=== PATIENT | male | born 1945 | race Caucasian/White ===

== ENCOUNTER → 2017-12-04 08:18 | Outpatient (CLI) | payer OTHER, SELFPAY ==
--- NOTE | 2017-12-04 08:20 | BD_ITS ---
STUDY: DUAL ENERGY X-RAY ABSORPTIOMETRY / DXA REASON FOR EXAM: Male, 71 years old. Osteopenia TECHNIQUE: Bone Mineral Density (BMD) measurements of lumbar spine and bilateral hips were obtained. COMPARISON: None. FINDINGS: Lumbar Spine (L1-L4): g/cm2 (1.219) / T-score (0) / Z-score (0.6) Findings are suggestive of with a fracture risk. Left Femur Total: g/cm2 0.9) / T-score (-1.2) / Z-score (-0.5) Left Femoral Neck: g/cm2 (0.78) / T-score (-2.2) / Z-score (-0.9) Right Femur Total: g/cm2 (0.866) / T-score (-1.6) / Z-score (-0.9) Right Femoral Neck: g/cm2 (0.78) / T-score (-2.2) / Z-score (-0.9) BD/Dexa Bone Density Study IMPRESSION: The patient is considered osteopenic as outlined below according to World [place] Organization (WHO) criteria with an increased fracture risk. There has been of bone density since the previous examination. Reference Information: The T-score is the number of standard deviations above or below the standard which is normal for young adults at their peak bone mineral density. The World Health Organization (WHO) interprets the T-scores as follows: Above -1 Normal bone density Between -1 and -2.5 Osteopenia Equal to / or below -2.5 Osteoporosis As a practical clinical guideline, osteopenia may be graded as follows: Mild -1 through -1.5 Moderate -1.6 through -2.0 Severe -2.1 through -2.4 The Z-score is the number of standard deviations above or below age-matched controls. A Z-score of less than -1.5 would be considered abnormal. References: 1. NIH Osteoporosis and Related Bone Diseases http://www.osteo.org 2. International Society for Clinical Densitometry http://www.iscd.org 3. National Osteoporosis Foundation http://www.nof.org Electronically Signed: Jose M Orellana MD at 22:37 EDT , Service support ,
== END ==
PROVIDERS: Visit Provider Internal Medicine
DX: M85.9 Disorder of bone density and structure, unspecified (principal)
CPT/HCPCS: 77080

== ENCOUNTER → 2019-12-10 16:52 | Outpatient (CLI) | payer MEDICARE, OTHER, SELFPAY ==
[2015-04-19 10:05] VITALS: BMI 28.5
[2019-12-10 17:13] LABS: Absolute Lymphocyte Count 1.43 X10^3/uL (0.83-4.51); Absolute Neutrophil Count 5.1 X10^3/uL (2.0-7.7); Basophil# 0.07 X10^3/uL; Basophil% 0.9 % (0-1); Eosinophil# 0.36 X10^3/uL; Eosinophils% 4.5 % (0-5); Hematocrit 52.3 % (40-54); Hemoglobin 17.5 g/dL (13.0-16.5); Lymphocyte # 1.43 X10^3/ul (4.0); Lymphocyte % 17.8 % (19-41); Mean Corp Hgb Conc 33.5 g/dL (32-36); Mean Corpuscular Hgb 32.2 pg (27.0-32.0); Mean Corpuscular Volume 96.1 fL (80-94); Mean Platelet Vol. 9.2 fl (6.2-12.0); Monocyte# 0.99 X10^3/uL; Monocyte% 12.3 % (0-10); NRBC Flagged by Analyzer 0 % (0-5); Neutrophil # 5.14 X10^3/uL (2.7-7.7); Neutrophil % 63.9 % (47-70); Platelet Count 211 K/mm3 (150-450); RBC Distribution Width CV 12.5 % (11.6-14.6); RBC Distribution Width SD 44.2 fl (35.1-43.9); Red Blood Count 5.44 M/mm3 (4.6-6.2)
[2019-12-10 17:53] LABS: ALB/GLOB Ratio 1.1 RATIO (0.9-2.4); AST(SGOT) 22 U/L (15-37); Alanine Aminotransfer ALT/SGPT 53 U/L (16-61); Albumin, Serum 3.9 g/dL (3.2-5.0); Alkaline Phosphatase 94 U/L (45-117); Anion Gap 4 (5-15); BUN 25 mg/dL (7-18); BUN/Creat Ratio 20.7 RATIO (10-20); Calcium,Total 11.2 mg/dL (8.5-10.1); Chloride 105 mmol/L (98-107); Cholesterol 232 mg/dL (200); Creatinine, Serum 1.21 mg/dL (0.70-1.30); EST Glomerular Filtration Rate 62 mL/min (>60); Est Glom Filt Rate - Afr Amer 75 mL/min (>60); Globulin 3.5 g/dL (2.2-4.2); Glucose 88 mg/dL (74-106); High Density Lipoprotein 41 mg/dL; Potassium 4.4 mmol/L (3.5-5.1); Protein, Total 7.4 g/dL (6.4-8.2); Sodium Level 138 mmol/L (136-145); Thyroid Stim Hormone (TSH) 3.44 uIU/mL (0.358-3.74); Triglycerides 204 mg/dL; Very Low Density Lipoprotein 41 mg/dL (5-40)
[2019-12-11 08:12] LABS: Hepatitis C Antibody Non-Reactive (Nonreactive)
== END ==
PROVIDERS: Visit Provider Family Medicine Geriatric Medicine
DX: R53.83 Other fatigue (principal); E78.49 Other hyperlipidemia; Z13.89 Encounter for screening for other disorder
CPT/HCPCS: 36415; 80053; 80061; 84443; 85025; 86803

== ENCOUNTER → 2019-12-12 13:24 | Outpatient (CLI) | payer MEDICARE, SELFPAY ==
--- NOTE | 2019-12-12 13:32 | VDLE_ITS ---
Reason For Study: Limb pain RIGHT LEFT CFV is compressible, spontaneous, phasic, GSV is normal. competent and demonstrates normal CFV is compressible, spontaneous, phasic, augmentation. competent, and demonstrates normal Procedure augmentation. Exam performed in department. FV is compressible, spontaneous, phasic, A preliminary report was called and/or faxed competent and demonstrates normal to Melquiades. Pt sent up to office. augmentation. Left PopV is partially compressible with minimal venous flow noted. Acute deep vein thrombosis is noted in the left PopV, T/P Trunk, PTV, PeroV and SoleusV. Interpretation Summary Acute deep vein thrombosis is noted in the left popliteal vein. Acute deep vein thrombosis is noted in the left tibio-peroneal trunk. Acute deep vein thrombosis is noted in the left posterior tibial vein. Acute deep vein thrombosis is noted in the left peroneal vein. Acute deep vein thrombosis is noted in the left soleus vein. The left common femoral vein and femoral vein are patent, compressible, and competent. The left great saphenous vein appears patent and compressible segmentally. Ordering Physician: Elmer Arnett Referring Physician: [facility] Performed By: Enid Alejo RVT
== END ==
PROVIDERS: Visit Provider Family Medicine Geriatric Medicine
DX: M79.605 Pain in left leg (principal)
CPT/HCPCS: 93971

== ENCOUNTER → 2020-02-18 08:46 | Outpatient (CLI) | payer MEDICARE, SELFPAY ==
--- NOTE | 2020-02-18 10:33 | NEURO ---
NCS and/or EMG Patient Report Ordering Doctor: Elmer Arnett Chi DATE OF SERVICE: 02/18/20 Toni Morfin is a 74 year old male who presents for electrodiagnostic testing of the lower limbs. He has leg pain and tingling for the past 6 months. Electrodiagnostic Findings: Normal left common peroneal and tibial motor responses. Normal left superficial peroneal response. Normal left tibial and peroneal F-waves. Prolonged left H-reflex. At this point, the patient refused any further testing due to intolerance for the examination. Electrodiagnostic Assessment: This is a limited study. Normal motor and sensory responses are identified on the right side. However, the examination is incomplete and a conclusion cannot be reached from this test. If there are any further questions, please do not hesitate to contact me
== END ==
PROVIDERS: Referring Provider Family Medicine Geriatric Medicine; Visit Provider Family Medicine Geriatric Medicine
DX: R20.9 Unspecified disturbances of skin sensation (principal); M79.605 Pain in left leg
CPT/HCPCS: 95908

== ENCOUNTER 2020-06-02 09:10 | Day surgery (SDC) | payer MEDICARE, OTHER, SELFPAY ==
[2020-05-20 14:27] VITALS: BMI 30.1
[2020-06-02] VITALS (7 sets, daily range): BP systolic 94–132; BP diastolic 52–85; PULSE 73–89; RESP 14–18; TEMP 36.2–36.6; O2SAT 93–99; BMI 30.1
[2020-06-02] MEDS: Lactated Ringers 1,000 ML 100 ML IV (09:52)
--- NOTE | 2020-06-02 10:33 | OP.CCLET_ITS ---
06/02/2020 [facility] Re : Colonoscopy procedure for [facility] This procedure was performed on Tuesday, June 02, 2020. My impressions and recommendations are as follows: Impressions : - The entire examined colon is normal on direct and retroflexion views. - No specimens collected. Recommendations : - Discharge patient to home. - Resume previous diet. - Continue present medications. - Resume Xarelto (rivaroxaban) at prior dose today. - Repeat colonoscopy is not recommended due to current age (66 years or older) for screening purposes. My findings are described in the full procedure note, which is enclosed. If I can be of further assistance, please feel free to contact me at Doctor phone number(s): , Work: . Sincerely, Finn Romano MD 06/02/2020 10:33:00 AM This report has been signed electronically.
--- NOTE | 2020-06-02 10:33 | OP.COLON_ITS ---
Patient Name: Toni Morfin Procedure Date: 06/02/2020 9:46 AM Date of : 1945 Age: 74 Procedure: Colonoscopy Indications: Screening for colorectal malignant neoplasm Providers: Finn Romano MD Referring MD: [facility] Medicines: Monitored Anesthesia Care Patient Profile: This is a 74 year old male. Refer to note in patient chart for documentation of history and physical. Last Colonoscopy: more than 10 years ago. Complications: No immediate complications. Procedure: Pre-Anesthesia Assessment: - Prior to the procedure, a History and Physical was performed, and patient medications and allergies were reviewed. The patient's tolerance of previous anesthesia was also reviewed. The risks and benefits of the procedure and the sedation options and risks were discussed with the patient. All questions were answered, and informed consent was obtained. Prior Anticoagulants: The patient has taken Xarelto (rivaroxaban), last dose was 2 days prior to procedure. After reviewing the risks and benefits, the patient was deemed in satisfactory condition to undergo the procedure. After I obtained informed consent, the scope was passed under direct vision. Throughout the procedure, the patient's blood pressure, pulse, and oxygen saturations were monitored continuously. The pediatric colonoscope was introduced through the anus and advanced to the cecum, identified by the appendiceal orifice, ileocecal valve and palpation. The colonoscopy was performed without difficulty. The patient tolerated the procedure well. The quality of the bowel preparation was good. Scope In: 10:18:03 AM Scope Withdrawal Time 0 hours 6 minutes 17 seconds Scope Out: 10:29:20 AM Total Procedure Duration Time 0 hours 11 minutes 17 seconds Findings: The entire examined colon appeared normal on direct and retroflexion views. Impression: - The entire examined colon is normal on direct and retroflexion views. - No specimens collected. Recommendation: - Discharge patient to home. - Resume previous diet. - Continue present medications. - Resume Xarelto (rivaroxaban) at prior dose today. - Repeat colonoscopy is not recommended due to current age (66 years or older) for screening purposes. Procedure Code(s): --- Professional --- G0121, Colorectal cancer screening; colonoscopy on individual not meeting criteria for high risk Diagnosis Code(s): --- Professional --- Z12.11, Encounter for screening for malignant neoplasm of colon CPT copyright 2017 [employer]. All rights reserved. The codes documented in this report are preliminary and upon jewelry sales coordinator review may be revised to meet current compliance requirements. Finn Romano MD 06/02/2020 10:33:00 AM This report has been signed electronically. Number of Addenda: 0 Note Initiated On: 06/02/2020 9:46 AM
--- NOTE | 2020-06-02 11:25 | HP_ITS ---
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: No Is patient in pain?: No Allergies No Known Allergies Allergy (Verified 05/20/20 14:27) Medications Rosuvastatin Calcium [Crestor] 40 mg PO QHS 05/04/14 [History Confirmed 04/17/15] Clopidogrel Bisulfate [Plavix] 75 mg PO DAILY 05/22/14 [History Confirmed 04/17/15] Metoprolol Tartrate [Lopressor (beta neno)] 25 mg PO BID #0 04/19/15 [Rx Confirmed 04/17/15] cholecalciferol (vitamin D3) 50 mcg (2,000 unit) capsule 50 mcg PO DAILY 05/20/20 [History Confirmed 05/20/20] cinacalcet 30 mg tablet 30 mg PO BID 05/20/20 [History Confirmed 05/20/20] lisinopril 10 mg tablet 2.5 mg PO DAILY tab 05/20/20 [History] rivaroxaban 20 mg tablet 20 mg PO DAILY 05/20/20 [History Confirmed 05/20/20] PFSH Medical History Condyloma acuminata (Acute) Hyperlipidemia (Acute) Hyperparathyroidism (Acute) RLS (restless legs syndrome) (Acute) Sleep apnea (Acute) Dog bite (Acute) DVT (deep venous thrombosis) (Acute) Coronary artery disease (Chronic) Surgical History s/p shrapnel removal (Acute) S/P hernia repair (Acute) Status post hemorrhoidectomy (Acute) Family History Mother Breast cancer Sister Breast cancer Social History (Updated 05/20/20 @ 14:[address] Finn Romano MD) Smoking Status: Never smoker alcohol intake: never HPI HPI HPI: YAHAIRA PÉREZ, is a 74 M who presents to the office today for HPI HPI Surgical H&P: Yes HPI: YAHAIRA BETO, is a 74 M who presents to the office today for Colonoscopy. The patient has last colonoscopy over 10 years ago and no polyps were found. He is not having any abdominal pain or blood in his stool. ROS General General: No weight change or fatigue Cardio Cardiovascular: No murmur, pacemaker, heart disease, atrial fibrillation, high blood pressure, heart attack, heart stent, palpitations, shortness of breat with exertion or chest pain Psych Psychiatric: No depression or anxiety Resp Respiratory: No shortness of breath, No sleep apnea, No cough, No COPD, No asthma, No emphysema, No wheezing Gastro Gastrointestinal: No abdominal pain, No nausea or vomiting, No diarrhea, No constipation, No blood in stool, No acid reflux, No hemorrhoids, No ulcers, No gallbladder problem, No black,tarry stools Luis Hematologic: No blood thinners Exam Const General: cooperative Orientation: alert, oriented x3 Resp Effort & Inspection: normal respiratory effort Auscultation: clear to auscultation bilaterally Cardio Rate: regular rate Rhythm: regular rhythm Heart Sounds: no murmurs GI Inspection: non-distended Palpation: soft, nontender Assessment & Plan Problems 1. Screening for colon cancer Z12.11 Plan Patient required screening colonoscopy. His last colonoscopy was over 10 years ago and was normal. Patient is on both Xarelto and Plavix. I would recommend he stop Xarelto 3 days before surgery but continue his Plavix. I explained endoscopy in detail to the patient. I explained the risks including but not limited to stroke or heart attack with anesthesia, perforation of the GI tract, bleeding, infection. I explained that any of these could necessitate further emergency surgery. The patient understands and all questions were answered sufficiently. The patient wishes to proceed with procedure. We discussed the current risks associated with COVID-19. While it is understood that there is a community spread of COVID-19, the risk of bal[place] COVID-19 while at [facility] ([facility]) is very low; however, the risk cannot be completely mitigated because of the community spread of the disease. We discussed in detail the risk of exposure to and/or potential harm posed by the COVID-19 virus with having a surgery/procedure at this time versus the risk of delaying the surgery/procedure. It is not possible to know either the risk of delaying the surgery or procedure or chance of getting an infection with perfect accuracy, but a joint decision was made to proceed at this time with the scheduled surgery/procedure as indicated on the consent form. Patient was notified that we will need to comply with any screening or testing [facility] wishes to perform or that surgery may be delayed for any positive results. Finn Romano MD Pager: [facility] [address] [place] [address], [address] [place] [address] Office: Coding Level of Care Code Off vis,new,level 2 Diagnoses Screening for colon cancer Z12.11 I have re-examined the patient. There are no clinical changes since date of exam.
== END 2020-06-02 11:16 | disposition home or self-care (01) ==
LOC: EN 09:10 → AC 09:11
PROVIDERS: Anesthesiology; Visit Provider Surgery
PROC: 0DJD8ZZ Inspection of Lower Intestinal Tract, Via Natural or Artificial Opening Endoscopic (ICD-10-PCS; CPT 45378; principal; 2020-06-02 10:10)
DX: Z12.11 Encounter for screening for malignant neoplasm of colon (principal); E78.5 Hyperlipidemia, unspecified; E21.3 Hyperparathyroidism, unspecified; G25.81 Restless legs syndrome; G47.30 Sleep apnea, unspecified; I10 Essential (primary) hypertension; I25.10 Atherosclerotic heart disease of native coronary artery without angina pectoris; I25.2 Old myocardial infarction; E78.00 Pure hypercholesterolemia, unspecified; Z87.442 Personal history of urinary calculi; Z86.718 Personal history of other venous thrombosis and embolism; Z95.5 Presence of coronary angioplasty implant and graft; Z79.01 Long term (current) use of anticoagulants; Z79.02 Long term (current) use of antithrombotics/antiplatelets; Z79.899 Other long term (current) drug therapy
CPT/HCPCS: G0121; 87635; C9803; J7120; J2405; U0003

== ENCOUNTER 2021-12-01 00:48 | Emergency (ER) | payer OTHER, SELFPAY ==
[2021-12-01 00:49] VITALS: BP 170/93; PULSE 67; RESP 97; TEMP 36.6; BMI 30.1
--- NOTE | 2021-12-01 01:25 | CT_ITS ---
STUDY: CT ABDOMEN AND PELVIS WITHOUT CONTRAST REASON FOR EXAM: Male, 75 years old. right flank pain RADIATION DOSAGE (If Supplied By Facility): CTDIvol = ( 13.29 ) mGy, DLP = ( 760.39 ) mGycm TECHNIQUE: Transaxial images were obtained from the dome of the diaphragm to the symphysis pubis without oral contrast, and without intravenous contrast. Sagittal and coronal images were reconstructed. Individualized dose optimization techniques were used for this CT. COMPARISON: CT abdomen pelvis 04/16/2015 LIMITATIONS: None. LOWER CHEST: Coronary artery calcifications. LIVER: Hypoattenuating left hepatic lesion, similar compared to the prior, too small to characterize.. GALLBLADDER/BILE DUCTS: Normal. PANCREAS: Normal. SPLEEN: Normal. ADRENAL GLANDS: Normal. KIDNEYS/URETERS/BLADDER: Mild urinary bladder wall thickening. Punctate nonobstructive left nephrolithiasis again seen. Mild right hydroureteronephrosis due to a 11 mm calculus in the distal right ureter. Mild right perinephric and periureteral fat stranding. RETROPERITONEUM/AORTA: Moderate atherosclerotic calcifications. BOWEL/MESENTERY: Scattered colonic diverticulosis without discrete evidence of acute diverticulitis. No bowel dilatation or bowel wall thickening. APPENDIX: Identified and normal. PERITONEUM: Normal. REPRODUCTIVE ORGANS: Prostatomegaly BONES/SOFT TISSUES: No acute abnormality. OTHER: None. CT/Abdomen/Pelvis without Cont IMPRESSION: 1. Mild right hydroureteronephrosis due to a 11 mm calculus in the distal right ureter. 2. Punctate nonobstructive left nephrolithiasis. 3. Mild urinary bladder wall thickening and prostatomegaly, may be due to decompression, cystitis or chronic bladder outlet obstruction. Electronically Signed: Javy Aguayo MD at 3:13 EDT ,
[2021-12-01 02:20] LABS: Absolute Lymphocyte Count 1.19 X10^3/uL (0.83-4.51); Absolute Neutrophil Count 2.6 X10^3/uL (2.0-7.7); Basophil# 0.04 X10^3/uL; Basophil% 0.8 % (0-1); Eosinophil# 0.18 X10^3/uL; Eosinophils% 3.8 % (0-5); Hematocrit 45.4 % (40-54); Hemoglobin 15.3 g/dL (13.0-16.5); Lymphocyte # 1.19 X10^3/ul (0.83-4.51); Lymphocyte % 24.8 % (19-41); Mean Corp Hgb Conc 33.7 g/dL (32-36); Mean Corpuscular Hgb 32.3 pg (27.0-32.0); Mean Corpuscular Volume 95.8 fL (80-94); Mean Platelet Vol. 9.5 fl (6.2-12.0); Monocyte% 16.7 % (0-10); NRBC Flagged by Analyzer 0 % (0-5); Neutrophil # 2.55 X10^3/uL (2.7-7.7); Neutrophil % 53.3 % (47-70); Platelet Count 181 K/mm3 (150-450); RBC Distribution Width CV 12.8 % (11.6-14.6); RBC Distribution Width SD 45.4 fl (35.1-43.9); Red Blood Count 4.74 M/mm3 (4.6-6.2); White Blood Count 4.8 K/mm3 (4.4-11.0)
[2021-12-01 02:23] LABS: Mucous, Urine 0 SEEN /hpf (<or=2+); Squamous Epithelial Cells - UA 0 SEEN /hpf (0-5); White Blood Cells 0 SEEN /hpf (0-5)
[2021-12-01 02:24] LABS: Color, Urine Yellow (Yellow); Glucose, Dipstick Normal (Normal); Ketone-Dipstick Negative (Negative); Leukocyte Esterase-Dipstick Negative /ul (Negative); Nitrite-Dipstick Negative (Negative); Occult Blood-Urine 10 /ul (Negative); Protein-Dipstick 15 mg/dl (Negative); Urine Bilirubin Dipstick Negative (Negative); Urine Clarity Clear (Clear); Urine Urobilinogen Normal (Normal)
[2021-12-01] MEDS: 0.9% Normal Saline 1,000 ML 999 ML IV (02:24)
[2021-12-01] MEDS: Ketorolac 15 MG/ML Vial IV (02:24)
[2021-12-01 02:25] VITALS: BP 127/81; PULSE 61; RESP 18; O2SAT 100
[2021-12-01 02:33] LABS: Bacteria 1+ /hpf (None Seen); Red Blood Cells-Urine 0-5 SEEN /hpf (0-5)
[2021-12-01 02:45] LABS: Anion Gap 5 (5-15); BUN 21 mg/dL (7-18); BUN/Creat Ratio 17.6 RATIO (10-20); Calcium,Total 10.2 mg/dL (8.5-10.1); Chloride 109 mmol/L (98-107); Creatinine, Serum 1.19 mg/dL (0.70-1.30); EST Glomerular Filtration Rate 63 mL/min (>60); Est Glom Filt Rate - Afr Amer 76 mL/min (>60); Estimated Creatinine Clearance 53.64 ml/min; Glucose 98 mg/dL (74-106); Potassium 4.6 mmol/L (3.5-5.1); Sodium Level 139 mmol/L (136-145)
[2021-12-01] MEDS: Ondansetron 4 MG/2 ML Vial IV (03:28)
[2021-12-01] MEDS: Morphine 4 MG/ML Syringe IV (03:28)
--- NOTE | 2021-12-01 04:03 | EDS_ITS ---
HPI History of Present Illness Chief Complaint: Flank Pain Narrative Narrative: Patient is a 75-year-old male who presents with right-sided flank. Patient states he was laying down to go to bed when he had sudden onset sharp right-sided flank pain wrapping towards his lower abdomen. He reports that he has had a history of kidney stones in the past and this feels similar nature. He denies any fevers or chills and he denies any recent trauma or excessive activity. He states that the pain is spontaneously improving but as he had concern he developed a stone once again presents for evaluation [facility] Medical History (Updated 12/01/21 @ 04:[address] Jose Landaverde, DO) Condyloma acuminata Coronary artery disease Dog bite DVT (deep venous thrombosis) Hyperlipidemia Hyperparathyroidism Kidney stones RLS (restless legs syndrome) Sleep apnea Home Medications rosuvastatin 40 mg PO QHS 05/04/14 [History Last Taken 04/16/15] clopidogrel 75 mg PO DAILY 05/22/14 [History Last Taken 04/16/15] metoprolol tartrate 25 mg PO BID #0 04/19/15 [Rx Last Taken 04/16/15] cholecalciferol (vitamin D3) 50 mcg (2,000 unit) capsule 50 mcg PO DAILY 05/20/20 [History Last Taken Unknown] L.acid-L.rham-B.breve-S.therm [Probiotic] 1 tab PO DAILY 12/01/21 [History Last Taken Unknown] ascorbic acid (vitamin C) [Vitamin C] 1 g PO DAILY 12/01/21 [History Last Taken Unknown] cephalexin 500 mg PO TID 7 Days #21 cap 12/01/21 [Rx Last Taken Unknown] oxycodone-acetaminophen [Percocet] 1 tab PO Q6H PRN 3 Days #12 tab 12/01/21 [Rx Last Taken Unknown] tamsulosin [Flomax] 0.4 mg PO DAILY 14 Days #14 cap 12/01/21 [Rx Last Taken Unknown] Allergy/AdvReac Type Severity Reaction Status Date / Time No Known Allergies Allergy Verified 05/26/20 11:27 Family History Mother Breast cancer Sister Breast cancer Surgical History S/P hernia repair s/p shrapnel removal Status post hemorrhoidectomy Social History (Updated 05/20/20 @ 14:[address] Finn Romano MD) Smoking Status: Never smoker alcohol intake: never ROS ROS ED Constitutional Constitutional ED: Denies chills or fever(s) ENT ENT ED: Denies sore throat Cardiovascular Cardiovascular: Denies chest pain Respiratory/Chest Respiratory/Chest: Denies cough or dyspnea Gastrointestinal Gastrointestinal: Reports abdominal pain and nausea; Denies diarrhea or vomiting Genitourinary Genitourinary ED: Denies dysuria or hematuria Musculoskeletal Musculoskeletal: Reports back pain; Denies myalgias Integumentary Denies rash Neurologic Neurologic: Denies headache(s) Hematologic/Lymphatic Hematologic/Lymphatic: Denies easy bleeding or easy bruising EXAM Physical Exam Const Vital Signs: 12/01/21 00:49 12/01/21 02:25 Temperature 97.8 F Temperature Source Oral Pulse Rate 67 61 Respiratory Rate 97 H 18 Blood Pressure 170/93 H 127/81 H Blood Pressure Mean 118 96 Pulse Ox 100 Oxygen Delivery Method Room Air Room Air Positive well nourished and well developed General Appearance ED: well developed Eyes PERRL and EOMs intact bilaterally Neck supple Resp normal respiratory effort and clear to auscultation bilaterally Cardio regular rate and regular rhythm Rate: other Other Details: Radial pulses are +2-4 bilaterally are equal and symmetric GI normal to inspection, nondistended, normoactive bowel sounds, non-tender, non- distended and no masses GI Narrative: No voluntary guarding or rigidity no pulsatile mass Auscultation: normoactive bowel sounds Palpation: soft Back/Spine Back/Spine Narrative: Positive right CVA pain Extremity normal to inspection Neuro oriented x3 and CN's II-XII intact bilaterally Sensorium / Orientation: alert Motor Exam: strength 5/5 throughout Psych mental status grossly normal Skin no rashes or lesions noted Skin Narrative: No overlying soft tissue changes to suggest trauma or infection MDM MDM MDM Narrative Medical decision making narrative: Patient presented to the ER with stable vitals and a history and physical exam most consistent with a kidney stone. Secondary to his basic blood work and a noncontrast CT report. Blood work revealed no signs of acute kidney injury or urosepsis. CT scan confirmed a 11 mm stone in the right distal ureter. At this time the stone is very large and his chance for passing it is low but despite this has been able to move the stone to the distal ureter and he does not have signs of acute kidney injury or urosepsis. His pain is also been controlled in the ER. Therefore I feel that it is acceptable to put the patient on medication and have him follow-up with urology to discuss need for stent placement. The plan of care was discussed with the patient and they are agreeable to this and therefore we discharged at this time. Lab Data Attestation: I reviewed the patient's lab results. Labs: Laboratory Results - last 24 hr 12/01/21 12/01/21 12/01/21 01:40 01:40 02:15 WBC 4.8 RBC 4.74 Hgb 15.3 Hct 45.4 MCV 95.8 H MCH 32.3 H MCHC 33.7 RDW Std Deviation 45.4 H RDW Coeff of Tommie 12.8 Plt Count 181 MPV 9.5 Immature Gran % (Auto) 0.600 Neut % (Auto) 53.3 Lymph % (Auto) 24.8 [place] % (Auto) 16.7 H Eos % (Auto) 3.8 Baso % (Auto) 0.8 Absolute Neuts (auto) 2.6 Absolute Lymphs (auto) 1.19 Nucleated RBC % 0 Sodium 139 Potassium 4.6 Chloride 109 H Carbon Dioxide 25.0 Anion Gap 5 BUN 21 H Creatinine 1.19 Estim Creat Clear Calc 53.64 Est GFR (MDRD) Af Amer 76 Est GFR (MDRD) Non-Af 63 BUN/Creatinine Ratio 17.6 Glucose 98 Calcium 10.2 H Urine Color Yellow Urine Clarity Clear Urine pH 6.0 Ur Specific [place] 1.020 Urine Protein 15 H Urine Glucose (UA) Normal Urine Ketones Negative Urine Occult Blood 10 H Urine Nitrite Negative Urine Bilirubin Negative Urine Urobilinogen Normal Ur Leukocyte Esterase Negative Urine RBC 0-5 SEEN Urine WBC 0 SEEN Ur Squamous Epith Cells 0 SEEN Urine Bacteria 1+ Urine Mucus 0 SEEN Radiography Diagnostic Testing: Clinical Impression(s) from Imaging Studies Abdomen/Pelvis CT 12/01/21 01:25 IMPRESSION: 1. Mild right hydroureteronephrosis due to a 11 mm calculus in the distal right ureter. 2. Punctate nonobstructive left nephrolithiasis. 3. Mild urinary bladder wall thickening and prostatomegaly, may be due to decompression, cystitis or chronic bladder outlet obstruction. Electronically Signed: Javy Aguayo MD at 3:13 EDT , Discharge Plan Triage Chief Complaint: Flank Pain ED Provider: Jose Landaverde Dx/Rx/DC Orders Clinical Impression: Kidney stone on right side, Renal colic Instructions: ED Kidney Stone w/ Colic Prescriptions: New cephalexin 500 mg capsule 500 mg PO TID 7 Days Qty: 21 RF: 0 tamsulosin [Flomax] 0.4 mg capsule 0.4 mg PO DAILY 14 Days Qty: 14 RF: 0 oxycodone-acetaminophen [Percocet] 5-325 mg tablet 1 tab PO Q6H PRN (Reason: pain) 3 Days Qty: 12 RF: 0 No Action cholecalciferol (vitamin D3) 50 mcg (2,000 unit) capsule 50 mcg PO DAILY RF: 0 rosuvastatin 5 MG tablet 40 mg PO QHS RF: 0 clopidogrel 75 MG tablet 75 mg PO DAILY RF: 0 metoprolol tartrate 25 MG tablet 25 mg PO BID Qty: 0 RF: 0 ascorbic acid (vitamin C) [Vitamin C] 1,000 mg Tablet 1 g PO DAILY RF: 0 Probiotic 3 billion cell Tablet,Chewable 1 tab PO DAILY RF: 0 [facility] Provider[facility] Referrals: Obdulio Smith MD [STAFF PHYSICIAN] - 3-5 Days [facility] [Primary Care Provider] - Activity Restrictions/Additional Instructions: Please follow-up with urology to discuss need for possible stent placement secondary to your kidney stone. Please return to the ER should you develop a fever over 100.4 or your pain is not controlled with outpatient treatment Disposition Disposition: Home, Self Care Discharge Date/Time: 12/01/21 04:24
[2021-12-01] MEDS: Cephalexin 250 MG Capsule 500 MG PO (04:18)
[2021-12-01] MEDS: oxyCODONE 5 MG Tablet PO (04:18)
== END 2021-12-01 04:24 | disposition home or self-care (01) ==
PROVIDERS: Emergency Provider Emergency Medicine; Visit Provider Emergency Medicine
DX: N13.2 Hydronephrosis with renal and ureteral calculous obstruction (principal); E78.5 Hyperlipidemia, unspecified; I25.10 Atherosclerotic heart disease of native coronary artery without angina pectoris; Z86.718 Personal history of other venous thrombosis and embolism; G25.81 Restless legs syndrome; Z87.442 Personal history of urinary calculi; Z79.899 Other long term (current) drug therapy; Z79.02 Long term (current) use of antithrombotics/antiplatelets
CPT/HCPCS: 74176; 80048; 81001; 85025; 96361; 96374; 96375; 99282; J7030; J2405

== ENCOUNTER 2021-12-06 14:41 | Day surgery (SDC) | payer MEDICARE, SELFPAY ==
[2021-12-06] VITALS (7 sets, daily range): BP systolic 106–156; BP diastolic 63–87; PULSE 70–76; RESP 16; TEMP 36.6–36.9; O2SAT 91–99; BMI 29.7
[2021-12-06] MEDS: Lactated Ringers 1,000 ML 15 ML IV (15:12)
--- NOTE | 2021-12-06 15:44 | PCM.DC ---
Discharge Instructions Diet Discharge Diet: No restrictions Activity Discharge Activity: Return to Normal Activity and May Not Drive (while taking narcotic pain medications.) Dressing / Incision Call your doctor if you observe: Fever of 101 or Higher Follow Up Care Please Follow Up With: Obdulio Smith MD When: Call [phone] for an appointment Test Results: Test results from this visit will be discussed in further detail at your follow-up appointment, if applicable. Discharge Plan Admission Attending Provider: Obdulio Smith Primary Care Provider: [facility] Discharge Orders/Prescriptions Prescriptions: No Action cholecalciferol (vitamin D3) 50 mcg (2,000 unit) capsule 50 mcg PO DAILY RF: 0 rosuvastatin 5 MG tablet 40 mg PO QHS RF: 0 clopidogrel 75 MG tablet 75 mg PO DAILY RF: 0 metoprolol tartrate 25 MG tablet 25 mg PO BID Qty: 0 RF: 0 ascorbic acid (vitamin C) [Vitamin C] 1,000 mg Tablet 1 g PO DAILY RF: 0 Probiotic 3 billion cell Tablet,Chewable 1 tab PO DAILY RF: 0 cephalexin 500 mg capsule 500 mg PO TID 7 Days Qty: 21 RF: 0 tamsulosin [Flomax] 0.4 mg capsule 0.4 mg PO DAILY 14 Days Qty: 14 RF: 0 oxycodone-acetaminophen [Percocet] 5-325 mg tablet 1 tab PO Q6H PRN (Reason: pain) 3 Days Qty: 12 RF: 0
--- NOTE | 2021-12-06 15:44 | PCM.OPRPT ---
Problems Associated Problem List Diagnoses (1) Kidney stone on right side: Report of Operation Date of Procedure: 12/06/21 Pre-Operative Diagnosis: right kidney stone Post-Operative Diagnosis: same Surgery/Procedure Performed:: cystoscopy and right stent placement. Description of Surgical Findings:: Patient was taken back to the operating room after induction of general anesthesia, the patient was placed in dorsolithotomy position. The urethra and genitals were prepped and draped in usual sterile fashion. Using a 21 Macanese rigid cystourethroscope the entire length of the urethra was normal then went into the bladder. Identified the trigone the left and right ureteral orifice. I then cannulated the right orifice and advanced a wire up into the kidney. I then backloaded a 5 Macanese open ended catheter over the wire and injected contrast to delineate the anatomy. After the retrograde was performed I then used fluoroscopic images and guidance to advanced a wire up into the kidney and over the 0.038 glidewire I advanced a 6 Macanese by 26 cm double pigtail stent. I then pulled the 0.038 Glidewire off and the stent coiled in the kidney bladder good position. The bladder was then drained. We confirmed the position of the stent by fluoroscopy. Patient anesthetic was reversed and was taken back to the PACU in good condition. Surgeon: pilo Type of Anesthesia: General Drains: stent right Admit VTE Documentation VTE Present on Admission: No VTE Mechan Device Prophylaxis: SCD's VTE Pharm Prophylaxis ordered?: No
[2021-12-06] MEDS: Cefazolin 1 GM/50 ML BAG IV (15:47)
[2021-12-06] MEDS: Lidocaine Jelly 2% 20 ML Syringe (URO-JET) 1 APPLIC (15:52)
--- NOTE | 2021-12-07 14:54 | HP.PCM_ITS ---
HPI - General HPI Narrative YAHAIRA PÉREZ, is a 75 M who presents with a kidney stone and plan to place as stent today. [facility] Medical History (Updated 12/01/21 @ 04:[address] Jose Landaverde DO) Condyloma acuminata Coronary artery disease Dog bite DVT (deep venous thrombosis) Hyperlipidemia Hyperparathyroidism Kidney stones RLS (restless legs syndrome) Sleep apnea Home Medications rosuvastatin 40 mg PO QHS 05/04/14 [History Last Taken 04/16/15] clopidogrel 75 mg PO DAILY 05/22/14 [History Last Taken 12/06/21] metoprolol tartrate 25 mg PO BID #0 04/19/15 [Rx Last Taken 04/16/15] cholecalciferol (vitamin D3) 50 mcg (2,000 unit) capsule 50 mcg PO DAILY 05/20/20 [History Last Taken Unknown] L.acid-L.rham-B.breve-S.therm [Probiotic] 1 tab PO DAILY 12/01/21 [History Last Taken Unknown] ascorbic acid (vitamin C) [Vitamin C] 1 g PO DAILY 12/01/21 [History Last Taken Unknown] cephalexin 500 mg PO TID 7 Days #21 cap 12/01/21 [Rx Last Taken 12/06/21] oxycodone-acetaminophen [Percocet] 1 tab PO Q6H PRN 3 Days #12 tab 12/01/21 [Rx Last Taken 12/06/21] tamsulosin [Flomax] 0.4 mg PO DAILY 14 Days #14 cap 12/01/21 [Rx Last Taken 12/06/21] ciprofloxacin HCl [Cipro] 500 mg PO BID #6 tab 12/06/21 [Rx Last Taken Unknown] oxycodone-acetaminophen 1 tab PO Q6H PRN 7 Days #14 tab 12/06/21 [Rx Last Taken Unknown] Allergy/AdvReac Type Severity Reaction Status Date / Time No Known Allergies Allergy Verified 12/06/21 14:54 Family History Mother Breast cancer Sister Breast cancer Surgical History S/P hernia repair s/p shrapnel removal Status post hemorrhoidectomy Social History (Updated 05/20/20 @ 14:[address] Finn Romano MD) Smoking Status: Never smoker alcohol intake: never Vital Signs Vital Signs Vital Signs: 12/06/21 14:57 12/06/21 16:03 12/06/21 16:06 Temperature 97.9 F 98.1 F Temperature Source Temporal Temporal Pulse Rate 72 76 73 Respiratory Rate 16 16 16 Respiratory Pattern Normal Normal Blood Pressure 156/87 H 106/65 112/66 Blood Pressure Mean 110 78 81 Blood Pressure Source Monitor Monitor Monitor Blood Pressure Position Semi-Fowlers Semi-Fowlers Semi-Fowlers Blood Pressure Location Right Arm Left Arm Left Arm Baseline BP 156/87 156/87 Pulse Ox 99 93 91 Oxygen Delivery Method Room Air Room Air Room Air 12/06/21 16:10 12/06/21 16:15 12/06/21 16:19 Temperature 98.4 F Temperature Source Temporal Pulse Rate 71 70 73 Respiratory Rate 16 16 16 Respiratory Pattern Blood Pressure 112/63 122/70 H 134/75 H Blood Pressure Mean 79 87 94 Blood Pressure Source Monitor Monitor Monitor Blood Pressure Position Semi-Fowlers Semi-Fowlers Semi-Fowlers Blood Pressure Location Right Arm Left Arm Left Arm Baseline BP 156/87 156/87 156/87 Pulse Ox 93 93 96 Oxygen Delivery Method Room Air Room Air Room Air 12/06/21 16:33 12/06/21 16:56 Temperature 98.1 F Temperature Source Temporal Pulse Rate 72 Respiratory Rate 16 Respiratory Pattern Normal Blood Pressure 135/63 H Blood Pressure Mean 87 Blood Pressure Source Monitor Blood Pressure Position Sitting Blood Pressure Location Left Arm Baseline BP 156/87 Pulse Ox 96 Oxygen Delivery Method Room Air Weight Weight: 91.172 kg Body Mass Index (BMI) 29.7
== END 2021-12-06 16:58 | disposition home or self-care (01) ==
LOC: SDC 14:44 → AC 14:48
PROVIDERS: Visit Provider Urology
PROC: (CPT 52332; principal; 2021-12-06 16:30)
DX: N20.0 Calculus of kidney (principal); E78.5 Hyperlipidemia, unspecified; Z86.718 Personal history of other venous thrombosis and embolism; I25.10 Atherosclerotic heart disease of native coronary artery without angina pectoris; Z87.442 Personal history of urinary calculi; G25.81 Restless legs syndrome; Z79.899 Other long term (current) drug therapy; Z79.02 Long term (current) use of antithrombotics/antiplatelets; G47.30 Sleep apnea, unspecified
CPT/HCPCS: 52332; 00910; 76000; J7120; C1769; C2617; J2405

== ENCOUNTER → 2021-12-08 | Outpatient (CLI) | payer MEDICARE, SELFPAY ==
--- NOTE | 2021-12-08 10:54 | EKG12_ITS ---
Test Reason : PRE-OP Blood Pressure : / mmHG Vent. Rate : 065 BPM Atrial Rate : 065 BPM P-R Int : 138 ms QRS Dur : 098 ms QT Int : 408 ms P-R-T Axes : -08 -14 -30 degrees QTc Int : 424 ms Normal sinus rhythm Inferior infarct , age undetermined Abnormal ECG Confirmed by RUSLAN LAWRENCE, KATHERINE ([id number]), editor managing newspaper ONELIA GUTIERREZ ([id number]) on 12/09/2021 9:44:05 AM Referred By: KAREN Confirmed By:ADARSH MERCER MD
== END | disposition home or self-care (01) ==
LOC: PSN 10:31
PROVIDERS: Visit Provider Urology
DX: Z01.810 Encounter for preprocedural cardiovascular examination (principal)
CPT/HCPCS: 93005

== ENCOUNTER 2021-12-10 13:35 | Emergency (ER) | payer OTHER, SELFPAY ==
[2021-12-10 13:35] VITALS: BP 155/90; PULSE 72; RESP 16; TEMP 36.3; O2SAT 99; BMI 29.5
--- NOTE | 2021-12-10 13:50 | ED.VIS.GI ---
HPI HPI - GI History of Present Illness Chief Complaint: Flank Pain Informant: patient and spouse/S.O. Abdominal Pain/Flank Pain Onset: Yesterday Context: - (since lithotripsy yesterday for R kid stone) Timing: Continuous Quality: Aching Location: Right Flank Current Severity: Severe Maximum Severity: Severe Worsened by: Nothing Relieved by: Nothing (tried Rx analgesic) Nausea/Vomiting/Emesis GI Symptom: Positive for Nausea; Negative for Vomiting Onset: Today Severity: Mild Diarrhea/Melena/Hematochezia GI Symptom: Negative for Diarrhea, Melena and Hematochezia Associated Symptoms Associated Symptoms: Negative for Dysuria, Frequency and Hematuria Narrative Narrative: Patient with kidney stone on the right, he had lithotripsy yesterday, discharged with pain medication and nausea medication, he states the pain medication is not controlling his pain. He has no other symptoms. [facility] Medical History Condyloma acuminata Coronary artery disease Dog bite DVT (deep venous thrombosis) Hyperlipidemia Hyperparathyroidism Kidney stones RLS (restless legs syndrome) Sleep apnea Home Medications rosuvastatin 40 mg PO QHS 05/04/14 [History Last Taken 04/16/15] clopidogrel 75 mg PO DAILY 05/22/14 [History Last Taken 12/06/21] metoprolol tartrate 25 mg PO BID #0 04/19/15 [Rx Last Taken 04/16/15] cholecalciferol (vitamin D3) 50 mcg (2,000 unit) capsule 50 mcg PO DAILY 05/20/20 [History Last Taken Unknown] L.acid-L.rham-B.breve-S.therm [Probiotic] 1 tab PO DAILY 12/01/21 [History Last Taken Unknown] ascorbic acid (vitamin C) [Vitamin C] 1 g PO DAILY 12/01/21 [History Last Taken Unknown] cephalexin 500 mg PO TID 7 Days #21 cap 12/01/21 [Rx Last Taken 12/06/21] oxycodone-acetaminophen [Percocet] 1 tab PO Q6H PRN 3 Days #12 tab 12/01/21 [Rx Last Taken 12/06/21] tamsulosin [Flomax] 0.4 mg PO DAILY 14 Days #14 cap 12/01/21 [Rx Last Taken 12/06/21] ciprofloxacin HCl [Cipro] 500 mg PO BID #6 tab 12/06/21 [Rx Last Taken Unknown] oxycodone-acetaminophen 1 tab PO Q6H PRN 7 Days #14 tab 12/06/21 [Rx Last Taken Unknown] oxycodone-acetaminophen 1 tab PO Q4H PRN 2 Days #12 tablet 12/10/21 [Rx Last Taken Unknown] Allergy/AdvReac Type Severity Reaction Status Date / Time No Known Allergies Allergy Verified 12/10/21 13:37 Family History Mother Breast cancer Sister Breast cancer Surgical History S/P hernia repair s/p shrapnel removal Status post hemorrhoidectomy Social History Smoking Status: Never smoker alcohol intake: never ROS ROS ED Constitutional Constitutional ED: Denies chills or fever(s) Eyes Eyes: Denies change in vision or diplopia ENT ENT ED: Denies rhinorrhea or sore throat Cardiovascular Cardiovascular: Denies chest pain or palpitations Respiratory/Chest Respiratory/Chest: Denies cough or dyspnea Gastrointestinal Gastrointestinal: Reports abdominal pain and nausea; Denies diarrhea or vomiting Genitourinary Genitourinary ED: Denies dysuria or hematuria Musculoskeletal Musculoskeletal: Reports back pain; Denies neck pain Integumentary Denies abscess or rash Neurologic Neurologic: Denies headache(s), paresthesias or weakness Psychiatric Psychiatric: Denies anxiety or suicidal thoughts EXAM Physical Exam Const Vital Signs: 12/10/21 13:35 Temperature 97.4 F L Temperature Source Temporal Pulse Rate 72 Respiratory Rate 16 Blood Pressure 155/90 H Blood Pressure Mean 111 Pulse Ox 99 Oxygen Delivery Method Room Air Positive well nourished and well developed General Appearance ED: well developed and NAD HEENT Reports moist mucous membranes normocephalic and atraumatic Eyes PERRL and EOMs intact bilaterally Neck full ROM and supple Resp normal respiratory effort and clear to auscultation bilaterally Cardio regular rate, regular rhythm and no murmurs GI non-distended GI Narrative: Very mild tenderness in right flank no guarding or rebound tenderness Auscultation: normoactive bowel sounds Palpation: soft Back/Spine General Back: CVA tenderness right and other FROM Extremity normal to inspection General Extremety ED: Negative for edema, pulses abnormal or tenderness General Extremity: Negative for edema or pulses abnormal Neuro oriented x3, CN's II-XII intact bilaterally and no sensory deficits noted Sensorium / Orientation: awake and alert Motor Exam: strength 5/5 throughout Skin no rashes or lesions noted and no wounds MDM MDM MDM Narrative Medical decision making narrative: Initially gave the patient a dose of subcutaneous morphine. He said that when he talked to his urologist over the phone, who is not on-call to contact today, he suggested that he would need a CT scan. Under these pretenses I performed a CT scan, it does not show any obstructing stones or any ureteral or renal stones on the right where he does have hydroureter and hydronephrosis. This is consistent with a stone that was recently passed. However, after the initial morphine, he was still in a lot of pain and requested more so I give him another dose, and he still was in a lot of pain. Therefore he had an IV placed, gave him a dose of Dilaudid, and ran some labs. He has a mild nonspecific leukocytosis, he has very mild increase in his creatinine compared to baseline, his urine does not show infection it is mostly blood for obvious reasons. However after this, he feels much better. I offered admission he declines and would prefer to go home. I agree that this could be due to a recently passed stone, there is no evidence of a rupture of ureter or the bladder, unknown if this is related to recent instrumentation/stenting, he had a stent removed yesterday. He understands reasons to return over the weekend. He is requesting a prescription for more pain medication just in case, which I provided him. Lab Data Attestation: I reviewed the patient's lab results. Labs: Laboratory Results - last 24 hr 12/10/21 12/10/21 12/10/21 14:20 15:22 15:22 WBC 13.0 H RBC 5.17 Hgb 16.8 H Hct 48.9 MCV 94.6 H MCH 32.5 H MCHC 34.4 RDW Std Deviation 43.1 RDW Coeff of Tommie 12.3 Plt Count 208 MPV 9.1 Immature Gran % (Auto) 0.500 Neut % (Auto) 72.8 H Lymph % (Auto) 9.4 L [place] % (Auto) 15.9 H Eos % (Auto) 0.8 Baso % (Auto) 0.6 Absolute Neuts (auto) 9.5 H Absolute Lymphs (auto) 1.22 Nucleated RBC % 0 Differential Comment SCANNED Platelet Estimate ADEQUATE RBC Morphology NORM C+C Sodium 133 L Potassium 4.4 Chloride 103 Carbon Dioxide 25.0 Anion Gap 5 BUN 26 H Creatinine 1.46 H Estim Creat Clear Calc 43.72 Est GFR (MDRD) Af Amer 60 Est GFR (MDRD) Non-Af 50 L BUN/Creatinine Ratio 17.8 Glucose 106 Calcium 11.0 H Urine Color Yellow Urine Clarity Sl. Cloudy Urine pH 6.0 Ur Specific [place] 1.025 Urine Protein 500 H Urine Glucose (UA) Normal Urine Ketones Negative Urine Occult Blood 250 H Urine Nitrite Negative Urine Bilirubin Negative Urine Urobilinogen Normal Ur Leukocyte Esterase 25 H Urine RBC 50-100 SEEN Urine WBC 0-5 SEEN Ur Squamous Epith Cells 0 SEEN Urine Bacteria Not Reportable Urine Mucus 0 SEEN Radiography Diagnostic Testing: Clinical Impression(s) from Imaging Studies Abdomen/Pelvis CT 12/10/21 13:51 IMPRESSION: Suspect recently passed right-sided stone with moderate hydronephrosis and ureteral dilatation but no obstructing stone. Electronically Signed: Sae Dunaway MD at 15:07 EDT , Discharge Plan Triage Chief Complaint: Flank Pain ED Provider: Joseph Crook Dx/Rx/DC Orders Clinical Impression: Renal colic on right side Instructions: ED Kidney Stone w/ Colic Prescriptions: New oxycodone-acetaminophen [oxycodone-acetaminophen] 1 TABLET tablet 1 tab PO Q4H PRN (Reason: Pain) 2 Days Qty: 12 RF: 0 No Action cholecalciferol (vitamin D3) 50 mcg (2,000 unit) capsule 50 mcg PO DAILY RF: 0 rosuvastatin 5 MG tablet 40 mg PO QHS RF: 0 clopidogrel 75 MG tablet 75 mg PO DAILY RF: 0 metoprolol tartrate 25 MG tablet 25 mg PO BID Qty: 0 RF: 0 ascorbic acid (vitamin C) [Vitamin C] 1,000 mg Tablet 1 g PO DAILY RF: 0 Probiotic 3 billion cell Tablet,Chewable 1 tab PO DAILY RF: 0 cephalexin 500 mg capsule 500 mg PO TID 7 Days Qty: 21 RF: 0 tamsulosin [Flomax] 0.4 mg capsule 0.4 mg PO DAILY 14 Days Qty: 14 RF: 0 oxycodone-acetaminophen [Percocet] 5-325 mg tablet 1 tab PO Q6H PRN (Reason: pain) 3 Days Qty: 12 RF: 0 oxycodone-acetaminophen 5-325 mg tablet 1 tab PO Q6H PRN (Reason: pain) 7 Days Qty: 14 RF: 0 ciprofloxacin HCl [Cipro] 500 mg tablet 500 mg PO BID Qty: 6 RF: 0 [facility] Provider: [facility] Referrals: Obdulio Smith MD [STAFF PHYSICIAN] - 3-5 Days if not improving [facility] [Primary Care Provider] - Disposition Disposition: Home, Self Care
--- NOTE | 2021-12-10 13:51 | CT_ITS ---
STUDY: CT ABDOMEN AND PELVIS WITHOUT CONTRAST REASON FOR EXAM: Male, 75 years old. right flank pain, recent lithotripsy RADIATION DOSAGE (If Supplied By Facility): CTDIvol = ( 12.23 ) mGy, DLP = ( 654.10 ) mGycm TECHNIQUE: Transaxial images were obtained from the dome of the diaphragm to the symphysis pubis without oral contrast, and without intravenous contrast. Sagittal and coronal images were reconstructed. Individualized dose optimization techniques were used for this CT. COMPARISON: None. FINDINGS: The visualized lung bases are unremarkable. The visualized portions of the heart are within normal limits. Normal liver. Normal gallbladder and extrahepatic biliary system. Normal spleen. Normal pancreas. Normal bilateral adrenal glands. Moderate right hydronephrosis and ureteral dilatation but no ureteral stone. Findings may be secondary to a recently passed stone. 3 mm nonobstructing stone in the midsection left kidney. Normal visualized stomach. Normal small intestine. There are multiple colonic diverticula consistent with diverticulosis. The appendix is visualized and appears normal. There is diffuse atherosclerotic calcification of the abdominal aorta, without a demonstrated aneurysm. Normal inferior vena cava. Normal retroperitoneum. Normal urinary bladder. There are prostatic calcifications. Normal abdominal wall. Normal osseous structures. CT/Abdomen/Pelvis without Cont IMPRESSION: Suspect recently passed right-sided stone with moderate hydronephrosis and ureteral dilatation but no obstructing stone. Electronically Signed: Sae Dunaway MD at 15:07 EDT ,
[2021-12-10] MEDS: morphine 10 MG/ML Syringe 4 MG SC (14:01)
[2021-12-10] MEDS: Ondansetron ODT 4 MG Tablet 8 MG PO (14:02)
[2021-12-10 14:26] LABS: Mucous, Urine 0 SEEN /hpf (<or=2+); Squamous Epithelial Cells - UA 0 SEEN /hpf (0-5)
[2021-12-10 14:30] LABS: Color, Urine Yellow (Yellow); Glucose, Dipstick Normal (Normal); Ketone-Dipstick Negative (Negative); Leukocyte Esterase-Dipstick 25 /ul (Negative); Nitrite-Dipstick Negative (Negative); Occult Blood-Urine 250 /ul (Negative); Protein-Dipstick 500 mg/dl (Negative); Specific Gravity, Urine 1.025 (1.002-1.030); Urine Bilirubin Dipstick Negative (Negative); Urine Clarity Sl. Cloudy (Clear); Urine Urobilinogen Normal (Normal)
[2021-12-10 14:41] LABS: Red Blood Cells-Urine 50-100 SEEN /hpf (0-5); White Blood Cells 0-5 SEEN /hpf (0-5)
[2021-12-10] MEDS: Morphine 4 MG/ML Syringe SC (14:46)
[2021-12-10] MEDS: oxyCODONE 5 MG Tablet PO (14:47)
[2021-12-10] MEDS: HYDROmorphone 1 MG/ML Syringe IV (15:21)
[2021-12-10 15:30] LABS: Absolute Lymphocyte Count 1.22 X10^3/uL (0.83-4.51); Absolute Neutrophil Count 9.5 X10^3/uL (2.0-7.7); Basophil# 0.08 X10^3/uL; Basophil% 0.6 % (0-1); Eosinophil# 0.11 X10^3/uL; Eosinophils% 0.8 % (0-5); Hematocrit 48.9 % (40-54); Hemoglobin 16.8 g/dL (13.0-16.5); Lymphocyte # 1.22 X10^3/ul (0.83-4.51); Lymphocyte % 9.4 % (19-41); Mean Corp Hgb Conc 34.4 g/dL (32-36); Mean Corpuscular Hgb 32.5 pg (27.0-32.0); Mean Corpuscular Volume 94.6 fL (80-94); Mean Platelet Vol. 9.1 fl (6.2-12.0); Monocyte# 2.07 X10^3/uL; Monocyte% 15.9 % (0-10); NRBC Flagged by Analyzer 0 % (0-5); Neutrophil # 9.48 X10^3/uL (2.7-7.7); Neutrophil % 72.8 % (47-70); POSITIVE DIFFERENTIAL YES; Platelet Count 208 K/mm3 (150-450); RBC Distribution Width CV 12.3 % (11.6-14.6); RBC Distribution Width SD 43.1 fl (35.1-43.9); Red Blood Count 5.17 M/mm3 (4.6-6.2)
[2021-12-10 15:36] LABS: Differential Indicated SCAN CRITERIA MET
[2021-12-10 15:46] LABS: Anion Gap 5 (5-15); BUN 26 mg/dL (7-18); BUN/Creat Ratio 17.8 RATIO (10-20); Chloride 103 mmol/L (98-107); Creatinine, Serum 1.46 mg/dL (0.70-1.30); EST Glomerular Filtration Rate 50 mL/min (>60); Est Glom Filt Rate - Afr Amer 60 mL/min (>60); Estimated Creatinine Clearance 43.72 ml/min; Glucose 106 mg/dL (74-106); Potassium 4.4 mmol/L (3.5-5.1); Sodium Level 133 mmol/L (136-145)
[2021-12-10 16:45] LABS: Differential Comment SCANNED; Platelet Estimate ADEQUATE (ADEQ); Red Cell Morphology NORM C+C NORMAL (NORM C&C)
[2021-12-10 17:11] VITALS: BP 128/61; PULSE 68
[2021-12-12 13:22] LABS: Pathologist Review Reviewed
== END 2021-12-10 17:11 | disposition home or self-care (01) ==
PROVIDERS: Emergency Provider Emergency Medicine; Visit Provider Emergency Medicine
DX: N13.2 Hydronephrosis with renal and ureteral calculous obstruction (principal); Z86.718 Personal history of other venous thrombosis and embolism; I25.10 Atherosclerotic heart disease of native coronary artery without angina pectoris; E78.5 Hyperlipidemia, unspecified; Z87.442 Personal history of urinary calculi; G25.81 Restless legs syndrome; G47.30 Sleep apnea, unspecified; Z79.899 Other long term (current) drug therapy
CPT/HCPCS: 74176; 80048; 81001; 85025; 96372; 96374; 99284; A4216

== ENCOUNTER 2022-03-03 08:54 | Outpatient (CLI) | payer OTHER, SELFPAY ==
--- NOTE | 2022-03-03 08:56 | VDLE_ITS ---
Reason For Study: HX OF DVT (12/12/2019) RIGHT LEFT GSV is normal. GSV is normal. CFV is compressible, spontaneous, phasic, CFV is compressible, spontaneous, phasic, competent and demonstrates normal competent, and demonstrates normal augmentation. augmentation. FV is compressible, spontaneous, phasic, FV is compressible, spontaneous, phasic, competent and demonstrates normal competent and demonstrates normal augmentation. augmentation. POP V is compressible, spontaneous, phasic, POP V is compressible, spontaneous, phasic, competent and demonstrates normal competent and demonstrates normal augmentation. augmentation. T/P Trunk is compressible. T/P Trunk is compressible. PTV is compressible. PTV is compressible. RT PerV is compressible. LT PerV is compressible. Procedure This is a venous duplex using B-mode, color flow and spectral Doppler. Exam performed in department. The exam was diagnostic. A preliminary report was called and/or faxed to Dr. Monique @ [phone] @ 9:30 am. VL/Venous Duplex US - [place] Extrem Interpretation Summary No evidence for acute deep venous thrombosis bilateral lower extremities with p atent and compressible bilateral great saphenous veins. Ordering Physician: Drake Monique Referring Physician: [facility] Performed By: Denise Morales, PABLO, RVT
== END 2022-03-03 23:59 | disposition home or self-care (01) ==
LOC: CVS 08:55
PROVIDERS: Referring Provider Internal Medicine Medical Oncology; Visit Provider Internal Medicine Medical Oncology
DX: Z86.718 Personal history of other venous thrombosis and embolism (principal)
CPT/HCPCS: 93970

== ENCOUNTER 2023-09-24 11:00 | Outpatient (CLI) | payer OTHER, SELFPAY | END 2023-09-24 23:59 | disposition home or self-care (01) | LOC: LABSPEC 10-05 14:56 | PROVIDERS: Visit Provider Internal Medicine Endocrinology, Diabetes & Metabolism | DX: E21.0 Primary hyperparathyroidism (principal); N20.0 Calculus of kidney ==

== ENCOUNTER → 2023-09-26 | Outpatient (CLI) | payer OTHER, MEDICARE, SELFPAY ==
[2023-09-26 17:29] LABS: Absolute Lymphocyte Count 1.36 X10^3/uL (0.83-4.51); Absolute Neutrophil Count 4.8 X10^3/uL (2.0-7.7); Basophil# 0.06 X10^3/uL; Basophil% 0.8 % (0-1); Eosinophils% 2.7 % (0-5); Hemoglobin 15.6 g/dL (13.0-16.5); Lymphocyte # 1.36 X10^3/ul (0.83-4.51); Lymphocyte % 18.6 % (19-41); Mean Corp Hgb Conc 33.2 g/dL (32-36); Mean Corpuscular Hgb 31.3 pg (27.0-32.0); Mean Corpuscular Volume 94.2 fL (80-94); Mean Platelet Vol. 9.6 fl (6.2-12.0); Monocyte# 0.92 X10^3/uL; Monocyte% 12.6 % (0-10); NRBC Flagged by Analyzer 0 % (0-5); Neutrophil # 4.75 X10^3/uL (2.7-7.7); Neutrophil % 64.8 % (47-70); Platelet Count 194 K/mm3 (150-450); RBC Distribution Width CV 12.6 % (11.6-14.6); RBC Distribution Width SD 43.4 fl (35.1-43.9); Red Blood Count 4.99 M/mm3 (4.6-6.2); White Blood Count 7.3 K/mm3 (4.4-11.0)
[2023-09-26 17:43] LABS: Vitamin D,25 Hydroxy 28.5 ng/mL
[2023-09-26 17:49] LABS: ALB/GLOB Ratio 1.2 RATIO (0.9-2.4); AST(SGOT) 22 U/L (15-37); Alanine Aminotransfer ALT/SGPT 40 U/L (16-61); Albumin, Serum 3.7 g/dL (3.2-5.0); Alkaline Phosphatase 60 U/L (45-117); Anion Gap 2 (5-15); BUN 19 mg/dL (7-18); BUN/Creat Ratio 16.7 RATIO (10-20); Calcium,Total 11.2 mg/dL (8.5-10.1); Chloride 110 mmol/L (98-107); Cholesterol 137 mg/dL (200); Creatinine, Serum 1.14 mg/dL (0.70-1.30); EST Glomerular Filtration Rate 66 mL/min (>60); Est Glom Filt Rate - Afr Amer 80 mL/min (>60); Glucose 87 mg/dL (74-106); High Density Lipoprotein 47 mg/dL; Potassium 4.5 mmol/L (3.5-5.1); Protein, Total 6.7 g/dL (6.4-8.2); Sodium Level 140 mmol/L (136-145); Thyroid Stim Hormone (TSH) 2.98 uIU/mL (0.358-3.74); Triglycerides 182 mg/dL; Very Low Density Lipoprotein 36 mg/dL (5-40)
== END | disposition home or self-care (01) ==
LOC: POLAB3 16:07
PROVIDERS: PCP Family Medicine Geriatric Medicine; Visit Provider Family Medicine Geriatric Medicine
DX: R53.83 Other fatigue (principal); E78.5 Hyperlipidemia, unspecified; E55.9 Vitamin D deficiency, unspecified
CPT/HCPCS: 36415; 80053; 80061; 82306; 84443; 85025

== ENCOUNTER → 2023-10-25 | Outpatient (CLI) | payer MEDICARE, SELFPAY ==
--- NOTE | 2023-10-25 14:27 | BD_ITS ---
STUDY: DUAL ENERGY X-RAY ABSORPTIOMETRY / DXA REASON FOR EXAM: Male, 77 years old. x -- hyperparathyroidism TECHNIQUE: Bone Mineral Density (BMD) measurements of lumbar spine and bilateral hips were obtained. COMPARISON: Comparison is made with prior study of December 04, 2017. FINDINGS: Lumbar Spine (L1-L4): g/cm2 (1.127) / T-score (0.3) / Z-score (1.4) Findings are suggestive of normal bone density with a low fracture risk. Left Femur Total: g/cm2 (0.881) / T-score (-1.0) / Z-score (-0.1) Left Femoral Neck: g/cm2 (0.590) / T-score (-2.5) / Z-score (-1.1) Right Femur Total: g/cm2 (0.901) / T-score (-0.9) / Z-score (0.1) Right Femoral Neck: g/cm2 (0.579) / T-score (-2.6) / Z-score (-1.1) The T-Scores on the most recent prior examination were: Lumbar Spine (L1-L4): There has been improvement of bone density since the previous examination. Left Femur Total: which represents an improvement of 2.7%. Right Femur Total: which represents an improvement of 12.1%. BD/Dexa Bone Density Study IMPRESSION: The patient is considered osteoporotic as outlined below according to World [place] Organization (WHO) criteria with a high fracture risk. There has been improvement of bone density since the previous examination. Reference Information: The T-score is the number of standard deviations above or below the standard which is normal for young adults at their peak bone mineral density. The World Health Organization (WHO) interprets the T-scores as follows: Above -1 Normal bone density Between -1 and -2.5 Osteopenia Equal to / or below -2.5 Osteoporosis As a practical clinical guideline, osteopenia may be graded as follows: Mild -1 through -1.5 Moderate -1.6 through -2.0 Severe -2.1 through -2.4 The Z-score is the number of standard deviations above or below age-matched controls. A Z-score of less than -1.5 would be considered abnormal. References: 1. NIH Osteoporosis and Related Bone Diseases www osteo.org 2. International Society for Clinical Densitometry www iscd.org 3. National Osteoporosis Foundation www nof.org Electronically Signed: Demetri Ayers MD at 15:02 EDT ,
== END | disposition home or self-care (01) ==
LOC: OPBD 14:27
PROVIDERS: PCP Family Medicine Geriatric Medicine; Referring Provider Internal Medicine Endocrinology, Diabetes & Metabolism; Visit Provider Internal Medicine Endocrinology, Diabetes & Metabolism
DX: E21.0 Primary hyperparathyroidism (principal); N20.0 Calculus of kidney
CPT/HCPCS: 77080

== ENCOUNTER 2023-11-14 13:50 | Outpatient (CLI) | payer MEDICARE, SELFPAY ==
[2023-11-14 13:56] VITALS: BP 161/63; PULSE 77; RESP 16; TEMP 35.6; O2SAT 98; BMI 28.8
[2023-11-14] MEDS: 0.9% NaCl Peripheral Flush Adult/Peds IV (14:06)
[2023-11-14] MEDS: Zoledronic Acid 5 MG 100 ML 300 MG IV (14:10)
[2023-11-14 14:35] VITALS: BP 145/69; PULSE 77
== END 2023-11-14 13:51 | disposition home or self-care (01) ==
LOC: MEDOUTP 13:50
PROVIDERS: PCP Family Medicine Geriatric Medicine; Referring Provider Internal Medicine Endocrinology, Diabetes & Metabolism; Visit Provider Internal Medicine Endocrinology, Diabetes & Metabolism
DX: M81.0 Age-related osteoporosis without current pathological fracture (principal)
CPT/HCPCS: 96365; A4216; J3489

== ENCOUNTER → 2024-05-29 | Outpatient (CLI) | payer OTHER, SELFPAY ==
--- NOTE | 2024-05-29 12:58 | US_ITS ---
STUDY: THYROID ULTRASOUND REASON FOR EXAM: Male, 78 years old. Localization of parathyroid adenoma and anatomy TECHNIQUE: Ultrasound evaluation of the thyroid was performed with real-time and static mahan-scale imaging. COMPARISON: None. FINDINGS: RIGHT LOBE: The right lobe of the thyroid gland measures 4.3 x 1.7 x 1.8 cm. There is a heterogeneous echotexture. There are multiple anechoic cysts. The dominant anechoic cyst located in the medial aspect of the right upper thyroid lobe is septated. This measures 0.79 x 0.68 x 0.76 cm. The second cyst in the lateral aspect of the mid thyroid lobe measures 0.85 x 0.37 x 0.70 cm. LEFT LOBE: The left lobe of the thyroid gland measures 4.3 x 1.3 x 1.6 cm. There is a heterogeneous echotexture. There are multiple anechoic cysts in the left thyroid lobe. The dominant complex nodule is mixed solid and cystic located in the medial and posterior left upper thyroid lobe measures 0.51 x 0.34 x 0.45 cm. The second complex nodule in the medial and posterior mid thyroid lobe measures 0.49 x 0.34 x 0.48 cm. ISTHMUS: The isthmus measures 0.36 cm. . US/Thyroid IMPRESSION: 1. Multiple anechoic cysts in both thyroid lobes. TI-RADS points: 3. TI-RADS category: TR3. This nodule is mildly suspicious but no FNA or follow-up is necessary given the small size of this nodule. 2. Dominant anechoic cyst in the right upper thyroid lobe is septated. This measures 0.79 x 0.68 x 0.76 cm. This nodule is cystic or nearly completely cystic. TI-RADS points: 0. TI-RADS category: TR1. This nodule is benign and no FNA or follow-up is necessary. 3. Second dominant cyst in the lateral aspect of the right mid thyroid lobe measures 0.85 x 0.37 x 0.70 cm. TI-RADS points: 0. TI-RADS category: TR1. This nodule is benign and no FNA or follow-up is necessary. 4. Dominant complex cyst in the right posterior medial upper thyroid lobe measures 0.51 x 0.34 x 0.45 cm. 5. Complex nodule in the posterior medial of the left mid thyroid lobe measures 0.49 x 0.34 x 0.48 cm. TI-RADS points: 3. TI-RADS category: TR3. This nodule is mildly suspicious but no FNA or follow-up is necessary given the small size of this nodule. COMMENT: Four-phase CTA of the neck using the parathyroid protocol is more helpful in the localization of parathyroid adenoma. Electronically Signed: Jona Espino MD at 10:14 EDT ,
== END | disposition home or self-care (01) ==
PROVIDERS: PCP Family Medicine Geriatric Medicine; Referring Provider Internal Medicine Endocrinology, Diabetes & Metabolism; Visit Provider Internal Medicine Endocrinology, Diabetes & Metabolism
DX: E21.0 Primary hyperparathyroidism (principal)
CPT/HCPCS: 76536

== ENCOUNTER → 2024-06-13 | Outpatient (CLI) | payer MEDICARE, SELFPAY | END | disposition home or self-care (01) | LOC: POLAB3 10:55 | PROVIDERS: PCP Family Medicine Geriatric Medicine; Visit Provider Family Medicine Geriatric Medicine | DX: R68.83 Chills (without fever) (principal) | CPT/HCPCS: 36415; 87631 ==

== ENCOUNTER → 2024-07-17 | Outpatient (CLI) | payer OTHER, SELFPAY ==
--- NOTE | 2024-07-17 08:58 | NM_ITS ---
CLINICAL: 78-year-old male with clinical hyperparathyroidism. 99m Tc SESTAMIBI DUAL PHASE PLANAR and SPECT-CT PARATHYROID SCINTIGRAPHY COMPARISON: Thyroid ultrasound report 05/25/2024 FINDINGS: Following the intravenous administration of 27.0 mCi of 99m Tc sestamibi, planar image acquisitions of the anterior neck at 15 minutes and 3.0 hours post radiopharmaceutical provision and SPECT-CT reconstructions obtained at 3.0 reveal: 1. Immediate static blood pool acquisitions demonstrate distribution of the radiopharmaceutical in the right and left thyroid colloid most accentuated in the inferior pole of the right lobe. 2. Delayed planar images depict near complete washout of the radiopharmaceutical from the left lobe and superior pole right lobe thyroid parenchyma. There is persistent visualization of uptake in the inferior pole of the right lobe. Emission computed tomographic reconstructions of the anterior neck reveal confirmation of the planar projection findings. NM/Parathyroid SPECT w/ CONCUR CT IMPRESSION: 1. ABNORMAL 99m Tc SESTAMIBI [id number] PARATHYROID IMAGING DUAL PHASE EXAMINATION. 2. 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 Electronically Signed: Sae Anderson DO at 10:39 EST ,
== END | disposition home or self-care (01) ==
PROVIDERS: PCP Family Medicine Geriatric Medicine; Referring Provider Surgery; Visit Provider Surgery
DX: E21.3 Hyperparathyroidism, unspecified (principal)
CPT/HCPCS: 78072; A9500

== ENCOUNTER 2024-08-22 06:01 | Day surgery (SDC) | payer OTHER, SELFPAY ==
--- NOTE | 2024-08-14 14:34 | PAT.ANE_ITS ---
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 When Was Last Pacemaker Check QUESTION #4 FULL TEXT: You/Your Family Experience fever (hyperthermia) with Anesthesia Last Oral Intake Last Oral intake: Last Oral Intake NPO since Meds taken in AM with sips of water? Meds patient instructed to take am of surgery PONV PONV - angle furnaceman: PONV - angle furnaceman Female No 08/14/24 13:38 HX of Motion Sickness No 08/14/24 13:38 HX of N/V After Surgery No 08/14/24 13:38 Non-Smoker Yes 08/14/24 13:38 Duration of Surgery greater No 08/14/24 13:38 than 60 minutes Number of Risk Factors 1 08/14/24 13:38 PONV Score Low Risk 08/14/24 13:38 Height & Weight Height & Weight: Anesthesia: Height & Weight Height 5 ft 9 in 08/01/24 08:11 Respiratory Assessment Respiratory Assessment - angle furnaceman: Respiratory Tract Infection Hx - angle furnaceman Hx Respiratory Tract Infection No 08/14/24 13:38 STOP Sleep Apnea STOP Sleep Apnea - angle furnaceman: STOP Sleep Apnea - angle furnaceman Hx Hypertension Yes 08/14/24 13:38 Hx Sleep Apnea Yes 08/14/24 13:38 CPAP Yes 08/14/24 13:38 BIPAP No 08/14/24 13:38 Do you snore loudly (louder than talking or can be heard Do you often feel tired/ fatigued/ sleepy during daytime? Has anyone observed you stop breathing during sleep? STOP Results Positive 08/14/24 13:38 QUESTION #5 FULL TEXT : Do you snore loudly (louder than talking or can be heard through closed doors)? 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 Specify any problems Hx of Preganancy in last 3 N/A 08/14/24 13:38 Months Nurse Filling Out Transfusion VLEHMAN 08/14/24 13:38 & Questions: Date: 08/14/24 08/14/24 13:38 Time: 13:45 08/14/24 13:38 Patient unable to answer at this time (ie. confused, unrespo /Reproduction History /Reproductive History - angle furnaceman: /Reproductive Hx- angle furnaceman Hx Now Gestational Age (in weeks): EDC: Hx Hx Para Hx Section SAB No 12/06/21 14:57 PFSH Medical History (Updated 08/14/24 @ 13:45 by Edilia Galloway) Wears hearing aid Wears dentures Wears glasses High cholesterol Non-smoker CPAP (continuous positive airway pressure) dependence Sleep apnea Cardiology follow-up encounter COVID-19 (~09/2022) MARLYS on CPAP Vitamin D deficiency Atherosclerosis of coronary artery of [place] heart without angina pectoris Primary hyperparathyroidism History of deep vein thrombosis of lower extremity Kidney stones Condyloma acuminata Hyperlipidemia Hyperparathyroidism RLS (restless legs syndrome) Sleep apnea Dog bite DVT (deep venous thrombosis) Home Medications ?Medication ?Instructions ?Recorded ?Last Taken ?Type metoprolol tartrate 25 mg tablet 25 mg PO BID ##0 04/19/15 04/16/15 Rx aspirin 81 mg tablet,delayed 81 mg PO DAILY 09/03/23 Unknown History release rosuvastatin 40 mg tablet 40 mg PO DAILY 09/03/23 Unknown History ascorbic acid (vitamin C) 500 mg 500 mg PO DAILY 12/11/23 Unknown History capsule amlodipine 5 mg tablet 5 mg PO DAILY 12/27/23 Unknown History cholecalciferol (vitamin D3) 25 50 mcg PO DAILY 05/13/24 Unknown History mcg (1,000 unit) tablet omega 9-uco-yya-fish oil 1,200 mg 1 cap PO BID 05/13/24 08/11/24 History (144 mg-216 mg) capsule (Fish Oil) multivitamin (Daily Multi-Vitamin 1 tab PO DAILY 08/14/24 Unknown History tablet) Allergy/AdvReac Type Severity Reaction Status Date / Time No Known Allergies Allergy Verified 08/01/24 08:11 Family History Mother Breast cancer Alzheimer disease Sister Breast cancer Myocardial infarction Father Myocardial infarction Alcohol abuse Surgical History History of colonoscopy (06/02/20) History of coronary artery stent placement (04/22/03) s/p shrapnel removal S/P hernia repair Status post hemorrhoidectomy Social History Smoking Status: Never smoker alcohol intake: never substance use type: does not use caffeine: Yes Type: coffee Number of servings: 2 Audit: Pertinent Findings Pertinent Findings EKG Perinent findings: 12/27/2023 sinus rhythm 78 bpm nonspecific QRS 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
--- NOTE | 2024-08-15 07:43 | EKG12_ITS ---
Test Reason : PREOP Blood Pressure : */* mmHG Vent. 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
[2024-08-15 08:09] LABS: Hematocrit 50.6 % (40-54); Hemoglobin 16.6 g/dL (13.0-16.5); Mean Corp Hgb Conc 32.8 g/dL (32-36); Mean Corpuscular Hgb 31.6 pg (27.0-32.0); Mean Corpuscular Volume 96.4 fL (80-94); Mean Platelet Vol. 9.3 fl (6.2-12.0); Platelet Count 179 K/mm3 (150-450); RBC Distribution Width CV 12.8 % (11.6-14.6); RBC Distribution Width SD 45.4 fl (35.1-43.9); Red Blood Count 5.25 M/mm3 (4.6-6.2); White Blood Count 5.8 K/mm3 (4.4-11.0)
[2024-08-15 08:20] LABS: Anion Gap 2 (5-15); BUN 20 mg/dL (7-18); BUN/Creat Ratio 15.5 RATIO (10-20); Calcium,Total 11.1 mg/dL (8.5-10.1); Chloride 110 mmol/L (98-107); Creatinine, Serum 1.29 mg/dL (0.70-1.30); EST Glomerular Filtration Rate 57 mL/min (>60); Est Glom Filt Rate - Afr Amer 69 mL/min (>60); Glucose 134 mg/dL (74-106); Potassium 4.6 mmol/L (3.5-5.1); Sodium Level 139 mmol/L (136-145)
[2024-08-15 08:42] LABS: PTHIN 149.1 pg/mL (18.4-80.1)
[2024-08-22] VITALS (11 sets, daily range): BP systolic 131–150; BP diastolic 67–88; PULSE 64–107; RESP 16–22; TEMP 36.6–37; O2SAT 94–98; BMI 29.0
[2024-08-22] MEDS: 0.9% Normal Saline (1000mL) 1,000 ML 15 ML IV (06:39)
--- NOTE | 2024-08-22 06:48 | HP.PCM_ITS ---
History and Physical Date of Admission: 08/22/24 Date of Service: 08/01/24 MR#: [id number] Acct: [id number] Name: YAHAIRA MORFIN Rep #: [id number] : 1945 Provider: Dr. Kamaljit Koehler MD Age/Sex: 78/M Location: [facility] Status: Signed Intake Vital Signs 06/10/2412:58 08/01/2408:11 Height 5 ft 9 in 5 ft 9 in Weight: 195 lb 193 lb BMI 28.8 28.5 BP 143/74 H 162/69 H Blood Pressure Location Rt brachial Rt brachial Position Sitting Sitting Respiration 18 16 Intake Visit Reasons: DISCUSS SURGERY Chief Complaint: discuss results and surgery Mainframe Analyst Required: No Is patient in pain?: No Allergies No Known Allergies Allergy (Verified 08/01/24 08:11) Medications ?Medication ?Instructions ?Recorded ?Confirmed ?Type metoprolol tartrate 25 mg tablet 25 mg PO BID ##0 04/19/15 08/01/24 Rx aspirin 81 mg tablet,delayed 81 mg PO DAILY 09/03/23 08/01/24 History release rosuvastatin 40 mg tablet 40 mg PO DAILY 09/03/23 08/01/24 History zoledronic acid 5 mg/100 mL in 1 ea .Route ONCE #100 mL 11/05/23 08/01/24 Rx mannitol 5 %-water intravenous piggybck ascorbic acid (vitamin C) 500 mg mg PO 12/11/23 08/01/24 History capsule amlodipine 5 mg tablet 5 mg PO DAILY 12/27/23 08/01/24 History cholecalciferol (vitamin D3) 25 50 mcg PO DAILY 05/13/24 08/01/24 History mcg (1,000 unit) tablet omega 1-dzo-hau-fish oil 1,200 mg cap PO BID 05/13/24 08/01/24 History (144 mg-216 mg) capsule (Fish Oil) Have you fallen in the past year?: No PFSH Medical History COVID-19 (~09/2022) MARLYS on CPAP Vitamin D deficiency Atherosclerosis of coronary artery of [place] heart without angina pectoris Primary hyperparathyroidism History of deep vein thrombosis of lower extremity Kidney stones Condyloma acuminata Hyperlipidemia Hyperparathyroidism RLS (restless legs syndrome) Sleep apnea Dog bite DVT (deep venous thrombosis) Surgical History History of colonoscopy (06/02/20) History of coronary artery stent placement (04/22/03) s/p shrapnel removal S/P hernia repair Status post hemorrhoidectomy Family History Mother Breast cancer Alzheimer diseaseSister Breast cancer Myocardial infarctionFather Myocardial infarction Alcohol abuse Social History Smoking Status: Never smoker alcohol intake: never substance use type: does not use caffeine: Yes Type: coffee Number of servings: 2 HPI HPI HPI: Patient is a 78-year-old male who presents for hyperparathyroidism. Patient presents today with his . He initially denies any significant health updates but later in the encounter, offhandedly, mentions that he was diagnosed with kidney stones a couple weeks ago. He shares that they are presently asymptomatic. In the interim since his last visit Mr. Morfin completed a SPECT- CT with sestamibi 07/17/2024 with the following result: 1. ABNORMAL 99m Tc SESTAMIBI [id number] PARATHYROID IMAGING DUAL PHASE EXAMINATION. 2. 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 Below is recapitulated from patient's consultation visit that was made 06/10/2024: Patient is a 78-year-old male who presents for hyperparathyroidism. They are referred from Dr. Jared Padilla. Patient has a history of osteoporosis with a T- score of -2.6 from study performed 10/25/2023. Patient has no history of pathologic fractures (notes a remote left broken arm 40 to 50 years ago). Patient has a history of kidney stones over several episodes. Patient has a history of frequent dental caries or chipped teeth and shares that he had the remainder of his teeth removed 3 years ago and now proceeds with 2 plates. Patient has no history of brittle fingernails. Patient has no history of GERD. Patient has a history of hypertension. Additional symptoms include: Possible history of fatigue (patient denies it but patient's states she finds him falling asleep in his chair), negatively: cribbing setter of arthritis or myalgias, no muscle weakness, and no memory or concentration difficulty/and positively: Occasional constipation as well as frequent urination. Patient has a history of prior radiation exposure which she states was related to his time in the [employer] business but insist that appropriate PPE was always used per [employer]SHA. Patient has no family history of other endocrinopathies Patient does not have a diet high in dairy?citing limited intake of cheese and ice cream. Patient's current labs are calcium: Calcium is 12.1 mg/dL 05/02/2024 range of 9.6-12.1, Vitamin D: 38 ng/mL 05/02/2024, PTH: 131.2 pg/mL 05/02/2024 Current medications include: Vitamin D supplementation with 1000 international units twice daily. Imaging has been done thyroid ultrasound 05/29/2024 and showed evidence of multiple subcentimeter cysts and cystic nodules but no parathyroid candidates. 24-hour urine studies were completed and patient's urinary calcium was 532 (09/24/2023). ROS General General: No weight change, appetite, fatigue, colon cancer, breast cancer or weakness HEENT HEENT: No difficulty swallowing, eye injury, eye surgery, swollen glands or hoarseness Endo Endocrine: Yes thyroid disease; No diabetes mellitus, thyroid cancer, Hair loss, heat intolerance or cold intolerance Skin Skin: No rash or changing moles Breast Breast: No left breast lump, right breast lump, nipple discharge, breast pain, abnormal mammogram, abnormal US or breast enlargement Musc Musculoskeletal: No back problems, arthritis, rheumatoid arthritis, gout or joint pain Cardio Cardiovascular: Yes heart attack and heart stent; No murmur, pacemaker, heart disease, atrial fibrillation, high blood pressure, palpitations, shortness of breat with exertion or chest pain Psych Psychiatric: No depression, anxiety or hearing voices Resp Respiratory: No shortness of breath, Yes sleep apnea, No cough, No COPD, No asthma, No emphysema and No wheezing Gastro Gastrointestinal: No abdominal pain, No nausea or vomiting, No diarrhea, No constipation, No blood in stool, No acid reflux, Yes hemorrhoids, No ulcers, No gallbladder problem and No black,tarry stools Luis Hematologic: No blood thinners, No blood disorders, No bleeding, No anemia and No blood clots Neuro Neurologic: No system reviewed and no additional complaints, except as documented, No as per HPI, No abnormal gait, No abnormal hearing, No abnormal movements, No abnormal speech, No behavioral changes, No burning sensations, No confusion, No convulsions, No disequilibrium, No dizziness, No localized weakness, No frequent falls, No headache(s), No lack of coordination, No loss of vision, No memory loss, No numbness, No other visual disturbances, No radicular pain, No restless legs, No sensory deficit, No syncope, No tingling, No tremor(s), No weakness and No other Exam Const General: cooperative, comfortable and no acute distress Orientation: alert, awake and oriented x3 Neck Other: Slender, no masses, no lymphadenopathy Assessment and Plan Assessment and Plan (1) Primary hyperparathyroidism: Status: Chronic Comment: Patient is 78-year-old male who presents for surgical consultation related to a diagnosis of primary hyperparathyroidism. Patient presented today with his and, jointly, they stated they were unclear on the diagnosis so I spent an extensive amount of time discussing not only the biochemical diagnosis of primary hyperparathyroidism, but then also the surgical indications generally?s peaking and those that were patient?specific. I also went into the explanation for parathyroid localization as it pertains to the excepted etiologies for primary hyperparathyroidism. Hand drawings were made to illustrate relevant points as I proceeded. All questions were answered as we proceeded as well. I communicated that I was both convinced of patient's diagnosis of primary hyperparathyroidism as well as his surgical indications?namely history of kidney stones, his elevated calcium level, his osteoporosis, and his elevated urinary calcium level (above 400). I added that his history of coronary artery disease status post coronary stenting is to be considered as well. 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 Unfortunately this was not called by radiology and I shared that his thyroid parenchyma containing cysts/small nodules is likely to decrease the sensitivity of sestamibi. However, I did recommend proceeding with this study and hoping for concordance with my study. At the conclusion of this study I would like to sit down with patient and his for another consultation visit to discuss his candidacy for surgical management of this disease process. Patient and his repeatedly ask questions that I had addressed before and they confessed that they would lik balaji only remember about a third of what was spoken, but I tried to entertain their questions as they arose. Update 08/01/2024: Patient presents for follow-up after his initial consultation visit June. Fortunately, sestamibi imaging was abnormal and there is apparent co-localization with my ultrasound exam which suggested a lesion of the right inferior position. I discussed the significance of this localization as well as reiterated my belief that Mr. Morfin not only possesses surgical indicators but makes a acceptable surgical candidate. I then went on to describe the procedure for a minimally invasive parathyroidectomy?complete with PTH monitoring. Hand drawings were made to illustrate both relevant anatomy and concepts. Not only did Mr. Morfin appear to understand but he was able to repeat insightfully back to me the critical information. I specifically discussed the risks of hypoparathyroidism and recurrent laryngeal nerve injury in addition to possibility of bleeding or infection with any surgery. I stated that the most likely outcome is that he would require a transient period of supplemental calcium. Upon hearing all of this information it is Mr. Tovar's preference to be underway with surgery as soon as possible. I am asking him to hold his fish oil preoperatively to minimize his perioperative bleeding risk. Plan: ? Focused parathyroidectomy with intraoperative nerve and PTH monitoring. Outpatient disposition planned ? Patient asked to hold fish oil 5 days preop I have examined the patient and the H&P has been reviewed. There are no clinical changes since date of exam. Brief overview of the procedure was again provided to Mr. Morfin and his family. A few lingering questions were answered but otherwise stated to readiness to proceed as previously described. Will thus await his preoperative PTH level and then proceed to the operating room for planned parathyroidectomy with intraoperative nerve monitoring.
--- NOTE | 2024-08-22 07:06 | PRE.ANES_ITS ---
ASA Classification* ASA Classification ASA Classification: 2 Assessment & Plan Anesthesia* Anesthesia Assessment Anesthesia Assessment: Discussed sedation and/or anesthesia options, risks, benefits, and alternatives with patient/parents/legal guardian/POA. Questions invited. The patient/parents/legal guardian/POA seems to understand and agrees to proceed with anesthesia plan. Reviewed the physical assessment, medical history, allergy history and patient home medications list prior to surgery/procedure/anesthetic and documented any changes. Performed airway and anesthesia risk assessments. Anesthesia Type Anesthesia Type: General History Source History Obtained from:: Patient and Chart Anesthesia Focused Assessment* Temperature: 97.8 F Pulse Rate: 64 Blood Pressure: 136/67 Respiratory Rate: 18 Pulse Ox: 97 Oxygen Delivery Method: Room Air Airway Assessment Mouth opens: >3 cm Mallampati Score: IV Teeth Condition: Dentures (Patient has full upper and lower dentures. They are out.) Neck Range of motion (ROM): Limited ROM (Slight decreased extension) Focused Labs Anesthesia Preop lab: CBC WBC 5.8 K/mm3 (4.4-11.0) 08/15/24 07:43 RBC 5.25 M/mm3 (4.6-6.2) 08/15/24 07:43 Hgb 16.6 g/dL (13.0-16.5) H 08/15/24 07:43 Hct 50.6 % (40-54) 08/15/24 07:43 Plt Count 179 K/mm3 (150-450) 08/15/24 07:43 CHEMISTRY Potassium 4.6 mmol/L (3.5-5.1) 08/15/24 07:43 Sodium 139 mmol/L (136-145) 08/15/24 07:43 BUN 20 mg/dL (7-18) H 08/15/24 07:43 Creatinine 1.29 mg/dL (0.70-1.30) 08/15/24 07:43 Glucose 134 mg/dL (74-106) H 08/15/24 07:43 TSH 2.98 uIU/mL (0.358-3.74) 09/26/23 16:08 COAG PT 13.2 SECONDS (11.7-14.9) 02/09/22 11:50 Pre-Assessment Diagnosis/Proposed Procedure Planned Operative Procedure(s): PARATHYROIDECTOMY WITH INTROPERATIVE NERVE MONITORING AND PARATHYROID HORMONE Anesthesia History 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 When Was Last Pacemaker Check QUESTION #4 FULL TEXT: You/Your Family Experience fever (hyperthermia) with Anesthesia Last Oral Intake Last Oral intake: Last Oral Intake NPO since 21:00 08/22/24 06:35 Meds taken in AM with sips of No 08/22/24 06:35 water? Meds patient instructed to take am of surgery PONV PONV - c java developer: PONV - c java developer Female No 08/14/24 13:38 HX of Motion Sickness No 08/14/24 13:38 HX of N/V After Surgery No 08/14/24 13:38 Non-Smoker Yes 08/14/24 13:38 Duration of Surgery greater No 08/14/24 13:38 than 60 minutes Number of Risk Factors 1 08/14/24 13:38 PONV Score Low Risk 08/14/24 13:38 Height & Weight Height & Weight: Anesthesia: Height & Weight Height 5 ft 9 in 08/22/24 06:35 Weight: 89.267 kg 08/22/24 06:35 Body Mass Index (BMI) 29.0 08/22/24 06:35 Respiratory Assessment Respiratory Assessment - c java developer: Respiratory Tract Infection Hx - c java developer Hx Respiratory Tract Infection No 08/14/24 13:38 STOP Sleep Apnea STOP Sleep Apnea - c java developer: STOP Sleep Apnea - c java developer Hx Hypertension Yes 08/14/24 13:38 Hx Sleep Apnea Yes 08/14/24 13:38 CPAP Yes 08/14/24 13:38 BIPAP No 08/14/24 13:38 Do you snore loudly (louder than talking or can be heard Do you often feel tired/ fatigued/ sleepy during daytime? Has anyone observed you stop breathing during sleep? STOP Results Positive 08/14/24 13:38 QUESTION #5 FULL TEXT : Do you snore loudly (louder than talking or can be heard through closed doors)? 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 Specify any problems Hx of Preganancy in last 3 N/A 08/14/24 13:38 Months Nurse Filling Out Transfusion EHMAN 08/14/24 13:38 & Questions: Date: 08/14/24 08/14/24 13:38 Time: 13:45 08/14/24 13:38 Patient unable to answer at this time (ie. confused, unrespo /Reproduction History /Reproductive History - c java developer: /Reproductive Hx- c java developer Hx Now Gestational Age (in weeks): EDC: Hx Hx Para Hx Section SAB No 12/06/21 14:57 Active Medications Active Medications: Current Medications Generic Name Dose Route Start Last Admin Trade Name Freq PRN Reason Stop Dose Admin Sodium Chloride 1,000 mls @ 15 mls/hr 08/22/24 06:20 08/22/24 06:39 IV 08/27/24 19:39 15 mls/hr .Q48H FAYE Administration Protocol PFSH Medical History Wears hearing aid Wears dentures Wears glasses High cholesterol Non-smoker CPAP (continuous positive airway pressure) dependence Sleep apnea Cardiology follow-up encounter COVID-19 (~09/2022) MARLYS on CPAP Vitamin D deficiency Atherosclerosis of coronary artery of [place] heart without angina pectoris Primary hyperparathyroidism History of deep vein thrombosis of lower extremity Kidney stones Condyloma acuminata Hyperlipidemia Hyperparathyroidism RLS (restless legs syndrome) Sleep apnea Dog bite DVT (deep venous thrombosis) Home Medications ?Medication ?Instructions ?Recorded ?Last Taken ?Type metoprolol tartrate 25 mg tablet 25 mg PO BID ##0 04/19/15 08/21/24 Rx aspirin 81 mg tablet,delayed 81 mg PO DAILY 09/03/23 08/21/24 History release rosuvastatin 40 mg tablet 40 mg PO DAILY 09/03/23 08/21/24 History ascorbic acid (vitamin C) 500 mg 500 mg PO DAILY 12/11/23 08/21/24 History capsule amlodipine 5 mg tablet 5 mg PO DAILY 12/27/23 08/21/24 History cholecalciferol (vitamin D3) 25 50 mcg PO DAILY 05/13/24 08/21/24 History mcg (1,000 unit) tablet omega 1-npo-vzt-fish oil 1,200 mg 1 cap PO BID 05/13/24 08/11/24 History (144 mg-216 mg) capsule (Fish Oil) multivitamin (Daily Multi-Vitamin 1 tab PO DAILY 08/14/24 08/21/24 History tablet) Allergy/AdvReac Type Severity Reaction Status Date / Time No Known Allergies Allergy Verified 08/22/24 06:31 Family History Mother Breast cancer Alzheimer disease Sister Breast cancer Myocardial infarction Father Myocardial infarction Alcohol abuse Surgical History History of colonoscopy (06/02/20) History of coronary artery stent placement (04/22/03) s/p shrapnel removal S/P hernia repair Status post hemorrhoidectomy Social History Smoking Status: Never smoker alcohol intake: never substance use type: does not use caffeine: Yes Type: coffee Number of servings: 2 Review of Systems (Anesthesia) ROS Narrative System reviewed and no additional complaints, except as documented.
--- NOTE | 2024-08-22 08:30 | PARA_PTH ---
PATIENT: YAHAIRA PÉREZ LOC[place] [facility] [place] U[place][id number] AGE/SX: 78/M ROOM: RE08/22/[address]: Dr. Kamaljit Koehler MD : 1945 BED: DIS: 08/22/2024 SPEC #: [id number] RECD: 08/22/24 09:29 STATUS: KENDRA LEILA #: [id number] SKYE: 08/22/24 08:[address]: Kamaljit Koehler DEPT: SURGICAL PATHOLOGY RECD BY: Zan Navarro ENTERED: 08/22/24 09:29 SP TYPE: PARATHY OTHR DR: MD Dr. Elmer Davis Chi, MD Tissues: Parathyroid Procedures: Frozen Section (charge) Frozen Section Add'l ([facility]) Surgery Specimen Level IV HEADER OPERATION: Parathyroidectomy with IONM and PTH monitoring PRE-OP DIAGNOSIS: Primary hyperparathyroidism TISSUE SUBMITTED: A- Right inferior parathyroid, B- Right superior parathyroid, C- Left inferior parathyroid gland FROZEN SECTION DIAGNOSIS A. Right inferior parathyroid gland, excision: Hyperplastic parathyroid gland (822mg). B. Right superior parathyroid tissue, biopsy: Parathyroid tissue (0.001gm). C. Left inferior parathyroid gland, excision: Hyperplastic parathyroid gland (0.188gm). . 08/22/2024 MICROSCOPIC DIAGNOSIS A. Right inferior parathyroid gland, excision: Hyperplastic parathyroid gland tissue (822mg). See comment. B. Right superior parathyroid gland, biopsy: Unremarkable parathyroid tissue (0.001gm). C. Left inferior parathyroid gland, excision: Hyperplastic parathyroid gland tissue (0.188gm). . 08/25/2024 COMMENT A. Unremarkable parathyroid tissue is also noted at the periphery of the hyperplastic parathyroid gland tissue. Findings may represent parathyroid adenoma. MICROSCOPIC DESCRIPTION Slides are reviewed. GROSS DESCRIPTION A. Received fresh for frozen section diagnosis labeled with the patient's name is a specimen designated Right inferior parathyroid. The specimen consists of a pinkish-brown piece of nodular tissue weighing 0.822 gm and measuring 1.8 x 1.0 x 0.7cm. The specimen is bisected, and one half of the specimen is submitted for frozen section diagnosis. Rest of the specimen is submitted in cassette 2. B. Received fresh for frozen section diagnosis labeled with the patient's name is a specimen designated Right superior parathyroid. The specimen consists of a piece of crockett-pink soft tissue weighing 0.001gm and measuring 0.1cm in greatest dimension. The entire specimen is submitted for frozen section diagnosis. C. Received fresh for frozen section diagnosis labeled with the patient's name is a specimen designated Right inferior parathyroid. The specimen consists of a pinkish-brown piece of nodular tissue weighing 0.188gm and measuring 1.5 x 0.5 x 0.3cm. The entire specimen is submitted for frozen section diagnosis in one cassette. SJ 08/22/2024 TC:[id number]
[2024-08-22 09:35] LABS: PTHIN 95.3 pg/mL (18.4-80.1)
[2024-08-22 09:44] LABS: PTHIN 91.6 pg/mL (18.4-80.1)
[2024-08-22 10:39] LABS: PTHIN 71.2 pg/mL (18.4-80.1)
[2024-08-22] MEDS: Bupivacaine 0.25% 30 ML Vial (11:30)
[2024-08-22 11:35] LABS: PTHIN 19.6 pg/mL (18.4-80.1)
[2024-08-22 11:43] LABS: PTHIN 17.2 pg/mL (18.4-80.1)
--- NOTE | 2024-08-22 12:06 | PCM.OPRPT ---
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 Surgery/Procedure Performed: Parathyroidectomy (x 2) with intraoperative nerve and PTH monitoring animal nutrition consultant: Yes Flame Channeler: Gabi Ferris Tasks completed by early childhood teacher assistant: Opening & closing and Retracting Type of Anesthesia: General/Supplemental RN Documented Start/Stop Times: Operation Date: 08/22/24 07:30 Case Time Into Pre-Op 08/22/24 06:16 Anesthesia Start 08/22/24 07:30 Into Room 08/22/24 07:30 Procedure Start 08/22/24 08:18 Procedure End 08/22/24 12:04 Anesthesia End 08/22/24 12:10 Out of Room 08/22/24 12:10 Into Recovery 08/22/24 12:12 Out of Recovery 08/22/24 13:28 Into Phase II Recovery 08/22/24 13:34 Out of Phase II 08/22/24 16:08 Procedure Start Time: 08:18 Procedure Stop Time: 12:04 Select all DRAINS/GRAFTS/IMPLANTS that apply: None Estimated Blood Loss: 25 Specimen collected: Yes Description of specimen(s) removed: 1. Right inferior parathyroid 2. Rule out right superior parathyroid for frozen section 3. Left inferior parathyroid Description of surgery: After appropriate identification in the preoperative holding area the patient was brought to the operating room where he was positioned supine on the operating room table. There he was induced with general endotracheal anesthetic. Of note, a preoperative PTH had been obtained and was reported as 159. Patient was then intubated using a Nims tube and glidescope to ensure coaptation between the vocal cords and the Nims tube electrodes. A resistance check confirmed appropriate function of the tube after the electrodes were properly connected to the monitoring box. Patient was then positioned in cervical extension, but adequately supporting the occiput. Bedside ultrasound was used to identify the hypoechoic area of interest inferior and posterior to the inferior pole of the right thyroid lobe. Patient was prepped and draped in the usual sterile fashion and a formal timeout followed to confirm patient and the procedure to be performed. A local block was produced with infiltration of local anesthetic and a 4cm transverse incision was made. This was deepened with the use of electrocautery through the platysma. Ultimately the strap muscles were exposed and were from one another as I proceeded with dissection laterally towards the patient's right internal jugular vein. Once this structure was sufficiently exposed I obtained a baseline central vein PTH level. This ultimately returned at 241. For the interim I returned to the patient's neck and the 2 heads of the sternothyroid muscle were divided along their raphe with electrocautery. I then used blunt dissection to free the sternothyroid muscle from the thyroid capsule of the right thyroid lobe deeply. With this exposure I elevated the pole of the right thyroid lobe. It became immediately apparent that patient had a large parathyroid gland located just deeply and inferiorly to this pole. Careful blunt dissection was employed to free the structure from its surrounding soft tissue attachments it was then circumferentially freed so that it remained suspended by its vascular pole only. At this point a medium titanium clip was placed across the pole and the gland was sharply amputated free. This specimen was passed off the field for frozen section confirmation. (Later, pathology telephoned the room to notify us that indeed this represented a large parathyroid gland weighing 822 mg). As we awaited this result, I irrigated the surgical cavity with sterile water and examined for hemostasis. Finding this intact, I also developed the plane between the thyroid capsule and the strap muscles to try to identify the second parathyroid gland on this side. The tracheoesophageal groove was also developed bluntly and I confirmed an intact signal from our right recurrent laryngeal nerve using our Nims monitor. Right internal jugular ex vivo blood draws were made with a 22-gauge needle and syringe at 10 and 15 minutes were 95.3 and 91.6, respectively. Although this represented a drop in our initial PTH value it did not satisfy criteria for a cure and thus I obtained 1 additional sample from the right internal jugular vein to effectively exclude the possibility of a delayed fall as I proceeded to further develop my dissection along the superior aspect of patient's right thyroid lobe to identify a superior parathyroid. I began adjacent to the patient's trachea and identified some inferior constrictor fibers but did not identify any candidates for parathyroid. As I extended the dissection more laterally however I did encounter a bulbous structure that was somewhat infiltrated by fatty tissue and much women specialist in color than the specimen removed inferiorly. Given the shape of this structure I elected to obtain a biopsy of its tip after placing a small titanium clip and submitted this for frozen section. Pathology would later confirm this indeed represented parathyroid tissue. When our third right internal jugular specimen returned at 71.2 I made the decision to extend my dissection onto the contralateral side since the right superior gland appeared morphologically normal. Once again I the sternothyroid muscle from the anterior capsule of the left thyroid lobe and its lateral aspect. This allowed me to elevate the inferior pole of the left thyroid lobe and almost immediately I appreciated a enlarged parathyroid gland. Again I carefully circumferentially dissected this structure free of the surrounding tissue until it was isolated on its vascular pedicle. This pedicle was secured with a medium titanium clip and the specimen was sharply amputated. It was passed off the operative field for frozen section confirmation. I then turned my attention to bluntly the sternothyroid and sternohyoid muscles and exposing the left internal jugular vein. Here PTH samples were obtained at 10 and 15 minutes and resulted at 19.6 and 17.2, respectively. Satisfied with this result both surgical cavities were inspected for hemostasis. There was some slight oozing adjacent patient's inferior constrictor muscle fibers on the right as well as in the region of the ligament of Ashley. Swatches of Surgicel hemostatic agent were placed in both locations and then employed selective electrocautery in the region of the ligament of Ashley to obtain hemostasis. Satisfied with the hemostasis, I performed closure of the neck in layers. The strap muscles were run with a 3-0 Vicryl suture to reapproximate the raphe, but a gap was left in the inferior most portion of the strap muscles. Then the platysmal layer was reapproximated with interrupted 3-0 Vicryl. Additional local anesthetic was instilled. The skin was closed using a running 4-0 Monocryl in a subcuticular fashion. Steri-Strips and Telfa OpSite was applied as a dressing. Patient was then awoken from general anesthetic and taken to PACU for ongoing recovery. Surgical Findings: ? Markedly enlarged right inferior parathyroid weighing 822 mg and hyperpigmented in gross appearance ? Multiple cyst within thyroid gland ? Well-functioning right recurrent laryngeal nerve ? Grossly?normal-appearing right superior parathyroid which was biopsy-proven parathyroid tissue ? Enlarged, hyperpigmented left inferior parathyroid weighing 188 mg Complications Complications: No Admit VTE Documentation VTE Mechan Device Prophylaxis: SCD's
--- NOTE | 2024-08-22 12:09 | EX.PCM.DISCH ---
Discharge Instructions Diet Discharge Diet: No restrictions (However recommend a liquid to soft diet initially postoperatively) Activity Discharge Activity: May Not Drive (While it remains difficult to check blind spots quickly) May shower in (days): 2 Ice area for (Minutes): 20 Lifting Restrictions: No lifting greater than 15 pounds for 2 weeks after surgery Dressing / Incision Call your doctor if your incision/area has: Continuous Slow Oozing, Sudden Increased Bleeding, Increased Pain/ Swelling, Increased Redness and Swelling at the incision site Call your doctor if you observe: Numbness or Tingling Remove Dressing in: 2 days (Please leave Steri-Strips intact until they fall off spontaneously or are taken off at your follow-up visit) Cleanse incision/area with: Soap & Water Follow Up Care Please Follow Up With: Kamaljit Koehler MD When: 7 days postop Test Results: Test results from this visit will be discussed in further detail at your follow-up appointment, if applicable. Discharge Plan Admission Primary Reason for Your Visit: Parathyroidectomy Attending Provider: Kamaljit Koehler Primary Care Provider: Elmer Arnett Chi Consulting Providers: Live Muñoz Instructions Print Language: Mexican Discharge Orders/Prescriptions Prescriptions: New calcium carbonate-vitamin D3 [Os-Adelso 500 + D3] 500 mg-15 mcg (600 unit) tablet 2 tab PO BID 15 Days Qty: 60 0RF calcitriol 0.25 mcg capsule 0.25 mcg PO DAILY 15 Days Qty: 15 0RF Continued rosuvastatin 40 mg tablet 40 mg PO DAILY aspirin 81 mg tablet,delayed release (DR/EC) 81 mg PO DAILY omega 4-tiy-fdv-fish oil [Fish Oil] 1,200 (144-216) mg capsule 1 cap PO BID ascorbic acid (vitamin C) 500 mg capsule 500 mg PO DAILY amlodipine 5 mg tablet 5 mg PO DAILY cholecalciferol (vitamin D3) 25 mcg (1,000 unit) tablet 50 mcg PO DAILY metoprolol tartrate 25 MG tablet 25 mg PO BID Qty: 0 0RF multivitamin [Daily Multi-Vitamin] Tablet 1 tab PO DAILY Other Ambulatory Orders: 12 Lead EKG (Routine) Timeframe: 20240815 Location: None Selected Ordered By: Dr. Live Muñoz Referrals / Follow Up: Elmer Arnett Chi, MD [Primary Care Provider] - Disposition Disposition (needs filled in before D/C Order can be placed): Home, Self Care
--- NOTE | 2024-08-22 12:17 | PCM.POST.ANE ---
Anesthesia: Postop Eval I Current Vital Signs Temperature: 98 F Pulse Rate: 93 Blood Pressure: 147/78 Respiratory Rate: 22 Pulse Ox: 98 Oxygen Delivery Method: Room Air Assessment Airway patent: Yes Spontaneous unlabored respirations: Yes Mental status: Asleep nausea: No Vomiting: No Anesthesia Complication: No Fluid Hydration Crystalloid volume administer (ml): 1,400 Total IV fluid infused: 1,400 Progress Note Anesthesia document: Postop Eval 1 completed: Yes
--- NOTE | 2024-08-22 12:41 | POSTOPAN2_ITS ---
Anesthesia Postop Eval I Sum Postop Eval Completion status Anesthesia document: Postop Eval 1 completed: Yes Anesthesia Postop Eval I Summary Anesthesia Postop Eval I Summary: Anesthesia Postop Eval I: Assessment Summary Airway patent Yes 08/22/24 12:18 [email or web address] Spontaneous unlabored Yes 08/22/24 12:18 UTILITY [email or web address] respirations Mental status Asleep 08/22/24 12:18 [email or web address] nausea No 08/22/24 12:18 UTILITY [email or web address].[email or web address] Vomiting No 08/22/24 12:18 UTILITY [email or web address].[email or web address] Anesthesia Postop Eval I: Fluid Summary Crystalloid volume administer 1,400 08/22/24 12:18 [email or web address] (ml) Colloids volume administered ( ml) Blood Product volume administered (ml) Total IV fluid infused 1,400 08/22/24 12:18 [email or web address].[email or web address] Anesthesia Postop Eval I: Summary Notes Anesthesia Complication No 08/22/24 12:18 [email or web address].[email or web address] Anesthesia Complication Comment: Post-operative progress note Anesthesia: Postop Eval II Evaluation Mental status: Awake and Calm Pain Level: 1 nausea: No Vomiting: No Complications Anesthesia Complication: No
--- NOTE | 2024-08-22 12:41 | PCM.POSTANE2 ---
Anesthesia Postop Eval I Sum Postop Eval Completion status Anesthesia document: Postop Eval 1 completed: Yes Anesthesia Postop Eval I Summary Anesthesia Postop Eval I Summary: Anesthesia Postop Eval I: Assessment Summary Airway patent Yes 08/22/24 12:18 DATA [email or web address] Spontaneous unlabored Yes 08/22/24 12:18 DATA MANAGEMENT.[email or web address] respirations Mental status Asleep 08/22/24 12:18 DATA [email or web address] nausea No 08/22/24 12:18 DATA MANAGEMENT.[email or web address] Vomiting No 08/22/24 12:18 DATA MANAGEMENT.[email or web address] Anesthesia Postop Eval I: Fluid Summary Crystalloid volume administer 1,400 08/22/24 12:18 DATA MANAGEMENT.[email or web address] (ml) Colloids volume administered ( ml) Blood Product volume administered (ml) Total IV fluid infused 1,400 08/22/24 12:18 DATA MANAGEMENT.[email or web address] Anesthesia Postop Eval I: Summary Notes Anesthesia Complication No 08/22/24 12:18 DATA [email or web address] Anesthesia Complication Comment: Post-operative progress note Anesthesia: Postop Eval II Evaluation Mental status: Awake and Calm Pain Level: 1 nausea: No Vomiting: No Complications Anesthesia Complication: No
[2024-08-22 12:48] LABS: PTHIN 9.2 pg/mL (18.4-80.1)
== END 2024-08-22 16:08 | disposition home or self-care (01) ==
LOC: SDC 06:02 → AC 06:03
PROVIDERS: Anesthesiology; PCP Family Medicine Geriatric Medicine; Referring Provider Surgery; Visit Provider Surgery
PROC: (CPT 60500; principal; 2024-08-22 07:15)
DX: E21.0 Primary hyperparathyroidism (principal); I10 Essential (primary) hypertension; E04.1 Nontoxic single thyroid nodule; M81.0 Age-related osteoporosis without current pathological fracture; I25.10 Atherosclerotic heart disease of native coronary artery without angina pectoris; E78.5 Hyperlipidemia, unspecified; Z80.3 Family history of malignant neoplasm of breast; Z95.5 Presence of coronary angioplasty implant and graft; Z86.16 Personal history of COVID-19; Z86.718 Personal history of other venous thrombosis and embolism; G47.33 Obstructive sleep apnea (adult) (pediatric); Z99.89 Dependence on other enabling machines and devices
CPT/HCPCS: 60500; 00320; 36415; 80048; 83970; 85027; 88305; 88331; 88332; 93005; A4648; J2405

== ENCOUNTER → 2024-09-03 | Outpatient (CLI) | payer OTHER, SELFPAY ==
[2024-09-03 12:00] LABS: PTHIN 6.7 pg/mL (18.4-80.1)
[2024-09-03 12:05] LABS: Calcium,Total 11.4 mg/dL (8.5-10.1)
== END | disposition home or self-care (01) ==
LOC: LAB 11:17
PROVIDERS: PCP Family Medicine Geriatric Medicine; Referring Provider Surgery; Visit Provider Surgery
DX: E89.2 Postprocedural hypoparathyroidism (principal)
CPT/HCPCS: 36415; 82310; 83970

== ENCOUNTER → 2024-09-10 | Outpatient (CLI) | payer OTHER, SELFPAY ==
[2024-09-10 09:10] LABS: Calcium,Total 10.1 mg/dL (8.5-10.1)
[2024-09-10 09:17] LABS: PTHIN 10.9 pg/mL (18.4-80.1)
== END | disposition home or self-care (01) ==
LOC: LAB 07:51
PROVIDERS: PCP Family Medicine Geriatric Medicine; Referring Provider Physician Assistant; Visit Provider Physician Assistant
DX: E89.2 Postprocedural hypoparathyroidism (principal)
CPT/HCPCS: 36415; 82310; 83970

== ENCOUNTER → 2024-09-15 | Outpatient (CLI) | payer OTHER, SELFPAY ==
[2024-09-15 15:49] LABS: ALB/GLOB Ratio 1.1 RATIO (0.9-2.4); AST(SGOT) 22 U/L (15-37); Alanine Aminotransfer ALT/SGPT 46 U/L (16-61); Albumin, Serum 3.6 g/dL (3.2-5.0); Alkaline Phosphatase 54 U/L (45-117); Anion Gap 4 (5-15); BUN 16 mg/dL (7-18); BUN/Creat Ratio 13.7 RATIO (10-20); Calcium,Total 9.1 mg/dL (8.5-10.1); Chloride 110 mmol/L (98-107); Creatinine, Serum 1.17 mg/dL (0.70-1.30); EST Glomerular Filtration Rate 64 mL/min (>60); Est Glom Filt Rate - Afr Amer 77 mL/min (>60); Globulin 3.2 g/dL (2.2-4.2); Glucose 88 mg/dL (74-106); Potassium 3.8 mmol/L (3.5-5.1); Protein, Total 6.8 g/dL (6.4-8.2); Sodium Level 141 mmol/L (136-145)
[2024-09-15 15:53] LABS: PTHIN 30.1 pg/mL (18.4-80.1)
[2024-09-15 15:56] LABS: Vitamin D,25 Hydroxy 28.8 ng/mL
[2024-09-15 16:18] LABS: Calcium 9.2 mg/dL (8.5-10.1); Magnesium 2.4 mg/dL (1.6-2.6)
== END | disposition home or self-care (01) ==
PROVIDERS: Internal Medicine Endocrinology, Diabetes & Metabolism; Physician Assistant; PCP Family Medicine Geriatric Medicine; Referring Provider Surgery; Visit Provider Surgery
DX: Z98.890 Other specified postprocedural states (principal); Z90.89 Acquired absence of other organs; E55.9 Vitamin D deficiency, unspecified; E21.0 Primary hyperparathyroidism
CPT/HCPCS: 36415; 80053; 82306; 82310; 83735; 83970

== ENCOUNTER → 2024-09-29 | Outpatient (CLI) | payer MEDICARE, SELFPAY ==
[2024-09-29 16:09] LABS: Absolute Lymphocyte Count 1.69 X10^3/uL (0.83-4.51); Absolute Neutrophil Count 4.7 X10^3/uL (2.0-7.7); Basophil# 0.08 X10^3/uL; Basophil% 1.1 % (0-1); Eosinophils% 2.6 % (0-5); Hematocrit 45.4 % (40-54); Hemoglobin 15.2 g/dL (13.0-16.5); Lymphocyte # 1.69 X10^3/ul (0.83-4.51); Lymphocyte % 22.3 % (19-41); Mean Corp Hgb Conc 33.5 g/dL (32-36); Mean Corpuscular Volume 95.6 fL (80-94); Mean Platelet Vol. 9.4 fl (6.2-12.0); Monocyte# 0.86 X10^3/uL; Monocyte% 11.3 % (0-10); NRBC Flagged by Analyzer 0 % (0-5); Neutrophil # 4.69 X10^3/uL (2.7-7.7); Neutrophil % 61.8 % (47-70); Platelet Count 175 K/mm3 (150-450); RBC Distribution Width CV 12.6 % (11.6-14.6); RBC Distribution Width SD 44.2 fl (35.1-43.9); Red Blood Count 4.75 M/mm3 (4.6-6.2); White Blood Count 7.6 K/mm3 (4.4-11.0)
[2024-09-29 16:28] LABS: Vitamin D,25 Hydroxy 37.8 ng/mL
[2024-09-29 19:32] LABS: AST(SGOT) 40 U/L (15-37); Alanine Aminotransfer ALT/SGPT 68 U/L (16-61); Albumin, Serum 3.5 g/dL (3.2-5.0); Alkaline Phosphatase 62 U/L (45-117); Anion Gap 5 (5-15); BUN 22 mg/dL (7-18); BUN/Creat Ratio 15.8 RATIO (10-20); Chloride 107 mmol/L (98-107); Cholesterol 147 mg/dL (200); Creatinine, Serum 1.39 mg/dL (0.70-1.30); EST Glomerular Filtration Rate 52 mL/min (>60); Est Glom Filt Rate - Afr Amer 63 mL/min (>60); Globulin 3.6 g/dL (2.2-4.2); Glucose 99 mg/dL (74-106); High Density Lipoprotein 46 mg/dL; Potassium 4.2 mmol/L (3.5-5.1); Protein, Total 7.1 g/dL (6.4-8.2); Sodium Level 140 mmol/L (136-145); Triglycerides 260 mg/dL; Very Low Density Lipoprotein 52 mg/dL (5-40)
[2024-10-01 11:08] LABS: HEPATITIS B SURFACE AG Negative (Negative); Hep C Antibodies Non Reactive (Non Reactive); Hepatitis A IgM Antibody Negative (Negative); Hepatitis B Core AB IgM Negative (Negative)
== END | disposition home or self-care (01) ==
PROVIDERS: PCP Family Medicine Geriatric Medicine; Referring Provider Internal Medicine Endocrinology, Diabetes & Metabolism; Visit Provider Internal Medicine Endocrinology, Diabetes & Metabolism
DX: R53.83 Other fatigue (principal); E55.9 Vitamin D deficiency, unspecified; E78.5 Hyperlipidemia, unspecified; R74.8 Abnormal levels of other serum enzymes
CPT/HCPCS: 36415; 80053; 80061; 80074; 82306; 84443; 85025

== ENCOUNTER → 2024-10-03 | Outpatient (CLI) | payer MEDICARE, SELFPAY ==
--- NOTE | 2024-10-03 07:15 | US_ITS ---
PROCEDURE: ABDOMEN LIMITED REASON FOR EXAM: Elevated liver enzymes. COMPARISON: None FINDINGS: Liver: Diffusely echogenic suggesting fatty infiltration. Gallbladder: Solitary gallstone measuring 3 mm x 3 mm x 3 mm. There is also evidence of a 4 mm x 3 mm x 3 mm gallbladder polyp. Common bile duct: Normal measuring 4.8 mm. Pancreas: Visualized portions are sonographically unremarkable. The right kidney measures 11.3 cm x 5.3 cm x 5.9 cm. The renal cortex measures 1.3 cm. 3 cysts are seen in the right kidney. The larger measures 1.4 cm x 1.5 cm x 1 cm. This is in the inferior pole. Incidental note is made of a nonobstructive right intrarenal calculus measuring 5 mm x 6 mm x 3 mm. No right upper quadrant ascites. US/Abdomen Limited IMPRESSION: Solitary gallstone. Small gallbladder polyp. Fatty infiltration of the liver. Right renal cysts and nonobstructive right intrarenal calculus. Reading Location: [id number]
== END | disposition home or self-care (01) ==
LOC: US 07:12
PROVIDERS: PCP Family Medicine Geriatric Medicine; Referring Provider Family Medicine Geriatric Medicine; Visit Provider Family Medicine Geriatric Medicine
DX: R74.8 Abnormal levels of other serum enzymes (principal)
CPT/HCPCS: 76705

== ENCOUNTER → 2024-11-10 | Outpatient (CLI) | payer MEDICARE, SELFPAY ==
--- NOTE | 2024-11-10 07:12 | US_ITS ---
PROCEDURE: ELASTOGRAPHY [facility]CH[facility]MA[facility] 11/10/2024 REASON FOR EXAM: ELEVATED LIVER ENZYMES COMPARISON: 10/03/2024 TECHNIQUE: Element Power S-shear wave elastography was performed for non-invasive assessment of liver tissue stiffness. FINDINGS: Number of measurements: 15 measurements across three regions, five measurements per region. US probe: CA1-7A. EQI median: 7.17 kPa EQI median velocity: 1.54 m/s IQR/Med: 12.7-17.4% (kPa) and 6.0-8.6% (m/s). If the IQR/Med is IQR/median >30% (for kPa) or >15% in m/s, the variance in the measurements is a large and the accuracy of the measurement may be in question. US/Elastography Parenchyma/Organ IMPRESSION: 1. Liver stiffness is 7.17 kPa. Per the below 2020 SRU criteria, this rules out compensated advanced chronic liver disease in the absence of other known clinical signs. If there are known clinical signs, furth er testing may be needed for confirmation. 2. Additional description as above. Assessment is per the Update to the SRU Liver Elastography Consensus Statement (2020) Note that the above assessment of liver fibrosis is vendor-neutral and intended for use in fibrosis related to viral etiologies and non-alcoholic fatty-liver disease (NAFLD); in causes other than viral hepat itis and NAFLD, the cutoff values are currently not well established. In some patients with NAFLD, the cutoff values for cACLD may be lower (7-9 kPa). Note also that in the setting of elevated LFTs, nonfasting or vascular congestion, the stage of lifer fibrosis may be overestimated. Previous SRU reference values: <1.37 m/s (5.7kPa): No to mild fibrosis 1.37 m/s - 2.2 m/s: Moderate to severe fibrosis >2.2 m/s (15kPa): Significant fibrosis / cirrhosis Reading Location: [id number]
== END | disposition home or self-care (01) ==
PROVIDERS: PCP Family Medicine Geriatric Medicine; Referring Provider Family Medicine Geriatric Medicine; Visit Provider Family Medicine Geriatric Medicine
DX: R74.8 Abnormal levels of other serum enzymes (principal)
CPT/HCPCS: 91200; 76981

== ENCOUNTER → 2025-02-16 | Outpatient (CLI) | payer MEDICARE, SELFPAY ==
[2025-02-16 15:58] LABS: Mucous, Urine 0 SEEN /hpf (<or=2+); Squamous Epithelial Cells - UA 0 SEEN /hpf (0-5)
--- NOTE | 2025-02-16 16:10 | RAD_ITS ---
PROCEDURE: CHEST PA AND LATERAL 02/16/2025 REASON FOR EXAM: CHEST PAIN TECHNIQUE: CHEST PA AND LATERAL COMPARISON: No FINDINGS: Normal heart size. Well inflated lungs. No consolidation, effusion, or pneumothorax. RAD/Chest PA and Lateral IMPRESSION: No acute findings Reading Location: [place] [id number]
[2025-02-16 16:43] LABS: Hematocrit 49.9 % (40-54); Hemoglobin 16.8 g/dL (13.0-16.5); Immature Granulocytes Count 0.030 X10^3/uL (0.0-0.0); Mean Corp Hgb Conc 33.7 g/dL (32-36); Mean Corpuscular Volume 93.8 fL (80-94); Mean Platelet Vol. 9.8 fl (6.2-12.0); NRBC Flagged by Analyzer 0 % (0-5); Platelet Count 199 K/mm3 (150-450); RBC Distribution Width CV 12.5 % (11.6-14.6); RBC Distribution Width SD 42.6 fl (35.1-43.9); Red Blood Count 5.32 M/mm3 (4.6-6.2); White Blood Count 6.9 K/mm3 (4.4-11.0)
[2025-02-16 17:01] LABS: Color, Urine Yellow (Yellow); Glucose, Dipstick Normal (Normal); Ketone-Dipstick Negative (Negative); Leukocyte Esterase-Dipstick Negative /ul (Negative); Nitrite-Dipstick Negative (Negative); Occult Blood-Urine Negative /ul (Negative); Protein-Dipstick 15 mg/dl (Negative); Specific Gravity, Urine 1.010 (1.002-1.030); Urine Bilirubin Dipstick Negative (Negative)
[2025-02-16 17:26] LABS: Red Blood Cells-Urine 0-5 SEEN /hpf (0-5)
[2025-02-16 17:43] LABS: D-Dimer Quantitative (DVT/PE) 0.27 FEU/ug/m (0.27-0.49)
[2025-02-16 18:18] LABS: AST(SGOT) 25 U/L (<=37); Alanine Aminotransfer ALT/SGPT 32 U/L (<=46); Albumin, Serum 4.5 g/dL (3.4-4.8); Alkaline Phosphatase 62 U/L (40-129); Anion Gap 14 (5-15); BUN 14 mg/dL (4-19); BUN/Creat Ratio 13.0 RATIO (10-20); Calcium,Total 10.1 mg/dL (7.6-11.0); Carbon Dioxide 22.1 mmol/L (21.0-32.0); Chloride 106 mmol/L (98-108); Globulin 2.9 g/dL (2.2-4.2); Glucose 91 mg/dL (70-99); Potassium 4.5 mmol/L (3.3-5.1)
[2025-02-16 18:24] LABS: CPK Total, Creatine Kinase 97 U/L (24-195); Pro- Brain NATRIURETIC PEPTIDE 121 pg/mL (<=1800); Troponin T High Sensitivity 6 ng/L (<=22)
[2025-02-17 00:03] LABS: Xtra Tube Kwok EXTRA TUBE
[2025-02-18 04:07] LABS: Myoglobin, Serum 34 ng/mL (28-72)
== END | disposition home or self-care (01) ==
PROVIDERS: PCP Family Medicine Geriatric Medicine; Referring Provider Family Medicine Geriatric Medicine; Visit Provider Family Medicine Geriatric Medicine
DX: I10 Essential (primary) hypertension (principal); R53.83 Other fatigue; R07.9 Chest pain, unspecified
CPT/HCPCS: 36415; 71046; 80053; 81001; 82550; 83874; 83880; 84443; 84484; 85025; 85379; 87086; 87088

== ENCOUNTER → 2025-02-18 | Outpatient (CLI) | payer MEDICARE, SELFPAY ==
--- NOTE | 2025-02-18 06:54 | EKG12_ITS ---
Test Reason : CHEST PAIN Blood Pressure : */* mmHG Vent. Rate : 68 BPM Atrial Rate : 68 BPM P-R Int : 186 ms QRS Dur : 102 ms QT Int : 410 ms P-R-T Axes : 16 -1 -21 degrees QTcB Int : 435 ms Normal sinus rhythm Nonspecific T wave abnormality Abnormal ECG When compared with ECG of 15-Aug-2024 07:51, Criteria for Inferior infarct are no longer Present Confirmed by Kamaljit Hendricks ([id number]), editorial writer AICHA MARIE ([id number]) on 02/19/2025 8:32:50 AM Referred By: Elmer Arnett Confirmed By: Kamaljit Hendricks
--- OUTSIDE RECORDS SUMMARY | 2025-02-18 06:55 | XMS RPT_ITS | CCD ---
Author Organization [facility] Care Team Providers Care Graduate Teaching Assistant Name Role Phone HUSEYIN RILEY [place], [place] Primary Care Provider UnavailDr. Yeni Mathew Attending Provider [phone] Dr. Obdulio Smith Referring Provider Dr. Drake Monique Attending Provider Dr. Thad Alonzo Attending Provider PHYSICIAN, NONE Primary Care Physician Unavail lore HALL MD, [facility] Attending [facility] PHYSICIAN, NONE Primary Care [facility], [place] Referring Provider Unavailable Dr. Jared Padilla Attending Provider Dr. Elmer Gillette Chi Primary Care Provider [place], [place] Referring Provider Unavailable Dr. Jared Padilla Attending Provider [phone] Dr. Elmer Gillette Chi Primary Care Provider Dr. Elmer Gillette MD, Chi Primary Care Provider [phone] Dr. Elmer Gillette MD, Chi Attending Provider Dr. Kamaljit Koehler MD Attending Provider Dr. Kamaljit Koehler MD Referring Provider Dr. Elmer Gillette MD, Chi Referring Provider Dr. Kamaljit Hendricks MD Attending Provider Wanda LAWRENCE, Dr. Mancini Referring Provider [phone] Live Muñoz MD Other Provider Dr. Kamaljit Koehler MD Other Provider [phone] Migdalia Dunlap PA-C Attending Provider Dunlap PA-C, Migdalia Referring Provider King MELINDA, Dr. Coleman Attending Provider Unavailable King MELINDA, Dr. oCleman Referring Provider Melquiades LAWRENCE, Dr. Elmer Multani Primary Care Provider Rodo LAWRENCE, Dr. Mari Attending Provider Rodo LAWRENCE, Dr. Mari Referring Provider Melquiades LAWRENCE, Dr. Elmer Multani Referring Provider Ruthie LAWRENCE, Dr. Mari Attending Provider Wanda LAWRENCE, Dr. Mancini Referring Provider Wanda LAWRENCE, Dr. Mancini Other Provider Rodo LAWRENCE, Dr. Mari Other Provider Fabi PA-C, Migdalia Attending Provider Fabi PA-C, Migdalia Referring Provider King MELINDA, Dr. Coleman Attending Provider Unavailable King MELINDA, Dr. Coleman Referring Provider Melquiades LAWRENCE, Dr. Elmer Multani Attending Provider King MELINDA, Dr. Coleman Attending Provider Melquiades, Elmer Chi Primary Care Unavailable Melquiades, Elmer Chi Referring Unavailable Kamaljit Koehler Attending Unavailable Melquiades, Elmer Chi Referring Unavailable Melquiades, Elmer Chi Primary Care Unavailable Melquiades, Elmer Chi Attending Unavailable Melquiades, Elmer Chi Attending Unavailable Melquiades, Elmer Chi Referring Unavailable Melquiades, Elmer Chi Primary Care Unavailable Kamaljit Koehler Attending Unavailable Melquiades, Elmer Chi Primary Care Unavailable , Jared Referring Unavailable Melquiades, Elmer Chi Primary Care Unavailable Melquiades, Elmer Chi Referring Unavailable Kamaljit Koehler Attending Unavailable Melquiades, Elmer Chi Primary Care Unavailable Live Muñoz Referring Unavailable Kamaljit Hendricks Attending Unavailable Melquiades, Elmer Chi Primary Care Unavailable Kamaljit Koehler Attending Unavailable Live Muñoz Consulting Unavailable Kamaljit Koehler Referring Unavailable Kamaljit Koehler Consulting Unavailable Jared Padilla Attending Unavailable Randy, Jared Referring Unavailable Melquiades, Elmer Chi Primary Care Unavailable Melquiades, Elmer Chi Attending Unavailable Melquiades, Elmer Chi Primary Care Unavailable Kamaljit Koehler Attending Unavailable Melquiades, Elmer Chi Primary Care Unavailable Kamaljit Koehler Referring Unavailable Melquiades, Elmer Chi Primary Care Unavailable Kamaljit Koehler Unavailable Live Muñoz Unavailable Kamaljit Koehler Referring Unavailable Melquiades, Elmer Chi Primary Care Unavailable Jared Padilla Referring Unavailable Jared Padilla Attending Unavailable Melquiades, Elmer Chi Primary Care Unavailable Kamaljit Koehler Attending Unavailable Kamaljit Koehler Referring Unavailable Melquiades, Elmer Chi Primary Care Unavailable Migdalia Bray Referring Unavailable Fabi PAMigdalia Attending Unavailable Melquiades, Elmer Chi Primary Care Unavailable Melquiades, Elmer Chi Attending Unavailable Kamaljit Koehler Referring Unavailable Melquiades, Elmer Chi Primary Care Unavailable Kamaljit Koehler Attending Unavailable Melquiades, Elmer Chi Primary Care Unavailable Melquiades, Elmer Chi Referring Unavailable Jared Padilla Attending Unavailable Melquiades, Elmer Chi Primary Care Unavailable Melquiades, Elmer Chi Referring Unavailable Jared Padilla Attending Unavailable Melquiades, Elmer Chi Primary Care Unavailable Melquiades, Elmer Chi Referring Unavailable Kamaljti Hendricks Attending Unavailable Medications Current Medications Medication Drug Class(es) Dates Sig (Normalized) Sig (Original) amLODIPine 5 mg oral tablet (10 sources) Dihydropyridine Calcium Channel García Start: 12-27-2023 take 1 tablet by mouth once daily Amlodipine 5 mg tablet Active 5 mg PO DAILY December 27, 2023 12:00am Start: 01-27-2022 End: 09-03-2023 take 1 tablet by mouth once daily Amlodipine 2.5 mg tablet Discontinued 2.5 mg PO DAILY January 27, 2022 12:00am September 03, 2023 12:36pm ascorbic acid 500 mg oral capsule (13 sources) Vitamin C Start: 12-11-2023 take 1 capsule by mouth once daily Ascorbic Acid (Vitamin C) 500 mg capsule Active 500 mg PO DAILY December 11, 2023 12:00am Start: 12-01-2021 End: 12-11-2023 take 1 g by mouth once daily Ascorbic Acid (Vitamin C) (Vitamin C) 1,000 mg Tablet Discontinued 1 g PO DAILY December 01, 2021 12:00am December 11, 2023 11:42am aspirin 81 mg delayed release oral tablet (16 sources) Platelet Aggregation Inhibitor, Nonsteroidal Anti-inflammatory Drug Start: 09-03-2023 take 1 tablet by mouth once daily Aspirin 81 mg tablet,delayed release (DR/EC) Active 81 mg PO DAILY September 03, 2023 1:00am Start: 05-22-2014 End: 05-20-2020 take 1 tablet by mouth once daily Aspirin 81 MG tablet,chewable Discontinued 81 mg PO DAILY@0800 May 22, 2014 12:00am May 20, 2020 2:28pm cholecalciferol 0.025 mg oral tablet (16 sources) Vitamin D Start: 05-13-2024 take 1 tablet by mouth once daily Cholecalciferol (Vitamin D3) 25 mcg (1,000 unit) tablet Active 50 ug PO DAILY May 13, 2024 8:01am Start: 12-11-2023 End: 05-13-2024 take 1 tablet by mouth once daily Cholecalciferol (Vitamin D3) 25 mcg (1,000 unit) tablet Discontinued 25 ug PO DAILY December 11, 2023 12:00am May 13, 2024 8:03am Start: 05-20-2020 End: 12-11-2023 take 1 capsule by mouth once daily Cholecalciferol (Vitamin D3) 50 mcg (2,000 unit) capsule Discontinued 50 ug PO DAILY May 20, 2020 12:00am December 11, 2023 11:43am L.Acid-L.Rham-B.Breve-S.Ther m (Probiotic) 3 billion cell Tablet,Chewable (10 sources) Start: 12-01-2021 take 3 tablets by mouth once daily L.Acid-L.Rham-B.Breve-S.Therm (Probiotic) 3 billion cell Tablet,Chewable Active 1 TABLET PO DAILY December 01, 2021 2:26am Start: 12-01-2021 End: 09-03-2023 take 3 tablets by mouth once daily L.Acid-L.Rham-B.Breve-S.Therm (Probiotic ) 3 billion cell Tablet,Chewable Discontinued 1 {tbl} PO DAILY December 01, 2021 12:00am September 03, 2023 12:37pm Start: 12-01-2021 End: 09-03-2023 take 3 tablets by mouth once daily L.Acid-L.Rham-B.Breve-S.Therm (Probiotic ) 3 billion cell Tablet,Chewable Discontinued 1 {tbl} PO DAILY November 30, 2021 11:00pm September 03, 2023 11:37am Start: 12-01-2021 End: 09-03-2023 take 3 tablets by mouth once daily L.Acid-L.Rham-B.Breve-S.Therm (Probiotic ) 3 billion cell Tablet,Chewable Discontinued 1 TABLET PO DAILY December 01, 2021 12:00am September 03, 2023 12:37pm Start: 12-01-2021 End: 09-03-2023 take 3 tablets by mouth once daily L.Acid-L.Rham-B.Breve-S.Therm (Probiotic ) 3 billion cell Tablet,Chewable Discontinued 1 TABLET PO DAILY November 30, 2021 11:00pm September 03, 2023 11:37am Start: 12-01-2021 take 3 tablets by mo uth once daily L.Acid-L.Rham-B.Breve-S.Therm (Probiotic ) 3 billion cell Tablet,Chewable Active 1 TABLET PO DAILY December 01, 2021 12:00am metoprolol tartrate 25 mg oral tablet (20 sources) beta-Adrenergic García Start: 04-19-2015 take 1 tablet by mouth twice daily Metoprolol Tartrate 25 MG tablet Active 25 mg PO TWICE A DAY 0 April 19, 2015 3:44pm Start: 05-04-2014 End: 04-19-2015 take 1 tablet by mouth once daily Metoprolol Tartrate 25 MG tablet Discontinued 25 mg PO DAILY May 04, 2014 12:00am April 19, 2015 3:44pm Multivitamin (Daily Multi-Vitamin) tablet (3 sources) Start: 08-14-2024 Multivitamin ( Daily Multi-Vitamin) tablet Active 1 {tbl} PO DAILY August 14, 2024 1:00am Start: 08-14-2024 Multivitamin ( Daily Multi-Vitamin) tablet Active 1 {tbl} PO DAILY August 14, 2024 12:00am [place] 9-Azw-Ibt-Fish Oil (Fi sh Oil) 1,200 (144-216) mg capsule (3 sources) Start: 05-13-2024 [place] 3-Dha-Ep a-Fish Oil (Fish Oil) 1,200 (144-216) mg capsule Active 1 NMA PO TWICE A DAY May 13, 2024 12:00am Start: 05-13-2024 [place] 3-Dha-Ep a-Fish Oil (Fish Oil) 1,200 (144-216) mg capsule Active 1 NMA PO TWICE A DAY May 12, 2024 11:00pm rosuvastatin calcium 40 mg oral tablet (16 sources) HMG-CoA Reductase Inhibitor Start: 09-03-2023 take 1 tablet by mouth once daily Rosuvastatin 40 mg tablet Active 40 mg PO DAILY September 03, 2023 1:00am Start: 05-04-2014 End: 09-03-2023 Rosuvastatin 5 MG tablet Discontinued 40 mg PO AT BEDTIME May 04, 2014 12:00am September 03, 2023 12:38pm Start: 05-04-2014 End: 09-03-2023 take 40 mg by mouth at bedtime Rosuvastatin Discontinu ed 40 MG PO AT BEDTIME May 04, 2014 12:00am September 03, 2023 12:38pm Completed/Discontinued Medications Medication Drug Class(es) Dates Sig (Normalized) Sig (Original) acetaminophen 325 mg / oxyCODONE hydrochloride 5 mg oral tablet (20 sources) Opioid Agonist Start: 12-10-2021 End: 03-07-2022 Oxycodone-Acetamino phen 1 TABLET tablet Discontinued 1 {tbl} PO Q4H as needed for Pain 12 December 10, 2021 March 07, 2022 3:34pm Start: 12-10-2021 End: 03-07-2022 take 1 tablet by mouth every four hours Oxycodone-Acetaminophen Discontinued 1 TABLET PO Q4H 12 December 10, 2021 March 07, 2022 3:34pm Start: 12-06-2021 End: 09-03-2023 take 1 tablet by mouth every six hours Oxycodone-Acetaminophen Discontinued 1 TABLET PO EVERY 6 HOURS 14 December 06, 2021 September 03, 2023 12:37pm Start: 12-01-2021 End: 09-03-2023 Oxycodone-Acetaminophen 5-32 5 mg tablet Discontinued 1 {tbl} PO EVERY 6 HOURS as needed for pain 14 December 06, 2021 September 03, 2023 12:37pm Start: 04-16-2015 End: 05-20-2020 Oxycodone-Acetaminophen 1 TA BLET tablet Discontinued 1 {tbl} PO EVERY 4 HOURS NEEDED as needed for Pain April 19, 2015 3:47pm May 20, 2020 2:29pm Start: 04-16-2015 End: 05-20-2020 take 1 tablet by mouth every four hours as needed Oxycodone-Acetaminophen Discontinued 1 TABLET PO EVERY 4 HOURS NEEDED April 19, 2015 3:47pm May 20, 2020 2:29pm calcitriol 0.04646 mg oral capsule (3 sources) Vitamin D3 Analog Start: 08-22-2024 End: 11-11-2024 take 1 capsule by mouth once daily Calcitriol 0.25 mcg capsule Discontinued 0.25 ug PO DAILY 15 August 22, 2024 1:00am November 11, 2024 7:55am calcium carbonate 1250 mg / cholecalciferol 600 unt oral tablet (3 sources) Vitamin D Start: 08-22-2024 End: 11-11-2024 Calcium Carbonate-Vitamin D3 (Os-Adelso 500 + D3) 500 mg-15 mcg (600 unit) tablet Discontinued 2 {tbl} PO TWICE A DAY 60 August 22, 2024 1:00am November 11, 2024 7:56am cephalexin 500 mg oral capsule (10 sources) Cephalosporin Antibacterial Start: 12-01-2021 End: 03-07-2022 take 1 capsule by mouth three times daily Cephalexin 500 mg capsule Discontinued 500 mg PO THREE TIMES A DAY 21 December 01, 2021 12:00am March 07, 2022 3:34pm ciprofloxacin 500 mg oral tablet (20 sources) Quinolone Antimicrobial Start: 12-06-2021 End: 03-07-2022 take 1 tablet by mouth twice daily Ciprofloxacin Hcl (Cipro) 500 mg tablet Discontinued 500 mg PO TWICE A DAY December 06, 2021 12:00am March 07, 2022 3:35pm Start: 04-19-2015 End: 05-20-2020 Ciprofloxacin Hcl 500 MG tab let Discontinued 250 mg PO TWICE A DAY April 19, 2015 3:44pm May 20, 2020 2:28pm Start: 04-19-2015 End: 05-20-2020 take 250 mg by mouth twice daily Ciprofloxacin Hcl Discontinued 250 MG PO TWICE A DAY April 19, 2015 3:44pm May 20, 2020 2:28pm Start: 04-16-2015 End: 04-19-2015 take 1 tablet by mouth twice daily Ciprofloxacin Hcl 500 MG tablet Discontinued 500 mg PO TWICE A DAY April 16, 2015 12:00am April 19, 2015 3:44pm clopidogrel 75 mg oral tablet (10 sources) P2Y12 Platelet Inhibitor Start: 05-22-2014 End: 11-14-2023 take 1 tablet by mouth once daily Clopidogrel 75 MG tablet Discontinued 75 mg PO DAILY May 22, 2014 12:00am November 14, 2023 1:59pm [place] 6-Ubp-Kra-Fish Oil (7 sources) Start: 02-09-2022 End: 12-11-2023 [place] 8-Xjt-Rxy-Fish Oil (Fish Oil) 300-1,000 mg capsule Discontinued 1 NMA PO DAILY February 09, 2022 12:00am December 11, 2023 11:47am Start: 02-09-2022 End: 12-11-2023 [place] 3-Fri-Rgw-Fish Oil (Fi sh Oil) 300-1,000 mg capsule Discontinued 1 NMA PO DAILY February 08, 2022 11:00pm December 11, 2023 10:47am Start: 02-09-2022 take 300-1000 mg by mouth once daily [place] 3-Qrf-Kao-Fish Oil (Fish Oil) 300-1,000 mg capsule Active 1 CAP PO DAILY February 08, 2022 11:00pm Start: 02-09-2022 take 300-1000 mg by mouth once daily [place] 7-Qya-Nmc-Fish Oil (Fish Oil) 300-1,000 mg capsule Active 1 CAP PO DAILY February 09, 2022 12:00am lisinopril 5 mg oral tablet (13 sources) Angiotensin Converting Enzyme Inhibitor Start: 12-11-2023 End: 12-27-2023 take 2.5 mg by mouth once daily Lisinopril 5 mg tablet Discontinued 2.5 mg PO DAILY December 11, 2023 12:00am December 27, 2023 1:26pm Start: 05-04-2014 End: 05-20-2020 take 5 mg by mouth once daily Lisinopril 10 MG tablet Discontinued 5 mg PO DAILY May 04, 2014 12:00am May 20, 2020 2:30pm Start: 05-04-2014 End: 05-20-2020 take 5 mg by mouth once daily Lisinopril Discontinued 5 MG PO DAILY May 04, 2014 12:00am May 20, 2020 2:30pm Multivit With Min-Folic Acid (Adult Multivitamin Gummies) 120 mcg tablet,chewable (6 sources) Start: 09-03-2023 End: 12-11-2023 take 1 tablet by mouth once daily Multivit With Min-Folic Acid (Adult Multivitamin Gummies) 120 mcg tablet,chewable Discontinued 1 {tbl} PO DAILY September 03, 2023 1:00am December 11, 2023 11:47am Start: 09-03-2023 End: 12-11-2023 take 1 tablet by mouth once daily Multivit With Min-Folic Acid (Adult Multivitamin Gummies) 120 mcg tablet,chewable Discontinued 1 {tbl} PO DAILY September 03, 2023 12:00am December 11, 2023 10:47am Start: 09-03-2023 take 1 tablet by rui th once daily Multivit With Min-Folic Acid (Adult Multivitamin Gummies) 120 mcg tablet,chewable Active 1 TABLET PO DAILY September 03, 2023 1:00am Start: 09-03-2023 take 1 tablet by rui th once daily Multivit With Min-Folic Acid (Adult Multivitamin Gummies) 120 mcg tablet,chewable Active 1 TABLET PO DAILY September 03, 2023 12:00am ondansetron 4 mg disintegrating oral tablet (20 sources) Serotonin-3 Receptor Antagonist Start: 04-16-2015 End: 05-20-2020 take 1 tablet by mouth every eight hours as needed for nausea Ondansetron 4 MG tablet Discontinued 4 mg PO EVERY 8 HOURS NEEDED as needed for Nausea April 19, 2015 3:44pm May 20, 2020 2:28pm prevagen (3 sources) Start: 12-11-2023 End: 05-13-2024 take 10 mg by mouth once daily prevagen Discontinued 10 mg PO DAILY December 11, 2023 12:00am May 13, 2024 8:02am Start: 12-11-2023 End: 05-13-2024 take 10 mg by mouth once daily prevagen Discontinued 1 0 mg PO DAILY December 10, 2023 11:00pm May 13, 2024 7:02am rivaroxaban 20 mg oral tablet (13 sources) Factor Xa Inhibitor Start: 09-03-2023 End: 11-14-2023 take 1 tablet by mouth once daily at dinner Rivaroxaban (Xarelto) 20 mg tablet Discontinued 20 mg PO DAILY September 03, 2023 1:00am November 14, 2023 1:59pm must administer with evening meal Start: 01-27-2022 End: 03-07-2022 take 1 tablet by mouth once daily at dinner Rivaroxaban 20 mg tablet Discontinued 20 mg PO DAILY January 27, 2022 12:00am March 07, 2022 3:34pm must administer with evening meal tamsulosin hydrochloride 0.4 mg oral capsule (20 sources) alpha-Adrenergic García Start: 12-01-2021 End: 09-03-2023 take 1 capsule by mouth once daily Tamsulosin (Flomax) 0.4 mg capsule Discontinued 0.4 mg PO DAILY December 01, 2021 12:00am September 03, 2023 12:38pm Start: 04-16-2015 End: 05-20-2020 take 1 capsule by mouth once daily Tamsulosin 0.4 MG capsule Discontinued 0.4 mg PO DAILY April 19, 2015 4:21pm May 20, 2020 2:29pm ubidecarenone 10 mg oral capsule (7 sources) Start: 02-09-2022 End: 09-03-2023 Coenzyme Q10 10 mg capsule Discontinued 10 mg PO ONCE February 09, 2022 12:00am September 03, 2023 12:37pm 100 ml zoledronic acid 0.05 mg/ml injection (4 sources) Bisphosphonate Start: 11-05-2023 End: 08-14-2024 Zoledronic Tdtt-Yvnoekys-Gkttu 5 mg/100 mL piggyback Discontinued 1 NMA .Route ONCE November 05, 2023 12:00am August 14, 2024 2:37pm infuse over 20 minutes Problems Active Problems Problem Classification Problem Date Documented Date Episodic/Chronic Calculus of urinary tract (20 sources) Renal colic; Translations: [Unspecified renal colic] 12-09-2021 Episodic Complications of surgical procedures or medical care (7 sources) Hypoparathyroidism following procedure; Translations: [Postprocedural hypoparathyroidism] Onset: 5 08-22-2024 Chronic Coronary atherosclerosis and other heart disease (11 sources) Coronary arteriosclerosis; Translations: [Coronary atherosclerosis] Onset: 4 05-20-2020 Chronic Comment on above: Patient history of k nown coronary disease status post remote stenting of the mid and distal right coronary arteries [place] [address] Crabtree. Secondary risk factors have been treated and are adequately controlled. Blood pressure is slightly elevated in the office today but in his home environment it runs 137-140/70. Disorders of lipid metabolism (11 sources) Hyperlipidemia; Translations: [Hyperlipidemia, unspecified] Onset: 4 05-20-2020 Chronic Comment on above: Lipids are at goal o n his current medical therapy. E Codes: Natural/environment (10 sources) Dog bite - wound; Translations: [Bitten by dog, initial encounter] 05-20-2020 Episodic Essential hypertension (4 sources) Hypertensive disorder; Translations: [Essential (primary) hypertension] Onset: 4 12-27-2023 Chronic Comment on above: Patient blood pressu re in the office today is 152/80. The patient reports this is unusually high for him in his home environment he runs 135-140/70-80. Malaise and fatigue (1 source) Other fatigue; Translations: [Other fatigue] Onset: 5 Episodic Osteoporosis (2 sources) Osteoporosis; Translations: [Age-related osteoporosis without current pathological fracture] 11-11-2024 Chronic Comment on above: secondary to hyperpa rathyroidism (now resolved) Other endocrine disorders (10 sources) Hyperparathyroidism; Translations: [Hyperparathyroidism, unspecified] 05-20-2020 Chronic Other endocrine disorders (9 sources) Primary hyperparathyroidism; Translations: [Primary hyperparathyroidism] 09-13-2023 Chronic Comment on above: Patient is 78-year-o ld male who presents for surgical consultation related to a diagnosis of primary hyperparathyroidism. Patient presented today with his and, jointly, they stated they were unclear on the diagnosis so I spent an extensive amount of time discussing not only the biochemical diagnosis of primary hyperparathyroidism, but then also the surgical indications generally speaking and those that were patient specific. I also went into the explanation for parathyroid localization as it pertains to the excepted etiologies for primary hyperparathyroidism. Hand drawings were made to illustrate relevant points as I proceeded. All questions were answered as we proceeded as well. I communicated that I was both convinced of patient's diagnosis of primary hyperparathyroidism as well as his surgical indications namely history of kidney stones, his elevated calcium level, his osteoporosis, and his elevated urinary calcium level (above 400). I added that his history of coronary artery disease status post coronary stenting is to be considered as well. 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 Unfortunately this was not called by radiology and I shared that his thyroid parenchyma containing cysts/small nodules is likely to decrease the sensitivity of sestamibi. However, I did recommend proceeding with this study and hoping for concordance with my study. At the conclusion of this study I would like to sit down with patient and his for another consultation visit to discuss his candidacy for surgical management of this disease process. Patient and his repeatedly ask questions that I had addressed before and they confessed that they would likely only remember about a third of what was spoken, but I tried to entertain their questions as they arose.Update 08/01/2024: Patient presents for follow-up after his initial consultation visit June. Fortunately, sestamibi imaging was abnormal and there is apparent co-localization with my ultrasound exam which suggested a lesion of the right inferior position. I discussed the significance of this localization as well as reiterated my belief that Mr. Morfin not only possesses surgical indicators but makes a acceptable surgical candidate. I then went on to describe the procedure for a minimally invasive parathyroidectomy complete with PTH monitoring. Hand drawings were made to illustrate both relevant anatomy and concepts. Not only did Mr. Morfin appear to understand but he was able to repeat insightfully back to me the critical information. I specifically discussed the risks of hypoparathyroidism and recurrent laryngeal nerve injury in addition to possibility of bleeding or infection with any surgery. I stated that the most likely outcome is that he would require a transient period of supplemental calcium. Upon hearing all of this information it is Mr. Tovar's preference to be underway with surgery as soon as possible. I am asking him to hold his fish oil preoperatively to minimize his perioperative bleeding risk. Other endocrine disorders (4 sources) Primary hyperparathyroidism; Translations: [Primary hyperparathyroidism] Onset: 5 09-13-2023 Chronic Other endocrine disorders (1 source) Hyperparathyroidism, unspecified; Translations: [Hyperparathyroidism, unspecified] Onset: 5 Chronic Other hereditary and degenerative nervous system conditions (10 sources) Restless legs; Translations: [Restless legs syndrome] 05-20-2020 Chronic Other liver diseases (2 sources) Abnormal levels of other serum enzymes; Translations: [Abnormal levels of other serum enzymes] Onset: 5 Episodic Phlebitis; thrombophlebitis and thromboembolism (18 sources) Deep venous thrombosis; Translations: [Acute embolism and thrombosis of unspecified deep veins of unspecified lower extremity] Episodic Residual codes; unclassified (10 sources) Sleep apnea; Translations: [Sleep apnea, unspecified] 05-20-2020 Chronic Residual codes; unclassified (10 sources) History of hernia repair; Translations: [Other specified postprocedural states] 05-20-2020 Episodic Residual codes; unclassified (10 sources) History of surgical procedure on vein; Translations: [Other specified postprocedural states] 05-20-2020 Episodic Residual codes; unclassified (7 sources) History of parathyroidectomy; Translations: [Other specified postprocedural states] 09-03-2024 Episodic Comment on above: Patient is 78-year-o ld male status post parathyroidectomy x 2 for double adenoma. He had an excellent biochemical result but did end up with some hypoparathyroidism postoperatively. He appears to be doing well in his recovery. We obtained results for directing his weaning of supplemental calcium and this did show oversupplementation suggesting return of parathyroid activity however he is now hypercalcemic and this is blunting his PTH so that it is a lower value and then he left the hospital with. I recommend immediate de-escalation of supplementation with tighter interval rechecking. Residual codes; unclassified (1 source) Other specified postprocedural states; Translations: [Other specified postprocedural states] Onset: 5 Episodic Unclassified (1 source) Nasal Injury / [id number]() Onset: 8 Viral infection (10 sources) Condyloma acuminatum of the anogenital region; Translations: [Anogenital (venereal) warts] 05-20-2020 Episodic Past or Other Problems Problem Classification Problem Date Documented Da te Episodic/Chronic Coronary atherosclerosis and other heart disease (1 source) Presence of coronary angioplasty implant and graft; Translations: [Presence of coronary angioplasty implant and graft] Onset: 05-12-2024 Episodic Residual codes; unclassified (1 source) Chills (without fever); Translations: [Chills (without fever)] Onset: 07-09-2024 Episodic Unclassified (1 source) Nasal Injury; Translations: [Nasal Injury] Onset: 01-29-2018 Unclassified (10 sources) s/p shrapnel removal 02-25-2022 Results Test Name Value Interpretation Reference Range Facility Endocrinology Visit Reporton 11-11-2024 Endocrinology Visit Report [facility] [address] [place], [place] [address] OFFICE VISIT Date of Service: 11/11/24 MR#: [id number] Acct: [id number] Name: YAHAIRA MORFIN Rep #: [id number] : 1945 Provider: Ness Camacho Age/Sex: 78/M [place] [facility] [place]: Signed Intake Vital Signs 05/13/24 07:55 08/22/24 06:35 11/11/24 07:54 Height 5 ft 9 in 5 ft 9 in 5 ft 9 in Weight: 199 lb 6 oz BMI 29.4 BP 163/76 H Blood Pressure Location Lt brachial Position Sitting Pulse 70 Pulse Source Monitor Pulse Oximetry (%) 95 Oxygen Delivery Method room air Intake Visit Reasons: 6 M FU Chief Complaint: s/p parathyroidectomy DOS 08/22 Is patient in pain?: No Allergies No Known Allergies Allergy (Verified 11/11/24 07:55) Medications ???Medication ???Instructions ???Recorded ???Confirmed ???Type metoprolol tartrate 25 mg tablet 25 mg PO BID ##0 04/19/15 11/11/24 Rx aspirin 81 mg tablet,delayed 81 mg PO DAILY 09/03/23 11/11/24 H istory release rosuvastatin 40 mg tablet 40 mg PO DAILY 09/03/23 11/11/24 H istory ascorbic acid (vitamin C) 500 mg 500 mg PO DAILY 12/11/23 11/11/24 History capsule amlodipine 5 mg tablet 5 mg PO DAILY 12/27/23 11/11/24 Hi story cholecalciferol (vitamin D3) 25 50 mcg PO DAILY 05/13/24 11/11/24 History mcg (1,000 unit) tablet omega 6-owv-ztl-fish oil 1,200 mg 1 cap PO BID 05/13/24 11/11/24 Hi story (144 mg-216 mg) capsule (Fish Oil) multivitamin (Daily Multi-Vitamin 1 tab PO DAILY 08/14/24 11/11/24 History tablet) Have you fallen in the past year?: No PFSH Medical History (Updated 11/11/24 @ 08:[address] Jared Padilla MD) Osteoporosis Wears hearing aid Wears dentures Wears glasses High cholesterol Non-smoker CPAP (continuous positive airway pressure) dependence Sleep apnea Cardiology follow-up encounter COVID-19 ( 09/2022) MARLYS on CPAP Vitamin D deficiency Atherosclerosis of coronary artery of [place] heart without angina pectoris Primary hyperparathyroidism History of deep vein thrombosis of lower extremity Kidney stones Condyloma acuminata Hyperlipidemia Hyperparathyroidism RLS (restless legs syndrome) Sleep apnea Dog bite DVT (deep venous thrombosis) Surgical History (Updated 11/11/24 @ 08:[address] Jared Padilla MD) History of colonoscopy (06/02/20) History of coronary artery stent placement (04/22/03) s/p shrapnel removal S/P hernia repair Status post hemorrhoidectomy Family History Mother Breast cancer Alzheimer disease Sister Breast cancer Myocardial infarction Father Myocardial infarction Alcohol abuse Social History Smoking Status: Never smoker alcohol intake: never substance use type: does not use caffeine: Yes Type: coffee Number of servings: 2 HPI HPI Chief Complaint: s/p parathyroidectomy DOS 08/22 Details: YAHAIRA MORFIN, is a 78 M who presents to the office today for follow up. He had surgery in August. He had temporary hypoparathyroidism, with recovery. He is currently taking vitamin D3 2,000 IU daily and no calcium. Labs in September were good. [facility] a [facility] He has a small kidney stone on renal ultrasound, no pain. He has T-score of -2.6 in the femoral neck. ROS Const Constitutional: No fatigue or weight change ENT ENT: No dizziness/vertigo Cardio Cardiology: No chest pain at rest, chest pain with exertion, shortness of breath or palpitations Skin Skin: No wounds Endo Endocrine: No fatigue or weight change Exam Const General: cooperative, healthy appearing, comfortable, no acute distress, well developed and not cushingoid Nutritional Appearance: well nourished Orientation: alert, awake and oriented x3 HENMT Head: normal to inspection Ears: hearing grossly normal bilaterally Nose: external nose normal Mouth: oral mucosae normal Eyes General: appearance normal, both eyes and all related structures Alignment and Position: alignment normal Periorbital: periorbital findings normal Eyelids: eyelids normal Conjunctivae: conjunctivae normal Neck Neck: normal visual inspection Neck mass: No Thyroid: thyroid normal and other (scar well healed) Lymphatic: no lymphadenopathy noted Chest Chest palpation inspection: normal inspection of the chest Resp Effort Inspection: normal respiratory effort, able to speak in complete sentences, symmetric chest movement, no audible wheezes and no cough Auscultation: Bilateral: Clear to Auscultation Cardio Rate: regular rate Rhythm: regular rhythm Skin General: no rashes or lesions noted Neuro General: patient alert, patient awake and patie (more content not included)... Normal [facility] Elastography Parenchyma/Orga non 11-10-2024 Elastography Parenchyma/Organ [facility] [address] [place] [address] Elastography Parenchyma/Organ MR#: [id number] Acct: [id number] Name: YAHAIRA MORFIN Rep #: [id number] : 1945 M 78 From: Zeke Moore MD PCP: Dr. Elmer Gillette MD Status: REG CLI Study: Elastography Parenchyma/Organ Date of Exam: Exam# [id number] Ordering Dr: Elmer Gillette MD PROCEDURE: ELASTOGRAPHY PARENCHYMA/ORGAN (USELPAROG), 11/10/2024 REASON FOR EXAM: ELEVATED LIVER ENZYMES COMPARISON: 10/03/2024 TECHNIQUE: [employer] S-shear wave elastography was performed for non-invasive assessment of liver tissue stiffness. FINDINGS: Number of measurements: 15 measurements across three regions, five measurements per region. US probe: CA1-7A. EQI median: 7.17 kPa EQI median velocity: 1.54 m/s IQR/Med: 12.7-17.4% (kPa) and 6.0-8.6% (m/s). If the IQR/Med is IQR/median >30% (for kPa) or >15% in m/s, the variance in the measurements is a large and the accuracy of the measurement may be in question. US/Elastography Parenchyma/Organ IMPRESSION: 1. Liver stiffness is 7.17 kPa. Per the below 2020 SRU criteria, this rules out compensated advanced chronic liver disease in the absence of other known clinical signs. If there are known clinical signs, further testing may be needed for confirmation. 2. Additional description as above. Assessment is per the Update to the SRU Liver Elastography Consensus Statement (2020) Note that the above assessment of liver fibrosis is vendor-neutral and intended for use in fibrosis related to viral etiologies and non-alcoholic fatty-liver disease (NAFLD); in causes other than viral hepatitis and NAFLD, the cutoff values are currently not well established. In some patients with NAFLD, the cutoff values for cACLD may be lower (7-9 kPa). Note also that in the setting of elevated LFTs, nonfasting or vascular congestion, the stage of lifer fibrosis may be overestimated. Previous U reference values: <1.37 m/s (5.7kPa): No to mild fibrosis 1.37 m/s - 2.2 m/s: Moderate to severe fibrosis >2.2 m/s (15kPa): Significant fibrosis / cirrhosis Reading Location: [id number] CC: Dr. Elmer Gillette MD Coil Taper: Signed Normal [facility] Abdomen Limitedon 10-03-2024 Abdomen Limited [facility] [address] [place] [id number] Abdomen Limited MR#: [id number] Acct: [id number] Name: YAHAIRA MROFIN Rajesh Rep #: [id number] : 1945 78 From: Demetri harp MD PCP: Dr. Elmer Gillette MD Status: [facility] Study: Abdomen Limited Date of Exam: 10/03/24 Exam# [id number] Ordering Dr: Elmer Gillette MD PROCEDURE: ABDOMEN LIMITED REASON FOR EXAM: Elevated liver enzymes. COMPARISON: None FINDINGS: Liver: Diffusely echogenic suggesting fatty infiltration. Gallbladder: Solitary gallstone measuring 3 mm x 3 mm x 3 mm. There is also evidence of a 4 mm x 3 mm x 3 mm gallbladder polyp. Common bile duct: Normal measuring 4.8 mm. Pancreas: Visualized portions are sonographically unremarkable. The right kidney measures 11.3 cm x 5.3 cm x 5.9 cm. The renal cortex measures 1.3 cm. 3 cysts are seen in the right kidney. The larger measures 1.4 cm x 1.5 cm x 1 cm. This is in the inferior pole. Incidental note is made of a nonobstructive right intrarenal calculus measuring 5 mm x 6 mm x 3 mm. No right upper quadrant ascites. US/Abdomen Limited IMPRESSION: Solitary gallstone. Small gallbladder polyp. Fatty infiltration of the liver. Right renal cysts and nonobstructive right intrarenal calculus. Reading Location: [id number] CC: Dr. Elmer Gillette MD Coil Taper: Signed Normal [facility] Hepatitis Panel Acuteon 09-07 COMMENT Comment Normal . [facility] Comment on above: Order Comment: ADD T O LABS DRAWN 09/29/24 Result Comment: Not infected with HCV unless early or acute infection is suspected (which may be delayed in an immunocompromised individual), or other evidence exists to indicate HCV infection. Performed at: - [facility] [id number] Pumping Supervisor: Philipp Vanegas PhD, Phone: [phone] Performed By: #### L 500.4050, L509.1000, L506.1000 #### [facility] [address] [place], [place], [id number] HEP B CORE,IgM Negative Normal Negative [facility] Comment on above: Order Comment: ADD T O LABS DRAWN 09/29/24 Performed By: #### L 500.4050, L509.1000, L506.1000 #### [facility] [address] [place], [address] HEP B SURF AG Negative Normal Negative [facility] Comment on above: Order Comment: ADD T O LABS DRAWN 09/29/24 Performed By: #### L 500.4050, L509.1000, L506.1000 #### [facility] [address] [facility] [address] HEP C VIRUS AB Non-Reactive Normal Non Reactive [facility] Comment on above: Order Comment: ADD T O LABS DRAWN 09/29/24 Performed By: #### L 500.4050, L509.1000, L506.1000 #### [facility] [address] [place], [address] HEPATITIS A-IgM Negative Normal Negative [facility] Comment on above: Order Comment: ADD T O LABS DRAWN 09/29/24 Result Comment: A ne gative anti-HAV IgM result suggests no recent or current HAV infection. Performed By: #### L 500.4050, L509.1000, L506.1000 #### [facility] [address] [place], [place], [address] HBV surface Ag IA QlOrdered By: Elmer Gillette on 09-30-2024 Hepatitis B Surface Antigen Negative Negative [facility] Hepatitis A virus IgM antibo dy assayOrdered By: Elmer Gillette on 09-30-2024 Hepatitis A IgM Antibody Negative Negative [facility] Comment on above: A negative anti-HAV IgM result suggests no recent orcurrent HAV infection. Hepatitis B virus core IgM a ntibody assayOrdered By: Elmer Gillette on 09-30-2024 Hepatitis B Core IgM Antibody Negative Negative [facility] Hepatitis C virus antibody a ssayOrdered By: Elmer Gillette on 09-30-2024 Hepatitis C Antibody (EIA) Non-Reactive Non Reactive [facility] No Panel InformationOrdered By: Elmer Gillette on 09-30-2024 Hepatitis C Antibody Comment Comment . [facility] Comment on above: Not infected with HC V unless early or acute infection issuspected (which may be delayed in an immunocompromisedindividual), or other evidence exists to indicate HCVinfection.Performed at: [facility] - [facility] [id number] Director: Philipp Vanegas PhD, Phone: [phone] [id number] DOrdered By: Jenifer Padilla on 09-29-2024 Vitamin D 25-Hydroxy 37.8 ng/mL [facility] Comment on above: Vitamin D 25(OH) Sta tus Range Deficiency <20 ng/mL (50nmol/L) Insufficiency 20 - 30 ng/mL (50 - 75 nmol/L) Sufficiency 30 - 100 ng/mL (75 - 250 nmol/L) Toxicity >100 ng/mL (>250 nmol/L) Absolute neutrophil countOrd ered By: Elmer Melquiades on 09-29-2024 Neutrophils (Bld) [#/Vol] 4.7 10*3/uL 2.0-7.7 [facility] Albumin to globulin ratioOrd ered By: Elmer Gillette on 09-29-2024 Albumin/Globulin [Mass ratio] 1.0 {ratio} 0.9-2.4 [facility] Basic Metabolic Profile (BMP )on 09-29-2024 BUN Normal 7-18 [facility] Comment on above: Result Comment: CMP ORDERED Performed By: #### L 500.2500, L506.1000 #### [facility] [address] [place], [address] BUN/CRE Normal 10-20 [facility] Comment on above: Result Comment: CMP ORDERED Performed By: #### L 500.2500, L506.1000 #### [facility] [address] [place], [address] CA,Total Normal 8.5-10.1 [facility] Comment on above: Result Comment: CMP ORDERED Performed By: #### L 500.2500, L506.1000 #### [facility] [address] [place], [address] CL Normal 98-107 [facility] Comment on above: Result Comment: CMP ORDERED Performed By: #### L 500.2500, L506.1000 #### [facility] [address] [place], [address] CO2 Normal 21.0-32.0 [facility] Comment on above: Result Comment: CMP ORDERED Performed By: #### L 500.2500, L506.1000 #### [facility] [address] [place], [address] CREAT,SERUM Normal 0.70-1.30 [facility] Comment on above: Result Comment: CMP ORDERED Performed By: #### L 500.2500, L506.1000 #### [facility] [address] [place], [address] EST GFR Normal >60 [facility] Comment on above: Result Comment: CMP ORDERED Performed By: #### L 500.2500, L506.1000 #### [facility] [address] [place], [address] EST GFR - AA Normal >60 [facility] Comment on above: Result Comment: CMP ORDERED Performed By: #### L 500.2500, L506.1000 #### [facility] [address] [place], [address] GAP Normal 5-15 [facility] Comment on above: Result Comment: CMP ORDERED Performed By: #### L 500.2500, L506.1000 #### [facility] [address] [place], [address] GLU Normal 74-106 [facility] Comment on above: Result Comment: CMP ORDERED Performed By: #### L 500.2500, L506.1000 #### [facility] [address] [place], [address] Potassium Normal 3.5-5.1 [facility] Comment on above: Result Comment: CMP ORDERED Performed By: #### L 500.2500, L506.1000 #### [facility] [address] [place], [address] Basic Metabolic Profile (BMP) Normal 136-145 [facility] Comment on above: Result Comment: CMP ORDERED Performed By: #### L 500.2500, L506.1000 #### [facility] [address] [place], [address] Basophil percentageOrdered B y: Elmer Gillette on 09-29-2024 Basophils/100 WBC (Bld) 1.1 % High 0-1 [facility] Bilirubin, totalOrdered By: Elmer Gillette on 09-29-2024 Bilirubin [Mass/Vol] 0.50 mg/dL 0.20-1.00 [facility] Comment on above: For patients on eltr ombopag therapy, use of Dimension Eunice TBIL is not recommended. Blood urea nitrogen (BUN)/cr eatinine ratioOrdered By: Elmer Gillette on 09-29-2024 Urea nitrogen/Creatinine [Mass ratio] 15.8 mg/mg 10- [facility] CBC W/Diff, Automatedon 09-07 Absolute Lymph 1.69 X10 3/uL Normal 0.83-4.51 [facility] Comment on above: Performed By: #### L 500.4050, L509.1000, L506.1000 #### [facility] [address] [place], [address] Absolute Neut 4.7 X10 3/uL Normal 2.0-7.7 [facility] Comment on above: Performed By: #### L 500.4050, L509.1000, L506.1000 #### [facility] [address] [place], [address] Basophils/100 WBC (Bld) 1.1 % High 0-1 [facility] Comment on above: Performed By: #### L 500.4050, L509.1000, L506.1000 #### [facility] [address] [place], [address] Eosinophils/100 WBC (Bld) 2.6 % Normal 0-5 [facility] Comment on above: Performed By: #### L 500.4050, L509.1000, L506.1000 #### [facility] [address] [place], [address] Erythrocyte distribution width (RBC) [Ratio] 12.6 % Normal 11.6-14.6 [facility] Comment on above: Performed By: #### L 500.4050, L509.1000, L506.1000 #### [facility] [address] [place], [address] Hematocrit (Bld) [Volume fraction] 45.4 % Normal 40-54 [facility] Comment on above: Performed By: #### L 500.4050, L509.1000, L506.1000 #### [facility] [address] [place], [address] Hemoglobin (Bld) [Mass/Vol] 15.2 g/dL Normal 13.0-16.5 [facility] Comment on above: Performed By: #### L 500.4050, L509.1000, L506.1000 #### [facility] [address] [place], [address] IG% 0.900 Normal 0.0-0.9 [facility] Comment on above: Result Comment: IG% - Immature Granulocytes (promyelocytes, myelocytes and metamyelocytes) > 1% indicates that a LEFT SHIFT is Present. Performed By: #### L 500.4050, L509.1000, L506.1000 #### [facility] [address] [place], [address] Lymphocytes/100 WBC (Bld) 22.3 % Normal 19-41 [facility] Comment on above: Performed By: #### L 500.4050, L509.1000, L506.1000 #### [facility] [address] [place], [address] MCH (RBC) [Entitic mass] 32.0 pg Normal 27.0-32.0 [facility] Comment on above: Performed By: #### L 500.4050, L509.1000, L506.1000 #### [facility] [address] [place], [address] MCHC (RBC) [Mass/Vol] 33.5 g/dL Normal 32-36 [facility] Comment on above: Performed By: #### L 500.4050, L509.1000, L506.1000 #### [facility] [address] [place], [address] MCV (RBC) [Entitic vol] 95.6 fL High 80-94 [facility] Comment on above: Performed By: #### L 500.4050, L509.1000, L506.1000 #### [facility] [address] [place], [address] Monocytes/100 WBC (Bld) 11.3 % High 0-10 [facility] Comment on above: Performed By: #### L 500.4050, L509.1000, L506.1000 #### [facility] [address] [place], [address] Neutrophils/100 WBC (Bld) 61.8 % Normal 47-70 [facility] Comment on above: Performed By: #### L 500.4050, L509.1000, L506.1000 #### [facility] [address] [place], [address] Nucleated RBC (Bld) [#/Vol] 0 10*3/uL Normal 0-5 [facility] Comment on above: Performed By: #### L 500.4050, L509.1000, L506.1000 #### [facility] [address] [place], [address] Platelet mean volume (Bld) [Entitic vol] 9.4 fL Normal 6.2-12.0 [facility] Comment on above: Performed By: #### L 500.4050, L509.1000, L506.1000 #### [facility] [address] [place], [address] Platelets (Bld) [#/Vol] 175 10*3/uL Normal 150-450 [facility] Comment on above: Performed By: #### L 500.4050, L509.1000, L506.1000 #### [facility] [address] [place], [address] RBC (Bld) [#/Vol] 4.75 10*6/uL Normal 4.6-6.2 [facility] Comment on above: Performed By: #### L 500.4050, L509.1000, L506.1000 #### [facility] [address] [place], [address] RDW SD 44.2 fl High 35.1-43.9 [facility] Comment on above: Performed By: #### L 500.4050, L509.1000, L506.1000 #### [facility] [address] [place], [address] WBC (Bld) [#/Vol] 7.6 10*3/uL Normal 4.4-11.0 [facility] Comment on above: Performed By: #### L 500.4050, L509.1000, L506.1000 #### [facility] [address] [place], [address] Carbon dioxide measurementOr dered By: Elmer Gillette on 09-29-2024 CO2 [Moles/Vol] 28.0 mmol/L 21.0-32.0 [facility] Chloride measurementOrdered By: Elmer Gillette on 09-29-2024 Chloride [Moles/Vol] 107 mmol/L 98-107 [facility] Comprehensive Metabolic Prof ilon 09-29-2024 Albumin [Mass/Vol] 3.5 g/dL Normal 3.2-5.0 [facility] Comment on above: Performed By: #### L 500.4050, L509.1000, L506.1000 #### [facility] [address] [place], [address] Albumin/Globulin [Mass ratio] 1.0 {ratio} Normal 0.9-2.4 [facility] Comment on above: Performed By: #### L 500.4050, L509.1000, L506.1000 #### [place] [facility] [address] [place], [address] ALK P 62 U/L Normal 45-117 [facility] Comment on above: Performed By: #### L 500.4050, L509.1000, L506.1000 #### [facility] [address] [place], [address] ALT [Catalytic activity/Vol] 68 U/L High 16-61 [facility] Comment on above: Performed By: #### L 500.4050, L509.1000, L506.1000 #### [facility] [address] [place], [address] AST [Catalytic activity/Vol] 40 U/L High 15-37 [facility] Comment on above: Result Comment: Mode rate Hemolysis, Result may be falsely increased. Performed By: #### L 500.4050, L509.1000, L506.1000 #### [facility] [address] [place], [address] Bilirubin [Mass/Vol] 0.50 mg/dL Normal 0.20-1.00 [facility] Comment on above: Result Comment: For patients on eltrombopag therapy, use of Dimension Eunice TBIL is not recommended. Performed By: #### L 500.4050, L509.1000, L506.1000 #### [facility] [address] [place], [address] BUN/CRE 15.8 RATIO Normal 10-20 [facility] Comment on above: Performed By: #### L 500.4050, L509.1000, L506.1000 #### [facility] [address] [place], [address] CA,Total 9.0 mg/dL Normal 8.5-10.1 [facility] Comment on above: Performed By: #### L 500.4050, L509.1000, L506.1000 #### [facility] [address] [place], [address] Chloride [Moles/Vol] 107 mmol/L Normal 98-107 [facility] Comment on above: Performed By: #### L 500.4050, L509.1000, L506.1000 #### [facility] [address] [place], [address] CO2 [Moles/Vol] 28.0 mmol/L Normal 21.0-32.0 [facility] Comment on above: Performed By: #### L 500.4050, L509.1000, L506.1000 #### [facility] [address] [place], [address] Creatinine [Mass/Vol] 1.39 mg/dL High 0.70-1.30 [facility] Comment on above: Result Comment: The validity of the calculated GFR GFRAA in patients over 70 years has not been determined. Clinical correlation is essential. Performed By: #### L 500.4050, L509.1000, L506.1000 #### [facility] [address] [place], [address] EST GFR - AA 63 mL/min Normal >60 [facility] Comment on above: Result Comment: Afri can [place] GFR Calc Performed By: #### L 500.4050, L509.1000, L506.1000 #### [facility] [address] [place], [address] GAP 5 Normal 5-15 [facility] Comment on above: Performed By: #### L 500.4050, L509.1000, L506.1000 #### [facility] [address] [place], [address] GFR/1.73 sq M.predicted among non-blacks MDRD (S/P/Bld) [Vol rate/Area] 52 mL/min/{1.73_m2} Low >60 [facility] Comment on above: Result Comment: Non- GFR Calc Performed By: #### L 500.4050, L509.1000, L506.1000 #### [facility] [address] [place], [address] Globulin (S) [Mass/Vol] 3.6 g/dL Normal 2.2-4.2 [facility] Comment on above: Performed By: #### L 500.4050, L509.1000, L506.1000 #### [facility] [address] [place], [address] Glucose [Mass/Vol] 99 mg/dL Normal 74-106 [facility] Comment on above: Performed By: #### L 500.4050, L509.1000, L506.1000 #### [facility] [address] [place], [address] Potassium [Moles/Vol] 4.2 mmol/L Normal 3.5-5.1 [facility] Comment on above: Result Comment: Mode rate Hemolysis, Result may be falsely increased. Performed By: #### L 500.4050, L509.1000, L506.1000 #### [facility] [address] [place], [address] Sodium [Moles/Vol] 140 mmol/L Normal 136-145 [facility] Comment on above: Performed By: #### L 500.4050, L509.1000, L506.1000 #### [facility] [address] [place], [address] T PROT 7.1 g/dL Normal 6.4-8.2 [facility] Comment on above: Performed By: #### L 500.4050, L509.1000, L506.1000 #### [facility] [address] [place], [address] Urea nitrogen [Mass/Vol] 22 mg/dL High 7-18 [facility] Comment on above: Performed By: #### L 500.4050, L509.1000, L506.1000 #### [facility] [place], [address] Eosinophil percentageOrdered By: Elmer Gillette on 09-29-2024 Eosinophils/100 WBC (Bld) 2.6 % 0-5 [facility] Erythrocyte distribution wid th ratioOrdered By: Elmer Gillette on 09-29-2024 Erythrocyte distribution width (RBC) [Ratio] 12.6 % 11.6-14.6 [facility] Erythrocyte distribution wid th standard deviationOrdered By: Elmer Gillette on 09-29-2024 Erythrocyte distribution width (RBC) [Entitic vol] 44.2 fL High 35.1-43.9 [facility] Estimated glomerular filtrat ion rate (GFR) AmericanOrdered By: Elmer Gillette 09-29-2024 Estimated GFR (MDRD) Amer 63 mL/min >60 [facility] Comment on above: GFR Calc Glomerular filtration rate ( GFR) estimationOrdered By: Elmer Gillette 09-29-2024 Estimated GFR (MDRD) Non-Af Amer 52 mL/min Low >60 [facility] Comment on above: Non- GFR Calc Glucose measurementOrdered B y: Elmer Gillette on 09-29-2024 Glucose [Mass/Vol] 99 mg/dL 74-106 [facility] Hematocrit Auto (Bld) [Volum e fraction]Ordered By: Elmer Gillette 09-29-2024 Hematocrit (Bld) [Volume fraction] 45.4 % 40-54 [facility] Hemoglobin measurementOrdere d By: Elmer Gillette 09-29-2024 Hemoglobin (Bld) [Mass/Vol] 15.2 g/dL 13.0-16.5 [facility] High density lipoprotein (HD L) measurementOrdered By: Elmer Gillette 09-29-2024 Cholesterol in HDL [Mass/Vol] 46 mg/dL >40 [facility] Comment on above: The drugs N-Acetylcy steine and Metamizole may falsely depress this assay. Reference Range HDL <40 mg/dL Low HDL Cholesterol HDL >or= 60 mg/dL High HDL Cholesterol Immature granulocytes/100 WB C Auto (Bld)Ordered By: Elmer Gillette 09-29-2024 Immature granulocytes/100 WBC (Bld) 0.900 % 0.0-0.9 [facility] Comment on above: IG% - Immature Granu locytes (promyelocytes, myelocytes and metamyelocytes) > 1% indicates that a LEFT SHIFT is Present. Laboratory - Chemistry and C hemistry - challengeOrdered By: Elmer Gillette on 09-29-2024 AST [Catalytic activity/Vol] 40 U/L High 15-37 [facility] Comment on above: Moderate Hemolysis, Result may be falsely increased. Lipid Profileon 09-29-2024 Cholesterol [Mass/Vol] 147 mg/dL Normal 200 [facility] Comment on above: Result Comment: <200 mg/dL Desirable 200-240 mg/dL Borderline >240 mg/dL High Risk Performed By: #### L 500.4050, L509.1000, L506.1000 #### [facility] [address] [place], [address] Cholesterol in HDL [Mass/Vol] 46 mg/dL Normal [facility] Comment on above: Result Comment: The drugs N-Acetylcysteine and Metamizole may falsely depress this assay. Reference Range HDL <40 mg/dL Low HDL Cholesterol HDL >or= 60 mg/dL High HDL Cholesterol Performed By: #### L 500.4050, L509.1000, L506.1000 #### [facility] [address] [place], [address] Cholesterol in LDL [Mass/Vol] 49 mg/dL Normal 0-130 [facility] Comment on above: Performed By: #### L 500.4050, L509.1000, L506.1000 #### [facility] [address] [place], [address] Cholesterol in VLDL [Mass/Vol] 52 mg/dL High 5-40 [facility] Comment on above: Performed By: #### L 500.4050, L509.1000, L506.1000 #### [facility] [address] [place], [address] Triglyceride [Mass/Vol] 260 mg/dL High [facility] Comment on above: Result Comment: The drugs N-Acetylcysteine and Metamizole may falsely depress this assay. Serum Triglycerides Reference Interval Normal <150 mg/dL Borderline high 150 - 199 mg/dL High 200 - 499 mg/dL Very High > or = 500 mg/dL Performed By: #### L 500.4050, L509.1000, L506.1000 #### [facility] [address] [place], [address] Low density lipoprotein (LDL ) cholesterol measurementOrdered By: Elmer Gillette on 09-29-2024 Cholesterol in LDL [Mass/Vol] 49 mg/dL 0-130 [facility] Lymphocytes Auto (Unsp spec) [#/Vol]Ordered By: Elmer Gillette on 09-29-2024 Lymphocytes (Bld) [#/Vol] 1.69 10*3/uL 0.83-4.51 [facility] Lymphocytes/100 WBC Auto (Un sp spec)Ordered By: Elmer Gillette on 09-29-2024 Lymphocytes/100 WBC (Bld) 22.3 % 19-41 [facility] MCV (mean corpuscular volume ) determinationOrdered By: Elmer Gillette 09-29-2024 MCV (RBC) [Entitic vol] 95.6 fL High 80-94 [facility] Mean corpuscular hemoglobin (MCH) determinationOrdered By: Elmer Gillette on 09-29-2024 MCH (RBC) [Entitic mass] 32.0 pg 27.0-32.0 [facility] Mean corpuscular hemoglobin concentration (MCHC) determinationOrdered By: Elmer Gillette on 09-29-2024 MCHC (RBC) [Mass/Vol] 33.5 g/dL 32-36 [facility] Mean platelet volume determi nationOrdered By: Elmer Gillette on 09-29-2024 Platelet mean volume (Bld) [Entitic vol] 9.4 fL 6.2-12.0 [facility] Monocyte percentageOrdered B y: Elmer Gillette on 09-29-2024 Monocytes/100 WBC (Bld) 11.3 % High 0-10 [facility] Neutrophil percentageOrdered By: Elmer Gillette on 09-29-2024 Neutrophils/100 WBC (Bld) 61.8 % 47-70 [facility] Nucleated red blood cell per centageOrdered By: Elmer Gillette on 09-29-2024 Nucleated RBC/100 WBC (Bld) [Ratio] 0 % 0-5 [facility] Platelet countOrdered By: Higinio Gillette on 09-29-2024 Platelets (Bld) [#/Vol] 175 10*3/uL 150-450 [facility] Potassium measurementOrdered By: Elmer Gillette on 09-29-2024 Potassium [Moles/Vol] 4.2 mmol/L 3.5-5.1 [facility] Comment on above: Moderate Hemolysis, Result may be falsely increased. RBC Auto (Bld) [#/Vol]Ordere d By: Elmer Gillette on 09-29-2024 RBC (Bld) [#/Vol] 4.75 10*6/uL 4.6-6.2 [facility] Serum anion gap measurementO rdered By: Elmer Gillette on 09-29-2024 Anion gap [Moles/Vol] 5 mmol/L 5-15 [facility] Serum globulin measurementOr dered By: Elmer Gillette 09-29-2024 Globulin (S) [Mass/Vol] 3.6 g/dL 2.2-4.2 [facility] Serum or plasma alanine doll otransferase (ALT) measurementOrdered By: Elmer Gillette 09-29-2024 ALT [Catalytic activity/Vol] 68 U/L High 16-61 [facility] Serum or plasma albumin keesha urement (mass/volume)Ordered By: Elmer Gillette 09-29-2024 Albumin [Mass/Vol] 3.5 g/dL 3.2-5.0 [facility] Serum or plasma alkaline marysol sphatase measurementOrdered By: Elmer Gillette 09-29-2024 ALP [Catalytic activity/Vol] 62 U/L 45-117 [facility] Serum or plasma calcium keesha urement (mass/volume)Ordered By: Elmer Gillette 09-29-2024 Calcium [Mass/Vol] 9.0 mg/dL 8.5-10.1 [facility] Serum or plasma cholesterol measurement (mass/volume)Ordered By: Elmer Gillette on 09-29-2024 Cholesterol [Mass/Vol] 147 mg/dL <200 [facility] Comment on above: <200 mg/dL Desirable 200-240 mg/dL Borderline >240 mg/dL High Risk Serum or plasma creatinine m easurement (mass/volume)Ordered By: Elmer Gillette on 09-29-2024 Creatinine [Mass/Vol] 1.39 mg/dL High 0.70-1.30 [facility] Comment on above: The validity of the calculated GFR & GFRAA in patients over 70 years has not been determined. Clinical correlation is essential. Serum or plasma urea nitroge n measurement (mass/volume)Ordered By: Elmer Gillette on 09-29-2024 Urea nitrogen [Mass/Vol] 22 mg/dL High 7-18 [facility] Sodium levelOrdered By: Elmer Gillette on 09-29-2024 Sodium [Moles/Vol] 140 mmol/L 136-145 [facility] TSH QnOrdered By: Elmer Gillette o n 09-29-2024 Thyroid Stimulating Hormone (TSH) 2.460 uIU/mL 0.358-3.740 [facility] Thyroid Stim Hormone (TSH)on 09-29-2024 TSH 2.460 uIU/mL Normal 0.358-3.740 [facility] Comment on above: Performed By: #### L 500.4050, L509.1000, L506.1000 #### [facility] [address] [facility] [place], [address] Total proteinOrdered By: Elmer Gillette on 09-29-2024 Protein [Mass/Vol] 7.1 g/dL 6.4-8.2 [facility] Triglycerides measurementOrd ered By: Elmer Gillette on 09-29-2024 Triglyceride [Mass/Vol] 260 mg/dL High <199 [facility] Comment on above: The drugs N-Acetylcy steine and Metamizole may falsely depress this assay.Serum Triglycerides Reference Interval Normal <150 mg/dL Borderline high 150 - 199 mg/dL High 200 - 499 mg/dL Very High > or = 500 mg/dL Very low density lipoprotein (VLDL) cholesterol measurementOrdered By: Elmer Gillette on 09-29-2024 VLDL Cholesterol 52 mg/dL High 5-40 [facility] Vitamin D,25 Hydroxyon 09-29 Vitamin D 25-OH 37.8 ng/mL Normal [facility] Comment on above: Order Comment: SUJEY BAKER. DR. GILLETTE ORDERED CMP. PLEASE CC CMP TO DR. PADILLA AND CC VIT D TO DR. GILLETTE Result Comment: Terrie min D 25(OH) Status Range Deficiency <20 ng/mL (50nmol/L) Insufficiency 20 - 30 ng/mL (50 - 75 nmol/L) Sufficiency 30 - 100 ng/mL (75 - 250 nmol/L) Toxicity >100 ng/mL (>250 nmol/L) Performed By: #### L 500.2500, L506.1000 #### [facility] [address] [place], [address] White blood cell (WBC) count Ordered By: Elmer Gillette on 09-29-2024 WBC (Bld) [#/Vol] 7.6 10*3/uL 4.4-11.0 [facility] [id number] DOrdered By: Jenifer Padilla on 09-15-2024 Vitamin D 25-Hydroxy 28.8 ng/mL [facility] Comment on above: Vitamin D 25(OH) Sta tus Range Deficiency <20 ng/mL (50nmol/L) Insufficiency 20 - 30 ng/mL (50 - 75 nmol/L) Sufficiency 30 - 100 ng/mL (75 - 250 nmol/L) Toxicity >100 ng/mL (>250 nmol/L) Albumin to globulin ratioOrd ered By: Jared Padilla on 09-15-2024 Albumin/Globulin [Mass ratio] 1.1 {ratio} 0.9-2.4 [facility] Bilirubin, totalOrdered By: Jared Padilla on 09-15-2024 Bilirubin [Mass/Vol] 0.40 mg/dL 0.20-1.00 [facility] Comment on above: For patients on eltr ombopag therapy, use of Dimension Eunice TBIL is not recommended. Blood urea nitrogen (BUN)/cr eatinine ratioOrdered By: Jared Padilla on 09-15-2024 Urea nitrogen/Creatinine [Mass ratio] 13.7 mg/mg 05-25 [facility] Carbon dioxide measurementOr dered By: Jared Padilla on 09-15-2024 CO2 [Moles/Vol] 28.0 mmol/L 21.0-32.0 [facility] Chloride measurementOrdered By: Jared Padilla on 09-15-2024 Chloride [Moles/Vol] 110 mmol/L High 98-107 [facility] Comprehensive Metabolic Prof ilon 09-15-2024 Albumin [Mass/Vol] 3.6 g/dL Normal 3.2-5.0 [facility] Comment on above: Performed By: #### L 500.4050, L509.1000, L506.1000 #### [facility] [address] [place], [address] Albumin/Globulin [Mass ratio] 1.1 {ratio} Normal 0.9-2.4 [facility] Comment on above: Performed By: #### L 500.4050, L509.1000, L506.1000 #### [facility] [address] [place], [address] ALK P 54 U/L Normal 45-117 [facility] Comment on above: Performed By: #### L 500.4050, L509.1000, L506.1000 #### [facility] [address] [place], [address] ALT [Catalytic activity/Vol] 46 U/L Normal 16-61 [facility] Comment on above: Performed By: #### L 500.4050, L509.1000, L506.1000 #### [facility] [address] [place], [address] AST [Catalytic activity/Vol] 22 U/L Normal 15-37 [facility] Comment on above: Performed By: #### L 500.4050, L509.1000, L506.1000 #### [facility] [address] [place], [address] Bilirubin [Mass/Vol] 0.40 mg/dL Normal 0.20-1.00 [facility] Comment on above: Result Comment: For patients on eltrombopag therapy, use of Dimension Eunice TBIL is not recommended. Performed By: #### L 500.4050, L509.1000, L506.1000 #### [facility] [address] [place], [address] BUN/CRE 13.7 RATIO Normal 10-20 [facility] Comment on above: Performed By: #### L 500.4050, L509.1000, L506.1000 #### [facility] [address] [place], [address] CA,Total 9.1 mg/dL Normal 8.5-10.1 [facility] Comment on above: Performed By: #### L 500.4050, L509.1000, L506.1000 #### [facility] [address] [place], [address] Chloride [Moles/Vol] 110 mmol/L High 98-107 [facility] Comment on above: Performed By: #### L 500.4050, L509.1000, L506.1000 #### [facility] [address] [place], [address] CO2 [Moles/Vol] 28.0 mmol/L Normal 21.0-32.0 [facility] Comment on above: Performed By: #### L 500.4050, L509.1000, L506.1000 #### [facility] [address] [place], [address] Creatinine [Mass/Vol] 1.17 mg/dL Normal 0.70-1.30 [facility] Comment on above: Result Comment: The validity of the calculated GFR GFRAA in patients over 70 years has not been determined. Clinical correlation is essential. Performed By: #### L 500.4050, L509.1000, L506.1000 #### [facility] [address] [place], [address] EST GFR - AA 77 mL/min Normal >60 [facility] Comment on above: Result Comment: Afri can [place]cu[place] GFR Calc Performed By: #### L 500.4050, L509.1000, L506.1000 #### [facility] [address] [place], [address] GAP 4 Low 5-15 [facility] Comment on above: Performed By: #### L 500.4050, L509.1000, L506.1000 #### [facility] [address] [place], [address] GFR/1.73 sq M.predicted among non-blacks MDRD (S/P/Bld) [Vol rate/Area] 64 mL/min/{1.73_m2} Normal >60 [facility] Comment on above: Result Comment: Non- GFR Calc Performed By: #### L 500.4050, L509.1000, L506.1000 #### [facility] [address] [place], [address] Globulin (S) [Mass/Vol] 3.2 g/dL Normal 2.2-4.2 [facility] Comment on above: Performed By: #### L 500.4050, L509.1000, L506.1000 #### [facility] [address] [place], [address] Glucose [Mass/Vol] 88 mg/dL Normal 74-106 [facility] Comment on above: Performed By: #### L 500.4050, L509.1000, L506.1000 #### [facility] [address] [place], [address] Potassium [Moles/Vol] 3.8 mmol/L Normal 3.5-5.1 [facility] Comment on above: Performed By: #### L 500.4050, L509.1000, L506.1000 #### [facility] [address] [place], [address] Sodium [Moles/Vol] 141 mmol/L Normal 136-145 [facility] Comment on above: Performed By: #### L 500.4050, L509.1000, L506.1000 #### [facility] [address] [place], [address] T PROT 6.8 g/dL Normal 6.4-8.2 [facility] Comment on above: Performed By: #### L 500.4050, L509.1000, L506.1000 #### [facility] [address] [place], [address] Urea nitrogen [Mass/Vol] 16 mg/dL Normal 7-18 [facility] Comment on above: Performed By: #### L 500.4050, L509.1000, L506.1000 #### [facility] [address] [place], [address] Estimated glomerular filtrat ion rate (GFR) AmericanOrdered By: Jared Padilla on 09-15-2024 Estimated GFR (MDRD) Amer 77 mL/min >60 [facility] Comment on above: GFR Calc Glomerular filtration rate ( GFR) estimationOrdered By: Jared Padilla on 09-15-2024 Estimated GFR (MDRD) Non-Af Amer 64 mL/min >60 [facility] Comment on above: Non- GFR Calc Glucose measurementOrdered B y: Jared Padilla on 09-15-2024 Glucose [Mass/Vol] 88 mg/dL 74-106 [facility] Intact parathyroid hormone ( iPTH) measurementOrdered By: Jared Padilla on 09-15-2024 Parathyroid Hormone (Intact) 30.1 pg/mL 18.4-80.1 [facility] L501.0895on 09-15-2024 Calcium [Mass/Vol] 9.2 mg/dL Normal 8.5-10.1 [facility] Comment on above: Performed By: #### L 501.5200, L501.0895 #### [facility] [address] [place], [place], [address] Laboratory - Chemistry and C hemistry - challengeOrdered By: Jared Padilla on 09-15-2024 AST [Catalytic activity/Vol] 22 U/L 15-37 [facility] Magnesiumon 09-15-2024 Magnesium [Mass/Vol] 2.4 mg/dL Normal 1.6-2.6 [facility] Comment on above: Performed By: #### L 501.5200, L501.0895 #### [facility] [address] [place], [address] Magnesium measurementOrdered By: Migdalia Dunlap on 09-15-2024 Magnesium [Mass/Vol] 2.4 mg/dL 1.6-2.6 [facility] PTHINon 09-15-2024 PTH 30.1 pg/mL Normal 18.4-80.1 [facility] Comment on above: Performed By: #### L 500.4050, L509.1000, L506.1000 #### [facility] [address] [place], [place], [address] Potassium measurementOrdered By: Jared Padilla on 09-15-2024 Potassium [Moles/Vol] 3.8 mmol/L 3.5-5.1 [facility] Serum anion gap measurementO rdered By: Jared Padilla on 09-15-2024 Anion gap [Moles/Vol] 4 mmol/L Low 5-15 [facility] Serum globulin measurementOr dered By: Jared Padilla on 09-15-2024 Globulin (S) [Mass/Vol] 3.2 g/dL 2.2-4.2 [facility] Serum or plasma alanine doll otransferase (ALT) measurementOrdered By: Jared Padilla on 09-15-2024 ALT [Catalytic activity/Vol] 46 U/L 16-61 [facility] Serum or plasma albumin keesha urement (mass/volume)Ordered By: Jared Padilla on 09-15-2024 Albumin [Mass/Vol] 3.6 g/dL 3.2-5.0 [facility] Serum or plasma alkaline marysol sphatase measurementOrdered By: Jared Padilla on 09-15-2024 ALP [Catalytic activity/Vol] 54 U/L 45-117 [facility] Serum or plasma calcium keesha urement (mass/volume)Ordered By: Migdalia Dunlap on 09-15-2024 Calcium [Mass/Vol] 9.2 mg/dL 8.5-10.1 [facility] Serum or plasma creatinine m easurement (mass/volume)Ordered By: Jared Padilla on 09-15-2024 Creatinine [Mass/Vol] 1.17 mg/dL 0.70-1.30 [facility] Comment on above: The validity of the calculated GFR & GFRAA in patients over 70 years has not been determined. Clinical correlation is essential. Serum or plasma urea nitroge n measurement (mass/volume)Ordered By: Jared Padilla on 09-15-2024 Urea nitrogen [Mass/Vol] 16 mg/dL 7-18 [facility] Sodium levelOrdered By: Jared Padilla on 09-15-2024 Sodium [Moles/Vol] 141 mmol/L 136-145 [facility] Total proteinOrdered By: Jonny Padilla on 09-15-2024 Protein [Mass/Vol] 6.8 g/dL 6.4-8.2 [facility] Vitamin D,25 Hydroxyon 09-15 Vitamin D 25-OH 28.8 ng/mL Normal [facility] Comment on above: Result Comment: Terrie min D 25(OH) Status Range Deficiency <20 ng/mL (50nmol/L) Insufficiency 20 - 30 ng/mL (50 - 75 nmol/L) Sufficiency 30 - 100 ng/mL (75 - 250 nmol/L) Toxicity >100 ng/mL (>250 nmol/L) Performed By: #### L 500.4050, L509.1000, L506.1000 #### [facility] [address] [place], [address] Calcium,Totalon 09-10-2024 CA,Total 10.1 mg/dL Normal 8.5-10.1 [facility] Comment on above: Performed By: #### L 500.2500, L100.0500 #### [facility] [address] [place], [place], [address] Intact parathyroid hormone ( iPTH) measurementOrdered By: Migdalia Dunlap on 09-10-2024 Parathyroid Hormone (Intact) 10.9 pg/mL Low 18.4-80.1 [facility] PTHINon 09-10-2024 PTH 10.9 pg/mL Low 18.4-80.1 [facility] Comment on above: Performed By: #### L 500.2500, L100.0500 #### [facility] [address] [place], [address] Serum or plasma calcium keesha urement (mass/volume)Ordered By: Migdalia Dunlap on 09-10-2024 Calcium [Mass/Vol] 10.1 mg/dL 8.5-10.1 [facility] Calcium,Totalon 09-03-2024 CA,Total 11.4 mg/dL High 8.5-10.1 [facility] Comment on above: Performed By: #### L 500.2500, L100.0500 #### [facility] [address] [place], [place], [address] Intact parathyroid hormone ( iPTH) measurementOrdered By: Kamaljit Koehler on 09-03-2024 Parathyroid Hormone (Intact) 6.7 pg/mL Low 18.4-80.1 [facility] PTHINon 09-03-2024 PTH 6.7 pg/mL Low 18.4-80.1 [facility] Comment on above: Performed By: #### L 500.2500, L100.0500 #### [facility] [address] [place], [address] Serum or plasma calcium keesha urement (mass/volume)Ordered By: Kamaljit Koehler on 09-03-2024 Calcium [Mass/Vol] 11.4 mg/dL High 8.5-10.1 [facility] Surgery Visit Reporton 09-03 Surgery Visit Report [facility] [address] [place], [place] [address] OFFICE VISIT Date of Service: 09/03/24 MR#: [id number] Acct: [id number] Name: YAHAIRA MORFIN Rep #: [id number] : 1945 Provider: Dr. Kamaljit sloan MD Age/Sex: 78/M Location: [facility] Status: Signed Intake Vital Signs 08/22/24 06:35 Height 5 ft 9 in Intake Visit Reasons: Parathyroidectomy DOS 08/22 Chief Complaint: parathyroidectomy DOS 08/22 Is patient in pain?: No Allergies No Known Allergies Allergy (Verified 09/03/24 10:12) Medications ???Medication ???Instructions ???Recorded ???Confirmed ???Type metoprolol tartrate 25 mg tablet 25 mg PO BID ##0 04/19/15 09/03/24 Rx aspirin 81 mg tablet,delayed 81 mg PO DAILY 09/03/23 09/03/24 History release rosuvastatin 40 mg tablet 40 mg PO DAILY 09/03/23 09/03/24 History ascorbic acid (vitamin C) 500 mg 500 mg PO DAILY 12/11/23 09/03/24 History capsule amlodipine 5 mg tablet 5 mg PO DAILY 12/27/23 09/03/24 History cholecalciferol (vitamin D3) 25 50 mcg PO DAILY 05/13/24 09/03/24 History mcg (1,000 unit) tablet omega 1-cqd-qpo-fish oil 1,200 mg 1 cap PO BID 05/13/24 09/03/24 History (144 mg-216 mg) capsule (Fish Oil) multivitamin (Daily Multi-Vitamin 1 tab PO DAILY 08/14/24 09/03/24 History tablet) calcitriol 0.25 mcg capsule 0.25 mcg PO DAILY 15 days #15 caps 08/22/24 09/03/24 Rx calcium 500 mg (as 2 tab PO BID 15 days #60 tabs 08/22/24 09/03/24 Rx carbonate)-vitamin D3 15 mcg (600 unit) tablet (Os-Adelso 500 + D3) Have you fallen in the past year?: No Subjective Details: Patient presents following parathyroidectomy x 2 on 08/22/2024. Since hospital discharge they have been doing well. They report no postoperative pain at this point. They have not experienced symptoms of numbness and tingling. They has no wound concerns and declare they just removed their Steri-Strips today. Current calcium supplementation regimen is 1 tablet of calcitriol and 2 tablets of calcium carbonate with vitamin D twice daily. They note that there was some super constipation first thing out of surgery but this improved. He also shares that he has decreased his calcium supplementation the last several days. Lastly he describes some fatiguing of his voice the first 3 days or so out of the operation but has not experienced any subsequent difficulty. Objective Details: Constitutional: Cooperative, appreciative Neck: Mild induration about cervical incision with no lingering tenderness, no redness, no drainage Coding Level of Care Code Global Post Op Diagnoses Status post parathyroidectomy Z98.890; Z90.89 Hypoparathyroidism after procedure E89.2 [facility] Medical History Wears hearing aid Wears dentures Wears glasses High cholesterol Non-smoker CPAP (continuous positive airway pressure) dependence Sleep apnea Cardiology follow-up encounter COVID-19 ( 09/2022) MARLYS on CPAP Vitamin D deficiency Atherosclerosis of coronary artery of [place] heart without angina pectoris Primary hyperparathyroidism History of deep vein thrombosis of lower extremity Kidney stones Condyloma acuminata Hyperlipidemia Hyperparathyroidism RLS (restless legs syndrome) Sleep apnea Dog bite DVT (deep venous thrombosis) Surgical History History of colonoscopy (06/02/20) History of coronary artery stent placement (04/22/03) s/p shrapnel removal S/P hernia repair Status post hemorrhoidectomy Family History Mother Breast cancer Alzheimer disease Sister Breast cancer Myocardial infarction Father Myocardial infarction Alcohol abuse Social History Smoking Status: Never smoker alcohol intake: never substance use type: does not use caffeine: Yes Type: coffee Number of servings: 2 Assessment and Plan (No Qualifiers) Assessment and Plan (1) Status post parathyroidectomy: Status: Acute Comment: Patient is 78-year-old male status post parathyroidectomy x 2 for double adenoma. He had an excellent biochemical result but did end up with some hypoparathyroidism postoperatively. He appears to be doing well in his recovery. We obtained results for directing his weaning of supplemental calcium and this did show oversupplementation suggesting return of parathyroid activity???however he is now hypercalcemic and this is blunting his PTH so that it is a lower value and then he left the hospital with. I recommend immediate de-escalation of supplementation with tighter interval rechecking. (2) Hypoparathyroidism after procedure: Status: Acute Plan: ??? Decrease calc (more content not included)... Normal [facility] Discharge Instructionon 08-06 Discharge Instruction [facility] Medical Records Department [address] [place] [address] Instructions for Home/Discharge Instructions 08/22/24 1209 MR#: [id number] Acct: [id number] Name: YAHAIRA MORFIN Rep #: [id number] : 1945 78 From: Kamaljit Koehler MD PCP: Dr. Elmer Gillette MD Status:DEP [facility] Discharge Instructions Diet Discharge Diet: No restrictions (However recommend a liquid to soft diet initially postoperatively) Activity Discharge Activity: May Not Drive (While it remains difficult to check blind spots quickly) May shower in (days): 2 Ice area for (Minutes): 20 Lifting Restrictions: No lifting greater than 15 pounds for 2 weeks after surgery Dressing / Incision Call your doctor if your incision/area has: Continuous Slow Oozing, Sudden Increased Bleeding, Increased Pain/ Swelling, Increased Redness and Swelling at the incision site Call your doctor if you observe: Numbness or Tingling Remove Dressing in: 2 days (Please leave Steri-Strips intact until they fall off spontaneously or are taken off at your follow-up visit) Cleanse incision/area with: Soap Water Follow Up Care Please Follow Up With: Kamaljit Koehler MD When: 7 days postop Test Results: Test results from this visit will be discussed in further detail at your follow-up appointment, if applicable. Discharge Plan Admission Primary Reason for Your Visit: Parathyroidectomy Attending Provider: Kamaljit Koehler Primary Care Provider: Elmer Gillette Chi Consulting Providers: Live Muñoz Instructions Print Language: Mongolian Discharge Orders/Prescriptions Prescriptions: New calcium carbonate-vitamin D3 [Os-Adelso 500 + D3] 500 mg-15 mcg (600 unit) tablet 2 tab PO BID 15 Days Qty: 60 0RF calcitriol 0.25 mcg capsule 0.25 mcg PO DAILY 15 Days Qty: 15 0RF Continued rosuvastatin 40 mg tablet 40 mg PO DAILY aspirin 81 mg tablet,delayed release (DR/EC) 81 mg PO DAILY omega 4-bmh-ric-fish oil [Fish Oil] 1,200 (144-216) mg capsule 1 cap PO BID ascorbic acid (vitamin C) 500 mg capsule 500 mg PO DAILY amlodipine 5 mg tablet 5 mg PO DAILY cholecalciferol (vitamin D3) 25 mcg (1,000 unit) tablet 50 mcg PO DAILY metoprolol tartrate 25 MG tablet 25 mg PO BID Qty: 0 0RF multivitamin [Daily Multi-Vitamin] Tablet 1 tab PO DAILY Other Ambulatory Orders: 12 Lead EKG (Routine) Timeframe: [id number] Location: None Selected Ordered By: Dr. Live Muñoz Referrals / Follow Up: Elmer Gillette Chi, MD [Primary Care Provider] - Disposition Disposition (needs filled in before D/C Order can be placed): Home, Self Care 08/22/24 4450 Kamaljit Koehler MD CC: Dr. Live Muñoz MD; Dr. Elmer Gillette MD Signed Normal [facility] Frozen Section (charge)on Frozen Section (charge) ------ ---- Patient Age/Sex Location Account Attending Physician ---- YAHAIRA MORFIN 78/M [facility] [id number] Dr. Kamaljit Koehler MD ---- Specimen: [id number] Received: 08/22/24 Status: KENDRA Roach Num: [id number] Spec Type: PARATHY Subm Dr: Dr. Kamaljit Koehler MD HEADER OPERATION: Parathyroidectomy with IONM and PTH monitoring PRE-OP DIAGNOSIS: Primary hyperparathyroidism TISSUE SUBMITTED: A- Right inferior parathyroid, B- Right superior parathyroid, C- Left inferior parathyroid gland ---- FROZEN SECTION DIAGNOSIS A. Right inferior parathyroid gland, excision: Hyperplastic parathyroid gland (822mg). B. Right superior parathyroid tissue, biopsy: Parathyroid tissue (0.001gm). C. Left inferior parathyroid gland, excision: Hyperplastic parathyroid gland (0.188gm). . 08/22/2024 MICROSCOPIC DIAGNOSIS A. Right inferior parathyroid gland, excision: Hyperplastic parathyroid gland tissue (822mg). See comment. B. Right superior parathyroid gland, biopsy: Unremarkable parathyroid tissue (0.001gm). C. Left inferior parathyroid gland, excision: Hyperplastic parathyroid gland tissue (0.188gm). . 08/25/2024 COMMENT A. Unremarkable parathyroid tissue is also noted at the periphery of the hyperplastic parathyroid gland tissue. Findings may represent parathyroid adenoma. MICROSCOPIC DESCRIPTION Slides are reviewed. ---- Patient Age/Sex Location Account Attending Physician ---- YAHAIRA MORFIN 78/M [facility] [id number] Dr. Kamaljit Koehler MD ---- GROSS DESCRIPTION A. Received fresh for frozen section diagnosis labeled with the patient's name is a specimen designated Right inferior parathyroid. The specimen consists of a pinkish-brown piece of nodular tissue weighing 0.822 gm and measuring 1.8 x 1.0 x 0.7cm. The specimen is bisected, and one half of the specimen is submitted for frozen section diagnosis. Rest of the specimen is submitted in cassette 2. B. Received fresh for frozen section diagnosis labeled with the patient's name is a specimen designated Right superior parathyroid. The specimen consists of a piece of crockett-pink soft tissue weighing 0.001gm and measuring 0.1cm in greatest dimension. The entire specimen is submitted for frozen section diagnosis. C. Received fresh for frozen section diagnosis labeled with the patient's name is a specimen designated Right inferior parathyroid. The specimen consists of a pinkish-brown piece of nodular tissue weighing 0.188gm and measuring 1.5 x 0.5 x 0.3cm. The entire specimen is submitted for frozen section diagnosis in one cassette. MARTINEIon 08/22/2024 TC:[id number] ---- Patient Age/Sex Location Account Attending Physician ---- YAHAIRA MORFIN 78/M [facility] [id number] Dr. Kamaljit Koehler MD ---- Signed (signature on file) Dr. Jay Olivera MD 08/25/24 1309 ---- Normal [facility] Comment on above: Performed By: #### L 500.2500, L100.0500 #### [facility] [place] [place], [id number] Intact parathyroid hormone ( iPTH) measurementOrdered By: Kamaljit Koehler on 08-22-2024 Parathyroid Hormone (Intact) 9.2 pg/mL Low 18.4-80.1 [facility] MR/POSTOP.ANEon 08-22-2024 MR/POSTOP.ANE [facility] Medical Records Department [address] [place] [address] Anesthesia Postop Eval I 08/22/24 1217 MR#: [id number] Acct: [id number] Name: YAHAIRA MORFIN Rep #: [id number] : 1945 78 From: Neha Cardona CRNA PCP: Dr. Elmer Gillette MD Status:REG SDC Y Race: C Location: [place] [address] Anesthesia: Postop Eval I Current Vital Signs Temperature: 98 F Pulse Rate: 93 Blood Pressure: 147/78 Respiratory Rate: 22 Pulse Ox: 98 Oxygen Delivery Method: Room Air Assessment Airway patent: Yes Spontaneous unlabored respirations: Yes Mental status: Asleep nausea: No Vomiting: No Anesthesia Complication: No Fluid Hydration Crystalloid volume administer (ml): 1,400 Total IV fluid infused: 1,400 Progress Note Anesthesia document: Postop Eval 1 completed: Yes 08/22/24 1218 Date Neha Colbertigner Signature: Date CC: Signed Normal [facility] MR/[id number] 08-22-2024 MR/POSTOPAN2 [facility] Medical Records Department [address] [place] [address] Anesthesia Postop Eval II 08/22/24 1241 MR#: [id number] Acct: [id number] Name: BETOYAHAIRA Mena Rep #: [id number] : 1945 78 From: Kael Melissa MD PCP: Dr. Elmer Gillette MD Status:REG SDC Y Race: C Location: [place] [address] Anesthesia Postop Eval I Sum Postop Eval Completion status Anesthesia document: Postop Eval 1 completed: Yes Anesthesia Postop Eval I Summary Anesthesia Postop Eval I Summary: Anesthesia Postop Eval I: Assessment Summary Airway patent Yes 08/22/24 12:18 HULLER [email or web address] Spontaneous unlabored Yes 08/22/24 12:18 HULLER OPERATOR.[email or web address] respirations Mental status Asleep 08/22/24 12:18 HULLER [email or web address] nausea No 08/22/24 12:18 HULLER OPERATOR.[email or web address] Vomiting No 08/22/24 12:18 HULLER OPERATOR.[email or web address] Anesthesia Postop Eval I: Fluid Summary Crystalloid volume administer 1,400 08/22/24 12:18 HULLER [email or web address].JSWI (ml) Colloids volume administered ( ml) Blood Product volume administered (ml) Total IV fluid infused 1,400 08/22/24 12:18 HULLER [email or web address].JSWI Anesthesia Postop Eval I: Summary Notes Anesthesia Complication No 08/22/24 12:18 HULLER OPERATOR.[email or web address] Anesthesia Complication Comment: Post-operative progress note Anesthesia: Postop Eval II Evaluation Mental status: Awake and Calm Pain Level: 1 nausea: No Vomiting: No Complications Anesthesia Complication: No 08/22/24 1242 Date Kael Melissa MD Cosigner Signature: Date CC: Signed Normal [facility] Operative Reporton 5 Operative Report [facility] Medical Records Department [address] [place] [address] Operative Report 08/22/24 1206 MR#: [id number] Acct: [id number] Name: YAHAIRA MORFIN Rep #: [id number] : 1945 78 From: Kamaljit Koehler MD PCP: Dr. 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 Surgery/Procedure Performed: Parathyroidectomy (x 2) with intraoperative nerve and PTH monitoring real estate executive assistant: Yes Music Librarian: Gabi Ferris Tasks completed by ambulance assistant: Opening closing and Retracting Type of Anesthesia: General/Supplemental RN Documented Start/Stop Times: Operation Date: 08/22/24 07:30 Case Time Into Pre-Op 08/22/24 06:16 Anesthesia Start 08/22/24 07:30 Into Room 08/22/24 07:30 Procedure Start 08/22/24 08:18 Procedure End 08/22/24 12:04 Anesthesia End 08/22/24 12:10 Out of Room 08/22/24 12:10 Into Recovery 08/22/24 12:12 Out of Recovery 08/22/24 13:28 Into Phase II Recovery 08/22/24 13:34 Out of Phase II 08/22/24 16:08 Procedure Start Time: 08:18 Procedure Stop Time: 12:04 Select all DRAINS/GRAFTS/IMPLANTS that apply: None Estimated Blood Loss: 25 Specimen collected: Yes Description of specimen(s) removed: 1. Right inferior parathyroid 2. Rule out right superior parathyroid for frozen section 3. Left inferior parathyroid Description of surgery: After appropriate identification in the preoperative holding area the patient was brought to the operating room where he was positioned supine on the operating room table. There he was induced with general endotracheal anesthetic. Of note, a preoperative PTH had been obtained and was reported as 159. Patient was then intubated using a Nims tube and glidescope to ensure coaptation between the vocal cords and the Nims tube electrodes. A resistance check confirmed appropriate function of the tube after the electrodes were properly connected to the monitoring box. Patient was then positioned in cervical extension, but adequately supporting the occiput. Bedside ultrasound was used to identify the hypoechoic area of interest inferior and posterior to the inferior pole of the right thyroid lobe. Patient was prepped and draped in the usual sterile fashion and a formal timeout followed to confirm patient and the procedure to be performed. A local block was produced with infiltration of local anesthetic and a 4cm transverse incision was made. This was deepened with the use of electrocautery through the platysma. Ultimately the strap muscles were exposed and were from one another as I proceeded with dissection laterally towards the patient's right internal jugular vein. Once this structure was sufficiently exposed I obtained a baseline central vein PTH level. This ultimately returned at 241. For the interim I returned to the patient's neck and the 2 heads of the sternothyroid muscle were divided along their raphe with electrocautery. I then used blunt dissection to free the sternothyroid muscle from the thyroid capsule of the right thyroid lobe deeply. With this exposure I elevated the infant pole of the right thyroid lobe. It became immediately apparent that patient had a large parathyroid gland located just deeply and inferiorly to this pole. Careful blunt dissection was employed to free the structure from its surrounding soft tissue attachments it was then circumferentially freed so that it remained suspended by its vascular pole only. At this point a medium titanium clip was placed across the pole and the gland was sharply amputated free. This specimen was passed off the field for frozen section confirmation. (Later, pathology telephoned the room to notify us that indeed this represented a large parathyroid gland weighing 822 mg). As we awaited this result, I irrigated the surgical cavity with sterile water and examined for hemostasis. Finding this intact, I also developed the plane between the thyroid capsule and the strap muscles to try to identify the second parathyroid gland on this side. The tracheoesophageal groove was also developed bluntly and I confirmed an intact signal from our right recurrent laryngeal nerve using our Nims monitor. Right internal jugular ex vivo blood draws were made with a 22-gauge needle and syringe at 10 and 15 minutes were 95.3 and 91.6, respectively. Although this represented a drop in our initial PTH value it did not satisfy criteria for a cure and thus I obtained 1 additional sample from the right internal jugular vein to effectively exclude the possibility of a delayed fall as I proceeded to further develop my dissection along the superior aspect of patient's right thyroid lobe to identif (more content not included)... Normal [facility] PTHINon 08-22-2024 PTH 9.2 pg/mL Low 18.4-80.1 [facility] Comment on above: Performed By: #### L 500.4050, L509.1000, L506.1000 #### [facility] [address] [place], [address] PTH 17.2 pg/mL Low 18.4-80.1 [facility] Comment on above: Performed By: #### L 509.1000 #### [facility] [address] [place], [address] PTH 19.6 pg/mL Normal 18.4-80.1 [facility] Comment on above: Performed By: #### L 500.2500, L100.0500 #### [facility] [address] [place], [address] PTH 71.2 pg/mL Normal 18.4-80.1 [facility] Comment on above: Performed By: #### L 500.2500, L100.0500 #### [facility] [address] [place], [address] PTH 91.6 pg/mL High 18.4-80.1 [facility] Comment on above: Performed By: #### L 500.4050, L509.1000, L506.1000 #### [facility] [address] [place], [address] PTH 95.3 pg/mL High 18.4-80.1 [facility] Comment on above: Performed By: #### L 500.4050, L509.1000, L506.1000 #### [facility] [address] [place], [address] PTH 241.0 pg/mL High 18.4-80.1 [facility] Comment on above: Performed By: #### L 500.4050, L509.1000, L506.1000 #### [facility] [address] [place], [address] PTH 159.0 pg/mL High 18.4-80.1 [facility] Comment on above: Order Comment: PERRY D @MADE UP. SPOKE WITH SURGERY(MELLISA?) AT 730 TO [facility] KNOW OF @DELAY. SHE SAID IT WAS OK THEY JUST WANTED APRE-OP PTH. Performed By: #### L 500.4050, L509.1000, L506.1000 #### [facility] [address] [place], [place], [address] 12 Lead EKGon 08-15-2024 12 Lead EKG [facility] Cardiovascular Services [address] [place] [address] 12 Lead EKG 08/15/24 0751 MR#: [id number] Acct: [id number] Name: YAHAIRA MORFIN Rep #: [id number] : 1945 78 From: Kamaljit Hendricks MD Attending Dr: Dr. Kamaljit Koehler MD Status: PRE [facility] Ordering Dr: Live Muñoz MD Date: 08/15/24 Location: [facility] Sex: M C Admitted: Test Reason : PREOP Blood Pressure : */* mmHG Vent. 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 Live Muñoz MD; Dr. Kamaljit Koehler MD; Dr. Elmer Gillette MD Signed Normal [facility] Basic Metabolic Profile (BMP )on 08-15-2024 BUN/CRE 15.5 RATIO Normal 10-20 [facility] Comment on above: Performed By: #### L 500.2500, L100.0500 #### [facility] [address] [place], [address] CA,Total 11.1 mg/dL High 8.5-10.1 [facility] Comment on above: Performed By: #### L 500.2500, L100.0500 #### [facility] [address] [place], [address] Chloride [Moles/Vol] 110 mmol/L High 98-107 [facility] Comment on above: Performed By: #### L 500.2500, L100.0500 #### [facility] [address] [place], [address] CO2 [Moles/Vol] 26.0 mmol/L Normal 21.0-32.0 [facility] Comment on above: Performed By: #### L 500.2500, L100.0500 #### [facility] [address] [place], [address] Creatinine [Mass/Vol] 1.29 mg/dL Normal 0.70-1.30 [facility] Comment on above: Result Comment: The validity of the calculated GFR GFRAA in patients over 70 years has not been determined. Clinical correlation is essential. Performed By: #### L 500.2500, L100.0500 #### [facility] [address] [place], [address] EST GFR - AA 69 mL/min Normal >60 [facility] Comment on above: Result Comment: Afri can Ecuadorean GFR Calc Performed By: #### L 500.2500, L100.0500 #### [facility] [address] [place], [address] GAP 2 Low 5-15 [facility] Comment on above: Performed By: #### L 500.2500, L100.0500 #### [facility] [address] [place], [address] GFR/1.73 sq M.predicted among non-blacks MDRD (S/P/Bld) [Vol rate/Area] 57 mL/min/{1.73_m2} Low >60 [facility] Comment on above: Result Comment: Non- GFR Calc Performed By: #### L 500.2500, L100.0500 #### [facility] [address] [place], [address] Glucose [Mass/Vol] 134 mg/dL High 74-106 [facility] Comment on above: Result Comment: Fast ing Glucose result greater than or equal to 126 mg/dL suggests DIABETES MELLITUS per A.D.A. criteria. Performed By: #### L 500.2500, L100.0500 #### [facility] [address] [place], [address] Potassium [Moles/Vol] 4.6 mmol/L Normal 3.5-5.1 [facility] Comment on above: Performed By: #### L 500.2500, L100.0500 #### [facility] [address] [place], [address] Sodium [Moles/Vol] 139 mmol/L Normal 136-145 [facility] Comment on above: Performed By: #### L 500.2500, L100.0500 #### [facility] [address] [place], [address] Urea nitrogen [Mass/Vol] 20 mg/dL High 7-18 [facility] Comment on above: Performed By: #### L 500.2500, L100.0500 #### [facility] [address] [place], [address] Blood urea nitrogen (BUN)/cr eatinine ratioOrdered By: Live Muñoz on 08-15-2024 Urea nitrogen/Creatinine [Mass ratio] 15.5 mg/mg 10-20 [facility] CBC-Complete Blood Cnt No Di ffon 08-15-2024 Erythrocyte distribution width (RBC) [Ratio] 12.8 % Normal 11.6-14.6 [facility] Comment on above: Performed By: #### L 500.2500, L100.0500 #### [facility] [address] [place], [address] Hematocrit (Bld) [Volume fraction] 50.6 % Normal 40-54 [facility] Comment on above: Performed By: #### L 500.2500, L100.0500 #### [facility] [address] [place], [address] Hemoglobin (Bld) [Mass/Vol] 16.6 g/dL High 13.0-16.5 [facility] Comment on above: Performed By: #### L 500.2500, L100.0500 #### [facility] [address] [place], [address] MCH (RBC) [Entitic mass] 31.6 pg Normal 27.0-32.0 [facility] Comment on above: Performed By: #### L 500.2500, L100.0500 #### [facility] [address] [place], [address] MCHC (RBC) [Mass/Vol] 32.8 g/dL Normal 32-36 [facility] Comment on above: Performed By: #### L 500.2500, L100.0500 #### [facility] [address] [place], [address] MCV (RBC) [Entitic vol] 96.4 fL High 80-94 [facility] Comment on above: Performed By: #### L 500.2500, L100.0500 #### [facility] [address] [place], [address] Platelet mean volume (Bld) [Entitic vol] 9.3 fL Normal 6.2-12.0 [facility] Comment on above: Performed By: #### L 500.2500, L100.0500 #### [facility] [address] [place], [address] Platelets (Bld) [#/Vol] 179 10*3/uL Normal 150-450 [facility] Comment on above: Performed By: #### L 500.2500, L100.0500 #### [facility] [address] [place], [address] RBC (Bld) [#/Vol] 5.25 10*6/uL Normal 4.6-6.2 [facility] Comment on above: Performed By: #### L 500.2500, L100.0500 #### [facility] [address] [place], [address] RDW SD 45.4 fl High 35.1-43.9 [facility] Comment on above: Performed By: #### L 500.2500, L100.0500 #### [facility] [address] [place], [address] WBC (Bld) [#/Vol] 5.8 10*3/uL Normal 4.4-11.0 [facility] Comment on above: Performed By: #### L 500.2500, L100.0500 #### [facility] [address] [place], [address] Carbon dioxide measurementOr dered By: Live Muñoz on 08-15-2024 CO2 [Moles/Vol] 26.0 mmol/L 21.0-32.0 [facility] Chloride measurementOrdered By: Live Muñoz on 08-15-2024 Chloride [Moles/Vol] 110 mmol/L High 98-107 [facility] Erythrocyte distribution wid th ratioOrdered By: Live Muñoz on 08-15-2024 Erythrocyte distribution width (RBC) [Ratio] 12.8 % 11.6-14.6 [facility] Erythrocyte distribution wid th standard deviationOrdered By: Live Muñoz on 08-15-2024 Erythrocyte distribution width (RBC) [Entitic vol] 45.4 fL High 35.1-43.9 [facility] Estimated glomerular filtrat ion rate (GFR) AmericanOrdered By: Live Muñoz on 08-15-2024 Estimated GFR (MDRD) Amer 69 mL/min >60 [facility] Comment on above: GFR Calc Glomerular filtration rate ( GFR) estimationOrdered By: Live Muñoz on 08-15-2024 Estimated GFR (MDRD) Non-Af Amer 57 mL/min Low >60 [facility] Comment on above: Non- GFR Calc Glucose measurementOrdered B y: Live Muñoz on 08-15-2024 Glucose [Mass/Vol] 134 mg/dL High 74-106 [facility] Comment on above: Fasting Glucose resu lt greater than or equal to 126 mg/dL suggests DIABETES MELLITUS per A.D.A. criteria. Hematocrit Auto (Bld) [Volum e fraction]Ordered By: Live Muñoz on 08-15-2024 Hematocrit (Bld) [Volume fraction] 50.6 % 40-54 [facility] Hemoglobin measurementOrdere d By: Live Muñoz on 08-15-2024 Hemoglobin (Bld) [Mass/Vol] 16.6 g/dL High 13.0-16.5 [facility] MCV (mean corpuscular volume ) determinationOrdered By: Live Muñoz on 08-15-2024 MCV (RBC) [Entitic vol] 96.4 fL High 80-94 [facility] Mean corpuscular hemoglobin (MCH) determinationOrdered By: Live Muñoz on 08-15-2024 MCH (RBC) [Entitic mass] 31.6 pg 27.0-32.0 [facility] Mean corpuscular hemoglobin concentration (MCHC) determinationOrdered By: Live Muñoz on 08-15-2024 MCHC (RBC) [Mass/Vol] 32.8 g/dL 32-36 [facility] Mean platelet volume determi nationOrdered By: Live Muñoz on 08-15-2024 Platelet mean volume (Bld) [Entitic vol] 9.3 fL 6.2-12.0 [facility] PTHINon 08-15-2024 PTH 149.1 pg/mL High 18.4-80.1 [facility] Comment on above: Performed By: #### L 500.4050, L509.1000, L506.1000 #### [facility] [address] [place], [address] Platelet countOrdered By: Salvador Muñoz on 08-15-2024 Platelets (Bld) [#/Vol] 179 10*3/uL 150-450 [facility] Potassium measurementOrdered By: Live Muñoz on 08-15-2024 Potassium [Moles/Vol] 4.6 mmol/L 3.5-5.1 [facility] RBC Auto (Bld) [#/Vol]Ordere d By: Live Muñoz on 08-15-2024 RBC (Bld) [#/Vol] 5.25 10*6/uL 4.6-6.2 [facility] Serum anion gap measurementO rdered By: Live Muñoz on 08-15-2024 Anion gap [Moles/Vol] 2 mmol/L Low 5-15 [facility] Serum or plasma calcium keesha urement (mass/volume)Ordered By: Live Muñoz on 08-15-2024 Calcium [Mass/Vol] 11.1 mg/dL High 8.5-10.1 [facility] Serum or plasma creatinine m easurement (mass/volume)Ordered By: Live Muñoz on 08-15-2024 Creatinine [Mass/Vol] 1.29 mg/dL 0.70-1.30 [facility] Comment on above: The validity of the calculated GFR & GFRAA in patients over 70 years has not been determined. Clinical correlation is essential. Serum or plasma urea nitroge n measurement (mass/volume)Ordered By: Live Muñoz on 08-15-2024 Urea nitrogen [Mass/Vol] 20 mg/dL High 7-18 [facility] Sodium levelOrdered By: Live Muñoz on 08-15-2024 Sodium [Moles/Vol] 139 mmol/L 136-145 [facility] White blood cell (WBC) count Ordered By: Live Muñoz on 08-15-2024 WBC (Bld) [#/Vol] 5.8 10*3/uL 4.4-11.0 [facility] MR/PAT.ANEon 08-14-2024 MR/PAT.LUC [facility] Medical Records Department [address] [place] [address] PAT - Anesthesia 08/14/24 1434 MR#: [id number] Acct: [id number] Name: YAHAIRA MORFIN Rajesh Rep #: [id number] : 1945 78 From: Live Muñoz MD PCP: Dr. Elmer Gillette MD Status:PRE SDC Y Race: C Location: [facility] [place] ADDENDUM by Dr. 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 When Was Last Pacemaker Check QUESTION #4 FULL TEXT: You/Your Family Experience fever (hyperthermia) with Anesthesia Last Oral Intake Last Oral intake: Last Oral Intake NPO since Meds taken in AM with sips of water? 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 Female No 08/14/24 13:38 HX of Motion Sickness No 08/14/24 13:38 HX of N/V After Surgery No 08/14/24 13:38 Non-Smoker Yes 08/14/24 13:38 Duration of Surgery greater No 08/14/24 13:38 than 60 minutes Number of Risk Factors 1 08/14/24 13:38 PONV Score Low Risk 08/14/24 13:38 Height Weight Height Weight: Anesthesia: Height Weight Height 5 ft 9 in 08/01/24 08:11 Respiratory Assessment Respiratory Assessment - splicer machine operator: Respiratory Tract Infection Hx - splicer machine operator Hx Respiratory Tract Infection No 08/14/24 13:38 STOP Sleep Apnea STOP Sleep Apnea - splicer machine operator: STOP Sleep Apnea - splicer machine operator Hx Hypertension Yes 08/14/24 13:38 Hx Sleep Apnea Yes 08/14/24 13:38 CPAP Yes 08/14/24 13:38 BIPAP No 08/14/24 13:38 Do you snore loudly (louder than talking or can be heard Do you often feel tired/ fatigued/ sleepy during daytime? Has anyone observed you stop breathing during sleep? STOP Results Positive 08/14/24 13:38 QUESTION #5 FULL TEXT : Do you snore loudly (louder than talking or can be heard through closed doors)? 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 Specify any problems Hx of Preganancy in last 3 N/A 08/14/24 13:38 Months Nurse Filling Out Transfusion [facility] 08/14/24 13:38 Questions: Date: 08/14/24 08/14/24 13:38 Time: 13:45 08/14/24 13:38 Patient unable to answer at this time (ie. confused, unrespo /Reproduction History /Reproductive History - splicer machine operator: /Reproductive Hx- splicer machine operator Hx Now Gestational Age (in weeks): EDC: Hx Hx Para Hx Section SAB No 12/06/21 14:57 PFSH Medical History (Updated 08/14/24 @ 13:45 by Edilia Galloway) Wears hearing aid Wears dentures Wears glasses High cholesterol Non-smoker CPAP (continuous positive airway pressure) dependence Sleep apnea Cardiology follow-up encounter COVID-19 ( 09/2022) MARLYS on CPAP Vitamin D deficiency Atherosclerosis of coronary artery of [place] heart without angina pectoris Primary hyperparathyroidism History of deep vein thrombosis of lower extremity Kidney stones Condyloma acuminata Hyperlipidemia Hyperparathyroidism RLS (restless legs syndrome) Sleep apnea Dog bite DVT (deep (more content not included)... Normal [facility] Surgery Visit Reporton 08-01 Surgery Visit Report [facility] [address] [place] [address] OFFICE VISIT Date of Service: 08/01/24 MR#: [id number] Acct: [id number] Name: YAHAIRA MORFIN Rep #: [id number] : 1945 Provider: Dr. Kamaljit sloan MD Age/Sex: 78/M Location: [facility] Status: Signed Intake Vital Signs 06/10/24 12:58 08/01/24 08:11 Height 5 ft 9 in 5 ft 9 in Weight: 195 lb 193 lb BMI 28.8 28.5 BP 143/74 H 162/69 H Blood Pressure Location Rt brachial Rt brachial Position Sitting Sitting Respiration 18 16 Intake Visit Reasons: DISCUSS SURGERY Chief Complaint: discuss results and surgery [employer] Required: No Is patient in pain?: No Allergies No Known Allergies Allergy (Verified 08/01/24 08:11) Medications ???Medication ???Instructions ???Recorded ???Confirmed ???Type metoprolol tartrate 25 mg tablet 25 mg PO BID ##0 04/19/15 08/01/24 Rx aspirin 81 mg tablet,delayed 81 mg PO DAILY 09/03/23 08/01/24 History release rosuvastatin 40 mg tablet 40 mg PO DAILY 09/03/23 08/01/24 History zoledronic acid 5 mg/100 mL in 1 ea .Route ONCE #100 mL 11/05/23 08/01/24 Rx mannitol 5 %-water intravenous piggybck ascorbic acid (vitamin C) 500 mg mg PO 12/11/23 08/01/24 History capsule amlodipine 5 mg tablet 5 mg PO DAILY 12/27/23 08/01/24 History cholecalciferol (vitamin D3) 25 50 mcg PO DAILY 05/13/24 08/01/24 History mcg (1,000 unit) tablet omega 9-zji-yff-fish oil 1,200 mg cap PO BID 05/13/24 08/01/24 History (144 mg-216 mg) capsule (Fish Oil) Have you fallen in the past year?: No PFSH Medical History COVID-19 ( 09/2022) AMRLYS on CPAP Vitamin D deficiency Atherosclerosis of coronary artery of [place] heart without angina pectoris Primary hyperparathyroidism History of deep vein thrombosis of lower extremity Kidney stones Condyloma acuminata Hyperlipidemia Hyperparathyroidism RLS (restless legs syndrome) Sleep apnea Dog bite DVT (deep venous thrombosis) Surgical History History of colonoscopy (06/02/20) History of coronary artery stent placement (04/22/03) s/p shrapnel removal S/P hernia repair Status post hemorrhoidectomy Family History Mother Breast cancer Alzheimer disease Sister Breast cancer Myocardial infarction Father Myocardial infarction Alcohol abuse Social History Smoking Status: Never smoker alcohol intake: never substance use type: does not use caffeine: Yes Type: coffee Number of servings: 2 HPI HPI HPI: Patient is a 78-year-old male who presents for hyperparathyroidism. Patient presents today with his . He initially denies any significant health updates but later in the encounter, offhandedly, mentions that he was diagnosed with kidney stones a couple weeks ago. He shares that they are presently asymptomatic. In the interim since his last visit Mr. Morfin completed a SPECT-CT with sestamibi 07/17/2024 with the following result: 1. ABNORMAL 99m Tc SESTAMIBI [id number] PARATHYROID IMAGING DUAL PHASE EXAMINATION. 2. 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 Below is recapitulated from patient's consultation visit that was made 06/10/2024: Patient is a 78-year-old male who presents for hyperparathyroidism. They are referred from Dr. Jared Padilla. Patient has a history of osteoporosis with a T-score of -2.6 from study performed 10/25/2023. Patient has no history of pathologic fractures (notes a remote left broken arm 40 to 50 years ago). Patient has a history of kidney stones over several episodes. Patient has a history of frequent dental caries or chipped teeth and shares that he had the remainder of his teeth removed 3 years ago and now proceeds with 2 plates. Patient has no history of brittle fingernails. Patient has no history of GERD. Patient has a history of hypertension. 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 Patient has a history of prior radiation exposure which she states was related to his time in the [employer] but insist that appropriate PPE was always used per OSHA. Patient has no family history of other endocrinopathies Patient does not have a diet high in dairy???citing limited intake of cheese and ice cream (more content not included)... Normal [facility] Parathyroid SPECT w/ CONCUR CTon 07-17-2024 Parathyroid SPECT w/ CONCUR CT [facility] Imaging Services [address] [place] [address] [id number] Parathyroid SPECT w/ CONCUR CT MR#: [id number] Acct: [id number] Name: YAHAIRA MORFIN Rep #: [id number] : 1945 M 78 From: Sae Stiles PCP: Dr. Elmer Gillette MD Status: [facility] Study: Parathyroid SPECT w/ CONCUR CT Date of Exam: 09/17/23 Exam# [id number] Ordering Dr: Kamaljit Koehler [place] [id number] CLINICAL: 78-year-old male with clinical hyperparathyroidism. 99m Tc SESTAMIBI DUAL PHASE PLANAR and SPECT-CT PARATHYROID SCINTIGRAPHY COMPARISON: Thyroid ultrasound report 05/25/2024 FINDINGS: Following the intravenous administration of 27.0 mCi of 99m Tc sestamibi, planar image acquisitions of the anterior neck at 15 minutes and 3.0 hours post radiopharmaceutical provision and SPECT-CT reconstructions obtained at 3.0 reveal: 1. Immediate static blood pool acquisitions demonstrate distribution of the radiopharmaceutical in the right and left thyroid colloid most accentuated in the inferior pole of the right lobe. 2. Delayed planar images depict near complete washout of the radiopharmaceutical from the left lobe and superior pole right lobe thyroid parenchyma. There is persistent visualization of uptake in the inferior pole of the right lobe. Emission computed tomographic reconstructions of the anterior neck reveal confirmation of the planar projection findings. NM/Parathyroid SPECT w/ CONCUR CT IMPRESSION: 1. ABNORMAL 99m Tc SESTAMIBI [id number] PARATHYROID IMAGING DUAL PHASE EXAMINATION. 2. 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 Electronically Signed: Sae Anderson DO at 10:39 EST , CC: Dr. Kamaljit Koehler MD; Dr. Elmer Gillette MD Coil Taper: Signed Normal [facility] Influenza virus A and B and SARS-CoV-2 (COVID-19) and Respiratory syncytial virus RNAOrdered By: Elmer Gillette on 06-13-2024 SARS-CoV-2 (COVID-19) RNA SUHAIL+probe Ql (Unsp spec) [facility] M100.678on 06-13-2024 M100.678 Pending SARS-CoV-2 (COVID 19) Negative INFLUENZA A Negative INFLUENZA B Negative RSV PCR Negative Normal [facility] Comment on above: Performed By: #### L 500.2500, L100.0500 #### [facility] [address] [place], [address] Surgery Visit Reporton 06-10 Surgery Visit Report [facility] [address] [place] [address] OFFICE VISIT Date of Service: 06/10/24 MR#: [id number] Acct: [id number] Name: YAHAIRA MORFIN Rep #: [id number] : 1945 Provider: Dr. Kamaljit sloan MD Age/Sex: 78/M Location: [facility] Status: Signed Intake Vital Signs 05/13/24 07:55 06/10/24 12:58 Height 5 ft 9 in 5 ft 9 in Weight: 194 lb 6 oz 195 lb BMI 28.7 28.8 BP 129/74 H 143/74 H Blood Pressure Location Rt brachial Rt brachial Position Sitting Sitting Respiration 18 Pulse 62 Pulse Source Monitor Pulse Oximetry (%) 97 Oxygen Delivery Method room air Intake Visit Reasons: HYPER PARATHYROIDISM Chief Complaint: Primary hyperparathyroidism/rakesh ne [employer] Required: No Is patient in pain?: No Allergies No Known Allergies Allergy (Verified 06/10/24 12:59) Medications ???Medication ???Instructions ???Recorded ???Confirmed ???Type metoprolol tartrate 25 mg tablet 25 mg PO BID ##0 04/19/15 06/10/24 Rx aspirin 81 mg tablet,delayed 81 mg PO DAILY 09/03/23 06/10/24 History release rosuvastatin 40 mg tablet 40 mg PO DAILY 09/03/23 06/10/24 History zoledronic acid 5 mg/100 mL in 1 ea .Route ONCE #100 mL 11/05/23 06/10/24 Rx mannitol 5 %-water intravenous piggybck ascorbic acid (vitamin C) 500 mg mg PO 12/11/23 06/10/24 History capsule amlodipine 5 mg tablet 5 mg PO DAILY 12/27/23 06/10/24 History cholecalciferol (vitamin D3) 25 50 mcg PO DAILY 05/13/24 06/10/24 History mcg (1,000 unit) tablet omega 7-bmd-dwa-fish oil 1,200 mg cap PO BID 05/13/24 06/10/24 History (144 mg-216 mg) capsule (Fish Oil) Have you fallen in the past year?: No PFSH Medical History COVID-19 ( 09/2022) MARLYS on CPAP Vitamin D deficiency Atherosclerosis of coronary artery of [place] heart without angina pectoris Primary hyperparathyroidism History of deep vein thrombosis of lower extremity Kidney stones Condyloma acuminata Hyperlipidemia Hyperparathyroidism RLS (restless legs syndrome) Sleep apnea Dog bite DVT (deep venous thrombosis) Surgical History History of colonoscopy (06/02/20) History of coronary artery stent placement (04/22/03) s/p shrapnel removal S/P hernia repair Status post hemorrhoidectomy Family History Mother Breast cancer Alzheimer disease Sister Breast cancer Myocardial infarction Father Myocardial infarction Alcohol abuse Social History Smoking Status: Never smoker alcohol intake: never substance use type: does not use caffeine: Yes Type: coffee Number of servings: 2 HPI HPI HPI: Patient is a 78-year-old male who presents for hyperparathyroidism. They are referred from Dr. Jared Padilla. Patient has a history of osteoporosis with a T-score of -2.6 from study performed 10/25/2023. Patient has no history of pathologic fractures (notes a remote left broken arm 40 to 50 years ago). Patient has a history of kidney stones over several episodes. Patient has a history of frequent dental caries or chipped teeth and shares that he had the remainder of his teeth removed 3 years ago and now proceeds with 2 plates. Patient has no history of brittle fingernails. Patient has no history of GERD. Patient has a history of hypertension. 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 Patient has a history of prior radiation exposure which she states was related to his time in the [employer] business but insist that appropriate PPE was always used per OSHA. Patient has no family history of other endocrinopathies Patient does not have a diet high in dairy???citing limited intake of cheese and ice cream. Patient's current labs are calcium: Calcium is 12.1 mg/dL 05/02/2024 range of 9.6-12.1, Vitamin D: 38 ng/mL 05/02/2024, PTH: 131.2 pg/mL 05/02/2024 Current medications include: Vitamin D supplementation with 1000 international units twice daily. Imaging has been done thyroid ultrasound 05/29/2024 and showed evidence of multiple subcentimeter cysts and cystic nodules but no parathyroid candidates. 24-hour urine studies were completed and patient's urinary calcium was 532 (09/24/2023). ROS General General: No weight change, appetite, fatigue, colon cancer, breast cancer or weakness HEENT HEENT: No difficulty swallowing, eye injury, eye surgery, swollen glands or (more content not included)... Normal [facility] Thyroidon 05-29-2024 Thyroid [facility] [address] [place] [address] Thyroid MR#: [id number] Acct: [id number] Name: YAHAIRA MORFIN Rep #: [id number] : 1945 M 78 From: Jona Espino MD PCP: Dr. Elmer Gillette MD Status: REG CLI Study: Thyroid Date of Exam: 05/29/24 Exam# [id number] Ordering Dr: Jared Padilla MD [id number] STUDY: THYROID ULTRASOUND REASON FOR EXAM: Male, 78 years old. Localization of parathyroid adenoma and anatomy TECHNIQUE: Ultrasound evaluation of the thyroid was performed with real-time and static mahan-scale imaging. COMPARISON: None. FINDINGS: RIGHT LOBE: The right lobe of the thyroid gland measures 4.3 x 1.7 x 1.8 cm. There is a heterogeneous echotexture. There are multiple anechoic cysts. The dominant anechoic cyst located in the medial aspect of the right upper thyroid lobe is septated. This measures 0.79 x 0.68 x 0.76 cm. The second cyst in the lateral aspect of the mid thyroid lobe measures 0.85 x 0.37 x 0.70 cm. LEFT LOBE: The left lobe of the thyroid gland measures 4.3 x 1.3 x 1.6 cm. There is a heterogeneous echotexture. There are multiple anechoic cysts in the left thyroid lobe. The dominant complex nodule is mixed solid and cystic located in the medial and posterior left upper thyroid lobe measures 0.51 x 0.34 x 0.45 cm. The second complex nodule in the medial and posterior mid thyroid lobe measures 0.49 x 0.34 x 0.48 cm. ISTHMUS: The isthmus measures 0.36 cm. . US/Thyroid IMPRESSION: 1. Multiple anechoic cysts in both thyroid lobes. TI-RADS points: 3. TI-RADS category: TR3. This nodule is mildly suspicious but no FNA or follow-up is necessary given the small size of this nodule. 2. Dominant anechoic cyst in the right upper thyroid lobe is septated. This measures 0.79 x 0.68 x 0.76 cm. This nodule is cystic or nearly completely cystic. TI-RADS points: 0. TI-RADS category: TR1. This nodule is benign and no FNA or follow-up is necessary. 3. Second dominant cyst in the lateral aspect of the right mid thyroid lobe measures 0.85 x 0.37 x 0.70 cm. TI-RADS points: 0. TI-RADS category: TR1. This nodule is benign and no FNA or follow-up is necessary. 4. Dominant complex cyst in the right posterior medial upper thyroid lobe measures 0.51 x 0.34 x 0.45 cm. 5. Complex nodule in the posterior medial of the left mid thyroid lobe measures 0.49 x 0.34 x 0.48 cm. TI-RADS points: 3. TI-RADS category: TR3. This nodule is mildly suspicious but no FNA or follow-up is necessary given the small size of this nodule. COMMENT: Four-phase CTA of the neck using the parathyroid protocol is more helpful in the localization of parathyroid adenoma. Electronically Signed: Jona Espino MD at 10:14 EDT , CC: Dr. Elmer Gillette MD; Dr. Jared Padilla MD Coil Taper: Signed Normal [facility] Endocrinology Visit Reporton 05-13-2024 Endocrinology Visit Report [facility] [address] [place] [address]. [address] [place] [address] OFFICE VISIT Date of Service: 05/13/24 MR#: [id number] Acct: [id number] Name: YAHAIRA MORFIN Rep #: [id number] : 1945 Provider: Ness Camacho Age/Sex: 78/M Location: [facility] [place] Status: Signed Intake Vital Signs 09/13/23 08:20 12/27/23 13:21 05/13/24 07:55 Height 5 ft 9 in 5 ft 9 in 5 ft 9 in Weight: 194 lb 6 oz BMI 28.7 BP 129/74 H Blood Pressure Location Rt brachial Position Sitting Pulse 62 Pulse Source Monitor Pulse Oximetry (%) 97 Oxygen Delivery Method room air Intake Visit Reasons: 6 M FU Chief Complaint: Primary hyperparathyroidism/rakesh ne Is patient in pain?: No Allergies No Known Allergies Allergy (Verified 12/27/23 13:22) Medications ???Medication ???Instructions ???Recorded ???Confirmed ???Type metoprolol tartrate 25 mg tablet 25 mg PO BID ##0 04/19/15 05/13/24 Rx aspirin 81 mg tablet,delayed 81 mg PO DAILY 09/03/23 05/13/24 History release rosuvastatin 40 mg tablet 40 mg PO DAILY 09/03/23 05/13/24 History zoledronic acid 5 mg/100 mL in 1 ea .Route ONCE #100 mL 11/05/23 05/13/24 Rx mannitol 5 %-water intravenous piggybck ascorbic acid (vitamin C) 500 mg mg PO 12/11/23 05/13/24 History capsule amlodipine 5 mg tablet 5 mg PO DAILY 12/27/23 05/13/24 History cholecalciferol (vitamin D3) 25 50 mcg PO DAILY 05/13/24 05/13/24 History mcg (1,000 unit) tablet omega 7-hls-vwx-fish oil 1,200 mg cap PO BID 05/13/24 05/13/24 History (144 mg-216 mg) capsule (Fish Oil) Have you fallen in the past year?: No PFSH Medical History COVID-19 ( 09/2022) MARLYS on CPAP Vitamin D deficiency Atherosclerosis of coronary artery of [place] heart without angina pectoris Primary hyperparathyroidism History of deep vein thrombosis of lower extremity Kidney stones Condyloma acuminata Hyperlipidemia Hyperparathyroidism RLS (restless legs syndrome) Sleep apnea Dog bite DVT (deep venous thrombosis) Surgical History History of colonoscopy (06/02/20) History of coronary artery stent placement (04/22/03) s/p shrapnel removal S/P hernia repair Status post hemorrhoidectomy Family History Mother Breast cancer Alzheimer disease Sister Breast cancer Myocardial infarction Father Myocardial infarction Alcohol abuse Social History Smoking Status: Never smoker alcohol intake: never substance use type: does not use caffeine: Yes Type: coffee Number of servings: 2 HPI HPI Chief Complaint: Primary hyperparathyroidism/rakesh ne Details: YAHAIRA MORFIN, is a 78 M who presents to the office today for follow up. Original history from 09/29: abs: Calcium levels-- 2014/9.6 2019/11.2 10.2 5,11.0 9,.8 Vitamin D 30 PTH 126 eGFR 69 PO4 2.1 TSH 2.3 He is a [place] war . He sustained shrapnel injuries to his right lower leg. He has CAD with history of 3 stents. He had DVT. He had 2 kidney stones between 5 and 10 years ago. No recent bone fractures. Diet isn't very high in calcium rich foods. He takes a multiple vitamin. Current history: We decided to attempt avoiding surgery. He received Reclast in November,. [facility] the past few weeks. He states he has a known, stable kidney stone. No hematuria or pain. He hasn't passed a stone in years His T-scores were -2.6 Unfortunately, his clacium has increased to 12.1 He has history of cardiac stents. He states he hasn't seen a tail trimmer, however I see that he had an appointment with Dr. Hendricks recently. He is recovering from a cold, otherwise, no complaints. ROS Const Constitutional: No fatigue, weight change or change in appetite Eyes Eyes: No change in vision ENT ENT: No dizziness/vertigo or difficulty swallowing Cardio Cardiology: No chest pain at rest, chest pain with exertion, shortness of breath or palpitations Musc Musculoskeletal: No abnormal gait, joint pain, numbness or tingling Neuro Neurology: No abnormal gait, memory loss, numbness or tingling Psych Psychiatric: No change in appetite, No memory loss and No Thoughts of harming yourself/Others Resp Respiratory: No cough, chest congestion or shortness of breath Gastro GI: No abdominal pain, constipation, diarrhea or difficulty swallowing Genitourinary Male: No burning urination Skin Skin: No itchy eyes or wounds Endo Endocrine: No fatigue or weight change Aller/Imm Allergy/Immunologic: No itchy eyes Exam Const General: cooperative, healthy appearing, comfortable, no (more content not included)... Normal [facility] 12 Lead EKG performed by [facility] on 12-27-2023 12 Lead EKG performed [place] [address] [place] [address] [place] [address] 12 Lead EKG performed by [facility] 12/27/23 1004 MR#: [id number] Acct: [id number] Name: YAHAIRA MORFIN Rep #: [id number] : 1945 78 From: Kamaljit Hendricks MD Attending Dr: Dr. Kamaljit Hendricks MD Status: DE P AMB Ordering Dr: Kamaljit Hendricks MD Date: 12/27/23 [place] [facility] Sex: M C Admitted: [facility]/12 Lead EKG performed by [facility] ECG Report Interpretation ----Sinus Rhythm -Nonspecific QRS widening. -Old Inferior infarctABNORMAL Electronically signed on 12/27/2023 at 14:[address] Kamaljit Hendricks [employer] Version 8610 12/27/23 1456 Date Kamaljit Hendricks MD CC: Dr. Elmer Gillette MD Date Dictated: 12/27/231003 Date Transcribed: 12/27/231003 Coil Taper: Signed Normal [facility] Cardiology Visit Reporton Cardiology Visit Report [facility] [address] [place] [address] OFFICE VISIT Date of Service: 12/27/23 MR#: [id number] Acct: [id number] Name: YAHAIRA MORFIN Rep #: [id number] : 1945 Provider: Dr. Kamaljit bird MD Age/Sex: 78/M Location: [facility] Status: Signed HPI HPI History of Present Illness Details: Patient is a 78-year-old white male comes in for a new patient visit. He has historically been cared for in the [place]. He had remote stenting of his mid and distal right coronary artery in 2002 and has had no recurrence of any anginal symptoms since then. He did have inferior wall hypokinesis at the time of the initial event. The patient has a history of obstructive sleep apnea he is on therapy. He has a history of hyperlipidemia his last lipids September 2023 were well- controlled with total of 137 LDL 54 HDL 47 triglycerides 182 on rosuvastatin 40 mg daily. The patient is aerobically active he walks at least a mile almost every day. He has had no drop-off in his exercise tolerance. He denies any anginal symptoms denies any TIA symptoms. Denies any PND orthopnea he has no significant lower extremity edema. Intake Vital Signs 11/14/23 13:56 12/27/23 13:21 Height 5 ft 9 in 5 ft 9 in Weight: 196 lb BMI 28.9 BP 152/80 H Blood Pressure Location Lt brachial Position Sitting Respiration 18 Pulse 78 Pulse Source Monitor Pulse Oximetry (%) 94 Oxygen Delivery Method room air Intake Visit Reasons: EST ([place]) [employer] Required: No Accompanied by: Self Is patient in pain?: No Allergies No Known Allergies Allergy (Verified 12/27/23 13:22) Medications ???Medication ???Instructions ???Recorded ???Confirmed ???Type metoprolol tartrate 25 mg tablet 25 mg PO BID ##0 04/19/15 12/27/23 Rx aspirin 81 mg tablet,delayed 81 mg PO DAILY 09/03/23 12/27/23 History release rosuvastatin 40 mg tablet 40 mg PO DAILY 09/03/23 12/27/23 History zoledronic acid 5 mg/100 mL in 1 ea .Route ONCE #100 mL 11/05/23 11/14/23 Rx mannitol 5 %-water intravenous piggybck ascorbic acid (vitamin C) 500 mg mg PO 12/11/23 12/27/23 History capsule cholecalciferol (vitamin D3) 25 25 mcg PO DAILY 12/11/23 12/27/23 History mcg (1,000 unit) tablet prevagen 10 mg PO DAILY 12/11/23 12/27/23 History amlodipine 5 mg tablet 5 mg PO DAILY 12/27/23 12/27/23 History Ejection fraction %: 50 PFSH Medical History COVID-19 ( 09/2022) MARLYS on CPAP Vitamin D deficiency Atherosclerosis of coronary artery of [place] heart without angina pectoris Primary hyperparathyroidism History of deep vein thrombosis of lower extremity Kidney stones Condyloma acuminata Hyperlipidemia Hyperparathyroidism RLS (restless legs syndrome) Sleep apnea Dog bite DVT (deep venous thrombosis) Surgical History History of colonoscopy (06/02/20) History of coronary artery stent placement (04/22/03) s/p shrapnel removal S/P hernia repair Status post hemorrhoidectomy Family History Mother Breast cancer Alzheimer disease Sister Breast cancer Myocardial infarction Father Myocardial infarction Alcohol abuse Social History Smoking Status: Never smoker alcohol intake: never substance use type: does not use caffeine: Yes Type: coffee Number of servings: 2 ROS Const Const: Negative for fatigue or weakness ENT ENT: Negative for dizziness or balance problems Cardio Chest Pain: No Palpitations: No Edema: None Muscle aches with walking: None Resp Respiratory: Negative for SOB with activity, SOB at rest or SOB orthopnea SOB lying down GI GI: Negative nausea, vomiting or heartburn Musc Musc: Negative for muscle weakness or balance problems Neuro Neuro: Negative for dizziness, lightheadedness, near syncope, syncope or weakness Endo Endo: Negative for fatigue Cardiology Exam Const Appearance: cooperative, comfortable and no acute distress Head Head: normal to inspection Eyes General: appearance normal, both eyes and all related structures Neck Neck: no JVD Carotids: Negative bruit Chest Chest inspection: normal inspection of the chest Auscultation: Bilateral: Clear to Auscultation Cardio Rate: regular rate Rhythm: regular rhythm Heart sounds: S1 normal and S2 normal; Negative rub, gallop or murmur GI GI: normal to inspection, soft and bowel sounds present Neuro General: patient alert and patient oriented x3 Skin Skin: no rashes or lesions noted Extremities Lower Extremity Edema: None: Bilateral Psych Psychological: normal affect Suppleme (more content not included)... Normal [facility] Absolute lymphocyte countOrd ered By: Elmer Melquiades on 09-26-2023 Lymphocytes Auto (Unsp spec) [#/Vol] 1.36 10*3/uL 0.83-4.51 [facility] Automated lymphocyte count a s percentage of total leukocytesOrdered By: Elmer Gillette on 09-26-2023 Lymphocytes/100 WBC Auto (Unsp spec) 18.6 % 19-41 [facility] Basophil percentageOrdered B y: Elmer Melquiades on 09-26-2023 Basophils/100 WBC (Bld) 0.8 % 0-1 [facility] Bilirubin [Mass/Vol] 0.70 mg/dL 0.20-1.00 [facility] Comment on above: For patients on eltr ombopag therapy, use of Dimension Eunice TBIL is not recommended. Chloride [Moles/Vol] 110 mmol/L 98-107 [facility] Cholesterol [Mass/Vol] 137 mg/dL <200 [facility] Comment on above: <200 mg/dL Desirable 200-240 mg/dL Borderline >240 mg/dL High Risk Eosinophils/100 WBC (Bld) 2.7 % 0-5 [facility] Glucose [Mass/Vol] 87 mg/dL 74-106 [facility] Hemoglobin (Bld) [Mass/Vol] 15.6 g/dL 13.0-16.5 [facility] Monocytes/100 WBC (Bld) 12.6 % 0-10 [facility] Neutrophils (Bld) [#/Vol] 4.8 10*3/uL 2.0-7.7 [facility] Neutrophils/100 WBC (Bld) 64.8 % 47-70 [facility] Potassium [Moles/Vol] 4.5 mmol/L 3.5-5.1 [facility] Protein [Mass/Vol] 6.7 g/dL 6.4-8.2 [facility] Sodium [Moles/Vol] 140 mmol/L 136-145 [facility] Triglyceride [Mass/Vol] 182 mg/dL <199 [facility] Comment on above: The drugs N-Acetylcy steine and Metamizole may falsely depress this assay.Serum Triglycerides Reference Interval Normal <150 mg/dL Borderline high 150 - 199 mg/dL High 200 - 499 mg/dL Very High > or = 500 mg/dL WBC (Bld) [#/Vol] 7.3 10*3/uL 4.4-11.0 [facility] Determination of erythrocyte mean corpuscular volume (MCV)Ordered By: Elmer Gillette on 09-26-2023 MCV (RBC) [Entitic vol] 94.2 fL 80-94 [facility] Erythrocyte distribution wid th ratioOrdered By: [facility]23 Erythrocyte distribution width (RBC) [Ratio] 12.6 % 11.6-14.6 [facility] Erythrocyte distribution wid th standard deviationOrdered By: Elmer Melquiades on 09-26-2023 Erythrocyte distribution width (RBC) [Entitic vol] 43.4 fL 35.1-43.9 [facility] Hematocrit Auto (Bld) [Volum e fraction][facility] By: [facility] 09-26-2023 Hematocrit (Bld) [Volume fraction] 47.0 % 40-54 [facility] Immature granulocytes/100 WB C Auto (Bld)Ordered By: Elmer Gillette 09-26-2023 Immature granulocytes/100 WBC (Bld) 0.500 % 0.0-0.9 [facility] Comment on above: IG% - Immature Granu locytes (promyelocytes, myelocytes and metamyelocytes) > 1% indicates that a LEFT SHIFT is Present. Laboratory - Chemistry and C hemistry - challengeOrdered By: Elmer Gillette on 09-26-2023 Albumin/Globulin [Mass ratio] 1.2 {ratio} 0.9-2.4 [facility] ALP [Catalytic activity/Vol] 60 U/L 45-117 [facility] ALT [Catalytic activity/Vol] 40 U/L 16-61 [facility] Cholesterol in HDL [Mass/Vol] 47 mg/dL >40 [facility] Comment on above: The drugs N-Acetylcy steine and Metamizole may falsely depress this assay. Reference Range HDL <40 mg/dL Low HDL Cholesterol HDL >or= 60 mg/dL High HDL Cholesterol Cholesterol in LDL [Mass/Vol] 54 mg/dL 0-130 [facility] CO2 [Moles/Vol] 28.0 mmol/L 21.0-32.0 [facility] Globulin (S) [Mass/Vol] 3.0 g/dL 2.2-4.2 [facility] Urea nitrogen/Creatinine [Mass ratio] 16.7 mg/mg 10-20 [facility] Laboratory - Hematology and Cell countsOrdered By: Elmer Gillette on 09-26-2023 MCH (RBC) [Entitic mass] 31.3 pg 27.0-32.0 [facility] MCHC (RBC) [Mass/Vol] 33.2 g/dL 32-36 [facility] Nucleated RBC/100 WBC (Bld) [Ratio] 0 % 0-5 [facility] Platelet mean volume (Bld) [Entitic vol] 9.6 fL 6.2-12.0 [facility] Platelets (Bld) [#/Vol] 194 10*3/uL 150-450 [facility] No Panel InformationOrdered By: Elmer Gillette on 09-26-2023 Estimated GFR (MDRD) Amer 80 mL/min >60 [facility] Comment on above: GFR Calc Estimated GFR (MDRD) Non-Af Amer 66 mL/min >60 [facility] Comment on above: Non- GFR Calc Vitamin D 25-Hydroxy 28.5 ng/mL [facility] Comment on above: Vitamin D 25(OH) Sta tus Range Deficiency <20 ng/mL (50nmol/L) Insufficiency 20 - 30 ng/mL (50 - 75 nmol/L) Sufficiency 30 - 100 ng/mL (75 - 250 nmol/L) Toxicity >100 ng/mL (>250 nmol/L) VLDL Cholesterol 36 mg/dL 5-40 [facility] RBC Auto (Bld) [#/Vol]Ordere d By: Elmer Gillette on 09-26-2023 RBC (Bld) [#/Vol] 4.99 10*6/uL 4.6-6.2 [facility] Serum or plasma calcium keesha urement (mass/volume)Ordered By: Elmer Gillette on 09-26-2023 Calcium [Mass/Vol] 11.2 mg/dL 8.5-10.1 [facility] Serum or plasma creatinine m easurement (mass/volume)Ordered By: Elmer Gillette on 09-26-2023 Creatinine [Mass/Vol] 1.14 mg/dL 0.70-1.30 [facility] Comment on above: The validity of the calculated GFR & GFRAA in patients over 70 years has not been determined. Clinical correlation is essential. Serum or plasma thyroid stim ulating hormone (TSH) measurement (units/volume)Ordered By: Elmer Gillette on 09-26-2023 TSH Qn 2.98 uIU/mL 0.358-3.74 [facility] Serum or plasma urea nitroge n measurement (mass/volume)Ordered By: Elmer Gillette on 09-26-2023 Urea nitrogen [Mass/Vol] 19 mg/dL 7-18 [facility] Thin prep Papanicolaou smear with manual screeningOrdered By: Elmer Gillette on 09-26-2023 Thin prep Papanicolaou smear with manual screening 3.7 g/dL 3.2-5.0 [facility] Thin prep Papanicolaou smear with manual screening 22 U/L 15-37 [facility] Thin prep Papanicolaou smear with manual screening 2 5-15 [facility] No Panel InformationOrdered By: Jared Padilla on 09-24-2023 Miscellaneous Test See comment [facility] Comment on above: TEST RESULTS LIMITSL itholink 24Hr Urine Panel Cystine, Urine, Qualitative Neg Negative Urine Volume (Preserved) 2580 mL/24 hr 500-4000 Calcium Oxalate Saturation 9.25 6.00-10.00 Calcium, Urine 532 High mg/24 hr <250 The urine Ca result was verified by repeat analysis. Oxalate, Urine 45 High mg/24 hr 20-40 Citrate, Urine 488 mg/24 hr >450 Calcium Phosphate Saturation 2.96 High 0.50-2.00 pH, 24 hr, Urine 6.558 High 5.800-6.200 Uric Acid Saturation 0.19 <1.00 Uric Acid, Urine 769 mg/24 hr <800 Sodium, Urine 186 High mmol/24 hr 50-150 Potassium, Urine 64 mmol/24 hr 20-100 Magnesium, Urine 159 High mg/24 hr 30-120 Phosphorus, Urine 944 mg/24 hr 600-1200 Ammonium, Urine 41 mmol/24 hr 15-60 Chloride, Urine 186 mmol/24 hr 70-250 Sulfate, Urine 51 meq/24 hr 20-80 Urea Nitrogen, Urine 13.69 g/24 hr 6.00-14.00 Protein Catabolic Rate 1.2 g/kg/24 hr 0.8-1.4 Creatinine, Urine 1735 mg/24 hr Not Applic. Creatinine/Kg Body Weight 20.1 mg/24 hr/kg 11.9-24.4 Calcium/Kg Body Weight 6.2 High mg/24 hr/kg <4.0 Calcium/Creatinine Ratio 306 High mg/g creat 34-196 TESTING PERFORMED AT [facility]. ORIGINAL REPORT ON FILE IN LAB CONTAINS ADDITIONAL TEST SITE INFORMATION. US ABDOMEN LIMITEDon 023 US ABDOMEN LIMITED ORIGINAL EXAMINATION: RIGHT UPPER QUADRANT ULTRASOUND 07/02/2023 8:53 am COMPARISON: None. HISTORY: ORDERING SYSTEM PROVIDED HISTORY: Reason for Exam: INCREASED POTASSIUM FINDINGS: LIVER: The liver demonstrates normal echogenicity without evidence of intrahepatic biliary ductal dilatation. There is a well-defined anechoic lesion within the liver up to 1.1 cm consistent with a hepatic cyst. BILIARY SYSTEM: There is an echogenic focus within the gallbladder that appears to demonstrate posterior acoustic shadowing suggestive of a gallstone up to 0.5 cm. No gallbladder wall thickening or pericholecystic fluid. Negative sonographic Jordan's sign. Common bile duct is within normal limits measuring . RIGHT KIDNEY: The right kidney demonstrates no hydronephrosis. There is a 1.1 cm simple renal cyst. Echogenic focus within the renal cortex consistent with nephrolithiasis up to 0.7 cm. PANCREAS: Visualized portions of the pancreas are unremarkable. OTHER: No evidence of right upper quadrant ascites. IMPRESSION: Cholelithiasis at 0.5 cm. No evidence of acute cholecystitis. Nephrolithiasis up to 0.7 cm. No hydronephrosis. I have personally reviewed the images of this examination and agree with the resident's findings and interpretation. Interpreted by: Chau Ruano MD Preliminary Report By: Kamaljit Barclay Electronically signed By Chau Ruano MD Dictated Date: 07/02/2023 9:07:37 AM Prelim Date: 07/02/2023 11:35:30 AM Sign Date: 07/02/2023 11:35:30 AM Ordering Provider: ANGELY [facility] ([place]) INR in Blood by Coagulation assayon 02-09-2022 INR Coag (Bld) [Relative time] 1.0 {INR} [facility] Work Phone: Laboratory - Coagulationon 0 02-09-2022 aPTT Coag (Bld) [Time] 30.4 s 24.1-36.2 [facility] Work Phone: PT Coag (PPP) [Time] 13.2 s 11.7-14.9 [facility] Work Phone: No Panel Informationon 02-09 D-Dimer Quantitative (PE/DVT) < 0.27 FEU/ug/m 0.27-0.49 [facility] Work Phone: Comment on above: NORMAL D-Dimer level (<0.50) indicates no DVT or PE. Absolute lymphocyte counton 12-10-2021 Lymphocytes Auto (Unsp spec) [#/Vol] 1.22 10*3/uL 0.83-4.51 [facility] Work Phone: Basophil percentageon 2021 Basophils/100 WBC (Bld) 0.6 % 0-1 [facility] Work Phone: Chloride [Moles/Vol] 103 mmol/L 98-107 [facility] Work Phone: Eosinophils/100 WBC (Bld) 0.8 % 0-5 [facility] Work Phone: Glucose [Mass/Vol] 106 mg/dL 74-106 [facility] Work Phone: [phone] Comment on above: Fasting Glucose resu lt from 100 to 125 mg/dL suggests IMPAIRED HOMEOSTASIS per A.D.A. criteria. Neutrophils (Bld) [#/Vol] 9.5 10*3/uL 2.0-7.7 [facility] Work Phone: [phone] Neutrophils/100 WBC (Bld) 72.8 % 47-70 [facility] Work Phone: [phone] Potassium [Moles/Vol] 4.4 mmol/L 3.5-5.1 [facility] Work Phone: [phone] Sodium [Moles/Vol] 133 mmol/L 136-145 [facility] Work Phone: WBC (Bld) [#/Vol] 13.0 10*3/uL 4.4-11.0 [facility] Work Phone: Basophil percentage 0-5 SEEN /hpf 0-5 [facility] Work Phone: Bilirubin Test strip Ql (U)o n 12-10-2021 Bilirubin Ql (U) Negative Negative [facility] Work Phone: Blood erythrocytes count (nu mber/volume)on 12-10-2021 RBC (Bld) [#/Vol] 5.17 10*6/uL 4.6-6.2 [facility] Work Phone: Blood hemoglobin measurement (mass/volume)on 12-10-2021 Hemoglobin (Bld) [Mass/Vol] 16.8 g/dL 13.0-16.5 [facility] Work Phone: Blood lymphocytes/100 leukoc yteson 12-10-2021 Lymphocytes/100 WBC (Bld) 9.4 % 19-41 [facility] Work Phone: Blood manual differential co mment interpretation (narrative result)on 12-10-2021 Manual differential comment Andrew (Bld) [Interp] SCANNED [facility] Work Phone: Blood monocytes/100 leukocyt eson 12-10-2021 Monocytes/100 WBC (Bld) 15.9 % 0-10 [facility] Work Phone: Blood platelet adequacy dete ction by light microscopyon 12-10-2021 Platelets LM Ql (Bld) ADEQUATE [facility] Work Phone: Blood platelet mean volumeon 12-10-2021 Platelet mean volume (Bld) [Entitic vol] 9.1 fL 6.2-12.0 [facility] Work Phone: Determination of erythrocyte mean corpuscular volume (MCV)on 12-10-2021 MCV (RBC) [Entitic vol] 94.6 fL 80-94 [facility] Work Phone: Hematocrit Auto (Bld) [Volum e fraction]on 12-10-2021 Hematocrit (Bld) [Volume fraction] 48.9 % 40-54 [facility] Work Phone: Ketones Test strip Ql (U)on 12-10-2021 Ketones Ql (U) Negative Negative [facility] Work Phone: Laboratory - Chemistry and C hemistry - challengeon 12-10-2021 CO2 [Moles/Vol] 25.0 mmol/L 21.0-32.0 [facility] Work Phone: Urea nitrogen/Creatinine [Mass ratio] 17.8 mg/mg 10-20 [facility] Work Phone: Laboratory - Hematology and Cell countson 12-10-2021 Erythrocyte distribution width (RBC) [Entitic vol] 43.1 fL 35.1-43.9 [facility] Work Phone: [phone] Erythrocyte distribution width (RBC) [Ratio] 12.3 % 11.6-14.6 [facility] Work Phone: Immature granulocytes/100 WBC (Bld) 0.500 % 0.0-0.9 [facility] Work Phone: Comment on above: IG% - Immature Granu locytes (promyelocytes, myelocytes and metamyelocytes) > 1% indicates that a LEFT SHIFT is Present. MCH (RBC) [Entitic mass] 32.5 pg 27.0-32.0 [facility] Work Phone: Nucleated RBC/100 WBC (Bld) [Ratio] 0 % 0-5 [facility] Work Phone: [phone] MCHC Auto (RBC) [Mass/Vol]on 12-10-2021 MCHC (RBC) [Mass/Vol] 34.4 g/dL 32-36 [facility] Work Phone: Mucus LM Ql (Urine sed)on Mucus Ql (Urine sed) 0 SEEN /hpf [facility] Work Phone: Nitrite Test strip Ql (U)on 12-10-2021 Nitrite Ql (U) Negative Negative [facility] Work Phone: No Panel Informationon 12-10 Estimated Creatinine Clearance Calc 43.72 ml/min [facility] Work Phone: Estimated GFR (MDRD) Amer 60 mL/min >60 [facility] Work Phone: Comment on above: GFR Calc Estimated GFR (MDRD) Non-Af Amer 50 mL/min >60 [facility] Work Phone: Comment on above: Non- GFR Calc Platelets bldon 12-10-2021 Platelets (Bld) [#/Vol] 208 10*3/uL 150-450 [facility] Work Phone: [phone] Protein Test strip Ql (U)on 12-10-2021 Protein Ql (U) 500 mg/dl Negative [facility] Work Phone: [phone] RBC morphologyon 12-10-2021 RBC morphology finding Nom (Bld) NORM C+C NORMAL NORM C&C [facility] Work Phone: [phone] Review by pathologiston - Pathologist review Andrew (Unsp spec) [Interp] Colleen lazcano [facility] Work Phone: Pathologist review Andrew (Unsp spec) [Interp] Reviewed [facility] Work Phone: Comment on above: Previous reported re sult: Colleen lazcano Edited by: RGOOD on 12/12/21:1322Neutrophilic leukocytosis.Polycythemia Clinical correlation necessary.Jay Olivera M.D. 12/12/21 AMENDED REPORT 12/12/21 1322 PATH REV previously reported as: Colleen lazcano Serum or plasma calcium keesha urement (mass/volume)on 12-10-2021 Calcium [Mass/Vol] 11.0 mg/dL 8.5-10.1 [facility] Work Phone: Serum or plasma creatinine m easurement (mass/volume)on 12-10-2021 Creatinine [Mass/Vol] 1.46 mg/dL 0.70-1.30 [facility] Work Phone: Comment on above: The validity of the calculated GFR & GFRAA in patients over 70 years has not been determined. Clinical correlation is essential. Serum or plasma urea nitroge n measurement (mass/volume)on 12-10-2021 Urea nitrogen [Mass/Vol] 26 mg/dL 7-18 [facility] Work Phone: Squamous epithelial cells de tection in urine sediment by light microscopyon 12-10-2021 Epithelial cells.squamous LM Ql (Urine sed) 0 SEEN /hpf 0-5 [facility] Work Phone: Thin prep Papanicolaou smear with manual screeningon 12-10-2021 Thin prep Papanicolaou smear with manual screening 5 5-15 [facility] Work Phone: Urine blood detectionon RBC Ql (U) 250 /ul Negative [facility] Work Phone: RBC Ql (U) 50-100 SEEN /hpf 0-5 [facility] Work Phone: Urine clarityon 12-10-2021 Clarity (U) Sl. Cloudy Clear [facility] Work Phone: Urine color determinationon 12-10-2021 Color (U) Yellow Yellow [facility] Work Phone: Urine glucose detectionon Glucose Ql (U) Normal mg/dl Normal [facility] Work Phone: Urine leukocyte esterase det ection by dipstickon 12-10-2021 Leukocyte esterase Test strip Ql (U) 25 /ul Negative [facility] Work Phone: Urine pHon 12-10-2021 pH (U) 6.0 [pH] 5.0 - 8.0 [facility] Work Phone: Urine sediment bacteria coun t by microscopy (number/high power field)on 12-10-2021 Bacteria LM.HPF (Urine sed) [#/Area] Not Reportable [facility] Work Phone: Urine specific gravity measu rementon 12-10-2021 Specific gravity (U) [Rel density] 1.025 1.002-1.030 [facility] Work Phone: Urobilinogen Auto test strip Ql (U)on 12-10-2021 Urobilinogen Ql (U) Normal mg/dl Normal [facility] Work Phone: Absolute lymphocyte counton 12-01-2021 Lymphocytes Auto (Unsp spec) [#/Vol] 1.19 10*3/uL 0.83-4.51 [facility] Work Phone: Basophil percentageon 2021 Basophil percentage 0 SEEN /hpf 0-5 [facility] Work Phone: Basophils/100 WBC (Bld) 0.8 % 0-1 [facility] Work Phone: Chloride [Moles/Vol] 109 mmol/L 98-107 [facility] Work Phone: Eosinophils/100 WBC (Bld) 3.8 % 0-5 [facility] Work Phone: Glucose [Mass/Vol] 98 mg/dL 74-106 [facility] Work Phone: Neutrophils (Bld) [#/Vol] 2.6 10*3/uL 2.0-7.7 [facility] Work Phone: Neutrophils/100 WBC (Bld) 53.3 % 47-70 [facility] Work Phone: [phone] Potassium [Moles/Vol] 4.6 mmol/L 3.5-5.1 [facility] Work Phone: [phone] Sodium [Moles/Vol] 139 mmol/L 136-145 [facility] Work Phone: WBC (Bld) [#/Vol] 4.8 10*3/uL 4.4-11.0 [facility] Work Phone: [phone] Bilirubin Test strip Ql (U)o n 12-01-2021 Bilirubin Ql (U) Negative Negative [facility] Work Phone: [phone] Blood erythrocytes count (nu mber/volume)on 12-01-2021 RBC (Bld) [#/Vol] 4.74 10*6/uL 4.6-6.[facility] Work [facility]: Blood hemoglobin measurement (mass/volume)on 12-01-2021 Hemoglobin (Bld) [Mass/Vol] 15.3 g/dL 13.0-16.5 [facility] Work Phone: Blood lymphocytes/100 leukoc yteson 12-01-2021 Lymphocytes/100 WBC (Bld) 24.8 % 19-41 [facility] Work Phone: [phone] Blood monocytes/100 leukocyt eson 12-01-2021 Monocytes/100 WBC (Bld) 16.7 % 0-10 [facility] Work Phone: [phone] Blood platelet mean volumeon 12-01-2021 Platelet mean volume (Bld) [Entitic vol] 9.5 fL 6.2-12.0 [facility] Work Phone: [phone] Determination of erythrocyte mean corpuscular volume (MCV)on 12-01-2021 MCV (RBC) [Entitic vol] 95.8 fL 80-94 [facility] Work Phone: [phone] Hematocrit Auto (Bld) [Volum e fraction]on 12-01-2021 Hematocrit (Bld) [Volume fraction] 45.4 % 40-54 [facility] Work Phone: [phone] Ketones Test strip Ql (U)on 12-01-2021 Ketones Ql (U) Negative Negative [facility] Work Phone: [phone] Laboratory - Chemistry and C hemistry - challengeon 12-01-2021 CO2 [Moles/Vol] 25.0 mmol/L 21.0-32.0 [facility] Work Phone: [phone] Urea nitrogen/Creatinine [Mass ratio] 17.6 mg/mg 10-20 [facility] Work Phone: [phone] Laboratory - Hematology and Cell countson 12-01-2021 Erythrocyte distribution width (RBC) [Entitic vol] 45.4 fL 35.1-43.9 [facility] Work Phone: [phone] Erythrocyte distribution width (RBC) [Ratio] 12.8 % 11.6-14.6 [facility] Work Phone: [phone] Immature granulocytes/100 WBC (Bld) 0.600 % 0.0-0.9 [facility] Work Phone: [phone] Comment on above: IG% - Immature Granu locytes (promyelocytes, myelocytes and metamyelocytes) > 1% indicates that a LEFT SHIFT is Present. MCH (RBC) [Entitic mass] 32.3 pg 27.0-32.0 [facility] Work Phone: [phone] Nucleated RBC/100 WBC (Bld) [Ratio] 0 % 0-5 [facility] Work Phone: [phone] MCHC Auto (RBC) [Mass/Vol]on 12-01-2021 MCHC (RBC) [Mass/Vol] 33.7 g/dL 32-36 [facility] Work Phone: [phone] Mucus LM Ql (Urine sed)on Mucus Ql (Urine sed) 0 SEEN /hpf [facility] Work Phone: Nitrite Test strip Ql (U)on 12-01-2021 Nitrite Ql (U) Negative Negative [facility] Work Phone: No Panel Informationon 12-01 Estimated Creatinine Clearance Calc 53.64 ml/min [facility] Work Phone: Estimated GFR (MDRD) Amer 76 mL/min >60 [facility] Work Phone: Comment on above: GFR Calc Estimated GFR (MDRD) Non-Af Amer 63 mL/min >60 [facility] Work Phone: Comment on above: Non- GFR Calc Platelets bldon 12-01-2021 Platelets (Bld) [#/Vol] 181 10*3/uL 150-450 [facility] Work Phone: Protein Test strip Ql (U)on 12-01-2021 Protein Ql (U) 15 mg/dl Negative [facility] Work Phone: Serum or plasma calcium keesha urement (mass/volume)on 12-01-2021 Calcium [Mass/Vol] 10.2 mg/dL 8.5-10.1 [facility] Work Phone: Serum or plasma creatinine m easurement (mass/volume)on 12-01-2021 Creatinine [Mass/Vol] 1.19 mg/dL 0.70-1.30 [facility] Work Phone: Comment on above: The validity of the calculated GFR & GFRAA in patients over 70 years has not been determined. Clinical correlation is essential. Serum or plasma urea nitroge n measurement (mass/volume)on 12-01-2021 Urea nitrogen [Mass/Vol] 21 mg/dL 7-18 [facility] Work Phone: Squamous epithelial cells de tection in urine sediment by light microscopyon 12-01-2021 Epithelial cells.squamous LM Ql (Urine sed) 0 SEEN /hpf 0-5 [facility] Work Phone: Thin prep Papanicolaou smear with manual screeningon 12-01-2021 Thin prep Papanicolaou smear with manual screening 5 5-15 [facility] Work Phone: Urine blood detectionon 11-05 RBC Ql (U) 10 /ul Negative [facility] Work Phone: [phone] RBC Ql (U) 0-5 SEEN /hpf 0-5 [facility] Work Phone: Urine clarityon 12-01-2021 Clarity (U) Clear Clear [facility] Work Phone: Urine color determinationon 12-01-2021 Color (U) Yellow Yellow [facility] Work Phone: Urine glucose detectionon Glucose Ql (U) Normal mg/dl Normal [facility] Work Phone: [phone] Urine leukocyte esterase det ection by dipstickon 12-01-2021 Leukocyte esterase Test strip Ql (U) Negative Negative [facility] Work Phone: Urine pHon 12-01-2021 pH (U) 6.0 [pH] 5.0 - 8.0 [facility] Work Phone: Urine sediment bacteria coun t by microscopy (number/high power field)on 12-01-2021 Bacteria LM.HPF (Urine sed) [#/Area] 1 /[HPF] None Seen [facility] Work Phone: Urine specific gravity measu rementon 12-01-2021 Specific gravity (U) [Rel density] 1.020 1.002-1.030 [facility] Work Phone: Urobilinogen Auto test strip Ql (U)on 12-01-2021 Urobilinogen Ql (U) Normal mg/dl Normal [facility] Work Phone: CT FACIAL WITHOUT CONTRASTon 02-02-2018 CT FACIAL WITHOUT CONTRAST EXAMINATION:CT OF THE FACE WITHOUT CONTRAST 01/29/2018 2:26 pmTECHNIQUE:CT of the face was performed without the administration of intravenouscontrast. Multiplanar reformatted images are provided for review. Dosemodulation, iterative reconstruction, and/or weight based adjustment of themA/kV was utilized to reduce the radiation dose to as low as reasonablyachievable.C OMPARISON:NoneHISTORY: HISTORY: No contrast, fell hitting nose on concrete, swelling across bridgeof nose, no LOC, no reported dizziness, initial exam;FINDINGS:FACIAL BONES: Dental caries and periapical lucencies of multiple maxillaryand residual left mandibular tooth, consistent with periodontal disease.Periapical lucency and displacement of the right maxillary cuspid (ADA tooth6) may be posttraumatic.There is a nondisplaced, midline nasal bone fracture. The maxilla, pterygoidplates and zygomatic arches are intact. The mandible is intact. Themandibular condyles are normally situated.ORBITS: The globes appear intact. The extraocular muscles, optic nervesheath complexes and lacrimal glands appear unremarkable. No retrobulbarhematoma or mass is seen. The orbital kelly and rims are intact.SINUSES/MASTOID S: The paranasal sinuses and mastoid air cells are wellaerated. No acute fracture is seen.SOFT TISSUES: Soft tissue swelling of the nose.IMPRESSION:Nondis placed, midline nasal bone fracture and associated soft tissue swellingof the nose.Overall poor dentition with evidence of periodontal disease. Periapicallucency and displacement of the right maxillary cuspid (ADA tooth is 6) maybe posttraumatic. Correlate with direct visual inspection. Normal [facility] ([place]) CT HEAD WITHOUT CONTRASTon 0 01-29-2018 CT HEAD WITHOUT CONTRAST EXAMINATION:CT OF THE HEAD WITHOUT CONTRAST 01/29/2018 2:23 pmTECHNIQUE:CT of the head was performed without the administration of intravenouscontrast. Dose modulation, iterative reconstruction, and/or weight basedadjustment of the mA/kV was utilized to reduce the radiation dose to as lowas reasonably achievable.COMPARISON: None.HISTORY:HISTORY: No contrast, fell hitting nose on concrete, swelling across bridgeof nose, no LOC, no reported dizziness, initial exam;FINDINGS:BRAIN/VE NTRICLES: There is no acute intracranial hemorrhage, mass effect ormidline shift. No abnormal extra-axial fluid collection. The mahan-whitedifferentiat ion is maintained without evidence of an acute infarct. There isno evidence of hydrocephalus. Atherosclerotic vascular calcifications areseen intracranially.ORBITS: The visualized portion of the orbits demonstrate no acute abnormality.SINUSES: The visualized paranasal sinuses and mastoid air cells demonstrateno acute abnormality.SOFT TISSUES/SKULL: No acute abnormality of the visualized skull or softtissues.IMPRESSION :No acute intracranial abnormality. Normal [facility] ([place] ED NOTEon 01-29-2018 [facility] NOTES Normal [facility] [place] [facility] Normal [facility] [place] ED PROVIDERon 01-29-2018 [facility] NOTES Normal [facility] [place] OSU[facility]IMC[facility]ED[facility] 2017 [facility] Coding OP/ED Report Normal [facility] [place] OSUHIMCACENCSUMon 01-29-2018 [facility] CAC Encounter Summary Report Normal [facility] ([place] Vital Signs Date Time Vital Sign Value Performing Clinician Karon canales 11-11-2024 07:54-0400 Body height 175.[address] Elmer Gillette MD Work Phone: [facility] 11-11-2024 07:54-0400 Body mass index (BMI) [Ratio] 29.4 kg/m2 Dr. Elmer Gillette MD Work Phone: [facility] 11-11-2024 07:54-0400 Body weight 90.[address] Elmer Gillette MD Work Phone: [facility] 11-11-2024 07:54-0400 Diastolic blood pressure 76 mm[Hg] Dr. Elmer Gillette MD Work Phone: [facility] 11-11-2024 07:54-0400 Heart rate 70 /min Dr. Elmer Gillette MD Work Phone: [facility] 11-11-2024 07:54-0400 SaO2% (BldA) [Mass fraction] 95 % Dr. Elmer Gillette MD Work Phone: [facility] 11-11-2024 07:54-0400 Systolic blood pressure 163 mm[Hg] Dr. Elmer Gillette MD Work Phone: [facility] 08-22-2024 15:27-0500 Body temperature 98.2 [degF] Dr. Elmer Gillette MD Work Phone: [facility] 08-22-2024 15:27-0500 Diastolic blood pressure 88 mm[Hg] Dr. Elmer Gillette MD Work Phone: [phone] [place] [address] 08-22-2024 15:27-0500 Heart rate 107 /min Dr. Elmer Gillette MD Work Phone: [phone] [place] [address] 08-22-2024 15:27-0500 Respiratory rate 20 /min Dr. Elmer Gillette MD Work Phone: [phone] [place] [address] 08-22-2024 15:27-0500 SaO2% (BldA) [Mass fraction] 98 % Dr. Elmre Gillette MD Work Phone: [phone] [place] [address] 08-22-2024 15:27-0500 Systolic blood pressure 137 mm[Hg] Dr. Elmer Gillette MD Work Phone: [phone])[phone] [place] [address] 08-22-2024 06:35-0500 Body height 175.[address] Elmer Gillette MD Work Phone: [phone] [place] [address] 08-22-2024 06:35-0500 Body mass index (BMI) [Ratio] 29 kg/m2 Dr. Elmer Gillette MD Work Phone: [phone] [place] [address] 08-22-2024 06:35-0500 Body weight 89.[address] Elmer Gillette MD Work Phone: [phone] [place] [address] 08-01-2024 08:11-0500 Body mass index (BMI) [Ratio] 28.5 kg/m2 Dr. Elmer Gillette MD Work Phone: [phone] [place] [address] 08-01-2024 08:11-0500 Body weight 87.[address] Elmer Gillette MD Work Phone: [phone] [place] [address] 08-01-2024 08:11-0500 Diastolic blood pressure 69 mm[Hg] Dr. Elmer Gillette MD Work Phone: [phone] [place] [address] 08-01-2024 08:11-0500 Respiratory rate 16 /min Dr. Elmer Gillette MD Work Phone: [phone] [place] [address] 08-01-2024 08:11-0500 Systolic blood pressure 162 mm[Hg] Dr. Elmer Gillette MD Work Phone: [facility] 11-14-2023 14:35-0400 Diastolic blood pressure 69 mm[Hg] [facility] 11-14-2023 14:35-0400 Heart rate 77 /min [facility] 11-14-2023 14:35-0400 Systolic blood pressure 145 mm[Hg] [facility] 11-14-2023 13:56-0400 Body height 175.26 cm [facility] 11-14-2023 13:56-0400 Body mass index (BMI) [Ratio] 28.8 kg/m2 [facility] 11-14-2023 13:56-0400 Body temperature 96 [degF] [facility] 11-14-2023 13:56-0400 Body weight 88.45 kg [facility] 11-14-2023 13:56-0400 Respiratory rate 16 /min [facility] 11-14-2023 13:56-0400 SaO2% (BldA) [Mass fraction] 98 % [facility] 09-13-2023 08:20-0500 Body height 175.26 cm [facility] 09-13-2023 08:20-0500 Body mass index (BMI) [Ratio] 29.1 kg/m2 [facility] 09-13-2023 08:20-0500 Body temperature 98.6 [degF] [facility] 09-13-2023 08:20-0500 Body weight 89.58 kg [facility] 09-13-2023 08:20-0500 Diastolic blood pressure 88 mm[Hg] [facility] 09-13-2023 08:20-0500 Heart rate 70 /min [facility] 09-13-2023 08:20-0500 Respiratory rate 16 /min [facility] 09-13-2023 08:20-0500 SaO2% (BldA) [Mass fraction] 97 % [facility] 09-13-2023 08:20-0500 Systolic blood pressure 156 mm[Hg] [facility] 02-09-2022 11:03-0400 Body height 175.26 cm [facility] Work Phone: 02-09-2022 10:55-0400 Body mass index (BMI) [Ratio] 29 kg/m2 [facility] Work Phone: 02-09-2022 10:55-0400 Body temperature 98.8 [degF] [facility] Work Phone: 02-09-2022 10:55-0400 Body weight 89.1 kg [facility] Work Phone: 02-09-2022 10:55-0400 Diastolic blood pressure 80 mm[Hg] [facility] Work Phone: 02-09-2022 10:55-0400 Heart rate 71 /min [facility] Work Phone: 02-09-2022 10:55-0400 Respiratory rate 15 /min [facility] Work Phone: 02-09-2022 10:55-0400 SaO2% (BldA) [Mass fraction] 96 % [facility] Work Phone: 02-09-2022 10:55-0400 Systolic blood pressure 151 mm[Hg] [facility] Work Phone: 12-10-2021 17:11-0400 Diastolic blood pressure 61 mm[Hg] [facility] Work Phone: 12-10-2021 17:11-0400 Heart rate 68 /min [facility] Work Phone: 12-10-2021 17:11-0400 Systolic blood pressure 128 mm[Hg] [facility] Work Phone: 12-10-2021 13:35-0400 Body height 175.26 cm [facility] Work Phone: 12-10-2021 13:35-0400 Body mass index (BMI) [Ratio] 29.5 kg/m2 [facility] Work Phone: 12-10-2021 13:35-0400 Body temperature 97.4 [degF] [facility] Work Phone: 12-10-2021 13:35-0400 Body weight 90.71 kg [facility] Work Phone: 12-10-2021 13:35-0400 Respiratory rate 16 /min [facility] Work Phone: 12-10-2021 13:35-0400 SaO2% (BldA) [Mass fraction] 99 % [facility] Work Phone: 12-06-2021 16:56-0400 Body temperature 98.1 [degF] [facility] Work Phone: 12-06-2021 16:56-0400 Diastolic blood pressure 63 mm[Hg] [facility] Work Phone: 12-06-2021 16:56-0400 Heart rate 72 /min [facility] Work Phone: 12-06-2021 16:56-0400 Respiratory rate 16 /min [facility] Work Phone: 12-06-2021 16:56-0400 SaO2% (BldA) [Mass fraction] 96 % [facility] Work Phone: 12-06-2021 16:56-0400 Systolic blood pressure 135 mm[Hg] [facility] Work Phone: 12-06-2021 14:57-0400 Body mass index (BMI) [Ratio] 29.7 kg/m2 [facility] Work Phone: 12-06-2021 14:57-0400 Body weight 91.17 kg [facility] Work Phone: 12-01-2021 02:25-0400 Diastolic blood pressure 81 mm[Hg] [facility] Work Phone: 12-01-2021 02:25-0400 Heart rate 61 /min [facility] Work Phone: 12-01-2021 02:25-0400 Respiratory rate 18 /min [facility] Work Phone: 12-01-2021 02:25-0400 SaO2% (BldA) [Mass fraction] 100 % [facility] Work Phone: 12-01-2021 02:25-0400 Systolic blood pressure 127 mm[Hg] [facility] Work Phone: 12-01-2021 00:49-0400 Body height 175.26 cm [facility] Work Phone: 12-01-2021 00:49-0400 Body mass index (BMI) [Ratio] 30.1 kg/m2 [facility] Work Phone: 12-01-2021 00:49-0400 Body temperature 97.8 [degF] [facility] Work Phone: 12-01-2021 00:49-0400 Body weight 92.5 kg [facility] Work Phone: Encounters Encounter Date Encounter Type Care Provider Facility Start: 11-11-2024 End: 11-11-[address] Jared Padilla MD -[facility] Work Phone: Start: 11-11-2024 End: 11-11-2024 ambulatory Elmer Chi Melquiades Facility:[facility] Start: 11-10-2024 End: 11-10-[address] Elmer Gillette MD Work Phone: [facility] Work Phone: Start: 11-10-2024 End: 11-10-[address] Elmer Gillette MD -[facility] Work Phone: Start: 11-10-2024 End: 11-10-2024 ambulatory Elmer Chi Melquiades Facility:[facility] Start: 10-30-2024 ambulatory [facility] Facility:[facility] Start: 10-03-2024 End: 10-03-[address] Elmer Gillette MD Work Phone: [facility] Work Phone: Start: 10-03-2024 End: 10-03-[address] lEmer Gillette MD -Ultrasound, [facility] Work Phone: Start: 10-03-2024 End: 10-03-2024 ambulatory Elmer Gillette Facility:[facility] Start: 09-29-2024 End: 09-29-[address] Elmer Gillette MD Work Phone: [facility] Work Phone: Start: 09-29-2024 End: 09-29-2024 Patient encounter procedure Jared Padilla MD -Laboratory Work Phone: Start: 09-29-2024 End: 09-29-2024 ambulatory Jared Padilla Facility:[facility] Start: 09-19-2024 Encounter for other preprocedural examination Kamaljit Koehler [facility] Start: 09-15-2024 End: 09-15-[address] Kamaljit Koehler MD -Laboratory Work Phone: Start: 09-15-2024 End: 09-15-2024 ambulatory Kamaljit Koehler Facility:[facility] Start: 09-10-2024 End: 09-10-2024 Patient encounter procedure Migdalia Dunlap PA-C -Laboratory Work Phone: Start: 09-10-2024 End: 09-10-2024 ambulatory [facility] Facility:[facility] Start: 09-03-2024 End: 09-03-[address] Kamaljit Koehler MD -Laboratory Work Phone: Start: 09-03-2024 End: 09-03-[address] Kamaljit Koehler MD -[facility] Work Phone: Start: 09-03-2024 End: 09-03-2024 ambulatory Elmer Chi Melquiades Facility:[facility] Start: 09-03-2024 End: 09-03-2024 ambulatory Elmer Chi Melquiades Facility:[facility] Start: 08-22-2024 Non-patient / Non-visit Dr. Kamaljit Koehler MD -[facility] Start: 08-22-2024 End: 08-22-2024 Admission to same day surgery center Dr. Kamaljit Koehler MD -[facility] Start: 08-22-2024 End: 08-22-2024 ambulatory Elmer Chi Melquiades Facility:[facility] Start: 08-15-2024 End: 08-15-2024 ambulatory Elmer Chi Melquiades Facility:[facility] Start: 08-15-2024 End: 08-15-2024 Non-patient / Non-visit Dr. Kamaljit Hendricks MD -[facility] Work Phone: Start: 08-01-2024 End: 08-01-[address] Kamaljit Koehler MD -[facility] Work Phone: Start: 08-01-2024 End: 08-01-2024 ambulatory Elmer Chi Melquiades Facility:[facility] Start: 07-17-2024 End: 07-17-[address] Kamaljit Koehler MD -Nuclear Medicine, [facility] Work Phone: Start: 07-17-2024 End: 07-17-2024 ambulatory Kamaljit Koehler Facility:[facility] Start: 06-13-2024 End: 06-13-[address] Elmer Gillette MD -Laboratory, Phy Office 3rd Flr Start: 06-13-2024 End: 06-13-2024 ambulatory Elmer Chi Melquiades Facility:[facility] Start: 06-10-2024 End: 06-10-2024 ambulatory Kamaljit Koehler Facility:[facility] Start: 05-29-2024 End: 05-29-2024 ambulatory Elmer Chi Melquiades Facility:[facility] Start: 05-13-2024 End: 05-13-2024 ambulatory Elmer Chi Melquiades Facility:[facility] Start: 12-27-2023 End: 12-27-2023 ambulatory Elmer Chi Melquiades Facility:[facility] Start: 11-14-2023 End: 11-14-2023 ambulatory [facility] Work Phone: Start: 11-14-2023 End: 11-14-2023 Patient encounter procedure [facility]-Medical Out Work Phone: Start: 10-25-2023 End: 10-25-2023 ambulatory [facility] Work Phone: Start: 10-25-2023 End: 10-25-2023 Patient encounter procedure [facility]-Outpatient Bone Densitometry Work Phone: Start: 09-26-2023 End: 09-26-2023 Patient encounter procedure [facility]-Laboratory, Phy Office 3rd Flr Start: 09-24-2023 End: 09-24-2023 ambulatory [facility] Work Phone: Start: 09-24-2023 End: 09-24-2023 Patient encounter procedure [facility]-Laboratory, Specimen Work Phone: Start: 09-13-2023 End: 09-13-2023 Patient encounter procedure [facility] Work Phone: Start: 07-02-2023 End: 07-03-2023 ambulatory ANGELY HALL MD Facility:[facility] Start: 07-02-2023 End: 07-02-2023 Patient encounter procedure ANGELY HALL MD [facility] Start: 03-03-2022 Non-patient / Non-visit [facility] Start: 03-03-2022 End: 03-03-2022 Patient encounter procedure [facility]-Cardiovascular Services Start: 02-09-2022 Registered [facility] Start: 02-09-2022 End: 02-09-2022 Patient encounter procedure [facility] Start: 12-10-2021 End: 12-10-2021 Emergency department patient visit [facility]-Emergency Department Start: 12-08-2021 End: 12-08-2021 Patient encounter procedure [facility]-Pulmonary Services/Neurology Start: 12-08-2021 Non-patient / Non-visit [facility] Start: 12-06-2021 End: 12-06-2021 Admission to same day surgery center [facility] Start: 12-01-2021 End: 12-01-2021 Emergency department patient visit [facility]-Emergency Department Start: 01-29-2018 Emergency department patient visit HUSEYIN RILEY [facility] ([place]) Procedures Date Procedure Procedure Detail Performing Clinician Start: 11-10-[address] Elmer Gillette MD Work Phone: Start: 10-03-[address] Elmer Gillette MD Work Phone: Start: 07-17-2024 Single photon emissi on computed tomography of parathyroid Dr. Elmer Gillette MD Work Phone: Start: 06-13-2024 SARS-CoV-2, Influenz a & RSV (PCR) Dr. Elmer Gillette MD Work Phone: Start: 10-25-2023 Dual energy X-ray absorptiometry [facility] Start: 12-10-2021 CT of abdomen and pe lvis without contrast Start: 12-06-2021 Fluoroscopic guidance Start: 12-01-2021 CT of abdomen and pe lvis without contrast Start: 04-22-2003 History of placement of stent for coronary artery disease History of coronary artery stent placement Dr. Elmer Gillette MD Work Phone: Comment on above: 3 stents to RCA 04/22 Plan of Treatment Date Care Activity Detail Author Start: 11-10-2024 Liver elastography w/o imag w/i&r LIVER ELASTOGRAPHY [facility] Start: 08-22-2024 Anes esoph thyrd larynx trach & lymph neck 1yr ANESTH NECK ORGAN 1YR/> [facility] Start: 08-22-2024 Parathyroidectomy/exploration parathyroids EXPLORE PARATHYROID GLANDS [facility] Start: 08-22-2024 Patient discharge [facility] Start: 12-06-2021 Patient discharge [facility] Work Phone: Start: 12-06-2021 End: 12-06-2021 [facility] Work Phone: Start: 12-06-2021 Ambulation without limitation [facility] Work Phone: Start: 12-06-2021 Medication education [facility] Work Phone: Start: 12-06-2021 Taking patient vital signs [facility] Work Phone: Start: 12-06-2021 Anes transurethral w/urethrocystoscopy nos ANESTH BLADDER SURGERY [facility] Work Phone: Start: 12-06-2021 Cysto w/insert ureteral stent CYSTOSCOPY AND TREATMENT [facility] Work Phone: DXA Bone [Mass/Area] Bone density [facility] Electrocardiographic procedure [facility] Patient Education ED Kidney Ston e w/ Colic [facility] Work Phone: Patient referral [facility] Work Phone: Immunizations Immunization Date Immunization Notes Care Provider Rema acosta 05-04-2014 tetanus and diphther ia toxoids, adsorbed, preservative free, for adult use (2 Lf of tetanus toxoid and 2 Lf of diphtheria toxoid) [facility] Payers Date Payer Category Payer Self-pay [id number] 2023 Medicare [id number] Unknown [id number] 2011 Medicare [id number] 1945 Unknown [id number] 2.16.8 [id number] Unknown [id number] 2.16.8 [id number] Unknown [id number] 2.16.8 [id number] Unknown [id number] 2.16.8 [id number] Unknown [id number] 2.16.8 [id number] Unknown [id number] 2.16.8 [id number] Unknown [id number] 2.16.8 [id number] Unknown [id number] 2.16.8 [id number] Unknown [id number] 2.16.8 [id number] Unknown [id number] 2.16.8 [id number] Unknown [id number] 2.16.8 [id number] Unknown [id number] 2.16.8 [id number] Unknown [id number] 2.16.8 [id number] Unknown [id number] 2.16.8 [id number] Unknown [id number] 2.16.8 [id number] Unknown [id number] 2.16.8 [id number] Unknown [id number] 2.16.8 [id number] Unknown [id number] 2.16.8 [id number] Unknown [id number] 2.16.8 [id number] Unknown [id number] 2.16.8 [id number] Social History Date Type Detail Facility Start: 12-01-2021 End: 09-13-2023 Tobacco smoking status NHIS Unknown if ever smoked [facility] Start: 04-18-2015 None [facility] Start: 04-18-2015 Spouse/ Signif icant Other [facility] Start: 05-26-2020 Non-smoker [facility] Start: 1945 Sex Assigned At Male A [facility] Tobacco smoking status No Smoking Status Entered [facility] Start: 08-14-2024 End: 08-14-2024 Tobacco smoking status NHIS Never smoked tobacco (finding) [facility] Start: 10-11-2024 End: 11-13-2024 Sex Male (finding) [facility] Medical Equipment Procedure Code Equipment Code Equipment Original Text Equipment Identifier Dates Parathyroidectomy DRESSING,SURGI CE L 4x8 FDA Start: 08-22-2024 Parathyroidectomy Ligation clip, metallic ()[id number] FDA Start: 08-22-2024 Parathyroidectomy Ligation clip, metallic ()[id number] [id number] FDA Start: 08-22-2024 Parathyroidectomy DRESSING,SURGI CE L 4x8 FDA Start: 08-22-2024 Parathyroidectomy DRESSING,SURGI CE L 4x8 FDA Start: 08-22-2024 Cystoscopy, with retrograde pyelogram and ureteral stent insertion STENT,URETERAL PIGTAIL 6FRx26 FDA Start: 12-06-2021 Cystoscopy, with retrograde pyelogram and ureteral stent insertion STENT,URETERAL PIGTAIL 6FRx26 FDA Start: 12-06-2021 Cystoscopy, with retrograde pyelogram and ureteral stent insertion STENT,URETERAL PIGTAIL 6FRx26 FDA Start: 12-06-2021 Cystoscopy, with retrograde pyelogram and ureteral stent insertion STENT,URETERAL PIGTAIL 6FRx26 FDA Start: 12-06-2021 Cystoscopy, with retrograde pyelogram and ureteral stent insertion STENT,URETERAL PIGTAIL 6FRx26 FDA Start: 12-06-2021 Cystoscopy, with retrograde pyelogram and ureteral stent insertion STENT,URETERAL PIGTAIL 6FRx26 FDA Start: 12-06-2021 Cystoscopy, with retrograde pyelogram and ureteral stent insertion STENT,URETERAL PIGTAIL 6FRx26 FDA Start: 12-06-2021 Cystoscopy, with retrograde pyelogram and ureteral stent insertion STENT,URETERAL PIGTAIL 6FRx26 FDA Start: 12-06-2021 Cystoscopy, with retrograde pyelogram and ureteral stent insertion STENT,URETERAL PIGTAIL 6FRx26 FDA Start: 12-06-2021 Goals Date Patient Goal Desired Activity /State Mental Status Date Assessment Result Facility 08-22-2024 Cognitive function Voice/Name [facility] Work Phone: 11-14-2023 Cognitive function Awake;Alert;A ppropriate;Fol lows Commands [facility] Work Phone: 12-06-2021 Cognitive function Voice/Name [facility] Work Phone: Clinical Notes 07-02-2023 to 11-10-2024 Note Date & Type Note Facility 11-10-2024 Radiology Diagnostic study note [facility] Imaging Services [address] [place] [address] Elastography Parenchyma/Organ MR#: [id number] Acct: [id number] Name: YAHAIRA MORFIN Rep #: [id number] : 1945 M 78 From: Radha Moore MD PCP: Dr. Elmer Gillette MD Status: REG C ANISH Study:Elastography Parenchyma/Organ Date of E xam: 11/10/24 Exam# [id number] Ordering Dr: Elmer Gillette MD PROCEDURE: ELASTOGRAPHY PARENCHYMA/ORGAN (USELPAROG), 11/10/2024 REASON FOR EXAM: ELEVATED LIVER ENZYMES COMPARISON: 10/03/2024 TECHNIQUE: [employer] S-shear wave elastography was performed for non-invasive assessment of liver tissue stiffness. FINDINGS: Number of measurements: 15 measurements across three regions, five measurements per region. US probe: CA1-7A. EQI median: 7.17 kPa EQI median velocity: 1.54 m/s IQR/Med: 12.7-17.4% (kPa) and 6.0-8.6% (m/s). If the IQR/Med is IQR/median >30% (for kPa) or >15% in m/s, the variance in the measurements is a large and the accuracy of the measurement may be in question. US/Elastography Parenchyma/Organ IMPRESSION: 1. Liver stiffness is 7.17 kPa. Per the below 2020 SRU criteria, this rules out compensated advanced chronic liver disease in the absence of other known clinical signs. If there are known clinical signs, further testing may be needed for confirmation. 2. Additional description as above. Assessment is per the Update to the SRU Liver Elastography Consensus Statement (2020) Note that the above assessment of liver fibrosis is vendor-neutral and intended for use in fibrosis related to viral etiologies and non-alcoholic fatty-liver disease (NAFLD); in causes other than viral hepatitis and NAFLD, the cutoff values are currently not well established. In some patients with NAFLD, the cutoff values for cACLD may be lower (7-9 kPa). Note also that in the setting of elevated LFTs, nonfasting or vascular congestion, the stage of lifer fibrosis may be overestimated. Previous U reference values: <1.37 m/s (5.7kPa): No to mild fibrosis 1.37 m/s - 2.2 m/s: Moderate to severe fibrosis >2.2 m/s (15kPa): Significant fibrosis / cirrhosis Reading Location: [facility] CC: Dr. Emler Gillette MD ~ Coil Taper: Signed [facility] 10-03-2024 Radiology Diagnostic study note [facility] Imaging Services [address] [place] [id number] Abdomen Limited MR#: [id number] Acct: [id number] Name: YAHAIRA MORFIN Rep #: [id number] : 1945 M 78 From: Sancho Ayers MD PCP: Dr. Elmer Gillette MD Status: PATRICIO OCONNELL Study:Abdomen Limited Date of Exam: 09/07 03/30 Exam# [id number] Ordering Dr: Elmer Gillette MD PROCEDURE: ABDOMEN LIMITED REASON FOR EXAM: Elevated liver enzymes. COMPARISON: None FINDINGS: Liver: Diffusely echogenic suggesting fatty infiltration. Gallbladder: Solitary gallstone measuring 3 mm x 3 mm x 3 mm. There is also evidence of a 4 mm x 3 mm x 3 mm gallbladder polyp. Common bile duct: Normal measuring 4.8 mm. Pancreas: Visualized portions are sonographically unremarkable. The right kidney measures 11.3 cm x 5.3 cm x 5.9 cm. The renal cortex measures 1.3 cm. 3 cysts are seen in the right kidney. The larger measures 1.4 cm x 1.5 cm x 1 cm. This is in the inferior pole. Incidental note is made of a nonobstructive right intrarenal calculus measuring 5 mm x 6 mm x 3 mm. No right upper quadrant ascites. US/Abdomen Limited IMPRESSION: Solitary gallstone. Small gallbladder polyp. Fatty infiltration of the liver. Right renal cysts and nonobstructive right intrarenal calculus. Reading Location: [facility] CC: Dr. Elmer Gillette MD ~ Coil Taper: Signed [facility] 08-22-2024 Note [facility] Medical Records Department [address] [place] [address] History Physical Exam 08/22/24 0648 MR#: [id number] Acct: [id number] Name: BETOYAHAIRA Mena Rep #: [id number] : 1945 78 From: Kamaljit Koehler MD PCP: Dr. Elmer Gillette MD Status:[facility] Location: [place] [address] History and Physical Date of Admission: 08/22/24 Date of Service: 08/01/24 MR#: [id number] Acct: [id number] Name: BETOYAHAIRA Rep #: [id number] : 1945 Provider: Dr. Kamaljit Koehler MD Age/Sex: 78/M Location: 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 Is patient in pain?: No Allergies No Known Allergies Allergy (Verified 08/01/24 08:11) Medications ???Medication ???Instructions ???Recorded ???Confirmed ???Type metoprolol tartrate 25 mg tablet 25 mg PO BID ##0 04/19/15 08/01/24 Rx aspirin 81 mg tablet,delayed 81 mg PO DAILY 09/03/23 08/01/24 History release rosuvastatin 40 mg tablet 40 mg PO DAILY 09/03/23 08/01/24 History zoledronic acid 5 mg/100 mL in 1 ea .Route ONCE #100 mL 11/05/23 08/01/24 Rx mannitol 5 %-water intravenous piggybck ascorbic acid (vitamin C) 500 mg mg PO 12/11/23 08/01/24 History capsule amlodipine 5 mg tablet 5 mg PO DAILY 12/27/23 08/01/24 History cholecalciferol (vitamin D3) 25 50 mcg PO DAILY 05/13/24 08/01/24 History mcg (1,000 unit) tablet omega 9-bch-kxh-fish oil 1,200 mg cap PO BID 05/13/24 08/01/24 History (144 mg-216 mg) capsule (Fish Oil) Have you fallen in the past year?: No PFSH Medical History COVID-19 ( 09/2022) MARLYS on CPAP Vitamin D deficiency Atherosclerosis of coronary artery of [place] heart without angina pectoris Primary hyperparathyroidism History of deep vein thrombosis of lower extremity Kidney stones Condyloma acuminata Hyperlipidemia Hyperparathyroidism RLS (restless legs syndrome) Sleep apnea Dog bite DVT (deep venous thrombosis) Surgical History History of colonoscopy (06/02/20) History of coronary artery stent placement (04/22/03) s/p shrapnel removal S/P hernia repair Status post hemorrhoidectomy Family History Mother Breast cancer Alzheimer diseaseSister Breast cancer Myocardial infarctionFather Myocardial infarction Alcohol abuse Social History Smoking Status: Never smoker alcohol intake: never substance use type: does not use caffeine: Yes Type: coffee Number of servings: 2 HPI HPI HPI: Patient is a 78-year-old male who presents for hyperparathyroidism. Patient presents today with his . He initially denies any significant health updates but later in the encounter, offhandedly, mentions that he was diagnosed with kidney stones a couple weeks ago. He shares that they are presently asymptomatic. In the interim since his last visit Mr. Morfin completed a SPECT-CT with sestamibi 07/17/2024 with the following result: 1. ABNORMAL 99m Tc SESTAMIBI [id number] PARATHYROID IMAGING DUAL PHASE EXAMINATION. 2. 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 Below is recapitulated from patient's consultation visit that was made 06/10/2024: Patient is a 78-year-old male who presents for hyperparathyroidism. They are referred from Dr. Jared Padilla. Patient has a history of osteoporosis with a T-score of -2.6 from study performed 10/25/2023. Patient has no history of pathologic fractures (notes a remote left broken arm 40 to 50 years ago). Patient has a history of kidney stones over several episodes. Patient has a history of frequent dental caries or chipped teeth and shares that he had the remainder of his teeth removed 3 years ago and now proceeds with 2 plates. Patient has no history of brittle fingernails. Patient has no history of GERD. Patient has a history of hypertension. 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 [facility] 08-01-2024 Evaluation note Diagnosis Onset Date Resolution Primary hyperparathyroidism chronic August 01, 2024 8:06am Hypoparathyroidism after procedure acute September 03, 2024 10:02am Status post parathyroidectomy acute September 03, 2024 10:02am [facility] Work Phone: 1(570) 712-503112-27-2024 Evaluation note* Diagnosis Onset Date Resolution Status Admit Date Primary hyperparathyroidism chronic August 01, 2024 8:06am Hypoparathyroidism after procedure acute September 03 10:02am Status post parathyroidectomy chroni c September 03, 2024 10:02am Osteoporosis chronic November 11 7:49am Status post parathyroidectomy chroni c November 11, 2024 7:49am [facility] Work Phone: 1(531) 772-209511-27-2023 Note ORIGINAL EXAMINATION: RIGHT UPPER QUADRANT ULTRASOUND 07/02/2023 8:53 am COMPARISON: None. HISTORY: ORDERING SYSTEM PROVIDED HISTORY: Reason for Exam: INCREASED POTASSIUM FINDINGS: LIVER: The liver demonstrates normal echogenicity without evidence of intrahepatic biliary ductal dilatation. There is a well-defined anechoic lesion within the liver up to 1.1 cm consistent with a hepatic cyst. BILIARY SYSTEM: There is an echogenic focus within the gallbladder that appears to demonstrate posterior acoustic shadowing suggestive of a gallstone up to 0.5 cm. No gallbladder wall thickening or pericholecystic fluid. Negative sonographic Jordan's sign. Common bile duct is within normal limits measuring . RIGHT KIDNEY: The right kidney demonstrates no hydronephrosis. There is a 1.1 cm simple renal cyst. Echogenic focus within the renal cortex consistent with nephrolithiasis up to 0.7 cm. PANCREAS: Visualized portions of the pancreas are unremarkable. OTHER: No evidence of right upper quadrant ascites. IMPRESSION: Cholelithiasis at 0.5 cm. No evidence of acute cholecystitis. Nephrolithiasis up to 0.7 cm. No hydronephrosis. I have personally reviewed the images of this examination and agree with the resident's findings and interpretation. 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 Please return to the ER should you develop a fever over 100.4 or your pain is not controlled [facility] Phone[facility] Work Phone: Hospital Discharge instructions No data available for this section [facility] Progress note No data available for this section [facility] Reason for referral (narrative)No reason for referral information availableWGal[facility] Work Phone: Summary Purpose Family History No Family History Records Found Relationship Condition Age at Onset Recorded Date/T noy mother Malignant neoplasm of breast Unknown sister Malignant neoplasm of breast Unknown Relationship Condition Age at Onset Recorded Date/T noy mother Malignant neoplasm of breast Unknown Alzheimer's disease Unknown sister Malignant neoplasm of breast Unknown Myocardial infarction Unknown father Myocardial infarction Unknown Alcohol abuse Unknown Advance Directives No Advanced Directives Records Found Advance Directive Response Recorded Date/ Time Advance Directives Yes April 12:42am Living Will Yes December 01, 2021 12:52am Power of Director Sales Support No December 01 12:52am Advance Directive Response Recorded Date/ Time Advance Directives Yes April 12:42am Living Will No December 06, 2021 2: 57pm Power of Director Sales Support No December 06, 2021 2:57pm Advance Directive Response Recorded Date/ Time Advance Directives Yes April 11:42pm Living Will No December 06, 2021 1: 57pm Power of Director Sales Support No December 06, 2021 1:57pm Advance Directive Response Recorded Date/ Time Living Will Yes August 14 1:38pm Power of Director Sales Support Yes August 14 2 025 1:38pm Name of Medical Power of Director Sales Support DTR August 14, 2024 1:38pm Advance Directives Yes April 11:42pm Advance Directive Response Recorded Date/ Time Living Will Yes August 14 2:38pm Power of Director Sales Support Yes August 14 2 025 2:38pm Name of Medical Power of Director Sales Support DTR August 14, 2024 2:38pm Advance Directives Yes April 12:42am Advance Directive Response Recorded Date/ Time Living Will No December 06, 2021 2: 57pm Do you have a Healthcare Power of Director Sales Support? No December 06, 2021 2:57pm Living Will Yes August 14 2:38pm Do you have a Healthcare Power of Director Sales Support? Yes August 14, 2024 2:38pm Name of Medical Power of Director Sales Support DTR August 14, 2024 2:38pm Advance Directives Yes April 12:42am Chief Complaint and Reason for Visit Chief Complaint RIGHT FLANK PAIN Chief Complaint RIGHT FLANK PAIN PREOP-ORDER FAXING TO X8276 right flank pain Chief Complaint RIGHT FLANK PAIN PREOP-ORDER FAXING TO X8276 PREOP-ORDER FAXING TO X8276 right flank pain NEW PT - HX OF PE MED ONC HISTORY OF VENOUS THROMBOSIS AND EMBOLISM Reason for Visit History of deep vein thrombosis of lower extremity Chief Complaint Calcium Reason for Visit Kidney stones Primary hyperparathyroidism Chief Complaint Calcium Primary hyperparathyroidism Reason for Visit Kidney stones Primary hyperparathyroidism Chief Complaint Calcium Primary hyperparathyroidism RECLAST Reason for Visit Kidney stones Primary hyperparathyroidism Chief Complaint Admit Date E21.3 July 17, 2024 8:43am DISCUSS SURGERY August 01, 2024 8:06am PREOP August 15, 2024 7 :51am Parathyroidectomyw/IONM & PTH monitoring August 22, 2024 6:01am Parathyroidectomyw/IONM & PTH monitoring August 22, 2024 6:48am Parathyroidectomy DOS 08/22September 03, 2024 10:02am INT LABS September 10, 2024 7 :50am E-ORDER September 29, 2024 3:41pm ELEVATED LIVER ENZYMES October 03 7:10am Reason for Visit Admit Date Primary hyperparathyroidism July 8:06am Hypoparathyroidism after procedure Ramin ry 2024 10:02am Status post parathyroidectomy September 032024 10:02am Chief Complaint Admit Date E21.3 July 17, 2024 8:43am DISCUSS SURGERY August 01, 2024 8:06am PREOP August 15, 2024 7 :51am Parathyroidectomyw/IONM & PTH monitoring August 22, 2024 6:01am Parathyroidectomyw/IONM & PTH monitoring August 22, 2024 6:48am Parathyroidectomy DOS 08/22September 03, 2024 10:02am INT LABS September 10, 2024 7 :50am E-ORDER September 29, 2024 3:41pm ELEVATED LIVER ENZYMES October 03 7:10am ELIVATED LIVER ENZYMES November 10, 2024 7 :09am 6 M FU November 11, 2024 7:49 am Reason for Visit Admit Date Primary hyperparathyroidism July 8:06am Hypoparathyroidism after procedure Ramin ry 2024 10:02am Status post parathyroidectomy September 032024 10:02am Osteoporosis November 11, 2024 7:49 am Status post parathyroidectomy November 11, 2024 7:49am Additional Source Comments (unrecognized sect ion and content) No Status Records FoundNo Status Records FoundNo Status Records Found INFORMATION SOURCE (unrecogn ized section and content) DATE CREATED AUTHOR 02/02/2018 [facility] ([place]) DATE CREATED AUTHOR AUTHOR'S ORGANIZ ATION 07/04/2023 [facility] ([place]) DATE CREATED AUTHOR AUTHOR'S ORGANIZ ATION 11/15/2024 [facility] Goals (unrecognized section and content) Goals may be documented in a n alternate sectionGoals may be documented in an alternate sectionGoals may be documented in an alternate section No data available for this sectionGoals may be documented in an alternate sectionGoals may be documented in an alternate sectionGoals may be documented in an alternate section Care Teams (unrecognized sec tion and content) Team Status: Active Member Role Status Dates Dr. Elmer Gillette MD Primary Care Provider Active Team Status: Inactive Member Role Status Dates Dr. Elmer Gillette MD Primary Care Provider Active Start: June 13, 2024 End: June 13, 2024 Dr. Elmer Gillette MD Attending Provider Active Start: June 13, 2024 End: June 13, 2024 Team Status: Inactive Member Role Status Dates Dr. Elmer Gillette MD Primary Care Provider Active Start: July 17, 2024 End: July 17, 2024 Dr. Kamaljit Koehler MD Attending Provider Active Start: July 17, 2024 End: July 17, 2024 Dr. Kamaljit Koehler MD Referring Provider Active Start: July 17, 2024 End: July 17, 2024 Team Status: Inactive Member Role Status Dates Dr. Elmer Gillette MD Primary Care Provider Active Start: August 01, 2024 End: August 01, 2024 Dr. Elmer Gillette MD Referring Provider Active Start: August 01, 2024 End: August 01, 2024 Dr. Kamaljit Koehler MD Attending Provider Active Start: August 01, 2024 End: August 01, 2024 Team Status: Active Member Role Status Dates Dr. Elmer Gillette MD Primary Care Provider Active Start: August 15, 2024 End: August 15, 2024 Dr. Kamaljit Hendricks MD Attending Provider Active Start: August 15, 2024 End: August 15, 2024 Dr. Live Muñoz MD Referring Provider Active St art: August 15, 2024 End: August 15, 2024 Team Status: Inactive Member Role Status Dates Dr. Elmer Gillette MD Primary Care Provider Active Start: August 22, 2024 End: August 22, 2024 Dr. Kamaljit Koehler MD Attending Provider Active Start: August 22, 2024 End: August 22, 2024 Dr. Kamaljit Koehler MD Referring Provider Active Start: August 22, 2024 End: August 22, 2024 Dr. Live Muñoz MD Other Provider Active Start: August 22, 2024 End: August 22, 2024 Team Status: Active Member Role Status Dates Dr. Elmer Gillette MD Primary Care Provider Active Start: August 22, 2024 Dr. Kamaljit Koehler MD Attending Provider Active Start: August 22, 2024 Dr. Kamaljit Koehler MD Referring Provider Active Start: August 22, 2024 Dr. Kamaljit Koehler MD Other Provider Active Sta rt: August 22, 2024 Dr. Live Muñoz MD Other Provider Active Start: August 22, 2024 Team Status: Inactive Member Role Status Dates Dr. Elmer Gillette MD Primary Care Provider Active Start: September 03, 2024 End: September 03, 2024 Dr. Elmer Gillette MD Referring Provider Active Start: September 03, 2024 End: September 03, 2024 Dr. Kamaljit Koehler MD Attending Provider Active Start: September 03, 2024 End: September 03, 2024 Team Status: Inactive Member Role Status Dates Dr. Elmer Gillette MD Primary Care Provider Active Start: September 03, 2024 End: September 03, 2024 Dr. Kamaljit Koehler MD Attending Provider Active Start: September 03, 2024 End: September 03, 2024 Dr. Kamaljit Koehler MD Referring Provider Active Start: September 03, 2024 End: September 03, 2024 Team Status: Inactive Member Role Status Dates Dr. Elmer Gillette MD Primary Care Provider Active Start: September 10, 2024 End: September 10, 2024 Migdalia MORALES PA-C Attending Provider Active Start: September 10, 2024 End: September 10, 2024 Migdalia MORALES PA-C Referring Provider Active Start: September 10, 2024 End: September 10, 2024 Team Status: Inactive Member Role Status Dates Dr. Elmer Gillette MD Primary Care Provider Active Start: September 15, 2024 End: September 15, 2024 Dr. Kamaljit Koehler MD Attending Provider Active Start: September 15, 2024 End: September 15, 2024 Dr. Kamaljit Koehler MD Referring Provider Active Start: September 15, 2024 End: September 15, 2024 Team Status: Inactive Member Role Status Dates Dr. Elmer Gillette MD Primary Care Provider Active Start: September 29, 2024 End: September 29, 2024 Dr. Jared Padilla MD Attending Provider Active Sta rt: September 29, 2024 End: September 29, 2024 Dr. Jared Padilla MD Referring Provider Active Sta rt: September 29, 2024 End: September 29, 2024 Team Status: Active Member Role Status Dates Dr. Elmer Gillette MD Primary Care Provider Active Start: October 03, 2024 Dr. Elmer Gillette MD Attending Provider Active Start: October 03, 2024 Dr. Elmer Gillette MD Referring Provider Active Start: October 03, 2024 Team Status: Active Member Role Status Dates [facility] Family Provider Active Dr. Elmer Gillette MD Primary Care Provider Active Team Status: Inactive Member Role Status Dates [facility] Referring Provider Active Dr. Jared Padilla MD Attending Provider Active Dr. Elmer Gillette MD Primary Care Provider Active Team Status: Inactive Member Role Status Dates Dr. Jared Padilla MD Attending Provider Active Team Status: Inactive Member Role Status Dates Dr. Elmer Gillette MD Primary Care Provider, Attending Provider Active FOR RECORDS PERTAINING TO PATIENTS WHO ARE OR HAVE BEEN ENROLLED IN A CHEMICAL DEPENDENCY/SUBSTANCEABUSE PROGRAM, SOME INFORMATION MAY BE OMITTED. This clinical summary was aggregated from multiple sources. Caution should be exercised in using it in the provision of clinical care. This summary normalizes information from multiple sources, and as a consequence, information in this document may materially change the coding, format and clinical context of patient data. In addition, data may be omitted in some cases. CLINICAL DECISIONS SHOULD BE BASED ON THE PRIMARY CLINICAL RECORDS. [employer] provides no warranty or guarantee of the accuracy or completeness of information in this document.
== END | disposition home or self-care (01) ==
LOC: PSN 06:52
PROVIDERS: PCP Family Medicine Geriatric Medicine; Referring Provider Family Medicine Geriatric Medicine; Visit Provider Family Medicine Geriatric Medicine
DX: R07.9 Chest pain, unspecified (principal)
CPT/HCPCS: 93005

== ENCOUNTER → 2025-03-31 | Outpatient (CLI) | payer MEDICARE, SELFPAY ==
--- OUTSIDE RECORDS SUMMARY | 2025-03-31 06:18 | XMS RPT_ITS | CCD ---
Author Organization [facility] Care Team Providers Care Chemical Handler Name Role Phone HUSEYIN RILEY [place], [place] Primary Care Provider UnavailDr. Yeni Mathew Attending Provider [phone] Dr. Obdulio Smith Referring Provider Dr. Drake Monique Attending Provider Dr. Thad Alonzo Attending Provider PHYSICIAN, NONE Primary Care Physician Unavail lore HALL MD, [facility] Attending [facility] PHYSICIAN, NONE Primary Care [facility], [place] Referring Provider Unavailable Dr. Jared Padilla Attending Provider Dr. Elmer Gillette Chi Primary Care Provider [place], [place] Referring Provider Unavailable Dr. Jared Padilla [...] Dr. Kamaljit Koehler MD Other Provider [phone] Migdalia Dunlap PA-C Attending Provider Dunlap PA-C, Migdalia Referring Provider King MELINDA, Dr. Coleman Attending Provider Unavailable King MELINDA, Dr. Coleman Referring Provider Melquiades LAWRENCE, Dr. Elmer Multani Primary Care Provider [phone] Rodo LAWRENCE, Dr. Mari Attending Provider Rodo LAWRENCE, Dr. Mari Referring Provider Melquiades LAWRENCE, Dr. Elmer Multani Referring Provider Ruthie LAWRENCE, Dr. Mari Attending Provider Wanda LAWRENCE, Dr. Mancini Referring Provider Wanda LAWRENCE, Dr. Mancini Other Provider Rodo LAWRENCE, Dr. Mari Other Provider Dunlap PA-C, Migdalia Attending Provider Dunlap PA-C, Migdalia Referring Provider King MELINDA, Dr. Coleman Attending Provider Unavailable King MELINDA, Dr. Coleman Referring Provider Melquiades LAWRENCE, Dr. Elmer Multani Attending Provider King MELINDA, Dr. Coleman Attending Provider Melquiades LAWRENCE, Dr. Elmer Multani Primary Care Provider [phone] Melquiades LAWRENCE, Dr. Elmer Multani Attending Provider [phone] Melquiades LAWRENCE, Dr. Elmer Multani Referring Provider Ruthie LAWRENCE, Dr. Mari Attending Provider Jenna MADRIGAL-Huseyin Romo Attending Provider Melquiades, Elmer Chi Attending Unavailable Melquiades, Elmer Chi Primary Care Unavailable Melquiades, Elmer Chi Referring Unavailable Melquiades, Elmer Chi Primary Care Unavailable Melquiades, Elmer Chi Referring Unavailable Jared Padilla Attending Unavailable Melquiades, Elmer Chi Primary Care Unavailable Melquiades, Elmer Chi Referring Unavailable Jared Padilla Attending Unavailable Melquiades, Elmer Chi Attending Unavailable Melquiades, Elmer Chi Primary Care Unavailable Kamaljit Koehler Attending Unavailable Kamaljit Koehler Referring Unavailable Melquiades, Elmer Chi Primary Care Unavailable Live Muñoz Consulting Unavailable Melquiades, Elmer Chi Attending Unavailable Melquiades, Elmer Chi Primary Care Unavailable Melquiades, Elmer Chi Referring Unavailable Huseyin West NP Consulting Unavailable Melquiades, Elmer Chi Primary Care Unavailable Randy, Jared Attending Unavailable Randy, Jared Referring Unavailable Melquiades, Elmer Chi Primary Care Unavailable Melquiades, Elmer Chi Referring Unavailable Melquiades, Elmer Chi Attending Unavailable Melquiades, Elmer Chi Primary Care Unavailable Melquiades, Elmer Chi Referring Unavailable Roof MACHINIST HELPER, Huseyin Zuñiga Attending Unavailable Melquiades, Elmer Chi Referring Unavailable Melquiades, Elmer Chi Primary Care Unavailable Kamaljit Koehler Attending Unavailable Melquiades, Elmer Chi Primary Care Unavailable Melquiades, Elmer Chi Referring Unavailable Melquiades, Elmer Chi Attending Unavailable Melquiades, Elmer Chi Primary Care Unavailable Randy, Jared Referring Unavailable Randy, Jared Attending Unavailable Kamaljit Koehler Attending Unavailable Melquiades, Elmer Chi Referring Unavailable Melquiades, Elmer Chi Primary Care Unavailable Kamaljit Koehler Attending Unavailable Melquiades, Elmer Chi Primary Care Unavailable Randy, Jared Referring Unavailable Melquiades, Elmer Chi Primary Care Unavailable Melquiades, Elmer Chi Referring Unavailable Kamaljit Hendricks Attending Unavailable Melquiades, Elmer Chi Primary Care Unavailable Live Muñoz Referring Unavailable Kamaljit Hendricks Attending Unavailable Kamaljit Koehler Attending Unavailable Kamaljit Koehler Referring Unavailable Melquiades, Elmer Chi Primary Care Unavailable Live Muñoz Consulting Unavailable Kamaljit Koehler Consulting Unavailable Kamaljit Koehler Referring Unavailable Kamaljit Koehler Attending Unavailable Melquiades, Elmer Chi Primary Care Unavailable Kamaljit Koehler Attending Unavailable Kamaljit Koehler Referring Unavailable Melquiades, Elmer Chi Primary Care Unavailable Melquiades, Elmer Chi Primary Care Unavailable Migdalia Bray Referring Unavailable Migdalia Bray Attending Unavailable Kamaljit Koehler Attending Unavailable Kamaljit Koehler Referring Unavailable Melquiades, Elmer Chi Primary Care Unavailable Melquiades, Elmer Chi Primary Care Unavailable Melquiades, Elmer Chi Referring Unavailable Melquiades, Elmer Chi Attending Unavailable Medications Current Medications Medication Drug Class(es) Dates Sig (Normalized) Sig (Original) amLODIPine 5 mg oral tablet (16 sources) Dihydropyridine Calcium Channel García Start: 12-27-2023 take 1 tablet by mouth once daily Amlodipine 5 mg tablet Active 5 mg PO DAILY December 27, 2023 12:00am Start: 01-27-2022 End: 09-03-2023 take 1 tablet by mouth once daily Amlodipine 2.5 mg tablet Discontinued 2.5 mg PO DAILY January 27, 2022 12:00am September 03, 2023 12:36pm ascorbic acid 500 mg oral capsule (19 sources) Vitamin C Start: 12-11-2023 take 1 [...] aspirin 81 mg delayed release oral tablet (20 sources) Platelet Aggregation Inhibitor, Nonsteroidal Anti-inflammatory Drug Start: 09-03-2023 take 1 tablet by mouth once daily Aspirin 81 mg tablet,delayed release (DR/EC) Active 81 mg PO DAILY September 03, 2023 1:00am Start: 05-22-2014 End: 05-20-2020 take 1 tablet by mouth once daily Aspirin 81 MG tablet,chewable Discontinued 81 mg PO DAILY@0800 May 22, 2014 12:00am May 20, 2020 2:28pm Anticoagulant cholecalciferol 0.025 mg oral tablet (20 sources) Vitamin D Start: 05-13-2024 take 1 [...] L.Acid-L.Rham-B.Breve-S.Ther m (Probiotic) 3 billion cell Tablet,Chewable (13 sources) Start: 12-01-2021 take 3 tablets by mouth once daily L.Acid-L.Rham-B.Breve-S.Therm (Probiotic) 3 billion cell Tablet,Chewable Active 1 TABLET PO DAILY December 01, 2021 2:26am Start: 12-01-2021 End: 01-29-2024 take 3 tablets by mouth once daily [...] 25 mg PO TWICE A DAY 0 0 April 19, 2015 3:44pm Start: 05-04-2014 End: 04-19-2015 take 1 tablet by mouth once daily Metoprolol Tartrate 25 MG tablet Discontinued 25 mg PO DAILY May 04, 2014 12:00am April 19, 2015 3:44pm Multivitamin (Daily Multi-Vitamin) tablet (6 sources) Start: 08-14-2024 Multivitamin ( Daily Multi-Vitamin) tablet Active 1 {tbl} PO DAILY August 14, 2024 1:00am Start: 08-14-2024 Multivitamin ( Daily Multi-Vitamin) tablet Active 1 {tbl} PO DAILY August 14, 2024 12:00am [place]-3 Fatty Acids 1,000 mg capsule (1 source) Start: 03-05-2025 take 1 capsule by mouth twice daily [place]-3 Fatty Acids 1,000 mg capsule Active 1000 mg PO TWICE A DAY March 05, 2025 12:00am pantoprazole 40 mg delayed release oral tablet (1 source) Proton Pump Inhibitor Start: 03-05-2025 take 1 tablet by mouth once daily Pantoprazole 40 mg tablet,delayed release (DR/EC) Active 40 mg PO daily March 05, 2025 12:00am rosuvastatin calcium 40 mg oral tablet (20 sources) HMG-CoA Reductase Inhibitor Start: 09-03-2023 take 1 tablet by mouth once daily Rosuvastatin 40 mg tablet Active 40 mg PO DAILY September 03, 2023 1:00am Start: 05-04-2014 End: 09-03-2023 Rosuvastatin 5 MG tablet Discontinued 40 mg PO AT BEDTIME May 04, 2014 12:00am September 03, 2023 12:38pm Cholesterol Start: 05-04-2014 End: 09-03-2023 take 40 mg [...] PO Q4H as needed for Pain 12 2 December 10, 2021 March 07, 2022 3:34pm Renal colic on right side Unspecified renal colic Start: 12-10-2021 End: 03-07-2022 take 1 tablet by mouth every four hours Oxycodone-Acetaminophen Discontinued 1 TABLET PO Q4H 12 December 10, 2021 March 07, 2022 3:34pm Start: 12-06-2021 End: 09-03-2023 take 1 tablet by mouth every six hours Oxycodone-Acetaminophen Discontinued 1 TABLET PO EVERY 6 HOURS 14 7 December 06, 2021 September 03, 2023 12:37pm Start: 12-01-2021 End: 09-03-2023 Oxycodone-Acetaminophen 5-32 5 mg tablet Discontinued 1 {tbl} PO EVERY 6 HOURS as needed for pain 14 7 0 December 06, 2021 September 03, 2023 12:37pm Calculus of right kidney Calculus of kidney Start: 04-16-2015 End: 05-20-2020 Oxycodone-Acetaminophen 1 TA BLET tablet Discontinued 1 {tbl} PO EVERY 4 HOURS NEEDED as needed for Pain 14 0 April 19, 2015 3:47pm May 20, 2020 2:29pm Start: 04-16-2015 End: 05-20-2020 take 1 tablet by mouth every four hours as needed Oxycodone-Acetaminophen Discontinued 1 TABLET PO EVERY 4 HOURS NEEDED 14 April 19, 2015 3:47pm May 20, 2020 2:29pm calcitriol 0.81901 mg oral capsule (6 sources) Vitamin D3 Analog Start: 08-22-2024 End: 11-11-2024 take 1 capsule by mouth once daily Calcitriol 0.25 mcg capsule Discontinued 0.25 ug PO DAILY 15 15 0 August 22, 2024 1:00am November 11, 2024 7:55am Primary hyperparathyroidism Hypoparathyroidism after procedure Primary hyperparathyroidism Postprocedural hypoparathyroidism calcium carbonate 1250 mg / cholecalciferol 600 unt oral tablet (6 sources) Vitamin D Start: 08-22-2024 End: 11-11-2024 Calcium Carbonate-Vitamin D3 (Os-Adelso 500 + D3) 500 mg-15 mcg (600 unit) tablet Discontinued 2 {tbl} PO TWICE A DAY 60 15 0 August 22, 2024 1:00am November 11, 2024 7:56am Primary hyperparathyroidism Primary hyperparathyroidism cephalexin 500 mg oral capsule (13 sources) Cephalosporin Antibacterial Start: 12-01-2021 End: 03-07-2022 take 1 capsule by mouth three times daily Cephalexin 500 mg capsule Discontinued 500 mg PO THREE TIMES A DAY 21 7 0 December 01, 2021 12:00am March 07, 2022 3:34pm ciprofloxacin 500 mg oral tablet (20 sources) Quinolone Antimicrobial Start: 12-06-2021 End: 03-07-2022 take 1 tablet by mouth twice daily Ciprofloxacin Hcl (Cipro) 500 mg tablet Discontinued 500 mg PO TWICE A DAY 6 0 December 06, 2021 12:00am March 07, 2022 3:35pm Start: 04-19-2015 End: 05-20-2020 Ciprofloxacin Hcl 500 MG tab let Discontinued 250 mg PO TWICE A DAY 14 0 April 19, 2015 3:44pm May 20, 2020 2:28pm Start: 04-19-2015 End: 05-20-2020 take 250 mg by mouth twice daily Ciprofloxacin Hcl Discontinued 250 MG PO TWICE A DAY 14 April 19, 2015 3:44pm May 20, 2020 2:28pm Start: 04-16-2015 End: 04-19-2015 take 1 tablet by mouth twice daily Ciprofloxacin Hcl 500 MG tablet Discontinued 500 mg PO TWICE A DAY 14 0 April 16, 2015 12:00am April 19, 2015 3:44pm clopidogrel 75 mg oral tablet (13 sources) P2Y12 Platelet Inhibitor Start: 05-22-2014 End: 11-14-2023 take 1 tablet by mouth once daily Clopidogrel 75 MG tablet Discontinued 75 mg PO DAILY May 22, 2014 12:00am November 14, 2023 1:59pm [place] 9-Gjt-Dcm-Fish Oil (10 sources) Start: 02-09-2022 End: 12-11-2023 [place] 6-Arw-Yza-Fish Oil (Fish Oil) 300-1,000 mg capsule Discontinued 1 NMA PO DAILY February 09, 2022 12:00am December 11, 2023 11:47am Start: 02-09-2022 End: 12-11-2023 [place] 7-Zso-Djf-Fish Oil (Fi sh Oil) 300-1,000 mg capsule Discontinued 1 NMA PO DAILY February 08, 2022 11:00pm December 11, 2023 10:47am Start: 02-09-2022 take 300-1000 mg by mouth once daily [place] 4-Uht-Lqi-Fish Oil (Fish Oil) 300-1,000 mg capsule Active 1 CAP PO DAILY February 08, 2022 11:00pm Start: 02-09-2022 take 300-1000 mg by mouth once daily [place] 4-Eds-Csu-Fish Oil (Fish Oil) 300-1,000 mg capsule Active 1 CAP PO DAILY February 09, 2022 12:00am lisinopril 5 mg oral tablet (19 sources) Angiotensin Converting Enzyme Inhibitor Start: 12-11-2023 End: 12-27-2023 take 2.5 mg by mouth once daily Lisinopril 5 mg tablet Discontinued 2.5 mg PO DAILY December 11, 2023 12:00am December 27, 2023 1:26pm Start: 05-04-2014 End: 05-20-2020 take 5 mg by mouth once daily Lisinopril 10 MG tablet Discontinued 5 mg PO DAILY May 04, 2014 12:00am May 20, 2020 2:30pm Hypertension Start: 05-04-2014 End: 05-20-2020 take 5 mg by mouth once daily Lisinopril Discontinued 5 MG PO DAILY May 04, 2014 12:00am May 20, 2020 2:30pm Multivit With Min-Folic Acid (Adult Multivitamin Gummies) 120 mcg tablet,chewable (9 sources) Start: 09-03-2023 End: 12-11-2023 take 1 [...] TABLET PO DAILY September 03, 2023 12:00am [place] 0-Vxb-Wxl-Fish Oil (Fi sh Oil) 1,200 (144-216) mg capsule (6 sources) Start: 05-13-2024 End: 03-05-2025 [place] 2-Hor-Kbp-Fish Oil (Fi sh Oil) 1,200 (144-216) mg capsule Discontinued 1 NMA PO TWICE A DAY May 13, 2024 12:00am March 05, 2025 8:12am Start: 05-13-2024 [place] 3-Dha-Ep a-Fish Oil (Fish Oil) 1,200 (144-216) mg capsule Active 1 NMA PO TWICE A DAY May 13, 2024 12:00am Start: 05-13-2024 [place] 3-Dha-Ep a-Fish Oil (Fish Oil) 1,200 (144-216) mg capsule Active 1 NMA PO TWICE A DAY May 12, 2024 11:00pm ondansetron 4 mg disintegrating oral tablet (20 sources) Serotonin-3 Receptor Antagonist Start: 04-16-2015 End: 05-20-2020 take 1 tablet by mouth every eight hours as needed for nausea Ondansetron 4 MG tablet Discontinued 4 mg PO EVERY 8 HOURS NEEDED as needed for Nausea 20 0 April 19, 2015 3:44pm May 20, 2020 2:28pm prevagen (6 sources) Start: 12-11-2023 End: 05-13-2024 take 10 mg by mouth once daily prevagen Discontinued 10 mg PO DAILY December 11, 2023 12:00am May 13, 2024 8:02am Start: 12-11-2023 End: 05-13-2024 take 10 mg by mouth once daily prevagen Discontinued 1 0 mg PO DAILY December 10, 2023 11:00pm May 13, 2024 7:02am rivaroxaban 20 mg oral tablet (19 sources) Factor Xa Inhibitor Start: 09-03-2023 End: [...] mg capsule Discontinued 0.4 mg PO DAILY 14 14 0 December 01, 2021 12:00am September 03, 2023 12:38pm Start: 04-16-2015 End: 05-20-2020 take 1 capsule by mouth once daily Tamsulosin 0.4 MG capsule Discontinued 0.4 mg PO DAILY April 19, 2015 4:21pm May 20, 2020 2:29pm Urinary ubidecarenone 10 mg oral capsule (10 sources) Start: 02-09-2022 End: 09-03-2023 Coenzyme Q10 10 mg capsule Discontinued 10 mg PO ONCE February 09, 2022 12:00am September 03, 2023 12:37pm 100 ml zoledronic acid 0.05 mg/ml injection (7 sources) Bisphosphonate Start: 11-05-2023 End: 08-14-2024 Zoledronic Nzpq-Nwfzbbmh-Zlzkk 5 mg/100 mL piggyback Discontinued 1 NMA .Route ONCE 100 0 November 05, 2023 12:00am August 14, 2024 2:37pm infuse over 20 minutes Problems Active Problems Problem Classification Problem Date Documented Date Episodic/Chronic Calculus of urinary tract (20 sources) Renal colic; Translations: [Unspecified renal colic] 12-09-2021 Episodic Complications of surgical procedures or medical care (10 sources) Hypoparathyroidism following procedure; Translations: [Postprocedural hypoparathyroidism] Onset: 5 08-22-2024 Chronic Coronary atherosclerosis and other heart disease (13 sources) Coronary arteriosclerosis; Translations: [Coronary atherosclerosis] 05-20-2020 Chronic Comment on above: Patient history of k jorgen coronary disease status post remote stenting of the mid and distal right coronary arteries [place] [address] Crabtree. Secondary risk factors have been treated and are adequately controlled. Blood pressure is slightly elevated in the office today but in his home environment it runs 137-140/70. Disorders of lipid metabolism (15 sources) Hyperlipidemia; Translations: [Hyperlipidemia, unspecified] Onset: 5 05-20-2020 Chronic Comment on above: Lipids are at goal o n his current medical therapy. E Codes: Natural/environment (13 sources) Dog bite - wound; Translations: [Bitten by dog, initial encounter] 05-20-2020 Episodic Essential hypertension (8 sources) Hypertensive disorder; Translations: [Essential (primary) hypertension] Onset: 5 12-27-2023 Chronic Comment on above: Patient blood pressu re in the office today is 152/80. The patient reports this is unusually high for him in his home environment he runs 135-140/70-80. Nonspecific chest pain (2 sources) Chest pain, unspecified; Translations: [Chest pain, unspecified] Onset: 5 Episodic Osteoporosis (8 sources) Osteoporosis; Translations: [Age-related osteoporosis without current pathological fracture] 11-11-2024 Chronic Comment on above: secondary to hyperpa rathyroidism (now resolved) Other endocrine disorders (13 sources) Hyperparathyroidism; Translations: [Hyperparathyroidism, unspecified] 05-20-2020 Chronic Other endocrine disorders (12 sources) Primary hyperparathyroidism; Translations: [Primary hyperparathyroidism] 09-13-2023 [...] Other hereditary and degenerative nervous system conditions (13 sources) Restless legs; Translations: [Restless legs syndrome] 05-20-2020 Chronic Other lower respiratory disease (2 sources) Dyspnea on exertion; Translations: [Other forms of dyspnea] 03-05-2025 Episodic Other lower respiratory disease (1 source) Other forms of dyspnea; Translations: [Other forms of dyspnea] Onset: 5 Episodic Phlebitis; thrombophlebitis and thromboembolism (20 sources) Deep venous thrombosis; Translations: [Acute embolism and thrombosis of unspecified deep veins of unspecified lower extremity] Episodic Residual codes; unclassified (13 sources) Sleep apnea; Translations: [Sleep apnea, unspecified] 05-20-2020 Chronic Residual codes; unclassified (13 sources) History of hernia repair; Translations: [Other specified postprocedural states] 05-20-2020 Episodic Residual codes; unclassified (13 sources) History of surgical procedure on vein; Translations: [Other specified postprocedural states] 05-20-2020 Episodic Residual codes; unclassified (13 sources) History of parathyroidectomy; Translations: [Other specified [...] de-escalation of supplementation with tighter interval rechecking. Unclassified (1 source) Nasal Injury / [id number]() Onset: 8 Viral infection (13 sources) Condyloma acuminatum of the anogenital region; Translations: [Anogenital (venereal) warts] 05-20-2020 Episodic Past or Other Problems Problem Classification Problem Date Documented Date Episodic/Chronic Malaise and fatigue (1 source) Other fatigue; Translations: [Other fatigue] Onset: 10-11-2024 Episodic Other liver diseases (1 source) Abnormal levels of other serum enzymes; Translations: [Abnormal levels of other serum enzymes] Onset: 11-13-2024 Episodic Residual codes; unclassified (1 source) Other specified postprocedural states; Translations: [Other specified postprocedural states] Onset: 10-07-2024 Episodic Residual codes; unclassified (1 source) Chills (without fever); Translations: [Chills (without fever)] Onset: 07-09-2024 Episodic Unclassified (1 source) Nasal Injury; Translations: [Nasal Injury] Onset: 01-29-2018 Unclassified (13 sources) s/p shrapnel removal 02-25-2022 Results Test Name Value Interpretation Reference Range Facility Cardiology Visit Reporton Cardiology Visit Report [facility] [address] [place] [address] OFFICE VISIT Date of Service: 03/05/25 MR#: [id number] Acct: [id number] Name: YAHAIRA MORFIN Rep #: [id number] : 1945 Provider: LELAND shay Age/Sex: 79/M Location: [facility] Status: Signed HPI HPI History of Present Illness Details: Patient is a 79-year-old white male comes in for a routine cardiovascular outpatient appointment. He has historically been cared for in the [place] system. He had remote stenting of his mid and distal right coronary artery in 2002 and has had no recurrence of any anginal symptoms since then. He did have inferior wall hypokinesis at the time of the initial event. The patient has a history of obstructive sleep apnea he is on therapy. He has a history of hyperlipidemia. He denies chest, arm, jaw, or neck discomfort. He denies palpitations. He denies bilateral lower extreme edema. He acknowledges shortness of breath with activity. He denies shortness of breath at rest, cough, orthopnea, PND. He denies lightheadedness, dizziness, near-syncope, syncope, weakness, or fatigue. He states that he feels jittery. 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: No Accompanied by: Is patient in pain?: No Allergies No Known Allergies Allergy (Verified 03/05/25 08:11) Medications ???Medication ???Instructions ???Recorded ???Confirmed ???Type metoprolol tartrate 25 mg tablet 25 mg PO BID ##0 04/19/15 03/05/25 Rx aspirin 81 mg tablet,delayed 81 mg PO DAILY 09/03/23 03/05/25 H istory release rosuvastatin 40 mg tablet 40 mg PO DAILY 09/03/23 03/05/25 H istory ascorbic acid (vitamin C) 500 mg 500 mg PO DAILY 12/11/23 03/05/25 History capsule amlodipine 5 mg tablet 5 mg PO DAILY 12/27/23 03/05/25 Hi story cholecalciferol (vitamin D3) 25 50 mcg PO DAILY 05/13/24 03/05/25 History mcg (1,000 unit) tablet multivitamin (Daily Multi-Vitamin 1 tab PO DAILY 08/14/24 03/05/25 History tablet) omega-3 fatty acids 1,000 mg 1,000 mg PO BID 03/05/25 03/05/25 History capsule pantoprazole 40 mg tablet,delayed 40 mg PO QDAY 03/05/25 03/05/25 H istory release Have you fallen in the past year?: No PFSH Medical History Osteoporosis Wears hearing aid Wears dentures Wears glasses High cholesterol Non-smoker CPAP (continuous positive airway pressure) dependence Sleep apnea Cardiology follow-up encounter COVID-19 ( 09/2022) MARLYS on CPAP Vitamin D deficiency Atherosclerosis of coronary artery of [place] heart without angina pectoris Primary hyperparathyroidism History of deep vein thrombosis of lower extremity Kidney stones Condyloma acuminata Hyperlipidemia Hyperparathyroidism RLS (restless legs syndrome) Sleep apnea Dog bite DVT (deep venous thrombosis) Surgical History Status post parathyroidectomy History of colonoscopy (06/02/20) History of coronary artery stent placement (04/22/03) s/p shrapnel removal S/P hernia repair Status post hemorrhoidectomy Family History Mother Breast cancer Alzheimer disease Sister Breast cancer Myocardial infarction Father Myocardial infarction Alcohol abuse Social History Smoking Status: Never smoker alcohol intake: never substance use type: does not use caffeine: Yes Type: coffee Number of servings: 2 ROS Const Const: Positive for other (Feels jittery); Negative for fatigue or weakness Eyes Eyes: Negative for change in vision ENT ENT: Negative for dizziness or balance problems Cardio Chest Pain: No Palpitations: No Edema: None Muscle aches with walking: None Resp Respiratory: Positive for SOB with activity; Negative for SOB at rest or SOB orthopnea SOB lying down GI GI: Negative nausea or heartburn : Negative for hematuria or frequent nighttime urination/ nocturia Musc Musc: Positive for muscle aches/ myalgia (Occasionally, relates to parathyroid issues); Negative for balance problems Skin Skin: Negative non-healing lesions or rash Neuro Neuro: Negative for dizziness, lightheadedness, near syncope, syncope or weakness Endo Endo: Negative for fatigue Allergy Allergy/Immunology: Negative for rash Card (more content not included)... Normal [facility] Electrocardiogram reportOrde red By: Kamaljit Hendricks on 02-19-2025 EKG study [facility] [address] [place] [address] 12 Lead EKG 02/18/25 0702 MR#: [id number] Acct: [id number] Name: YAHAIRA MORFIN Rep #:[id number] : 1945 79 From: Kamaljit bird MD Attending Dr: Dr. Elmer Gillette MD Status: REG CLI Ordering Dr: Elmer Gillette MD Date: Location: [facility] Sex: M C Admitted: Test Reason : CHEST PAIN Blood Pressure : */* mmHG Vent. Rate : 68 BPM Atrial Rate : 68 BPM P-R Int : 186 ms QRS Dur : 102 ms QT Int : 410 ms P-R-T Axes : 16 -1 -21 degrees QTcB Int : 435 ms Normal sinus rhythm Nonspecific T wave abnormality Abnormal ECG When compared with ECG of 15-Aug-2024 07:51, Criteria for Inferior infarct are no longer Present Confirmed by Kamaljit Hendricks ([id number]), general expeditor AICHA MARIE ([id number]) on 02/19/2025 8:32:50 AM Referred By: Elmer Gillette Confirmed By: Kamaljit Hendricks 02/19/25 0832 Date _ Kamaljit Hendricks MD CC: Dr. Elmer Gillette MD ~ Signed [facility] Work Phone: 12 Lead EKGon 02-18-2025 12 Lead EKG [facility] Cardiovascular Services [address] [place] [address] 12 Lead EKG 02/18/25 0702 MR#: [id number] Acct: [id number] Name: YAHAIRA MORFIN Rep #: [id number] : 1945 79 From: Kamaljit Hendricks MD Attending Dr: Dr. Elmer Gillette MD Status: REG CLI Ordering Dr: Elmer Gillette MD Date: 02/18/25 Location: [facility] Sex: M C Admitted: Test Reason : CHEST PAIN Blood Pressure : */* mmHG Vent. Rate : 68 BPM Atrial Rate : 68 BPM P-R Int : 186 ms QRS Dur : 102 ms QT Int : 410 ms P-R-T Axes : 16 -1 -21 degrees QTcB Int : 435 ms Normal sinus rhythm Nonspecific T wave abnormality Abnormal ECG When compared with ECG of 15-Aug-2024 07:51, Criteria for Inferior infarct are no longer Present Confirmed by Kamaljit Hendricks ([id number]), general expeditor AICHA MARIE ([id number]) on 02/19/2025 8:32:50 AM Referred By: Elmer Gillette Confirmed By: Kamaljit Hendricks 02/19/25 0832 Date Kamaljit Henrdicks MD CC: Dr. Elmer Gillette MD Signed Normal [facility] Myoglobin, Serumon 5 Myoglobin, Ser 34 ng/mL Normal 28-72 [facility] Comment on above: Result Comment: Perf ormed at: - [facility] [address] [id number] [employer]drop[employer]ics Worker: Philipp Vanegas PhD, Phone: [phone] Performed By: #### L 509.1000 #### [facility] [address] [place] [address] [place], [address] Urine Cultureon 02-18-2025 URC Below infection leve l. Mixed Gram Positive Organisms [place] Count 1000-10,000 MIXC Mixed contaminants. Submit a new specimen if indicated. Normal [facility] Comment on above: Performed By: #### L 509.1000 #### [facility] [address] [place], [place], [id number] Absolute lymphocyte countOrd ered By: Elmer Gillette on 02-16-2025 Lymphocytes Auto (Unsp spec) [#/Vol] 1.12 10*3/uL 0.83-4.51 [facility] Absolute neutrophil countOrd ered By: Elmer Gillette on 02-16-2025 Neutrophils (Bld) [#/Vol] 4.8 10*3/uL 2.0-7.7 [facility] Anion gap in Serum or Plasma Ordered By: Elmer Gillette on 02-16-2025 Anion gap [Moles/Vol] 14 mmol/L 5- [facility] Automated lymphocyte count a s percentage of total leukocytesOrdered By: Elmer Gillette on 02-16-2025 Lymphocytes/100 WBC Auto (Unsp spec) 16.1 % Low 19- [facility] BUN/creatinine ratioOrdered By: Elmer Gillette on 02-16-2025 Urea nitrogen/Creatinine [Mass ratio] 13.0 mg/mg 10- [facility] Basophil percentageOrdered B y: Elmer Gillette on 02-16-2025 Basophils/100 WBC (Bld) 0.7 % 0- [facility] Bilirubin Test strip Ql (U)O rdered By: Elmer Gillette on 02-16-2025 Bilirubin Ql (U) Negative Negative [facility] Bilirubin, totalOrdered By: Elmer Gillette on 02-16-2025 Bilirubin [Mass/Vol] 0.45 mg/dL 0.00-1.30 [facility] CBC W/Diff, Automatedon 02-03 Absolute Lymph 1.12 X10 3/uL Normal 0.83-4.51 [facility] Comment on above: Performed By: #### L 500.4050, L503.7505, L300.8000, L501.9520, M100.2200, L501.4021, L3600.5100, L400.0001, L501.3620, L100.0100 ####[facility] [address] [place], [address] Absolute Neut 4.8 X10 3/uL Normal 2.0-7.7 [facility] Comment on above: Performed By: #### L 500.4050, L503.7505, L300.8000, L501.9520, M100.2200, L501.4021, L3600.5100, L400.0001, L501.3620, L100.0100 ####[facility] [address] [place], [place], [phone]) Basophils/100 WBC (Bld) 0.7 % Normal 0-1 [facility] Comment on above: Performed By: #### L 500.4050, L503.7505, L300.8000, L501.9520, M100.2200, L501.4021, L3600.5100, L400.0001, L501.3620, L100.0100 ####[facility] [address] [place], [place], [phone](220) Eosinophils/100 WBC (Bld) 1.2 % Normal 0-5 [facility] Comment on above: Performed By: #### L 500.4050, L503.7505, L300.8000, L501.9520, M100.2200, L501.4021, L3600.5100, L400.0001, L501.3620, L100.0100 ####[facility] [address] [place], [place], [phone](556) Erythrocyte distribution width (RBC) [Ratio] 12.5 % Normal 11.6-14.6 [facility] Comment on above: Performed By: #### L 500.4050, L503.7505, L300.8000, L501.9520, M100.2200, L501.4021, L3600.5100, L400.0001, L501.3620, L100.0100 ####[facility] [address] [place], [phone] Hematocrit (Bld) [Volume fraction] 49.9 % Normal 40-54 [facility] Comment on above: Performed By: #### L 500.4050, L503.7505, L300.8000, L501.9520, M100.2200, L501.4021, L3600.5100, L400.0001, L501.3620, L100.0100 ####[facility] [address] [place], [address] Hemoglobin (Bld) [Mass/Vol] 16.8 g/dL High 13.0-16.5 [facility] Comment on above: Performed By: #### L 500.4050, L503.7505, L300.8000, L501.9520, M100.2200, L501.4021, L3600.5100, L400.0001, L501.3620, L100.0100 ####[facility] [address] [place], [address] IG% 0.400 Normal 0.0-0.9 [facility] Comment on above: Result Comment: IG% - Immature Granulocytes (promyelocytes, myelocytes and metamyelocytes) > 1% indicates that a LEFT SHIFT is Present. Performed By: #### L 500.4050, L503.7505, L300.8000, L501.9520, M100.2200, L501.4021, L3600.5100, L400.0001, L501.3620, L100.0100 ####[facility] [address] [place], [address] Lymphocytes/100 WBC (Bld) 16.1 % Low 19-41 [facility] Comment on above: Performed By: #### L 500.4050, L503.7505, L300.8000, L501.9520, M100.2200, L501.4021, L3600.5100, L400.0001, L501.3620, L100.0100 ####[facility] [address] [place], [address] MCH (RBC) [Entitic mass] 31.6 pg Normal 27.0-32.0 [facility] Comment on above: Performed By: #### L 500.4050, L503.7505, L300.8000, L501.9520, M100.2200, L501.4021, L3600.5100, L400.0001, L501.3620, L100.0100 ####[facility] [address] [place], [address] MCHC (RBC) [Mass/Vol] 33.7 g/dL Normal 32-36 [facility] Comment on above: Performed By: #### L 500.4050, L503.7505, L300.8000, L501.9520, M100.2200, L501.4021, L3600.5100, L400.0001, L501.3620, L100.0100 ####[facility] [address] [place], [address] MCV (RBC) [Entitic vol] 93.8 fL Normal 80-94 [facility] Comment on above: Performed By: #### L 500.4050, L503.7505, L300.8000, L501.9520, M100.2200, L501.4021, L3600.5100, L400.0001, L501.3620, L100.0100 ####[facility] [address] [place], [address] Monocytes/100 WBC (Bld) 12.0 % High 0-10 [facility] Comment on above: Performed By: #### L 500.4050, L503.7505, L300.8000, L501.9520, M100.2200, L501.4021, L3600.5100, L400.0001, L501.3620, L100.0100 ####[facility] [address] [place], [address] Neutrophils/100 WBC (Bld) 69.6 % Normal 47-70 [facility] Comment on above: Performed By: #### L 500.4050, L503.7505, L300.8000, L501.9520, M100.2200, L501.4021, L3600.5100, L400.0001, L501.3620, L100.0100 ####[facility] [address] [place], [address] Nucleated RBC (Bld) [#/Vol] 0 10*3/uL Normal 0-5 [facility] Comment on above: Performed By: #### L 500.4050, L503.7505, L300.8000, L501.9520, M100.2200, L501.4021, L3600.5100, L400.0001, L501.3620, L100.0100 ####[facility] [address] [place], [address] Platelet mean volume (Bld) [Entitic vol] 9.8 fL Normal 6.2-12.0 [facility] Comment on above: Performed By: #### L 500.4050, L503.7505, L300.8000, L501.9520, M100.2200, L501.4021, L3600.5100, L400.0001, L501.3620, L100.0100 ####[facility] [address] [place], [address] Platelets (Bld) [#/Vol] 199 10*3/uL Normal 150-450 [facility] Comment on above: Performed By: #### L 500.4050, L503.7505, L300.8000, L501.9520, M100.2200, L501.4021, L3600.5100, L400.0001, L501.3620, L100.0100 ####[facility] [address] [place], [address] RBC (Bld) [#/Vol] 5.32 10*6/uL Normal 4.6-6.[address] [facility] Comment on above: Performed By: #### L 500.4050, L503.7505, L300.8000, L501.9520, M100.2200, L501.4021, L3600.5100, L400.0001, L501.3620, L100.0100 ####[facility] [address] [place], [address] RDW SD 42.6 fl Normal 35.1-43.9 [facility] Comment on above: Performed By: #### L 500.4050, L503.7505, L300.8000, L501.9520, M100.2200, L501.4021, L3600.5100, L400.0001, L501.3620, L100.0100 ####[facility] [address] [place], [place], [phone](540) WBC (Bld) [#/Vol] 6.9 10*3/uL Normal 4.4-11.0 [facility] Comment on above: Performed By: #### L 500.4050, L503.7505, L300.8000, L501.9520, M100.2200, L501.4021, L3600.5100, L400.0001, L501.3620, L100.0100 ####[facility] [address] [place], [place], [phone](116) CPK Total, Creatine Kinaseon 02-16-2025 CPK TOTAL 97 U/L Normal 24-195 [facility] Comment on above: Performed By: #### L 500.4050, L503.7505, L300.8000, L501.9520, M100.2200, L501.4021, L3600.5100, L400.0001, L501.3620, L100.0100 ####[facility] [address] [place], [place], [phone](085) Carbon dioxide, total [Moles /volume] in Central venous bloodOrdered By: Elmer Gillette on 02-16-2025 CO2 [Moles/Vol] 22.1 mmol/L 21.0-32.0 [facility] Chest PA and Lateralon 02-16 Chest PA and Lateral [facility] Imaging Services [address] [place], [place] [address] Chest PA and Lateral MR#: [id number] Acct: [id number] Name: YAHAIRA MORFIN Rep #: [id number] : 1945 M 79 From: Christel Metcalf MD PCP: Dr. Elmer Gillette MD Status: REG CLI Study: Chest PA and Lateral Date of Exam: 02/16/25 Exam# [id number] Ordering Dr: Elmer Gillette MD PROCEDURE: CHEST PA AND LATERAL 02/16/2025 REASON FOR EXAM: CHEST PAIN TECHNIQUE: CHEST PA AND LATERAL COMPARISON: No FINDINGS: Normal heart size. Well inflated lungs. No consolidation, effusion, or pneumothorax. RAD/Chest PA and Lateral IMPRESSION: No acute findings Reading Location: [facility] CC: Dr. Elmer Gillette MD Balloon Tester: Signed Normal [facility] Chloride assayOrdered By: Higinio Gillette on 02-16-2025 Chloride [Moles/Vol] 106 mmol/L 98-108 [facility] Comprehensive Metabolic Prof ilon 02-16-2025 Albumin [Mass/Vol] 4.5 g/dL Normal 3.4-4.8 [facility] Comment on above: Performed By: #### L 500.4050, L503.7505, L300.8000, L501.9520, M100.2200, L501.4021, L3600.5100, L400.0001, L501.3620, L100.0100 ####[facility] [address] [place], [address] Albumin/Globulin [Mass ratio] 1.6 {ratio} Normal 0.9-2.4 [facility] Comment on above: Performed By: #### L 500.4050, L503.7505, L300.8000, L501.9520, M100.2200, L501.4021, L3600.5100, L400.0001, L501.3620, L100.0100 ####[facility] [address] [place], [address] ALK PHOS 62 U/L Normal 40-129 [facility] Comment on above: Performed By: #### L 500.4050, L503.7505, L300.8000, L501.9520, M100.2200, L501.4021, L3600.5100, L400.0001, L501.3620, L100.0100 ####[facility] [address] [place], [address] ALT [Catalytic activity/Vol] 32 U/L Normal <=46 [facility] Comment on above: Performed By: #### L 500.4050, L503.7505, L300.8000, L501.9520, M100.2200, L501.4021, L3600.5100, L400.0001, L501.3620, L100.0100 ####[facility] [address] [place], [address] AST [Catalytic activity/Vol] 25 U/L Normal <=37 [facility] Comment on above: Performed By: #### L 500.4050, L503.7505, L300.8000, L501.9520, M100.2200, L501.4021, L3600.5100, L400.0001, L501.3620, L100.0100 ####[facility] [address] [place], [address] Bilirubin [Mass/Vol] 0.45 mg/dL Normal 0.00-1.30 [facility] Comment on above: Performed By: #### L 500.4050, L503.7505, L300.8000, L501.9520, M100.2200, L501.4021, L3600.5100, L400.0001, L501.3620, L100.0100 ####[facility] [address] [place], [address] BUN/CRE 13.0 RATIO Normal 10-20 [facility] Comment on above: Performed By: #### L 500.4050, L503.7505, L300.8000, L501.9520, M100.2200, L501.4021, L3600.5100, L400.0001, L501.3620, L100.0100 ####[facility] [address] [place], [address] Calcium [Mass/Vol] 10.1 mg/dL Normal 7.6-11.0 [facility] Comment on above: Performed By: #### L 500.4050, L503.7505, L300.8000, L501.9520, M100.2200, L501.4021, L3600.5100, L400.0001, L501.3620, L100.0100 ####[facility] [address] [place], [address] Chloride [Moles/Vol] 106 mmol/L Normal 98-108 [facility] Comment on above: Performed By: #### L 500.4050, L503.7505, L300.8000, L501.9520, M100.2200, L501.4021, L3600.5100, L400.0001, L501.3620, L100.0100 ####[facility] [address] [place], [address] CO2 [Moles/Vol] 22.1 mmol/L Normal 21.0-32.0 [facility] Comment on above: Performed By: #### L 500.4050, L503.7505, L300.8000, L501.9520, M100.2200, L501.4021, L3600.5100, L400.0001, L501.3620, L100.0100 ####[facility] [address] [place], [address] Creatinine [Mass/Vol] 1.11 mg/dL Normal 0.70-1.20 [facility] Comment on above: Performed By: #### L 500.4050, L503.7505, L300.8000, L501.9520, M100.2200, L501.4021, L3600.5100, L400.0001, L501.3620, L100.0100 ####[facility] [address] [place], [place], [phone](761) GAP 14 Normal 5-15 [facility] Comment on above: Performed By: #### L 500.4050, L503.7505, L300.8000, L501.9520, M100.2200, L501.4021, L3600.5100, L400.0001, L501.3620, L100.0100 ####[facility] [address] [place], [place], [phone] GFR/1.73 sq M.predicted among non-blacks MDRD (S/P/Bld) [Vol rate/Area] 68 mL/min/{1.73_m2} Normal >60 [facility] Comment on above: Result Comment: mL/m in/1.73m2 CKD-EPI Creatinine Equation (2020) Performed By: #### L 500.4050, L503.7505, L300.8000, L501.9520, M100.2200, L501.4021, L3600.5100, L400.0001, L501.3620, L100.0100 ####[facility] [address] [place], [address] Globulin (S) [Mass/Vol] 2.9 g/dL Normal 2.2-4.2 [facility] Comment on above: Performed By: #### L 500.4050, L503.7505, L300.8000, L501.9520, M100.2200, L501.4021, L3600.5100, L400.0001, L501.3620, L100.0100 ####[facility] [address], [address] Glucose [Mass/Vol] 91 mg/dL Normal 70-99 [facility] Comment on above: Performed By: #### L 500.4050, L503.7505, L300.8000, L501.9520, M100.2200, L501.4021, L3600.5100, L400.0001, L501.3620, L100.0100 ####[facility] [address], [address] Potassium [Moles/Vol] 4.5 mmol/L Normal 3.3-5.1 [facility] Comment on above: Performed By: #### L 500.4050, L503.7505, L300.8000, L501.9520, M100.2200, L501.4021, L3600.5100, L400.0001, L501.3620, L100.0100 ####[facility] [address] [place], [address] Sodium [Moles/Vol] 142 mmol/L Normal 133-145 [facility] Comment on above: Performed By: #### L 500.4050, L503.7505, L300.8000, L501.9520, M100.2200, L501.4021, L3600.5100, L400.0001, L501.3620, L100.0100 ####[facility] [address] [place], [address] T PROT 7.4 g/dL Normal 5.9-8.4 [facility] Comment on above: Performed By: #### L 500.4050, L503.7505, L300.8000, L501.9520, M100.2200, L501.4021, L3600.5100, L400.0001, L501.3620, L100.0100 ####[facility] [address] [place], [place], [phone] Urea nitrogen [Mass/Vol] 14 mg/dL Normal 4-19 [facility] Comment on above: Performed By: #### L 500.4050, L503.7505, L300.8000, L501.9520, M100.2200, L501.4021, L3600.5100, L400.0001, L501.3620, L100.0100 ####[facility] [address] [place], [place], [phone] D-Dimer Quantitative (DVT/PE )on 02-16-2025 D-DIMER QUANT 0.27 FEU/ug/m Normal 0.27-0.49 [facility] Comment on above: Result Comment: NORM AL D-Dimer level (<0.50) indicates no DVT or PE. Performed By: #### L 500.4050, L503.7505, L300.8000, L501.9520, M100.2200, L501.4021, L3600.5100, L400.0001, L501.3620, L100.0100 ####[facility] [address] [place], [place], [address] Eosinophil percentageOrdered By: Elmer Gillette on 02-16-2025 Eosinophils/100 WBC (Bld) 1.2 % 0-5 [facility] Erythrocyte distribution wid th ratioOrdered By: Elmer Gillette on 02-16-2025 Erythrocyte distribution width (RBC) [Ratio] 12.5 % 11.6-14.6 [facility] Erythrocyte distribution wid th standard deviationOrdered By: Elmer Melquiades on 02-16-2025 Erythrocyte distribution width (RBC) [Ratio] 42.6 fl 35.1-43.9 [facility] Glomerular filtration rate ( GFR) estimation/1.73 sq m using serum, plasma, or whole bOrdered By: Elmer Gillette on 02-16-2025 GFR/1.73 sq M.predicted among non-blacks MDRD (S/P/Bld) [Vol rate/Area] 68 mL/min/{1.73_m2} >60 [facility] Comment on above: mL/min/1.73m2 CKD-EP I Creatinine Equation (2020) Hematocrit Auto (Bld) [Volum e fraction]Ordered By: Elmer Gillette on 02-16-2025 Hematocrit (Bld) [Volume fraction] 49.9 % 40-54 [facility] Hemoglobin measurementOrdere d By: Elmer Gillette on 02-16-2025 Hemoglobin (Bld) [Mass/Vol] 16.8 g/dL High 13.0-16.5 [facility] Immature granulocytes/100 WB C Auto (Bld)Ordered By: Elmer Melqiuades on 02-16-2025 Immature granulocytes/100 WBC (Bld) 0.400 % 0.0-0.9 [facility] Comment on above: IG% - Immature Granu locytes (promyelocytes, myelocytes and metamyelocytes) > 1% indicates that a LEFT SHIFT is Present. Ketones Test strip Ql (U)Ord ered By: Elmer Gillette on 02-16-2025 Ketones Ql (U) Negative Negative [facility] L501.4021on 02-16-2025 Trop T High Sen 6 ng/L Normal <=22 [facility] Comment on above: Performed By: #### L 500.4050, L503.7505, L300.8000, L501.9520, M100.2200, L501.4021, L3600.5100, L400.0001, L501.3620, L100.0100 ####[facility] [address] [facility] [place], [place], [address] L503.7505on 02-16-2025 Natriuretic peptide B (Bld) [Mass/Vol] 121 pg/mL Normal <=1800 [facility] Comment on above: Result Comment: Hear t Failure Unlikely: < 300 pg/mL Heart Failure Likely < 50 Years: > 450 pg/mL 50-75 Years: > 900 pg/mL >75 Years: > 1800 pg/mL Performed By: #### L 500.4050, L503.7505, L300.8000, L501.9520, M100.2200, L501.4021, L3600.5100, L400.0001, L501.3620, L100.0100 ####[facility] [address], [address] Laboratory - Chemistry and C hemistry - challengeOrdered By: Elmer Gillette on 02-16-2025 AST [Catalytic activity/Vol] 25 U/L <38 [facility] MCV (mean corpuscular volume ) determinationOrdered By: Elmer Melquiades 02-16-2025 MCV (RBC) [Entitic vol] 93.8 fL 80-94 [facility] Mean corpuscular hemoglobin (MCH) determinationOrdered By: Elmer Gillette 02-16-2025 MCH (RBC) [Entitic mass] 31.6 pg 27.0-32.0 [facility] Mean corpuscular hemoglobin concentration (MCHC) determinationOrdered By: Elmer Gillette 02-16-2025 MCHC (RBC) [Mass/Vol] 33.7 g/dL 32-36 [facility] Mean platelet volume determi nationOrdered By: Elmer Gillette 02-16-2025 Platelet mean volume (Bld) [Entitic vol] 9.8 fL 6.2-12.0 [facility] Microscopic analysis of urin e for red blood cells (RBC)Ordered By: Elmer Gillette 02-16-2025 Microscopic analysis of urine for red blood cells (RBC) 0-5 SEEN /hpf 0-5 [facility] Monocyte percentageOrdered B y: Elmer Gillette on 02-16-2025 Monocytes/100 WBC (Bld) 12.0 % High 0-10 [facility] Mucus LM Ql (Urine sed)Order ed By: Elmer Gillette 02-16-2025 Mucus Ql (Urine sed) 0 SEEN /hpf [facility] Natriuretic peptide.B prohor bello N-Terminal [Mass/volume] in Serum or PlasmaOrdered By: Elmer Gillette 02-16-2025 Natriuretic peptide.B prohormone N-Terminal [Mass/Vol] 121 pg/mL <1800 [facility] Comment on above: Heart Failure Unlike ly: < 300 pg/mLHeart Failure Likely< 50 Years: > 450 pg/mL50-75 Years: > 900 pg/mL>75 Years: > 1800 pg/mL Neutrophil percentageOrdered By: Elmer Gillette on 02-16-2025 Neutrophils/100 WBC (Bld) 69.6 % 47-70 [facility] Nitrite Test strip Ql (U)Ord ered By: Elmer Gillette on 02-16-2025 Nitrite Ql (U) Negative Negative [facility] Nucleated red blood cell per centageOrdered By: Elmer Gillette on 02-16-2025 Nucleated RBC/100 WBC (Bld) [Ratio] 0 % 0-5 [facility] Platelet countOrdered By: Higinio Gillette on 02-16-2025 Platelets (Bld) [#/Vol] 199 10*3/uL 150-450 [facility] Potassium measurement (mass/ volume)Ordered By: Elmer Gillette on 02-16-2025 Potassium (Unsp spec) [Mass/Vol] 4.5 mmol/L 3.3-5.1 [facility] Protein Test strip Ql (U)Ord ered By: Elmer Gillette on 02-16-2025 Protein Ql (U) 15 mg/dl High Negative [facility] RBC Auto (Bld) [#/Vol]Ordere d By: Elmer Gillette on 02-16-2025 RBC (Bld) [#/Vol] 5.32 10*6/uL 4.6-6.[address] [facility] Serum creatinine measurement (mass/volume)Ordered By: Elmer Gillette on 02-16-2025 Creatinine [Mass/Vol] 1.11 mg/dL 0.70-1.20 [facility] Serum globulin measurementOr dered By: Elmer Gillette 02-16-2025 Globulin (S) [Mass/Vol] 2.9 g/dL 2.2-4.2 [facility] Serum glucose measurement (m ass/volume)Ordered By: Elmer Gillette on 02-16-2025 Glucose [Mass/Vol] 91 mg/dL 70-99 [facility] Serum myoglobin measurementO rdered By: Elmer Gillette on 02-16-2025 Myoglobin [Mass/Vol] 34 ng/mL 28-[address] [facility] Comment on above: Performed at: [facility] [place], [place] [id number] Director: Philipp Vanegas PhD, Phone: [phone] Serum or plasma alanine doll otransferase (ALT) measurementOrdered By: Elmer Gillette on 02-16-2025 ALT [Catalytic activity/Vol] 32 U/L <47 [facility] Serum or plasma albumin keesha urement (mass/volume)Ordered By: Elmer Gillette on 02-16-2025 Albumin [Mass/Vol] 4.5 g/dL 3.4-4.8 [facility] Serum or plasma albumin/glob ulin mass ratioOrdered By: Elmer Gillette on 02-16-2025 Albumin/Globulin [Mass ratio] 1.6 {ratio} 0.9-2.4 [facility] Serum or plasma alkaline marysol sphatase measurementOrdered By: Elmer Gillette 02-16-2025 ALP [Catalytic activity/Vol] 62 U/L 40-129 [facility] Serum or plasma calcium keesha urement (mass/volume)Ordered By: Elmer Gillette 02-16-2025 Calcium [Mass/Vol] 10.1 mg/dL 7.6-11.0 [facility] Serum or plasma creatine kin ase activityOrdered By: Elmer Gillette 02-16-2025 CK [Catalytic activity/Vol] 97 U/L 24-195 [facility] Serum or plasma urea nitroge n measurement (mass/volume)Ordered By: Elmer Gillette 02-16-2025 Urea nitrogen [Mass/Vol] 14 mg/dL 4-19 [facility] Sodium levelOrdered By: Elmer Gillette 02-16-2025 Sodium [Moles/Vol] 142 mmol/L 133-145 [facility] Squamous epithelial cells de tection in urine sediment by light microscopyOrdered By: Elmer Gillette 02-16-2025 Epithelial cells.squamous LM Ql (Urine sed) 0 SEEN /hpf 0-5 [facility] TSH DL <= 0.005 mIU/L QnOrde red By: Elmer Gillette on 02-16-2025 TSH Qn 3.360 uIU/mL 0.300-4.200 [facility] Thyroid Stim Hormone (TSH)on 02-16-2025 TSH 3.360 uIU/mL Normal 0.300-4.200 [facility] Comment on above: Performed By: #### L 500.4050, L503.7505, L300.8000, L501.9520, M100.2200, L501.4021, L3600.5100, L400.0001, L501.3620, L100.0100 ####[facility] [address] [place], [place], [phone] Total proteinOrdered By: Elmer Gillette on 02-16-2025 Protein [Mass/Vol] 7.4 g/dL 5.9-8.4 [facility] Troponin T.cardiac [Mass/vol ume] in Serum or Plasma by High sensitivity methodOrdered By: Elmer Gillette on 02-16-2025 Troponin T.cardiac High sensitivity method [Mass/Vol] 6 ng/L <22 [facility] Urinalysis, Completeon 02-16 RBC 0-5 SEEN Normal 0-5 [facility] Comment on above: Order Comment: Urine , Random Performed By: #### L 500.4050, L503.7505, L300.8000, L501.9520, M100.2200, L501.4021, L3600.5100, L400.0001, L501.3620, L100.0100 ####[facility] [address] [place], [place], [id number]) WBC 0-5 SEEN Normal 0-5 [facility] Comment on above: Order Comment: Urine , Random Performed By: #### L 500.4050, L503.7505, L300.8000, L501.9520, M100.2200, L501.4021, L3600.5100, L400.0001, L501.3620, L100.0100 ####[facility] [address] [place], [address] BACTERIA 0 SEEN Normal None Seen [facility] Comment on above: Order Comment: Urine , Random Performed By: #### L 500.4050, L503.7505, L300.8000, L501.9520, M100.2200, L501.4021, L3600.5100, L400.0001, L501.3620, L100.0100 ####[facility] [address] [place], [place], [id number] EPI,SQUAMOUS 0 SEEN Normal 0-5 [facility] Comment on above: Order Comment: Urine , Random Performed By: #### L 500.4050, L503.7505, L300.8000, L501.9520, M100.2200, L501.4021, L3600.5100, L400.0001, L501.3620, L100.0100 ####[facility] [address] [place], [place], [id number] Mucus Ql (Urine sed) 0 SEEN Normal [facility] Comment on above: Order Comment: Urine , Random Performed By: #### L 500.4050, L503.7505, L300.8000, L501.9520, M100.2200, L501.4021, L3600.5100, L400.0001, L501.3620, L100.0100 ####[facility] [address] [place], [place], [id number] Urine clarityOrdered By: Elmer Gillette on 02-16-2025 Clarity (U) Clear Clear [facility] Urine color determinationOrd ered By: Elmer Gillette on 02-16-2025 Color (U) Yellow Yellow [facility] Urine cultureOrdered By: Elmer Gillette 02-16-2025 Bacteria identified Cx Nom (U) Positive Abnormal [facility] Urine glucose detectionOrder ed By: Elmer Gillette on 02-16-2025 Glucose Ql (U) Normal mg/dl Normal [facility] Urine leukocyte esterase det ection by dipstickOrdered By: Elmer Gillette 02-16-2025 Leukocyte esterase Test strip Ql (U) Negative Negative [facility] Urine pHOrdered By: Elmer Gillette on 02-16-2025 pH (U) 7.0 [pH] 5.0 - 8.0 [facility] Urine sediment bacteria coun t by microscopy (number/high power field)Ordered By: Elmer Melquiades on 02-16-2025 Bacteria LM.HPF (Urine sed) [#/Area] 0 /[HPF] None Seen [facility] Urine specific gravity measu rementOrdered By: Elmer Melquiades on 02-16-2025 Specific gravity (U) [Rel density] 1.010 1.002-1.030 [facility] Urine urobilinogen measureme ntOrdered By: Elmer Melquiades on 02-16-2025 Urobilinogen Ql (U) Normal mg/dl Normal [facility] White blood cell (WBC) count Ordered By: Elmer Melquiades on 02-16-2025 WBC (Bld) [#/Vol] 6.9 10*3/uL 4.4-11.0 [facility] White blood cell countOrdere d By: Elmer Gillette on 02-16-2025 White blood cell count 0-5 SEEN /hpf 0-5 [facility] Endocrinology Visit Reporton 11-11-2024 Endocrinology Visit Report [facility] [address] [place] [address] OFFICE VISIT Date of Service: 11/11/24 MR#: [id number] Acct: [id number] Name: BETOYAHAIRA Rep #: [id number] : 1945 Provider: Ness Camacho Age/Sex: 78/M Location[place] [facility] Status: Signed Intake Vital Signs 05/13/24 07:55 [...] 11/11/24 History mcg (1,000 unit) tablet omega 9-byt-vlb-fish oil 1,200 mg 1 cap PO BID [...] D deficiency Atherosclerosis of coronary artery of [place] heart without angina pectoris Primary hyperparathyroidism History [...] and patie (more content not included)... Normal [facility] Elastography Parenchyma/Orga non 11-10-2024 Elastography Parenchyma/Organ [facility] [address] [place] [address] Elastography Parenchyma/Organ MR#: [id number] Acct: [id number] Name: YAHAIRA MORFIN Rep #: [id number] : 1945 M 78 From: Zeke Moore MD PCP: Dr. Elmer Gillette MD Status: REG CLI Study: Elastography Parenchyma/Organ Date of Exam: Exam# [id number] Ordering Dr: Elmer Gillette MD PROCEDURE: ELASTOGRAPHY PARENCHYMA/ORGAN (USELPARO), 11/10/2024 REASON FOR EXAM: ELEVATED LIVER ENZYMES COMPARISON: 10/03/2024 TECHNIQUE: [employer] S-shear wave elastography was performed for non-invasive [...] (15kPa): Significant fibrosis / cirrhosis Reading Location: [id number] CC: Dr. Elmer Gillette MD Balloon Tester: Signed Normal [facility] Abdomen Limitedon 10-03-2024 Abdomen Limited [facility] [address] [place] [address] Abdomen Limited MR#: [id number] Acct: [id number] Name: YAHAIRA MORFIN Rep #: [id number] : 1945 M 78 From: Demetri harp MD PCP: Dr. Elmer Gillette MD Status: REG CLI Study: Abdomen Limited Date of Exam: 10/03/24 Exam# [id number] Ordering Dr: Elmer Gillette MD PROCEDURE: ABDOMEN [...] and nonobstructive right intrarenal calculus. Reading Location: [id number] CC: Dr. Elmer Gillette MD Balloon Tester: Signed Normal [facility] Hepatitis Panel Acuteon 09-07 COMMENT Comment Normal . [facility] Comment on above: Order Comment: ADD T O LABS DRAWN 09/29/24 Result Comment: Not infected with HCV unless early or acute infection is suspected (which may be delayed in an immunocompromised individual), or other evidence exists to indicate HCV infection. Performed at: [address] [id number] [employer]droponics Worker: Philipp Vanegas PhD, Phone: [phone] Performed By: #### L 509.1000 #### [facility] [address] [place], [address] HEP B CORE,IgM Negative Normal Negative [facility] Comment on above: Order Comment: ADD T O LABS DRAWN 09/29/24 Performed By: #### L 509.1000 #### [facility] [address] [place], [address] HEP B SURF AG Negative Normal Negative [facility] Comment on above: Order Comment: ADD T O LABS DRAWN 09/29/24 Performed By: #### L 509.1000 #### [facility] [address] [place], [address] HEP C VIRUS AB Non-Reactive Normal Non Reactive [facility] Comment on above: Order Comment: ADD T O LABS DRAWN 09/29/24 Performed By: #### L 509.1000 #### [facility] [address] [facility] [address] HEPATITIS A-IgM Negative Normal Negative [facility] Comment on above: Order Comment: ADD T O LABS DRAWN 09/29/24 Result Comment: A ne gative anti-HAV IgM result suggests no recent or current HAV infection. Performed By: #### L 509.1000 #### [facility] [address] [place], [address] HBV surface Ag IA QlOrdered By: Elmer Gillette on 09-30-2024 Hepatitis B Surface Antigen Negative Negative [facility] Hepatitis A virus IgM antibo dy assayOrdered By: Elmer Gillette on 09-30-2024 Hepatitis A IgM Antibody Negative Negative [facility] Comment on above: A negative anti-HAV IgM result suggests no recent orcurrent HAV infection. Hepatitis B virus core IgM a ntibody assayOrdered By: Elmer Gillette on 09-30-2024 Hepatitis B Core IgM Antibody Negative Negative [facility] Hepatitis C virus antibody a ssayOrdered By: Elmer Gillette on 09-30-2024 Hepatitis C Antibody (EIA) Non-Reactive Non Reactive [facility] No Panel InformationOrdered By: Elmer Gillette on 09-30-2024 Hepatitis C Antibody Comment Comment . [facility] Comment on above: Not infected with HC V unless early or acute infection issuspected (which may be delayed in an immunocompromisedindividual), or other evidence exists to indicate HCVinfection.Performed at: - [facility] [id number] Director: Philipp Vanegas PhD, Phone: [phone] [id number] DOrdered By: Jenifer Padilla on 09-29-2024 Vitamin D 25-Hydroxy 37.8 ng/mL [facility] Comment on above: Vitamin D 25(OH) Sta tus Range Deficiency <20 ng/mL (50nmol/L) Insufficiency 20 - 30 ng/mL (50 - 75 nmol/L) Sufficiency 30 - 100 ng/mL (75 - 250 nmol/L) Toxicity >100 ng/mL (>250 nmol/L) Absolute neutrophil countOrd ered By: Elmer Gillette on 09-29-2024 Neutrophils (Bld) [#/Vol] 4.7 10*3/uL 2.0-7.7 [facility] Albumin to globulin ratioOrd ered By: Elmer Gillette on 09-29-2024 Albumin/Globulin [Mass ratio] 1.0 {ratio} 0.9-2.4 [facility] Basic Metabolic Profile (BMP )on 09-29-2024 BUN Normal 7-18 [facility] Comment on above: Result Comment: CMP ORDERED Performed By: #### L 500.2500, L506.1000 #### [facility] [address] [place], [address] BUN/CRE Normal 10-20 [facility] Comment on above: Result Comment: CMP ORDERED Performed By: #### L 500.2500, L506.1000 #### [facility] [address] [place], [address] CA,Total Normal 8.5-10.1 [facility] Comment on above: Result Comment: CMP ORDERED Performed By: #### L 500.2500, L506.1000 #### [facility] [address] [place], [address] CL Normal 98-107 [facility] Comment on above: Result Comment: CMP ORDERED Performed By: #### L 500.2500, L506.1000 #### [facility] [address] [place], [address] CO2 Normal 21.0-32.0 [facility] Comment on above: Result Comment: CMP ORDERED Performed By: #### L 500.2500, L506.1000 #### [facility] [address] [place], [address] CREAT,SERUM Normal 0.70-1.30 [facility] Comment on above: Result Comment: CMP ORDERED Performed By: #### L 500.2500, L506.1000 #### [facility] [address] [place], [address] EST GFR Normal >60 [facility] Comment on above: Result Comment: CMP ORDERED Performed By: #### L 500.2500, L506.1000 #### [facility] [address] [place], [address] EST GFR - AA Normal >60 [facility] Comment on above: Result Comment: CMP ORDERED Performed By: #### L 500.2500, L506.1000 #### [facility] [address] [place], [address] GAP Normal 5-15 [facility] Comment on above: Result Comment: CMP ORDERED Performed By: #### L 500.2500, L506.1000 #### [facility] [address] [place], [address] GLU Normal 74-106 [facility] Comment on above: Result Comment: CMP ORDERED Performed By: #### L 500.2500, L506.1000 #### [facility] [address] [place], [address] Potassium Normal 3.5-5.1 [facility] Comment on above: Result Comment: CMP ORDERED Performed By: #### L 500.2500, L506.1000 #### [facility] [address] [place], [address] Basic Metabolic Profile (BMP) Normal 136-145 [facility] Comment on above: Result Comment: CMP ORDERED Performed By: #### L 500.2500, L506.1000 #### [facility] [address] [place], [address] Basophil percentageOrdered B y: Elmer Gillette on 09-29-2024 Basophils/100 WBC (Bld) 1.1 % High 0-1 [facility] Bilirubin, totalOrdered By: Elmer Gillette on 09-29-2024 Bilirubin [Mass/Vol] 0.50 mg/dL 0.20-1.00 [facility] Comment on above: For patients on eltr ombopag therapy, use of Dimension [place] TBIL is not recommended. Blood urea nitrogen (BUN)/cr eatinine ratioOrdered By: Elmer Gillette on 09-29-2024 Urea nitrogen/Creatinine [Mass ratio] 15.8 mg/mg 10-20 [facility] CBC W/Diff, Automatedon 09-07 Absolute Lymph 1.69 X10 3/uL Normal 0.83-4.51 [facility] Comment on above: Performed By: #### L 509.1000 #### [facility] [address] [place], [address] Absolute Neut 4.7 X10 3/uL Normal 2.0-7.7 [facility] Comment on above: Performed By: #### L 509.1000 #### [facility] [address] [place], [address] Basophils/100 WBC (Bld) 1.1 % High 0-1 [facility] Comment on above: Performed By: #### L 509.1000 #### [facility] [address] [place], [address] Eosinophils/100 WBC (Bld) 2.6 % Normal 0-5 [facility] Comment on above: Performed By: #### L 509.1000 #### [facility] [address] [place], [address] Erythrocyte distribution width (RBC) [Ratio] 12.6 % Normal 11.6-14.6 [facility] Comment on above: Performed By: #### L 509.1000 #### [facility] [address] [place], [address] Hematocrit (Bld) [Volume fraction] 45.4 % Normal 40-54 [facility] Comment on above: Performed By: #### L 509.1000 #### [facility] [address] [place], [address] Hemoglobin (Bld) [Mass/Vol] 15.2 g/dL Normal 13.0-16.5 [facility] Comment on above: Performed By: #### L 509.1000 #### [facility] [address] [place], [address] IG% 0.900 Normal 0.0-0.9 [facility] Comment on above: Result Comment: IG% - Immature Granulocytes (promyelocytes, myelocytes and metamyelocytes) > 1% indicates that a LEFT SHIFT is Present. Performed By: #### L 509.1000 #### [facility] [address] [place], [address] Lymphocytes/100 WBC (Bld) 22.3 % Normal 19-41 [facility] Comment on above: Performed By: #### L 509.1000 #### [facility] [address] [place], [address] MCH (RBC) [Entitic mass] 32.0 pg Normal 27.0-32.0 [facility] Comment on above: Performed By: #### L 509.1000 #### [facility] [address] [place], [address] MCHC (RBC) [Mass/Vol] 33.5 g/dL Normal 32-36 [facility] Comment on above: Performed By: #### L 509.1000 #### [facility] [address] [place], [address] MCV (RBC) [Entitic vol] 95.6 fL High 80-94 [facility] Comment on above: Performed By: #### L 509.1000 #### [facility] [address] [place], [address] Monocytes/100 WBC (Bld) 11.3 % High 0-10 [facility] Comment on above: Performed By: #### L 509.1000 #### [facility] [address] [place], [address] Neutrophils/100 WBC (Bld) 61.8 % Normal 47-70 [facility] Comment on above: Performed By: #### L 509.1000 #### [facility] [address] [place], [address] Nucleated RBC (Bld) [#/Vol] 0 10*3/uL Normal 0-5 [facility] Comment on above: Performed By: #### L 509.1000 #### [facility] [address] [place], [address] Platelet mean volume (Bld) [Entitic vol] 9.4 fL Normal 6.2-12.0 [facility] Comment on above: Performed By: #### L 509.1000 #### [facility] [address] [place], [address] Platelets (Bld) [#/Vol] 175 10*3/uL Normal 150-450 [facility] Comment on above: Performed By: #### L 509.1000 #### [facility] [address] [place], [address] RBC (Bld) [#/Vol] 4.75 10*6/uL Normal 4.6-6.[address] [facility] Comment on above: Performed By: #### L 509.1000 #### [facility] [address] [place], [address] RDW SD 44.2 fl High 35.1-43.9 [facility] Comment on above: Performed By: #### L 509.1000 #### [facility] [address] [place], [address] WBC (Bld) [#/Vol] 7.6 10*3/uL Normal 4.4-11.0 [facility] Comment on above: Performed By: #### L 509.1000 #### [facility] [address] [place], [address] Carbon dioxide measurementOr dered By: Elmer Gillette on 09-29-2024 CO2 [Moles/Vol] 28.0 mmol/L 21.0-32.0 [facility] Chloride measurementOrdered By: Elmer Gillette on 09-29-2024 Chloride [Moles/Vol] 107 mmol/L 98-107 [facility] Comprehensive Metabolic Prof ilon 09-29-2024 Albumin [Mass/Vol] 3.5 g/dL Normal 3.2-5.0 [facility] Comment on above: Performed By: #### L 509.1000 #### [facility] [address] [place], [address] Albumin/Globulin [Mass ratio] 1.0 {ratio} Normal 0.9-2.4 [facility] Comment on above: Performed By: #### L 509.1000 #### [facility] [address] [place], [address] ALK P 62 U/L Normal 45-117 [facility] Comment on above: Performed By: #### L 509.1000 #### [facility] [address] [place], [address] ALT [Catalytic activity/Vol] 68 U/L High 16-61 [facility] Comment on above: Performed By: #### L 509.1000 #### [facility] [address] [place], [address] AST [Catalytic activity/Vol] 40 U/L High 15-37 [facility] Comment on above: Result Comment: Mode rate Hemolysis, Result may be falsely increased. Performed By: #### L 509.1000 #### [facility] [address] [place], [address] Bilirubin [Mass/Vol] 0.50 mg/dL Normal 0.20-1.00 [facility] Comment on above: Result Comment: For patients on eltrombopag therapy, use of Dimension [place] TBIL is not recommended. Performed By: #### L 509.1000 #### [facility] [address] [place], [address] BUN/CRE 15.8 RATIO Normal 10-20 [facility] Comment on above: Performed By: #### L 509.1000 #### [facility] [address] [place], [address] CA,Total 9.0 mg/dL Normal 8.5-10.1 [facility] Comment on above: Performed By: #### L 509.1000 #### [facility] [address] [place], [address] Chloride [Moles/Vol] 107 mmol/L Normal 98-107 [facility] Comment on above: Performed By: #### L 509.1000 #### [facility] [address] [place], [address] CO2 [Moles/Vol] 28.0 mmol/L Normal 21.0-32.0 [facility] Comment on above: Performed By: #### L 509.1000 #### [facility] [address] [place], [address] Creatinine [Mass/Vol] 1.39 mg/dL High 0.70-1.30 [facility] Comment on above: Result Comment: The validity of the calculated GFR GFRAA in patients over 70 years has not been determined. Clinical correlation is essential. Performed By: #### L 509.1000 #### [facility] [address] [place], [address] EST GFR - AA 63 mL/min Normal >60 [facility] Comment on above: Result Comment: Afri can [place] GFR Calc Performed By: #### L 509.1000 #### [facility] [address] [place], [address] GAP 5 Normal 5-15 [facility] Comment on above: Performed By: #### L 509.1000 #### [facility] [address] [place], [address] GFR/1.73 sq M.predicted among non-blacks MDRD (S/P/Bld) [Vol rate/Area] 52 mL/min/{1.73_m2} Low >60 [facility] Comment on above: Result Comment: Non- GFR Calc Performed By: #### L 509.1000 #### [facility] [address] [place], [address] Globulin (S) [Mass/Vol] 3.6 g/dL Normal 2.2-4.2 [facility] Comment on above: Performed By: #### L 509.1000 #### [facility] [address] [place], [address] Glucose [Mass/Vol] 99 mg/dL Normal 74-106 [facility] Comment on above: Performed By: #### L 509.1000 #### [facility] [address] [place], [address] Potassium [Moles/Vol] 4.2 mmol/L Normal 3.5-5.1 [facility] Comment on above: Result Comment: Mode rate Hemolysis, Result may be falsely increased. Performed By: #### L 509.1000 #### [facility] [address] [place], [address] Sodium [Moles/Vol] 140 mmol/L Normal 136-145 [facility] Comment on above: Performed By: #### L 509.1000 #### [facility] [address] [place] [id number] T PROT 7.1 g/dL Normal 6.4-8.2 [facility] Comment on above: Performed By: #### L 509.1000 #### [facility] [address] [place], [address] Urea nitrogen [Mass/Vol] 22 mg/dL High 7-18 [facility] Comment on above: Performed By: #### L 509.1000 #### [facility] [address] [place] [place], [address] Eosinophil percentageOrdered By: Elmer Gillette on 09-29-2024 Eosinophils/100 WBC (Bld) 2.6 % 0-5 [facility] Erythrocyte distribution wid th ratioOrdered By: Elmer Gillette on 09-29-2024 Erythrocyte distribution width (RBC) [Ratio] 12.6 % 11.6-14.6 [facility] Erythrocyte distribution wid th standard deviationOrdered By: Elmer Gillette on 09-29-2024 Erythrocyte distribution width (RBC) [Entitic vol] 44.2 fL High 35.1-43.9 [facility] Estimated glomerular filtrat ion rate (GFR) AmericanOrdered By: Elmer Gillette on 09-29-2024 Estimated GFR (MDRD) Amer 63 mL/min >60 [facility] Comment on above: GFR Calc Glomerular filtration rate ( GFR) estimationOrdered By: Elmer Gillette on 09-29-2024 Estimated GFR (MDRD) Non-Af Amer 52 mL/min Low >60 [facility] Comment on above: Non- GFR Calc Glucose measurementOrdered B y: Elmer Gillette on 09-29-2024 Glucose [Mass/Vol] 99 mg/dL 74-106 [facility] Hematocrit Auto (Bld) [Volum e fraction]Ordered By: Elmer Gillette on 09-29-2024 Hematocrit (Bld) [Volume fraction] 45.4 % 40-54 [facility] Hemoglobin measurementOrdere d By: Elmer Gillette on 09-29-2024 Hemoglobin (Bld) [Mass/Vol] 15.2 g/dL 13.0-16.5 [facility] High density lipoprotein (HD L) measurementOrdered By: Elmer Gillette on 09-29-2024 Cholesterol in HDL [Mass/Vol] 46 mg/dL >40 [facility] Comment on above: The drugs N-Acetylcy steine and Metamizole may falsely depress this assay. Reference Range HDL <40 mg/dL Low HDL Cholesterol HDL >or= 60 mg/dL High HDL Cholesterol Immature granulocytes/100 WB C Auto (Bld)Ordered By: Elmer Gillette on 09-29-2024 Immature granulocytes/100 WBC (Bld) 0.900 % 0.0-0.9 [facility] Comment on above: IG% - Immature Granu locytes (promyelocytes, myelocytes and metamyelocytes) > 1% indicates that a LEFT SHIFT is Present. Laboratory - Chemistry and C hemistry - challengeOrdered By: Elmer Gillette on 09-29-2024 AST [Catalytic activity/Vol] 40 U/L High 15-37 [facility] Comment on above: Moderate Hemolysis, Result may be falsely increased. Lipid Profileon 09-29-2024 Cholesterol [Mass/Vol] 147 mg/dL Normal 200 [facility] Comment on above: Result Comment: <200 mg/dL Desirable 200-240 mg/dL Borderline >240 mg/dL High Risk Performed By: #### L 509.1000 #### [facility] [address] [place], [place], [address] Cholesterol in HDL [Mass/Vol] 46 mg/dL Normal [facility] Comment on above: Result Comment: The drugs N-Acetylcysteine and Metamizole may falsely depress this assay. Reference Range HDL <40 mg/dL Low HDL Cholesterol HDL >or= 60 mg/dL High HDL Cholesterol Performed By: #### L 509.1000 #### [facility] [address] [place], [address] Cholesterol in LDL [Mass/Vol] 49 mg/dL Normal 0-130 [facility] Comment on above: Performed By: #### L 509.1000 #### [facility] [address] [place], [address] Cholesterol in VLDL [Mass/Vol] 52 mg/dL High 5-40 [facility] Comment on above: Performed By: #### L 509.1000 #### [facility] [address] [place], [address] Triglyceride [Mass/Vol] 260 mg/dL High [facility] Comment on above: Result Comment: The drugs N-Acetylcysteine and Metamizole may falsely depress this assay. Serum Triglycerides Reference Interval Normal <150 mg/dL Borderline high 150 - 199 mg/dL High 200 - 499 mg/dL Very High > or = 500 mg/dL Performed By: #### L 509.1000 #### [facility] [address] [place], [address] Low density lipoprotein (LDL ) cholesterol measurementOrdered By: Elmer Gillette on 09-29-2024 Cholesterol in LDL [Mass/Vol] 49 mg/dL 0-130 [facility] Lymphocytes Auto (Unsp spec) [#/Vol]Ordered By: Elmer Gillette on 09-29-2024 Lymphocytes (Bld) [#/Vol] 1.69 10*3/uL 0.83-4.51 [facility] Lymphocytes/100 WBC Auto (Un sp spec)Ordered By: Elmer Gillette on 09-29-2024 Lymphocytes/100 WBC (Bld) 22.3 % 19-41 [facility] MCV (mean corpuscular volume ) determinationOrdered By: Elmer Gillette on 09-29-2024 MCV (RBC) [Entitic vol] 95.6 fL High 80-94 [facility] Mean corpuscular hemoglobin (MCH) determinationOrdered By: Elmer Gillette on 09-29-2024 MCH (RBC) [Entitic mass] 32.0 pg 27.0-32.0 [facility] Mean corpuscular hemoglobin concentration (MCHC) determinationOrdered By: Elmer Gillette on 09-29-2024 MCHC (RBC) [Mass/Vol] 33.5 g/dL 32-36 [facility] Mean platelet volume determi nationOrdered By: Elmer Gillette on 09-29-2024 Platelet mean volume (Bld) [Entitic vol] 9.4 fL 6.2-12.0 [facility] Monocyte percentageOrdered B y: Elmer Gillette on 09-29-2024 Monocytes/100 WBC (Bld) 11.3 % High 0-10 [facility] Neutrophil percentageOrdered By: Elmer Gillette on 09-29-2024 Neutrophils/100 WBC (Bld) 61.8 % 47-70 [facility] Nucleated red blood cell per centageOrdered By: Elmer Gillette on 09-29-2024 Nucleated RBC/100 WBC (Bld) [Ratio] 0 % 0-5 [facility] Platelet countOrdered By: Higinio Gillette on 09-29-2024 Platelets (Bld) [#/Vol] 175 10*3/uL 150-450 [facility] Potassium measurementOrdered By: Elmer Gillette 09-29-2024 Potassium [Moles/Vol] 4.2 mmol/L 3.5-5.1 [facility] Comment on above: Moderate Hemolysis, Result may be falsely increased. RBC Auto (Bld) [#/Vol]Ordere d By: Elmer Gillette on 09-29-2024 RBC (Bld) [#/Vol] 4.75 10*6/uL 4.6-6.[address] [facility] Serum anion gap measurementO rdered By: Elmer Gillette on 09-29-2024 Anion gap [Moles/Vol] 5 mmol/L 5-15 [facility] Serum globulin measurementOr dered By: Elmer Gillette 09-29-2024 Globulin (S) [Mass/Vol] 3.6 g/dL 2.2-4.2 [facility] Serum or plasma alanine doll otransferase (ALT) measurementOrdered By: Elmer Gillette 09-29-2024 ALT [Catalytic activity/Vol] 68 U/L High 16-61 [facility] Serum or plasma albumin keesha urement (mass/volume)Ordered By: Elmer Gillette on 09-29-2024 Albumin [Mass/Vol] 3.5 g/dL 3.2-5.0 [facility] Serum or plasma alkaline marysol sphatase measurementOrdered By: Elmer Gillette on 09-29-2024 ALP [Catalytic activity/Vol] 62 U/L 45-117 [facility] Serum or plasma calcium keesha urement (mass/volume)Ordered By: Elmer Gillette on 09-29-2024 Calcium [Mass/Vol] 9.0 mg/dL 8.5-10.1 [facility] Serum or plasma cholesterol measurement (mass/volume)Ordered By: Elmer Gillette on 09-29-2024 Cholesterol [Mass/Vol] 147 mg/dL <200 [facility] Comment on above: <200 mg/dL Desirable 200-240 mg/dL Borderline >240 mg/dL High Risk Serum or plasma creatinine m easurement (mass/volume)Ordered By: Elmer Gillette on 09-29-2024 Creatinine [Mass/Vol] 1.39 mg/dL High 0.70-1.30 [facility] Comment on above: The validity of the calculated GFR & GFRAA in patients over 70 years has not been determined. Clinical correlation is essential. Serum or plasma urea nitroge n measurement (mass/volume)Ordered By: Elmer Gillette on 09-29-2024 Urea nitrogen [Mass/Vol] 22 mg/dL High 7-18 [facility] Sodium levelOrdered By: Elmer Gillette on 09-29-2024 Sodium [Moles/Vol] 140 mmol/L 136-145 [facility] TSH QnOrdered By: Elmer Gillette o n 09-29-2024 Thyroid Stimulating Hormone (TSH) 2.460 uIU/mL 0.358-3.740 [facility] Thyroid Stim Hormone (TSH)on 09-29-2024 TSH 2.460 uIU/mL Normal 0.358-3.740 [facility] Comment on above: Performed By: #### L 509.1000 #### [facility] [place], [address] Total proteinOrdered By: Elmer Gillette on 09-29-2024 Protein [Mass/Vol] 7.1 g/dL 6.4-8.2 [facility] Triglycerides measurementOrd ered By: Elmer Gillette on 09-29-2024 Triglyceride [Mass/Vol] 260 mg/dL High <199 [facility] Comment on above: The drugs N-Acetylcy steine and Metamizole may falsely depress this assay.Serum Triglycerides Reference Interval Normal <150 mg/dL Borderline high 150 - 199 mg/dL High 200 - 499 mg/dL Very High > or = 500 mg/dL Very low density lipoprotein (VLDL) cholesterol measurementOrdered By: Elmer Gillette on 09-29-2024 VLDL Cholesterol 52 mg/dL High 5-40 [facility] Vitamin D,25 Hydroxyon 09-29 Vitamin D 25-OH 37.8 ng/mL Normal [facility] Comment on above: Order Comment: SUJEY [...] Performed By: #### L 500.2500, L506.1000 #### [facility] [address] [place] [address], [address] White blood cell (WBC) count Ordered By: Elmer Gillette on 09-29-2024 WBC (Bld) [#/Vol] 7.6 10*3/uL 4.4-11.0 [facility] 22-VJ-Vceambh DOrdered By: Jenifer Padilla on 09-15-2024 Vitamin D 25-Hydroxy 28.8 ng/mL [facility] Comment on above: Vitamin D 25(OH) Sta tus Range Deficiency <20 ng/mL (50nmol/L) Insufficiency 20 - 30 ng/mL (50 - 75 nmol/L) Sufficiency 30 - 100 ng/mL (75 - 250 nmol/L) Toxicity >100 ng/mL (>250 nmol/L) Albumin to globulin ratioOrd ered By: Jared Padilla on 09-15-2024 Albumin/Globulin [Mass ratio] 1.1 {ratio} 0.9-2.4 [facility] Bilirubin, totalOrdered By: Jared Padilla on 09-15-2024 Bilirubin [Mass/Vol] 0.40 mg/dL 0.20-1.00 [facility] Comment on above: For patients on eltr ombopag therapy, use of Dimension [place] TBIL is not recommended. Blood urea nitrogen (BUN)/cr eatinine ratioOrdered By: Jared Padilla on 09-15-2024 Urea nitrogen/Creatinine [Mass ratio] 13.7 mg/mg 10-20 [facility] Carbon dioxide measurementOr dered By: Jared Padilla on 09-15-2024 CO2 [Moles/Vol] 28.0 mmol/L 21.0-32.0 [facility] Chloride measurementOrdered By: Jared Padilla on 09-15-2024 Chloride [Moles/Vol] 110 mmol/L High 98-107 [facility] Comprehensive Metabolic Prof ilon 09-15-2024 Albumin [Mass/Vol] 3.6 g/dL Normal 3.2-5.0 [facility] Comment on above: Performed By: #### L 500.4050, L506.1000, L509.1000 #### [facility] [address] [place], [address] Albumin/Globulin [Mass ratio] 1.1 {ratio} Normal 0.9-2.4 [facility] Comment on above: Performed By: #### L 500.4050, L506.1000, L509.1000 #### [facility] [address] [place], [address] ALK P 54 U/L Normal 45-117 [facility] Comment on above: Performed By: #### L 500.4050, L506.1000, L509.1000 #### [facility] [address] [place], [address] ALT [Catalytic activity/Vol] 46 U/L Normal 16-61 [facility] Comment on above: Performed By: #### L 500.4050, L506.1000, L509.1000 #### [facility] [address] [place], [address] AST [Catalytic activity/Vol] 22 U/L Normal 15-37 [facility] Comment on above: Performed By: #### L 500.4050, L506.1000, L509.1000 #### [facility] [address] [place], [address] Bilirubin [Mass/Vol] 0.40 mg/dL Normal 0.20-1.00 [facility] Comment on above: Result Comment: For patients on eltrombopag therapy, use of Dimension [place] TBIL is not recommended. Performed By: #### L 500.4050, L506.1000, L509.1000 #### [facility] [address] [place], [address] BUN/CRE 13.7 RATIO Normal 10-20 [facility] Comment on above: Performed By: #### L 500.4050, L506.1000, L509.1000 #### [facility] [address] [place], [address] CA,Total 9.1 mg/dL Normal 8.5-10.1 [facility] Comment on above: Performed By: #### L 500.4050, L506.1000, L509.1000 #### [facility] [address] [place], [address] Chloride [Moles/Vol] 110 mmol/L High 98-107 [facility] Comment on above: Performed By: #### L 500.4050, L506.1000, L509.1000 #### [facility] [address] [place], [address] CO2 [Moles/Vol] 28.0 mmol/L Normal 21.0-32.0 [facility] Comment on above: Performed By: #### L 500.4050, L506.1000, L509.1000 #### [facility] [address] [place], [address] Creatinine [Mass/Vol] 1.17 mg/dL Normal 0.70-1.30 [facility] Comment on above: Result Comment: The validity of the calculated GFR GFRAA in patients over 70 years has not been determined. Clinical correlation is essential. Performed By: #### L 500.4050, L506.1000, L509.1000 #### [facility] [address] [place], [address] EST GFR - AA 77 mL/min Normal >60 [facility] Comment on above: Result Comment: Afri can [place] GFR Calc Performed By: #### L 500.4050, L506.1000, L509.1000 #### [facility] [address] [place], [address] GAP 4 Low 5-15 [facility] Comment on above: Performed By: #### L 500.4050, L506.1000, L509.1000 #### [facility] [address] [place], [address] GFR/1.73 sq M.predicted among non-blacks MDRD (S/P/Bld) [Vol rate/Area] 64 mL/min/{1.73_m2} Normal >60 [facility] Comment on above: Result Comment: Non- GFR Calc Performed By: #### L 500.4050, L506.1000, L509.1000 #### [facility] [address] [place], [address] Globulin (S) [Mass/Vol] 3.2 g/dL Normal 2.2-4.2 [facility] Comment on above: Performed By: #### L 500.4050, L506.1000, L509.1000 #### [facility] [address] [place], [address] Glucose [Mass/Vol] 88 mg/dL Normal 74-106 [facility] Comment on above: Performed By: #### L 500.4050, L506.1000, L509.1000 #### [facility] [address] [place], [address] Potassium [Moles/Vol] 3.8 mmol/L Normal 3.5-5.1 [facility] Comment on above: Performed By: #### L 500.4050, L506.1000, L509.1000 #### [facility] [address] [place], [address] Sodium [Moles/Vol] 141 mmol/L Normal 136-145 [facility] Comment on above: Performed By: #### L 500.4050, L506.1000, L509.1000 #### [facility] [address] [place], [address] T PROT 6.8 g/dL Normal 6.4-8.2 [facility] Comment on above: Performed By: #### L 500.4050, L506.1000, L509.1000 #### [facility] [address] [place], [address] Urea nitrogen [Mass/Vol] 16 mg/dL Normal 7-18 [facility] Comment on above: Performed By: #### L 500.4050, L506.1000, L509.1000 #### [facility] [address] [place], [address] Estimated glomerular filtrat ion rate (GFR) AmericanOrdered By: Jared Padilla on 09-15-2024 Estimated GFR (MDRD) Amer 77 mL/min >60 [facility] Comment on above: GFR Calc Glomerular filtration rate ( GFR) estimationOrdered By: Jared Padilla on 09-15-2024 Estimated GFR (MDRD) Non-Af Amer 64 mL/min >60 [facility] Comment on above: Non- GFR Calc Glucose measurementOrdered B y: Jared Padilla on 09-15-2024 Glucose [Mass/Vol] 88 mg/dL 74-106 [facility] Intact parathyroid hormone ( iPTH) measurementOrdered By: Jared Padilla on 09-15-2024 Parathyroid Hormone (Intact) 30.1 pg/mL 18.4-80.1 [facility] L501.0895on 09-15-2024 Calcium [Mass/Vol] 9.2 mg/dL Normal 8.5-10.1 [facility] Comment on above: Performed By: #### L 500.4050, L506.1000, L509.1000 #### [facility] [address] [place], [address] Laboratory - Chemistry and C hemistry - challengeOrdered By: Jared Padilla on 09-15-2024 AST [Catalytic activity/Vol] 22 U/L 15-37 [facility] Magnesiumon 09-15-2024 Magnesium [Mass/Vol] 2.4 mg/dL Normal 1.6-2.6 [facility] Comment on above: Performed By: #### L 500.4050, L506.1000, L509.1000 #### [facility] [address] [place], [place], [address] Magnesium measurementOrdered By: Migdalia Dunlap on 09-15-2024 Magnesium [Mass/Vol] 2.4 mg/dL 1.6-2.6 [facility] PTHINon 09-15-2024 PTH 30.1 pg/mL Normal 18.4-80.1 [facility] Comment on above: Performed By: #### L 500.4050, L506.1000, L509.1000 #### [facility] [address] [place], [place], [address] Potassium measurementOrdered By: Jared Padilla on 09-15-2024 Potassium [Moles/Vol] 3.8 mmol/L 3.5-5.1 [facility] Serum anion gap measurementO rdered By: Jared Padilla on 09-15-2024 Anion gap [Moles/Vol] 4 mmol/L Low 5-15 [facility] Serum globulin measurementOr dered By: Jared Padilla on 09-15-2024 Globulin (S) [Mass/Vol] 3.2 g/dL 2.2-4.2 [facility] Serum or plasma alanine doll otransferase (ALT) measurementOrdered By: Jared Padilla on 09-15-2024 ALT [Catalytic activity/Vol] 46 U/L 16-61 [facility] Serum or plasma albumin keesha urement (mass/volume)Ordered By: Jared Padilla on 09-15-2024 Albumin [Mass/Vol] 3.6 g/dL 3.2-5.0 [facility] Serum or plasma alkaline marysol sphatase measurementOrdered By: Jared Padilla on 09-15-2024 ALP [Catalytic activity/Vol] 54 U/L 45-117 [facility] Serum or plasma calcium keesha urement (mass/volume)Ordered By: Migdalia Dunlap on 09-15-2024 Calcium [Mass/Vol] 9.2 mg/dL 8.5-10.1 [facility] Serum or plasma creatinine m easurement (mass/volume)Ordered By: Jared Padilla on 09-15-2024 Creatinine [Mass/Vol] 1.17 mg/dL 0.70-1.30 [facility] Comment on above: The validity of the calculated GFR & GFRAA in patients over 70 years has not been determined. Clinical correlation is essential. Serum or plasma urea nitroge n measurement (mass/volume)Ordered By: Jared Padilla on 09-15-2024 Urea nitrogen [Mass/Vol] 16 mg/dL 7-18 [facility] Sodium levelOrdered By: Jared Padilla on 09-15-2024 Sodium [Moles/Vol] 141 mmol/L 136-145 [facility] Total proteinOrdered By: Jonny Padilla on 09-15-2024 Protein [Mass/Vol] 6.8 g/dL 6.4-8.2 [facility] Vitamin D,25 Hydroxyon 09-15 Vitamin D 25-OH 28.8 ng/mL Normal [facility] Comment on above: Result Comment: Terrie min D 25(OH) Status Range Deficiency <20 ng/mL (50nmol/L) Insufficiency 20 - 30 ng/mL (50 - 75 nmol/L) Sufficiency 30 - 100 ng/mL (75 - 250 nmol/L) Toxicity >100 ng/mL (>250 nmol/L) Performed By: #### L 500.4050, L506.1000, L509.1000 #### [facility] [address] [place], [address] Calcium,Totalon 09-10-2024 CA,Total 10.1 mg/dL Normal 8.5-10.1 [facility] Comment on above: Performed By: #### L 500.4050, L506.1000, L509.1000 #### [facility] [address] [place], [address] Intact parathyroid hormone ( iPTH) measurementOrdered By: Migdalia Dunlap on 09-10-2024 Parathyroid Hormone (Intact) 10.9 pg/mL Low 18.4-80.1 [facility] PTHINon 09-10-2024 PTH 10.9 pg/mL Low 18.4-80.1 [facility] Comment on above: Performed By: #### L 500.4050, L506.1000, L509.1000 #### [facility] [address] [place], [address] Serum or plasma calcium keesha urement (mass/volume)Ordered By: Migdalia Dunlap on 09-10-2024 Calcium [Mass/Vol] 10.1 mg/dL 8.5-10.1 [facility] Calcium,Totalon 09-03-2024 CA,Total 11.4 mg/dL High 8.5-10.1 [facility] Comment on above: Performed By: #### L 500.4050, L506.1000, L509.1000 #### [facility] [address] [place], [address] Intact parathyroid hormone ( iPTH) measurementOrdered By: Kamaljit Koehler on 09-03-2024 Parathyroid Hormone (Intact) 6.7 pg/mL Low 18.4-80.1 [facility] PTHINon 09-03-2024 PTH 6.7 pg/mL Low 18.4-80.1 [facility] Comment on above: Performed By: #### L 500.4050, L506.1000, L509.1000 #### [facility] [address] [place], [address] Serum or plasma calcium keesha urement (mass/volume)Ordered By: Kamaljit Koehler on 09-03-2024 Calcium [Mass/Vol] 11.4 mg/dL High 8.5-10.1 [facility] Surgery Visit Reporton 09-03 Surgery Visit Report [facility] [address] [place] [address] OFFICE VISIT Date of Service: 09/03/24 MR#: [id number] Acct: [id number] Name: YAHAIRA MORFIN Rep #: [id number] : 1945 Provider: Dr. 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 Normal [facility] Discharge Instructionon 08-06 Discharge Instruction [facility] Medical Records Department [address] [place] [address] Instructions for Home/Discharge Instructions 08/22/24 1209 MR#: [id number] Acct: [id number] Name: YAHAIRA MORFIN Rajesh Rep #: [id number] : 1945 78 From: Kamaljit Koehler MD PCP: Dr. Elmer Gillette MD Status:DEP [facility] Discharge Instructions Diet Discharge [...] Consulting Providers: Live Muñoz Instructions Print Language: Citizen Of [place] Discharge Orders/Prescriptions Prescriptions: New calcium carbonate-vitamin D3 [Os-Adelso 500 + D3] 500 mg-15 mcg (600 unit) tablet 2 tab PO BID 15 Days Qty: 60 0RF calcitriol 0.25 mcg capsule 0.25 mcg PO DAILY 15 Days Qty: 15 0RF Continued rosuvastatin 40 mg tablet 40 mg PO DAILY aspirin 81 mg tablet,delayed release (DR/EC) 81 mg PO DAILY omega 8-gjr-ipl-fish oil [Fish Oil] 1,200 (144-216) mg capsule [...] Live Muñoz Referrals / Follow Up: Elmer Gilletet Chi, MD [Primary Care Provider] - Disposition Disposition (needs filled in before D/C Order can be placed): Home, Self Care 08/22/24 165 Kamaljit Koehler MD CC: Dr. Live Muñoz MD; Dr. Elmer Gillette MD Signed Normal [facility] Frozen Section (charge)on Frozen Section (charge) ------ ---- Patient Age/Sex Location Account Attending Physician ---- YAHAIRA MORFIN 78/M [facility] [id number] Dr. Kamaljit Koehler MD ---- Specimen: [id number] Received: 08/22/24 Status: KENDRA Roach Num: [id number] Spec Type: PARATHY Subm Dr: Dr. Kamaljit [...] parathyroid gland, excision: Hyperplastic parathyroid gland (0.188gm). [email or web address] 08/22/2024 MICROSCOPIC DIAGNOSIS A. Right inferior parathyroid gland, excision: Hyperplastic parathyroid gland tissue (822mg). See comment. B. Right superior parathyroid gland, biopsy: Unremarkable parathyroid tissue (0.001gm). C. Left inferior parathyroid gland, excision: Hyperplastic parathyroid gland tissue (0.188gm). 08/25/2024 COMMENT A. Unremarkable parathyroid tissue is also noted at the periphery of the hyperplastic parathyroid gland tissue. Findings may represent parathyroid adenoma. MICROSCOPIC DESCRIPTION Slides are reviewed. ---- Patient Age/Sex Location Account Attending Physician ---- YAHAIRA MORFIN 78/M [facility] [id number] Dr. Kamaljit Koehler MD ---- GROSS DESCRIPTION [...] for frozen section diagnosis in one cassette. 08/22/2024 TC:[id number] ---- Patient Age/Sex Location Account Attending Physician ---- YAHAIRA MORFIN 78/M [facility] [id number] Dr. Kamaljit Koehler MD ---- Signed (signature on file) Dr. Jay Olivera MD 08/25/24 1309 ---- Normal [facility] Comment on above: Performed By: #### L 500.4050, L506.1000, L509.1000 #### [facility] [address] [place], [address] Intact parathyroid hormone ( iPTH) measurementOrdered By: Kamaljit Koehler on 08-22-2024 Parathyroid Hormone (Intact) 9.2 pg/mL Low 18.4-80.1 [facility] MR/POSTOP.ANEon 08-22-2024 MR/POSTOP.[facility] Medical Records Department [address] [place] [address] Anesthesia Postop Eval I 08/22/241216 MR#: [id number] Acct: [id number] Name: YAHAIRA MORFIN Rep #: [id number] : 1945 78 From: Neha Cardona CRNA PCP: Dr. Elmer Gillette MD Status:REG SDC Y Race: C Location: [place] [address] Anesthesia: Postop Eval I Current Vital Signs [...] Anesthesia document: Postop Eval 1 completed: Yes 08/22/241217 Date Neha Cardona CRNA Cosigner Signature: Date CC: Signed [facility] MR/TBTVJOAU1ry 08-22-2024 MR/POSTOPAN2 [facility] Medical Records Department [address] [place] [address] Anesthesia Postop Eval II 08/22/24 1241 MR#: [id number] Acct: [id number] Name: YAHAIRA MORFIN Rep #: [id number] : 1945 78 From: Kael Melissa MD PCP: Dr. 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 Vomiting No 08/22/24 12:18 BUSINESS MACHINES [email or web address].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 Anesthesia Postop Eval I: Fluid Summary Crystalloid volume administer 1,400 08/22/24 12:18 BUSINESS MACHINES [email or web address].[email or web address] (ml) Colloids volume administered ( ml) Blood Product volume administered (ml) Total IV fluid infused 1,400 08/22/24 12:18 BUSINESS MACHINES [email or web address].[email or web address] Anesthesia Postop Eval I: Summary Notes Anesthesia Complication No 08/22/24 12:18 BUSINESS MACHINES [email or web address].[email or web address] Anesthesia Complication Comment: Post-operative progress note Anesthesia: Postop Eval II Evaluation Mental status: Awake and Calm Pain Level: 1 nausea: No Vomiting: No Complications Anesthesia Complication: No 08/22/24 1242 Date Kael Melissa MD Cosigner Signature: Date CC: Signed Normal [facility] Operative Reporton 5 Operative Report [facility] Medical Records Department [address] [place] [address] Operative Report 08/22/24 1206 MR#: [id number] Acct: [id number] Name: YAHAIRA MORFIN Rep #: [id number] : 1945 78 From: Kamaljit Koehler MD PCP: Dr. 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 With this exposure I elevated the pole of the right thyroid lobe. It [...] to identif (more content not included)... Normal [facility] PTHINon 08-22-2024 PTH 9.2 pg/mL Low 18.4-80.1 [facility] Comment on above: Performed By: #### L 509.1000 #### [facility] [address] [place], [address] PTH 17.2 pg/mL Low 18.4-80.1 [facility] Comment on above: Performed By: #### L 509.1000 #### [facility] [address] [place], [address] PTH 19.6 pg/mL Normal 18.4-80.1 [facility] Comment on above: Performed By: #### L 509.1000 #### [facility] [address] [place], [address] PTH 71.2 pg/mL Normal 18.4-80.1 [facility] Comment on above: Performed By: #### L 500.4050, L506.1000, L509.1000 #### [facility] [address] [place], [address] PTH 91.6 pg/mL High 18.4-80.1 [facility] Comment on above: Performed By: #### L 500.4050, L506.1000, L509.1000 #### [facility] [address] [place], [address] PTH 95.3 pg/mL High 18.4-80.1 [facility] Comment on above: Performed By: #### L 500.4050, L506.1000, L509.1000 #### [facility] [address] [place], [address] PTH 241.0 pg/mL High 18.4-80.1 [facility] Comment on above: Performed By: #### L 509.1000 #### [facility] [address] [place], [address] PTH 159.0 pg/mL High 18.4-80.1 [facility] Comment on above: Order Comment: NEEDE D @MADE UP. SPOKE WITH SURGERY(MELLISA?) AT 730 TO [place] KNOW OF @DELAY. SHE SAID IT WAS OK THEY JUST WANTED APRE-OP PTH. Performed By: #### L 500.4050, L506.1000, L509.1000 #### [facility] [address] [place], [address] 12 Lead EKGon 08-15-2024 12 Lead EKG [facility] Cardi[facility] Services [address] [place] [address] 12 Lead EKG 08/15/24 0751 MR#: [id number] Acct: [id number] Name: YAHAIRA MORFIN Rep #: [id number] : 1945 78 From: Kamaljit Hendricks MD Attending Dr: Dr. Kamaljit Koehler MD Status: [facility] Ordering Dr: Live Muñoz MD Date: 08/15/24 Location: [facility] Sex: M C Admitted: [...] ischemia Abnormal ECG Confirmed by Kamaljit Hendricks ([id number]), general expeditor AICHA MARIE ([id number]) on 08/15/2024 12:59:25 PM Referred By: Kamalijt Koehler Confirmed By: Kamaljit Hendricks 08/15/24 1259 Date Kamaljit Hendricks MD CC: Dr. Live Muñoz MD; Dr. Kamaljit Koehler MD; Dr. Elmer Gillette MD Signed [facility] Basic Metabolic Profile (BMP )on 08-15-2024 BUN/CRE 15.5 RATIO Normal 10-20 [facility] Comment on above: Performed By: #### L 100.0500, L500.2500 ####[facility] [address] [place], [address] CA,Total 11.1 mg/dL High 8.5-10.1 [facility] Comment on above: Performed By: #### L 100.0500, L500.2500 ####[facility] [address] [place], [address] Chloride [Moles/Vol] 110 mmol/L High 98-107 [facility] Comment on above: Performed By: #### L 100.0500, L500.2500 ####[facility] [address] [place], [address] CO2 [Moles/Vol] 26.0 mmol/L Normal 21.0-32.0 [facility] Comment on above: Performed By: #### L 100.0500, L500.2500 ####[facility] [address] [place], [address] Creatinine [Mass/Vol] 1.29 mg/dL Normal 0.70-1.30 [facility] Comment on above: Result Comment: The validity of the calculated GFR GFRAA in patients over 70 years has not been determined. Clinical correlation is essential. Performed By: #### L 100.0500, L500.2500 ####[facility] [address] [place], [address] EST GFR - AA 69 mL/min Normal >60 [facility] Comment on above: Result Comment: Afri can [place] GFR Calc Performed By: #### L 100.0500, L500.2500 ####[facility] [address] [place], [address] GAP 2 Low 5-15 [facility] Comment on above: Performed By: #### L 100.0500, L500.2500 ####[facility] [address] [place], [address] GFR/1.73 sq M.predicted among non-blacks MDRD (S/P/Bld) [Vol rate/Area] 57 mL/min/{1.73_m2} Low >60 [facility] Comment on above: Result Comment: Non- GFR Calc Performed By: #### L 100.0500, L500.2500 ####[facility] [address] [place], [address] Glucose [Mass/Vol] 134 mg/dL High 74-106 [facility] Comment on above: Result Comment: Fast ing Glucose result greater than or equal to 126 mg/dL suggests DIABETES MELLITUS per A.D.A. criteria. Performed By: #### L 100.0500, L500.2500 ####[facility] [address] [place], [address] Potassium [Moles/Vol] 4.6 mmol/L Normal 3.5-5.1 [facility] Comment on above: Performed By: #### L 100.0500, L500.2500 ####[facility] [address] [place], [address] Sodium [Moles/Vol] 139 mmol/L Normal 136-145 [facility] Comment on above: Performed By: #### L 100.0500, L500.2500 ####[facility] [address] [place], [address] Urea nitrogen [Mass/Vol] 20 mg/dL High 7-18 [facility] Comment on above: Performed By: #### L 100.0500, L500.2500 ####[facility] [address] [place], [address] Blood urea nitrogen (BUN)/cr eatinine ratioOrdered By: Live Muñoz on 08-15-2024 Urea nitrogen/Creatinine [Mass ratio] 15.5 mg/mg 10- [facility] CBC-Complete Blood Cnt No Di ffon 08-15-2024 Erythrocyte distribution width (RBC) [Ratio] 12.8 % Normal 11.6-14.6 [facility] Comment on above: Performed By: #### L 100.0500, L500.2500 ####[facility] [address] [place], [address] Hematocrit (Bld) [Volume fraction] 50.6 % Normal 40-54 [facility] Comment on above: Performed By: #### L 100.0500, L500.2500 ####[facility] [address] [place], [address] Hemoglobin (Bld) [Mass/Vol] 16.6 g/dL High 13.0-16.5 [facility] Comment on above: Performed By: #### L 100.0500, L500.2500 ####[facility] [address] [place], [address] MCH (RBC) [Entitic mass] 31.6 pg Normal 27.0-32.0 [facility] Comment on above: Performed By: #### L 100.0500, L500.2500 ####[facility] [address] [place], [address] MCHC (RBC) [Mass/Vol] 32.8 g/dL Normal 32-36 [facility] Comment on above: Performed By: #### L 100.0500, L500.2500 ####[facility] [address] [place], [address] MCV (RBC) [Entitic vol] 96.4 fL High 80-94 [facility] Comment on above: Performed By: #### L 100.0500, L500.2500 ####[facility] [address] [place], [address] Platelet mean volume (Bld) [Entitic vol] 9.3 fL Normal 6.2-12.0 [facility] Comment on above: Performed By: #### L 100.0500, L500.2500 ####[facility] [address] [place], [address] Platelets (Bld) [#/Vol] 179 10*3/uL Normal 150-450 [facility] Comment on above: Performed By: #### L 100.0500, L500.2500 ####[facility] [address] [place], [address] RBC (Bld) [#/Vol] 5.25 10*6/uL Normal 4.6-6.[address] [facility] Comment on above: Performed By: #### L 100.0500, L500.2500 ####[facility] [address] [place], [address] RDW SD 45.4 fl High 35.1-43.9 [facility] Comment on above: Performed By: #### L 100.0500, L500.2500 ####[facility] [address] [place], [address] WBC (Bld) [#/Vol] 5.8 10*3/uL Normal 4.4-11.0 [facility] Comment on above: Performed By: #### L 100.0500, L500.2500 ####[facility] [address] [place], [address] Carbon dioxide measurementOr dered By: Live Muñoz on 08-15-2024 CO2 [Moles/Vol] 26.0 mmol/L 21.0-32.0 [facility] Chloride measurementOrdered By: Live Muñoz on 08-15-2024 Chloride [Moles/Vol] 110 mmol/L High 98-107 [facility] Erythrocyte distribution wid th ratioOrdered By: Live Muñoz on 08-15-2024 Erythrocyte distribution width (RBC) [Ratio] 12.8 % 11.6-14.6 [facility] Erythrocyte distribution wid th standard deviationOrdered By: Live Muñoz on 08-15-2024 Erythrocyte distribution width (RBC) [Entitic vol] 45.4 fL High 35.1-43.9 [facility] Estimated glomerular filtrat ion rate (GFR) AmericanOrdered By: Live Muñoz on 08-15-2024 Estimated GFR (MDRD) Amer 69 mL/min >60 [facility] Comment on above: GFR Calc Glomerular filtration rate ( GFR) estimationOrdered By: Live Muñoz on 08-15-2024 Estimated GFR (MDRD) Non-Af Amer 57 mL/min Low >60 [facility] Comment on above: Non- GFR Calc Glucose measurementOrdered B y: Live Muñoz on 08-15-2024 Glucose [Mass/Vol] 134 mg/dL High 74-106 [facility] Comment on above: Fasting Glucose resu lt greater than or equal to 126 mg/dL suggests DIABETES MELLITUS per A.D.A. criteria. Hematocrit Auto (Bld) [Volum e fraction]Ordered By: Live Muñoz on 08-15-2024 Hematocrit (Bld) [Volume fraction] 50.6 % 40-54 [facility] Hemoglobin measurementOrdere d By: Live Muñoz on 08-15-2024 Hemoglobin (Bld) [Mass/Vol] 16.6 g/dL High 13.0-16.5 [facility] MCV (mean corpuscular volume ) determinationOrdered By: Live Muñoz on 08-15-2024 MCV (RBC) [Entitic vol] 96.4 fL High 80-94 [facility] Mean corpuscular hemoglobin (MCH) determinationOrdered By: Live Muñoz on 08-15-2024 MCH (RBC) [Entitic mass] 31.6 pg 27.0-32.0 [facility] Mean corpuscular hemoglobin concentration (MCHC) determinationOrdered By: Live Muñoz on 08-15-2024 MCHC (RBC) [Mass/Vol] 32.8 g/dL 32-36 [facility] Mean platelet volume determi nationOrdered By: Live Muñoz on 08-15-2024 Platelet mean volume (Bld) [Entitic vol] 9.3 fL 6.2-12.0 [facility] PTHINon 08-15-2024 PTH 149.1 pg/mL High 18.4-80.1 [facility] Comment on above: Performed By: #### L 509.1000 #### [facility] [address] [place], [address] Platelet countOrdered By: Salvador Muñoz on 08-15-2024 Platelets (Bld) [#/Vol] 179 10*3/uL 150-450 [facility] Potassium measurementOrdered By: Live Muñoz on 08-15-2024 Potassium [Moles/Vol] 4.6 mmol/L 3.5-5.1 [facility] RBC Auto (Bld) [#/Vol]Ordere d By: Live Muñoz on 08-15-2024 RBC (Bld) [#/Vol] 5.25 10*6/uL 4.6-6.[address] [facility] Serum anion gap measurementO rdered By: Live Muñoz on 08-15-2024 Anion gap [Moles/Vol] 2 mmol/L Low 5-15 [facility] Serum or plasma calcium keesha urement (mass/volume)Ordered By: Live Muñoz on 08-15-2024 Calcium [Mass/Vol] 11.1 mg/dL High 8.5-10.1 [facility] Serum or plasma creatinine m easurement (mass/volume)Ordered By: Live Muñoz on 08-15-2024 Creatinine [Mass/Vol] 1.29 mg/dL 0.70-1.30 [facility] Comment on above: The validity of the calculated GFR & GFRAA in patients over 70 years has not been determined. Clinical correlation is essential. Serum or plasma urea nitroge n measurement (mass/volume)Ordered By: Live Muñoz on 08-15-2024 Urea nitrogen [Mass/Vol] 20 mg/dL High 7-18 [facility] Sodium levelOrdered By: Live Muñoz on 08-15-2024 Sodium [Moles/Vol] 139 mmol/L 136-145 [facility] White blood cell (WBC) count Ordered By: Live Muñoz on 08-15-2024 WBC (Bld) [#/Vol] 5.8 10*3/uL 4.4-11.0 [facility] MR/Jody 08-14-2024 MR/TORRIE.LUC [facility] Medical Records Department [address] [place] [address] PAT - Anesthesia 08/14/24 1434 MR#: [id number] Acct: [id number] Name: YAHAIRA MORFIN Rep #: [id number] : 1945 78 From: Live Muñoz MD PCP: Dr. Elmer Gillette MD Status:[facility] Y Race: C Location: [facility] ADDENDUM by Dr. 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 Hx Respiratory Tract Infection No 08/14/24 13:38 STOP Sleep Apnea STOP Sleep Apnea - 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: STOP Sleep Apnea - 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 Hx Hypertension Yes 08/14/24 13:38 Hx [...] Tobacco Use History Tobacco Use History - 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: Tobacco Use History - 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 Specify any problems Hx of Preganancy in last 3 N/A 08/14/24 13:38 Months Nurse Filling Out Transfusion [facility] 08/14/24 13:38 Questions: Date: 08/14/24 08/14/24 13:38 Time: 13:45 08/14/24 13:38 Patient unable to answer at this time (ie. confused, unrespo /Reproduction History /Reproductive History - 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: /Reproductive Hx- 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 Hx Now Gestational Age (in weeks): EDC: Hx Hx Para Hx Section SAB No 12/06/21 14:57 [facility] Medical History (Updated 08/14/24 @ 13:45 by Edilia Galloway) Wears hearing aid Wears dentures Wears glasses High cholesterol Non-smoker CPAP (continuous positive airway pressure) dependence Sleep apnea Cardiology follow-up encounter COVID-19 ( 09/2022) MARLYS on CPAP Vitamin D deficiency Atherosclerosis of coronary artery of [place] heart without angina pectoris Primary hyperparathyroidism History of deep vein thrombosis of lower extremity Kidney stones Condyloma acuminata Hyperlipidemia Hyperparathyroidism RLS (restless legs syndrome) Sleep apnea Dog bite DVT (deep (more content not included)... [facility] Surgery Visit Reporton 08-01 Surgery Visit Report [facility] [address] [place] [address]. [address] [place] [address] OFFICE VISIT Date of Service: 08/01/24 MR#: [id number] Acct: [id number] Name: YAHAIRA MORFIN Rep #: [id number] : 1945 Provider: Dr. 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 ABNORMAL 99m Tc SESTAMIBI CQOHUA-GZBTV-WG PARATHYROID IMAGING DUAL PHASE EXAMINATION. 2. 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 Patient has a history of prior radiation exposure which she states was related to his time in the [employer] business but insist that appropriate PPE was always used per OSHA. Patient has no family history of other endocrinopathies Patient does not have a diet high in dairy???citing limited intake of cheese and ice cream (more content not included)... [facility] Parathyroid SPECT w/ CONCUR CTon 07-17-2024 Parathyroid SPECT w/ CONCUR CT [facility] Imaging Services [address] [place] [address] Parathyroid SPECT w/ CONCUR CT MR#: [id number] Acct: [id number] Name: YAHAIRA MORFIN Rep #: [id number] : 1945 M 78 From: Sae Stiles PCP: Dr. Elmer Gillette MD Status: REG CL Study: Parathyroid SPECT w/ CONCUR CT Date of Exam: 1 09/17/23 Exam# [id number] Ordering Dr: Kamaljit Koehler [place] [id number] CLINICAL: 78-year-old male with clinical hyperparathyroidism. 99m [...] CT IMPRESSION: 1. ABNORMAL 99m Tc SESTAMIBI [id number] PARATHYROID IMAGING DUAL PHASE EXAMINATION. 2. 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 Electronically Signed: Sae Anderson DO at 10:39 EST Reading Location ID and State: [facility] / [place] Tel , Service support , CC: Dr. Kamaljit Koehler MD; Dr. Emler Gillette MD Balloon Tester: Signed [facility] Influenza virus A and B and SARS-CoV-2 (COVID-19) and Respiratory syncytial virus RNAOrdered By: Elmer Gillette on 06-13-2024 SARS-CoV-2 (COVID-19) RNA SUHAIL+probe Ql (Unsp spec) [facility] M100.678on 06-13-2024 M100.678 Pending SARS-CoV-2 (COVID 19) Negative INFLUENZA A Negative INFLUENZA B Negative RSV PCR Negative [facility] Comment on above: Performed By: #### L 500.4050, L506.1000, L509.1000 #### [facility] [place], [address] Surgery Visit Reporton 06-10 Surgery Visit Report [facility] [address] [place] [address] OFFICE VISIT Date of Service: 06/10/24 MR#: [id number] Acct: [id number] Name: YAHAIRA MORFIN Rep #: [id number] : 1945 Provider: Dr. 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 Is patient in pain?: No [...] 06/10/24 History mcg (1,000 unit) tablet omega 4-xmf-foa-fish oil 1,200 mg cap PO BID 05/13/24 06/10/24 History (144 mg-216 mg) capsule (Fish Oil) Have you fallen in the past year?: No PFSH Medical History COVID-19 ( 09/2022) MARLYS on CPAP Vitamin D deficiency Atherosclerosis of coronary artery of [place] heart without angina pectoris Primary hyperparathyroidism History [...] him falling asleep in his chair), 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 Patient has a history of prior radiation exposure which she states was related to his time in the [employer] but insist that appropriate PPE was always [...] glands or (more content not included)... [facility] Thyroidon 05-29-2024 Thyroid [facility] [address] [place], [place] [address] Thyroid MR#: [id number] Acct: [id number] Name: YAHAIRA MORFIN Rep #: [id number] : 1945 M 78 From: Jona Espino MD PCP: Dr. Elmer Gillette MD Status: REG CLI Study: Thyroid Date of Exam: 05/29/24 Exam# [id number] Ordering Dr: Jared Padilla MD [id number] STUDY: THYROID ULTRASOUND REASON FOR EXAM: Male, [...] Signed: Jona Espino MD at 10:14 EDT Reading Location ID and State: [facility] / [place] , Service support , CC: Dr. Elmer Gillette MD; Dr. Jared Padilla MD Balloon Tester: Signed [facility] Endocrinology Visit Reporton 05-13-2024 Endocrinology Visit Report [facility] [address] [place] [address] OFFICE VISIT Date of Service: 05/13/24 MR#: [id number] Acct: [id number] Name: YAHAIRA MORFIN Rep #: [id number] : 1945 Provider: Ness Camacho Age/Sex: 78/M Location: [facility] Status: Signed Intake Vital Signs 09/13/23 08:20 [...] 05/13/24 History mcg (1,000 unit) tablet omega 7-ean-mum-fish oil 1,200 mg cap PO BID 05/13/24 05/13/24 History (144 mg-216 mg) capsule (Fish Oil) Have you fallen in the past year?: No PFSH Medical History COVID-19 ( 09/2022) MARLYS on CPAP Vitamin D deficiency Atherosclerosis of coronary artery of [place] heart without angina pectoris Primary hyperparathyroidism History [...] Chief Complaint: Primary hyperparathyroidism/rakesh ne Details: YAHAIRA MORIFN, is a 78 M who presents to the office today for follow up. Original history from 09/29: abs: Calcium levels-- .6 11.2 10.2 5,.0 9,.8 Vitamin D 30 PTH 126 eGFR [...] stents. 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 [facility] Absolute lymphocyte countOrd ered By: Elmer Gillette on 09-26-2023 Lymphocytes Auto (Unsp spec) [#/Vol] 1.36 10*3/uL 0.83-4.51 [facility] Automated lymphocyte count a s percentage of total leukocytesOrdered By: Elmer Gillette on 09-26-2023 Lymphocytes/100 WBC Auto (Unsp spec) 18.6 % 19-41 [facility] Basophil percentageOrdered B y: Elmer Gillette on 09-26-2023 Basophils/100 WBC (Bld) 0.8 % 0-1 [facility] Bilirubin [Mass/Vol] 0.70 mg/dL 0.20-1.00 [facility] Comment on above: For patients on eltr ombopag therapy, use of Dimension [place] TBIL is not recommended. Chloride [Moles/Vol] 110 mmol/L 98-107 [facility] Cholesterol [Mass/Vol] 137 mg/dL <200 [facility] Comment on above: <200 mg/dL Desirable 200-240 mg/dL Borderline >240 mg/dL High Risk Eosinophils/100 WBC (Bld) 2.7 % 0-5 [facility] Glucose [Mass/Vol] 87 mg/dL 74-106 [facility] Hemoglobin (Bld) [Mass/Vol] 15.6 g/dL 13.0-16.5 [facility] Monocytes/100 WBC (Bld) 12.6 % 0-10 [facility] Neutrophils (Bld) [#/Vol] 4.8 10*3/uL 2.0-7.7 [facility] Neutrophils/100 WBC (Bld) 64.8 % 47-70 [facility] Potassium [Moles/Vol] 4.5 mmol/L 3.5-5.1 [facility] Protein [Mass/Vol] 6.7 g/dL 6.4-8.2 [facility] Sodium [Moles/Vol] 140 mmol/L 136-145 [facility] Triglyceride [Mass/Vol] 182 mg/dL <199 [facility] Comment on above: The drugs N-Acetylcy steine and Metamizole may falsely depress this assay.Serum Triglycerides Reference Interval Normal <150 mg/dL Borderline high 150 - 199 mg/dL High 200 - 499 mg/dL Very High > or = 500 mg/dL WBC (Bld) [#/Vol] 7.3 10*3/uL 4.4-11.0 [facility] Determination of erythrocyte mean corpuscular volume (MCV)Ordered By: Elmer Gillette on 09-26-2023 MCV (RBC) [Entitic vol] 94.2 fL 80-94 [facility] Erythrocyte distribution wid th ratioOrdered By: Elmer Gillette on 09-26-2023 Erythrocyte distribution width (RBC) [Ratio] 12.6 % 11.6-14.6 [facility] Erythrocyte distribution wid th standard deviationOrdered By: Elmer Gillette on 09-26-2023 Erythrocyte distribution width (RBC) [Entitic vol] 43.4 fL 35.1-43.9 [facility] Hematocrit Auto (Bld) [Volum e fraction]Ordered By: Elmer Gillette on 09-26-2023 Hematocrit (Bld) [Volume fraction] 47.0 % 40-54 [facility] Immature granulocytes/100 WB C Auto (Bld)Ordered By: Elmer Gillette on 09-26-2023 Immature granulocytes/100 WBC (Bld) 0.500 % 0.0-0.9 [facility] Comment on above: IG% - Immature Granu locytes (promyelocytes, myelocytes and metamyelocytes) > 1% indicates that a LEFT SHIFT is Present. Laboratory - Chemistry and C hemistry - challengeOrdered By: Elmer Gillette on 09-26-2023 Albumin/Globulin [Mass ratio] 1.2 {ratio} 0.9-2.4 [facility] ALP [Catalytic activity/Vol] 60 U/L 45-117 [facility] ALT [Catalytic activity/Vol] 40 U/L 16-61 [facility] Cholesterol in HDL [Mass/Vol] 47 mg/dL >40 [facility] Comment on above: The drugs N-Acetylcy steine and Metamizole may falsely depress this assay. Reference Range HDL <40 mg/dL Low HDL Cholesterol HDL >or= 60 mg/dL High HDL Cholesterol Cholesterol in LDL [Mass/Vol] 54 mg/dL 0-130 [facility] CO2 [Moles/Vol] 28.0 mmol/L 21.0-32.0 [facility] Globulin (S) [Mass/Vol] 3.0 g/dL 2.2-4.2 [facility] Urea nitrogen/Creatinine [Mass ratio] 16.7 mg/mg 10-20 [facility] - Hematology and Cell countsOrdered By: Elmer Gillette on 09-26-2023 MCH (RBC) [Entitic mass] 31.3 pg 27.0-32.0 [facility] MCHC (RBC) [Mass/Vol] 33.2 g/dL 32-36 [facility] Nucleated RBC/100 WBC (Bld) [Ratio] 0 % 0-5 [facility] Platelet mean volume (Bld) [Entitic vol] 9.6 fL 6.2-12.0 [facility] Platelets (Bld) [#/Vol] 194 10*3/uL 150-450 [facility] No Panel InformationOrdered By: Elmer Gillette on 09-26-2023 Estimated GFR (MDRD) Amer 80 mL/min >60 [facility] Comment on above: GFR Calc Estimated GFR (MDRD) Non-Af Amer 66 mL/min >60 [facility] Comment on above: Non- GFR Calc Vitamin D 25-Hydroxy 28.5 ng/mL [facility] Comment on above: Vitamin D 25(OH) Sta tus Range Deficiency <20 ng/mL (50nmol/L) Insufficiency 20 - 30 ng/mL (50 - 75 nmol/L) Sufficiency 30 - 100 ng/mL (75 - 250 nmol/L) Toxicity >100 ng/mL (>250 nmol/L) VLDL Cholesterol 36 mg/dL 5-40 [facility] RBC Auto (Bld) [#/Vol]Ordere d By: Elmer Gillette on 09-26-2023 RBC (Bld) [#/Vol] 4.99 10*6/uL 4.6-6.[address] [facility] Serum or plasma calcium keesha urement (mass/volume)Ordered By: Elmer Gillette on 09-26-2023 Calcium [Mass/Vol] 11.2 mg/dL 8.5-10.1 [facility] Serum or plasma creatinine m easurement (mass/volume)Ordered By: Elmer Gillette 09-26-2023 Creatinine [Mass/Vol] 1.14 mg/dL 0.70-1.30 [facility] Comment on above: The validity of the calculated GFR & GFRAA in patients over 70 years has not been determined. Clinical correlation is essential. Serum or plasma thyroid stim ulating hormone (TSH) measurement (units/volume)Ordered By: Elmer Gillette on 09-26-2023 TSH Qn 2.98 uIU/mL 0.358-3.74 [facility] Serum or plasma urea nitroge n measurement (mass/volume)Ordered By: Elmer Gillette 09-26-2023 Urea nitrogen [Mass/Vol] 19 mg/dL 7-18 [facility] Thin prep Papanicolaou smear with manual screeningOrdered By: Elmer Gillette 09-26-2023 Thin prep Papanicolaou smear with manual screening 3.7 g/dL 3.2-5.0 [facility] Thin prep Papanicolaou smear with manual screening 22 U/L 15-37 [facility] Thin prep Papanicolaou smear with manual screening 2 5-15 [facility] No Panel InformationOrdered By: Jared Padilla on 09-24-2023 Miscellaneous Test See comment [facility] Comment on above: TEST RESULTS LIMITSL [...] High mg/g creat 34-196 TESTING PERFORMED AT [facility]. ORIGINAL REPORT ON FILE [...] Date: 07/02/2023 11:35:30 AM Ordering Provider: ANGELY HALL [facility] ([place]) INR in Blood by Coagulation assayon 02-09-2022 INR Coag (Bld) [Relative time] 1.0 {INR} [facility] Work Phone: Laboratory - Coagulationon 0 02-09-2022 aPTT Coag (Bld) [Time] 30.4 s 24.1-36.2 [facility] Work Phone: PT Coag (PPP) [Time] 13.2 s 11.7-14.9 [facility]: No Panel Informationon 02-09 D-Dimer Quantitative (PE/DVT) < 0.27 FEU/ug/m 0.27-0.49 [facility] Work Phone: Comment on above: NORMAL D-Dimer level (<0.50) indicates no DVT or PE. Absolute lymphocyte counton 12-10-2021 Lymphocytes Auto (Unsp spec) [#/Vol] 1.22 10*3/uL 0.83-4.51 [facility] Work Phone: Basophil percentageon 2021 Basophils/100 WBC (Bld) 0.6 % 0-1 [facility] Work Phone: Chloride [Moles/Vol] 103 mmol/L 98-107 [facility] Work Phone: Eosinophils/100 WBC (Bld) 0.8 % 0-5 [facility] Work Phone: Glucose [Mass/Vol] 106 mg/dL 74-106 [facility] Work Phone: Comment on above: Fasting Glucose resu lt from 100 to 125 mg/dL suggests IMPAIRED HOMEOSTASIS per A.D.A. criteria. Neutrophils (Bld) [#/Vol] 9.5 10*3/uL 2.0-7.7 [facility] Work Phone: Neutrophils/100 WBC (Bld) 72.8 % 47-70 [facility] Work Phone: Potassium [Moles/Vol] 4.4 mmol/L 3.5-5.1 [facility] Work Phone: Sodium [Moles/Vol] 133 mmol/L 136-145 [facility] Work Phone: WBC (Bld) [#/Vol] 13.0 10*3/uL 4.4-11.[address] [facility] Work Phone: Basophil percentage 0-5 SEEN /hpf 0-5 [facility] Work Phone: Bilirubin Test strip Ql (U)o n 12-10-2021 Bilirubin Ql (U) Negative Negative [facility] Work Phone: Blood erythrocytes count (nu mber/volume)on 12-10-2021 RBC (Bld) [#/Vol] 5.17 10*6/uL 4.6-6.[address] [facility] Work Phone: Blood hemoglobin measurement (mass/volume)on 12-10-2021 Hemoglobin (Bld) [Mass/Vol] 16.8 g/dL 13.0-16.5 [facility] Work Phone: Blood lymphocytes/100 leukoc yteson 12-10-2021 Lymphocytes/100 WBC (Bld) 9.4 % 19-41 [facility] Work Phone: Blood manual differential co mment interpretation (narrative result)on 12-10-2021 Manual differential comment Andrew (Bld) [Interp] SCANNED [facility] Work Phone: Blood monocytes/100 leukocyt eson 12-10-2021 Monocytes/100 WBC (Bld) 15.9 % 0-10 [facility] Work Phone: [phone] Blood platelet adequacy dete ction by light microscopyon 12-10-2021 Platelets LM Ql (Bld) ADEQUATE ADEQ [facility] Work Phone: [phone] Blood platelet mean volumeon 12-10-2021 Platelet mean volume (Bld) [Entitic vol] 9.1 fL 6.2-12.0 [facility] Work Phone: [phone] Determination of erythrocyte mean corpuscular volume (MCV)on 12-10-2021 MCV (RBC) [Entitic vol] 94.6 fL 80-94 [facility] Work Phone: Hematocrit Auto (Bld) [Volum e fraction]on 12-10-2021 Hematocrit (Bld) [Volume fraction] 48.9 % 40-54 [facility] Work Phone: [phone] Ketones Test strip Ql (U)on 12-10-2021 Ketones Ql (U) Negative Negative [facility] Work Phone: [phone] Laboratory - Chemistry and C hemistry - challengeon 12-10-2021 CO2 [Moles/Vol] 25.0 mmol/L 21.0-32.0 [facility] Work Phone: [phone] Urea nitrogen/Creatinine [Mass ratio] 17.8 mg/mg 10-20 [facility] Work Phone: [phone] Laboratory - Hematology and Cell countson 12-10-2021 Erythrocyte distribution width (RBC) [Entitic vol] 43.1 fL 35.1-43.9 [facility] Work Phone: [phone] Erythrocyte distribution width (RBC) [Ratio] 12.3 % 11.6-14.6 [facility] Work Phone: [phone] Immature granulocytes/100 WBC (Bld) 0.500 % 0.0-0.9 [facility] Work Phone: [phone] Comment on above: IG% - Immature Granu locytes (promyelocytes, myelocytes and metamyelocytes) > 1% indicates that a LEFT SHIFT is Present. MCH (RBC) [Entitic mass] 32.5 pg 27.0-32.0 [facility] Work Phone: [phone] Nucleated RBC/100 WBC (Bld) [Ratio] 0 % 0-5 [facility] Work Phone: [phone] MCHC Auto (RBC) [Mass/Vol]on 12-10-2021 MCHC (RBC) [Mass/Vol] 34.4 g/dL 32-36 [facility] Work Phone: [phone] Mucus LM Ql (Urine sed)on Mucus Ql (Urine sed) 0 SEEN /hpf [facility] Work Phone: [phone] Nitrite Test strip Ql (U)on 12-10-2021 Nitrite Ql (U) Negative Negative [facility] Work Phone: [phone] Panel Informationon 12-10 Estimated Creatinine Clearance Calc 43.72 ml/min [facility] Work Phone: [phone] Estimated GFR (MDRD) Amer 60 mL/min >60 [facility] Work Phone: Comment on above: GFR Calc Estimated GFR (MDRD) Non-Af Amer 50 mL/min >60 [facility] Work Phone: Comment on above: Non- GFR Calc Platelets bldon 12-10-2021 Platelets (Bld) [#/Vol] 208 10*3/uL 150-450 [facility] Work Phone: Protein Test strip Ql (U)on 12-10-2021 Protein Ql (U) 500 mg/dl Negative [facility] Work Phone: RBC morphologyon 12-10-2021 RBC morphology finding Nom (Bld) NORM C+C NORMAL NORM C&C [facility] Work Phone: Review by pathologiston Pathologist review Andrew (Unsp spec) [Interp] Colleen neno [facility] Work Phone: Pathologist review Andrew (Unsp spec) [Interp] Reviewed [facility] Work Phone: Comment on above: Previous reported re sult: Colleen neno Edited by: RGOOD on 12/12/21:1322Neutrophilic leukocytosis.Polycythemia Clinical correlation necessary.Jay Olivera M.D. 12/12/21 AMENDED REPORT 12/12/21 1322 PATH REV previously reported as: December neno Serum or plasma calcium keesha urement (mass/volume)on 12-10-2021 Calcium [Mass/Vol] 11.0 mg/dL 8.5-10.1 [facility] Work Phone: Serum or plasma creatinine m easurement (mass/volume)on 12-10-2021 Creatinine [Mass/Vol] 1.46 mg/dL 0.70-1.30 [facility] Work Phone: Comment on above: The validity of the calculated GFR & GFRAA in patients over 70 years has not been determined. Clinical correlation is essential. Serum or plasma urea nitroge n measurement (mass/volume)on 12-10-2021 Urea nitrogen [Mass/Vol] 26 mg/dL 7-18 [facility] Work Phone: Squamous epithelial cells de tection in urine sediment by light microscopyon 12-10-2021 Epithelial cells.squamous LM Ql (Urine sed) 0 SEEN /hpf 0-5 [facility] Work Phone: Thin prep Papanicolaou smear with manual screeningon 12-10-2021 Thin prep Papanicolaou smear with manual screening 5 5-15 [facility] Work Phone: Urine blood detectionon - RBC Ql (U) 250 /ul Negative [facility] Work Phone: RBC Ql (U) 50-100 SEEN /hpf 0-5 [facility] Work Phone: [phone] Urine clarityon 12-10-2021 Clarity (U) Sl. Cloudy Clear [facility] Work Phone: Urine color determinationon 12-10-2021 Color (U) Yellow Yellow [facility] Work Phone: Urine glucose detectionon Glucose Ql (U) Normal mg/dl Normal [facility] Work Phone: Urine leukocyte esterase det ection by dipstickon 12-10-2021 Leukocyte esterase Test strip Ql (U) 25 /ul Negative [facility] Work Phone: Urine pHon 12-10-2021 pH (U) 6.0 [pH] 5.0 - 8.0 [facility] Work Phone: Urine sediment bacteria coun t by microscopy (number/high power field)on 12-10-2021 Bacteria LM.HPF (Urine sed) [#/Area] Not Reportable [facility] Work Phone: Urine specific gravity measu rementon 12-10-2021 Specific gravity (U) [Rel density] 1.025 1.002-1.030 [facility] Work Phone: Urobilinogen Auto test strip Ql (U)on 12-10-2021 Urobilinogen Ql (U) Normal mg/dl Normal [facility] Work Phone: Absolute lymphocyte counton 12-01-2021 Lymphocytes Auto (Unsp spec) [#/Vol] 1.19 10*3/uL 0.83-4.51 [facility] Work Phone: Basophil percentageon 2021 Basophil percentage 0 SEEN /hpf 0-5 [facility] Work Phone: Basophils/100 WBC (Bld) 0.8 % 0-1 [facility] Work Phone: Chloride [Moles/Vol] 109 mmol/L 98-107 [facility] Work Phone: Eosinophils/100 WBC (Bld) 3.8 % 0-5 [facility] Work Phone: Glucose [Mass/Vol] 98 mg/dL 74-106 [facility] Work Phone: Neutrophils (Bld) [#/Vol] 2.6 10*3/uL 2.0-7.7 [facility] Work Phone: Neutrophils/100 WBC (Bld) 53.3 % 47-70 [facility] Work Phone: Potassium [Moles/Vol] 4.6 mmol/L 3.5-5.1 [facility] Work Phone: Sodium [Moles/Vol] 139 mmol/L 136-145 [facility] Work Phone: WBC (Bld) [#/Vol] 4.8 10*3/uL 4.4-11.0 [facility] Work Phone: Bilirubin Test strip Ql (U)o n 12-01-2021 Bilirubin Ql (U) Negative Negative [facility] Work Phone: Blood erythrocytes count (nu mber/volume)on 12-01-2021 RBC (Bld) [#/Vol] 4.74 10*6/uL 4.6-6.[address] [facility] Work Phone: Blood hemoglobin measurement (mass/volume)on 12-01-2021 Hemoglobin (Bld) [Mass/Vol] 15.3 g/dL 13.0-16.5 [facility] Work Phone: Blood lymphocytes/100 leukoc yteson 12-01-2021 Lymphocytes/100 WBC (Bld) 24.8 % 19-41 [facility] Work Phone: Blood monocytes/100 leukocyt eson 12-01-2021 Monocytes/100 WBC (Bld) 16.7 % 0-10 [facility] Work Phone: Blood platelet mean volumeon 12-01-2021 Platelet mean volume (Bld) [Entitic vol] 9.5 fL 6.2-12.0 [facility] Work Phone: Determination of erythrocyte mean corpuscular volume (MCV)on 12-01-2021 MCV (RBC) [Entitic vol] 95.8 fL 80-94 [facility] Work Phone: Hematocrit Auto (Bld) [Volum e fraction]on 12-01-2021 Hematocrit (Bld) [Volume fraction] 45.4 % 40-54 [facility] Work Phone: Ketones Test strip Ql (U)on 12-01-2021 Ketones Ql (U) Negative Negative [facility] Work Phone: Laboratory - Chemistry and C hemistry - challengeon 12-01-2021 CO2 [Moles/Vol] 25.0 mmol/L 21.0-32.0 [facility] Work Phone: Urea nitrogen/Creatinine [Mass ratio] 17.6 mg/mg 10-20 [facility] Work Phone: [phone] Laboratory - Hematology and Cell countson 12-01-2021 Erythrocyte distribution width (RBC) [Entitic vol] 45.4 fL 35.1-43.9 [facility] Work Phone: [phone] Erythrocyte distribution width (RBC) [Ratio] 12.8 % 11.6-14.6 [facility] Work Phone: Immature granulocytes/100 WBC (Bld) 0.600 % 0.0-0.9 [facility] Work Phone: Comment on above: IG% - Immature Granu locytes (promyelocytes, myelocytes and metamyelocytes) > 1% indicates that a LEFT SHIFT is Present. MCH (RBC) [Entitic mass] 32.3 pg 27.0-32.0 [facility] Work Phone: Nucleated RBC/100 WBC (Bld) [Ratio] 0 % 0-5 [facility] Work Phone: [phone] MCHC Auto (RBC) [Mass/Vol]on 12-01-2021 MCHC (RBC) [Mass/Vol] 33.7 g/dL 32-36 [facility] Work Phone: [phone] Mucus LM Ql (Urine sed)on Mucus Ql (Urine sed) 0 SEEN /hpf [facility] Work Phone: [phone] Nitrite Test strip Ql (U)on 12-01-2021 Nitrite Ql (U) Negative Negative [facility] Work Phone: No Panel Informationon 12-01 Estimated Creatinine Clearance Calc 53.64 ml/min [facility] Work Phone: Estimated GFR (MDRD) Amer 76 mL/min >60 [facility] Work Phone: Comment on above: GFR Calc Estimated GFR (MDRD) Non-Af Amer 63 mL/min >60 [facility] Work Phone: [phone] Comment on above: Non- GFR Calc Platelets bldon 12-01-2021 Platelets (Bld) [#/Vol] 181 10*3/uL 150-450 [facility] Work Phone: [phone] Protein Test strip Ql (U)on 12-01-2021 Protein Ql (U) 15 mg/dl Negative [facility] Work Phone: [phone] Serum or plasma calcium keesha urement (mass/volume)on 12-01-2021 Calcium [Mass/Vol] 10.2 mg/dL 8.5-10.1 [facility] Work Phone: Serum or plasma creatinine m easurement (mass/volume)on 12-01-2021 Creatinine [Mass/Vol] 1.19 mg/dL 0.70-1.30 [facility] Work Phone: Comment on above: The validity of the calculated GFR & GFRAA in patients over 70 years has not been determined. Clinical correlation is essential. Serum or plasma urea nitroge n measurement (mass/volume)on 12-01-2021 Urea nitrogen [Mass/Vol] 21 mg/dL 7-18 [facility] Work Phone: [phone] Squamous epithelial cells de tection in urine sediment by light microscopyon 12-01-2021 Epithelial cells.squamous LM Ql (Urine sed) 0 SEEN /hpf 0-5 [facility] Work Phone: Thin prep Papanicolaou smear with manual screeningon 12-01-2021 Thin prep Papanicolaou smear with manual screening 5 5-15 [facility] Work Phone: Urine blood detectionon 11-05 RBC Ql (U) 10 /ul Negative [facility] Work Phone: [phone] RBC Ql (U) 0-5 SEEN /hpf 0-5 [facility] Work Phone: Urine clarityon 12-01-2021 Clarity (U) Clear Clear [facility] Work Phone: Urine color determinationon 12-01-2021 Color (U) Yellow Yellow [facility] Work Phone: Urine glucose detectionon Glucose Ql (U) Normal mg/dl Normal [facility] Work Phone: [phone] Urine leukocyte esterase det ection by dipstickon 12-01-2021 Leukocyte esterase Test strip Ql (U) Negative Negative [facility] Work Phone: [phone] Urine pHon 12-01-2021 pH (U) 6.0 [pH] 5.0 - 8.0 [facility] Work Phone: [phone] Urine sediment bacteria coun t by microscopy (number/high power field)on 12-01-2021 Bacteria LM.HPF (Urine sed) [#/Area] 1 /[HPF] None Seen [facility] Work Phone: Urine specific gravity measu rementon 12-01-2021 Specific gravity (U) [Rel density] 1.020 1.002-1.030 [facility] Work Phone: Urobilinogen Auto test strip Ql (U)on 12-01-2021 Urobilinogen Ql (U) Normal mg/dl Normal [facility] Work Phone: CT FACIAL WITHOUT CONTRASTon 02-02-2018 [...] posttraumatic. Correlate with direct visual inspection. Normal [facility] ([place]) CT HEAD WITHOUT CONTRASTon 0 01-29-2018 CT [...] or softtissues.IMPRESSION :No acute intracranial abnormality. Normal [facility]) ED NOTEon 01-29-2018 [facility] NOTES Normal [facility] ([place]) [facility] NOTES Normal [facility] ([place]) ED PROVIDERon 01-29-2018 [facility] NOTES Normal [facility]) OSUHIMCACCODINGOPEDon 2017 [facility] CAC Coding OP/ED Report Normal [facility]) OSUHIMCACENCSUMon 01-29-2018 [facility] HIM CAC Encounter Summary Report Normal [facility] ([place]) Vital Signs Date Time Vital Sign Value Performing Clinician Tieshai parker 03-05-2025 08:21-0400 Diastolic blood pressure 79 mm[Hg] Dr. Elmer Gillette MD Work Phone: [facility] 03-05-2025 08:21-0400 Heart rate 70 /min Dr. Elmer Gillette MD Work Phone: [facility] 03-05-2025 08:21-0400 SaO2% (BldA) [Mass fraction] 96 % Dr. Elmer Gillette MD Work Phone: [facility] 03-05-2025 08:21-0400 Systolic blood pressure 131 mm[Hg] Dr. Elmer Gillette MD Work Phone: [facility] 03-05-2025 08:06-0400 Body height 175.[address] Elmer Gillette MD Work Phone: [facility] 03-05-2025 08:06-0400 Body mass index (BMI) [Ratio] 29.2 kg/m2 Dr. Elmer Gillette MD Work Phone: [phone] [place] [address] 03-05-2025 08:06-0400 Body weight 89.[address] Elmer Gillette MD Work Phone: [phone] [place] [address] 03-05-2025 08:06-0400 Respiratory rate 16 /min Dr. Elmer Gillette MD Work Phone: [phone] [place] [address] 11-11-2024 07:54-0400 Body height 175.[address] Elmer Gillette MD Work Phone: [phone] [address] 11-11-2024 07:54-0400 Body mass index (BMI) [Ratio] 29.4 kg/m2 Dr. Elmer Gillette MD Work Phone: [phone] [place] [address] 11-11-2024 07:54-0400 Body weight 90.[address] Elmer Gillette MD Work Phone: [phone] [place] [address] 11-11-2024 07:54-0400 Diastolic blood pressure 76 mm[Hg] Dr. Elmer Gillette MD Work Phone: [phone] [place] [address] 11-11-2024 07:54-0400 Heart rate 70 /min Dr. Elmer Gillette MD Work Phone: [facility] 11-11-2024 07:54-0400 SaO2% (BldA) [Mass fraction] 95 % Dr. Elmer Gillette MD Work Phone: [facility] 11-11-2024 07:54-0400 Systolic blood pressure 163 mm[Hg] Dr. Elmer Gillette MD Work Phone: [phone] [place] [address] 08-22-2024 15:27-0500 Body temperature 98.2 [degF] Dr. Elmer Gillette MD Work Phone: [phone] [place] [address] 08-22-2024 15:27-0500 Diastolic blood pressure 88 mm[Hg] Dr. Elmer Gillette MD Work Phone: [phone] [place] [address] 08-22-2024 15:27-0500 Heart rate 107 /min Dr. Elmer Gillette MD Work Phone: [phone])362-114307 [place] [address] 08-22-2024 15:27-0500 Respiratory rate 20 /min Dr. Elmer Gillette MD Work Phone: [phone] [place] [address] 08-22-2024 15:27-0500 SaO2% (BldA) [Mass fraction] 98 % Dr. Elmer Gillette MD Work Phone: [phone] [place] [address] 08-22-2024 15:27-0500 Systolic blood pressure 137 mm[Hg] Dr. Elmer Gillette MD Work Phone: [phone] [place] [address] 08-22-2024 06:35-0500 Body height 175.[address] Elmer Gillette MD Work Phone: [phone] [place] [address] 08-22-2024 06:35-0500 Body mass index (BMI) [Ratio] 29 kg/m2 Dr. Elmer Gillette MD Work Phone: [phone] [place] [address] 08-22-2024 06:35-0500 Body weight 89.[address] Elmer Gillette MD Work Phone: [phone] [place] [address] 08-01-2024 08:11-0500 Body mass index (BMI) [Ratio] 28.5 kg/m2 Dr. Elmer Gillette MD Work Phone: [phone])710-723107 [place] [address] 08-01-2024 08:11-0500 Body weight 87.[address] Elmer Gillette MD Work Phone: [phone] [place] [address] 08-01-2024 08:11-0500 Diastolic blood pressure 69 mm[Hg] Dr. Elmer Gillette MD Work Phone: [phone] [place] [address] 08-01-2024 08:11-0500 Respiratory rate 16 /min Dr. Elmer Gillette MD Work Phone: [facility] 08-01-2024 08:11-0500 Systolic blood pressure 162 mm[Hg] Dr. Elmer Gillette MD Work Phone: [facility] 11-14-2023 14:35-0400 Diastolic blood pressure 69 mm[Hg] [facility] 11-14-2023 14:35-0400 Heart rate 77 /min [facility] 11-14-2023 14:35-0400 Systolic blood pressure 145 mm[Hg] [facility] 11-14-2023 13:56-0400 Body height 175.26 cm [facility] 11-14-2023 13:56-0400 Body mass index (BMI) [Ratio] 28.8 kg/m2 [facility] 11-14-2023 13:56-0400 Body temperature 96 [degF] [facility] 11-14-2023 13:56-0400 Body weight 88.45 kg [facility] 11-14-2023 13:56-0400 Respiratory rate 16 /min [facility] 11-14-2023 13:56-0400 SaO2% (BldA) [Mass fraction] 98 % [facility] 09-13-2023 08:20-0500 Body height 175.26 cm [facility] 09-13-2023 08:20-0500 Body mass index (BMI) [Ratio] 29.1 kg/m2 [facility] 09-13-2023 08:20-0500 Body temperature 98.6 [degF] [facility] 09-13-2023 08:20-0500 Body weight 89.58 kg [facility] 09-13-2023 08:20-0500 Diastolic blood pressure 88 mm[Hg] [facility] 09-13-2023 08:20-0500 Heart rate 70 /min [facility] 09-13-2023 08:20-0500 Respiratory rate 16 /min [facility] 09-13-2023 08:20-0500 SaO2% (BldA) [Mass fraction] 97 % [facility] 09-13-2023 08:20-0500 Systolic blood pressure 156 mm[Hg] [facility] 02-09-2022 11:03-0400 Body height 175.26 cm [facility] Work Phone: 02-09-2022 10:55-0400 Body mass index (BMI) [Ratio] 29 kg/m2 [facility] Work Phone: 02-09-2022 10:55-0400 Body temperature 98.8 [degF] [facility] Work Phone: 02-09-2022 10:55-0400 Body weight 89.1 kg [facility] Work Phone: 02-09-2022 10:55-0400 Diastolic blood pressure 80 mm[Hg] [facility] Work Phone: 02-09-2022 10:55-0400 Heart rate 71 /min [facility] Work Phone: 02-09-2022 10:55-0400 Respiratory rate 15 /min [facility] Work Phone: 02-09-2022 10:55-0400 SaO2% (BldA) [Mass fraction] 96 % [facility] Work Phone: 02-09-2022 10:55-0400 Systolic blood pressure 151 mm[Hg] [facility] Work Phone: 12-10-2021 17:11-0400 Diastolic blood pressure 61 mm[Hg] [facility] Work Phone: 12-10-2021 17:11-0400 Heart rate 68 /min [facility] Work Phone: 12-10-2021 17:11-0400 Systolic blood pressure 128 mm[Hg] [facility] Work Phone: 12-10-2021 13:35-0400 Body height 175.26 cm [facility] Work Phone: 12-10-2021 13:35-0400 Body mass index (BMI) [Ratio] 29.5 kg/m2 [facility] Work Phone: 12-10-2021 13:35-0400 Body temperature 97.4 [degF] [facility] Work Phone: 12-10-2021 13:35-0400 Body weight 90.71 kg [facility] Work Phone: 12-10-2021 13:35-0400 Respiratory rate 16 /min [facility] Work Phone: 12-10-2021 13:35-0400 SaO2% (BldA) [Mass fraction] 99 % [facility] Work Phone: 12-06-2021 16:56-0400 Body temperature 98.1 [degF] [facility] Work Phone: 12-06-2021 16:56-0400 Diastolic blood pressure 63 mm[Hg] [facility] Work Phone: 12-06-2021 16:56-0400 Heart rate 72 /min [facility] Work Phone: 12-06-2021 16:56-0400 Respiratory rate 16 /min [facility] Work Phone: 12-06-2021 16:56-0400 SaO2% (BldA) [Mass fraction] 96 % [facility] Work Phone: 12-06-2021 16:56-0400 Systolic blood pressure 135 mm[Hg] [facility] Work Phone: 12-06-2021 14:57-0400 Body mass index (BMI) [Ratio] 29.7 kg/m2 [facility] Work Phone: 12-06-2021 14:57-0400 Body weight 91.17 kg [facility] Work Phone: 12-01-2021 02:25-0400 Diastolic blood pressure 81 mm[Hg] [facility] Work Phone: 12-01-2021 02:25-0400 Heart rate 61 /min [facility] Work Phone: 12-01-2021 02:25-0400 Respiratory rate 18 /min [facility] Work Phone: 12-01-2021 02:25-0400 SaO2% (BldA) [Mass fraction] 100 % [facility] Work Phone: 12-01-2021 02:25-0400 Systolic blood pressure 127 mm[Hg] [facility] Work Phone: 12-01-2021 00:49-0400 Body height 175.26 cm [facility] Work Phone: 12-01-2021 00:49-0400 Body mass index (BMI) [Ratio] 30.1 kg/m2 [facility] Work Phone: 12-01-2021 00:49-0400 Body temperature 97.8 [degF] [facility] Work Phone: 12-01-2021 00:49-0400 Body weight 92.5 kg [facility] Work Phone: Encounters Encounter Date Encounter Type Care Provider Facility Start: 03-31-2025 ambulatory Elmer Gillette Facility:[facility] Start: 03-05-2025 End: 03-05-2025 Patient encounter procedure Huseyin HA -[facility] Work Phone: Start: 03-05-2025 End: 03-05-[address] Elmer Gillette MD Work Phone: -[facility] Start: 02-18-2025 End: 02-18-2025 Non-patient / Non-visit Dr. Kamaljit Hendricks MD -[facility] Work Phone: Start: 02-18-2025 End: 02-18-[address] Elmer Gillette MD Work Phone: -Pulmonary Services/Neurology Start: 02-18-2025 End: 02-18-[address] Elmer Gillette MD -Pulmonary Services/Neurology Work Phone: Start: 02-18-2025 End: 02-18-2025 ambulatory Elmer Chi Melquiades Facility:[facility] Start: 02-16-2025 End: 02-16-[address] Elmer Gillette MD Work Phone: -Laboratory Phy Office 3rd Flr Start: 02-16-2025 End: 02-16-[address] Elmer Gillette MD -Laboratory Phy Office 3rd Flr Start: 02-16-2025 End: 02-16-2025 ambulatory Elmer Chi Melquiades Facility:[facility] Start: 11-11-2024 End: 11-11-[address] Jared Padilla MD -[facility] Work Phone: Start: 11-11-2024 End: 11-11-2024 ambulatory Elmer Chi Melquiades [place] Start: 11-10-2024 End: 11-10-[address] Elmer Gillette MD Work Phone: [facility] Work Phone: Start: 11-10-2024 End: 11-10-[address] Elmer Gillette MD -Ultrasound, [facility] Work Phone: Start: 11-10-2024 End: 11-10-2024 ambulatory Elmer Chi Melquiades Facility:[facility] Start: 10-03-2024 End: 10-03-[address] Elmer Gillette MD Work Phone: [facility] Work Phone: Start: 10-03-2024 End: 10-03-[address] Elmer Gillette MD -Ultrasound, [facility] Work Phone: Start: 10-03-2024 End: 10-03-2024 ambulatory Elmer Gillette Facility:[facility] Start: 09-29-2024 End: 09-29-[address] Elmer Gillette MD Work Phone: [facility] Work Phone: Start: 09-29-2024 End: 09-29-2024 Patient encounter procedure Jared Padilla MD -Laboratory Work Phone: Start: 09-29-2024 End: 09-29-2024 ambulatory Elmer Gillette Facility:[facility] Start: 09-19-2024 Encounter for other preprocedural examination Kamaljit Koehler [facility] Start: 09-15-2024 End: 09-15-[address] Kamaljit Koehler MD -Laboratory Work Phone: Start: 09-15-2024 End: 09-15-2024 ambulatory Kamaljit Koehler Facility:[facility] Start: 09-10-2024 End: 09-10-2024 Patient encounter procedure Migdalia Dunlap PA-C -Laboratory Work Phone: Start: 09-10-2024 End: 09-10-2024 ambulatory Elmer Gillette Facility:[facility] Start: 09-03-2024 End: 09-03-[address] Kamaljit Koehler MD -Laboratory Work Phone: Start: 09-03-2024 End: 09-03-[address] Kamaljit Koehler MD -[facility] Work Phone: Start: 09-03-2024 End: 09-03-2024 ambulatory Kamaljit Koehler Facility:[facility] Start: 09-03-2024 End: 09-03-2024 ambulatory Kamaljit Koehler Facility:[facility] Start: 08-22-2024 Non-patient / Non-visit Dr. Kamaljit Koehler MD -[facility] Start: 08-22-2024 End: 08-22-2024 Admission to same day surgery center Dr. Kamaljit Koehler MD -[facility] Start: 08-22-2024 End: 08-22-2024 ambulatory Kamaljit Koehler Facility:[facility] Start: 08-15-2024 End: 08-15-2024 ambulatory Elmer Chi Melquiades Facility:[facility] Start: 08-15-2024 End: 08-15-2024 Non-patient / Non-visit Dr. Kamaljit Hendricks MD -[facility] Work Phone: Start: 08-01-2024 End: 08-01-[address] Kamaljit Koehler MD -[facility] Work Phone: Start: 08-01-2024 End: 08-01-2024 ambulatory Elmer Chi Melquiades Facility:[facility] Start: 07-17-2024 End: 07-17-[address] Kamaljit Koehler MD -Nuclear Medicine, [facility] Work Phone: Start: 07-17-2024 End: 07-17-2024 ambulatory Kamaljit Koehler Facility:[facility] Start: 06-13-2024 End: 06-13-[address] Elmer Gillette MD -Laboratory, Phy Office 3rd [facility] Start: 06-13-2024 End: 06-13-2024 ambulatory Elmer Rangel Melquiades Facility:[facility] Start: 06-10-2024 End: 06-10-2024 ambulatory Kamaljit Koehler Facility:[facility] Start: 05-29-2024 End: 05-29-2024 ambulatory Elmer Chi Melquiades Facility:[facility] Start: 05-13-2024 End: 05-13-2024 ambulatory Elmer Chi Melquiades Facility:[facility] Start: 11-14-2023 End: 11-14-2023 ambulatory [facility] Work Phone: Start: 11-14-2023 End: 11-14-2023 Patient encounter procedure [facility]-Medical Out Work Phone: Start: 10-25-2023 End: 10-25-2023 ambulatory [facility] Work Phone: Start: 10-25-2023 End: 10-25-2023 Patient encounter procedure [facility]-Outpatient Bone Densitometry Work Phone: Start: 09-26-2023 End: 09-26-2023 Patient encounter procedure [facility]-Laboratory, Phy Office 3rd Flr Start: 09-24-2023 End: 09-24-2023 ambulatory [facility] Work Phone: Start: 09-24-2023 End: 09-24-2023 Patient encounter procedure [facility]-Laboratory, Specimen Work Phone: Start: 09-13-2023 End: 09-13-2023 Patient encounter procedure [facility] Work Phone: Start: 07-02-2023 End: 07-03-2023 ambulatory ANGELY HALL MD Facility:[facility] Start: 07-02-2023 End: 07-02-2023 Patient encounter procedure ANGELY HALL MD [facility] Start: 03-03-2022 Non-patient / Non-visit [facility] Start: 03-03-2022 End: 03-03-2022 Patient encounter procedure [facility]-Cardiovascular Services Start: 02-09-2022 Registered [facility] Start: 02-09-2022 End: 02-09-[address] [facility] Start: 12-10-2021 End: 12-10-2021 Emergency department patient visit [facility]-Emergency Department Start: 12-08-2021 End: 12-08-2021 Patient encounter procedure [facility]-Pulmonary Services/Neurology Start: 12-08-2021 Non-patient / Non-visit [facility] Start: 12-06-2021 End: 12-06-2021 Admission to same day surgery center [facility]Surgical Day Care Start: 12-01-2021 End: 12-01-2021 Emergency department patient visit [facility]Emergency Department Start: 01-29-2018 Emergency department patient visit H[facility]YIN RI[facility] Procedures Date Procedure Procedure Detail Performing Clinician Start: 02-16-2025 X-ray of chest, PA a nd lateral views Dr. Elmer Gillette MD Work Phone: Start: 02-16-2025 D-dimer assay, quantitative Dr. Elmer Gillette MD Work Phone: Comment on above: NORMAL D-Dimer level (<0.50) indicates no DVT or PE. Start: 02-16-2025 Urnls dip stick/tabl et reagent auto microscopy Dr. Elmer Gillette MD Work Phone: Start: 02-16-[address] Elmer klein MD Work Phone: Start: 11-10-[address] Elmer Gillette MD Work Phone: Start: 10-03-[address] Elmer Gillette MD Work Phone: Start: 07-17-2024 Single photon emissi on computed tomography of parathyroid Dr. Elmer Gillette MD Work Phone: Start: 06-13-2024 SARS-CoV-2, Influenz a & RSV (PCR) Dr. 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 on above: 3 stents to RCA 04/22 Plan of Treatment Date Care Activity Detail Author Start: 11-10-2024 Liver elastography w/o imag w/i&r LIVER ELASTOGRAPHY [facility] Start: 08-22-2024 Anes esoph thyrd larynx trach & lymph neck 1yr ANESTH NECK ORGAN 1YR/> [facility] Start: 08-22-2024 Parathyroidectomy/exploration parathyroids EXPLORE PARATHYROID GLANDS [facility] Start: 08-22-2024 Patient discharge [facility] Start: 12-06-2021 Patient discharge [facility] Work Phone: Start: 12-06-2021 End: 12-06-2021 [facility] Work Phone: Start: 12-06-2021 Ambulation without limitation [facility] Work Phone: Start: 12-06-2021 Medication education [facility] Work Phone: Start: 12-06-2021 Taking patient vital signs [facility] Work Phone: Start: 12-06-2021 Anes transurethral w/urethrocystoscopy nos ANESTH BLADDER SURGERY [facility] Work Phone: Start: 12-06-2021 Cysto w/insert ureteral stent CYSTOSCOPY AND TREATMENT [facility] Work Phone: DXA Bone [Mass/Area] Bone density [facility] Electrocardiographic procedure [facility] NM Heart Views W str ess and W radionuclide IV [facility] Patient Education ED Kidney Ston e w/ Colic [facility] Work Phone: Patient referral [facility] Work Phone: Immunizations Immunization Date Immunization Notes Care Provider Rema acosta 05-04-2014 tetanus and diphther ia toxoids, adsorbed, preservative free, for adult use (2 Lf of tetanus toxoid and 2 Lf of diphtheria toxoid) [facility] Payers Date Payer Category Payer Self-pay [id number] 2023 Medicare [id number] 2023 Unknown [id number] 2011 Medicare [id number] 1945 Unknown [id number] 2.16.8 [id number] Unknown [id number] 2.16.8 40.1.364421.3.579.2.462 Unknown [id number] 2.16.8 40.1.605919.3.579.2.462 Unknown [id number] 2.16.8 40.1.872886.3.579.2.462 Unknown [id number] 2.16.8 40.1.418160.3.579.2.462 Unknown [id number] 2.16.8 40.1.313569.3.579.2.462 Unknown [id number] 2.16.8 40.1.225008.3.579.2.462 Unknown [id number] 2.16.8 40.1.921548.3.579.2.462 Unknown [id number] 2.16.8 40.1.256345.3.579.2.462 Unknown [id number] 2.16.8 40.1.411101.3.579.2.462 Unknown [id number] 2.16.8 40.1.223055.3.579.2.462 Unknown [id number] 2.16.8 40.1.238685.3.579.2.462 Unknown [id number] 2.16.8 40.1.794507.3.579.2.462 Unknown [id number] 2.16.8 40.1.055553.3.579.2.462 Unknown [id number] 2.16.8 40.1.969415.3.579.2.462 Unknown [id number] 2.16.8 40.1.008079.3.579.2.462 Unknown [id number] 2.16.8 40.1.234845.3.579.2.462 Unknown [id number] 2.16.8 40.1.966887.3.579.2.462 Unknown [id number] 2.16.8 40.1.055194.3.579.2.462 Unknown [id number] 2.16.8 40.1.877856.3.579.2.462 Unknown [id number] 2.16.8 40.1.164091.3.579.2.462 Unknown [id number] 2.16.8 40.1.288964.3.579.2.462 Unknown [id number] 2.16.8 40.1.707455.3.579.2.462 Social History Date Type Detail Facility Start: 12-01-2021 End: 09-13-2023 Tobacco smoking status SDIS Unknown if ever smoked [facility] Start: 04-18-2015 None [facility] Start: 04-18-2015 Spouse/ Signif icant Other [facility] Start: 05-26-2020 Non-smoker [facility] Start: 1945 Sex Assigned At Male [facility] Tobacco smoking status No Smoking Status Entered [facility] Start: 08-14-2024 End: 08-14-2024 Tobacco smoking status NHIS Never smoked tobacco (finding) [facility] Start: 10-11-2024 End: 11-13-2024 Sex Male (finding) [facility] Medical Equipment Procedure Code Equipment Code Equipment Original Text Equipment Identifier Dates Parathyroidectomy DRESSING,SURGI CE L 4x8 FDA Start: 08-22-2024 Parathyroidectomy Ligation clip, metallic ()[id number] FDA Start: 08-22-2024 Parathyroidectomy Ligation clip, metallic ()[id number] FDA Start: 08-22-2024 Parathyroidectomy DRESSING,SURGI CE [...] Assessment Result Facility 08-22-2024 Cognitive function Voice/Name [facility] Work Phone: 11-14-2023 Cognitive function Awake;Alert;A ppropriate;Fol lows Commands [facility] Work Phone: 12-06-2021 Cognitive function Voice/Name [facility] Work Phone: Clinical Notes 07-02-2023 to 02-17-2025 Note Date & Type Note Facility 02-17-2025 Radiology Diagnostic study note [facility] Imaging Services [address] [address] Chest PA and Lateral MR#: [id number] Acct: [id number] Name: YAHAIRA MORFIN Rep #: [id number] : 1945 M 79 From: Torrie Metcalf MD PCP: Dr. Elmer Gillette MD Status: REG C ANISH Study:Chest PA and Lateral Date of Exam: 02/16/25 Exam# [id number] Ordering Dr: Elmer Gillette MD PROCEDURE: CHEST PA AND LATERAL 02/16/2025 REASON FOR EXAM: CHEST PAIN TECHNIQUE: CHEST PA AND LATERAL COMPARISON: No FINDINGS: Normal heart size. Well inflated lungs. No consolidation, effusion, or pneumothorax. RAD/Chest PA and Lateral IMPRESSION: No acute findings Reading Location: [place] [address] CC: Dr. Elmer Gillette MD ~ Balloon Tester: Signed [facility] 11-11-2024 Evaluation note Diagnosis Onset Date Resolution Osteoporosis chronic November 11, 2 025 7:49am Status post parathyroidectomy chronic November 11 7:49am [facility] Work Phone: 1(774) 778-278204-08-2025 Evaluation note* Diagnosis Onset Date Resolution Status Admit Date Osteoporosis chronic November 11, 2 025 7:49am Status post parathyroidectomy inacti ve November 11, 2024 7:49am Dyspnea on exertion acute March 05, 2025 7:57am History of coronary artery stent placement April 22, 2003 chronic March 05, 2025 7:57am Hyperlipidemia chronic March 05, 2025 7:57am Hypertension chronic March 05 025 7:57am [facility] Work Phone: 1(602) 749-348404-07-2025 Radiology Diagnostic study note [facility] Imaging Services [address] [place], [place] [address] Elastography Parenchyma/Organ MR#: [id number] Acct: [id number] Name: YAHAIRA MORFIN Rep #: [id number] : 1945 M 78 From: Radha Moore MD PCP: Dr. Elmer Gillette MD Status: REG C ANISH Study:Elastography Parenchyma/Organ Date of E xam: 11/10/24 Exam# [id number] Ordering Dr: Elmer Gillette MD PROCEDURE: ELASTOGRAPHY PARENCHYMA/ORGAN [facility] 11/10/2024 REASON FOR EXAM: ELEVATED LIVER ENZYMES COMPARISON: 10/03/2024 TECHNIQUE: [employer] S-shear wave elastography was performed for non-invasive [...] is vendor-neutral and intended for use in fibrosisrelated to viral etiologies and non-alcoholic fatty-liver disease (NAFLD); in causes other than viral hepatitis and NAFLD, the cutoff values are currently not well established. In some patients with NAFLD, the cutoff values for cACLD may be lower (7-9 kPa). Note also that in the setting of elevated LFTs, nonfasting or vascular congestion, the stage of lifer fibrosis may be overestimated. Previous SRU reference values: <1.37 m/s (5.7kPa): No to mild fibrosis 1.37 m/s - 2.2 m/s: Moderate to severe fibrosis >2.2 m/s (15kPa): Significant fibrosis / cirrhosis Reading Location: [id number] CC: Dr. Elmer Gillette MD ~ Balloon Tester: Signed [facility]02-28-2025 Radiology Diagnostic study note [facility] Imaging Services [address] [place] [address] Abdomen Limited MR#: [id number] Acct: [id number] Name: YAHAIRA MORFIN Rep #: [id number] : 1945 M 78 From: Sancho Ayers MD PCP: Dr. Elmer Gillette MD Status: REG [facility] Study:Abdomen Limited Date of Exam: 09/07 03/30 Exam# [id number] Ordering Dr: Elmer Gillette MD PROCEDURE: ABDOMEN [...] 5 mm x 6 mm x 3 mm.No right upper quadrant ascites. US/Abdomen Limited IMPRESSION: Solitary gallstone. Small gallbladder polyp. Fatty infiltration of the liver. Right renal cysts and nonobstructive right intrarenal calculus. Reading Location: [id number] CC: Dr. Elmer Gillette MD ~ Balloon Tester: Signed [facility]01-17-2025 [facility] Medical Records Department [address] [place] [address] History Physical Exam 08/22/24 0648 MR#: [id number] Acct: [id number] Name: YAHAIRA MORFIN Rep #: [id number] : 1945 78 From: Kamaljit Koehler MD PCP: Dr. Elmer Gillette MD Status:[facility] Location: [place] [address] History and Physical Date of Admission: 08/22/24 Date of Service: 08/01/24 MR#: [id number] Acct: [id number] Name: YAHAIRA MORFIN Rep #: [id number] : 1945 Provider: Dr. 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 ABNORMAL 99m Tc SESTAMIBI [id number] PARATHYROID IMAGING DUAL PHASE EXAMINATION. 2. 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, no muscle weakness, and no memory or concentration difficulty (more content not included)...[facility]12-27-2024 Evaluation note* Diagnosis Onset Date Resolution Status Admit Date Primary hyperparathyroidism chronic August 01, 2024 8:06am Hypoparathyroidism after procedure acute September 03 10:02am Status post parathyroidectomy acute September 03, 2024 10:02am [facility] Work Phone: 1(182) 342-201712-27-2024 Evaluation note* Diagnosis Onset Date Resolution Status Admit Date Primary hyperparathyroidism chronic August 01, 2024 8:06am Hypoparathyroidism after procedure acute September 03 10:02am Status post parathyroidectomy chroni c September 03, 2024 10:02am Osteoporosis chronic November 11, 7:49am Status post parathyroidectomy chroni c November 11, 2024 7:49am [facility] Work Phone: 1([phone]) 830-356411-27-2023 Note ORIGINAL EXAMINATION: RIGHT UPPER QUADRANT ULTRASOUND [...] Sign Date: 07/02/2023 11:35:30 AM [facility] No data available for this section [facility] Evaluation noteNo assessment information available [facility] Work Phone: Evaluation note* Diagnosis Onset Date Resolution Status History of deep vein thrombosis of lower extremity chronic [facility] Work Phone: Evaluation note* Diagnosis Onset Date Resolution Status Kidney stones chronic Primary hyperparathyroidism chronic [facility] Work Phone: Hospital Discharge instructions Additional Instructions Please follow-up with urology to discuss need for possible stent placement secondary to your kidney stone. Please return to the ER should you develop a fever over 100.4 or your pain is not controlled with outpatient [facility] Work Phone: [facility] instructionsW[facility] Work Phone: [facility] Discharge instructionsW[facility] Work Phone: [facility] Work Phone: Hospital Discharge instructions No data available for this section [facility] Progress note No data available for this section [facility] Reason for referral (narrative)No reason for referral information availableWUniversity [facility] Work Phone: Summary Purpose Family History No [...] Yes December 01, 2021 12:52am Power of Scada Technician No December 01 12:52am Advance Directive Response Recorded Date/ Time Advance Directives Yes April 12:42am Living Will No December 06, 2021 2: 57pm Power of Scada Technician No December 06, 2021 2:57pm Advance Directive Response Recorded Date/ Time Advance Directives Yes April 11:42pm Living Will No December 06, 2021 1: 57pm Power of Scada Technician No December 06, 2021 1:57pm Advance Directive Response Recorded Date/ Time Living Will Yes August 14 1:38pm Power of Scada Technician Yes August 14 025 1:38pm Name of Medical Power of Scada Technician DTR August 14, 2024 1:38pm Advance Directives Yes April 11:42pm Advance Directive Response Recorded Date/ Time Living Will Yes August 14 2:38pm Power of Scada Technician Yes August 14 025 2:38pm Name of Medical Power of Scada Technician DTR August 14, 2024 2:38pm Advance Directives Yes April 12:42am Advance Directive Response Recorded Date/ Time Living Will No December 06, 2021 2: 57pm Do you have a Healthcare Power of Scada Technician? No December 06, 2021 2:57pm Living Will Yes August 14 2:38pm Do you have a Healthcare Power of Scada Technician? Yes August 14, 2024 2:38pm Name of Medical Power of Scada Technician DTR August 14, 2024 2:38pm Advance Directives Yes April 12:42am Advance Directive Response Recorded Date/ Time Living Will No December 06, 2021 2: 57pm Do you have a Healthcare Power of Scada Technician? No December 06, 2021 2:57pm Advance Directives Yes April 12:42am Chief Complaint [...] Primary hyperparathyroidism July 8:06am Hypoparathyroidism after procedure 2024 10:02am Status post parathyroidectomy September 032024 [...] Primary hyperparathyroidism July 8:06am Hypoparathyroidism after procedure Aug 2024 10:02am Status post parathyroidectomy September 032024 10:02am Osteoporosis November 11, 2024 7:49 am Status post parathyroidectomy November 11, 2024 7:49am Chief Complaint Admit Date ELIVATED LIVER ENZYMES November 10, 2024 7 :09am 6 M FU November 11, 2024 7:49 am chest pain February 18, 2025 6:52 am Reason for Visit Admit Date Osteoporosis November 11, 2024 7:49 am Status post parathyroidectomy November 11, 2024 7:49am Chief Complaint Admit Date ELIVATED LIVER ENZYMES November 10, 2024 7 :09am 6 M FU November 11, 2024 7:49 am chest pain February 18, 2025 6:52 am chest pain February 18, 2025 7:02 am 1 Y FU March 05, 2025 7:57 am Reason for Visit Admit Date Osteoporosis November 11, 2024 7:49 am Status post parathyroidectomy November 11, 2024 7:49am Dyspnea on exertion March 05, 2025 7:57 am History of coronary artery stent placeme nt March 05, 2025 7:57am Hyperlipidemia March 05, 2025 7:57 am Hypertension March 05, 2025 7:57 am Additional Source Comments (unrecognized sect ion and content) No Status Records FoundNo Status Records FoundNo Status Records Found INFORMATION SOURCE (unrecogn ized section and content) DATE CREATED AUTHOR 02/02/2018 [facility] ([place]) DATE CREATED AUTHOR AUTHOR'S ORGANIZ ATION 07/04/2023 Counts include 234 beds at the [facility] ([place]) DATE CREATED AUTHOR AUTHOR'S ORGANIZ ATION 03/27/2025 [facility] Goals (unrecognized section and content) Goals [...] tion and content) Team Status: Active Member Role/Relationship Status Dates Dr. Elmer Gillette MD Primary Care Provider Active Team Status: Inactive Member Role/Relationship Status Dates Dr. Elmer Gillette MD Primary Care Provider Active Start: November 10, 2024 End: November 10, 2024 Dr. Elmer iGllette MD Attending Provider Active Start: November 10, 2024 End: November 10, 2024 Dr. Elmer Gillette MD Referring Provider Active Start: November 10, 2024 End: November 10, 2024 Team Status: Inactive Member Role/Relationship Status Dates Dr. Elmer Gillette MD Primary Care Provider Active Start: November 11, 2024 End: November 11, 2024 Dr. Elmer Gillette MD Referring Provider Active Start: November 11, 2024 End: November 11, 2024 Dr. Jared Padilla MD Attending Provider Active Sta rt: November 11, 2024 End: November 11, 2024 Team Status: Inactive Member Role/Relationship Status Dates Dr. Elmer Gillette MD Primary Care Provider Active Start: February 16, 2025 End: February 16, 2025 Dr. Elmer Gillette MD Attending Provider Active Start: February 16, 2025 End: February 16, 2025 Dr. Elmer Gillette MD Referring Provider Active Start: February 16, 2025 End: February 16, 2025 Team Status: Active Member Role/Relationship Status Dates Dr. Elmer Gillette MD Primary Care Provider Active Start: February 18, 2025 Dr. Elmer Gillette MD Attending Provider Active Start: February 18, 2025 Dr. Elmer Gillette MD Referring Provider Active Start: February 18, 2025 Team Status: Active Member Role Status Dates [...] Team Status: Active Member Role Status Dates [facility] Family Provider Active Dr. Elmer Gillette MD Primary Care Provider Active Team Status: Inactive Member Role Status Dates [facility] Referring Provider Active Dr. Jared Padilla [...] BE BASED ON THE PRIMARY CLINICAL RECORDS. [facility]. provides no warranty or guarantee of the accuracy or completeness of information in this document.
--- NOTE | 2025-03-31 14:26 | STRESSREP ---
Stress Test Report Pharmacologic myocardial perfusion stress test. 79-year-old man with a history of coronary artery. Resting EKG demonstrates atrial fibrillation with a rate of 65 bpm. Resting blood pressure is 128/76 mmHg. 0.4 mg of regadenoson was infused per usual protocol followed by rapid intravenous saline flush injection. Continuous EKG monitoring was performed. The maximum heart rate was 103 bpm which was 73% of max impacted heart rate the maximum workload was 1 metabolic equivalent. At rest there were no ST or T wave changes noted to suggest ischemia and at peak infusion nonspecific ST changes were noted which did not meet the criteria for ischemia. No clinical angina is noted. The final blood pressure was 126/70 mmHg. Myocardial perfusion protocol. 13.6 mCi of technetium 99m sestamibi was injected at rest. 0.4 mg of regadenoson was infused per usual protocol. At peak infusion 40.2 mCi of technetium 99m sestamibi was injected stress images were obtained stress and rest images were reconstructed and compared in the short axis vertical long and horizontal long axis. Gated images were also obtained. Perfusion SPECT analysis: Review of the stress images demonstrate normal uptake of tracer noted in all areas of the myocardium. The resting images similar demonstrated normal uptake of tracer noted in all areas of the myocardium. No areas of reversibility are noted to suggest ischemia and no previous infarct is noted. Gated SPECT analysis: The gated ejection fraction is 75%. Conclusion: Normal pharmacologic myocardial perfusion stress test. Preserved ejection fraction.
== END | disposition home or self-care (01) ==
PROVIDERS: PCP Family Medicine Geriatric Medicine; Referring Provider Nurse Practitioner Family; Visit Provider Nurse Practitioner Family
DX: R07.9 Chest pain, unspecified (principal)
CPT/HCPCS: 78452; 93017; A9500; A4216; J2785

== ENCOUNTER 2025-04-01 04:20 | Observation (INO) | payer MEDICARE, SELFPAY ==
[2025-04-01] VITALS (18 sets, daily range): BP systolic 98–144; BP diastolic 53–90; PULSE 70–125; RESP 15–22; TEMP 36.4–37.7; O2SAT 94–100; BMI 29.0; BMI 28.8
--- NOTE | 2025-04-01 04:31 | EKG12_ITS ---
Test Reason : DYSRHYTHMIA Blood Pressure : */* mmHG Vent. Rate : 114 BPM Atrial Rate : * BPM P-R Int : * ms QRS Dur : 94 ms QT Int : 446 ms P-R-T Axes : * -8 18 degrees QTcB Int : 614 ms Critical Test Result: Long QTc Sinus tachycardia Inferior infarct , age undetermined Prolonged QT Abnormal ECG Confirmed by SVETLANA ESTRADA ([id number]), newspaper editor managing ONELIA GUTIERREZ ([id number]) on 04/02/2025 1:55:00 PM Referred By: Confirmed By: SVETLANA ESTRADA
--- NOTE | 2025-04-01 04:33 | ED.VIS.GI ---
HPI HPI - GI History of Present Illness Chief Complaint: Abd Pain Informant: patient and EMS Narrative Narrative: 79-year-old male presenting with severe mid abdominal pain. He states this started yesterday while he was in the rest. Just after receiving his nuclear stress test here at the hospital. Pain has been gradually worsening all day and night and presents here at 4:30 AM because of the severe pain now. Nausea but no vomiting. Has not had a bowel movement this morning. No problems urinating. Pain does not go into his back or chest. He denies dyspnea. PFSH PFS Medical History Osteoporosis Wears hearing aid Wears dentures Wears glasses High cholesterol Non-smoker CPAP (continuous positive airway pressure) dependence Sleep apnea Cardiology follow-up encounter COVID-19 (~09/2022) MARLYS on CPAP Vitamin D deficiency Atherosclerosis of coronary artery of [place] heart without angina pectoris Primary hyperparathyroidism History of deep vein thrombosis of lower extremity Kidney stones Condyloma acuminata Hyperlipidemia Hyperparathyroidism RLS (restless legs syndrome) Sleep apnea Dog bite DVT (deep venous thrombosis) Home Medications ?Medication ?Instructions ?Recorded ?Last Taken ?Type metoprolol tartrate 25 mg tablet 25 mg PO BID ##0 04/19/15 08/21/24 Rx aspirin 81 mg tablet,delayed 81 mg PO DAILY 09/03/23 08/21/24 History release rosuvastatin 40 mg tablet 40 mg PO DAILY 09/03/23 08/21/24 History ascorbic acid (vitamin C) 500 mg 500 mg PO DAILY 12/11/23 08/21/24 History capsule amlodipine 5 mg tablet 5 mg PO DAILY 12/27/23 08/21/24 History cholecalciferol (vitamin D3) 25 50 mcg PO DAILY 05/13/24 08/21/24 History mcg (1,000 unit) tablet multivitamin (Daily Multi-Vitamin 1 tab PO DAILY 08/14/24 08/21/24 History tablet) omega-3 fatty acids 1,000 mg 1,000 mg PO BID 03/05/25 Unknown History capsule pantoprazole 40 mg tablet,delayed 40 mg PO QDAY 03/05/25 Unknown History release Allergy/AdvReac Type Severity Reaction Status Date / Time No Known Allergies Allergy Verified 04/01/25 04:27 Family History Mother Breast cancer Alzheimer disease Sister Breast cancer Myocardial infarction Father Myocardial infarction Alcohol abuse Surgical History Status post parathyroidectomy History of colonoscopy (06/02/20) History of coronary artery stent placement (04/22/03) s/p shrapnel removal S/P hernia repair Status post hemorrhoidectomy Social History Smoking Status: Never smoker alcohol intake: never substance use type: does not use caffeine: Yes Type: coffee Number of servings: 2 ROS ROS ED Constitutional Constitutional ED: Denies chills or fever(s) Eyes Eyes: Denies change in vision or diplopia ENT ENT ED: Denies rhinorrhea or sore throat Cardiovascular Cardiovascular: Denies chest pain or palpitations Respiratory/Chest Respiratory/Chest: Denies cough or dyspnea Gastrointestinal Gastrointestinal: Reports abdominal pain and nausea; Denies diarrhea or vomiting Genitourinary Genitourinary ED: Denies dysuria or hematuria Musculoskeletal Musculoskeletal: Denies back pain or neck pain Integumentary Denies abscess or rash Neurologic Neurologic: Denies headache(s), paresthesias or weakness Psychiatric Psychiatric: Denies suicidal thoughts EXAM Physical Exam Const Vital Signs: 04/01/25 04:21 04/01/25 04:23 04/01/25 04:31 Temperature 100 F H 100 F H Temperature Source Oral Oral Pulse Rate 125 H 125 H Respiratory Rate 18 19 H Blood Pressure 144/90 H 144/90 H Blood Pressure Mean 108 108 Pulse Ox 97 97 99 Oxygen Delivery Method Room Air Room Air Room Air 04/01/25 05:00 04/01/25 06:21 Temperature 100 F H 99.8 F H Temperature Source Oral Oral Pulse Rate 107 H 103 H Respiratory Rate 18 22 H Blood Pressure 116/70 103/70 Blood Pressure Mean 85 81 Pulse Ox 94 94 Oxygen Delivery Method Room Air Room Air Positive well nourished and well developed Constitutional Narrative: Uncomfortable appears to be in pain General Appearance ED: well developed and NAD HEENT Reports moist mucous membranes normocephalic and atraumatic Eyes PERRL and EOMs intact bilaterally Neck full ROM and supple Resp normal respiratory effort and clear to auscultation bilaterally Cardio regular rate, regular rhythm and no murmurs Rate: tachycardic GI GI Narrative: Distended. Diffuse abdominal tenderness without guarding or rebound. When he coughs he holds his abdomen wincing in pain. Auscultation: normoactive bowel sounds Palpation: soft and rebound tenderness present Back/Spine no CVA tenderness General Back: other FROM Extremity normal to inspection General Extremety ED: Negative for edema, pulses abnormal or tenderness General Extremity: Negative for edema or pulses abnormal Neuro oriented x3, CN's II-XII intact bilaterally and no sensory deficits noted Sensorium / Orientation: awake and alert Motor Exam: strength 5/5 throughout Psych mental status grossly normal and thought process normal Skin no rashes or lesions noted and no wounds Sepsis Attestation Sepsis Alert: Yes Sepsis Attestation: Agree w/Sepsis Date exam was performed: 04/01/25 Time exam was performed: 06:00 Possible Source of Sepsis: Pulmonary, GI tract/intra-abdominal and Genitourinary Sepsis Organ Dysfunction Criteria Present: Lactic Acid > 2 mmol/L and Serum CO2 < 20 mmol/L (on BMP) Supportive Findings: temp 100F Fluid Resuscitation Fluid resuscitation indicated?: Yes Fluid Resuscitation ordered: Lesser volume fluid bolus ordered Amount of fluid ordered: 1,000 Reason for lesser fluid bolus:: BP Responded to a lesser volume Sepsis Note Date exam was performed: 04/01/25 Time exam was performed: 06:30 Sepsis Attestation: Sepsis re-evaluation was performed (BP remains stable, HR improved; no episodes of hypotension) MDM MDM MDM Narrative Medical decision making narrative: During the initial vital sign acquisition it is noted that the patient is febrile with a temperature of 100, he is very tachycardic. His blood pressure is good and his pulse ox is 97 on room air, he is conversive in full sentences. For this reason I agree with the nurses plan to do a septic workup with blood cultures, lactic acid, and we are getting a chest x-ray stat to evaluate for both pneumonia and free air and at the diaphragm, and see no free air, he will then go to CT after we get IV fluids, morphine, Zofran going. Indeed, the 1 view chest x-ray my interpretation is normal and shows no evidence of free air under the diaphragm. Patient feeling much better after IV fluids, morphine, Zofran. I received a call from the radiologist confirming that his abdominal/pelvis CT is consistent with acute nonperforated appendicitis. I reexamined the patient. He has mildly tender McBurney's point, he has some mild rebound tenderness, but he is comfortable. He has a lactic acidosis. Discussed with surgery Dr. Romano who evaluated the patient in the ED and will have pt be admitted initially and surgery a little later this AM. Although patient is meeting criteria for sepsis, he is not in shock, his vital signs are stable and improved as above, I am comfortable with him going to medical surgical floor n.p.o. with IV fluids. Lab Data Attestation: I reviewed the patient's lab results. Labs: Laboratory Results - last 24 hr 04/01/25 04/01/25 04:30 05:34 WBC 4.2 L RBC 5.14 Hgb 16.8 H Hct 47.4 MCV 92.2 MCH 32.7 H MCHC 35.4 RDW Std Deviation 42.7 RDW Coeff of Tommie 12.6 Plt Count 164 MPV 9.3 Immature Gran % (Auto) 0.200 Neut % (Auto) 88.9 H Lymph % (Auto) 8.0 L Maries % (Auto) 0.7 Eos % (Auto) 1.7 Baso % (Auto) 0.5 Absolute Neuts (auto) 3.8 Absolute Lymphs (auto) 0.34 L Nucleated RBC % 0 PT 14.4 INR 1.1 APTT 27.0 Sodium 139 Potassium 4.1 Chloride 102 Carbon Dioxide 18.7 L Anion Gap 18 H BUN 16 Creatinine 1.32 H Estim Creat Clear Calc 50.10 Est GFR (MDRD) Non-Af 55 L BUN/Creatinine Ratio 12.1 Glucose 117 H Lactic Acid 4.2 H* Calcium 9.7 Total Bilirubin 1.10 AST 23 ALT 26 Alkaline Phosphatase 68 Troponin T High Sens 9 D Total Protein 7.0 Albumin 4.3 Globulin 2.7 Albumin/Globulin Ratio 1.6 Lipase 32 Urine Color Yellow Urine Clarity Clear Urine pH 6.5 Ur Specific [place] 1.010 Urine Protein 30 H Urine Glucose (UA) Normal Urine Ketones 5 H Urine Occult Blood Negative Urine Nitrite Negative Urine Bilirubin Negative Urine Urobilinogen Normal Ur Leukocyte Esterase Negative Urine RBC 0 SEEN Urine WBC 0 SEEN Ur Squamous Epith Cells 0 SEEN Urine Bacteria 0 SEEN Hyaline Casts 0-5 SEEN Urine Mucus 0 SEEN Radiography Diagnostic Testing: Clinical Impression(s) from Imaging Studies Abdomen/Pelvis CT 04/01/25 05:00 IMPRESSION: There is a 0.8 cm nodule in the left adrenal, Hounsfield units = 71, unchanged. Cholelithiasis. There is a 0.25 cm nonobstructing stone in the midpole of the right kidney. There is a 0.4 cm nonobstructing stone in the midpole of the left kidney. The prostate is heterogeneously enlarged, with calcifications noted. The appendix is dilated to 0.9 cm in diameter, with periappendiceal inflammation, acute appendicitis. Critical results were discussed with Dr. Crook by Dr. Montero at the time of dictation. Reading Location: [facility] Chest X-Ray 04/01/25 05:05 IMPRESSION: No acute process is identified in the chest. Reading Location: [facility] Rhythm Strip Rhythm Strip: Sinus Tach Rate: 120 Ectopy: None EKG Initial EKG: Attestation: I personally reviewed and interpreted this EKG as follows: Interpretation: No Acute Injury Pattern and Sinus Tachycardia Comments: Tachycardia, prolonged QTc, other intervals are normal, normal axis. No acute injury. Some nonspecific ST-T wave abnormalities diffusely. Management Discussion w/another healthcare provider: Manager Trading (gus romano) and Radiologist Critical Care Time Critical Care Time: Yes Critical care time (excluding procedures): 30-74 minutes (36 min), Including time spent:, Discussing w/Patient &/or Family/[employer], Discussing w/Consultants, Arranging Admission or Transfer and Performing Direct Patient Care at Bedside Discharge Plan Dx/Rx/DC Orders Clinical Impression: Acute appendicitis, Sepsis Disposition Disposition: Acute Care [facility]
[2025-04-01] MEDS: 0.9% Normal Saline (1000mL) 1,000 ML 999 ML IV (04:40)
--- OUTSIDE RECORDS SUMMARY | 2025-04-01 04:43 | XMS RPT_ITS | CCD ---
Author Organization [facility] Care Team Providers Care Bridal Stylist Sales Consultant Name Role Phone HUSEYIN RILEY [place], [place] Primary Care Provider UnavailDr. Yeni Mathew Attending Provider [phone] Dr. Obdulio Smith Referring Provider Dr. Drake Monique Attending Provider Dr. Thad Alonzo Attending Provider PHYSICIAN, NONE Primary Care Physician Unavail lore HALL MD, [facility] Attending [facility] PHYSICIAN, NONE Primary Care [facility], [place] Referring Provider Unavailable Dr. Jared Padilla Attending Provider Dr. Elmer Gillette Chi Primary Care Provider [place], [place] Referring Provider Unavailable Dr. Jared Padilla Attending Provider [phone] Dr. Elmer Gillette Chi Primary Care Provider Dr. Elmer Gillette MD, Chi Primary Care Provider [phone] Dr. Elmer Gillette MD, Chi Attending Provider Dr. Kamaljit Koehler MD Attending Provider Dr. Kamaljit Koehler MD Referring Provider Dr. Elmer Gillette MD, Chi Referring Provider Dr. Kamaljit Hendricks MD Attending Provider Wanda LAWRENCE, Dr. Mancini Referring Provider [phone] Live Muñoz MD Other Provider Dr. Kamaljit Koehler MD Other Provider [phone] Migdalia Dunlap PA-C Attending Provider Dunlap PA-C, Migdalia Referring Provider King MELINDA, Dr. Coleman Attending Provider Unavailable King MELINDA, Dr. Coleman Referring Provider Melquiades LAWRENCE, Dr. Elmer Multani Primary Care Provider [phone] Rodo LAWRENCE, Dr. Mari Attending Provider Rodo LAWRENCE, Dr. Mari Referring Provider Melquiades LAWRENCE, Dr. Elmer Multani Referring Provider Ruthie LAWRENCE, Dr. Mari Attending Provider Wanda LAWRENCE, Dr. Mancini Referring Provider Wanda LAWRENCE, Dr. Mancini Other Provider Rodo LAWRENCE, Dr. Mari Other Provider Dunlap PA-C, Migdalia Attending Provider Fabi PA-C, Migdalia Referring Provider King MELINDA, Dr. Coleman Attending Provider Unavailable King MELINDA, Dr. Coleman Referring Provider Melquiades LAWRENCE, Dr. Elmer Multani Attending Provider King MELINDA, Dr. Coleman Attending Provider Melquiades LAWRENCE, Dr. Elmer Multani Primary Care Provider [phone] Melquiades LAWRENCE, Dr. Elmer Multani Attending Provider Melquiades LAWRENCE, Dr. Elmer Multani Referring Provider Ruthie LAWRENCE, Dr. Mari Attending Provider [facility]Huseyin Romo Attending Provider Kamaljit Koehler Attending Unavailable Melquiades, Elmer Chi Primary Care Unavailable Melquiades, Elmer Chi Referring Unavailable Kamaljit Koehler Attending Unavailable Melquiades, Elmer Chi Primary Care Unavailable Melquiades, Elmer Chi Referring Unavailable Kamaljit Koehler Attending Unavailable Melquiades, Elmer Chi Primary Care Unavailable Jared Padilla Referring Unavailable Melquiades, Elmer Chi Primary Care Unavailable Melquiades, Elmer Chi Referring Unavailable Kamaljit Hendricks Attending Unavailable Kamaljit [...] Referring Unavailable Melquiades, Elmer Chi Attending Unavailable Kamaljit Hendricks Attending Unavailable Melquiades, Elmer Chi Primary Care Unavailable Live Muñoz Referring Unavailable Roof FLAT FOLDER, Huseyin H Referring Unavailable Roof FLAT FOLDER, Huseyin H Consulting Unavailable Melquiades, Elmer Chi Primary Care Unavailable William Shirley Attending Unavailable Kamaljit Koehler Attending Unavailable Kamaljit Koehler Referring Unavailable Melquiades, Elmer Chi Primary Care Unavailable Live Muñoz Consulting Unavailable Kamaljit Koehler Consulting Unavailable Melquiades, Elmer Chi Primary Care Unavailable Migdalia Dunlap Referring Unavailable Migdalia Dunlap Attending Unavailable Kamaljit Koehler Attending Unavailable Kamaljit Koehler Referring Unavailable Melquiades, Elmer Chi Primary Care Unavailable Melquiades, Elmer Chi Primary Care Unavailable Randy Jared Referring Unavailable RandyJonnyi Attending Unavailable Melquiades, Elmer Chi Attending Unavailable Melquiades, Elmer Chi Primary Care Unavailable Melquiades, Elmer Chi Primary Care Unavailable Randy Jared Referring Unavailable Jared Padilla Attending Unavailable Kamaljit Koehler Attending Unavailable Kamaljit Koehler Referring Unavailable Melquiades, Elmer Chi Primary Care Unavailable Live Muñoz Consulting Unavailable Roof FLAT FOLDER, Huseyin H Referring Unavailable Roof FLAT FOLDER, Huseyin Zuñiga Attending Unavailable Roof FLAT FOLDER, Huseyin H Consulting Unavailable Melquiades, Elmer Chi Primary Care Unavailable Melquiades, Elmer Chi Attending Unavailable Melquiades, Elmer Chi Primary Care Unavailable Melquiades, Elmer Chi Referring Unavailable Kamaljit Koehler Referring Unavailable Kamaljit Koehler Attending Unavailable Melquiades, Elmer Chi Primary Care Unavailable Melquiades, Elmer Chi Primary Care Unavailable Melquiades, Elmer Chi Referring Unavailable Randy Jared Attending Unavailable Melquiades, Elmer Chi Primary Care Unavailable Randy Jared Attending Unavailable Melquiades, Elmer Chi Referring Unavailable Roof FLAT FOLDER, Huseyin Zuñiga Attending Unavailable Melquiades, Elmer Chi Primary Care Unavailable Melquiades, Elmer Chi Referring Unavailable Medications Current Medications Medication Drug Class(es) [...] Start: 12-01-2021 take 3 tablets by mo [facility] once daily L.Acid-L.Rham-B.Breve-S.Therm (Probiotic ) 3 billion [...] {tbl} PO DAILY August 14, 2024 12:00am Aubrey-3 Fatty Acids 1,000 mg capsule (1 source) Start: 03-05-2025 take 1 capsule by mouth twice daily Aubrey-3 Fatty Acids 1,000 mg capsule Active 1000 [...] {tbl} PO Q4H as needed for Pain December 10, 2021 March 07, 2022 3:34pm Renal colic on right side Unspecified renal colic Start: 12-10-2021 End: 03-07-2022 take 1 tablet by mouth every four hours Oxycodone-Acetaminophen Discontinued 1 TABLET PO Q4H 12 2 December 10, 2021 March 07, [...] 2015 3:47pm May 20, 2020 2:29pm calcitriol 0.39810 mg oral capsule (6 sources) Vitamin D3 [...] 22, 2014 12:00am November 14, 2023 1:59pm Aubrey 9-Lfk-Exu-Fish Oil (10 sources) Start: 02-09-2022 End: 12-11-2023 Aubrey 9-Org-Irm-Fish Oil (Fish Oil) 300-1,000 mg capsule Discontinued 1 NMA PO DAILY February 09, 2022 12:00am December 11, 2023 11:47am Start: 02-09-2022 End: 12-11-2023 Aubrey 9-Dke-Erj-Fish Oil (Fi sh Oil) 300-1,000 mg capsule Discontinued 1 NMA PO DAILY February 08, 2022 11:00pm December 11, 2023 10:47am Start: 02-09-2022 take 300-1000 mg by mouth once daily Aubrey 6-Poi-Avx-Fish Oil (Fish Oil) 300-1,000 mg capsule Active 1 CAP PO DAILY February 08, 2022 11:00pm Start: 02-09-2022 take 300-1000 mg by mouth once daily Aubrey 4-Ogg-Fqf-Fish Oil (Fish Oil) 300-1,000 mg capsule Active [...] TABLET PO DAILY September 03, 2023 12:00am Aubrey 3-Ssb-Lef-Fish Oil (Fi sh Oil) 1,200 (144-216) mg capsule (6 sources) Start: 05-13-2024 End: 03-05-2025 Aubrey 4-Zah-Ugm-Fish Oil (Fi sh Oil) 1,200 (144-216) mg capsule Discontinued 1 NMA PO TWICE A DAY May 13, 2024 12:00am March 05, 2025 8:12am Start: 05-13-2024 Aubrey 3-Dha-Ep a-Fish Oil (Fish Oil) 1,200 (144-216) mg capsule Active 1 NMA PO TWICE A DAY May 13, 2024 12:00am Start: 05-13-2024 Aubrey 3-Dha-Ep a-Fish Oil (Fish Oil) 1,200 (144-216) [...] sources) Bisphosphonate Start: 11-05-2023 End: 08-14-2024 Zoledronic Fmlx-Clhpitdr-Awpnp 5 mg/100 mL piggyback Discontinued 1 NMA [...] it runs 137-140/70. Disorders of lipid metabolism (16 sources) Hyperlipidemia; Translations: [Hyperlipidemia, unspecified] Onset: 5 [...] dyspnea] 03-05-2025 Episodic Other lower respiratory disease (2 sources) Other forms of dyspnea; Translations: [Other forms [...] rechecking. Unclassified (1 source) Nasal Injury / [id number]() Onset: 8 Viral infection (13 sources) Condyloma [...] Test Name Value Interpretation Reference Range Facility Stress Reporton 03-31-2025 Stress Report [facility] [address] [place] [address] MR#: [id number] Acct: [id number] Name: YAHAIRA MORFIN Rep #: [id number] : 1945 79 From: William Shirley MD Primary Care: Dr. Elmer Gillette MD Status: REG CLI Referring Dr: Huseyin West NP FLAT FOLDER-C Sex: M C Stress Test Report Pharmacologic myocardial perfusion stress test. 79-year-old man with a history of coronary artery. Resting EKG demonstrates atrial fibrillation with a rate of 65 bpm. Resting blood pressure is 128/76 mmHg. 0.4 mg of regadenoson was infused per usual protocol followed by rapid intravenous saline flush injection. Continuous EKG monitoring was performed. The maximum heart rate was 103 bpm which was 73% of max impacted heart rate the maximum workload was 1 metabolic equivalent. At rest there were no ST or T wave changes noted to suggest ischemia and at peak infusion nonspecific ST changes were noted which did not meet the criteria for ischemia. No clinical angina is noted. The final blood pressure was 126/70 mmHg. Myocardial perfusion protocol. 13.6 mCi of technetium 99m sestamibi was injected at rest. 0.4 mg of regadenoson was infused per usual protocol. At peak infusion 40.2 mCi of technetium 99m sestamibi was injected stress images were obtained stress and rest images were reconstructed and compared in the short axis vertical long and horizontal long axis. Gated images were also obtained. Perfusion SPECT analysis: Review of the stress images demonstrate normal uptake of tracer noted in all areas of the myocardium. The resting images similar demonstrated normal uptake of tracer noted in all areas of the myocardium. No areas of reversibility are noted to suggest ischemia and no previous infarct is noted. Gated SPECT analysis: The gated ejection fraction is 75%. Conclusion: Normal pharmacologic myocardial perfusion stress test. Preserved ejection fraction. 03/31/25 1427 Date William Shirley MD CC: LELAND West; Dr. Elmer Gillette MD Date Dictated: 03/31/251425 Date Transcribed: 03/31/251425 President & Ceo: [place] Signed Normal [facility] Cardiology Visit Reporton Cardiology Visit Report [facility] [address] [place] [address] OFFICE VISIT Date of Service: 03/05/25 MR#: [id number] Acct: [id number] Name: YAHAIRA MORFIN Rep #: [id number] : 1945 Provider: LELAND shay Age/Sex: 79/M Location: [facility] Status: Signed HPI HPI History of Present Illness Details: Patient is a 79-year-old white male comes in for a routine cardiovascular outpatient appointment. He has historically been cared for in the [place] system. He had remote stenting of his [...] air Intake Visit Reasons: 1 Y [employer] Supervisor Required: No Accompanied by: Is patient in [...] D deficiency Atherosclerosis of coronary artery of [place] heart without angina pectoris Primary hyperparathyroidism History [...] rash Card (more content not included)... Normal [facility] Electrocardiogram reportOrde red By: Kamaljit Hendricks on 02-19-2025 EKG study [facility] Cardi[facility] Services [address] [place] [address] 12 Lead EKG 02/18/25 0702 MR#: [id number] Acct: [id number] Name: YAHAIRA MORFIN Rep #:[id number] : 1945 79 From: Kamaljit bird MD Attending Dr: Dr. Elmer Gillette MD Status: REG CLI Ordering Dr: Elmer Gillette MD Date: Location: N Sex: M C Admitted: Test Reason : [...] longer Present Confirmed by Kamaljit Hendricks ([id number]), material expeditor AICHA MARIE ([id number]) on 02/19/2025 8:32:50 AM Referred By: Elmer Gillette Confirmed By: Kamaljit Hendricks 02/19/25 0832 Date _ Kamaljit Hendricks MD CC: Dr. Elmer Gillette MD ~ Signed [facility] Work Phone: 12 Lead EKGon 02-18-2025 12 Lead EKG [facility] [address] [place] [address] 12 Lead EKG 02/18/25 0702 MR#: [id number] Acct: [id number] Name: YAHAIRA MORFIN Rep #: [id number] : 1945 79 From: Kamaljit Hendricks MD Attending Dr: Dr. Elmer Gillette MD Status: REG CLI Ordering Dr: Elmer Gillette MD Date: 02/18/25 Location: [facility] Sex: M C Admitted: Test Reason : [...] longer Present Confirmed by Kamaljit Hendricks ([id number]), material expeditor AICHA MARIE ([id number]) on 02/19/2025 8:32:50 AM Referred By: Elmer Gillette Confirmed By: Kamaljit Hendricks 02/19/25 0832 Date Kamaljit Hendricks MD CC: Dr. Elmer Gillette MD Signed Normal [facility] Myoglobin, Serumon 5 Myoglobin, Ser 34 ng/mL Normal [facility] Comment on above: Result Comment: Perf ormed at: - [facility] [id number] Manager Cleaning: Philipp Vanegas PhD, Phone: [phone] Performed By: #### L 509.1000 #### [facility] [address] [place], [place], [id number] Urine Cultureon 02-18-2025 URC Below infection leve l. Mixed Gram Positive Organisms [place] Count 1000-10,000 MIXC Mixed contaminants. Submit a new specimen if indicated. Normal [facility] Comment on above: Performed By: #### L 509.1000 #### [facility] [address] [place], [place], [id number] Absolute lymphocyte countOrd ered By: Elmer Melquiades on 02-16-2025 Lymphocytes Auto (Unsp spec) [#/Vol] 1.12 10*3/uL 0.83-4.51 [facility] Absolute neutrophil countOrd ered By: Elmer Gillette on 02-16-2025 Neutrophils (Bld) [#/Vol] 4.8 10*3/uL 2.0-7.7 [facility] Anion gap in Serum or Plasma Ordered By: Elmer Gillette on 02-16-2025 Anion gap [Moles/Vol] 14 mmol/L 5-15 [facility] [place] Automated lymphocyte count a s percentage of total leukocytesOrdered By: Elmer Radfordok on 02-16-2025 Lymphocytes/100 WBC Auto (Unsp spec) 16.1 % Low 19-41 [facility] BUN/creatinine ratioOrdered By: Elmer Melquiades on 02-16-2025 Urea nitrogen/Creatinine [Mass ratio] 13.0 mg/mg 10-20 [facility] Basophil percentageOrdered B y: Elmer Gillette on 02-16-2025 Basophils/100 WBC (Bld) 0.7 % 0-1 [facility] Bilirubin Test strip Ql (U)O rdered By: Elmer Gillette on 02-16-2025 Bilirubin Ql (U) Negative Negative [facility] Bilirubin, totalOrdered By: Elmer Gillette on 02-16-2025 Bilirubin [Mass/Vol] 0.45 mg/dL 0.00-1.30 [facility] CBC W/Diff, Automatedon 02-03 Absolute Lymph 1.12 X10 3/uL Normal 0.83-4.51 [facility] Comment on above: Performed By: #### L 509.1000 #### [facility] [address] [place], [address] Absolute Neut 4.8 X10 3/uL Normal 2.0-7.7 [facility] Comment on above: Performed By: #### L 509.1000 #### [facility] [address] [place], [address] Basophils/100 WBC (Bld) 0.7 % Normal 0-1 [facility] Comment on above: Performed By: #### L 509.1000 #### [facility] [address] [place], [address] Eosinophils/100 WBC (Bld) 1.2 % Normal 0-5 [facility] Comment on above: Performed By: #### L 509.1000 #### [facility] [address] [place], [address] Erythrocyte distribution width (RBC) [Ratio] 12.5 % Normal 11.6-14.6 [facility] Comment on above: Performed By: #### L 509.1000 #### [facility] [address] [place], [address] Hematocrit (Bld) [Volume fraction] 49.9 % Normal 40-54 [facility] Comment on above: Performed By: #### L 509.1000 #### [facility] [address] [place], [address] Hemoglobin (Bld) [Mass/Vol] 16.8 g/dL High 13.0-16.5 [facility] Comment on above: Performed By: #### L 509.1000 #### [facility] [address] [place], [address] IG% 0.400 Normal 0.0-0.9 [facility] Comment on above: Result Comment: IG% - Immature Granulocytes (promyelocytes, myelocytes and metamyelocytes) > 1% indicates that a LEFT SHIFT is Present. Performed By: #### L 509.1000 #### [facility] [address] [place], [address] Lymphocytes/100 WBC (Bld) 16.1 % Low 19-41 [facility] Comment on above: Performed By: #### L 509.1000 #### [facility] [address] [place], [address] MCH (RBC) [Entitic mass] 31.6 pg Normal 27.0-32.0 [facility] Comment on above: Performed By: #### L 509.1000 #### [facility] [address] [place], [address] MCHC (RBC) [Mass/Vol] 33.7 g/dL Normal 32-36 [facility] Comment on above: Performed By: #### L 509.1000 #### [facility] [address] [place], [address] MCV (RBC) [Entitic vol] 93.8 fL Normal 80-94 [facility] Comment on above: Performed By: #### L 509.1000 #### [facility] [address] [place], [address] Monocytes/100 WBC (Bld) 12.0 % High 0-10 [facility] Comment on above: Performed By: #### L 509.1000 #### [facility] [address] [place], [address] Neutrophils/100 WBC (Bld) 69.6 % Normal 47-70 [facility] Comment on above: Performed By: #### L 509.1000 #### [facility] [address] [place], [address] Nucleated RBC (Bld) [#/Vol] 0 10*3/uL Normal 0-5 [facility] Comment on above: Performed By: #### L 509.1000 #### [facility] [address] [place], [address] Platelet mean volume (Bld) [Entitic vol] 9.8 fL Normal 6.2-12.0 [facility] Comment on above: Performed By: #### L 509.1000 #### [facility] [address] [place], [address] Platelets (Bld) [#/Vol] 199 10*3/uL Normal 150-450 [facility] Comment on above: Performed By: #### L 509.1000 #### [facility] [address] [place], [address] RBC (Bld) [#/Vol] 5.32 10*6/uL Normal 4.6-6.2 [facility] Comment on above: Performed By: #### L 509.1000 #### [facility] [address] [place], [address] RDW SD 42.6 fl Normal 35.1-43.9 [facility] Comment on above: Performed By: #### L 509.1000 #### [facility] [address] [place], [address] WBC (Bld) [#/Vol] 6.9 10*3/uL Normal 4.4-11.0 [facility] Comment on above: Performed By: #### L 509.1000 #### [facility] [address] [place], [address] CPK Total, Creatine Kinaseon 02-16-2025 CPK TOTAL 97 U/L Normal 24-195 [facility] Comment on above: Performed By: #### L 509.1000 #### [facility] [address] [place], [address] Carbon dioxide, total [Moles /volume] in Central venous bloodOrdered By: Elmer Gillette on 02-16-2025 CO2 [Moles/Vol] 22.1 mmol/L 21.0-32.0 [facility] Chest PA and Lateralon 02-16 Chest PA and Lateral [facility] Imaging Services [address] [place], [place] [id number] Chest PA and Lateral MR#: [id number] Acct: [id number] Name: YAHAIRA MORFIN Rep #: [id number] : 1945 M 79 From: Christel Metcalf MD PCP: Dr. Elmer Gillette MD Status: REG CLI Study: Chest PA and Lateral Date of Exam: 02/16/25 Exam# [id number] Ordering Dr: Elmer Gillette MD PROCEDURE: CHEST PA AND LATERAL 02/16/2025 REASON FOR EXAM: CHEST PAIN TECHNIQUE: CHEST PA AND LATERAL COMPARISON: No FINDINGS: Normal heart size. Well inflated lungs. No consolidation, effusion, or pneumothorax. RAD/Chest PA and Lateral IMPRESSION: No acute findings Reading Location: [facility]- CC: Dr. Elmer Gillette MD President & Ceo: Signed [facility] Chloride assayOrdered By: Higinio Gillette on 02-16-2025 Chloride [Moles/Vol] 106 mmol/L 98-108 [facility] Comprehensive Metabolic Prof ilon 02-16-2025 Albumin [Mass/Vol] 4.5 g/dL Normal 3.4-4.8 [facility] Comment on above: Performed By: #### L 509.1000 #### [facility] [address] [place], [place], [id number] Albumin/Globulin [Mass ratio] 1.6 {ratio} Normal 0.9-2.4 [facility] Comment on above: Performed By: #### L 509.1000 #### [facility] [address] [place], [place], [id number] ALK PHOS 62 U/L Normal 40-129 [facility] Comment on above: Performed By: #### L 509.1000 #### [facility] [address] [place], [address] ALT [Catalytic activity/Vol] 32 U/L Normal <=46 [facility] Comment on above: Performed By: #### L 509.1000 #### [facility] [address] [place], [address] AST [Catalytic activity/Vol] 25 U/L Normal <=37 [facility] Comment on above: Performed By: #### L 509.1000 #### [facility] [address] [place], [address] Bilirubin [Mass/Vol] 0.45 mg/dL Normal 0.00-1.30 [facility] Comment on above: Performed By: #### L 509.1000 #### [facility] [address] [place], [address] BUN/CRE 13.0 RATIO Normal 10-20 [facility] Comment on above: Performed By: #### L 509.1000 #### [facility] [address] [place], [address] Calcium [Mass/Vol] 10.1 mg/dL Normal 7.6-11.0 [facility] Comment on above: Performed By: #### L 509.1000 #### [facility] [address] [place], [address] Chloride [Moles/Vol] 106 mmol/L Normal 98-108 [facility] Comment on above: Performed By: #### L 509.1000 #### [facility] [address] [place], [address] CO2 [Moles/Vol] 22.1 mmol/L Normal 21.0-32.0 [facility] Comment on above: Performed By: #### L 509.1000 #### [facility] [address] [place], [address] Creatinine [Mass/Vol] 1.11 mg/dL Normal 0.70-1.20 [facility] Comment on above: Performed By: #### L 509.1000 #### [facility] [address] [place], [address] GAP 14 Normal 5-15 [facility] Comment on above: Performed By: #### L 509.1000 #### [facility] [address] [place], [address] GFR/1.73 sq M.predicted among non-blacks MDRD (S/P/Bld) [Vol rate/Area] 68 mL/min/{1.73_m2} Normal >60 [facility] Comment on above: Result Comment: mL/m in/1.73m2 CKD-EPI Creatinine Equation (2020) Performed By: #### L 509.1000 #### [facility] [address] [place], [address] Globulin (S) [Mass/Vol] 2.9 g/dL Normal 2.2-4.2 [facility] Comment on above: Performed By: #### L 509.1000 #### [facility] [address] [place], [address] Glucose [Mass/Vol] 91 mg/dL Normal 70-99 [facility] Comment on above: Performed By: #### L 509.1000 #### [facility] [address] [place], [address] Potassium [Moles/Vol] 4.5 mmol/L Normal 3.3-5.1 [facility] Comment on above: Performed By: #### L 509.1000 #### [facility] [address] [place], [address] Sodium [Moles/Vol] 142 mmol/L Normal 133-145 [facility] Comment on above: Performed By: #### L 509.1000 #### [facility] [address] [place], [address] T PROT 7.4 g/dL Normal 5.9-8.4 [facility] Comment on above: Performed By: #### L 509.1000 #### [facility] [address] [place], [address] Urea nitrogen [Mass/Vol] 14 mg/dL Normal 4-19 [facility] Comment on above: Performed By: #### L 509.1000 #### [facility] [address] [place], [address] D-Dimer Quantitative (DVT/PE )on 02-16-2025 D-DIMER QUANT 0.27 FEU/ug/m Normal 0.27-0.49 [facility] Comment on above: Result Comment: NORM AL D-Dimer level (<0.50) indicates no DVT or PE. Performed By: #### L 509.1000 #### [facility] [address] [place], [address] Eosinophil percentageOrdered By: Elmer Gillette on 02-16-2025 Eosinophils/100 WBC (Bld) 1.2 % 0-5 [facility] Erythrocyte distribution wid th ratioOrdered By: Elmer Gillette on 02-16-2025 Erythrocyte distribution width (RBC) [Ratio] 12.5 % 11.6-14.6 [facility] Erythrocyte distribution wid th standard deviationOrdered By: Elmer Gileltte on 02-16-2025 Erythrocyte distribution width (RBC) [Ratio] 42.6 fl 35.1-43.9 [facility] Glomerular filtration rate ( GFR) estimation/1.73 sq m using serum, plasma, or whole bOrdered By: Elmer Gillette on 02-16-2025 GFR/1.73 sq M.predicted among non-blacks MDRD (S/P/Bld) [Vol rate/Area] 68 mL/min/{1.73_m2} >60 [facility] Comment on above: mL/min/1.73m2 CKD-EP I Creatinine Equation (2020) Hematocrit Auto (Bld) [Volum e fraction]Ordered By: Elmer Gillette on 02-16-2025 Hematocrit (Bld) [Volume fraction] 49.9 % 40-54 [facility] Hemoglobin measurementOrdere d By: Elmer Radfordok on 02-16-2025 Hemoglobin (Bld) [Mass/Vol] 16.8 g/dL High 13.0-16.5 [facility] Immature granulocytes/100 WB C Auto (Bld)Ordered By: Elmer Melquiades on 02-16-2025 Immature granulocytes/100 WBC (Bld) 0.400 % 0.0-0.9 [facility] Comment on above: IG% - Immature Granu locytes (promyelocytes, myelocytes and metamyelocytes) > 1% indicates that a LEFT SHIFT is Present. Ketones Test strip Ql (U)Ord ered By: Elmer Melquiades on 02-16-2025 Ketones Ql (U) Negative Negative [facility] L501.4021on 02-16-2025 Trop T High Sen 6 ng/L Normal <=22 [facility] Comment on above: Performed By: #### L 509.1000 #### [facility] [address] [place], [address] L503.7505on 02-16-2025 Natriuretic peptide B (Bld) [Mass/Vol] 121 pg/mL Normal <=1800 [facility] Comment on above: Result Comment: Hear t Failure Unlikely: < 300 pg/mL Heart Failure Likely < 50 Years: > 450 pg/mL 50-75 Years: > 900 pg/mL >75 Years: > 1800 pg/mL Performed By: #### L 509.1000 #### [facility] [address] [place], [address] Laboratory - Chemistry and C hemistry - challengeOrdered By: Elmer Melquiades on 02-16-2025 AST [Catalytic activity/Vol] 25 U/L <38 [facility] MCV (mean corpuscular volume ) determinationOrdered By: Elmer Gillette on 02-16-2025 MCV (RBC) [Entitic vol] 93.8 fL 80-94 [facility] Mean corpuscular hemoglobin (MCH) determinationOrdered By: Elmer Gillette 02-16-2025 MCH (RBC) [Entitic mass] 31.6 pg 27.0-32.0 [facility] Mean corpuscular hemoglobin concentration (MCHC) determinationOrdered By: Elmer Gillette on 02-16-2025 MCHC (RBC) [Mass/Vol] 33.7 g/dL 32-36 [facility] Mean platelet volume determi nationOrdered By: Elmer Gillette on 02-16-2025 Platelet mean volume (Bld) [Entitic vol] 9.8 fL 6.2-12.0 [facility] Microscopic analysis of urin e for red blood cells (RBC)Ordered By: Elmer Gillette on 02-16-2025 Microscopic analysis of urine for red blood cells (RBC) 0-5 SEEN /hpf 0-5 [facility] Monocyte percentageOrdered B y: Elmer Gillette on 02-16-2025 Monocytes/100 WBC (Bld) 12.0 % High 0-10 [facility] Mucus LM Ql (Urine sed)Order ed By: Elmer Gillette on 02-16-2025 Mucus Ql (Urine sed) 0 SEEN /hpf [facility] Natriuretic peptide.B prohor bello N-Terminal [Mass/volume] in Serum or PlasmaOrdered By: Elmer Gillette on 02-16-2025 Natriuretic peptide.B prohormone N-Terminal [Mass/Vol] 121 pg/mL <1800 [facility] Comment on above: Heart Failure Unlike ly: < 300 pg/mLHeart Failure Likely< 50 Years: > 450 pg/mL50-75 Years: > 900 pg/mL>75 Years: > 1800 pg/mL Neutrophil percentageOrdered By: Elmer Gillette on 02-16-2025 Neutrophils/100 WBC (Bld) 69.6 % 47-70 [facility] Nitrite Test strip Ql (U)Ord ered By: Elmer Gillette on 02-16-2025 Nitrite Ql (U) Negative Negative [facility] Nucleated red blood cell per centageOrdered By: Elmer Gillette on 02-16-2025 Nucleated RBC/100 WBC (Bld) [Ratio] 0 % 0-5 [facility] Platelet countOrdered By: Higinio Gillette on 02-16-2025 Platelets (Bld) [#/Vol] 199 10*3/uL 150-450 [facility] Potassium measurement (mass/ volume)Ordered By: Elmer Gillette on 02-16-2025 Potassium (Unsp spec) [Mass/Vol] 4.5 mmol/L 3.3-5.1 [facility] Protein Test strip Ql (U)Ord ered By: Elmer Gillette on 02-16-2025 Protein Ql (U) 15 mg/dl High Negative [facility] RBC Auto (Bld) [#/Vol]Ordere d By: Elmer Gillette on 02-16-2025 RBC (Bld) [#/Vol] 5.32 10*6/uL 4.6-6.2 [facility] Serum creatinine measurement (mass/volume)Ordered By: Elmer Gillette on 02-16-2025 Creatinine [Mass/Vol] 1.11 mg/dL 0.70-1.20 [facility] Serum globulin measurementOr dered By: Elmer Gillette 02-16-2025 Globulin (S) [Mass/Vol] 2.9 g/dL 2.2-4.2 [facility] Serum glucose measurement (m ass/volume)Ordered By: Elmer Gillette 02-16-2025 Glucose [Mass/Vol] 91 mg/dL 70-99 [facility] Serum myoglobin measurementO rdered By: Elmer Gillette 02-16-2025 Myoglobin [Mass/Vol] 34 ng/mL 28-72 [facility] Comment on above: Performed at: [address] [id number] Director: Philipp Vanegas PhD, Phone: [phone] Serum or plasma alanine doll otransferase (ALT) measurementOrdered By: Elmer Gillette 02-16-2025 ALT [Catalytic activity/Vol] 32 U/L <47 [facility] Serum or plasma albumin keesha urement (mass/volume)Ordered By: Elmer Gillette 02-16-2025 Albumin [Mass/Vol] 4.5 g/dL 3.4-4.8 [facility] Serum or plasma albumin/glob ulin mass ratioOrdered By: Elmer Gillette 02-16-2025 Albumin/Globulin [Mass ratio] 1.6 {ratio} 0.9-2.4 [facility] Serum or plasma alkaline marysol sphatase measurementOrdered By: Elmer Gillette 02-16-2025 ALP [Catalytic activity/Vol] 62 U/L 40-129 [facility] Serum or plasma calcium keesha urement (mass/volume)Ordered By: Elmer Gillette on 02-16-2025 Calcium [Mass/Vol] 10.1 mg/dL 7.6-11.0 [facility] Serum or plasma creatine kin ase activityOrdered By: Elmer Gillette on 02-16-2025 CK [Catalytic activity/Vol] 97 U/L 24-195 [facility] Serum or plasma urea nitroge n measurement (mass/volume)Ordered By: Elmer Gillette on 02-16-2025 Urea nitrogen [Mass/Vol] 14 mg/dL 4-19 [facility] Sodium levelOrdered By: Elmer Gillette 02-16-2025 Sodium [Moles/Vol] 142 mmol/L 133-145 [facility] Squamous epithelial cells de tection in urine sediment by light microscopyOrdered By: Elmer Gillette 02-16-2025 Epithelial cells.squamous LM Ql (Urine sed) 0 SEEN /hpf 0-5 [facility] TSH DL <= 0.005 mIU/L QnOrde red By: Elmer Gillette on 02-16-2025 TSH Qn 3.360 uIU/mL 0.300-4.200 [facility] Thyroid Stim Hormone (TSH)on 02-16-2025 TSH 3.360 uIU/mL Normal 0.300-4.200 [facility] Comment on above: Performed By: #### L 509.1000 #### [facility] [address] [place] [address]. [place], [place], [id number] Total proteinOrdered By: Elmer Gillette on 02-16-2025 Protein [Mass/Vol] 7.4 g/dL 5.9-8.4 [facility] Troponin T.cardiac [Mass/vol ume] in Serum or Plasma by High sensitivity methodOrdered By: Elmer Gillette on 02-16-2025 Troponin T.cardiac High sensitivity method [Mass/Vol] 6 ng/L <22 [facility] Urinalysis, Completeon 02-16 RBC 0-5 SEEN Normal 0-5 [facility] Comment on above: Order Comment: Urine , Random Performed By: #### L 509.1000 #### [facility] [address] [place], [address] WBC 0-5 SEEN Normal 0-5 [facility] Comment on above: Order Comment: Urine , Random Performed By: #### L 509.1000 #### [facility] [address] [place], [address] BACTERIA 0 SEEN Normal None Seen [facility] Comment on above: Order Comment: Urine , Random Performed By: #### L 509.1000 #### [facility] [address] [place], [address] EPI,SQUAMOUS 0 SEEN Normal 0-5 [facility] Comment on above: Order Comment: Urine , Random Performed By: #### L 509.1000 #### [facility] [address] [place], [address] Mucus Ql (Urine sed) 0 SEEN Normal [facility] Comment on above: Order Comment: Urine , Random Performed By: #### L 509.1000 #### [facility] [address] [place], [address] Urine clarityOrdered By: Elmer Gillette on 02-16-2025 Clarity (U) Clear Clear [facility] Urine color determinationOrd ered By: Elmer Gillette on 02-16-2025 Color (U) Yellow Yellow [facility] Urine cultureOrdered By: Elmer Gillette on 02-16-2025 Bacteria identified Cx Nom (U) Positive Abnormal [facility] Urine glucose detectionOrder ed By: Elmer Gillette on 02-16-2025 Glucose Ql (U) Normal mg/dl Normal [facility] Urine leukocyte esterase det ection by dipstickOrdered By: Elmer Gillette on 02-16-2025 Leukocyte esterase Test strip Ql (U) Negative Negative [facility] Urine pHOrdered By: Elmer Gillette on 02-16-2025 pH (U) 7.0 [pH] 5.0 - 8.0 [facility] Urine sediment bacteria coun t by microscopy (number/high power field)Ordered By: Elmer Gillette on 02-16-2025 Bacteria LM.HPF (Urine sed) [#/Area] 0 /[HPF] None Seen [facility] Urine specific gravity measu rementOrdered By: Elmer Gillette on 02-16-2025 Specific gravity (U) [Rel density] 1.010 1.002-1.030 [facility] Urine urobilinogen measureme ntOrdered By: Elmer Gillette on 02-16-2025 Urobilinogen Ql (U) Normal mg/dl Normal [facility] White blood cell (WBC) count Ordered By: Elmer Gillette on 02-16-2025 WBC (Bld) [#/Vol] 6.9 10*3/uL 4.4-11.0 [facility] White blood cell countOrdere d By: Elmer Gillette on 02-16-2025 White blood cell count 0-5 SEEN /hpf 0-5 [facility] Endocrinology Visit Reporton 11-11-2024 Endocrinology Visit Report [facility] [address] [place] [address] OFFICE VISIT Date of Service: 11/11/24 MR#: [id number] Acct: [id number] Name: YAHAIRA MORFIN Rep #: [id number] : 1945 Provider: Ness Camacho Age/Sex: 78/M Location[place] [facility] [place] Status: Signed Intake Vital Signs 05/13/24 07:55 [...] 11/11/24 History mcg (1,000 unit) tablet omega 9-xeh-utf-fish oil 1,200 mg 1 cap PO BID [...] D deficiency Atherosclerosis of coronary artery of [place] heart without angina pectoris Primary hyperparathyroidism History [...] and patie (more content not included)... Normal [facility] Elastography Parenchyma/Orga non 11-10-2024 Elastography Parenchyma/Organ [facility] [address] [place] [address] Elastography Parenchyma/Organ MR#: [id number] Acct: [id number] Name: YAHAIRA MORFIN Rep #: [id number] : 1945 M 78 From: Zeke Moore MD PCP: Dr. Elmer Gillette MD Status: REG CLI Study: Elastography Parenchyma/Organ Date of Exam: Exam# [id number] Ordering Dr: Elmer Gillette MD PROCEDURE: [facility] 11/10/2024 REASON FOR EXAM: ELEVATED LIVER ENZYMES COMPARISON: 10/03/2024 TECHNIQUE: Soci Ads S-shear wave elastography was performed for non-invasive [...] (15kPa): Significant fibrosis / cirrhosis Reading Location: [id number] CC: Dr. Elmer Gillette MD President & Ceo: Signed Normal [facility] Abdomen Limitedon 10-03-2024 Abdomen Limited [facility] [address] [place] [id number] Abdomen Limited MR#: [id number] Acct: [id number] Name: YAHAIRA MORFIN Rep #: [id number] : 1945 M 78 From: Demetri harp MD PCP: Dr. Elmer Gillette MD Status: REG CLI Study: Abdomen Limited Date of Exam: 10/03/24 Exam# [id number] Ordering Dr: Elmer Gillette MD PROCEDURE: ABDOMEN [...] [facility] CC: Dr. Elmer Gillette MD President & Ceo: Signed Normal [facility] Hepatitis Panel Acuteon 09-07 COMMENT Comment Normal . [facility] Comment on above: Order Comment: ADD T O LABS DRAWN 09/29/24 Result Comment: Not infected with HCV unless early or acute infection is suspected (which may be delayed in an immunocompromised individual), or other evidence exists to indicate HCV infection. Performed at: [facility] [address] [id number] Manager Cleaning: Philipp Vanegas PhD, Phone: [phone] Performed By: #### L 509.1000 #### [facility] [address] [place], [address] HEP B CORE,IgM Negative Normal Negative [facility] Comment on above: Order Comment: ADD T O LABS DRAWN 09/29/24 Performed By: #### L 509.1000 #### [facility] [address] [place], [address] HEP B SURF AG Negative Normal Negative [facility] Comment on above: Order Comment: ADD T O LABS DRAWN 09/29/24 Performed By: #### L 509.1000 #### [facility] [address] [place], [address] HEP C VIRUS AB Non-Reactive Normal Non Reactive [facility] Comment on above: Order Comment: ADD T O LABS DRAWN 09/29/24 Performed By: #### L 509.1000 #### [facility] [address] [place], [address] HEPATITIS A-IgM Negative Normal Negative [facility] Comment on above: Order Comment: ADD T O LABS DRAWN 09/29/24 Result Comment: A ne gative anti-HAV IgM result suggests no recent or current HAV infection. Performed By: #### L 509.1000 #### [facility] [address] [place], [address] HBV surface Ag IA QlOrdered By: Elmer Gillette on 09-30-2024 Hepatitis B Surface Antigen Negative Negative [facility] Hepatitis A virus IgM antibo dy assayOrdered By: Elmer Gillette on 09-30-2024 Hepatitis A IgM Antibody Negative Negative [facility] Comment on above: A negative anti-HAV IgM result suggests no recent orcurrent HAV infection. Hepatitis B virus core IgM a ntibody assayOrdered By: Elmer Gillette on 09-30-2024 Hepatitis B Core IgM Antibody Negative Negative [facility] Hepatitis C virus antibody a ssayOrdered By: Elmer Gillette on 09-30-2024 Hepatitis C Antibody (EIA) Non-Reactive Non Reactive [facility] No Panel InformationOrdered By: lEmer Gillette on 09-30-2024 Hepatitis C Antibody Comment Comment . [facility] Comment on above: Not infected with HC V unless early or acute infection issuspected (which may be delayed in an immunocompromisedindividual), or other evidence exists to indicate HCVinfection.Performed at: - [facility] [id number] Director: Philipp Vanegas PhD, Phone: [phone] [id number] DOrdered By: Jenifer Padilla on 09-29-2024 Vitamin D 25-Hydroxy 37.8 ng/mL [facility] Comment on above: Vitamin D 25(OH) Sta tus Range Deficiency <20 ng/mL (50nmol/L) Insufficiency 20 - 30 ng/mL (50 - 75 nmol/L) Sufficiency 30 - 100 ng/mL (75 - 250 nmol/L) Toxicity >100 ng/mL (>250 nmol/L) Absolute neutrophil countOrd ered By: Elmer Gillette on 09-29-2024 Neutrophils (Bld) [#/Vol] 4.7 10*3/uL 2.0-7.7 [facility] Albumin to globulin ratioOrd ered By: Elmer Gillette on 09-29-2024 Albumin/Globulin [Mass ratio] 1.0 {ratio} 0.9-2.4 [facility] Basic Metabolic Profile (BMP )on 09-29-2024 BUN Normal 7-18 [facility] Comment on above: Result Comment: CMP ORDERED Performed By: #### L 500.2500, L506.1000 #### [facility] [address] [place], [address] BUN/CRE Normal 10-20 [facility] Comment on above: Result Comment: CMP ORDERED Performed By: #### L 500.2500, L506.1000 #### [facility] [address] [place], [address] CA,Total Normal 8.5-10.1 [facility] Comment on above: Result Comment: CMP ORDERED Performed By: #### L 500.2500, L506.1000 #### [facility] [address] [place], [address] CL Normal 98-107 [facility] Comment on above: Result Comment: CMP ORDERED Performed By: #### L 500.2500, L506.1000 #### [facility] [address] [place], [address] CO2 Normal 21.0-32.0 [facility] Comment on above: Result Comment: CMP ORDERED Performed By: #### L 500.2500, L506.1000 #### [facility] [address] [place], [address] CREAT,SERUM Normal 0.70-1.30 [facility] Comment on above: Result Comment: CMP ORDERED Performed By: #### L 500.2500, L506.1000 #### [facility] [address] [place], [address] EST GFR Normal >60 [facility] Comment on above: Result Comment: CMP ORDERED Performed By: #### L 500.2500, L506.1000 #### [facility] [address] [place], [address] EST GFR - AA Normal >60 [facility] Comment on above: Result Comment: CMP ORDERED Performed By: #### L 500.2500, L506.1000 #### [facility] [address] [place], [address] GAP Normal 5-15 [facility] Comment on above: Result Comment: CMP ORDERED Performed By: #### L 500.2500, L506.1000 #### [facility] [address] [place], [address] GLU Normal 74-106 [facility] Comment on above: Result Comment: CMP ORDERED Performed By: #### L 500.2500, L506.1000 #### [facility] [address] [place], [address] Potassium Normal 3.5-5.1 [facility] Comment on above: Result Comment: CMP ORDERED Performed By: #### L 500.2500, L506.1000 #### [facility] [address] [place], [address] Basic Metabolic Profile (BMP) Normal 136-145 [facility] Comment on above: Result Comment: CMP ORDERED Performed By: #### L 500.2500, L506.1000 #### [facility] [address] [place], [address] Basophil percentageOrdered B y: Elmer Gillette on 09-29-2024 Basophils/100 WBC (Bld) 1.1 % High 0-1 [facility] Bilirubin, totalOrdered By: Elmer Gillette on 09-29-2024 Bilirubin [Mass/Vol] 0.50 mg/dL 0.20-1.00 [facility] Comment on above: For patients on eltr ombopag therapy, use of Dimension [place] TBIL is not recommended. Blood urea nitrogen (BUN)/cr eatinine ratioOrdered By: Elmer Gillette on 09-29-2024 Urea nitrogen/Creatinine [Mass ratio] 15.8 mg/mg 10-20 [facility] CBC W/Diff, Automatedon 09-07 Absolute Lymph 1.69 X10 3/uL Normal 0.83-4.51 [facility] Comment on above: Performed By: #### L 509.1000 #### [facility] [address] [place], [address] Absolute Neut 4.7 X10 3/uL Normal 2.0-7.7 [facility] Comment on above: Performed By: #### L 509.1000 #### [facility] [address] [place], [address] Basophils/100 WBC (Bld) 1.1 % High 0-1 [facility] Comment on above: Performed By: #### L 509.1000 #### [facility] [address] [place], [address] Eosinophils/100 WBC (Bld) 2.6 % Normal 0-5 [facility] Comment on above: Performed By: #### L 509.1000 #### [facility] [address] [place], [address] Erythrocyte distribution width (RBC) [Ratio] 12.6 % Normal 11.6-14.6 [facility] Comment on above: Performed By: #### L 509.1000 #### [facility] [address] [place], [address] Hematocrit (Bld) [Volume fraction] 45.4 % Normal 40-54 [facility] Comment on above: Performed By: #### L 509.1000 #### [facility] [address] [place], [address] Hemoglobin (Bld) [Mass/Vol] 15.2 g/dL Normal 13.0-16.5 [facility] Comment on above: Performed By: #### L 509.1000 #### [facility] [address] [place], [address] IG% 0.900 Normal 0.0-0.9 [facility] Comment on above: Result Comment: IG% - Immature Granulocytes (promyelocytes, myelocytes and metamyelocytes) > 1% indicates that a LEFT SHIFT is Present. Performed By: #### L 509.1000 #### [facility] [address] [place], [address] Lymphocytes/100 WBC (Bld) 22.3 % Normal 19-41 [facility] Comment on above: Performed By: #### L 509.1000 #### [facility] [address] [place], [address] MCH (RBC) [Entitic mass] 32.0 pg Normal 27.0-32.0 [facility] Comment on above: Performed By: #### L 509.1000 #### [facility] [address] [place], [address] MCHC (RBC) [Mass/Vol] 33.5 g/dL Normal 32-36 [facility] Comment on above: Performed By: #### L 509.1000 #### [facility] [address] [place], [address] MCV (RBC) [Entitic vol] 95.6 fL High 80-94 [facility] Comment on above: Performed By: #### L 509.1000 #### [facility] [address] [place], [address] Monocytes/100 WBC (Bld) 11.3 % High 0-10 [facility] Comment on above: Performed By: #### L 509.1000 #### [facility] [address] [place], [address] Neutrophils/100 WBC (Bld) 61.8 % Normal 47-70 [facility] Comment on above: Performed By: #### L 509.1000 #### [facility] [address] [place], [address] Nucleated RBC (Bld) [#/Vol] 0 10*3/uL Normal 0-5 [facility] Comment on above: Performed By: #### L 509.1000 #### [facility] [address] [place], [address] Platelet mean volume (Bld) [Entitic vol] 9.4 fL Normal 6.2-12.0 [facility] Comment on above: Performed By: #### L 509.1000 #### [facility] [address] [place], [address] Platelets (Bld) [#/Vol] 175 10*3/uL Normal 150-450 [facility] Comment on above: Performed By: #### L 509.1000 #### [facility] [address] [place], [address] RBC (Bld) [#/Vol] 4.75 10*6/uL Normal 4.6-6.2 [facility] Comment on above: Performed By: #### L 509.1000 #### [facility] [address] [place], [address] RDW SD 44.2 fl High 35.1-43.9 [facility] Comment on above: Performed By: #### L 509.1000 #### [facility] [address] [place], [address] WBC (Bld) [#/Vol] 7.6 10*3/uL Normal 4.4-11.0 [facility] Comment on above: Performed By: #### L 509.1000 #### [facility] [address] [place], [address] Carbon dioxide measurementOr dered By: Elmer Gillette on 09-29-2024 CO2 [Moles/Vol] 28.0 mmol/L 21.0-32.0 [facility] Chloride measurementOrdered By: Elmer Gillette on 09-29-2024 Chloride [Moles/Vol] 107 mmol/L 98-107 [facility] Comprehensive Metabolic Prof ilon 09-29-2024 Albumin [Mass/Vol] 3.5 g/dL Normal 3.2-5.0 [facility] Comment on above: Performed By: #### L 509.1000 #### [facility] [address] [place], [address] Albumin/Globulin [Mass ratio] 1.0 {ratio} Normal 0.9-2.4 [facility] Comment on above: Performed By: #### L 509.1000 #### [facility] [address] [place], [address] ALK P 62 U/L Normal 45-117 [facility] Comment on above: Performed By: #### L 509.1000 #### [facility] [address] [place], [address] ALT [Catalytic activity/Vol] 68 U/L High 16-61 [facility] Comment on above: Performed By: #### L 509.1000 #### [facility] [address] [place], [address] AST [Catalytic activity/Vol] 40 U/L High 15-37 [facility] Comment on above: Result Comment: Mode rate Hemolysis, Result may be falsely increased. Performed By: #### L 509.1000 #### [facility] [address] [place], [address] Bilirubin [Mass/Vol] 0.50 mg/dL Normal 0.20-1.00 [facility] Comment on above: Result Comment: For patients on eltrombopag therapy, use of Dimension [place] TBIL is not recommended. Performed By: #### L 509.1000 #### [facility] [address] [place], [address] BUN/CRE 15.8 RATIO Normal 10-20 [facility] Comment on above: Performed By: #### L 509.1000 #### [facility] [address] [place], [address] CA,Total 9.0 mg/dL Normal 8.5-10.1 [facility] Comment on above: Performed By: #### L 509.1000 #### [facility] [address] [place], [address] Chloride [Moles/Vol] 107 mmol/L Normal 98-107 [facility] Comment on above: Performed By: #### L 509.1000 #### [facility] [address] [place], [address] CO2 [Moles/Vol] 28.0 mmol/L Normal 21.0-32.0 [facility] Comment on above: Performed By: #### L 509.1000 #### [facility] [address] [place], [address] Creatinine [Mass/Vol] 1.39 mg/dL High 0.70-1.30 [facility] Comment on above: Result Comment: The validity of the calculated GFR GFRAA in patients over 70 years has not been determined. Clinical correlation is essential. Performed By: #### L 509.1000 #### [facility] [address] [place], [address] EST GFR - AA 63 mL/min Normal >60 [facility] Comment on above: Result Comment: Afri can [place] GFR Calc Performed By: #### L 509.1000 #### [facility] [address] [place], [address] GAP 5 Normal 5-15 [facility] Comment on above: Performed By: #### L 509.1000 #### [facility] [address] [place], [address] GFR/1.73 sq M.predicted among non-blacks MDRD (S/P/Bld) [Vol rate/Area] 52 mL/min/{1.73_m2} Low >60 [facility] Comment on above: Result Comment: Non- GFR Calc Performed By: #### L 509.1000 #### [facility] [address] [place], [address] Globulin (S) [Mass/Vol] 3.6 g/dL Normal 2.2-4.2 [facility] Comment on above: Performed By: #### L 509.1000 #### [facility] [address] [place], [address] Glucose [Mass/Vol] 99 mg/dL Normal 74-106 [facility] Comment on above: Performed By: #### L 509.1000 #### [facility] [address] [place], [address] Potassium [Moles/Vol] 4.2 mmol/L Normal 3.5-5.1 [facility] Comment on above: Result Comment: Mode rate Hemolysis, Result may be falsely increased. Performed By: #### L 509.1000 #### [facility] [address] [place], [place], [id number] Sodium [Moles/Vol] 140 mmol/L Normal 136-145 [facility] Comment on above: Performed By: #### L 509.1000 #### [facility] [address] [place], [place], [id number] T PROT 7.1 g/dL Normal 6.4-8.2 [facility] Comment on above: Performed By: #### L 509.1000 #### [facility] [address] [place], [place], [id number] Urea nitrogen [Mass/Vol] 22 mg/dL High 7-18 [facility] Comment on above: Performed By: #### L 509.1000 #### [facility] [address] [place], [place], [address] Eosinophil percentageOrdered By: Elmer Gillette on 09-29-2024 Eosinophils/100 WBC (Bld) 2.6 % 0-5 [facility] Erythrocyte distribution wid th ratioOrdered By: Elmer Gillette on 09-29-2024 Erythrocyte distribution width (RBC) [Ratio] 12.6 % 11.6-14.6 [facility] Erythrocyte distribution wid th standard deviationOrdered By: Elmer Gillette on 09-29-2024 Erythrocyte distribution width (RBC) [Entitic vol] 44.2 fL High 35.1-43.9 [facility] Estimated glomerular filtrat ion rate (GFR) AmericanOrdered By: Elmer Gillette on 09-29-2024 Estimated GFR (MDRD) Amer 63 mL/min >60 [facility] Comment on above: GFR Calc Glomerular filtration rate ( GFR) estimationOrdered By: Elmer Gillette on 09-29-2024 Estimated GFR (MDRD) Non-Af Amer 52 mL/min Low >60 [facility] Comment on above: Non- GFR Calc Glucose measurementOrdered B y: Elmer Gillette on 09-29-2024 Glucose [Mass/Vol] 99 mg/dL 74-106 [facility] Hematocrit Auto (Bld) [Volum e fraction]Ordered By: Elmer Gillette on 09-29-2024 Hematocrit (Bld) [Volume fraction] 45.4 % 40-54 [facility] Hemoglobin measurementOrdere d By: Elmer Gillette on 09-29-2024 Hemoglobin (Bld) [Mass/Vol] 15.2 g/dL 13.0-16.5 [facility] High density lipoprotein (HD L) measurementOrdered By: Elmer Gillette on 09-29-2024 Cholesterol in HDL [Mass/Vol] 46 mg/dL >40 [facility] Comment on above: The drugs N-Acetylcy steine and Metamizole may falsely depress this assay. Reference Range HDL <40 mg/dL Low HDL Cholesterol HDL >or= 60 mg/dL High HDL Cholesterol Immature granulocytes/100 WB C Auto (Bld)Ordered By: Elmer Gillette on 09-29-2024 Immature granulocytes/100 WBC (Bld) 0.900 % 0.0-0.9 [facility] Comment on above: IG% - Immature Granu locytes (promyelocytes, myelocytes and metamyelocytes) > 1% indicates that a LEFT SHIFT is Present. Laboratory - Chemistry and C hemistry - challengeOrdered By: Elmer Gillette on 09-29-2024 AST [Catalytic activity/Vol] 40 U/L High 15-37 [facility] Comment on above: Moderate Hemolysis, Result may be falsely increased. Lipid Profileon 09-29-2024 Cholesterol [Mass/Vol] 147 mg/dL Normal 200 [facility] Comment on above: Result Comment: <200 mg/dL Desirable 200-240 mg/dL Borderline >240 mg/dL High Risk Performed By: #### L 509.1000 #### [facility] [address] [place], [address] Cholesterol in HDL [Mass/Vol] 46 mg/dL Normal [facility] Comment on above: Result Comment: The drugs N-Acetylcysteine and Metamizole may falsely depress this assay. Reference Range HDL <40 mg/dL Low HDL Cholesterol HDL >or= 60 mg/dL High HDL Cholesterol Performed By: #### L 509.1000 #### [facility] [address] [place], [place], [address] (767) Cholesterol in LDL [Mass/Vol] 49 mg/dL Normal 0-130 [facility] Comment on above: Performed By: #### L 509.1000 #### [facility] [address] [place], [place], [address] (934) Cholesterol in VLDL [Mass/Vol] 52 mg/dL High 5-40 [facility] Comment on above: Performed By: #### L 509.1000 #### [facility] [address] [place], [address] Triglyceride [Mass/Vol] 260 mg/dL High [facility] Comment on above: Result Comment: The drugs N-Acetylcysteine and Metamizole may falsely depress this assay. Serum Triglycerides Reference Interval Normal <150 mg/dL Borderline high 150 - 199 mg/dL High 200 - 499 mg/dL Very High > or = 500 mg/dL Performed By: #### L 509.1000 #### [facility] [address] [place], [place], [address] (383) Low density lipoprotein (LDL ) cholesterol measurementOrdered By: Elmer Gillette on 09-29-2024 Cholesterol in LDL [Mass/Vol] 49 mg/dL 0-130 [facility] Lymphocytes Auto (Unsp spec) [#/Vol]Ordered By: Elmer Gillette on 09-29-2024 Lymphocytes (Bld) [#/Vol] 1.69 10*3/uL 0.83-4.51 [facility] Lymphocytes/100 WBC Auto (Un sp spec)Ordered By: Elmer Gillette on 09-29-2024 Lymphocytes/100 WBC (Bld) 22.3 % 19-41 [facility] MCV (mean corpuscular volume ) determinationOrdered By: Elmer Gillette on 09-29-2024 MCV (RBC) [Entitic vol] 95.6 fL High 80-94 [facility] Mean corpuscular hemoglobin (MCH) determinationOrdered By: Elmer Gillette on 09-29-2024 MCH (RBC) [Entitic mass] 32.0 pg 27.0-32.0 [facility] Mean corpuscular hemoglobin concentration (MCHC) determinationOrdered By: Elmer Gillette on 09-29-2024 MCHC (RBC) [Mass/Vol] 33.5 g/dL 32-36 [facility] Mean platelet volume determi nationOrdered By: Elmer Gillette on 09-29-2024 Platelet mean volume (Bld) [Entitic vol] 9.4 fL 6.2-12.0 [facility] Monocyte percentageOrdered B y: Elmer Gillette on 09-29-2024 Monocytes/100 WBC (Bld) 11.3 % High 0-10 [facility] Neutrophil percentageOrdered By: Elmer Gillette on 09-29-2024 Neutrophils/100 WBC (Bld) 61.8 % 47-70 [facility] Nucleated red blood cell per centageOrdered By: Elmer Gillette on 09-29-2024 Nucleated RBC/100 WBC (Bld) [Ratio] 0 % 0-5 [facility] Platelet countOrdered By: Higinio Gillette on 09-29-2024 Platelets (Bld) [#/Vol] 175 10*3/uL 150-450 [facility] Potassium measurementOrdered By: Elmer Gillette on 09-29-2024 Potassium [Moles/Vol] 4.2 mmol/L 3.5-5.1 [facility] Comment on above: Moderate Hemolysis, Result may be falsely increased. RBC Auto (Bld) [#/Vol]Ordere d By: Elmer Gillette on 09-29-2024 RBC (Bld) [#/Vol] 4.75 10*6/uL 4.6-6.2 [facility] Serum anion gap measurementO rdered By: Elmer Gillette on 09-29-2024 Anion gap [Moles/Vol] 5 mmol/L 5-15 [facility] Serum globulin measurementOr dered By: Elmer Gillette 09-29-2024 Globulin (S) [Mass/Vol] 3.6 g/dL 2.2-4.2 [facility] Serum or plasma alanine doll otransferase (ALT) measurementOrdered By: Elmer Gillette 09-29-2024 ALT [Catalytic activity/Vol] 68 U/L High 16-61 [facility] Serum or plasma albumin keesha urement (mass/volume)Ordered By: Elmer Gillette on 09-29-2024 Albumin [Mass/Vol] 3.5 g/dL 3.2-5.0 [facility] Serum or plasma alkaline marysol sphatase measurementOrdered By: Elmer Gillette on 09-29-2024 ALP [Catalytic activity/Vol] 62 U/L 45-117 [facility] Serum or plasma calcium keesha urement (mass/volume)Ordered By: Elmer Gillette on 09-29-2024 Calcium [Mass/Vol] 9.0 mg/dL 8.5-10.1 [facility] Serum or plasma cholesterol measurement (mass/volume)Ordered By: Elmer Gillette on 09-29-2024 Cholesterol [Mass/Vol] 147 mg/dL <200 [facility] Comment on above: <200 mg/dL Desirable 200-240 mg/dL Borderline >240 mg/dL High Risk Serum or plasma creatinine m easurement (mass/volume)Ordered By: Elmer Gillette 09-29-2024 Creatinine [Mass/Vol] 1.39 mg/dL High 0.70-1.30 [facility] Comment on above: The validity of the calculated GFR & GFRAA in patients over 70 years has not been determined. Clinical correlation is essential. Serum or plasma urea nitroge n measurement (mass/volume)Ordered By: Elmer Gillette on 09-29-2024 Urea nitrogen [Mass/Vol] 22 mg/dL High 7-18 [facility] Sodium levelOrdered By: Elmer Gillette 09-29-2024 Sodium [Moles/Vol] 140 mmol/L 136-145 [facility] TSH QnOrdered By: Elmer Gillette o n 09-29-2024 Thyroid Stimulating Hormone (TSH) 2.460 uIU/mL 0.358-3.740 [facility] Thyroid Stim Hormone (TSH)on 09-29-2024 TSH 2.460 uIU/mL Normal 0.358-3.740 [facility] Comment on above: Performed By: #### L 509.1000 #### [facility] [address] [place], [address] Total proteinOrdered By: Elmer Gillette on 09-29-2024 Protein [Mass/Vol] 7.1 g/dL 6.4-8.2 [facility] Triglycerides measurementOrd ered By: Elmer Gillette on 09-29-2024 Triglyceride [Mass/Vol] 260 mg/dL High <199 [facility] Comment on above: The drugs N-Acetylcy steine and Metamizole may falsely depress this assay.Serum Triglycerides Reference Interval Normal <150 mg/dL Borderline high 150 - 199 mg/dL High 200 - 499 mg/dL Very High > or = 500 mg/dL Very low density lipoprotein (VLDL) cholesterol measurementOrdered By: Elmer Gillette on 09-29-2024 VLDL Cholesterol 52 mg/dL High 5-40 [facility] Vitamin D,25 Hydroxyon 09-29 Vitamin D 25-OH 37.8 ng/mL Normal [facility] Comment on above: Order Comment: SUJEY [...] Performed By: #### L 500.2500, L506.1000 #### [facility] [address] [place] [address], [address] White blood cell (WBC) count Ordered By: Elmer Gillette on 09-29-2024 WBC (Bld) [#/Vol] 7.6 10*3/uL 4.4-11.0 [facility] 87-AC-Cwzzmbq DOrdered By: Jenifer Padilla on 09-15-2024 Vitamin D 25-Hydroxy 28.8 ng/mL [facility] Comment on above: Vitamin D 25(OH) Sta tus Range Deficiency <20 ng/mL (50nmol/L) Insufficiency 20 - 30 ng/mL (50 - 75 nmol/L) Sufficiency 30 - 100 ng/mL (75 - 250 nmol/L) Toxicity >100 ng/mL (>250 nmol/L) Albumin to globulin ratioOrd ered By: Jared Padilla on 09-15-2024 Albumin/Globulin [Mass ratio] 1.1 {ratio} 0.9-2.4 [facility] Bilirubin, totalOrdered By: Jared Padilla on 09-15-2024 Bilirubin [Mass/Vol] 0.40 mg/dL 0.20-1.00 [facility] Comment on above: For patients on eltr ombopag therapy, use of Dimension [place] TBIL is not recommended. Blood urea nitrogen (BUN)/cr eatinine ratioOrdered By: Jared Padilla on 09-15-2024 Urea nitrogen/Creatinine [Mass ratio] 13.7 mg/mg 10 [facility] Carbon dioxide measurementOr dered By: Jared Padilla on 09-15-2024 CO2 [Moles/Vol] 28.0 mmol/L 21.0-32.0 [facility] Chloride measurementOrdered By: Jared Padilla on 09-15-2024 Chloride [Moles/Vol] 110 mmol/L High 98-107 [facility] Comprehensive Metabolic Prof ilon 09-15-2024 Albumin [Mass/Vol] 3.6 g/dL Normal 3.2-5.0 [facility] Comment on above: Performed By: #### L 509.1000 #### [facility] [address] [place], [address] Albumin/Globulin [Mass ratio] 1.1 {ratio} Normal 0.9-2.4 [facility] Comment on above: Performed By: #### L 509.1000 #### [facility] [address] [place], [address] ALK P 54 U/L Normal 45-117 [facility] Comment on above: Performed By: #### L 509.1000 #### [facility] [address] [place], [address] ALT [Catalytic activity/Vol] 46 U/L Normal 16-61 [facility] Comment on above: Performed By: #### L 509.1000 #### [facility] [address] [place], [address] AST [Catalytic activity/Vol] 22 U/L Normal 15-37 [facility] Comment on above: Performed By: #### L 509.1000 #### [facility] [address] [place], [address] Bilirubin [Mass/Vol] 0.40 mg/dL Normal 0.20-1.00 [facility] Comment on above: Result Comment: For patients on eltrombopag therapy, use of Dimension [place] TBIL is not recommended. Performed By: #### L 509.1000 #### [facility] [address] [place], [address] BUN/CRE 13.7 RATIO Normal 10-20 [facility] Comment on above: Performed By: #### L 509.1000 #### [facility] [address] [place], [address] CA,Total 9.1 mg/dL Normal 8.5-10.1 [facility] Comment on above: Performed By: #### L 509.1000 #### [facility] [address] [place], [address] Chloride [Moles/Vol] 110 mmol/L High 98-107 [facility] Comment on above: Performed By: #### L 509.1000 #### [facility] [address] [place], [address] CO2 [Moles/Vol] 28.0 mmol/L Normal 21.0-32.0 [facility] Comment on above: Performed By: #### L 509.1000 #### [facility] [address] [place], [address] Creatinine [Mass/Vol] 1.17 mg/dL Normal 0.70-1.30 [facility] Comment on above: Result Comment: The validity of the calculated GFR GFRAA in patients over 70 years has not been determined. Clinical correlation is essential. Performed By: #### L 509.1000 #### [facility] [address] [place], [address] EST GFR - AA 77 mL/min Normal >60 [facility] Comment on above: Result Comment: Afri can Austrian GFR Calc Performed By: #### L 509.1000 #### [facility] [address] [place], [address] GAP 4 Low 5-15 [facility] Comment on above: Performed By: #### L 509.1000 #### [facility] [address] [place], [address] GFR/1.73 sq M.predicted among non-blacks MDRD (S/P/Bld) [Vol rate/Area] 64 mL/min/{1.73_m2} Normal >60 [facility] Comment on above: Result Comment: Non- GFR Calc Performed By: #### L 509.1000 #### [facility] [address] [place], [address] Globulin (S) [Mass/Vol] 3.2 g/dL Normal 2.2-4.2 [facility] Comment on above: Performed By: #### L 509.1000 #### [facility] [address] [place], [address] Glucose [Mass/Vol] 88 mg/dL Normal 74-106 [facility] Comment on above: Performed By: #### L 509.1000 #### [facility] [address] [place], [address] Potassium [Moles/Vol] 3.8 mmol/L Normal 3.5-5.1 [facility] Comment on above: Performed By: #### L 509.1000 #### [facility] [address] [place], [address] Sodium [Moles/Vol] 141 mmol/L Normal 136-145 [facility] Comment on above: Performed By: #### L 509.1000 #### [facility] [address] [place], [address] T PROT 6.8 g/dL Normal 6.4-8.2 [facility] Comment on above: Performed By: #### L 509.1000 #### [facility] [address] [place], [address] Urea nitrogen [Mass/Vol] 16 mg/dL Normal 7-18 [facility] Comment on above: Performed By: #### L 509.1000 #### [facility] [address] [place], [address] Estimated glomerular filtrat ion rate (GFR) AmericanOrdered By: Jared Padilla on 09-15-2024 Estimated GFR (MDRD) Amer 77 mL/min >60 [facility] Comment on above: GFR Calc Glomerular filtration rate ( GFR) estimationOrdered By: Jared Padilla on 09-15-2024 Estimated GFR (MDRD) Non-Af Amer 64 mL/min >60 [facility] Comment on above: Non- GFR Calc Glucose measurementOrdered B y: Jared Padilla on 09-15-2024 Glucose [Mass/Vol] 88 mg/dL 74-106 [facility] Intact parathyroid hormone ( iPTH) measurementOrdered By: Jared Padilla on 09-15-2024 Parathyroid Hormone (Intact) 30.1 pg/mL 18.4-80.1 [facility] L501.0895on 09-15-2024 Calcium [Mass/Vol] 9.2 mg/dL Normal 8.5-10.1 [facility] Comment on above: Performed By: #### L 501.5200, L501.0895 #### [facility] [address] [place], [address] Laboratory - Chemistry and C hemistry - challengeOrdered By: Jared Padilla on 09-15-2024 AST [Catalytic activity/Vol] 22 U/L 15-37 [facility] Magnesiumon 09-15-2024 Magnesium [Mass/Vol] 2.4 mg/dL Normal 1.6-2.6 [facility] Comment on above: Performed By: #### L 501.5200, L501.0895 #### [facility] [address] [facility] [place], [place], [address] Magnesium measurementOrdered By: Migdalia Dunlap on 09-15-2024 Magnesium [Mass/Vol] 2.4 mg/dL 1.6-2.6 [facility] PTHINon 09-15-2024 PTH 30.1 pg/mL Normal 18.4-80.1 [facility] Comment on above: Performed By: #### L 509.1000 #### [facility] [address] [facility] [place], [place], [address] Potassium measurementOrdered By: Jared Padilla on 09-15-2024 Potassium [Moles/Vol] 3.8 mmol/L 3.5-5.1 [facility] Serum anion gap measurementO rdered By: Jared Padilla on 09-15-2024 Anion gap [Moles/Vol] 4 mmol/L Low 5-15 [facility] Serum globulin measurementOr dered By: Jared Padilla on 09-15-2024 Globulin (S) [Mass/Vol] 3.2 g/dL 2.2-4.2 [facility] Serum or plasma alanine doll otransferase (ALT) measurementOrdered By: Jared Padilla on 09-15-2024 ALT [Catalytic activity/Vol] 46 U/L 16-61 [facility] Serum or plasma albumin keesha urement (mass/volume)Ordered By: Jared Padilla on 09-15-2024 Albumin [Mass/Vol] 3.6 g/dL 3.2-5.0 [facility] Serum or plasma alkaline marysol sphatase measurementOrdered By: Jared Padilla on 09-15-2024 ALP [Catalytic activity/Vol] 54 U/L 45-117 [facility] Serum or plasma calcium keesha urement (mass/volume)Ordered By: Migdalia Dunlap on 09-15-2024 Calcium [Mass/Vol] 9.2 mg/dL 8.5-10.1 [facility] Serum or plasma creatinine m easurement (mass/volume)Ordered By: Jared Padilla on 09-15-2024 Creatinine [Mass/Vol] 1.17 mg/dL 0.70-1.30 [facility] Comment on above: The validity of the calculated GFR & GFRAA in patients over 70 years has not been determined. Clinical correlation is essential. Serum or plasma urea nitroge n measurement (mass/volume)Ordered By: Jaredsteve Padilla on 09-15-2024 Urea nitrogen [Mass/Vol] 16 mg/dL 7-18 [facility] Sodium levelOrdered By: Jared Padilla on 09-15-2024 Sodium [Moles/Vol] 141 mmol/L 136-145 [facility] Total proteinOrdered By: Jonny Padilla on 09-15-2024 Protein [Mass/Vol] 6.8 g/dL 6.4-8.2 [facility] Vitamin D,25 Hydroxyon 09-15 Vitamin D 25-OH 28.8 ng/mL Normal [facility] Comment on above: Result Comment: Terrie min D 25(OH) Status Range Deficiency <20 ng/mL (50nmol/L) Insufficiency 20 - 30 ng/mL (50 - 75 nmol/L) Sufficiency 30 - 100 ng/mL (75 - 250 nmol/L) Toxicity >100 ng/mL (>250 nmol/L) Performed By: #### L 509.1000 #### [facility] [address] [facility] [facility] [place], [address] Calcium,Totalon 09-10-2024 CA,Total 10.1 mg/dL Normal 8.5-10.1 [facility] Comment on above: Performed By: #### L 501.2200, L509.1000 ####[facility] [address] [place], [address] Intact parathyroid hormone ( iPTH) measurementOrdered By: Migdalia Dunlap on 09-10-2024 Parathyroid Hormone (Intact) 10.9 pg/mL Low 18.4-80.1 [facility] PTHINon 09-10-2024 PTH 10.9 pg/mL Low 18.4-80.1 [facility] Comment on above: Performed By: #### L 501.2200, L509.1000 ####[facility] [address] [place], [address] Serum or plasma calcium keesha urement (mass/volume)Ordered By: Migdalia Dunlap on 09-10-2024 Calcium [Mass/Vol] 10.1 mg/dL 8.5-10.1 [facility] Calcium,Totalon 09-03-2024 CA,Total 11.4 mg/dL High 8.5-10.1 [facility] Comment on above: Performed By: #### L 509.1000, L501.2200 ####[facility] [address] [place], [address] Intact parathyroid hormone ( iPTH) measurementOrdered By: Kamaljit Koehler on 09-03-2024 Parathyroid Hormone (Intact) 6.7 pg/mL Low 18.4-80.1 [facility] PTHINon 09-03-2024 PTH 6.7 pg/mL Low 18.4-80.1 [facility] Comment on above: Performed By: #### L 509.1000, L501.2200 ####[facility] [address] [place], [place], [address] Serum or plasma calcium keesha urement (mass/volume)Ordered By: Kamaljit Koehler on 09-03-2024 Calcium [Mass/Vol] 11.4 mg/dL High 8.5-10.1 [facility] Surgery Visit Reporton 09-03 Surgery Visit Report [facility] [address] [place] [address] OFFICE VISIT Date of Service: 09/03/24 MR#: [id number] Acct: [id number] Name: YAHAIRA MORFIN Rep #: [id number] : 1945 Provider: Dr. 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 Normal [facility] Discharge Instructionon 08-06 Discharge Instruction [facility] Medical Records Department [address] [place] [address] Instructions for Home/Discharge Instructions 08/22/24 1209 MR#: [id number] Acct: [id number] Name: YAHAIRA MORFIN Rep #: [id number] : 1945 78 From: Kamaljit Koehler MD PCP: Dr. Elmer Gillette MD Status:DEP [facility] Discharge Instructions Diet Discharge Diet: No restrictions [...] Elmer Gillette [employer] Providers: Live Muñoz Print Language: Syriac Discharge Orders/Prescriptions Prescriptions: New calcium carbonate-vitamin D3 [Os-Adelso 500 + D3] 500 mg-15 mcg (600 unit) tablet 2 tab PO BID 15 Days Qty: 60 0RF calcitriol 0.25 mcg capsule 0.25 mcg PO DAILY 15 Days Qty: 15 0RF Continued rosuvastatin 40 mg tablet 40 mg PO DAILY aspirin 81 mg tablet,delayed release (DR/EC) 81 mg PO DAILY omega 0-bky-qil-fish oil [Fish Oil] 1,200 (144-216) mg capsule [...] can be placed): Home, Self Care 08/22/24 0840 Kamaljit Koehler MD CC: Dr. Live Muñoz MD; Dr. Elmer Gillette MD Signed Normal [facility] Frozen Section (charge)on Frozen Section (charge) ------ ---- Patient Age/Sex Location Account Attending Physician ---- YAHAIRA MORFIN 78/M [facility] [id number] Dr. Kamaljit Koehler MD ---- Specimen: [id number] Received: 08/22/24 Status: KENDRA Roach Num: [id number] Spec Type: PARATHY Subm Dr: Dr. Kamaljit [...] Age/Sex Location Account Attending Physician ---- YAHAIRA MORFIN/Ness [facility] [id number] Dr. Kamaljit Koehler MD ---- GROSS DESCRIPTION [...] for frozen section diagnosis in one cassette. SJ 08/22/2024 TC:Jose RaulPT:[id number] ---- Patient Age/Sex Location Account Attending Physician ---- YAHAIRA MORFIN 78/M [facility] [id number] Dr. Kamaljit Koehler MD ---- Signed (signature on file) Dr. Jay Olivera MD 08/25/24 1309 ---- Normal [facility] Comment on above: Performed By: #### P FSC ####[facility] [address] [place], [place], [address] Intact parathyroid hormone ( iPTH) measurementOrdered By: Kamaljit Koehler on 08-22-2024 Parathyroid Hormone (Intact) 9.2 pg/mL Low 18.4-80.1 [facility] MR/POSTOP.ANEon 08-22-2024 MR/POSTOP.[facility] Medical Records Department [address] [place] [address] Anesthesia Postop Eval I 08/22/24 1217 MR#: [id number] Acct: [id number] Name: YAHAIRA MORFIN Rep #: [id number] : 1945 78 From: Neha Cardona CRNA PCP: Dr. Elmer Gillette MD Status:REG SDC Y Race: C Location: [place] [address] Anesthesia: Postop Eval I Current Vital Signs [...] 1 completed: Yes 08/22/24 1218 Date Neha Cardona AGRICULTURAL CHEMIST Cosigner Signature: Date CC: Signed Normal [facility] [id number] 08-22-2024 [facility] Medical Records Department [address] [place] [address] Anesthesia Postop Eval II 08/22/24 1241 MR#: [id number] Acct: [id number] Name: YAHAIRA MORFIN Rep #: [id number] : 1945 78 From: Kael Melissa MD PCP: Dr. Elmer Gillette MD Status:REG SD Y Race: C Location: [place] [address] Anesthesia Postop Eval I Sum Postop Eval Completion status Anesthesia document: Postop Eval 1 completed: Yes Anesthesia Postop Eval I Summary Anesthesia Postop Eval I Summary: Anesthesia Postop Eval I: Assessment Summary Airway patent Yes 08/22/24 12:18 AGRICULTURAL CHEMIST.JSWI Spontaneous unlabored Yes 08/22/24 12:18 AGRICULTURAL CHEMIST.JSWI respirations Mental status Asleep 08/22/24 12:18 AGRICULTURAL CHEMIST.JSWI nausea No 08/22/24 12:18 AGRICULTURAL CHEMIST.JSWI Vomiting No 08/22/24 12:18 AGRICULTURAL CHEMIST.JSWI Anesthesia Postop Eval I: Fluid Summary Crystalloid volume administer 1,400 08/22/24 12:18 AGRICULTURAL CHEMIST.JSWI (ml) Colloids volume administered ( ml) Blood Product volume administered (ml) Total IV fluid infused 1,400 08/22/24 12:18 AGRICULTURAL CHEMIST.JSWI Anesthesia Postop Eval I: Summary Notes Anesthesia Complication No 08/22/24 12:18 AGRICULTURAL CHEMIST.JSWI Anesthesia Complication Comment: Post-operative progress note Anesthesia: Postop Eval II Evaluation Mental status: Awake and Calm Pain Level: 1 nausea: No Vomiting: No Complications Anesthesia Complication: No 08/22/24 1242 Date Kael Colbertignyola Signature: Date CC: Signed [facility] Operative Reporton Operative Report [facility] Medical Records Department [address] [place] [address] Operative Report 08/22/24 1206 MR#: [id number] Acct: [id number] Name: YAHAIRA MORFIN Rajesh Rep #: [id number] : 1945 78 From: Kamaljit Koehler MD PCP: Dr. 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 [facility] PTHINon 08-22-2024 PTH 9.2 pg/mL Low 18.4-80.1 [facility] Comment on above: Performed By: #### L 509.1000 #### [facility] [address] [facility] [address] PTH 17.2 pg/mL Low 18.4-80.1 [facility] Comment on above: Performed By: #### L 509.1000 #### [facility] [address] [facility] [address] PTH 19.6 pg/mL Normal 18.4-80.1 [facility] Comment on above: Performed By: #### L 509.1000 #### [facility] [address] [facility] [place], [address] PTH 71.2 pg/mL Normal 18.4-80.1 [facility] Comment on above: Performed By: #### L 509.1000 #### [facility] [address] [place], [address] PTH 91.6 pg/mL High 18.4-80.1 [facility] Comment on above: Performed By: #### L 509.1000 #### [facility] [address] [place], [address] PTH 95.3 pg/mL High 18.4-80.1 [facility] Comment on above: Performed By: #### L 509.1000 #### [facility] [address] [place], [address] PTH 241.0 pg/mL High 18.4-80.1 [facility] Comment on above: Performed By: #### L 509.1000 #### [facility] [address] [place], [address] PTH 159.0 pg/mL High 18.4-80.1 [facility] Comment on above: Order Comment: NEEDE D @MADE UP. SPOKE WITH SURGERY(MELLISA?) AT 730 TO [facility]WIN KNOW OF @DELAY. SHE SAID IT WAS OK THEY JUST WANTED APRE-OP PTH. Performed By: #### L 509.1000 #### [facility] [address] [place], [address] 12 Lead EKGon 08-15-2024 12 Lead EKG [facility] Cardiovascular Services [address] [place] [address] 12 Lead EKG 08/15/24 0751 MR#: [id number] Acct: [id number] Name: YAHAIRA MORFIN Rep #: [id number] : 1945 78 From: Kamaljit Hendricks MD Attending Dr: Dr. Kamaljit Koehler MD Status: PRE [facility] Ordering Dr: Live Muñoz MD Date: 08/15/24 Location: [facility] Sex: M C Admitted: Test Reason : [...] ischemia Abnormal ECG Confirmed by Kamaljit Hendricks ([id number]), material expeditor AICHA MARIE ([id number]) on 08/15/2024 12:59:25 PM Referred By: Kamaljit Koehler Confirmed By: Kamaljit Hendricks 08/15/24 1259 Date Kamaljit Hendricks MD CC: Dr. Live Muñoz MD; Dr. Kamaljit Koehler MD; Dr. Elmer Gillette MD Signed [facility] Basic Metabolic Profile (BMP )on 08-15-2024 BUN/CRE 15.5 RATIO Normal 10-20 [facility] Comment on above: Performed By: #### L 509.1000 #### [facility] [address] [facility] [place], [address] CA,Total 11.1 mg/dL High 8.5-10.1 [facility] Comment on above: Performed By: #### L 509.1000 #### [facility] [address] [facility] [place], [address] Chloride [Moles/Vol] 110 mmol/L High 98-107 [facility] Comment on above: Performed By: #### L 509.1000 #### [facility] [address] [facility] [place], [address] CO2 [Moles/Vol] 26.0 mmol/L Normal 21.0-32.0 [facility] Comment on above: Performed By: #### L 509.1000 #### [facility] [address] [facility] [place], [address] Creatinine [Mass/Vol] 1.29 mg/dL Normal 0.70-1.30 [facility] Comment on above: Result Comment: The validity of the calculated GFR GFRAA in patients over 70 years has not been determined. Clinical correlation is essential. Performed By: #### L 509.1000 #### [facility] [address] [place], [address] EST GFR - AA 69 mL/min Normal >60 [facility] Comment on above: Result Comment: Afri can Austrian GFR Calc Performed By: #### L 509.1000 #### [facility] [address] [place], [address] GAP 2 Low 5-15 [facility] Comment on above: Performed By: #### L 509.1000 #### [facility] [address] [place], [address] GFR/1.73 sq M.predicted among non-blacks MDRD (S/P/Bld) [Vol rate/Area] 57 mL/min/{1.73_m2} Low >60 [facility] Comment on above: Result Comment: Non- GFR Calc Performed By: #### L 509.1000 #### [facility] [address] [place], [address] Glucose [Mass/Vol] 134 mg/dL High 74-106 [facility] Comment on above: Result Comment: Fast ing Glucose result greater than or equal to 126 mg/dL suggests DIABETES MELLITUS per A.D.A. criteria. Performed By: #### L 509.1000 #### [facility] [address] [place], [address] Potassium [Moles/Vol] 4.6 mmol/L Normal 3.5-5.1 [facility] Comment on above: Performed By: #### L 509.1000 #### [facility] [address] [place], [address] Sodium [Moles/Vol] 139 mmol/L Normal 136-145 [facility] Comment on above: Performed By: #### L 509.1000 #### [facility] [address] [place], [address] Urea nitrogen [Mass/Vol] 20 mg/dL High 7-18 [facility] Comment on above: Performed By: #### L 509.1000 #### [facility] [address] [place], [address] Blood urea nitrogen (BUN)/cr eatinine ratioOrdered By: Live Muñoz on 08-15-2024 Urea nitrogen/Creatinine [Mass ratio] 15.5 mg/mg 10- [facility] CBC-Complete Blood Cnt No Di ffon 08-15-2024 Erythrocyte distribution width (RBC) [Ratio] 12.8 % Normal 11.6-14.6 [facility] Comment on above: Performed By: #### L 509.1000 #### [facility] [address] [place], [address] Hematocrit (Bld) [Volume fraction] 50.6 % Normal 40-54 [facility] Comment on above: Performed By: #### L 509.1000 #### [facility] [address] [place], [address] Hemoglobin (Bld) [Mass/Vol] 16.6 g/dL High 13.0-16.5 [facility] Comment on above: Performed By: #### L 509.1000 #### [facility] [address] [place], [address] MCH (RBC) [Entitic mass] 31.6 pg Normal 27.0-32.0 [facility] Comment on above: Performed By: #### L 509.1000 #### [facility] [address] [place], [address] MCHC (RBC) [Mass/Vol] 32.8 g/dL Normal 32-36 [facility] Comment on above: Performed By: #### L 509.1000 #### [facility] [address] [place], [address] MCV (RBC) [Entitic vol] 96.4 fL High 80-94 [facility] Comment on above: Performed By: #### L 509.1000 #### [facility] [address] [place], [address] Platelet mean volume (Bld) [Entitic vol] 9.3 fL Normal 6.2-12.0 [facility] Comment on above: Performed By: #### L 509.1000 #### [facility] [address] [place], [address] Platelets (Bld) [#/Vol] 179 10*3/uL Normal 150-450 [facility] Comment on above: Performed By: #### L 509.1000 #### [facility] [address] [place], [address] RBC (Bld) [#/Vol] 5.25 10*6/uL Normal 4.6-6.2 [facility] Comment on above: Performed By: #### L 509.1000 #### [facility] [address] [place], [address] RDW SD 45.4 fl High 35.1-43.9 [facility] Comment on above: Performed By: #### L 509.1000 #### [facility] [address] [place], [address] WBC (Bld) [#/Vol] 5.8 10*3/uL Normal 4.4-11.0 [facility] Comment on above: Performed By: #### L 509.1000 #### [facility] [address] [place], [address] Carbon dioxide measurementOr dered By: Live Muñoz on 08-15-2024 CO2 [Moles/Vol] 26.0 mmol/L 21.0-32.0 [facility] Chloride measurementOrdered By: Live Muñoz on 08-15-2024 Chloride [Moles/Vol] 110 mmol/L High 98-107 [facility] Erythrocyte distribution wid th ratioOrdered By: Live Muñoz on 08-15-2024 Erythrocyte distribution width (RBC) [Ratio] 12.8 % 11.6-14.6 [facility] Erythrocyte distribution wid th standard deviationOrdered By: Live Muñoz on 08-15-2024 Erythrocyte distribution width (RBC) [Entitic vol] 45.4 fL High 35.1-43.9 [facility] Estimated glomerular filtrat ion rate (GFR) AmericanOrdered By: Live Muñoz on 08-15-2024 Estimated GFR (MDRD) Amer 69 mL/min >60 [facility] Comment on above: GFR Calc Glomerular filtration rate ( GFR) estimationOrdered By: Live Muñoz on 08-15-2024 Estimated GFR (MDRD) Non-Af Amer 57 mL/min Low >60 [facility] Comment on above: Non- GFR Calc Glucose measurementOrdered B y: Live Muñoz on 08-15-2024 Glucose [Mass/Vol] 134 mg/dL High 74-106 [facility] Comment on above: Fasting Glucose resu lt greater than or equal to 126 mg/dL suggests DIABETES MELLITUS per A.D.A. criteria. Hematocrit Auto (Bld) [Volum e fraction]Ordered By: Live Muñoz on 08-15-2024 Hematocrit (Bld) [Volume fraction] 50.6 % 40-54 [facility] Hemoglobin measurementOrdere d By: Live Muñoz on 08-15-2024 Hemoglobin (Bld) [Mass/Vol] 16.6 g/dL High 13.0-16.5 [facility] MCV (mean corpuscular volume ) determinationOrdered By: Live Muñoz on 08-15-2024 MCV (RBC) [Entitic vol] 96.4 fL High 80-94 [facility] Mean corpuscular hemoglobin (MCH) determinationOrdered By: Live Muñoz on 08-15-2024 MCH (RBC) [Entitic mass] 31.6 pg 27.0-32.0 [facility] Mean corpuscular hemoglobin concentration (MCHC) determinationOrdered By: Live Muñoz on 08-15-2024 MCHC (RBC) [Mass/Vol] 32.8 g/dL 32-36 [facility] Mean platelet volume determi nationOrdered By: Live Muñoz on 08-15-2024 Platelet mean volume (Bld) [Entitic vol] 9.3 fL 6.2-12.0 [facility] PTHINon 08-15-2024 PTH 149.1 pg/mL High 18.4-80.1 [facility] Comment on above: Performed By: #### L 509.1000 #### [facility] [address] [place], [address] Platelet countOrdered By: Salvador Muñoz on 08-15-2024 Platelets (Bld) [#/Vol] 179 10*3/uL 150-450 [facility] Potassium measurementOrdered By: Live Muñoz on 08-15-2024 Potassium [Moles/Vol] 4.6 mmol/L 3.5-5.1 [facility] RBC Auto (Bld) [#/Vol]Ordere d By: Live Muñoz on 08-15-2024 RBC (Bld) [#/Vol] 5.25 10*6/uL 4.6-6.2 [facility] Serum anion gap measurementO rdered By: Live Muñoz on 08-15-2024 Anion gap [Moles/Vol] 2 mmol/L Low 5-15 [facility] Serum or plasma calcium keesha urement (mass/volume)Ordered By: Live Muñoz on 08-15-2024 Calcium [Mass/Vol] 11.1 mg/dL High 8.5-10.1 [facility] Serum or plasma creatinine m easurement (mass/volume)Ordered By: Live Muñoz on 08-15-2024 Creatinine [Mass/Vol] 1.29 mg/dL 0.70-1.30 [facility] Comment on above: The validity of the calculated GFR & GFRAA in patients over 70 years has not been determined. Clinical correlation is essential. Serum or plasma urea nitroge n measurement (mass/volume)Ordered By: Live Muñoz on 08-15-2024 Urea nitrogen [Mass/Vol] 20 mg/dL High 7-18 [facility] Sodium levelOrdered By: Live Muñoz on 08-15-2024 Sodium [Moles/Vol] 139 mmol/L 136-145 [facility] White blood cell (WBC) count Ordered By: Live Muñoz on 08-15-2024 WBC (Bld) [#/Vol] 5.8 10*3/uL 4.4-11.0 [facility] MR/PATFarrah 08-14-2024 MR/PAT.LUC [facility] Medical Records Department [address] [place] [address] PAT - Anesthesia 08/14/24 1434 MR#: [id number] Acct: [id number] Name: YAHAIRA MORFIN Rep #: [id number] : 1945 78 From: Live Muñoz MD PCP: Dr. Elmer Gillette MD Status:PRE [facility] Y Race: C Location: [facility] ADDENDUM by Dr. 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 Female No 08/14/24 13:38 HX of Motion [...] 08/01/24 08:11 Respiratory Assessment Respiratory Assessment - 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: Respiratory Tract Infection Hx - 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 Hx Respiratory Tract Infection No 08/14/24 13:38 STOP Sleep Apnea STOP Sleep Apnea - 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: STOP Sleep Apnea - 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 Hx Hypertension Yes 08/14/24 13:38 Hx Sleep [...] Tobacco Use History Tobacco Use History - 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: Tobacco Use History - 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 Specify any problems Hx of Preganancy in last 3 N/A 08/14/24 13:38 Months Nurse Filling Out Transfusion [facility] 08/14/24 13:38 Questions: Date: 08/14/24 08/14/24 13:38 Time: 13:45 08/14/24 13:38 Patient unable to answer at this time (ie. 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: /Reproductive Hx- 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 Hx Now Gestational Age (in weeks): EDC: Hx Hx Para Hx Section SAB No 12/06/21 14:57 [facility] Medical History (Updated 08/14/24 @ 13:45 by Edilia Galloway) Wears hearing aid Wears dentures Wears glasses High cholesterol Non-smoker CPAP (continuous positive airway pressure) dependence Sleep apnea Cardiology follow-up encounter COVID-19 ( 09/2022) MARLYS on CPAP Vitamin D deficiency Atherosclerosis of coronary artery of [place] heart without angina pectoris Primary hyperparathyroidism History of deep vein thrombosis of lower extremity Kidney stones Condyloma acuminata Hyperlipidemia Hyperparathyroidism RLS (restless legs syndrome) Sleep apnea Dog bite DVT (deep (more content not included)... [facility] Surgery Visit Reporton 08-01 Surgery Visit Report [facility] [address] [place] [address]. [address] [place] [address] OFFICE VISIT Date of Service: 08/01/24 MR#: [id number] Acct: [id number] Name: YAHAIRA MORFIN Rep #: [id number] : 1945 Provider: Dr. Kamaljit sloan MD Age/Sex: 78/M Location: [facility] Status: Signed Intake Vital Signs 06/10/24 12:58 08/01/24 08:11 Height 5 ft 9 in 5 ft 9 in Weight: 195 lb 193 lb BMI 28.8 28.5 BP 143/74 H 162/69 H Blood Pressure Location Rt brachial Rt brachial Position Sitting Sitting Respiration 18 16 Intake Visit Reasons: DISCUSS SURGERY Chief Complaint: discuss results and surgery [employer] Supervisor Required: No Is patient in pain?: No [...] 08/01/24 History mcg (1,000 unit) tablet omega 7-fkf-epc-fish oil 1,200 mg cap PO BID 05/13/24 08/01/24 History (144 mg-216 mg) capsule (Fish Oil) Have you fallen in the past year?: No PFSH Medical History COVID-19 ( 09/2022) MARLYS on CPAP Vitamin D deficiency Atherosclerosis of coronary artery of [place] heart without angina pectoris Primary hyperparathyroidism History [...] following result: 1. ABNORMAL 99m Tc SESTAMIBI DCQEZP-LITMS-IC PARATHYROID IMAGING DUAL PHASE EXAMINATION. 2. The [...] him falling asleep in his chair), negatively: patient registration rep of arthritis or myalgias, no muscle weakness, and no memory or concentration difficulty/and positively: Occasional constipation as well as frequent urination. Patient has a history of prior radiation exposure which she states was related to his time in the [employer] business but insist that appropriate PPE was always used per OSHA. Patient has no family history of other endocrinopathies Patient does not have a diet high in dairy???citing limited intake of cheese and ice cream (more content not included)... [facility] Parathyroid SPECT w/ CONCUR CTon 07-17-2024 Parathyroid SPECT w/ CONCUR CT [facility] Imaging Services [address] [place], [place] [id number] Parathyroid SPECT w/ CONCUR CT MR#: [id number] Acct: [id number] Name: YAHAIRA MORFIN Rep #: [id number] : 1945 M 78 From: Sae Stiles PCP: Dr. Elmer Gillette MD Status: [facility] Study: Parathyroid SPECT w/ CONCUR CT Date of Exam: 09/17/23 Exam# [id number] Ordering Dr: Kamaljit Koehler MD [id number] CLINICAL: 78-year-old male with clinical hyperparathyroidism. 99m [...] CT IMPRESSION: 1. ABNORMAL 99m Tc SESTAMIBI [id number] PARATHYROID IMAGING DUAL PHASE EXAMINATION. 2. 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 Electronically Signed: Sae Anderson DO at 10:39 EST , CC: Dr. Kamaljit Koehler MD; Dr. Elmer Gillette MD President & Ceo: Signed [facility] Influenza virus A and B and SARS-CoV-2 (COVID-19) and Respiratory syncytial virus RNAOrdered By: Elmer Gillette on 06-13-2024 SARS-CoV-2 (COVID-19) RNA SUHAIL+probe Ql (Unsp spec) [facility] M100.678on 06-13-2024 M100.678 Pending SARS-CoV-2 (COVID 19) Negative INFLUENZA A Negative INFLUENZA B Negative RSV PCR Negative [facility] Comment on above: Performed By: #### M 100.678 ####[facility] [id number] [place], [address] Surgery Visit Reporton 06-10 Surgery Visit Report [facility] [address] [place] [address] OFFICE VISIT Date of Service: 06/10/24 MR#: [id number] Acct: [id number] Name: YAHAIRA MORFIN Rep #: [id number] : 1945 Provider: Dr. Kamaljit sloan MD Age/Sex: 78/M Location: [facility] Status: Signed Intake Vital Signs 05/13/24 [...] HYPER PARATHYROIDISM Chief Complaint: Primary hyperparathyroidism/rakesh ne [employer] Supervisor Required: No Is patient in pain?: No [...] 06/10/24 History mcg (1,000 unit) tablet omega 0-uyz-kix-fish oil 1,200 mg cap PO BID 05/13/24 06/10/24 History (144 mg-216 mg) capsule (Fish Oil) Have you fallen in the past year?: No PFSH Medical History COVID-19 ( 09/2022) MARLYS on CPAP Vitamin D deficiency Atherosclerosis of coronary artery of [place] heart without angina pectoris Primary hyperparathyroidism History [...] him falling asleep in his chair), negatively: patient registration rep of arthritis or myalgias, no muscle weakness, and no memory or concentration difficulty/and positively: Occasional constipation as well as frequent urination. Patient has a history of prior radiation exposure which she states was related to his time in the [employer] but insist that appropriate PPE was always [...] glands or (more content not included)... [facility] Thyroidon 05-29-2024 Thyroid [facility] Imaging Services [address] [place] [address] Thyroid MR#: [id number] Acct: [id number] Name: YAHAIRA MORFIN Rep #: [id number] : 1945 M 78 From: Jona Espino MD PCP: Dr. Elmer Gillette MD Status: REG CLI Study: Thyroid Date of Exam: 05/29/24 Exam# [id number] Ordering Dr: Jared Padilla MD [id number] STUDY: THYROID ULTRASOUND REASON FOR EXAM: Male, [...] 10:14 EDT Reading Location ID and State: [facility] / [place] , Service support , CC: Dr. Elmer Gillette MD; Dr. Jared Padilla MD President & Ceo: Signed [facility] Endocrinology Visit Reporton 05-13-2024 Endocrinology Visit Report [facility] [address] [facility] [facility] [address] [place] [address] OFFICE VISIT Date of Service: 05/13/24 MR#: [id number] Acct: [id number] Name: YAHAIRA MORFIN Rep #: [id number] : 1945 Provider: Ness Camacho Age/Sex: 78/M Location: [facility] Status: Signed Intake Vital Signs 09/13/23 08:20 [...] 05/13/24 History mcg (1,000 unit) tablet omega 7-bhi-amw-fish oil 1,200 mg cap PO BID 05/13/24 05/13/24 History (144 mg-216 mg) capsule (Fish Oil) Have you fallen in the past year?: No PFSH Medical History COVID-19 ( 09/2022) MARLYS on CPAP Vitamin D deficiency Atherosclerosis of coronary artery of [place] heart without angina pectoris Primary hyperparathyroidism History [...] Original history from 09/29: abs: Calcium levels-- 20159.6 2019/11.2 2021/10.2 5,11.0 9,.8 Vitamin D 30 PTH 126 [...] attempt avoiding surgery. He received Reclast in [place], 2024. [facility] few weeks. He states he has a known, stable kidney stone. No hematuria or pain. He hasn't passed a stone in years His T-scores were -2.6 Unfortunately, his clacium has increased to 12.1 He has history of cardiac stents. He states he hasn't seen a recruiter coordinator, however I see that he had an [...] comfortable, no (more content not included)... [facility] Absolute lymphocyte countOrd ered By: Elmer Gillette on 09-26-2023 Lymphocytes Auto (Unsp spec) [#/Vol] 1.36 10*3/uL 0.83-4.51 [facility] Automated lymphocyte count a s percentage of total leukocytesOrdered By: Elmer Gillette on 09-26-2023 Lymphocytes/100 WBC Auto (Unsp spec) 18.6 % 19-41 [facility] Basophil percentageOrdered B y: Elmer Gillette on 09-26-2023 Basophils/100 WBC (Bld) 0.8 % 0-1 [facility] Bilirubin [Mass/Vol] 0.70 mg/dL 0.20-1.00 [facility] Comment on above: For patients on eltr ombopag therapy, use of Dimension [place] TBIL is not recommended. Chloride [Moles/Vol] 110 mmol/L 98-107 [facility] Cholesterol [Mass/Vol] 137 mg/dL <200 [facility] Comment on above: <200 mg/dL Desirable 200-240 mg/dL Borderline >240 mg/dL High Risk Eosinophils/100 WBC (Bld) 2.7 % 0-5 [facility] Glucose [Mass/Vol] 87 mg/dL 74-106 [facility] Hemoglobin (Bld) [Mass/Vol] 15.6 g/dL 13.0-16.5 [facility] Monocytes/100 WBC (Bld) 12.6 % 0-10 [facility] Neutrophils (Bld) [#/Vol] 4.8 10*3/uL 2.0-7.7 [facility] Neutrophils/100 WBC (Bld) 64.8 % 47-70 [facility] Potassium [Moles/Vol] 4.5 mmol/L 3.5-5.1 [facility] Protein [Mass/Vol] 6.7 g/dL 6.4-8.2 [facility] Sodium [Moles/Vol] 140 mmol/L 136-145 [facility] Triglyceride [Mass/Vol] 182 mg/dL <199 [facility] Comment on above: The drugs N-Acetylcy steine and Metamizole may falsely depress this assay.Serum Triglycerides Reference Interval Normal <150 mg/dL Borderline high 150 - 199 mg/dL High 200 - 499 mg/dL Very High > or = 500 mg/dL WBC (Bld) [#/Vol] 7.3 10*3/uL 4.4-11.0 [facility] Determination of erythrocyte mean corpuscular volume (MCV)Ordered By: Elmer Gillette on 09-26-2023 MCV (RBC) [Entitic vol] 94.2 fL 80-94 [facility] Erythrocyte distribution wid th ratioOrdered By: Elmer Gillette on 09-26-2023 Erythrocyte distribution width (RBC) [Ratio] 12.6 % 11.6-14.6 [facility] Erythrocyte distribution wid th standard deviationOrdered By: Elmer Gillette on 09-26-2023 Erythrocyte distribution width (RBC) [Entitic vol] 43.4 fL 35.1-43.9 [facility] Hematocrit Auto (Bld) [Volum e fraction]Ordered By: Elmer Gillette on 09-26-2023 Hematocrit (Bld) [Volume fraction] 47.0 % 40-54 [facility] Immature granulocytes/100 WB C Auto (Bld)Ordered By: Elmer Gillette on 09-26-2023 Immature granulocytes/100 WBC (Bld) 0.500 % 0.0-0.9 [facility] Comment on above: IG% - Immature Granu locytes (promyelocytes, myelocytes and metamyelocytes) > 1% indicates that a LEFT SHIFT is Present. Laboratory - Chemistry and C hemistry - challengeOrdered By: Elmer Gillette on 09-26-2023 Albumin/Globulin [Mass ratio] 1.2 {ratio} 0.9-2.4 [facility] ALP [Catalytic activity/Vol] 60 U/L 45-117 [facility] ALT [Catalytic activity/Vol] 40 U/L 16-61 [facility] Cholesterol in HDL [Mass/Vol] 47 mg/dL >40 [facility] Comment on above: The drugs N-Acetylcy steine and Metamizole may falsely depress this assay. Reference Range HDL <40 mg/dL Low HDL Cholesterol HDL >or= 60 mg/dL High HDL Cholesterol Cholesterol in LDL [Mass/Vol] 54 mg/dL 0-130 [facility] CO2 [Moles/Vol] 28.0 mmol/L 21.0-32.0 [facility] Globulin (S) [Mass/Vol] 3.0 g/dL 2.2-4.2 [facility] Urea nitrogen/Creatinine [Mass ratio] 16.7 mg/mg 10-20 [facility] Laboratory - Hematology and Cell countsOrdered By: Elmer Gillette on 09-26-2023 MCH (RBC) [Entitic mass] 31.3 pg 27.0-32.0 [facility] MCHC (RBC) [Mass/Vol] 33.2 g/dL 32-36 [facility] Nucleated RBC/100 WBC (Bld) [Ratio] 0 % 0-5 [facility] Platelet mean volume (Bld) [Entitic vol] 9.6 fL 6.2-12.0 [facility] Platelets (Bld) [#/Vol] 194 10*3/uL 150-450 [facility] No Panel InformationOrdered By: Elmer Gillette on 09-26-2023 Estimated GFR (MDRD) Amer 80 mL/min >60 [facility] Comment on above: GFR Calc Estimated GFR (MDRD) Non-Af Amer 66 mL/min >60 [facility] Comment on above: Non- GFR Calc Vitamin D 25-Hydroxy 28.5 ng/mL [facility] Comment on above: Vitamin D 25(OH) Sta tus Range Deficiency <20 ng/mL (50nmol/L) Insufficiency 20 - 30 ng/mL (50 - 75 nmol/L) Sufficiency 30 - 100 ng/mL (75 - 250 nmol/L) Toxicity >100 ng/mL (>250 nmol/L) VLDL Cholesterol 36 mg/dL 5-40 [facility] RBC Auto (Bld) [#/Vol]Ordere d By: Elmer Gillette on 09-26-2023 RBC (Bld) [#/Vol] 4.99 10*6/uL 4.6-6.2 [facility] Serum or plasma calcium keesha urement (mass/volume)Ordered By: Elmer Gillette on 09-26-2023 Calcium [Mass/Vol] 11.2 mg/dL 8.5-10.1 [facility] Serum or plasma creatinine m easurement (mass/volume)Ordered By: Elmer Gillette 09-26-2023 Creatinine [Mass/Vol] 1.14 mg/dL 0.70-1.30 [facility] [place] Comment on above: The validity of the calculated GFR & GFRAA in patients over 70 years has not been determined. Clinical correlation is essential. Serum or plasma thyroid stim ulating hormone (TSH) measurement (units/volume)Ordered By: Elmer Gillette on 09-26-2023 TSH Qn 2.98 uIU/mL 0.358-3.74 [facility] Serum or plasma urea nitroge n measurement (mass/volume)Ordered By: Elmer Gillette 09-26-2023 Urea nitrogen [Mass/Vol] 19 mg/dL 7-18 [facility] Thin prep Papanicolaou smear with manual screeningOrdered By: Elmer Gillette 09-26-2023 Thin prep Papanicolaou smear with manual screening 3.7 g/dL 3.2-5.0 [facility] Thin prep Papanicolaou smear with manual screening 22 U/L 15-37 [facility] Thin prep Papanicolaou smear with manual screening 2 5-15 [facility] No Panel InformationOrdered By: Jared Padilla on 09-24-2023 Miscellaneous Test See comment [facility] Comment on above: TEST RESULTS LIMITSL itholink [...] High mg/g creat 34-196 [facility] ORIGINAL REPORT ON FILE IN LAB CONTAINS [...] Sign Date: 07/02/2023 11:35:30 AM Ordering Provider: [facility] ([place]) INR in Blood by Coagulation assayon 02-09-2022 INR Coag (Bld) [Relative time] 1.0 {INR} [facility] Work Phone: Laboratory - Coagulationon 0 02-09-2022 aPTT Coag (Bld) [Time] 30.4 s 24.1-36.2 [facility] Work Phone: PT Coag (PPP) [Time] 13.2 s 11.7-14.9 [facility] Work Phone: No Panel Informationon 02-09 D-Dimer Quantitative (PE/DVT) < 0.27 FEU/ug/m 0.27-0.49 [facility] Work Phone: Comment on above: NORMAL D-Dimer level (<0.50) indicates no DVT or PE. Absolute lymphocyte counton 12-10-2021 Lymphocytes Auto (Unsp spec) [#/Vol] 1.22 10*3/uL 0.83-4.51 [facility] Work Phone: Basophil percentageon 2021 Basophils/100 WBC (Bld) 0.6 % 0-1 [facility] Work Phone: Chloride [Moles/Vol] 103 mmol/L 98-107 [facility] Work Phone: Eosinophils/100 WBC (Bld) 0.8 % 0-5 [facility] Work Phone: Glucose [Mass/Vol] 106 mg/dL 74-106 [facility] Work Phone: Comment on above: Fasting Glucose resu lt from 100 to 125 mg/dL suggests IMPAIRED HOMEOSTASIS per A.D.A. criteria. Neutrophils (Bld) [#/Vol] 9.5 10*3/uL 2.0-7.7 [facility] Work Phone: Neutrophils/100 WBC (Bld) 72.8 % 47-70 [facility] Work Phone: Potassium [Moles/Vol] 4.4 mmol/L 3.5-5.1 [facility] Work Phone: Sodium [Moles/Vol] 133 mmol/L 136-145 [facility] Work Phone: WBC (Bld) [#/Vol] 13.0 10*3/uL 4.4-11.0 [facility] Work Phone: Basophil percentage 0-5 SEEN /hpf 0-5 [facility] Work Phone: Bilirubin Test strip Ql (U)o n 12-10-2021 Bilirubin Ql (U) Negative Negative [facility] Work Phone: Blood erythrocytes count (nu mber/volume)on 12-10-2021 RBC (Bld) [#/Vol] 5.17 10*6/uL 4.6-6.2 [facility] Work Phone: Blood hemoglobin measurement (mass/volume)on 12-10-2021 Hemoglobin (Bld) [Mass/Vol] 16.8 g/dL 13.0-16.5 [facility] Work Phone: Blood lymphocytes/100 leukoc yteson 12-10-2021 Lymphocytes/100 WBC (Bld) 9.4 % 19-41 [facility] Work Phone: Blood manual differential co mment interpretation (narrative result)on 12-10-2021 Manual differential comment Andrew (Bld) [Interp] SCANNED [facility] Work Phone: Blood monocytes/100 leukocyt eson 12-10-2021 Monocytes/100 WBC (Bld) 15.9 % 0-10 [facility] Work Phone: Blood platelet adequacy dete ction by light microscopyon 12-10-2021 Platelets LM Ql (Bld) ADEQUATE ADEQ [facility] Work Phone: Blood platelet mean volumeon 12-10-2021 Platelet mean volume (Bld) [Entitic vol] 9.1 fL 6.2-12.0 [facility] Work Phone: Determination of erythrocyte mean corpuscular volume (MCV)on 12-10-2021 MCV (RBC) [Entitic vol] 94.6 fL 80-94 [facility] Work Phone: Hematocrit Auto (Bld) [Volum e fraction]on 12-10-2021 Hematocrit (Bld) [Volume fraction] 48.9 % 40-54 [facility] Work Phone: Ketones Test strip Ql (U)on 12-10-2021 Ketones Ql (U) Negative Negative [facility] Work Phone: [phone] Laboratory - Chemistry and C hemistry - challengeon 12-10-2021 CO2 [Moles/Vol] 25.0 mmol/L 21.0-32.0 [facility] Work Phone: [phone] Urea nitrogen/Creatinine [Mass ratio] 17.8 mg/mg 10-20 [facility] Work Phone: [phone] Laboratory - Hematology and Cell countson 12-10-2021 Erythrocyte distribution width (RBC) [Entitic vol] 43.1 fL 35.1-43.9 [facility] Work Phone: [phone] Erythrocyte distribution width (RBC) [Ratio] 12.3 % 11.6-14.6 [facility] Work Phone: [phone] Immature granulocytes/100 WBC (Bld) 0.500 % 0.0-0.9 [facility] Work Phone: [phone] Comment on above: IG% - Immature Granu locytes (promyelocytes, myelocytes and metamyelocytes) > 1% indicates that a LEFT SHIFT is Present. MCH (RBC) [Entitic mass] 32.5 pg 27.0-32.0 [facility] Work Phone: [phone] Nucleated RBC/100 WBC (Bld) [Ratio] 0 % 0-5 [facility] Work Phone: [phone] MCHC Auto (RBC) [Mass/Vol]on 12-10-2021 MCHC (RBC) [Mass/Vol] 34.4 g/dL 32-36 [facility] Work Phone: [phone] Mucus LM Ql (Urine sed)on Mucus Ql (Urine sed) 0 SEEN /hpf [facility] Work Phone: [phone] Nitrite Test strip Ql (U)on 12-10-2021 Nitrite Ql (U) Negative Negative [facility] Work Phone: [phone] Panel Informationon 12-10 Estimated Creatinine Clearance Calc 43.72 ml/min [facility] Work Phone: [phone] Estimated GFR (MDRD) Amer 60 mL/min >60 [facility] Work Phone: Comment on above: GFR Calc Estimated GFR (MDRD) Non-Af Amer 50 mL/min >60 [facility] Work Phone: Comment on above: Non- GFR Calc Platelets bldon 12-10-2021 Platelets (Bld) [#/Vol] 208 10*3/uL 150-450 [facility] Work Phone: Protein Test strip Ql (U)on 12-10-2021 Protein Ql (U) 500 mg/dl Negative [facility] Work Phone: RBC morphologyon 12-10-2021 RBC morphology finding Nom (Bld) NORM C+C NORMAL NORM C&C [facility] Work Phone: Review by pathologiston Pathologist review Andrew (Unsp spec) [Interp] Colleen lazcano [facility] Work Phone: Pathologist review Andrew (Unsp spec) [Interp] Reviewed [facility] Work Phone: Comment on above: Previous reported re sult: Colleen neno Edited by: RGOOD on 12/12/21:1322Neutrophilic leukocytosis.Polycythemia Clinical correlation necessary.Jay Olivera M.D. 12/12/21 AMENDED REPORT 12/12/21 1322 PATH REV previously reported as: Colleen lazcano Serum or plasma calcium keesha urement (mass/volume)on 12-10-2021 Calcium [Mass/Vol] 11.0 mg/dL 8.5-10.1 [facility] Work Phone: Serum or plasma creatinine m easurement (mass/volume)on 12-10-2021 Creatinine [Mass/Vol] 1.46 mg/dL 0.70-1.30 [facility] Work Phone: Comment on above: The validity of the calculated GFR & GFRAA in patients over 70 years has not been determined. Clinical correlation is essential. Serum or plasma urea nitroge n measurement (mass/volume)on 12-10-2021 Urea nitrogen [Mass/Vol] 26 mg/dL 7-18 [facility] Work Phone: Squamous epithelial cells de tection in urine sediment by light microscopyon 12-10-2021 Epithelial cells.squamous LM Ql (Urine sed) 0 SEEN /hpf 0-5 [facility] Work Phone: Thin prep Papanicolaou smear with manual screeningon 12-10-2021 Thin prep Papanicolaou smear with manual screening 5 5-15 [facility] Work Phone: Urine blood detectionon 05-0 RBC Ql (U) 250 /ul Negative [facility] Work Phone: RBC Ql (U) 50-100 SEEN /hpf 0-5 [facility] Work Phone: Urine clarityon 12-10-2021 Clarity (U) Sl. Cloudy Clear [facility] Work Phone: Urine color determinationon 12-10-2021 Color (U) Yellow Yellow [facility] Work Phone: [phone] Urine glucose detectionon Glucose Ql (U) Normal mg/dl Normal [facility] Work Phone: Urine leukocyte esterase det ection by dipstickon 12-10-2021 Leukocyte esterase Test strip Ql (U) 25 /ul Negative [facility] Work Phone: Urine pHon 12-10-2021 pH (U) 6.0 [pH] 5.0 - 8.0 [facility] Work Phone: Urine sediment bacteria coun t by microscopy (number/high power field)on 12-10-2021 Bacteria LM.HPF (Urine sed) [#/Area] Not Reportable [facility] Work Phone: Urine specific gravity measu rementon 12-10-2021 Specific gravity (U) [Rel density] 1.025 1.002-1.030 [facility] Work Phone: Urobilinogen Auto test strip Ql (U)on 12-10-2021 Urobilinogen Ql (U) Normal mg/dl Normal [facility] Work Phone: Absolute lymphocyte counton 12-01-2021 Lymphocytes Auto (Unsp spec) [#/Vol] 1.19 10*3/uL 0.83-4.51 [facility] Work Phone: Basophil percentageon 2021 Basophil percentage 0 SEEN /hpf 0-5 [facility] Work Phone: Basophils/100 WBC (Bld) 0.8 % 0-1 [facility] Work Phone: Chloride [Moles/Vol] 109 mmol/L 98-107 [facility] Work Phone: Eosinophils/100 WBC (Bld) 3.8 % 0-5 [facility] Work Phone: Glucose [Mass/Vol] 98 mg/dL 74-106 [facility] Work Phone: Neutrophils (Bld) [#/Vol] 2.6 10*3/uL 2.0-7.7 [facility] Work Phone: Neutrophils/100 WBC (Bld) 53.3 % 47-70 [facility] Work Phone: Potassium [Moles/Vol] 4.6 mmol/L 3.5-5.1 [facility] Work Phone: Sodium [Moles/Vol] 139 mmol/L 136-145 [facility] Work Phone: WBC (Bld) [#/Vol] 4.8 10*3/uL 4.4-11.0 [facility] Work Phone: Bilirubin Test strip Ql (U)o n 12-01-2021 Bilirubin Ql (U) Negative Negative [facility] Work Phone: Blood erythrocytes count (nu mber/volume)on 12-01-2021 RBC (Bld) [#/Vol] 4.74 10*6/uL 4.6-6.2 [facility] Work Phone: Blood hemoglobin measurement (mass/volume)on 12-01-2021 Hemoglobin (Bld) [Mass/Vol] 15.3 g/dL 13.0-16.5 [facility] Work Phone: Blood lymphocytes/100 leukoc yteson 12-01-2021 Lymphocytes/100 WBC (Bld) 24.8 % 19-41 [facility] Work Phone: [phone] Blood monocytes/100 leukocyt eson 12-01-2021 Monocytes/100 WBC (Bld) 16.7 % 0-10 [facility] Work Phone: Blood platelet mean volumeon 12-01-2021 Platelet mean volume (Bld) [Entitic vol] 9.5 fL 6.2-12.0 [facility] Work Phone: [phone] Determination of erythrocyte mean corpuscular volume (MCV)on 12-01-2021 MCV (RBC) [Entitic vol] 95.8 fL 80-94 [facility] Work Phone: [phone] Hematocrit Auto (Bld) [Volum e fraction]on 12-01-2021 Hematocrit (Bld) [Volume fraction] 45.4 % 40-54 [facility] Work Phone: Ketones Test strip Ql (U)on 12-01-2021 Ketones Ql (U) Negative Negative [facility] Work Phone: [phone] Laboratory - Chemistry and C hemistry - challengeon 12-01-2021 CO2 [Moles/Vol] 25.0 mmol/L 21.0-32.0 [facility] Work Phone: Urea nitrogen/Creatinine [Mass ratio] 17.6 mg/mg 10-20 [facility] Work Phone: [phone] Laboratory - Hematology and Cell countson 12-01-2021 Erythrocyte distribution width (RBC) [Entitic vol] 45.4 fL 35.1-43.9 [facility] Work Phone: [phone] Erythrocyte distribution width (RBC) [Ratio] 12.8 % 11.6-14.6 [facility] Work Phone: [phone] Immature granulocytes/100 WBC (Bld) 0.600 % 0.0-0.9 [facility] Work Phone: Comment on above: IG% - Immature Granu locytes (promyelocytes, myelocytes and metamyelocytes) > 1% indicates that a LEFT SHIFT is Present. MCH (RBC) [Entitic mass] 32.3 pg 27.0-32.0 [facility] Work Phone: Nucleated RBC/100 WBC (Bld) [Ratio] 0 % 0-5 [facility] Work Phone: MCHC Auto (RBC) [Mass/Vol]on 12-01-2021 MCHC (RBC) [Mass/Vol] 33.7 g/dL 32-36 [facility] Work Phone: Mucus LM Ql (Urine sed)on Mucus Ql (Urine sed) 0 SEEN /hpf [facility] Work Phone: [phone] Nitrite Test strip Ql (U)on 12-01-2021 Nitrite Ql (U) Negative Negative [facility] Work Phone: No Panel Informationon 12-01 Estimated Creatinine Clearance Calc 53.64 ml/min [facility] Work Phone: Estimated GFR (MDRD) Amer 76 mL/min >60 [facility] Work Phone: Comment on above: GFR Calc Estimated GFR (MDRD) Non-Af Amer 63 mL/min >60 [facility] Work Phone: [phone] Comment on above: Non- GFR Calc Platelets bldon 12-01-2021 Platelets (Bld) [#/Vol] 181 10*3/uL 150-450 [facility] Work Phone: [phone] Protein Test strip Ql (U)on 12-01-2021 Protein Ql (U) 15 mg/dl Negative [facility] Work Phone: [phone] Serum or plasma calcium keesha urement (mass/volume)on 12-01-2021 Calcium [Mass/Vol] 10.2 mg/dL 8.5-10.1 [facility] Work Phone: Serum or plasma creatinine m easurement (mass/volume)on 12-01-2021 Creatinine [Mass/Vol] 1.19 mg/dL 0.70-1.30 [facility] Work Phone: Comment on above: The validity of the calculated GFR & GFRAA in patients over 70 years has not been determined. Clinical correlation is essential. Serum or plasma urea nitroge n measurement (mass/volume)on 12-01-2021 Urea nitrogen [Mass/Vol] 21 mg/dL 7-18 [facility] Work Phone: Squamous epithelial cells de tection in urine sediment by light microscopyon 12-01-2021 Epithelial cells.squamous LM Ql (Urine sed) 0 SEEN /hpf 0-5 [facility] Work Phone: Thin prep Papanicolaou smear with manual screeningon 12-01-2021 Thin prep Papanicolaou smear with manual screening 5 5-15 [facility] Work Phone: Urine blood detectionon 11-05 RBC Ql (U) 10 /ul Negative [facility] Work Phone: RBC Ql (U) 0-5 SEEN /hpf 0-5 [facility] Work Phone: Urine clarityon 12-01-2021 Clarity (U) Clear Clear [facility] Work Phone: Urine color determinationon 12-01-2021 Color (U) Yellow Yellow [facility] Work Phone: [phone] Urine glucose detectionon Glucose Ql (U) Normal mg/dl Normal [facility] Work Phone: Urine leukocyte esterase det ection by dipstickon 12-01-2021 Leukocyte esterase Test strip Ql (U) Negative Negative [facility] Work Phone: Urine pHon 12-01-2021 pH (U) 6.0 [pH] 5.0 - 8.0 [facility] Work Phone: [phone] Urine sediment bacteria coun t by microscopy (number/high power field)on 12-01-2021 Bacteria LM.HPF (Urine sed) [#/Area] 1 /[HPF] None Seen [facility] Work Phone: Urine specific gravity measu rementon 12-01-2021 Specific gravity (U) [Rel density] 1.020 1.002-1.030 [facility] Work Phone: Urobilinogen Auto test strip Ql (U)on 12-01-2021 Urobilinogen Ql (U) Normal mg/dl Normal [facility] Work Phone: CT FACIAL WITHOUT CONTRASTon 02-02-2018 [...] posttraumatic. Correlate with direct visual inspection. Normal [facility] ([place]) CT HEAD WITHOUT CONTRASTon 0 01-29-2018 CT [...] or softtissues.IMPRESSION :No acute intracranial abnormality. Normal [facility] ([place] ED NOTEon 01-29-2018 [facility] NOTES Normal [facility]) [facility] NOTES Normal [facility]) ED PROVIDERon 01-29-2018 [facility] NOTES Normal [facility]) [facility] 2017 [facility] Coding OP/ED Report Normal [facility]) [facility]HIMCACENCSUMon 01-29-2018 [facility] CAC Encounter Summary Report Normal [facility] ([place]) Vital Signs Date Time Vital Sign Value Performing Clinician Karon canales 03-05-2025 08:21-0400 Diastolic blood pressure 79 mm[Hg] Dr. Elmer Gillette MD Work Phone: [facility] 03-05-2025 08:21-0400 Heart rate 70 /min Dr. Elmer Gillette MD Work Phone: [facility] 03-05-2025 08:21-0400 SaO2% (BldA) [Mass fraction] 96 % Dr. Elmer Gillette MD Work Phone: [facility] 03-05-2025 08:21-0400 Systolic blood pressure 131 mm[Hg] Dr. Elmer Gillette MD Work Phone: [phone] [place] [address] 03-05-2025 08:06-0400 Body height 175.[address] Elmer Gillette MD Work Phone: [phone] [place] [address] 03-05-2025 08:06-0400 Body mass index (BMI) [Ratio] 29.2 kg/m2 Dr. Elmer Gillette MD Work Phone: [phone] [place] [address] 03-05-2025 08:06-0400 Body weight 89.[address] Elmer Gillette MD Work Phone: [phone] [place] [address] 03-05-2025 08:06-0400 Respiratory rate 16 /min Dr. Elmer Gillette MD Work Phone: [phone] [place] [address] 11-11-2024 07:54-0400 Body height 175.[address] Elmer Gillette MD Work Phone: [phone] [place] [address] 11-11-2024 07:54-0400 Body mass index (BMI) [Ratio] 29.4 kg/m2 Dr. Elmer Gillette MD Work Phone: [phone] [place] [address] 11-11-2024 07:54-0400 Body weight 90.[address] Elmer Gillette MD Work Phone: [phone] [place] [address] 11-11-2024 07:54-0400 Diastolic blood pressure 76 mm[Hg] Dr. Elmer Gillette MD Work Phone: [phone] [address] 11-11-2024 07:54-0400 Heart rate 70 /min Dr. Elmer Gillette MD Work Phone: [phone] [place] [address] 11-11-2024 07:54-0400 SaO2% (BldA) [Mass fraction] 95 % Dr. Elmer Gillette MD Work Phone: [phone] [place] [address] 11-11-2024 07:54-0400 Systolic blood pressure 163 mm[Hg] Dr. Elmer Gillette MD Work Phone: [phone] [place] [address] 08-22-2024 15:27-0500 Body temperature 98.2 [degF] Dr. Elmer Gillette MD Work Phone: [phone] [place] [address] 08-22-2024 15:27-0500 Diastolic blood pressure 88 mm[Hg] Dr. Elmer Gillette MD Work Phone: [phone] [place] [address] 08-22-2024 15:27-0500 Heart rate 107 /min Dr. Elmer Gillette MD Work Phone: [phone] [place] [address] 08-22-2024 15:27-0500 Respiratory rate 20 /min Dr. Elmer Gillette MD Work Phone: [phone] [place] [address] 08-22-2024 15:27-0500 SaO2% (BldA) [Mass fraction] 98 % Dr. Elmer Gillette MD Work Phone: [phone] [place] [address] 08-22-2024 15:27-0500 Systolic blood pressure 137 mm[Hg] Dr. Elmer Gillette MD Work Phone: [phone] [place] [address] 08-22-2024 06:35-0500 Body height 175.[address] Elmer Gillette MD Work Phone: [phone] [place] [address] 08-22-2024 06:35-0500 Body mass index (BMI) [Ratio] 29 kg/m2 Dr. Elmer Gillette MD Work Phone: [phone] [place] [address] 08-22-2024 06:35-0500 Body weight 89.[address] Elmer Gillette MD Work Phone: [phone] [place] [address] 08-01-2024 08:11-0500 Body mass index (BMI) [Ratio] 28.5 kg/m2 Dr. Elmer Gillette MD Work Phone: [phone] [place] [address] 08-01-2024 08:11-0500 Body weight 87.[address] Elmer Gillette MD Work Phone: [phone] [place] [address] 08-01-2024 08:11-0500 Diastolic blood pressure 69 mm[Hg] Dr. Elmer Gillette MD Work Phone: [phone] [place] [address] 08-01-2024 08:11-0500 Respiratory rate 16 /min Dr. Elmer Gillette MD Work Phone: [facility] 08-01-2024 08:11-0500 Systolic blood pressure 162 mm[Hg] Dr. Elmer Gillette MD Work Phone: [facility] 11-14-2023 14:35-0400 Diastolic blood pressure 69 mm[Hg] [facility] 11-14-2023 14:35-0400 Heart rate 77 /min [facility] 11-14-2023 14:35-0400 Systolic blood pressure 145 mm[Hg] [facility] 11-14-2023 13:56-0400 Body height 175.[address] [facility] 11-14-2023 13:56-0400 Body mass index (BMI) [Ratio] 28.8 kg/m2 [facility] 11-14-2023 13:56-0400 Body temperature 96 [degF] [facility] 11-14-2023 13:56-0400 Body weight 88.[address] [facility] 11-14-2023 13:56-0400 Respiratory rate 16 /min [facility] 11-14-2023 13:56-0400 SaO2% (BldA) [Mass fraction] 98 % [facility] 09-13-2023 08:20-0500 Body height 175.[address] [facility] 09-13-2023 08:20-0500 Body mass index (BMI) [Ratio] 29.1 kg/m2 [facility] 09-13-2023 08:20-0500 Body temperature 98.6 [degF] [facility] 09-13-2023 08:20-0500 Body weight 89.[address] [facility] 09-13-2023 08:20-0500 Diastolic blood pressure 88 mm[Hg] [facility] 09-13-2023 08:20-0500 Heart rate 70 /min [facility] 09-13-2023 08:20-0500 Respiratory rate 16 /min [facility] 09-13-2023 08:20-0500 SaO2% (BldA) [Mass fraction] 97 % [facility] 09-13-2023 08:20-0500 Systolic blood pressure 156 mm[Hg] [facility] 02-09-2022 11:03-0400 Body height 175.[address] [facility] Work Phone: 02-09-2022 10:55-0400 Body mass index (BMI) [Ratio] 29 kg/m2 [facility] Work Phone: 02-09-2022 10:55-0400 Body temperature 98.8 [degF] [facility] Work Phone: 02-09-2022 10:55-0400 Body weight 89.[address] [facility] Work Phone: 02-09-2022 10:55-0400 Diastolic blood pressure 80 mm[Hg] [facility] Work Phone: 02-09-2022 10:55-0400 Heart rate 71 /min [facility] Work Phone: 02-09-2022 10:55-0400 Respiratory rate 15 /min [facility] Work Phone: 02-09-2022 10:55-0400 SaO2% (BldA) [Mass fraction] 96 % [facility] Work Phone: 02-09-2022 10:55-0400 Systolic blood pressure 151 mm[Hg] [facility] Work Phone: 12-10-2021 17:11-0400 Diastolic blood pressure 61 mm[Hg] [facility] Work Phone: 12-10-2021 17:11-0400 Heart rate 68 /min [facility] Work Phone: 12-10-2021 17:11-0400 Systolic blood pressure 128 mm[Hg] [facility] Work Phone: 12-10-2021 13:35-0400 Body height 175.26 cm [facility] Work Phone: 12-10-2021 13:35-0400 Body mass index (BMI) [Ratio] 29.5 kg/m2 [facility] Work Phone: 12-10-2021 13:35-0400 Body temperature 97.4 [degF] [facility] Work Phone: 12-10-2021 13:35-0400 Body weight 90.71 kg [facility] Work Phone: 12-10-2021 13:35-0400 Respiratory rate 16 /min [facility] Work Phone: 12-10-2021 13:35-0400 SaO2% (BldA) [Mass fraction] 99 % [facility] Work Phone: 12-06-2021 16:56-0400 Body temperature 98.1 [degF] [facility] Work Phone: 12-06-2021 16:56-0400 Diastolic blood pressure 63 mm[Hg] [facility] Work Phone: 12-06-2021 16:56-0400 Heart rate 72 /min [facility] Work Phone: 12-06-2021 16:56-0400 Respiratory rate 16 /min [facility] Work Phone: 12-06-2021 16:56-0400 SaO2% (BldA) [Mass fraction] 96 % [facility] Work Phone: 12-06-2021 16:56-0400 Systolic blood pressure 135 mm[Hg] [facility] Work Phone: 12-06-2021 14:57-0400 Body mass index (BMI) [Ratio] 29.7 kg/m2 [facility] Work Phone: 05-03-2022 14:57-0400 Body weight 91.17 kg [facility] Work Phone: 12-01-2021 02:25-0400 Diastolic blood pressure 81 mm[Hg] [facility] Work Phone: 12-01-2021 02:25-0400 Heart rate 61 /min [facility] Work Phone: 12-01-2021 02:25-0400 Respiratory rate 18 /min [facility] Work Phone: 12-01-2021 02:25-0400 SaO2% (BldA) [Mass fraction] 100 % [facility] Work Phone: 12-01-2021 02:25-0400 Systolic blood pressure 127 mm[Hg] [facility] Work Phone: 12-01-2021 00:49-0400 Body height 175.26 cm [facility] Work Phone: 12-01-2021 00:49-0400 Body mass index (BMI) [Ratio] 30.1 kg/m2 [facility] Work Phone: 12-01-2021 00:49-0400 Body temperature 97.8 [degF] [facility] Work Phone: 12-01-2021 00:49-0400 Body weight 92.5 kg [facility] Work Phone: Encounters Encounter Date Encounter Type Care Provider Facility Start: 04-28-2025 ambulatory Elmer Gillette Facility:[facility] Start: 03-31-2025 ambulatory Huseyin West [place] Start: 03-31-2025 ambulatory Huseyin West NP Facility :[facility] Start: 03-05-2025 End: 03-05-2025 Patient encounter procedure Huseyin West FLAT FOLDER-C -[facility] Work Phone: Start: 03-05-2025 End: 03-05-[address] Elmer Gillette MD Work Phone: -[facility] Start: 02-18-2025 End: 02-18-2025 Non-patient / Non-visit Dr. Kamaljit Hendricks MD -[facility] Work Phone: Start: 02-18-2025 End: 02-18-[address] Elmer Gillette MD Work Phone: -Pulmonary Services/Neurology Start: 02-18-2025 End: 02-18-[address] Elmer Gillette MD -Pulmonary Services/Neurology Work Phone: Start: 02-18-2025 End: 02-18-2025 ambulatory Elmer Chi Melquiades Facility:[facility] Start: 02-16-2025 End: 02-16-[address] Elmer Gillette MD Work Phone: -Laboratory Phy Office 3rd Flr Start: 02-16-2025 End: 02-16-[address] Elmer Gillette MD -Laboratory Phy Office 3rd Hir Start: 02-16-2025 End: 02-16-2025 ambulatory Elmer Chi Melquiades Facility:[facility] Start: 11-11-2024 End: 11-11-[address] Jared Padilla MD -[facility] Work Phone: Start: 11-11-2024 End: 11-11-2024 ambulatory Elmer Chi Melquiades [place] Start: 11-10-2024 End: 11-10-[address] Elmer Gillette MD Work Phone: [facility] Work Phone: Start: 11-10-2024 End: 11-10-[address] Elmer Gillette MD -Ultrasound, [facility] Work Phone: Start: 11-10-2024 End: 11-10-2024 ambulatory Elmer Chi Melquiades Facility:[facility] Start: 10-03-2024 End: 10-03-[address] Elmer Gillette MD Work Phone: [facility] Work Phone: Start: 10-03-2024 End: 10-03-[address] Elmer Gillette MD -Ultrasound, [facility] Work Phone: Start: 10-03-2024 End: 10-03-2024 ambulatory Elmer Gillette Facility:[facility] Start: 09-29-2024 End: 09-29-[address] Elmer Gillette MD Work Phone: [facility] Work Phone: Start: 09-29-2024 End: 09-29-2024 Patient encounter procedure Jared Padilla MD -Laboratory Work Phone: Start: 09-29-2024 End: 09-29-2024 ambulatory Elmer Gillette Facility:[facility] Start: 09-19-2024 Encounter for other [facility]ced[facility] Start: 09-15-2024 End: 09-15-[address] Kamaljit Koehler MD -Laboratory Work Phone: Start: 09-15-2024 End: 09-15-2024 ambulatory Kamaljit Koehler Facility:[facility] Start: 09-10-2024 End: 09-10-2024 Patient encounter procedure Migdalia Dunlap PA-C -Laboratory Work Phone: Start: 09-10-2024 End: 09-10-2024 ambulatory Elmer Gillette Facility:[facility] Start: 09-03-2024 End: 09-03-[address] Kamaljit Koehler MD -Laboratory Work Phone: Start: 09-03-2024 End: 09-03-[address] Kamaljit Koehler MD -[facility] Work Phone: Start: 09-03-2024 End: 09-03-2024 ambulatory Kamaljit Koehler [place] Start: 09-03-2024 End: 09-03-2024 ambulatory Kamaljit Koehler Facility:[facility] Start: 08-22-2024 Non-patient / Non-visit Dr. Kamaljit Koehler MD -[facility] Start: 08-22-2024 End: 08-22-2024 Admission to same day surgery center Dr. Kamaljit Koehler MD -Surgical Day Care Start: 08-22-2024 End: 08-22-2024 ambulatory Kamaljit Koehler Facility:[facility] Start: 08-15-2024 End: 08-15-2024 ambulatory Kamaljit Ruthie Facility:[facility] Start: 08-15-2024 End: 08-15-2024 Non-patient / Non-visit Dr. Kamaljit Hendricks MD -[facility] Work Phone: Start: 08-01-2024 End: 08-01-[address] Kamaljit Koehler MD -[facility] Work Phone: Start: 08-01-2024 End: 08-01-2024 ambulatory Kamaljit Koehler Facility:[facility] Start: 07-17-2024 End: 07-17-[address] Kamaljit Koehler MD -Nuclear Medicine, [facility] Work Phone: Start: 07-17-2024 End: 07-17-2024 ambulatory Kamaljit Koehler Facility:[facility] Start: 06-13-2024 End: 06-13-[address] Elmer Gillette MD -Laboratory, Phy Office 3rd Flr Start: 06-13-2024 End: 06-13-2024 ambulatory [facility] Melquiades Facility:[facility] Start: 06-10-2024 End: 06-10-2024 ambulatory Kamaljit Koehler Facility:[facility] Start: 05-29-2024 End: 05-29-2024 ambulatory [facility] Facility:[facility] Start: 05-13-2024 End: 05-13-2024 ambulatory [facility] Melquiades Facility:[facility] Start: 11-14-2023 End: 11-14-2023 ambulatory [facility] Work Phone: Start: 11-14-2023 End: 11-14-2023 Patient encounter procedure [facility] Work Phone: Start: 10-25-2023 End: 10-25-2023 ambulatory [facility] Work Phone: Start: 10-25-2023 End: 10-25-2023 Patient encounter procedure [facility]-Outpatient Bone Densitometry Work Phone: Start: 09-26-2023 End: 09-26-2023 Patient encounter procedure [facility]-Laboratory, Phy Office 3rd Flr Start: 09-24-2023 End: 09-24-2023 ambulatory [facility] Work Phone: Start: 09-24-2023 End: 09-24-2023 Patient encounter procedure [facility]-Laboratory, Specimen Work Phone: Start: 09-13-2023 End: 09-13-2023 Patient encounter procedure [facility] Work Phone: Start: 07-02-2023 End: 07-03-2023 ambulatory ANGELY HALL MD Facility:[facility] Start: 07-02-2023 End: 07-02-2023 Patient encounter procedure ANGELY HALL MD [facility] Start: 03-03-2022 Non-patient / Non-visit [facility] Start: 03-03-2022 End: 03-03-2022 Patient encounter procedure [facility]-Cardiovascular Services Start: 02-09-2022 Registered [facility] Oncology Start: 02-09-2022 End: 02-09-2022 Patient encounter procedure [facility] Start: 12-10-2021 End: 12-10-2021 Emergency department patient visit [facility]-Emergency Department Start: 12-08-2021 End: 12-08-2021 Patient encounter procedure [facility]-Pulmonary Services/Neurology Start: 12-08-2021 Non-patient / Non-visit [facility] Start: 12-06-2021 End: 12-06-2021 Admission to same day surgery center [facility]-Surgical Day Care Start: 12-01-2021 End: 12-01-2021 Emergency department patient visit [facility]-Emergency Department Start: 06-26-2018 Emergency department patient visit HUSEYIN RILEY [facility] ([place]) Procedures Date Procedure Procedure Detail Performing [...] Phone: Start: 10-25-2023 Dual energy X-ray absorptiometry [facility] Start: 12-10-2021 CT of abdomen and pe lvis without contrast Start: 12-06-2021 Fluoroscopic guidance Start: 12-01-2021 CT of abdomen and pe lvis without contrast Start: 04-22-2003 History of placement of stent for coronary artery disease History of coronary artery stent placement Huseyin West FLAT FOLDER-C Comment on above: 3 stents to RCA 04/22 Plan of Treatment Date Care Activity Detail Author Start: 11-10-2024 Liver elastography w/o imag w/i&r LIVER ELASTOGRAPHY [facility] Start: 08-22-2024 Anes esoph thyrd larynx trach & lymph neck 1yr ANESTH NECK ORGAN 1YR/> [facility] Start: 08-22-2024 Parathyroidectomy/exploration parathyroids EXPLORE PARATHYROID GLANDS [facility] Start: 08-22-2024 Patient discharge [facility] Start: 12-06-2021 Patient discharge [facility] Work Phone: Start: 12-06-2021 End: 12-06-2021 [facility] Work Phone: Start: 12-06-2021 Ambulation without limitation [facility] Work Phone: Start: 12-06-2021 Medication education [facility] Work Phone: Start: 12-06-2021 Taking patient vital signs [facility] Work Phone: Start: 12-06-2021 Anes transurethral w/urethrocystoscopy nos ANESTH BLADDER SURGERY [facility] Work Phone: Start: 12-06-2021 Cysto w/insert ureteral stent CYSTOSCOPY AND TREATMENT [facility] Work Phone: DXA Bone [Mass/Area] Bone density [facility] Electrocardiographic procedure [facility] NM Heart Views W str ess and W radionuclide IV [facility] Patient Education ED Kidney Ston e w/ Colic [facility] Work Phone: Patient referral [facility] Work Phone: Immunizations Immunization Date Immunization Notes Care Provider Rema acosta 05-04-2014 tetanus and diphther ia toxoids, adsorbed, preservative free, for adult use (2 Lf of tetanus toxoid and 2 Lf of diphtheria toxoid) [facility] Payers Date Payer Category Payer Self-pay [id number] 2023 Medicare [id number] 2023 Unknown [id number] 2011 Medicare [id number] 1945 Unknown [id number] 2.16.8 40.1.346827.3.579.2.627 Unknown [id number] 2.16.8 40.1.018476.3.579.2.462 Unknown [id number] 2.16.8 40.1.887830.3.579.2.462 Unknown [id number] 2.16.8 40.1.828015.3.579.2.462 Unknown [id number] 2.16.8 40.1.652280.3.579.2.462 Unknown [id number] 2.16.8 40.1.439668.3.579.2.462 Unknown [id number] 2.16.8 40.1.816953.3.579.2.462 Unknown [id number] 2.16.8 40.1.331204.3.579.2.462 Unknown [id number] 2.16.8 40.1.355492.3.579.2.462 Unknown [id number] 2.16.8 40.1.204309.3.579.2.462 Unknown [id number] 2.16.8 40.1.044976.3.579.2.462 Unknown [id number] 2.16.8 40.1.437636.3.579.2.462 Unknown [id number] 2.16.8 40.1.127437.3.579.2.462 Unknown [id number] 2.16.8 40.1.000584.3.579.2.462 Unknown [id number] 2.16.8 40.1.238284.3.579.2.462 Unknown [id number] 2.16.8 40.1.713605.3.579.2.462 Unknown [id number] 2.16.8 40.1.347786.3.579.2.462 Unknown [id number] 2.16.8 40.1.085560.3.579.2.462 Unknown [id number] 2.16.8 40.1.997854.3.579.2.462 Unknown [id number] 2.16.8 40.1.889769.3.579.2.462 Unknown [id number] 2.16.8 40.1.305011.3.579.2.462 Unknown [id number] 2.16.8 40.1.772970.3.579.2.462 Unknown [id number] 2.16.8 40.1.039205.3.579.2.462 Unknown [id number] 2.16.8 40.1.532462.3.579.2.462 Unknown [id number] 2.16.8 40.1.150899.3.579.2.462 Social History Date Type Detail Facility Start: 12-01-2021 End: 09-13-2023 Tobacco smoking status NHIS Unknown if ever smoked [facility] Start: 04-18-2015 None [facility] Start: 04-18-2015 Spouse/ Signif icant Other [facility] Start: 05-26-2020 Non-smoker [facility] Start: 1945 Sex Assigned At Male A [facility] Tobacco smoking status No Smoking Status Entered [facility] Start: 08-14-2024 End: 08-14-2024 Tobacco smoking status NHIS Never smoked tobacco (finding) [facility] Start: 10-11-2024 End: 11-13-2024 Sex Male (finding) [facility] Medical Equipment Procedure Code Equipment Code Equipment Original Text Equipment Identifier Dates Parathyroidectomy DRESSING,SURGI CE L 4x8 FDA Start: 08-22-2024 Parathyroidectomy Ligation clip, metallic ()[id number] FDA Start: 08-22-2024 Parathyroidectomy Ligation clip, metallic ()[id number] [id number] FDA Start: 08-22-2024 Parathyroidectomy DRESSING,SURGI CE [...] Assessment Result Facility 08-22-2024 Cognitive function Voice/Name [facility] Work Phone: 11-14-2023 Cognitive function Awake;Alert;A ppropriate;Fol lows Commands [facility] Work Phone: 12-06-2021 Cognitive function Voice/Name [facility] Work Phone: Clinical Notes 07-02-2023 to 02-17-2025 Note Date & Type Note Facility 02-17-2025 Radiology Diagnostic study note [facility] Imaging Services [address] [place] [address] Chest PA and Lateral MR#: [id number] Acct: [id number] Name: YAHAIRA MORFIN Rep #: [id number] : 1945 M 79 From: Pau Metcalf MD PCP: Dr. Elmer Gillette MD Status: REG C ANISH Study:Chest PA and Lateral Date of Exam: 02/16/25 Exam# [id number] Ordering Dr: Elmer Gillette MD PROCEDURE: CHEST PA AND LATERAL 02/16/2025 REASON FOR EXAM: CHEST PAIN TECHNIQUE: CHEST PA AND LATERAL COMPARISON: No FINDINGS: Normal heart size. Well inflated lungs. No consolidation, effusion, or pneumothorax. RAD/Chest PA and Lateral IMPRESSION: No acute findings Reading Location: RAD-METCALF-2 CC: Dr. Elmer Gillette MD ~ President & Ceo: Signed [facility] 11-11-2024 Evaluation note Diagnosis Onset Date Resolution Osteoporosis chronic November 11, 025 7:49am Status post parathyroidectomy chronic November 11 7:49am [facility] Work Phone: 1(197) 157-333004-08-2025 Evaluation note* Diagnosis Onset Date Resolution Status Admit Date Osteoporosis chronic November 11, 025 7:49am Status post parathyroidectomy inacti ve November 11, 2024 7:49am Dyspnea on exertion acute March 05, 2025 7:57am History of coronary artery stent placement April 22, 2003 chronic March 05, 2025 7:57am Hyperlipidemia chronic March 05, 2025 7:57am Hypertension chronic March 05 025 7:57am [facility] Work Phone: 1(799) 114-871604-07-2025 Radiology Diagnostic study note [facility] Imaging Services [address] [place] [address] Elastography Parenchyma/Organ MR#: [id number] Acct: [id number] Name: YAHAIRA MORFIN Rep #: [id number] : 1945 M 78 From: Radha Moore MD PCP: Dr. Elmer Gillette MD Status: PATRICIO C ANISH Study:Elastography Parenchyma/Organ Date of Rajesh xam: 11/10/24 Exam# [id number] Ordering Dr: Elmer Gillette MD PROCEDURE: ELASTOGRAPHY PARENCHYMA/ORGAN (USELPAROG), 11/10/2024 REASON FOR EXAM: ELEVATED LIVER ENZYMES COMPARISON: 10/03/2024 TECHNIQUE: Soci Ads S-shear wave elastography was performed for non-invasive [...] (15kPa): Significant fibrosis / cirrhosis Reading Location: BRY[facility] CC: Dr. Elmer Gillette MD ~ President & Ceo: Signed [facility]02-28-2025 Radiology Diagnostic study note [facility] Imaging Services [address] [place], [place] [id number] Abdomen Limited MR#: [id number] Acct: [id number] Name: YAHAIRA MORFIN Rep #: [id number] : 1945 M 78 From: Sancho Ayers MD PCP: Dr. Elmer Gillette MD Status: PATRICIO OCONNELL Study:Abdomen Limited Date of Exam: 09/07 03/30 Exam# [id number] Ordering Dr: Elmer Gillette MD PROCEDURE: ABDOMEN [...] and nonobstructive right intrarenal calculus. Reading Location: [id number] CC: Dr. Elmer Gillette MD ~ President & Ceo: Signed [facility]01-17-2025 [facility] Medical Records Department [address] [place] [address] History Physical Exam 08/22/24 0648 MR#: [id number] Acct: [id number] Name: YAHAIRA MORFIN Rep #: [id number] : 1945 78 From: Kamaljit Koehler MD PCP: Dr. Elmer Gillette MD Status:[facility] Location: [place] [address] History and Physical Date of Admission: 08/22/24 Date of Service: 08/01/24 MR#: [id number] Acct: [id number] Name: YAHAIRA MORFIN Rep #: [id number] : 1945 Provider: Dr. Kamaljit Koehler MD Age/Sex: 78/M Location: [facility] Status: Signed Intake Vital Signs 06/10/2412:58 08/01/2408:11 Height 5 ft 9 in 5 ft 9 in Weight: 195 lb 193 lb BMI 28.8 28.5 BP 143/74 H 162/69 H Blood Pressure Location Rt brachial Rt brachial Position Sitting Sitting Respiration 18 16 Intake Visit Reasons: DISCUSS SURGERY Chief Complaint: discuss results and surgery [employer] Supervisor Required: No Is patient in pain?: No [...] 08/01/24 History mcg (1,000 unit) tablet omega 3-gbv-ffv-fish oil 1,200 mg cap PO BID 05/13/24 08/01/24 History (144 mg-216 mg) capsule (Fish Oil) Have you fallen in the past year?: No PFSH Medical History COVID-19 ( 09/2022) MARLYS on CPAP Vitamin D deficiency Atherosclerosis of coronary artery of [place] heart without angina pectoris Primary hyperparathyroidism History [...] following result: 1. ABNORMAL 99m Tc SESTAMIBI [id number] PARATHYROID IMAGING DUAL PHASE EXAMINATION. 2. The [...] him falling asleep in his chair), negatively: patient registration rep of arthritis or myalgias, no muscle weakness, and no memory or concentration difficulty (more content not included)...[facility]12-27-2024 Evaluation note* Diagnosis Onset Date Resolution Status Admit Date Primary hyperparathyroidism chronic August 01, 2024 8:06am Hypoparathyroidism after procedure acute September 03 10:02am Status post parathyroidectomy acute September 03, 2024 10:02am [facility] Work Phone: 1(456) 843-978512-27-2024 Evaluation note* Diagnosis Onset Date Resolution Status Admit Date Primary hyperparathyroidism chronic August 01, 2024 8:06am Hypoparathyroidism after procedure acute September 03 10:02am Status post parathyroidectomy chroni c September 03, 2024 10:02am Osteoporosis chronic November 11, 025 7:49am Status post parathyroidectomy chroni c November 11, 2024 7:49am [facility] Work Phone: 1(214) 440-713811-27-2023 Note ORIGINAL EXAMINATION: RIGHT UPPER QUADRANT ULTRASOUND [...] Sign Date: 07/02/2023 11:35:30 AM [facility] No data available for this section [facility] Evaluation noteNo assessment information available [facility] Work Phone: Evaluation note* Diagnosis Onset Date Resolution Status History of deep vein thrombosis of lower extremity chronic [facility] Work Phone: Evaluation note* Diagnosis Onset Date Resolution Status Kidney stones chronic Primary hyperparathyroidism chronic [facility] Work Phone: Hospital Discharge instructions Additional Instructions Please follow-up with urology to discuss need for possible stent placement secondary to your kidney stone. Please return to the ER should you develop a fever over 100.4 or your pain is not [facility] Work Phone[facility] Work Phone[facility] Work Phone: Hospital Discharge instructions No data available for this section [facility] Progress note No data available for this section [facility] Reason for referral (narrative)No reason for referral information availableWHolzer [facility] Work Phone: Summary Purpose Family History No [...] Yes December 01, 2021 12:52am Power of Crop Consultant No December 01 12:52am Advance Directive Response Recorded Date/ Time Advance Directives Yes April 12:42am Living Will No December 06, 2021 2: 57pm Power of Crop Consultant No December 06, 2021 2:57pm Advance Directive Response Recorded Date/ Time Advance Directives Yes April 11:42pm Living Will No December 06, 2021 1: 57pm Power of Crop Consultant No December 06, 2021 1:57pm Advance Directive Response Recorded Date/ Time Living Will Yes August 14 1:38pm Power of Crop Consultant Yes August 14 025 1:38pm Name of Medical Power of Crop Consultant DTR August 14, 2024 1:38pm Advance Directives Yes April 11:42pm Advance Directive Response Recorded Date/ Time Living Will Yes August 14 2:38pm Power of Crop Consultant Yes August 14 2:38pm Name of Medical Power of Crop Consultant DTR August 14, 2024 2:38pm Advance Directives Yes April 12:42am Advance Directive Response Recorded Date/ Time Living Will No December 06, 2021 2: 57pm Do you have a Healthcare Power of Crop Consultant? No December 06, 2021 2:57pm Living Will Yes August 14 2:38pm Do you have a Healthcare Power of Crop Consultant? Yes August 14, 2024 2:38pm Name of Medical Power of Crop Consultant DTR August 14, 2024 2:38pm Advance Directives Yes April 12:42am Advance Directive Response Recorded Date/ Time Living Will No December 06, 2021 2: 57pm Do you have a Healthcare Power of Crop Consultant? No December 06, 2021 2:57pm Advance Directives [...] Primary hyperparathyroidism July 8:06am Hypoparathyroidism after procedure Janua 2024 10:02am Status post parathyroidectomy September 032024 [...] section and content) DATE CREATED AUTHOR 02/02/2018 [facility] ([place]) DATE CREATED AUTHOR AUTHOR'S ORGANIZ ATION 07/04/2023 [facility] ([place]) DATE CREATED AUTHOR AUTHOR'S ORGANIZ ATION 03/31/2025 [facility] Goals (unrecognized section and content) [...] November 10, 2024 Dr. Elmer Gillette MD Attending Provider Active Start: November 10, [...] Team Status: Active Member Role Status Dates [facility] Family Provider Active Dr. Elmer Gillette MD Primary Care Provider Active Team Status: Inactive Member Role Status Dates [facility] Referring Provider Active Dr. Jared Padilla MD [...] BE BASED ON THE PRIMARY CLINICAL RECORDS. [employer] provides no warranty or guarantee of the accuracy or completeness of information in this document.
[2025-04-01 04:45] LABS: Hematocrit 47.4 % (40-54); Hemoglobin 16.8 g/dL (13.0-16.5); Immature Granulocytes Count 0.010 X10^3/uL (0.0-0.0); Mean Corp Hgb Conc 35.4 g/dL (32-36); Mean Corpuscular Volume 92.2 fL (80-94); Mean Platelet Vol. 9.3 fl (6.2-12.0); NRBC Flagged by Analyzer 0 % (0-5); POSITIVE DIFFERENTIAL YES; Platelet Count 164 K/mm3 (150-450); RBC Distribution Width CV 12.6 % (11.6-14.6); RBC Distribution Width SD 42.7 fl (35.1-43.9); Red Blood Count 5.14 M/mm3 (4.6-6.2); White Blood Count 4.2 K/mm3 (4.4-11.0)
[2025-04-01 04:59] LABS: Prothrombin Time (Protime)PT. 14.4 SECONDS (11.7-14.9)
[2025-04-01 05:00] LABS: Partial Thromboplast Time 27.0 Seconds (24.1-36.2)
--- NOTE | 2025-04-01 05:00 | CT_ITS ---
PROCEDURE: ABDOMEN/PELVIS W IV CONT ONLY 04/01/2025 REASON FOR EXAM: DIFFUSE PAIN, FEVER TECHNIQUE: ABDOMEN/PELVIS W IV CONT ONLY Coronal and Sagittal reconstruction series were provided. CONTRAST: 97 cc Isovue 370 One or more dose reduction techniques were used (e.g., Automated exposure control, adjustment of the mA and/or kV according to patient size, use of iterative reconstruction technique. RADIATION DOSE SUMMARY: DLP: 1098 mGycm COMPARISON: December 11, 2019 FINDINGS: Lung bases: Clear Liver: There is a 1.5 x 1.0 cm cyst in the left hepatic lobe, unchanged. Gallbladder: There is a 0.3 cm calcified stone in the dependent portion of the gallbladder. There is no gallbladder wall thickening or pericholecystic inflammation. Spleen: Unremarkable Pancreas: Unremarkable Adrenals: The right adrenal is normal. There is a 0.8 cm nodule in the left adrenal, Hounsfield units = 71, unchanged. Kidneys: There is a 1 cm cyst in the midpole of the right kidney. There is a 1.4 cm cyst at the upper pole of the left kidney. There is a 0.25 cm nonobstructing stone in the midpole of the right kidney. There is a 0.4 cm nonobstructing stone in the midpole of the left kidney. Bladder: Unremarkable Reproductive Organs: The prostate is heterogeneously enlarged, with calcifications noted. Bowel: Gas and stool is noted in the colon. There is diverticulosis of the sigmoid colon with no visible acute diverticulitis. The small bowel loops are not distended. Appendix: The appendix is dilated to 0.9 cm in diameter, with periappendiceal inflammation. Lymph nodes: There is no pathologic adenopathy by size criteria. Vasculature: Atherosclerotic calcifications are noted. Peritoneum / Retroperitoneum: There is no free air or free fluid. Bones: There is no acute bony abnormality. CT/Abdomen/Pelvis W IV Cont ONLY IMPRESSION: There is a 0.8 cm nodule in the left adrenal, Hounsfield units = 71, unchanged. Cholelithiasis. There is a 0.25 cm nonobstructing stone in the midpole of the right kidney. The re is a 0.4 cm nonobstructing stone in the midpole of the left kidney. The prostate is heterogeneously enlarged, with calcifications noted. The appendix is dilated to 0.9 cm in diameter, with periappendiceal inflammatio n, acute appendicitis. Critical results were discussed with Dr. Crook by Dr. Montero at the time o f dictation. Reading Location: [facility]
--- NOTE | 2025-04-01 05:05 | RAD_ITS ---
PROCEDURE: CHEST 1 VIEW (PORTABLE) 04/01/2025 REASON FOR EXAM: FEVER TECHNIQUE: Frontal view of the chest. COMPARISON: February 16, 2025 FINDINGS: Heart size is upper normal. Central vascularity appears normal. There is no focal infiltrate or consolidation. There is no pneumothorax or effusion. There is no acute bony abnormality. Aortic calcifications are visible. RAD/Chest 1 View (Portable) IMPRESSION: No acute process is identified in the chest. Reading Location: [facility]
[2025-04-01 05:19] LABS: AST(SGOT) 23 U/L (<=37); Alanine Aminotransfer ALT/SGPT 26 U/L (<=46); Albumin, Serum 4.3 g/dL (3.4-4.8); Alkaline Phosphatase 68 U/L (40-129); Anion Gap 18 (5-15); BUN 16 mg/dL (4-19); BUN/Creat Ratio 12.1 RATIO (10-20); Calcium,Total 9.7 mg/dL (7.6-11.0); Carbon Dioxide 18.7 mmol/L (21.0-32.0); Chloride 102 mmol/L (98-108); Estimated Creatinine Clearance 50.10 ml/min (50-250); Globulin 2.7 g/dL (2.2-4.2); Glucose 117 mg/dL (70-99); Lipase 32 U/L (13-75); Potassium 4.1 mmol/L (3.3-5.1); Troponin T High Sensitivity 9 ng/L (<=22)
[2025-04-01 05:41] LABS: Mucous, Urine 0 SEEN /hpf (<or=2+); Red Blood Cells-Urine 0 SEEN /hpf (0-5); Squamous Epithelial Cells - UA 0 SEEN /hpf (0-5)
[2025-04-01 05:44] LABS: Color, Urine Yellow (Yellow); Glucose, Dipstick Normal (Normal); Ketone-Dipstick 5 mg/dl (Negative); Leukocyte Esterase-Dipstick Negative /ul (Negative); Nitrite-Dipstick Negative (Negative); Occult Blood-Urine Negative /ul (Negative); Protein-Dipstick 30 mg/dl (Negative); Specific Gravity, Urine 1.010 (1.002-1.030); Urine Bilirubin Dipstick Negative (Negative)
[2025-04-01] MEDS: Piperacil/Tazobactam 4.5 GM in 0.9% Normal Saline (100mL MB+) 100 ML IV (06:42)
--- NOTE | 2025-04-01 07:21 | PCM.HP.STD ---
HPI - General HPI Narrative YAHAIRA PÉREZ, is a 79 M who presents with abdominal pain that started yesterday. He reports that the pain started all over and now it is in his lower abdomen. He reports he does feel dehydrated. He reports nausea but no vomiting. He had a stress test yesterday which is when the pain started. He does have a low-grade fever. [facility] Medical History Osteoporosis Wears hearing aid Wears dentures Wears glasses High cholesterol Non-smoker CPAP (continuous positive airway pressure) dependence Sleep apnea Cardiology follow-up encounter COVID-19 (~09/2022) MARLYS on CPAP Vitamin D deficiency Atherosclerosis of coronary artery of [place] heart without angina pectoris Primary hyperparathyroidism History of deep vein thrombosis of lower extremity Kidney stones Condyloma acuminata Hyperlipidemia Hyperparathyroidism RLS (restless legs syndrome) Sleep apnea Dog bite DVT (deep venous thrombosis) Home Medications ?Medication ?Instructions ?Recorded ?Last Taken ?Type metoprolol tartrate 25 mg tablet 25 mg PO BID ##0 04/19/15 08/21/24 Rx aspirin 81 mg tablet,delayed 81 mg PO DAILY 09/03/23 08/21/24 History release rosuvastatin 40 mg tablet 40 mg PO DAILY 09/03/23 08/21/24 History ascorbic acid (vitamin C) 500 mg 500 mg PO DAILY 12/11/23 08/21/24 History capsule amlodipine 5 mg tablet 5 mg PO DAILY 12/27/23 08/21/24 History cholecalciferol (vitamin D3) 25 50 mcg PO DAILY 05/13/24 08/21/24 History mcg (1,000 unit) tablet multivitamin (Daily Multi-Vitamin 1 tab PO DAILY 08/14/24 08/21/24 History tablet) omega-3 fatty acids 1,000 mg 1,000 mg PO BID 03/05/25 Unknown History capsule pantoprazole 40 mg tablet,delayed 40 mg PO QDAY 03/05/25 Unknown History release Allergy/AdvReac Type Severity Reaction Status Date / Time No Known Allergies Allergy Verified 04/01/25 04:27 Family History Mother Breast cancer Alzheimer disease Sister Breast cancer Myocardial infarction Father Myocardial infarction Alcohol abuse Surgical History Status post parathyroidectomy History of colonoscopy (06/02/20) History of coronary artery stent placement (04/22/03) s/p shrapnel removal S/P hernia repair Status post hemorrhoidectomy Social History Smoking Status: Never smoker alcohol intake: never substance use type: does not use caffeine: Yes Type: coffee Number of servings: 2 Vital Signs Vital Signs Vital Signs: 04/01/25 04:21 04/01/25 04:23 04/01/25 04:31 Temperature 100 F H 100 F H Temperature Source Oral Oral Pulse Rate 125 H 125 H Respiratory Rate 18 19 H Blood Pressure 144/90 H 144/90 H Blood Pressure Mean 108 108 Pulse Ox 97 97 99 Oxygen Delivery Method Room Air Room Air Room Air 04/01/25 05:00 04/01/25 06:21 Temperature 100 F H 99.8 F H Temperature Source Oral Oral Pulse Rate 107 H 103 H Respiratory Rate 18 22 H Blood Pressure 116/70 103/70 Blood Pressure Mean 85 81 Pulse Ox 94 94 Oxygen Delivery Method Room Air Room Air Weight Weight: 196 lb 6.91 oz Body Mass Index (BMI) 29.0 Physical Exam Const oriented x3 and no apparent distress Resp normal respiratory effort GI soft to palpation Palpation: tender RLQ Extremity normal to inspection Results Lab / Micro Data 04/01/25 04:30 04/01/25 04:30 Labs: Laboratory Results - last 24 hr 04/01/25 04:30: WBC 4.2 L, RBC 5.14, Hgb 16.8 H, Hct 47.4, MCV 92.2, MCH 32.7 H, MCHC 35.4, RDW Std Deviation 42.7, RDW Coeff of Tommie 12.6, Plt Count 164, MPV 9.3, Immature Gran % (Auto) 0.200, Neut % (Auto) 88.9 H, Lymph % (Auto) 8.0 L, Craig % (Auto) 0.7, Eos % (Auto) 1.7, Baso % (Auto) 0.5, Absolute Neuts (auto) 3.8, Absolute Lymphs (auto) 0.34 L, Nucleated RBC % 0, PT 14.4, INR 1.1, APTT 27.0, Sodium 139, Potassium 4.1, Chloride 102, Carbon Dioxide 18.7 L, Anion Gap 18 H, BUN 16, Creatinine 1.32 H, Estim Creat Clear Calc 50.10, Est GFR (MDRD) Non-Af 55 L, BUN/Creatinine Ratio 12.1, Glucose 117 H, Lactic Acid 4.2 H*, Calcium 9.7, Total Bilirubin 1.10, AST 23, ALT 26, Alkaline Phosphatase 68, Troponin T High Sens 9 D, Total Protein 7.0, Albumin 4.3, Globulin 2.7, Albumin/Globulin Ratio 1.6, Lipase 32 04/01/25 05:34: Urine Color Yellow, Urine Clarity Clear, Urine pH 6.5, Ur Specific [place] 1.010, Urine Protein 30 H, Urine Glucose (UA) Normal, Urine Ketones 5 H, Urine Occult Blood Negative, Urine Nitrite Negative, Urine Bilirubin Negative, Urine Urobilinogen Normal, Ur Leukocyte Esterase Negative, Urine RBC 0 SEEN, Urine WBC 0 SEEN, Ur Squamous Epith Cells 0 SEEN, Urine Bacteria 0 SEEN, Hyaline Casts 0-5 SEEN, Urine Mucus 0 SEEN Rhythm Strip Rhythm Strip: Sinus Tach Rate: 120 Ectopy: None Imaging Radiology Impression Abdomen/Pelvis CT 04/01/25 05:00 IMPRESSION: There is a 0.8 cm nodule in the left adrenal, Hounsfield units = 71, unchanged. Cholelithiasis. There is a 0.25 cm nonobstructing stone in the midpole of the right kidney. There is a 0.4 cm nonobstructing stone in the midpole of the left kidney. The prostate is heterogeneously enlarged, with calcifications noted. The appendix is dilated to 0.9 cm in diameter, with periappendiceal inflammation, acute appendicitis. Critical results were discussed with Dr. Crook by Dr. Montero at the time of dictation. Reading Location: [facility] Chest X-Ray 04/01/25 05:05 IMPRESSION: No acute process is identified in the chest. Reading Location: [facility] Assessment & Plan Assessment/Plan (1) Acute appendicitis: QUALIFIERS: Acute appendicitis type: unspecified acute appendicitis type Qualified Code(s): K35.80 - Unspecified acute appendicitis PLAN: The patient has lower abdominal pain. CT scan revealed inflammation around the appendix which is dilated. The patient has been started on antibiotics. I discussed laparoscopic appendectomy with the patient and his . I discussed the procedure in detail and answered all questions. I discussed the risks including but not limited to bleeding, infection, injury to other organs such as the bladder, bowel, ureter. Patient understands all the risks and is willing to proceed. I will admit the patient to the floor until OR. (2) Sepsis: PLAN: Patient has elevated lactate, leukopenia, elevated creatinine. Blood cultures are pending. Continue antibiotics after surgery. Finn Romano MD Pager: [facility] [address] [place] [address] Office:
[2025-04-01 07:45] LABS: Troponin T High Sens 2 HR 19 ng/L (<=22)
--- OUTSIDE RECORDS SUMMARY | 2025-04-01 08:14 | XMS RPT_ITS | CCD ---
Author Organization [facility] CliniSypr Care Team Providers Care Long Lines Operator Name Role Phone HUSEYIN RILEY [place], [place] Primary Care Provider UnavailDr. Yeni Mathew Attending Provider [phone] Dr. Obdulio Smith Referring Provider Dr. Drake Monique Attending Provider Dr. Thad Alonzo Attending Provider PHYSICIAN, NONE Primary Care Physician Unavail lore HALL MD, [facility] Attending [facility] PHYSICIAN, NONE Primary Care [facility], [place] Referring Provider Unavailable Dr. Jared Padilla Attending Provider Dr. Elmer Arnett Chi Primary Care Provider [place], [place] Referring Provider Unavailable Dr. Jared Padilla Attending Provider [phone] Dr. Elmer Arnett Chi Primary Care Provider Dr. Elmer Arnett MD, Chi Primary Care Provider [phone] Dr. Elmer Arnett MD, Chi Attending Provider Dr. Kamaljit Koehler MD Attending Provider Dr. Kamaljit Koehler MD Referring Provider Dr. Elmer Arnett MD, Chi Referring Provider Dr. Kamaljit Hendricks [...] Dr. Elmer Multani Primary Care Provider [phone] Rodo LAWRENCE, Dr. Mari Attending Provider Rodo [...] Dr. Elmer Multani Primary Care Provider [phone] Melquiades LAWRENCE, Dr. Elmer Multani Attending Provider [phone] Melquiades LAWRENCE, Dr. Elmer Multani Referring Provider Ruthie LAWRENCE, Dr. Mari Attending Provider [facility]yn[facility] Romo Attending Provider Kamaljit Koehler Attending Unavailable [...] Unavailable Melquiades, Elmer Chi Primary Care Unavailable Weeman, Live Referring Unavailable Roof ART SPECIALIST, Huseyin H Referring Unavailable Roof ART SPECIALIST, Huseyin H Consulting Unavailable Melquiades, Elmer Chi Primary Care Unavailable William Shirley Attending Unavailable Kamaljit Koehler Attending Unavailable BortzKamaljit Referring Unavailable Melquiades, Elmer Chi Primary Care Unavailable Live Muñoz Consulting Unavailable BortzKamaljit Consulting Unavailable Melquiades, Elmer Chi Primary Care Unavailable Dunlap, Migdalia Referring Unavailable Migdalia Dunlap Attending Unavailable Borgenaro, Kamaljit Attending Unavailable Bortz, Kamaljit Referring Unavailable Melquiades, Elmer Chi Primary Care Unavailable Melquiades, Elmer Chi Primary Care Unavailable Randy, Jraed Referring Unavailable Randy, Jared Attending Unavailable Melquiades, Elmer Chi Attending Unavailable Melquiades, Elmer Chi Primary Care Unavailable Melquiades, Elmer Chi Primary Care Unavailable Randy, Jared Referring Unavailable Randy, Jared Attending Unavailable Rodo, Kamaljit Attending Unavailable Borgenaro, Kamaljit Referring Unavailable Melquiades, Elmer Chi Primary Care Unavailable Live Muñoz Consulting Unavailable Roof ART SPECIALIST, Huseyin H Referring Unavailable Roof ART SPECIALIST, Huseyin H Attending Unavailable Roof ART SPECIALIST, Huseyin H Consulting Unavailable Melquiades, Elmer Chi Primary Care Unavailable Melquiades, Elmer Chi Attending Unavailable Melquiades, Elmer Chi Primary Care Unavailable Melquiades, Elmer Chi Referring Unavailable Bortz, Kamaljit Referring Unavailable Bortz, Kamaljit Attending Unavailable Melquiades, Elmer Chi Primary Care Unavailable Melquiades, Elmer Chi Primary Care Unavailable Melquiades, Elmer Chi Referring Unavailable Randy, Jared Attending Unavailable Melquiades, Elmer Chi Primary Care Unavailable Randy, Jared Attending Unavailable Melquiades, Elmer Chi Referring Unavailable Roof ART SPECIALIST, Huseyin H Attending Unavailable Melquiades, Elmer Chi Primary Care Unavailable Melquiades, Elmer Chi Referring Unavailable Melquiades , Dr. Elmer Multani Primary Care Provider Dr. Elmer Arnett MD, Chi Attending Provider Dr. Elmer Arnett MD, Chi Referring Provider [phone] Roof ART SPECIALIST-C, Huseyin Zuñiga Referring Provider [phone] Roof ART SPECIALIST-C, Huseyin Zuñiga Other Provider Casper LAWRENCE, Dr. Thomas Attending Provider Ambreen LAWRENCE, Dr. Ruiz Emergency Provider Rosalina LAWRENCE, Dr. Briseno Admit Provider [phone] Rosalina LAWRENCE, Dr. Briseno Attending Provider Medications Current Medications Medication Drug Class(es) Dates Sig (Normalized) Sig (Original) amLODIPine 5 mg oral tablet (18 sources) Dihydropyridine Calcium Channel García Start: 12-27-2023 take 1 tablet by mouth once daily Amlodipine 5 mg tablet Active 5 mg PO DAILY December 27, 2023 12:00am Start: 01-27-2022 End: 09-03-2023 take 1 tablet by mouth once daily Amlodipine 2.5 mg tablet Discontinued 2.5 mg PO DAILY January 27, 2022 12:00am September 03, 2023 12:36pm ascorbic acid 500 mg oral capsule (20 sources) Vitamin C Start: 12-11-2023 take 1 [...] L.Acid-L.Rham-B.Breve-S.Ther m (Probiotic) 3 billion cell Tablet,Chewable (14 sources) Start: 12-01-2021 take 3 tablets by [...] 11:37am Start: 12-01-2021 take 3 tablets by [facility] once daily L.Acid-L.Rham-B.Breve-S.Therm (Probiotic ) 3 [...] 19, 2015 3:44pm Multivitamin (Daily Multi-Vitamin) tablet (7 sources) Start: 08-14-2024 Multivitamin ( Daily Multi-Vitamin) tablet Active 1 {tbl} PO DAILY August 14, 2024 1:00am Start: 08-14-2024 Multivitamin ( Daily Multi-Vitamin) tablet Active 1 {tbl} PO DAILY August 14, 2024 12:00am [place]-3 Fatty Acids 1,000 mg capsule (2 sources) Start: 03-05-2025 take 1 capsule by mouth twice daily [place]-3 Fatty Acids 1,000 mg capsule Active 1000 mg PO TWICE A DAY March 05, 2025 12:00am pantoprazole 40 mg delayed release oral tablet (2 sources) Proton Pump Inhibitor Start: 03-05-2025 take 1 [...] Q4H as needed for Pain 12 2 0 December 10, 2021 March 07, 2022 3:34pm [...] HOURS as needed for pain 14 7 December 06, 2021 September 03, [...] 2015 3:47pm May 20, 2020 2:29pm calcitriol 0.84499 mg oral capsule (7 sources) Vitamin D3 Analog Start: 08-22-2024 End: 11-11-2024 take 1 capsule by mouth once daily Calcitriol 0.25 mcg capsule Discontinued 0.25 ug PO DAILY 15 15 0 August 22, 2024 1:00am November 11, 2024 7:55am Primary hyperparathyroidism Hypoparathyroidism after procedure Primary hyperparathyroidism Postprocedural hypoparathyroidism calcium carbonate 1250 mg / cholecalciferol 600 unt oral tablet (7 sources) Vitamin D Start: 08-22-2024 End: 11-11-2024 Calcium Carbonate-Vitamin D3 (Os-Carlos Eduardo 500 + D3) 500 mg-15 mcg (600 unit) tablet Discontinued 2 {tbl} PO TWICE A DAY 60 15 0 August 22, 2024 1:00am November 11, 2024 7:56am Primary hyperparathyroidism Primary hyperparathyroidism cephalexin 500 mg oral capsule (14 sources) Cephalosporin Antibacterial Start: 12-01-2021 End: 03-07-2022 [...] 2015 3:44pm clopidogrel 75 mg oral tablet (14 sources) P2Y12 Platelet Inhibitor Start: 05-22-2014 End: 11-14-2023 take 1 tablet by mouth once daily Clopidogrel 75 MG tablet Discontinued 75 mg PO DAILY May 22, 2014 12:00am November 14, 2023 1:59pm [place] 3-Jmb-Cju-Fish Oil (11 sources) Start: 02-09-2022 End: 12-11-2023 [place] 2-Xzs-Vur-Fish Oil (Fish Oil) 300-1,000 mg capsule Discontinued 1 NMA PO DAILY February 09, 2022 12:00am December 11, 2023 11:47am Start: 02-09-2022 End: 12-11-2023 [place] 8-Als-Ddy-Fish Oil (Fi sh Oil) 300-1,000 mg capsule Discontinued 1 NMA PO DAILY February 08, 2022 11:00pm December 11, 2023 10:47am Start: 02-09-2022 take 300-1000 mg by mouth once daily [place] 3-Lni-Tti-Fish Oil (Fish Oil) 300-1,000 mg capsule Active 1 CAP PO DAILY February 08, 2022 11:00pm Start: 02-09-2022 take 300-1000 mg by mouth once daily [place] 7-Qgq-Xil-Fish Oil (Fish Oil) 300-1,000 mg capsule Active 1 CAP PO DAILY February 09, 2022 12:00am lisinopril 5 mg oral tablet (20 sources) Angiotensin Converting Enzyme Inhibitor Start: 12-11-2023 [...] Acid (Adult Multivitamin Gummies) 120 mcg tablet,chewable (10 sources) Start: 09-03-2023 End: 12-11-2023 take 1 [...] TABLET PO DAILY September 03, 2023 12:00am [place] 4-Scl-Uef-Fish Oil (Fi sh Oil) 1,200 (144-216) mg capsule (7 sources) Start: 05-13-2024 End: 03-05-2025 [place] 5-Uke-Iig-Fish Oil (Fi sh Oil) 1,200 (144-216) mg capsule Discontinued 1 NMA PO TWICE A DAY May 13, 2024 12:00am March 05, 2025 8:12am Start: 05-13-2024 [place] 3-Dha-Ep a-Fish Oil (Fish Oil) 1,200 (144-216) mg capsule Active 1 NMA PO TWICE A DAY May 13, 2024 12:00am Start: 05-13-2024 [place] 3-Dha-Ep a-Fish Oil (Fish Oil) 1,200 (144-216) [...] 2015 3:44pm May 20, 2020 2:28pm prevagen (7 sources) Start: 12-11-2023 End: 05-13-2024 take 10 mg by mouth once daily prevagen Discontinued 10 mg PO DAILY December 11, 2023 12:00am May 13, 2024 8:02am Start: 12-11-2023 End: 05-13-2024 take 10 mg by mouth once daily prevagen Discontinued 1 0 mg PO DAILY December 10, 2023 11:00pm May 13, 2024 7:02am rivaroxaban 20 mg oral tablet (20 sources) Factor Xa Inhibitor Start: 09-03-2023 End: [...] 2:29pm Urinary ubidecarenone 10 mg oral capsule (11 sources) Start: 02-09-2022 End: 09-03-2023 Coenzyme Q10 10 mg capsule Discontinued 10 mg PO ONCE February 09, 2022 12:00am September 03, 2023 12:37pm 100 ml zoledronic acid 0.05 mg/ml injection (8 sources) Bisphosphonate Start: 11-05-2023 End: 08-14-2024 Zoledronic Ytil-Pyaxpqyh-Qdlqk 5 mg/100 mL piggyback Discontinued 1 NMA .Route ONCE 100 0 November 05, 2023 12:00am August 14, 2024 2:37pm infuse over 20 minutes Problems Active Problems Problem Classification Problem Date Documented Date Episodic/Chronic Appendicitis and other appendiceal conditions (2 sources) Acute appendicitis; Translations: [Unspecified acute appendicitis] 04-01-2025 Episodic Calculus of urinary tract (20 sources) Renal colic; Translations: [Unspecified renal colic] 12-09-2021 Episodic Complications of surgical procedures or medical care (11 sources) Hypoparathyroidism following procedure; 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 Disorders of lipid metabolism (18 sources) Hyperlipidemia; Translations: [Hyperlipidemia, unspecified] Onset: 5 05-20-2020 Chronic Comment on above: Lipids are at goal o n his current medical therapy. E Codes: Natural/environment (14 sources) Dog bite - wound; Translations: [Bitten by dog, initial encounter] 05-20-2020 Episodic Essential hypertension (10 sources) Hypertensive disorder; Translations: [Essential (primary) hypertension] Onset: 5 12-27-2023 Chronic Comment on above: Patient blood pressu re in the office today is 152/80. The patient reports this is unusually high for him in his home environment he runs 135-140/70-80. Nonspecific chest pain (2 sources) Chest pain, unspecified; Translations: [Chest pain, unspecified] Onset: 5 Episodic Osteoporosis (9 sources) Osteoporosis; Translations: [Age-related osteoporosis without current pathological fracture] 11-11-2024 Chronic Comment on above: secondary to hyperpa rathyroidism (now resolved) Other endocrine disorders (14 sources) Hyperparathyroidism; Translations: [Hyperparathyroidism, unspecified] 05-20-2020 Chronic Other endocrine disorders (13 sources) Primary hyperparathyroidism; Translations: [Primary hyperparathyroidism] 09-13-2023 [...] well as reiterated my belief that Mr. Pérez not only possesses surgical indicators but makes a acceptable surgical candidate. I then went on to describe the procedure for a minimally invasive parathyroidectomy complete with PTH monitoring. Hand drawings were made to illustrate both relevant anatomy and concepts. Not only did Mr. Pérez appear to understand but he was able [...] Other hereditary and degenerative nervous system conditions (14 sources) Restless legs; Translations: [Restless legs syndrome] 05-20-2020 Chronic Other lower respiratory disease (4 sources) Dyspnea on exertion; Translations: [Other forms of dyspnea] 03-05-2025 Episodic Other lower respiratory disease (2 sources) Other forms of dyspnea; Translations: [Other forms of dyspnea] Onset: 5 Episodic Phlebitis; thrombophlebitis and thromboembolism (20 sources) Deep venous thrombosis; Translations: [Acute embolism and thrombosis of unspecified deep veins of unspecified lower extremity] Episodic Residual codes; unclassified (14 sources) Sleep apnea; Translations: [Sleep apnea, unspecified] 05-20-2020 Chronic Residual codes; unclassified (14 sources) History of hernia repair; Translations: [Other specified postprocedural states] 05-20-2020 Episodic Residual codes; unclassified (14 sources) History of surgical procedure on vein; Translations: [Other specified postprocedural states] 05-20-2020 Episodic Residual codes; unclassified (14 sources) History of parathyroidectomy; Translations: [Other specified [...] de-escalation of supplementation with tighter interval rechecking. Septicemia (except in labor) (2 sources) Sepsis; Translations: [Sepsis, unspecified organism] 04-01-2025 Episodic Unclassified (1 source) Nasal Injury / [id number]() Onset: 8 Viral infection (14 sources) Condyloma acuminatum of the anogenital region; [...] Injury; Translations: [Nasal Injury] Onset: 01-29-2018 Unclassified (14 sources) s/p shrapnel removal 02-25-2022 Results Test Name Value Interpretation Reference Range Facility Absolute lymphocyte countOrd ered By: Joseph Crook on 04-01-2025 Lymphocytes Auto (Unsp spec) [#/Vol] 0.34 10*3/uL Low 0.83-4.51 [facility] Absolute neutrophil countOrd ered By: Joseph Crook on 04-01-2025 Neutrophils (Bld) [#/Vol] 3.8 10*3/uL 2.0-7.7 [facility] Activated partial thrombopla stin time (aPTT) in platelet poor plasma by coagulation aOrdered By: Joseph Crook on 04-01-2025 aPTT Coag (PPP) [Time] 27.0 s 24.1-36.2 [facility] Anion gap in Serum or Plasma Ordered By: Joseph Crook on 04-01-2025 Anion gap [Moles/Vol] 18 mmol/L High 5-15 [facility] Automated lymphocyte count a s percentage of total leukocytesOrdered By: Joseph Crook on 04-01-2025 Lymphocytes/100 WBC Auto (Unsp spec) 8.0 % Low 19-41 [facility] BUN/creatinine ratioOrdered By: Joseph Crook on 04-01-2025 Urea nitrogen/Creatinine [Mass ratio] 12.1 mg/mg 10-20 [facility] Basophil percentageOrdered B y: Joseph Crook on 04-01-2025 Basophils/100 WBC (Bld) 0.5 % 0-1 [facility] Bilirubin Test strip Ql (U)O rdered By: Joseph Crook on 04-01-2025 Bilirubin Ql (U) Negative Negative [facility] Bilirubin, totalOrdered By: Joseph Crook on 04-01-2025 Bilirubin [Mass/Vol] 1.10 mg/dL 0.00-1.30 [facility] Carbon dioxide, total [Moles /volume] in Central venous bloodOrdered By: Joseph Crook on 04-01-2025 CO2 [Moles/Vol] 18.7 mmol/L Low 21.0-32.0 [facility] Chloride assayOrdered By: Jean Crook on 04-01-2025 Chloride [Moles/Vol] 102 mmol/L 98-108 [facility] Eosinophil percentageOrdered By: Joseph Crook on 04-01-2025 Eosinophils/100 WBC (Bld) 1.7 % 0-5 [facility] Erythrocyte distribution wid th ratioOrdered By: Joseph Crook on 04-01-2025 Erythrocyte distribution width (RBC) [Ratio] 12.6 % 11.6-14.6 [facility] Erythrocyte distribution wid th standard deviationOrdered By: Joseph Crook on 04-01-2025 Erythrocyte distribution width (RBC) [Ratio] 42.7 fl 35.1-43.9 [facility] Glomerular filtration rate ( GFR) estimation/1.73 sq m using serum, plasma, or whole bOrdered By: Joseph Crook on 04-01-2025 GFR/1.73 sq M.predicted among non-blacks MDRD (S/P/Bld) [Vol rate/Area] 55 mL/min/{1.73_m2} Low >60 [facility] Comment on above: mL/min/1.73m2 CKD-EP I Creatinine Equation (2020) Hematocrit Auto (Bld) [Volum e fraction]Ordered By: Joseph Crook on 04-01-2025 Hematocrit (Bld) [Volume fraction] 47.4 % 40-54 [facility] Hemoglobin measurementOrdere d By: Joseph Crook on 04-01-2025 Hemoglobin (Bld) [Mass/Vol] 16.8 g/dL High 13.0-16.5 [facility] Hyaline casts LM.LPF (Urine sed) [#/Area]Ordered By: Joseph Crook on 04-01-2025 Hyaline casts (Urine sed) [#/Area] 0 /[LPF] 0-5 [facility] Immature granulocytes/100 WB C Auto (Bld)Ordered By: Joseph Crook on 04-01-2025 Immature granulocytes/100 WBC (Bld) 0.200 % 0.0-0.9 [facility] Comment on above: IG% - Immature Granu locytes (promyelocytes, myelocytes and metamyelocytes) > 1% indicates that a LEFT SHIFT is Present. International normalized rat io (INR) calculationOrdered By: Joseph Crook on 04-01-2025 INR Coag (Bld) [Relative time] 1.1 {INR} [facility] Ketones Test strip Ql (U)Ord ered By: Joseph Crook on 04-01-2025 Ketones Ql (U) 5 mg/dl High Negative [facility] Laboratory - Chemistry and C hemistry - challengeOrdered By: Joseph Crook on 04-01-2025 AST [Catalytic activity/Vol] 23 U/L <38 [facility] Lactic acid measurementOrder ed By: Joseph Crook on 04-01-2025 Lactate [Moles/Vol] 4.2 mmol/L High 0.0-2.0 [facility] Comment on above: Critical Result(s) C alled at 0520: by: RENATA TO JASON Results read back by same. Lipase measurementOrdered By : Joseph Crook on 04-01-2025 Lipase [Catalytic activity/Vol] 32 U/L 13-75 [facility] Comment on above: Please note:LIPASE r evised reference range effective 22. New Lipase methodology. Expected to produce lower values than the previous assay method. NEW Reference Range: 13 - 75 U/L MCV (mean corpuscular volume ) determinationOrdered By: Joseph Crook on 04-01-2025 MCV (RBC) [Entitic vol] 92.2 fL 80-94 [facility] Mean corpuscular hemoglobin (MCH) determinationOrdered By: Joseph Crook on 04-01-2025 MCH (RBC) [Entitic mass] 32.7 pg High 27.0-32.0 [facility] Mean corpuscular hemoglobin concentration (MCHC) determinationOrdered By: Joseph Crook on 04-01-2025 MCHC (RBC) [Mass/Vol] 35.4 g/dL 32-36 [facility] Mean platelet volume determi nationOrdered By: Joseph Crook on 04-01-2025 Platelet mean volume (Bld) [Entitic vol] 9.3 fL 6.2-12.0 [facility] Microscopic analysis of urin e for red blood cells (RBC)Ordered By: Joseph Crook on 04-01-2025 Microscopic analysis of urine for red blood cells (RBC) 0 SEEN /hpf 0-5 [facility] Monocyte percentageOrdered B y: Joseph Crook on 04-01-2025 Monocytes/100 WBC (Bld) 0.7 % 0-10 [facility] Mucus LM Ql (Urine sed)Order ed By: Joseph Crook on 04-01-2025 Mucus Ql (Urine sed) 0 SEEN /hpf [facility] Neutrophil percentageOrdered By: Joseph Crook on 04-01-2025 Neutrophils/100 WBC (Bld) 88.9 % High 47-70 [facility] Nitrite Test strip Ql (U)Ord ered By: Joseph Crook on 04-01-2025 Nitrite Ql (U) Negative Negative [facility] Nucleated red blood cell per centageOrdered By: Joseph Crook on 04-01-2025 Nucleated RBC/100 WBC (Bld) [Ratio] 0 % 0-5 [facility] Platelet countOrdered By: Jean Crook on 04-01-2025 Platelets (Bld) [#/Vol] 164 10*3/uL 150-450 [facility] Potassium measurement (mass/ volume)Ordered By: Joseph Crook on 04-01-2025 Potassium (Unsp spec) [Mass/Vol] 4.1 mmol/L 3.3-5.1 [facility] Protein Test strip Ql (U)Ord ered By: Joseph Crook on 04-01-2025 Protein Ql (U) 30 mg/dl High Negative [facility] Prothrombin timeOrdered By: Joseph Crook on 04-01-2025 PT Coag (PPP) [Time] 14.4 s 11.7-14.9 [facility] RBC Auto (Bld) [#/Vol]Ordere d By: Joseph Crook on 04-01-2025 RBC (Bld) [#/Vol] 5.14 10*6/uL 4.6-6.2 [facility] Serum creatinine measurement (mass/volume)Ordered By: Joseph Crook on 04-01-2025 Creatinine [Mass/Vol] 1.32 mg/dL High 0.70-1.20 [facility] Serum globulin measurementOr dered By: Joseph Crook on 04-01-2025 Globulin (S) [Mass/Vol] 2.7 g/dL 2.2-4.2 [facility] Serum glucose measurement (m ass/volume)Ordered By: Joseph Crook on 04-01-2025 Glucose [Mass/Vol] 117 mg/dL High 70-99 [facility] Serum or plasma alanine doll otransferase (ALT) measurementOrdered By: Joseph Crook on 04-01-2025 ALT [Catalytic activity/Vol] 26 U/L <47 [facility] Serum or plasma albumin keesha urement (mass/volume)Ordered By: Joseph Crook on 04-01-2025 Albumin [Mass/Vol] 4.3 g/dL 3.4-4.8 [facility] Serum or plasma albumin/glob ulin mass ratioOrdered By: Joseph Crook on 04-01-2025 Albumin/Globulin [Mass ratio] 1.6 {ratio} 0.9-2.4 [facility] Serum or plasma alkaline marysol sphatase measurementOrdered By: Joseph Crook on 04-01-2025 ALP [Catalytic activity/Vol] 68 U/L 40-129 [facility] Serum or plasma calcium keesha urement (mass/volume)Ordered By: Joseph Crook on 04-01-2025 Calcium [Mass/Vol] 9.7 mg/dL 7.6-11.0 [facility] Serum or plasma urea nitroge n measurement (mass/volume)Ordered By: Joseph Crook on 04-01-2025 Urea nitrogen [Mass/Vol] 16 mg/dL 4-19 [facility] Sodium levelOrdered By: Tesfaye Crook on 04-01-2025 Sodium [Moles/Vol] 139 mmol/L 133-145 [facility] Squamous epithelial cells de tection in urine sediment by light microscopyOrdered By: Joseph Crook on 04-01-2025 Epithelial cells.squamous LM Ql (Urine sed) 0 SEEN /hpf 0-5 [facility] Total proteinOrdered By: Darrel Crook on 04-01-2025 Protein [Mass/Vol] 7.0 g/dL 5.9-8.4 [facility] Troponin T.cardiac [Mass/vol ume] in Serum or Plasma by High sensitivity methodOrdered By: Joseph Crook on 04-01-2025 Troponin T.cardiac High sensitivity method [Mass/Vol] 19 ng/L <22 [facility] Troponin T.cardiac High sensitivity method [Mass/Vol] 9 ng/L <22 [facility] Comment on above: Delta: 6 on 02/16/25 Urine clarityOrdered By: Darrel Crook on 04-01-2025 Clarity (U) Clear Clear [facility] Urine color determinationOrd ered By: Joseph Crook on 04-01-2025 Color (U) Yellow Yellow [facility] Urine glucose detectionOrder ed By: Joseph Crook on 04-01-2025 Glucose Ql (U) Normal mg/dl Normal [facility] Urine leukocyte esterase det ection by dipstickOrdered By: Joseph Crook on 04-01-2025 Leukocyte esterase Test strip Ql (U) Negative Negative [facility] Urine pHOrdered By: Joseph Crook on 04-01-2025 pH (U) 6.5 [pH] 5.0 - 8.0 [facility] Urine sediment bacteria coun t by microscopy (number/high power field)Ordered By: Joseph Crook on 04-01-2025 Bacteria LM.HPF (Urine sed) [#/Area] 0 /[HPF] None Seen [facility] Urine specific gravity measu rementOrdered By: Joseph Crook on 04-01-2025 Specific gravity (U) [Rel density] 1.010 1.002-1.030 [facility] Urine urobilinogen measureme ntOrdered By: Joseph Crook on 04-01-2025 Urobilinogen Ql (U) Normal mg/dl Normal [facility] White blood cell (WBC) count Ordered By: Joseph Leónone on 04-01-2025 WBC (Bld) [#/Vol] 4.2 10*3/uL Low 4.4-11.0 [facility] White blood cell countOrdere d By: Joseph Crook on 04-01-2025 White blood cell count 0 SEEN /hpf 0-5 [facility] Stress Reporton 03-31-2025 Stress Report [facility] [address] [place] [address] MR#: [id number] Acct: [id number] Name: BETOYAHAIRA Rep #: [id number] : 1945 79 From: William Shirley MD Primary Care: Dr. Elmer Arnett MD Status: REG CLI Referring Dr: Huseyin West NP ART SPECIALIST-C Sex: M C Stress Test Report Pharmacologic [...] Shirley MD CC: LELAND West; Dr. Elmer Arnett MD Date Dictated: 03/31/251425 Date Transcribed: 03/31/251425 Java Developer Consultant: [place] Signed Normal [facility] Cardiology Visit Reporton Cardiology Visit Report [facility] [address] [place] [address] OFFICE VISIT Date of Service: 03/05/25 MR#: [id number] Acct: [id number] Name: YAHAIRA PÉREZ Rep #: [id number] : 1945 Provider: LELAND shay Age/Sex: 79/M Location: [facility] Status: Signed HPI HPI History of Present Illness Details: Patient is a 79-year-old white male comes in for a routine cardiovascular outpatient appointment. He has historically been cared for in the [facility]. He had remote stenting of his [...] air Intake Visit Reasons: 1 Y FU Radiology Manager Required: No Accompanied by: Is patient in [...] D deficiency Atherosclerosis of coronary artery of [place] without angina pectoris Primary hyperparathyroidism History [...] rash Card (more content not included)... Normal [facility] Electrocardiogram reportOrde red By: Kamaljit Hendricks on 02-19-2025 EKG study [facility] Cardiovascular Services [address] [place] [address] 12 Lead EKG 02/18/25 0702 MR#: [id number] Acct: [id number] Name: YAHAIRA PÉREZ Rep #:[id number] : 1945 79 From: Kamaljit bird MD Attending Dr: Dr. Elmer Arnett MD Status: REG CLI Ordering Dr: Elmer Arnett MD Date: Location: PSN Sex: M C Admitted: Test Reason : [...] longer Present Confirmed by Kamaljit Hendricks ([id number]), scientific publications editor AICHA MARIE ([id number]) on 02/19/2025 8:32:50 AM Referred By: Elmer Arnett Confirmed By: Kamaljit Hendricks 02/19/25 0832 Date _ Kamaljit Hendricks MD CC: Dr. Elmer Arnett MD ~ Signed [facility] Work Phone: 12 Lead EKGon 02-18-2025 12 Lead EKG [facility] Cardiovascular Services [address] [place] [address] 12 Lead EKG 02/18/25 0702 MR#: [id number] Acct: [id number] Name: YAHAIRA PÉREZ Rajesh Rep #: [id number] : 1945 79 From: Kamaljit Hendricks MD Attending Dr: Dr. Elmer Arnett MD Status: REG CLI Ordering Dr: Elmer Arnett MD Date: 02/18/25 Location: [facility] Sex: M C Admitted: Test Reason : [...] longer Present Confirmed by Kamaljit Hendricks ([id number]), scientific publications editor AICHA MARIE ([id number]) on 02/19/2025 8:32:50 AM Referred By: Elmer Arnett Confirmed By: Kamaljit Hendricks 02/19/25 0832 Date Kamaljit Hendricks MD CC: Dr. Elmer Arnett MD Signed Normal [facility] Myoglobin, Serumon Myoglobin, Ser 34 ng/mL Normal 28-72 [facility] Comment on above: Result Comment: Perf ormed at: - [facility] [place] [id number] Training And Development Professional: Philipp Vanegas PhD, Phone: [phone] Performed By: #### L 509.1000 #### [facility] [address] [place], [place], [id number] Urine Cultureon 02-18-2025 URC Below infection leve l. Mixed Gram Positive Organisms [place] Count 1000-10,000 MIXC Mixed contaminants. Submit a new specimen if indicated. Normal [facility] Comment on above: Performed By: #### L 509.1000 #### [facility] [address] [place], [place], [id number] Absolute lymphocyte countOrd ered By: Elmer Arnett on 02-16-2025 Lymphocytes Auto (Unsp spec) [#/Vol] 1.12 10*3/uL 0.83-4.51 [facility] Absolute neutrophil countOrd ered By: Elmer Arnett on 02-16-2025 Neutrophils (Bld) [#/Vol] 4.8 10*3/uL 2.0-7.7 [facility] Anion gap in Serum or Plasma Ordered By: Elmer Arnett on 02-16-2025 Anion gap [Moles/Vol] 14 mmol/L 5-15 [facility] Automated lymphocyte count a s percentage of total leukocytesOrdered By: Elmer Arnett on 02-16-2025 Lymphocytes/100 WBC Auto (Unsp spec) 16.1 % Low 19-41 [facility] BUN/creatinine ratioOrdered By: Elmer Arnett on 02-16-2025 Urea nitrogen/Creatinine [Mass ratio] 13.0 mg/mg 10-20 [facility] Basophil percentageOrdered B y: Elmer Arnett on 02-16-2025 Basophils/100 WBC (Bld) 0.7 % 0-1 [facility] Bilirubin Test strip Ql (U)O rdered By: Elmer Arnett on 02-16-2025 Bilirubin Ql (U) Negative Negative [facility] Bilirubin, totalOrdered By: Elmer Arnett on 02-16-2025 Bilirubin [Mass/Vol] 0.45 mg/dL 0.00-1.30 [facility] CBC W/Diff, Automatedon 02-03 Absolute Lymph 1.12 X10 3/uL Normal 0.83-4.51 [facility] Comment on above: Performed By: #### L 509.1000 #### [facility] [address] [place], [address] Absolute Neut 4.8 X10 3/uL Normal 2.0-7.7 [facility] Comment on above: Performed By: #### L 509.1000 #### [facility] [address] [place], [address] Basophils/100 WBC (Bld) 0.7 % Normal 0-1 [facility] Comment on above: Performed By: #### L 509.1000 #### [facility] [address] [place], [address] Eosinophils/100 WBC (Bld) 1.2 % Normal 0-5 [facility] Comment on above: Performed By: #### L 509.1000 #### [facility] [address] [place], [address] Erythrocyte distribution width (RBC) [Ratio] 12.5 % Normal 11.6-14.6 [facility] Comment on above: Performed By: #### L 509.1000 #### [facility] [address] [place], [address] Hematocrit (Bld) [Volume fraction] 49.9 % Normal 40-54 [facility] Comment on above: Performed By: #### L 509.1000 #### [facility] [address] [place], [address] Hemoglobin (Bld) [Mass/Vol] 16.8 g/dL High 13.0-16.5 [facility] Comment on above: Performed By: #### L 509.1000 #### [facility] [address] [facility] [place], [address] IG% 0.400 Normal 0.0-0.9 [facility] Comment on above: Result Comment: IG% - Immature Granulocytes (promyelocytes, myelocytes and metamyelocytes) > 1% indicates that a LEFT SHIFT is Present. Performed By: #### L 509.1000 #### [facility] [address] [place] [address]. [place], [address] Lymphocytes/100 WBC (Bld) 16.1 % Low 19-41 [facility] Comment on above: Performed By: #### L 509.1000 #### [facility] [address] [place] [address]. [place], [address] MCH (RBC) [Entitic mass] 31.6 pg Normal 27.0-32.0 [facility] Comment on above: Performed By: #### L 509.1000 #### [facility] [address] [place] [address]. [place], [address] MCHC (RBC) [Mass/Vol] 33.7 g/dL Normal 32-36 [facility] Comment on above: Performed By: #### L 509.1000 #### [facility] [place], [address] MCV (RBC) [Entitic vol] 93.8 fL Normal 80-94 [facility] Comment on above: Performed By: #### L 509.1000 #### [facility] [place], [address] Monocytes/100 WBC (Bld) 12.0 % High 0-10 [facility] Comment on above: Performed By: #### L 509.1000 #### [facility] [address] [place], [address] Neutrophils/100 WBC (Bld) 69.6 % Normal 47-70 [facility] Comment on above: Performed By: #### L 509.1000 #### [facility] [address] [place], [address] Nucleated RBC (Bld) [#/Vol] 0 10*3/uL Normal 0-5 [facility] Comment on above: Performed By: #### L 509.1000 #### [facility] [address] [place], [address] Platelet mean volume (Bld) [Entitic vol] 9.8 fL Normal 6.2-12.0 [facility] Comment on above: Performed By: #### L 509.1000 #### [facility] [address] [place], [address] Platelets (Bld) [#/Vol] 199 10*3/uL Normal 150-450 [facility] Comment on above: Performed By: #### L 509.1000 #### [facility] [address] [place], [address] RBC (Bld) [#/Vol] 5.32 10*6/uL Normal 4.6-6.2 [facility] Comment on above: Performed By: #### L 509.1000 #### [facility] [address] [place], [address] RDW SD 42.6 fl Normal 35.1-43.9 [facility] Comment on above: Performed By: #### L 509.1000 #### [facility] [address] [place], [address] WBC (Bld) [#/Vol] 6.9 10*3/uL Normal 4.4-11.0 [facility] Comment on above: Performed By: #### L 509.1000 #### [facility] [address] [place], [address] CPK Total, Creatine Kinaseon 02-16-2025 CPK TOTAL 97 U/L Normal 24-195 [facility] Comment on above: Performed By: #### L 509.1000 #### [facility] [address] [place], [address] Carbon dioxide, total [Moles /volume] in Central venous bloodOrdered By: Elmer Arnett on 02-16-2025 CO2 [Moles/Vol] 22.1 mmol/L 21.0-32.0 [facility] Chest PA and Lateralon 02-16 Chest PA and Lateral [facility] Imaging Services [address] [place] [address] Chest PA and Lateral MR#: [id number] Acct: [id number] Name: YAHAIRA PÉREZ Rajesh Rep #: [id number] : 1945 M 79 From: Christel Metcalf MD PCP: Dr. Elmer Arnett MD Status: REG CLI Study: Chest PA and Lateral Date of Exam: 02/16/25 Exam# [id number] Ordering Dr: Elmer Arnett MD PROCEDURE: CHEST PA AND LATERAL 02/16/2025 REASON FOR EXAM: CHEST PAIN TECHNIQUE: CHEST PA AND LATERAL COMPARISON: No FINDINGS: Normal heart size. Well inflated lungs. No consolidation, effusion, or pneumothorax. RAD/Chest PA and Lateral IMPRESSION: No acute findings Reading Location: RAD-METCALF-2 CC: Dr. Elmer Arnett MD Java Developer Consultant: Signed Normal [facility] Chloride assayOrdered By: Higinio Arnett on 02-16-2025 Chloride [Moles/Vol] 106 mmol/L 98-108 [facility] Comprehensive Metabolic Prof ilon 02-16-2025 Albumin [Mass/Vol] 4.5 g/dL Normal 3.4-4.8 [facility] Comment on above: Performed By: #### L 509.1000 #### [facility] [address] [place], [address] Albumin/Globulin [Mass ratio] 1.6 {ratio} Normal 0.9-2.4 [facility] Comment on above: Performed By: #### L 509.1000 #### [facility] [address] [place], [address] ALK PHOS 62 U/L Normal 40-129 [facility] Comment on above: Performed By: #### L 509.1000 #### [facility] [address] [place], [address] ALT [Catalytic activity/Vol] 32 U/L Normal <=46 [facility] Comment on above: Performed By: #### L 509.1000 #### [facility] [address] [place], [address] AST [Catalytic activity/Vol] 25 U/L Normal <=37 [facility] Comment on above: Performed By: #### L 509.1000 #### [facility] [address] [place], [address] Bilirubin [Mass/Vol] 0.45 mg/dL Normal 0.00-1.30 [facility] Comment on above: Performed By: #### L 509.1000 #### [facility] [address] [place], [address] BUN/CRE 13.0 RATIO Normal 10-20 [facility] Comment on above: Performed By: #### L 509.1000 #### [facility] [address] [place], [address] Calcium [Mass/Vol] 10.1 mg/dL Normal 7.6-11.0 [facility] Comment on above: Performed By: #### L 509.1000 #### [facility] [address] [place], [address] Chloride [Moles/Vol] 106 mmol/L Normal 98-108 [facility] Comment on above: Performed By: #### L 509.1000 #### [facility] [address] [place], [address] CO2 [Moles/Vol] 22.1 mmol/L Normal 21.0-32.0 [facility] Comment on above: Performed By: #### L 509.1000 #### [facility] [address] [place], [address] Creatinine [Mass/Vol] 1.11 mg/dL Normal 0.70-1.20 [facility] Comment on above: Performed By: #### L 509.1000 #### [facility] [address] [place], [address] GAP 14 Normal 5-15 [facility] Comment on above: Performed By: #### L 509.1000 #### [facility] [address] [place], [address] GFR/1.73 sq M.predicted among non-blacks MDRD (S/P/Bld) [Vol rate/Area] 68 mL/min/{1.73_m2} Normal >60 [facility] Comment on above: Result Comment: mL/m in/1.73m2 CKD-EPI Creatinine Equation (2020) Performed By: #### L 509.1000 #### [facility] [address] [place], [address] Globulin (S) [Mass/Vol] 2.9 g/dL Normal 2.2-4.2 [facility] Comment on above: Performed By: #### L 509.1000 #### [facility] [address] [place], [address] Glucose [Mass/Vol] 91 mg/dL Normal 70-99 [facility] Comment on above: Performed By: #### L 509.1000 #### [facility] [address] [place], [address] Potassium [Moles/Vol] 4.5 mmol/L Normal 3.3-5.1 [facility] Comment on above: Performed By: #### L 509.1000 #### [facility] [address] [place], [address] ( Sodium [Moles/Vol] 142 mmol/L Normal 133-145 [facility] Comment on above: Performed By: #### L 509.1000 #### [facility] [address] [place], [address] T PROT 7.4 g/dL Normal 5.9-8.4 [facility] Comment on above: Performed By: #### L 509.1000 #### [facility] [address] [place], [address] Urea nitrogen [Mass/Vol] 14 mg/dL Normal 4-19 [facility] Comment on above: Performed By: #### L 509.1000 #### [facility] [address] [place], [address] D-Dimer Quantitative (DVT/PE )on 02-16-2025 D-DIMER QUANT 0.27 FEU/ug/m Normal 0.27-0.49 [facility] Comment on above: Result Comment: NORM AL D-Dimer level (<0.50) indicates no DVT or PE. Performed By: #### L 509.1000 #### [facility] [address] [place], [address] Eosinophil percentageOrdered By: Elmer Arnett on 02-16-2025 Eosinophils/100 WBC (Bld) 1.2 % 0-5 [facility] Erythrocyte distribution wid th ratioOrdered By: Elmer Arnett on 02-16-2025 Erythrocyte distribution width (RBC) [Ratio] 12.5 % 11.6-14.6 [facility] Erythrocyte distribution wid th standard deviationOrdered By: Elmer Arnett on 02-16-2025 Erythrocyte distribution width (RBC) [Ratio] 42.6 fl 35.1-43.9 [facility] Glomerular filtration rate ( GFR) estimation/1.73 sq m using serum, plasma, or whole bOrdered By: Elmer Arnett on 02-16-2025 GFR/1.73 sq M.predicted among non-blacks MDRD (S/P/Bld) [Vol rate/Area] 68 mL/min/{1.73_m2} >60 [facility] Comment on above: mL/min/1.73m2 CKD-EP I Creatinine Equation (2020) Hematocrit Auto (Bld) [Volum e fraction]Ordered By: Elmer Arnett on 02-16-2025 Hematocrit (Bld) [Volume fraction] 49.9 % 40-54 [facility] Hemoglobin measurementOrdere d By: Elmer Arnett on 02-16-2025 Hemoglobin (Bld) [Mass/Vol] 16.8 g/dL High 13.0-16.5 [facility] Immature granulocytes/100 WB C Auto (Bld)Ordered By: Elmer Arnett 02-16-2025 Immature granulocytes/100 WBC (Bld) 0.400 % 0.0-0.9 [facility] Comment on above: IG% - Immature Granu locytes (promyelocytes, myelocytes and metamyelocytes) > 1% indicates that a LEFT SHIFT is Present. Ketones Test strip Ql (U)Ord ered By: Elmer Arnett on 02-16-2025 Ketones Ql (U) Negative Negative [facility] L501.4021on 02-16-2025 Trop T High Sen 6 ng/L Normal <=22 [facility] Comment on above: Performed By: #### L 509.1000 #### [facility] [address] [place], [address] L503.7505on 02-16-2025 Natriuretic peptide B (Bld) [Mass/Vol] 121 pg/mL Normal <=1800 [facility] Comment on above: Result Comment: Hear t Failure Unlikely: < 300 pg/mL Heart Failure Likely < 50 Years: > 450 pg/mL 50-75 Years: > 900 pg/mL >75 Years: > 1800 pg/mL Performed By: #### L 509.1000 #### [facility] [address] [facility] [place], [address] Laboratory - Chemistry and C hemistry - challengeOrdered By: Elmer Arnett on 02-16-2025 AST [Catalytic activity/Vol] 25 U/L <38 [facility] MCV (mean corpuscular volume ) determinationOrdered By: Elmer Arnett 02-16-2025 MCV (RBC) [Entitic vol] 93.8 fL 80-94 [facility] Mean corpuscular hemoglobin (MCH) determinationOrdered By: Elmer Arnett 02-16-2025 MCH (RBC) [Entitic mass] 31.6 pg 27.0-32.0 [facility] Mean corpuscular hemoglobin concentration (MCHC) determinationOrdered By: Elmer Melquiades 02-16-2025 MCHC (RBC) [Mass/Vol] 33.7 g/dL 32-36 [facility] Mean platelet volume determi nationOrdered By: Elmer Arnett 02-16-2025 Platelet mean volume (Bld) [Entitic vol] 9.8 fL 6.2-12.0 [facility] Microscopic analysis of urin e for red blood cells (RBC)Ordered By: Elmer Arnett 02-16-2025 Microscopic analysis of urine for red blood cells (RBC) 0-5 SEEN /hpf 0-5 [facility] Monocyte percentageOrdered B y: Elmer Arnett 02-16-2025 Monocytes/100 WBC (Bld) 12.0 % High 0-10 [facility] Mucus LM Ql (Urine sed)Order ed By: Elmer Arnett 02-16-2025 Mucus Ql (Urine sed) 0 SEEN /hpf [facility] Natriuretic peptide.B prohor bello N-Terminal [Mass/volume] in Serum or PlasmaOrdered By: Elmer Arnett 02-16-2025 Natriuretic peptide.B prohormone N-Terminal [Mass/Vol] 121 pg/mL <1800 [facility] Comment on above: Heart Failure Unlike ly: < 300 pg/mLHeart Failure Likely< 50 Years: > 450 pg/mL50-75 Years: > 900 pg/mL>75 Years: > 1800 pg/mL Neutrophil percentageOrdered By: Elmer Arnett 02-16-2025 Neutrophils/100 WBC (Bld) 69.6 % 47-70 [facility] Nitrite Test strip Ql (U)Ord ered By: Elmer Arnett on 02-16-2025 Nitrite Ql (U) Negative Negative [facility] Nucleated red blood cell per centageOrdered By: Elmer Arnett on 02-16-2025 Nucleated RBC/100 WBC (Bld) [Ratio] 0 % 0-5 [facility] Platelet countOrdered By: Higinio Arnett on 02-16-2025 Platelets (Bld) [#/Vol] 199 10*3/uL 150-450 [facility] Potassium measurement (mass/ volume)Ordered By: Elmer Arnett on 02-16-2025 Potassium (Unsp spec) [Mass/Vol] 4.5 mmol/L 3.3-5.1 [facility] Protein Test strip Ql (U)Ord ered By: Elmer Arnett on 02-16-2025 Protein Ql (U) 15 mg/dl High Negative [facility] RBC Auto (Bld) [#/Vol]Ordere d By: Elmer Arnett on 02-16-2025 RBC (Bld) [#/Vol] 5.32 10*6/uL 4.6-6.2 [facility] Serum creatinine measurement (mass/volume)Ordered By: Elmer Arnett on 02-16-2025 Creatinine [Mass/Vol] 1.11 mg/dL 0.70-1.20 [facility] Serum globulin measurementOr dered By: Elmer Arnett 02-16-2025 Globulin (S) [Mass/Vol] 2.9 g/dL 2.2-4.2 [facility] Serum glucose measurement (m ass/volume)Ordered By: Elmer Arnett on 02-16-2025 Glucose [Mass/Vol] 91 mg/dL 70-99 [facility] Serum myoglobin measurementO rdered By: Elmer Arnett on 02-16-2025 Myoglobin [Mass/Vol] 34 ng/mL 28-72 [facility] Comment on above: Performed at: [facility] [address] [id number] Director: Philipp Vanegas PhD, Phone: [phone] Serum or plasma alanine doll otransferase (ALT) measurementOrdered By: Elmer Arnett on 02-16-2025 ALT [Catalytic activity/Vol] 32 U/L <47 [facility] Serum or plasma albumin keesha urement (mass/volume)Ordered By: Elmer Arnett 02-16-2025 Albumin [Mass/Vol] 4.5 g/dL 3.4-4.8 [facility] Serum or plasma albumin/glob ulin mass ratioOrdered By: Elmer Arnett 02-16-2025 Albumin/Globulin [Mass ratio] 1.6 {ratio} 0.9-2.4 [facility] Serum or plasma alkaline marysol sphatase measurementOrdered By: Elmer Arnett 02-16-2025 ALP [Catalytic activity/Vol] 62 U/L 40-129 [facility] Serum or plasma calcium keesha urement (mass/volume)Ordered By: Elmer Arnett 02-16-2025 Calcium [Mass/Vol] 10.1 mg/dL 7.6-11.0 [facility] Serum or plasma creatine kin ase activityOrdered By: Elmer Arnett 02-16-2025 CK [Catalytic activity/Vol] 97 U/L 24-195 [facility] Serum or plasma urea nitroge n measurement (mass/volume)Ordered By: Elmer Arnett 02-16-2025 Urea nitrogen [Mass/Vol] 14 mg/dL 4-19 [facility] Sodium levelOrdered By: Elmer Arnett 02-16-2025 Sodium [Moles/Vol] 142 mmol/L 133-145 [facility] Squamous epithelial cells de tection in urine sediment by light microscopyOrdered By: Elmer Arnett 02-16-2025 Epithelial cells.squamous LM Ql (Urine sed) 0 SEEN /hpf 0-5 [facility] TSH DL <= 0.005 mIU/L QnOrde red By: Elmer Arnett on 02-16-2025 TSH Qn 3.360 uIU/mL 0.300-4.200 [facility] Thyroid Stim Hormone (TSH)on 02-16-2025 TSH 3.360 uIU/mL Normal 0.300-4.200 [facility] Comment on above: Performed By: #### L 509.1000 #### [facility] [address] [place], [address] Total proteinOrdered By: Elmer Arnett on 02-16-2025 Protein [Mass/Vol] 7.4 g/dL 5.9-8.4 [facility] Troponin T.cardiac [Mass/vol ume] in Serum or Plasma by High sensitivity methodOrdered By: Elmer Arnett on 02-16-2025 Troponin T.cardiac High sensitivity method [Mass/Vol] 6 ng/L <22 [facility] Urinalysis, Completeon 02-16 RBC 0-5 SEEN Normal 0-5 [facility] Comment on above: Order Comment: Urine , Random Performed By: #### L 509.1000 #### [facility] [address] [place], [address] WBC 0-5 SEEN Normal 0-5 [facility] Comment on above: Order Comment: Urine , Random Performed By: #### L 509.1000 #### [facility] [address] [place], [address] BACTERIA 0 SEEN Normal None Seen [facility] Comment on above: Order Comment: Urine , Random Performed By: #### L 509.1000 #### [facility] [address] [place], [address] EPI,SQUAMOUS 0 SEEN Normal 0-5 [facility] Comment on above: Order Comment: Urine , Random Performed By: #### L 509.1000 #### [facility] [address] [place], [address] Mucus Ql (Urine sed) 0 SEEN Normal [facility] Comment on above: Order Comment: Urine , Random Performed By: #### L 509.1000 #### [facility] [address] [place], [address] Urine clarityOrdered By: Elmer Arnett on 02-16-2025 Clarity (U) Clear Clear [facility] Urine color determinationOrd ered By: Elmer Arnett on 02-16-2025 Color (U) Yellow Yellow [facility] Urine cultureOrdered By: Elmer Arnett on 02-16-2025 Bacteria identified Cx Nom (U) Positive Abnormal [facility] Urine glucose detectionOrder ed By: Elmer Arnett on 02-16-2025 Glucose Ql (U) Normal mg/dl Normal [facility] Urine leukocyte esterase det ection by dipstickOrdered By: Elmer Arnett on 02-16-2025 Leukocyte esterase Test strip Ql (U) Negative Negative [facility] Urine pHOrdered By: Elmer Arnett on 02-16-2025 pH (U) 7.0 [pH] 5.0 - 8.0 [facility] Urine sediment bacteria coun t by microscopy (number/high power field)Ordered By: Elmer Arnett on 02-16-2025 Bacteria LM.HPF (Urine sed) [#/Area] 0 /[HPF] None Seen [facility] Urine specific gravity measu rementOrdered By: Elmer Arnett on 02-16-2025 Specific gravity (U) [Rel density] 1.010 1.002-1.030 [facility] Urine urobilinogen measureme ntOrdered By: Elmer Arnett on 02-16-2025 Urobilinogen Ql (U) Normal mg/dl Normal [facility] White blood cell (WBC) count Ordered By: Elmer Arnett on 02-16-2025 WBC (Bld) [#/Vol] 6.9 10*3/uL 4.4-11.0 [facility] White blood cell countOrdere d By: Elmer Arnett on 02-16-2025 White blood cell count 0-5 SEEN /hpf 0-5 [facility] Endocrinology Visit Reporton 11-11-2024 Endocrinology Visit Report [facility] [address] [facility] [facility] [address] [place] [address] OFFICE VISIT Date of Service: 11/11/24 MR#: [id number] Acct: [id number] Name: YAHAIRA PÉREZ Rep #: [id number] : 1945 Provider: Ness Camacho Age/Sex: 78/M [place] [facility] Status: Signed Intake Vital Signs 05/13/24 07:55 [...] 11/11/24 History mcg (1,000 unit) tablet omega 4-rpc-tlp-fish oil 1,200 mg 1 cap PO BID [...] D deficiency Atherosclerosis of coronary artery of [place] heart without angina pectoris Primary hyperparathyroidism History [...] Complaint: s/p parathyroidectomy DOS 08/22 Details: YAHAIRA PÉREZ, is a 78 M who presents to [...] and patie (more content not included)... Normal [facility] Elastography Parenchyma/Orga non 11-10-2024 Elastography Parenchyma/Organ [facility] Imaging Services [address] [place] [address] Elastography Parenchyma/Organ MR#: [id number] Acct: [id number] Name: YAHAIRA PÉREZ Rep #: [id number] : 1945 M 78 From: Zeke Moore MD PCP: Dr. Elmer Arnett MD Status: REG CLI Study: Elastography Parenchyma/Organ Date of Exam: Exam# [id number] Ordering Dr: Elmer Arnett MD PROCEDURE: ELASTOGRAPHY PARENCHYMA/ORGAN (USELPAROG), 11/10/2024 REASON FOR EXAM: ELEVATED LIVER ENZYMES COMPARISON: 10/03/2024 TECHNIQUE: [employer] S-shear wave elastography was performed for non-invasive [...] (15kPa): Significant fibrosis / cirrhosis Reading Location: [id number] CC: Dr. Elmer Arnett MD Java Developer Consultant: Signed Normal [facility] Abdomen Limitedon 10-03-2024 Abdomen Limited [facility] Imaging Services [address] [place], [place] [id number] Abdomen Limited MR#: [id number] Acct: [id number] Name: YAHAIRA PÉREZ Rep #: [id number] : 1945 M 78 From: Demetri harp MD PCP: Dr. Elmer Arnett MD Status: REG CLI Study: Abdomen Limited Date of Exam: 10/03/24 Exam# [id number] Ordering Dr: Elmer Arnett MD PROCEDURE: ABDOMEN LIMITED REASON FOR EXAM: [...] and nonobstructive right intrarenal calculus. Reading Location: [facility] CC: Dr. Elmer Arnett MD Java Developer Consultant: Signed Normal [facility] Hepatitis Panel Acuteon 09-07 COMMENT Comment Normal . [facility] Comment on above: Order Comment: ADD T O LABS DRAWN 09/29/24 Result Comment: Not infected with HCV unless early or acute infection is suspected (which may be delayed in an immunocompromised individual), or other evidence exists to indicate HCV infection. Performed at: [facility] [address] [id number] Training And Development Professional: Philipp Vanegas PhD, Phone: [phone] Performed By: #### L 509.1000 #### [facility] [address] [place], [address] HEP B CORE,IgM Negative Normal Negative [facility] Comment on above: Order Comment: ADD T O LABS DRAWN 09/29/24 Performed By: #### L 509.1000 #### [facility] [address] [place] [id number] HEP B SURF AG Negative Normal Negative [facility] Comment on above: Order Comment: ADD T O LABS DRAWN 09/29/24 Performed By: #### L 509.1000 #### [facility] [address] [place], [address] HEP C VIRUS AB Non-Reactive Normal Non Reactive [facility] Comment on above: Order Comment: ADD T O LABS DRAWN 09/29/24 Performed By: #### L 509.1000 #### [facility] [address] [facility] [address] HEPATITIS A-IgM Negative Normal Negative [facility] Comment on above: Order Comment: ADD T O LABS DRAWN 09/29/24 Result Comment: A ne gative anti-HAV IgM result suggests no recent or current HAV infection. Performed By: #### L 509.1000 #### [facility] [address] [place], [address] HBV surface Ag IA QlOrdered By: Elmer Arnett on 09-30-2024 Hepatitis B Surface Antigen Negative Negative [facility] Hepatitis A virus IgM antibo dy assayOrdered By: Elmer Arnett on 09-30-2024 Hepatitis A IgM Antibody Negative Negative [facility] Comment on above: A negative anti-HAV IgM result suggests no recent orcurrent HAV infection. Hepatitis B virus core IgM a ntibody assayOrdered By: Elmer Arnett on 09-30-2024 Hepatitis B Core IgM Antibody Negative Negative [facility] Hepatitis C virus antibody a ssayOrdered By: Elmer Arnett on 09-30-2024 Hepatitis C Antibody (EIA) Non-Reactive Non Reactive [facility] No Panel InformationOrdered By: Elmer Arnett on 09-30-2024 Hepatitis C Antibody Comment Comment . [facility] Comment on above: Not infected with HC V unless early or acute infection issuspected (which may be delayed in an immunocompromisedindividual), or other evidence exists to indicate HCVinfection.Performed at: - [facility] [id number] Director: Philipp Vanegas PhD, Phone: [phone] [id number] DOrdered By: Jenifer Padilla on 09-29-2024 Vitamin D 25-Hydroxy 37.8 ng/mL [facility] Comment on above: Vitamin D 25(OH) Sta tus Range Deficiency <20 ng/mL (50nmol/L) Insufficiency 20 - 30 ng/mL (50 - 75 nmol/L) Sufficiency 30 - 100 ng/mL (75 - 250 nmol/L) Toxicity >100 ng/mL (>250 nmol/L) Absolute neutrophil countOrd ered By: Elmer Arnett on 09-29-2024 Neutrophils (Bld) [#/Vol] 4.7 10*3/uL 2.0-7.7 [facility] Albumin to globulin ratioOrd ered By: Elmer Arnett on 09-29-2024 Albumin/Globulin [Mass ratio] 1.0 {ratio} 0.9-2.4 [facility] Basic Metabolic Profile (BMP )on 09-29-2024 BUN Normal 7-18 [facility] Comment on above: Result Comment: CMP ORDERED Performed By: #### L 500.2500, L506.1000 #### [facility] [place], [address] BUN/CRE Normal 10-20 [facility] Comment on above: Result Comment: CMP ORDERED Performed By: #### L 500.2500, L506.1000 #### [facility] [address] [place], [address] CA,Total Normal 8.5-10.1 [facility] Comment on above: Result Comment: CMP ORDERED Performed By: #### L 500.2500, L506.1000 #### [facility] [address] [place], [address] CL Normal 98-107 [facility] Comment on above: Result Comment: CMP ORDERED Performed By: #### L 500.2500, L506.1000 #### [facility] [address] [place], [address] CO2 Normal 21.0-32.0 [facility] Comment on above: Result Comment: CMP ORDERED Performed By: #### L 500.2500, L506.1000 #### [facility] [address] [place], [address] CREAT,SERUM Normal 0.70-1.30 [facility] Comment on above: Result Comment: CMP ORDERED Performed By: #### L 500.2500, L506.1000 #### [facility] [address] [place], [address] EST GFR Normal >60 [facility] Comment on above: Result Comment: CMP ORDERED Performed By: #### L 500.2500, L506.1000 #### [facility] [address] [place], [address] EST GFR - AA Normal >60 [facility] Comment on above: Result Comment: CMP ORDERED Performed By: #### L 500.2500, L506.1000 #### [facility] [address] [place], [address] GAP Normal 5-15 [facility] Comment on above: Result Comment: CMP ORDERED Performed By: #### L 500.2500, L506.1000 #### [facility] [address] [place], [address] GLU Normal 74-106 [facility] Comment on above: Result Comment: CMP ORDERED Performed By: #### L 500.2500, L506.1000 #### [facility] [address] [place], [address] Potassium Normal 3.5-5.1 [facility] Comment on above: Result Comment: CMP ORDERED Performed By: #### L 500.2500, L506.1000 #### [facility] [address] [place], [address] Basic Metabolic Profile (BMP) Normal 136-145 [facility] Comment on above: Result Comment: CMP ORDERED Performed By: #### L 500.2500, L506.1000 #### [facility] [address] [place], [address] Basophil percentageOrdered B y: Elmer Arnett on 09-29-2024 Basophils/100 WBC (Bld) 1.1 % High 0-1 [facility] Bilirubin, totalOrdered By: Elmer Arnett on 09-29-2024 Bilirubin [Mass/Vol] 0.50 mg/dL 0.20-1.00 [facility] Comment on above: For patients on eltr ombopag therapy, use of Dimension Sproul TBIL is not recommended. Blood urea nitrogen (BUN)/cr eatinine ratioOrdered By: Elmer Arnett on 09-29-2024 Urea nitrogen/Creatinine [Mass ratio] 15.8 mg/mg 10-20 [facility] CBC W/Diff, Automatedon 09-07 Absolute Lymph 1.69 X10 3/uL Normal 0.83-4.51 [facility] Comment on above: Performed By: #### L 509.1000 #### [facility] [address] [place], [address] Absolute Neut 4.7 X10 3/uL Normal 2.0-7.7 [facility] Comment on above: Performed By: #### L 509.1000 #### [facility] [address] [place], [address] Basophils/100 WBC (Bld) 1.1 % High 0-1 [facility] Comment on above: Performed By: #### L 509.1000 #### [facility] [address] [place], [address] Eosinophils/100 WBC (Bld) 2.6 % Normal 0-5 [facility] Comment on above: Performed By: #### L 509.1000 #### [facility] [address] [place], [address] Erythrocyte distribution width (RBC) [Ratio] 12.6 % Normal 11.6-14.6 [facility] Comment on above: Performed By: #### L 509.1000 #### [facility] [address] [place], [address] Hematocrit (Bld) [Volume fraction] 45.4 % Normal 40-54 [facility] Comment on above: Performed By: #### L 509.1000 #### [facility] [address] [place], [address] Hemoglobin (Bld) [Mass/Vol] 15.2 g/dL Normal 13.0-16.5 [facility] Comment on above: Performed By: #### L 509.1000 #### [facility] [address] [place], [address] IG% 0.900 Normal 0.0-0.9 [facility] Comment on above: Result Comment: IG% - Immature Granulocytes (promyelocytes, myelocytes and metamyelocytes) > 1% indicates that a LEFT SHIFT is Present. Performed By: #### L 509.1000 #### [facility] [address] [place], [address] Lymphocytes/100 WBC (Bld) 22.3 % Normal 19-41 [facility] Comment on above: Performed By: #### L 509.1000 #### [facility] [address] [place], [address] MCH (RBC) [Entitic mass] 32.0 pg Normal 27.0-32.0 [facility] Comment on above: Performed By: #### L 509.1000 #### [facility] [address] [place], [address] MCHC (RBC) [Mass/Vol] 33.5 g/dL Normal 32-36 [facility] Comment on above: Performed By: #### L 509.1000 #### [facility] [address] [place], [address] MCV (RBC) [Entitic vol] 95.6 fL High 80-94 [facility] Comment on above: Performed By: #### L 509.1000 #### [facility] [address] [place], [address] Monocytes/100 WBC (Bld) 11.3 % High 0-10 [facility] Comment on above: Performed By: #### L 509.1000 #### [facility] [address] [place], [address] Neutrophils/100 WBC (Bld) 61.8 % Normal 47-70 [facility] Comment on above: Performed By: #### L 509.1000 #### [facility] [address] [place], [address] Nucleated RBC (Bld) [#/Vol] 0 10*3/uL Normal 0-5 [facility] Comment on above: Performed By: #### L 509.1000 #### [facility] [address] [place], [address] Platelet mean volume (Bld) [Entitic vol] 9.4 fL Normal 6.2-12.0 [facility] Comment on above: Performed By: #### L 509.1000 #### [facility] [address] [place], [address] Platelets (Bld) [#/Vol] 175 10*3/uL Normal 150-450 [facility] Comment on above: Performed By: #### L 509.1000 #### [facility] [address] [place], [address] RBC (Bld) [#/Vol] 4.75 10*6/uL Normal 4.6-6.2 [facility] Comment on above: Performed By: #### L 509.1000 #### [facility] [address] [place], [address] RDW SD 44.2 fl High 35.1-43.9 [facility] Comment on above: Performed By: #### L 509.1000 #### [facility] [address] [place], [address] WBC (Bld) [#/Vol] 7.6 10*3/uL Normal 4.4-11.0 [facility] Comment on above: Performed By: #### L 509.1000 #### [facility] [address] [place], [address] Carbon dioxide measurementOr dered By: Elmer Arnett on 09-29-2024 CO2 [Moles/Vol] 28.0 mmol/L 21.0-32.0 [facility] Chloride measurementOrdered By: Elmer Arnett on 09-29-2024 Chloride [Moles/Vol] 107 mmol/L 98-107 [facility] Comprehensive Metabolic Prof ilon 09-29-2024 Albumin [Mass/Vol] 3.5 g/dL Normal 3.2-5.0 [facility] Comment on above: Performed By: #### L 509.1000 #### [facility] [address] [place], [address] Albumin/Globulin [Mass ratio] 1.0 {ratio} Normal 0.9-2.4 [facility] Comment on above: Performed By: #### L 509.1000 #### [facility] [address] [place], [address] ALK P 62 U/L Normal 45-117 [facility] Comment on above: Performed By: #### L 509.1000 #### [facility] [address] [place], [address] ALT [Catalytic activity/Vol] 68 U/L High 16-61 [facility] Comment on above: Performed By: #### L 509.1000 #### [facility] [address] [place], [address] AST [Catalytic activity/Vol] 40 U/L High 15-37 [facility] Comment on above: Result Comment: Mode rate Hemolysis, Result may be falsely increased. Performed By: #### L 509.1000 #### [facility] [address] [place], [address] Bilirubin [Mass/Vol] 0.50 mg/dL Normal 0.20-1.00 [facility] Comment on above: Result Comment: For patients on eltrombopag therapy, use of Dimension [place] TBIL is not recommended. Performed By: #### L 509.1000 #### [facility] [address] [place], [address] BUN/CRE 15.8 RATIO Normal 10-20 [facility] Comment on above: Performed By: #### L 509.1000 #### [facility] [address] [place], [address] CA,Total 9.0 mg/dL Normal 8.5-10.1 [facility] Comment on above: Performed By: #### L 509.1000 #### [facility] [address] [place], [address] Chloride [Moles/Vol] 107 mmol/L Normal 98-107 [facility] Comment on above: Performed By: #### L 509.1000 #### [facility] [address] [place], [address] CO2 [Moles/Vol] 28.0 mmol/L Normal 21.0-32.0 [facility] Comment on above: Performed By: #### L 509.1000 #### [facility] [address] [place], [address] Creatinine [Mass/Vol] 1.39 mg/dL High 0.70-1.30 [facility] Comment on above: Result Comment: The validity of the calculated GFR GFRAA in patients over 70 years has not been determined. Clinical correlation is essential. Performed By: #### L 509.1000 #### [facility] [address] [place], [address] EST GFR - AA 63 mL/min Normal >60 [facility] Comment on above: Result Comment: Afri can Bangl[place] GFR Calc Performed By: #### L 509.1000 #### [facility] [address] [place], [address] GAP 5 Normal 5-15 [facility] Comment on above: Performed By: #### L 509.1000 #### [facility] [address] [place], [address] GFR/1.73 sq M.predicted among non-blacks MDRD (S/P/Bld) [Vol rate/Area] 52 mL/min/{1.73_m2} Low >60 [facility] Comment on above: Result Comment: Non- GFR Calc Performed By: #### L 509.1000 #### [facility] [address] [place], [address] Globulin (S) [Mass/Vol] 3.6 g/dL Normal 2.2-4.2 [facility] Comment on above: Performed By: #### L 509.1000 #### [facility] [address] [place], [address] Glucose [Mass/Vol] 99 mg/dL Normal 74-106 [facility] Comment on above: Performed By: #### L 509.1000 #### [facility] [address] [place], [address] Potassium [Moles/Vol] 4.2 mmol/L Normal 3.5-5.1 [facility] Comment on above: Result Comment: Mode rate Hemolysis, Result may be falsely increased. Performed By: #### L 509.1000 #### [facility] [address] [place], [address] Sodium [Moles/Vol] 140 mmol/L Normal 136-145 [facility] Comment on above: Performed By: #### L 509.1000 #### [facility] [address] [place], [address] T PROT 7.1 g/dL Normal 6.4-8.2 [facility] Comment on above: Performed By: #### L 509.1000 #### [facility] [address] [place], [address] Urea nitrogen [Mass/Vol] 22 mg/dL High 7-18 [facility] Comment on above: Performed By: #### L 509.1000 #### [facility] [address] [place], [address] Eosinophil percentageOrdered By: Elmer Arnett on 09-29-2024 Eosinophils/100 WBC (Bld) 2.6 % 0-5 [facility] Erythrocyte distribution wid th ratioOrdered By: Elmer Arnett on 09-29-2024 Erythrocyte distribution width (RBC) [Ratio] 12.6 % 11.6-14.6 [facility] Erythrocyte distribution wid th standard deviationOrdered By: Elmer Arnett on 09-29-2024 Erythrocyte distribution width (RBC) [Entitic vol] 44.2 fL High 35.1-43.9 [facility] Estimated glomerular filtrat ion rate (GFR) AmericanOrdered By: Elmer Arnett on 09-29-2024 Estimated GFR (MDRD) Amer 63 mL/min >60 [facility] Comment on above: GFR Calc Glomerular filtration rate ( GFR) estimationOrdered By: Elmer Arnett on 09-29-2024 Estimated GFR (MDRD) Non-Af Amer 52 mL/min Low >60 [facility] Comment on above: Non- GFR Calc Glucose measurementOrdered B y: Elmer Arnett on 09-29-2024 Glucose [Mass/Vol] 99 mg/dL 74-106 [facility] Hematocrit Auto (Bld) [Volum e fraction]Ordered By: Elmer Arnett on 09-29-2024 Hematocrit (Bld) [Volume fraction] 45.4 % 40-54 [facility] Hemoglobin measurementOrdere d By: Elmer Arnett on 09-29-2024 Hemoglobin (Bld) [Mass/Vol] 15.2 g/dL 13.0-16.5 [facility] High density lipoprotein (HD L) measurementOrdered By: Elmer Arnett on 09-29-2024 Cholesterol in HDL [Mass/Vol] 46 mg/dL >40 [facility] Comment on above: The drugs N-Acetylcy steine and Metamizole may falsely depress this assay. Reference Range HDL <40 mg/dL Low HDL Cholesterol HDL >or= 60 mg/dL High HDL Cholesterol Immature granulocytes/100 WB C Auto (Bld)Ordered By: Elmer Arnett on 09-29-2024 Immature granulocytes/100 WBC (Bld) 0.900 % 0.0-0.9 [facility] Comment on above: IG% - Immature Granu locytes (promyelocytes, myelocytes and metamyelocytes) > 1% indicates that a LEFT SHIFT is Present. Laboratory - Chemistry and C hemistry - challengeOrdered By: Elmer Arnett on 09-29-2024 AST [Catalytic activity/Vol] 40 U/L High 15-37 [facility] Comment on above: Moderate Hemolysis, Result may be falsely increased. Lipid Profileon 09-29-2024 Cholesterol [Mass/Vol] 147 mg/dL Normal 200 [facility] Comment on above: Result Comment: <200 mg/dL Desirable 200-240 mg/dL Borderline >240 mg/dL High Risk Performed By: #### L 509.1000 #### [facility] [address] [place], [address] Cholesterol in HDL [Mass/Vol] 46 mg/dL Normal [facility] Comment on above: Result Comment: The drugs N-Acetylcysteine and Metamizole may falsely depress this assay. Reference Range HDL <40 mg/dL Low HDL Cholesterol HDL >or= 60 mg/dL High HDL Cholesterol Performed By: #### L 509.1000 #### [facility] [address] [place], [address] Cholesterol in LDL [Mass/Vol] 49 mg/dL Normal 0-130 [facility] Comment on above: Performed By: #### L 509.1000 #### [facility] [address] [place], [address] Cholesterol in VLDL [Mass/Vol] 52 mg/dL High 5-40 [facility] Comment on above: Performed By: #### L 509.1000 #### [facility] [address] [place], [address] Triglyceride [Mass/Vol] 260 mg/dL High [facility] Comment on above: Result Comment: The drugs N-Acetylcysteine and Metamizole may falsely depress this assay. Serum Triglycerides Reference Interval Normal <150 mg/dL Borderline high 150 - 199 mg/dL High 200 - 499 mg/dL Very High > or = 500 mg/dL Performed By: #### L 509.1000 #### [facility] [address] [place], [address] Low density lipoprotein (LDL ) cholesterol measurementOrdered By: Elmer Arnett on 09-29-2024 Cholesterol in LDL [Mass/Vol] 49 mg/dL 0-130 [facility] Lymphocytes Auto (Unsp spec) [#/Vol]Ordered By: Elmer Arnett on 09-29-2024 Lymphocytes (Bld) [#/Vol] 1.69 10*3/uL 0.83-4.51 [facility] Lymphocytes/100 WBC Auto (Un sp spec)Ordered By: Elmer Arnett on 09-29-2024 Lymphocytes/100 WBC (Bld) 22.3 % 19-41 [facility] MCV (mean corpuscular volume ) determinationOrdered By: Elmer Arnett on 09-29-2024 MCV (RBC) [Entitic vol] 95.6 fL High 80-94 [facility] Mean corpuscular hemoglobin (MCH) determinationOrdered By: Elmer Arnett on 09-29-2024 MCH (RBC) [Entitic mass] 32.0 pg 27.0-32.0 [facility] Mean corpuscular hemoglobin concentration (MCHC) determinationOrdered By: Elmer Arnett on 09-29-2024 MCHC (RBC) [Mass/Vol] 33.5 g/dL 32-36 [facility] Mean platelet volume determi nationOrdered By: Elmer Arnett on 09-29-2024 Platelet mean volume (Bld) [Entitic vol] 9.4 fL 6.2-12.0 [facility] Monocyte percentageOrdered B y: Elmer Arnett on 09-29-2024 Monocytes/100 WBC (Bld) 11.3 % High 0-10 [facility] Neutrophil percentageOrdered By: Elmer Arnett on 09-29-2024 Neutrophils/100 WBC (Bld) 61.8 % 47-70 [facility] Nucleated red blood cell per centageOrdered By: Elmer Arnett on 09-29-2024 Nucleated RBC/100 WBC (Bld) [Ratio] 0 % 0-5 [facility] Platelet countOrdered By: Higinio Arnett on 09-29-2024 Platelets (Bld) [#/Vol] 175 10*3/uL 150-450 [facility] Potassium measurementOrdered By: Elmer Arnett on 09-29-2024 Potassium [Moles/Vol] 4.2 mmol/L 3.5-5.1 [facility] Comment on above: Moderate Hemolysis, Result may be falsely increased. RBC Auto (Bld) [#/Vol]Ordere d By: Elmer Arnett on 09-29-2024 RBC (Bld) [#/Vol] 4.75 10*6/uL 4.6-6.2 [facility] Serum anion gap measurementO rdered By: Elmer Arnett on 09-29-2024 Anion gap [Moles/Vol] 5 mmol/L 5-15 [facility] Serum globulin measurementOr dered By: Elmer Arnett on 09-29-2024 Globulin (S) [Mass/Vol] 3.6 g/dL 2.2-4.2 [facility] Serum or plasma alanine doll otransferase (ALT) measurementOrdered By: Elmer Arnett on 09-29-2024 ALT [Catalytic activity/Vol] 68 U/L High 16-61 [facility] Serum or plasma albumin keesha urement (mass/volume)Ordered By: Elmer Arnett 09-29-2024 Albumin [Mass/Vol] 3.5 g/dL 3.2-5.0 [facility] Serum or plasma alkaline marysol sphatase measurementOrdered By: Elmer Arnett 09-29-2024 ALP [Catalytic activity/Vol] 62 U/L 45-117 [facility] Serum or plasma calcium keesha urement (mass/volume)Ordered By: Elmer Arnett 09-29-2024 Calcium [Mass/Vol] 9.0 mg/dL 8.5-10.1 [facility] Serum or plasma cholesterol measurement (mass/volume)Ordered By: Elmer Arnett 09-29-2024 Cholesterol [Mass/Vol] 147 mg/dL <200 [facility] Comment on above: <200 mg/dL Desirable 200-240 mg/dL Borderline >240 mg/dL High Risk Serum or plasma creatinine m easurement (mass/volume)Ordered By: Elmer Arnett 09-29-2024 Creatinine [Mass/Vol] 1.39 mg/dL High 0.70-1.30 [facility] Comment on above: The validity of the calculated GFR & GFRAA in patients over 70 years has not been determined. Clinical correlation is essential. Serum or plasma urea nitroge n measurement (mass/volume)Ordered By: Elmer Arnett on 09-29-2024 Urea nitrogen [Mass/Vol] 22 mg/dL High 7-18 [facility] Sodium levelOrdered By: Elmer Arnett 09-29-2024 Sodium [Moles/Vol] 140 mmol/L 136-145 [facility] TSH QnOrdered By: Elmer Arnett o n 09-29-2024 Thyroid Stimulating Hormone (TSH) 2.460 uIU/mL 0.358-3.740 [facility] Thyroid Stim Hormone (TSH)on 09-29-2024 TSH 2.460 uIU/mL Normal 0.358-3.740 [facility] Comment on above: Performed By: #### L 509.1000 #### [facility] [address] [facility] [place], [place], [id number] Total proteinOrdered By: Elmer Arnett on 09-29-2024 Protein [Mass/Vol] 7.1 g/dL 6.4-8.2 [facility] Triglycerides measurementOrd ered By: Elmer Arnett on 09-29-2024 Triglyceride [Mass/Vol] 260 mg/dL High <199 [facility] Comment on above: The drugs N-Acetylcy steine and Metamizole may falsely depress this assay.Serum Triglycerides Reference Interval Normal <150 mg/dL Borderline high 150 - 199 mg/dL High 200 - 499 mg/dL Very High > or = 500 mg/dL Very low density lipoprotein (VLDL) cholesterol measurementOrdered By: Elmer Arnett on 09-29-2024 VLDL Cholesterol 52 mg/dL High 5-40 [facility] Vitamin D,25 Hydroxyon 09-29 Vitamin D 25-OH 37.8 ng/mL Normal [facility] Comment on above: Order Comment: SUJEY ARNETT ORDERED CMP. PLEASE CC CMP TO DR. PADILLA AND CC VIT D TO DR. ARNETT Result Comment: Terrie min D 25(OH) Status Range Deficiency <20 ng/mL (50nmol/L) Insufficiency 20 - 30 ng/mL (50 - 75 nmol/L) Sufficiency 30 - 100 ng/mL (75 - 250 nmol/L) Toxicity >100 ng/mL (>250 nmol/L) Performed By: #### L 500.2500, L506.1000 #### [facility] [address] [place], [place], [id number] White blood cell (WBC) count Ordered By: Elmer Arnett on 09-29-2024 WBC (Bld) [#/Vol] 7.6 10*3/uL 4.4-11.0 [facility] 54-GC-Gaqjyid DOrdered By: Jenifer Padilla on 09-15-2024 Vitamin D 25-Hydroxy 28.8 ng/mL [facility] [facility] Comment on above: Vitamin D 25(OH) Sta tus Range Deficiency <20 ng/mL (50nmol/L) Insufficiency 20 - 30 ng/mL (50 - 75 nmol/L) Sufficiency 30 - 100 ng/mL (75 - 250 nmol/L) Toxicity >100 ng/mL (>250 nmol/L) Albumin to globulin ratioOrd ered By: Jared Padilla on 09-15-2024 Albumin/Globulin [Mass ratio] 1.1 {ratio} 0.9-2.4 [facility] Bilirubin, totalOrdered By: Jared Padilla on 09-15-2024 Bilirubin [Mass/Vol] 0.40 mg/dL 0.20-1.00 [facility] Comment on above: For patients on eltr ombopag therapy, use of Dimension [place] TBIL is not recommended. Blood urea nitrogen (BUN)/cr eatinine ratioOrdered By: Jared Padilla on 09-15-2024 Urea nitrogen/Creatinine [Mass ratio] 13.7 mg/mg 10-20 [facility] Carbon dioxide measurementOr dered By: Jared Padilla on 09-15-2024 CO2 [Moles/Vol] 28.0 mmol/L 21.0-32.0 [facility] Chloride measurementOrdered By: Jared Padilla on 09-15-2024 Chloride [Moles/Vol] 110 mmol/L High 98-107 [facility] Comprehensive Metabolic Prof ilon 09-15-2024 Albumin [Mass/Vol] 3.6 g/dL Normal 3.2-5.0 [facility] Comment on above: Performed By: #### L 509.1000 #### [facility] [address] [place], [place], [id number] Albumin/Globulin [Mass ratio] 1.1 {ratio} Normal 0.9-2.4 [facility] Comment on above: Performed By: #### L 509.1000 #### [facility] [address] [place], [address] ALK P 54 U/L Normal 45-117 [facility] Comment on above: Performed By: #### L 509.1000 #### [facility] [address] [place], [address] ALT [Catalytic activity/Vol] 46 U/L Normal 16-61 [facility] Comment on above: Performed By: #### L 509.1000 #### [facility] [address] [place], [address] AST [Catalytic activity/Vol] 22 U/L Normal 15-37 [facility] Comment on above: Performed By: #### L 509.1000 #### [facility] [address] [place], [address] Bilirubin [Mass/Vol] 0.40 mg/dL Normal 0.20-1.00 [facility] Comment on above: Result Comment: For patients on eltrombopag therapy, use of Dimension [place] TBIL is not recommended. Performed By: #### L 509.1000 #### [facility] [address] [place], [address] BUN/CRE 13.7 RATIO Normal 10-20 [facility] Comment on above: Performed By: #### L 509.1000 #### [facility] [address] [place], [address] CA,Total 9.1 mg/dL Normal 8.5-10.1 [facility] Comment on above: Performed By: #### L 509.1000 #### [facility] [address] [place], [address] Chloride [Moles/Vol] 110 mmol/L High 98-107 [facility] Comment on above: Performed By: #### L 509.1000 #### [facility] [address] [place], [address] CO2 [Moles/Vol] 28.0 mmol/L Normal 21.0-32.0 [facility] Comment on above: Performed By: #### L 509.1000 #### [facility] [address] [place], [address] Creatinine [Mass/Vol] 1.17 mg/dL Normal 0.70-1.30 [facility] Comment on above: Result Comment: The validity of the calculated GFR GFRAA in patients over 70 years has not been determined. Clinical correlation is essential. Performed By: #### L 509.1000 #### [facility] [address] [place], [address] EST GFR - AA 77 mL/min Normal >60 [facility] Comment on above: Result Comment: Afri can Bangladeshi GFR Calc Performed By: #### L 509.1000 #### [facility] [address] [place], [address] GAP 4 Low 5-15 [facility] Comment on above: Performed By: #### L 509.1000 #### [facility] [address] [place], [address] GFR/1.73 sq M.predicted among non-blacks MDRD (S/P/Bld) [Vol rate/Area] 64 mL/min/{1.73_m2} Normal >60 [facility] Comment on above: Result Comment: Non- GFR Calc Performed By: #### L 509.1000 #### [facility] [address] [place], [address] Globulin (S) [Mass/Vol] 3.2 g/dL Normal 2.2-4.2 [facility] Comment on above: Performed By: #### L 509.1000 #### [facility] [address] [place], [address] Glucose [Mass/Vol] 88 mg/dL Normal 74-106 [facility] Comment on above: Performed By: #### L 509.1000 #### [facility] [address] [place], [address] Potassium [Moles/Vol] 3.8 mmol/L Normal 3.5-5.1 [facility] Comment on above: Performed By: #### L 509.1000 #### [facility] [address] [place], [address] Sodium [Moles/Vol] 141 mmol/L Normal 136-145 [facility] Comment on above: Performed By: #### L 509.1000 #### [facility] [address] [place], [address] T PROT 6.8 g/dL Normal 6.4-8.2 [facility] Comment on above: Performed By: #### L 509.1000 #### [facility] [address] [place], [address] Urea nitrogen [Mass/Vol] 16 mg/dL Normal 7-18 [facility] Comment on above: Performed By: #### L 509.1000 #### [facility] [address] [place], [address] Estimated glomerular filtrat ion rate (GFR) AmericanOrdered By: Jared Padilla on 09-15-2024 Estimated GFR (MDRD) Amer 77 mL/min >60 [facility] Comment on above: GFR Calc Glomerular filtration rate ( GFR) estimationOrdered By: Jared Padilla on 09-15-2024 Estimated GFR (MDRD) Non-Af Amer 64 mL/min >60 [facility] Comment on above: Non- GFR Calc Glucose measurementOrdered B y: Jared Padilla on 09-15-2024 Glucose [Mass/Vol] 88 mg/dL 74-106 [facility] Intact parathyroid hormone ( iPTH) measurementOrdered By: Jared Padilla on 09-15-2024 Parathyroid Hormone (Intact) 30.1 pg/mL 18.4-80.1 [facility] L501.0895on 09-15-2024 Calcium [Mass/Vol] 9.2 mg/dL Normal 8.5-10.1 [facility] Comment on above: Performed By: #### L 501.5200, L501.0895 #### [facility] [address] [place], [place], [address] Laboratory - Chemistry and C hemistry - challengeOrdered By: Jared Padilla on 09-15-2024 AST [Catalytic activity/Vol] 22 U/L 15-37 [facility] Magnesiumon 09-15-2024 Magnesium [Mass/Vol] 2.4 mg/dL Normal 1.6-2.6 [facility] Comment on above: Performed By: #### L 501.5200, L501.0895 #### [facility] [address] [place], [place], [address] Magnesium measurementOrdered By: Migdalia Dunlap on 09-15-2024 Magnesium [Mass/Vol] 2.4 mg/dL 1.6-2.6 [facility] PTHINon 09-15-2024 PTH 30.1 pg/mL Normal 18.4-80.1 [facility] Comment on above: Performed By: #### L 509.1000 #### [facility] [address] [place], [place], [address] Potassium measurementOrdered By: Jared Padilla on 09-15-2024 Potassium [Moles/Vol] 3.8 mmol/L 3.5-5.1 [facility] Serum anion gap measurementO rdered By: Jared Padilla on 09-15-2024 Anion gap [Moles/Vol] 4 mmol/L Low 5-15 [facility] Serum globulin measurementOr dered By: Jared Padilla on 09-15-2024 Globulin (S) [Mass/Vol] 3.2 g/dL 2.2-4.2 [facility] Serum or plasma alanine doll otransferase (ALT) measurementOrdered By: Jared Padilla on 09-15-2024 ALT [Catalytic activity/Vol] 46 U/L 16-61 [facility] Serum or plasma albumin keesha urement (mass/volume)Ordered By: Jared Padilla on 09-15-2024 Albumin [Mass/Vol] 3.6 g/dL 3.2-5.0 [facility] Serum or plasma alkaline marysol sphatase measurementOrdered By: Jared Padilla on 09-15-2024 ALP [Catalytic activity/Vol] 54 U/L 45-117 [facility] Serum or plasma calcium keesha urement (mass/volume)Ordered By: Migdalia Dunlap on 09-15-2024 Calcium [Mass/Vol] 9.2 mg/dL 8.5-10.1 [facility] Serum or plasma creatinine m easurement (mass/volume)Ordered By: Jared Padilla on 09-15-2024 Creatinine [Mass/Vol] 1.17 mg/dL 0.70-1.30 [facility] Comment on above: The validity of the calculated GFR & GFRAA in patients over 70 years has not been determined. Clinical correlation is essential. Serum or plasma urea nitroge n measurement (mass/volume)Ordered By: Jared Padilla on 09-15-2024 Urea nitrogen [Mass/Vol] 16 mg/dL 7-18 [facility] Sodium levelOrdered By: Jared Padilla on 09-15-2024 Sodium [Moles/Vol] 141 mmol/L 136-145 [facility] Total proteinOrdered By: Jonny Padilla on 09-15-2024 Protein [Mass/Vol] 6.8 g/dL 6.4-8.2 [facility] Vitamin D,25 Hydroxyon 09-15 Vitamin D 25-OH 28.8 ng/mL Normal [facility] Comment on above: Result Comment: Terrie min D 25(OH) Status Range Deficiency <20 ng/mL (50nmol/L) Insufficiency 20 - 30 ng/mL (50 - 75 nmol/L) Sufficiency 30 - 100 ng/mL (75 - 250 nmol/L) Toxicity >100 ng/mL (>250 nmol/L) Performed By: #### L 509.1000 #### [facility] [address] [place], [address] Calcium,Totalon 09-10-2024 CA,Total 10.1 mg/dL Normal 8.5-10.1 [facility] Comment on above: Performed By: #### L 501.2200, L509.1000 ####[facility] [address] [place], [address] Intact parathyroid hormone ( iPTH) measurementOrdered By: Migdalia Dunlap on 09-10-2024 Parathyroid Hormone (Intact) 10.9 pg/mL Low 18.4-80.1 [facility] PTHINon 09-10-2024 PTH 10.9 pg/mL Low 18.4-80.1 [facility] Comment on above: Performed By: #### L 501.2200, L509.1000 ####[facility] [address] [place], [address] Serum or plasma calcium keesha urement (mass/volume)Ordered By: Migdalia Dunlap on 09-10-2024 Calcium [Mass/Vol] 10.1 mg/dL 8.5-10.1 [facility] Calcium,Totalon 09-03-2024 CA,Total 11.4 mg/dL High 8.5-10.1 [facility] Comment on above: Performed By: #### L 509.1000, L501.2200 ####[facility] [address] [place], [address] Intact parathyroid hormone ( iPTH) measurementOrdered By: Kamaljit Koehler on 09-03-2024 Parathyroid Hormone (Intact) 6.7 pg/mL Low 18.4-80.1 [facility] PTHINon 09-03-2024 PTH 6.7 pg/mL Low 18.4-80.1 [facility] Comment on above: Performed By: #### L 509.1000, L501.2200 ####[facility] [address] [place], [address] Serum or plasma calcium keesha urement (mass/volume)Ordered By: Kamaljit Koehler on 09-03-2024 Calcium [Mass/Vol] 11.4 mg/dL High 8.5-10.1 [facility] Surgery Visit Reporton 09-03 Surgery Visit Report [facility] [address] [place] [address] OFFICE VISIT Date of Service: 09/03/24 MR#: [id number] Acct: [id number] Name: YAHAIRA PÉREZ Rep #: [id number] : 1945 Provider: Dr. 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 Normal [facility] Discharge Instructionon 08-06 Discharge Instruction [facility] Medical Records Department [address] [place] [address] Instructions for Home/Discharge Instructions 08/22/24 1209 MR#: [id number] Acct: [id number] Name: YAHAIRA PÉREZ Rep #: [id number] : 1945 78 From: Kamaljit Koehler MD PCP: Dr. Elmer Arnett MD Status:DEP [facility] Discharge Instructions Diet Discharge Diet: No restrictions [...] Provider: Kamaljit Koehler Primary Care Provider: Elmer Arnett [employer] Providers: Live Muñoz Instructions Print Language: Upper Sorbian Discharge Orders/Prescriptions Prescriptions: New calcium carbonate-vitamin D3 [Os-Carlos Eduardo 500 + D3] 500 mg-15 mcg (600 unit) tablet 2 tab PO BID 15 Days Qty: 60 0RF calcitriol 0.25 mcg capsule 0.25 mcg PO DAILY 15 Days Qty: 15 0RF Continued rosuvastatin 40 mg tablet 40 mg PO DAILY aspirin 81 mg tablet,delayed release (DR/EC) 81 mg PO DAILY omega 6-gsl-ott-fish oil [Fish Oil] 1,200 (144-216) mg capsule [...] Live Muñoz Referrals / Follow Up: Elmer Arnett Chi, MD [Primary Care Provider] - Disposition Disposition (needs filled in before D/C Order can be placed): Home, Self Care 08/22/24 0504 Kamaljit Koehler MD CC: Dr. Live Muñoz MD; Dr. Elmer Arnett MD Signed Normal [facility] Frozen Section (charge)on Frozen Section (charge) ------ ---- Patient Age/Sex Location Account Attending Physician ---- YAHAIRA PÉREZ 78/M [facility] [id number] Dr. Kamaljit Koehler MD ---- Specimen: [id number] Received: 08/22/24 Status: KENDRA Roach Num: [id number] Spec Type: PARATHY Subm Dr: Dr. Kamaljit [...] gland, excision: Hyperplastic parathyroid gland tissue (0.188gm). .mr 08/25/2024 COMMENT A. Unremarkable parathyroid tissue is also noted at the periphery of the hyperplastic parathyroid gland tissue. Findings may represent parathyroid adenoma. MICROSCOPIC DESCRIPTION Slides are reviewed. ---- Patient Age/Sex Location Account Attending Physician ---- YAHAIRA PÉREZ 78/M [facility] [id number] Dr. Kamaljit Koehler MD ---- GROSS DESCRIPTION [...] frozen section diagnosis in one cassette. 08/22/2024 TC:[id number] ---- Patient Age/Sex Location Account Attending Physician ---- YAHAIRA PÉREZ 78/M [facility] [id number] Dr. Kamaljit Koehler MD ---- Signed (signature on file) Dr. Jay Olivera MD 08/25/24 1309 ---- Normal [facility] Comment on above: Performed By: #### P FSC ####[facility] [address] [place], [place], [address] Intact parathyroid hormone ( iPTH) measurementOrdered By: Kamaljit Koehler on 08-22-2024 Parathyroid Hormone (Intact) 9.2 pg/mL Low 18.4-80.1 [facility] MR/POSTOP.ANEon 08-22-2024 MR/POSTOP.ANE [facility] Medical Records Department [address] [place] [address] Anesthesia Postop Eval I 08/22/24 1217 MR#: [id number] Acct: [id number] Name: BETOYAHAIRA Mena Rep #: [id number] : 1945 78 From: Neha Cardona CRNA PCP: Dr. Elmer Arnett MD Status:REG SDC Y Race: C Location: [place] [address] Anesthesia: Postop Eval I Current Vital Signs [...] completed: Yes 08/22/24 1218 Date Neha Cardona COUNTY TAX ASSESSOR Cosigner Signature: Date CC: Signed Normal [facility] MR/SWVTCAHE3sm 08-22-2024 MR/POSTOPAN2 [facility] Medical Records Department [address] [place] [address] Anesthesia Postop Eval II 08/22/24 1241 MR#: [id number] Acct: [id number] Name: BETOYAHAIRA Rep #: [id number] : 1945 78 From: Kael Melissa MD PCP: Dr. Elmer Arnett MD Status:REG SDC Y Race: C Location: [place] [address] Anesthesia Postop Eval I Sum Postop Eval Completion status Anesthesia document: Postop Eval 1 completed: Yes Anesthesia Postop Eval I Summary Anesthesia Postop Eval I Summary: Anesthesia Postop Eval I: Assessment Summary Airway patent Yes 08/22/24 12:18 COUNTY TAX ASSESSOR.JSWI Spontaneous unlabored Yes 08/22/24 12:18 COUNTY TAX ASSESSOR.JSWI respirations Mental status Asleep 08/22/24 12:18 COUNTY TAX ASSESSOR.JSWI nausea No 08/22/24 12:18 COUNTY TAX ASSESSOR.JSWI Vomiting No 08/22/24 12:18 COUNTY TAX ASSESSOR.JSWI Anesthesia Postop Eval I: Fluid Summary Crystalloid volume administer 1,400 08/22/24 12:18 COUNTY TAX ASSESSOR.JSWI (ml) Colloids volume administered ( ml) Blood Product volume administered (ml) Total IV fluid infused 1,400 08/22/24 12:18 COUNTY TAX ASSESSOR.JSWI Anesthesia Postop Eval I: Summary Notes Anesthesia Complication No 08/22/24 12:18 COUNTY TAX ASSESSOR.JSWI Anesthesia Complication Comment: Post-operative progress note Anesthesia: Postop Eval II Evaluation Mental status: Awake and Calm Pain Level: 1 nausea: No Vomiting: No Complications Anesthesia Complication: No 08/22/24 1242 Date Kael Melissa MD Cosigner Signature: Date CC: Signed Normal [facility] Operative Reporton 5 Operative Report [facility] Medical Records Department [address] [place] [address] Operative Report 08/22/24 1206 MR#: [id number] Acct: [id number] Name: YAHAIRA PÉREZ Rep #: [id number] : 1945 78 From: Kamaljit Koehler MD PCP: Dr. 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 Normal [facility] PTHINon 08-22-2024 PTH 9.2 pg/mL Low 18.4-80.1 [facility] Comment on above: Performed By: #### L 509.1000 #### [facility] [address] [place], [address] PTH 17.2 pg/mL Low 18.4-80.1 [facility] Comment on above: Performed By: #### L 509.1000 #### [facility] [address] [place], [address] PTH 19.6 pg/mL Normal 18.4-80.1 [facility] Comment on above: Performed By: #### L 509.1000 #### [facility] [address] [place], [address] PTH 71.2 pg/mL Normal 18.4-80.1 [facility] Comment on above: Performed By: #### L 509.1000 #### [facility] [address] [place], [address] PTH 91.6 pg/mL High 18.4-80.1 [facility] Comment on above: Performed By: #### L 509.1000 #### [facility] [address] [place], [address] PTH 95.3 pg/mL High 18.4-80.1 [facility] Comment on above: Performed By: #### L 509.1000 #### [facility] [address] [place], [address] PTH 241.0 pg/mL High 18.4-80.1 [facility] Comment on above: Performed By: #### L 509.1000 #### [facility] [address] [place], [address] PTH 159.0 pg/mL High 18.4-80.1 [facility] Comment on above: Order Comment: NEEDE D @MADE UP. SPOKE WITH SURGERY(MELLISA?) AT 730 TO ERWIN KNOW OF @DELAY. SHE SAID IT WAS OK THEY JUST WANTED APRE-OP PTH. Performed By: #### L 509.1000 #### [facility] [address] [place], [address] 12 Lead EKGon 08-15-2024 12 Lead EKG [facility] Cardiovascular Services [address] [place] [address] 12 Lead EKG 08/15/24 0751 MR#: [id number] Acct: [id number] Name: YAHAIRA PÉREZ Rep #: [id number] : 1945 78 From: Kamaljit Hendricks MD Attending Dr: Dr. Kamaljit Koehler MD Status: PRE [facility] Ordering Dr: Liev Muñoz MD Date: 08/15/24 Location: [facility] Sex: M C Admitted: Test Reason : [...] Abnormal ECG Confirmed by Kamaljit Hendricks ([id number]), scientific publications editor AICHA MARIE ([id number]) on 08/15/2024 12:59:25 PM Referred By: Kamaljit Koehler Confirmed By: Kamaljit Hendricks 08/15/24 1259 Date Kamaljit Hendricks MD CC: Dr. Live Muñoz MD; Dr. Kamaljit Koehler MD; Dr. Elmer Arnett MD Signed Normal [facility] Basic Metabolic Profile (BMP )on 08-15-2024 BUN/CRE 15.5 RATIO Normal 10-20 [facility] Comment on above: Performed By: #### L 509.1000 #### [facility] [address] [place], [address] CA,Total 11.1 mg/dL High 8.5-10.1 [facility] Comment on above: Performed By: #### L 509.1000 #### [facility] [address] [place], [address] Chloride [Moles/Vol] 110 mmol/L High 98-107 [facility] Comment on above: Performed By: #### L 509.1000 #### [facility] [address] [place], [address] CO2 [Moles/Vol] 26.0 mmol/L Normal 21.0-32.0 [facility] Comment on above: Performed By: #### L 509.1000 #### [facility] [address] [place], [address] Creatinine [Mass/Vol] 1.29 mg/dL Normal 0.70-1.30 [facility] Comment on above: Result Comment: The validity of the calculated GFR GFRAA in patients over 70 years has not been determined. Clinical correlation is essential. Performed By: #### L 509.1000 #### [facility] [address], [address] EST GFR - AA 69 mL/min Normal >60 [facility] Comment on above: Result Comment: Afri can Bangladeshi GFR Calc Performed By: #### L 509.1000 #### [facility] [address] [place], [address] GAP 2 Low 5-15 [facility] Comment on above: Performed By: #### L 509.1000 #### [facility] [address] [place], [address] GFR/1.73 sq M.predicted among non-blacks MDRD (S/P/Bld) [Vol rate/Area] 57 mL/min/{1.73_m2} Low >60 [facility] Comment on above: Result Comment: Non- GFR Calc Performed By: #### L 509.1000 #### [facility] [address] [place], [address] Glucose [Mass/Vol] 134 mg/dL High 74-106 [facility] Comment on above: Result Comment: Fast ing Glucose result greater than or equal to 126 mg/dL suggests DIABETES MELLITUS per A.D.A. criteria. Performed By: #### L 509.1000 #### [facility] [address] [place], [address] Potassium [Moles/Vol] 4.6 mmol/L Normal 3.5-5.1 [facility] Comment on above: Performed By: #### L 509.1000 #### [facility] [address] [place], [address] Sodium [Moles/Vol] 139 mmol/L Normal 136-145 [facility] Comment on above: Performed By: #### L 509.1000 #### [facility] [address] [place], [address] Urea nitrogen [Mass/Vol] 20 mg/dL High 7-18 [facility] Comment on above: Performed By: #### L 509.1000 #### [facility] [address] [place], [address] Blood urea nitrogen (BUN)/cr eatinine ratioOrdered By: Live Muñoz on 08-15-2024 Urea nitrogen/Creatinine [Mass ratio] 15.5 mg/mg 10-20 [facility] CBC-Complete Blood Cnt No Di ffon 08-15-2024 Erythrocyte distribution width (RBC) [Ratio] 12.8 % Normal 11.6-14.6 [facility] Comment on above: Performed By: #### L 509.1000 #### [facility] [address] [place], [address] Hematocrit (Bld) [Volume fraction] 50.6 % Normal 40-54 [facility] Comment on above: Performed By: #### L 509.1000 #### [facility] [address] [place], [address] Hemoglobin (Bld) [Mass/Vol] 16.6 g/dL High 13.0-16.5 [facility] Comment on above: Performed By: #### L 509.1000 #### [facility] [address] [place], [address] MCH (RBC) [Entitic mass] 31.6 pg Normal 27.0-32.0 [facility] Comment on above: Performed By: #### L 509.1000 #### [facility] [address] [place], [address] MCHC (RBC) [Mass/Vol] 32.8 g/dL Normal 32-36 [facility] Comment on above: Performed By: #### L 509.1000 #### [facility] [address] [place], [address] MCV (RBC) [Entitic vol] 96.4 fL High 80-94 [facility] Comment on above: Performed By: #### L 509.1000 #### [facility] [address] [place], [address] Platelet mean volume (Bld) [Entitic vol] 9.3 fL Normal 6.2-12.0 [facility] Comment on above: Performed By: #### L 509.1000 #### [facility] [address] [place], [address] Platelets (Bld) [#/Vol] 179 10*3/uL Normal 150-450 [facility] Comment on above: Performed By: #### L 509.1000 #### [facility] [address] [place], [address] RBC (Bld) [#/Vol] 5.25 10*6/uL Normal 4.6-6.2 [facility] Comment on above: Performed By: #### L 509.1000 #### [facility] [address] [place], [address] RDW SD 45.4 fl High 35.1-43.9 [facility] Comment on above: Performed By: #### L 509.1000 #### [facility] [address] [place], [address] WBC (Bld) [#/Vol] 5.8 10*3/uL Normal 4.4-11.0 [facility] Comment on above: Performed By: #### L 509.1000 #### [facility] [address] [place], [address] Carbon dioxide measurementOr dered By: Live Muñoz on 08-15-2024 CO2 [Moles/Vol] 26.0 mmol/L 21.0-32.0 [facility] Chloride measurementOrdered By: Live Muñoz on 08-15-2024 Chloride [Moles/Vol] 110 mmol/L High 98-107 [facility] Erythrocyte distribution wid th ratioOrdered By: Live Muñoz on 08-15-2024 Erythrocyte distribution width (RBC) [Ratio] 12.8 % 11.6-14.6 [facility] Erythrocyte distribution wid th standard deviationOrdered By: Live Muñoz on 08-15-2024 Erythrocyte distribution width (RBC) [Entitic vol] 45.4 fL High 35.1-43.9 [facility] Estimated glomerular filtrat ion rate (GFR) AmericanOrdered By: Live Muñoz on 08-15-2024 Estimated GFR (MDRD) Amer 69 mL/min >60 [facility] Comment on above: GFR Calc Glomerular filtration rate ( GFR) estimationOrdered By: Live Muñoz on 08-15-2024 Estimated GFR (MDRD) Non-Af Amer 57 mL/min Low >60 [facility] Comment on above: Non- GFR Calc Glucose measurementOrdered B y: Live Muñoz on 08-15-2024 Glucose [Mass/Vol] 134 mg/dL High 74-106 [facility] Comment on above: Fasting Glucose resu lt greater than or equal to 126 mg/dL suggests DIABETES MELLITUS per A.D.A. criteria. Hematocrit Auto (Bld) [Volum e fraction]Ordered By: Live Muñoz on 08-15-2024 Hematocrit (Bld) [Volume fraction] 50.6 % 40-54 [facility] Hemoglobin measurementOrdere d By: Live Muñoz on 08-15-2024 Hemoglobin (Bld) [Mass/Vol] 16.6 g/dL High 13.0-16.5 [facility] MCV (mean corpuscular volume ) determinationOrdered By: Live Muñoz on 08-15-2024 MCV (RBC) [Entitic vol] 96.4 fL High 80-94 [facility] Mean corpuscular hemoglobin (MCH) determinationOrdered By: Lvie Muñoz on 08-15-2024 MCH (RBC) [Entitic mass] 31.6 pg 27.0-32.0 [facility] Mean corpuscular hemoglobin concentration (MCHC) determinationOrdered By: Live Muñoz on 08-15-2024 MCHC (RBC) [Mass/Vol] 32.8 g/dL 32-36 [facility] Mean platelet volume determi nationOrdered By: Live Muñoz on 08-15-2024 Platelet mean volume (Bld) [Entitic vol] 9.3 fL 6.2-12.0 [facility] PTHINon 08-15-2024 PTH 149.1 pg/mL High 18.4-80.1 [facility] Comment on above: Performed By: #### L 509.1000 #### [facility] [address] [place] [address], [address] Platelet countOrdered By: Salvador Muñoz on 08-15-2024 Platelets (Bld) [#/Vol] 179 10*3/uL 150-450 [facility] Potassium measurementOrdered By: Live Muñoz on 08-15-2024 Potassium [Moles/Vol] 4.6 mmol/L 3.5-5.1 [facility] RBC Auto (Bld) [#/Vol]Ordere d By: Live Muñoz on 08-15-2024 RBC (Bld) [#/Vol] 5.25 10*6/uL 4.6-6.2 [facility] Serum anion gap measurementO rdered By: Live Muñoz on 08-15-2024 Anion gap [Moles/Vol] 2 mmol/L Low 5-15 [facility] Serum or plasma calcium keesha urement (mass/volume)Ordered By: Live Muñoz on 08-15-2024 Calcium [Mass/Vol] 11.1 mg/dL High 8.5-10.1 [facility] Serum or plasma creatinine m easurement (mass/volume)Ordered By: Live Muñoz on 08-15-2024 Creatinine [Mass/Vol] 1.29 mg/dL 0.70-1.30 [facility] Comment on above: The validity of the calculated GFR & GFRAA in patients over 70 years has not been determined. Clinical correlation is essential. Serum or plasma urea nitroge n measurement (mass/volume)Ordered By: Live Muñoz on 08-15-2024 Urea nitrogen [Mass/Vol] 20 mg/dL High 7-18 [facility] Sodium levelOrdered By: Live Muñoz on 08-15-2024 Sodium [Moles/Vol] 139 mmol/L 136-145 [facility] White blood cell (WBC) count Ordered By: Live Muñoz on 08-15-2024 WBC (Bld) [#/Vol] 5.8 10*3/uL 4.4-11.0 [facility] MR/PAT.ANEon 08-14-2024 MR/PAT.LUC [facility] Medical Records Department [address] [place] [address] PAT - Anesthesia 08/14/24 1434 MR#: [id number] Acct: [id number] Name: YAHAIRA PÉREZ Rep #: [id number] : 1945 78 From: Live Muñoz MD PCP: Dr. Elmer Arnett MD Status:PRE [facility] Y Race: C Location: [facility] ADDENDUM by Dr. Live Muñoz MD on [...] PARATHYROID HORMONE Anesthesia History Anesthesia History - house repairer: Anesthesia History - house repairer Hx Hospitalization No 08/14/24 13:38 Any Problems [...] take am of surgery PONV PONV - house repairer: PONV - house repairer Female No 08/14/24 13:38 HX of Motion [...] 08/01/24 08:11 Respiratory Assessment Respiratory Assessment - house repairer: Respiratory Tract Infection Hx - house repairer Hx Respiratory Tract Infection No 08/14/24 13:38 STOP Sleep Apnea STOP Sleep Apnea - house repairer: STOP Sleep Apnea - house repairer Hx Hypertension Yes 08/14/24 13:38 Hx Sleep [...] Tobacco Use History Tobacco Use History - house repairer: Tobacco Use History - house repairer Tobacco Use Smoking Status Never smoker 08/14/24 13:38 Hx Tobacco Use No 08/14/24 13:38 Years Smoking Packs Smoked per Day Smoking Cessation Date was within the last 15 years Hx Smoking Cessation Date Hx Smoking Cessation Counseling Hematologic Medial History Hematologic Hx - house repairer: Hematologic Medical Hx - outside sales account manager Hx of Blood Transfusion No 08/14/24 13:38 Hx of Transfusion in last 3 No 08/14/24 13:38 Months Date of Last Transfusion (if within last 3 months) Ever experience any problems No 08/14/24 13:38 with transfusion(s)? Specify any problems Hx of Preganancy in last 3 N/A 08/14/24 13:38 Months Nurse Filling Out Transfusion [facility] 08/14/24 13:38 Questions: Date: 08/14/24 08/14/24 13:38 Time: 13:45 08/14/24 13:38 Patient unable to answer at this time (ie. confused, unrespo /Reproduction History /Reproductive History - house repairer: /Reproductive Hx- house repairer Hx Now Gestational Age (in weeks): EDC: Hx Hx Para Hx Section SAB No 12/06/21 14:57 PFS Medical History (Updated 08/14/24 @ 13:45 by Edilia Galloway) Wears hearing aid Wears dentures Wears glasses High cholesterol Non-smoker CPAP (continuous positive airway pressure) dependence Sleep apnea Cardiology follow-up encounter COVID-19 ( 09/2022) MARLYS on CPAP Vitamin D deficiency Atherosclerosis of coronary artery of [place] heart without angina pectoris Primary hyperparathyroidism History of deep vein thrombosis of lower extremity Kidney stones Condyloma acuminata Hyperlipidemia Hyperparathyroidism RLS (restless legs syndrome) Sleep apnea Dog bite DVT (deep (more content not included)... Normal [facility] Surgery Visit Reporton 08-01 Surgery Visit Report [facility] [address] [place] [address]. [address] [place] [address] OFFICE VISIT Date of Service: 08/01/24 MR#: [id number] Acct: [id number] Name: YAHAIRA PÉREZ Rep #: [id number] : 1945 Provider: Dr. Kamaljit sloan MD Age/Sex: 78/M Location: [facility] Status: Signed Intake Vital Signs 06/10/24 12:58 08/01/24 08:11 Height 5 ft 9 in 5 ft 9 in Weight: 195 lb 193 lb BMI 28.8 28.5 BP 143/74 H 162/69 H Blood Pressure Location Rt brachial Rt brachial Position Sitting Sitting Respiration 18 16 Intake Visit Reasons: DISCUSS SURGERY Chief Complaint: discuss results and surgery Radiology Manager Required: No Is patient in pain?: No [...] 08/01/24 History mcg (1,000 unit) tablet omega 9-nto-xdo-fish oil 1,200 mg cap PO BID 05/13/24 08/01/24 History (144 mg-216 mg) capsule (Fish Oil) Have you fallen in the past year?: No PFSH Medical History COVID-19 ( 09/2022) MARLYS on CPAP Vitamin D deficiency Atherosclerosis of coronary artery of lower [place] heart without angina pectoris Primary hyperparathyroidism History [...] the interim since his last visit Mr. Pérez completed a SPECT-CT with sestamibi 07/17/2024 with the following result: 1. ABNORMAL 99m Tc SESTAMIBI [id number] PARATHYROID IMAGING DUAL PHASE EXAMINATION. 2. 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 Patient has a history of prior radiation exposure which she states was related to his time in the [employer] business but insist that appropriate PPE was always used per OSHA. Patient has no family history of other endocrinopathies Patient does not have a diet high in dairy???citing limited intake of cheese and ice cream (more content not included)... Normal [facility] Parathyroid SPECT w/ CONCUR CTon 07-17-2024 Parathyroid SPECT w/ CONCUR CT [facility] Imaging Services [address] [place] [address] Parathyroid SPECT w/ CONCUR CT MR#: [id number] Acct: [id number] Name: YAHAIRA PÉREZ Rep #: [id number] : 1945 M 78 From: Sae Stiles PCP: Dr. lEmer Arnett MD Status: REG CLI Study: Parathyroid SPECT w/ CONCUR CT Date of Exam: 09/17/23 Exam# [id number] Ordering Dr: Kamaljit Koehler MD [id number] CLINICAL: 78-year-old male with clinical hyperparathyroidism. 99m [...] CT IMPRESSION: 1. ABNORMAL 99m Tc SESTAMIBI [id number] PARATHYROID IMAGING DUAL PHASE EXAMINATION. 2. 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 Electronically Signed: Sae Anderson DO at 10:39 EST , CC: Dr. Kamaljit Koehler MD; Dr. Elmer Arnett MD Java Developer Consultant: Signed Normal [facility] Influenza virus A and B and SARS-CoV-2 (COVID-19) and Respiratory syncytial virus RNAOrdered By: Elmre Arnett on 06-13-2024 SARS-CoV-2 (COVID-19) RNA SUHAIL+probe Ql (Unsp spec) [facility] M100.678on 06-13-2024 M100.678 Pending SARS-CoV-2 (COVID 19) Negative INFLUENZA A Negative INFLUENZA B Negative RSV PCR Negative Normal [facility] Comment on above: Performed By: #### M 100.678 ####[facility] [address] [place], [address] Surgery Visit Reporton 06-10 Surgery Visit Report [facility] [address] [place] [address] OFFICE VISIT Date of Service: 06/10/24 MR#: [id number] Acct: [id number] Name: YAHAIRA PÉREZ Rep #: [id number] : 1945 Provider: Dr. 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 Patient has a history of prior radiation exposure which she states was related to his time in the [employer] but insist that appropriate PPE was always [...] glands or (more content not included)... Normal [facility] Thyroidon 05-29-2024 Thyroid [facility] [address] [place] [address] Thyroid MR#: [id number] Acct: [id number] Name: YAHAIRA PÉREZ Rep #: [id number] : 1945 M 78 From: Jona Espino MD PCP: Dr. Elmer Arnett MD Status: REG CLI Study: Thyroid Date of Exam: 05/29/24 Exam# [id number] Ordering Dr: Jared Padilla [place] [id number] STUDY: THYROID ULTRASOUND REASON FOR EXAM: Male, [...] at 10:14 EDT , CC: Dr. Elmer Arnett MD; Dr. 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 [place] [address] OFFICE VISIT Date of Service: 05/13/24 MR#: [id number] Acct: [id number] Name: YAHAIRA PÉREZ Rep #: [id number] : 1945 Provider: Ness Camacho Age/Sex: 78/M Location: [facility] Status: Signed Intake Vital Signs 09/13/23 08:20 [...] 05/13/24 History mcg (1,000 unit) tablet omega 0-cck-loi-fish oil 1,200 mg cap PO BID 05/13/24 05/13/24 History (144 mg-216 mg) capsule (Fish Oil) Have you fallen in the past year?: No PFSH Medical History COVID-19 ( 09/2022) MARLYS on CPAP Vitamin D deficiency Atherosclerosis of coronary artery of [place] heart without angina pectoris Primary hyperparathyroidism History [...] Chief Complaint: Primary hyperparathyroidism/rakesh ne Details: YAHAIRA PÉREZ, is a 78 M who presents to the office today for follow up. Original history from 09/29: abs: Calcium levels-- .6 2019/11.2 2021/10.2 5,11.0 9,11.8 Vitamin D 30 PTH 126 eGFR 69 [...] stents. He states he hasn't seen a er tech, however I see that he had an [...] comfortable, no (more content not included)... Normal [facility] Absolute lymphocyte countOrd ered By: Elmer Arnett on 09-26-2023 Lymphocytes Auto (Unsp spec) [#/Vol] 1.36 10*3/uL 0.83-4.51 [facility] Automated lymphocyte count a s percentage of total leukocytesOrdered By: Elmer Arnett on 09-26-2023 Lymphocytes/100 WBC Auto (Unsp spec) 18.6 % 19-41 [facility] Basophil percentageOrdered B y: Elmer Arnett on 09-26-2023 Basophils/100 WBC (Bld) 0.8 % 0-1 [facility] Bilirubin [Mass/Vol] 0.70 mg/dL 0.20-1.00 [facility] Comment on above: For patients on eltr ombopag therapy, use of Dimension [place] TBIL is not recommended. Chloride [Moles/Vol] 110 mmol/L 98-107 [facility] Cholesterol [Mass/Vol] 137 mg/dL <200 [facility] Comment on above: <200 mg/dL Desirable 200-240 mg/dL Borderline >240 mg/dL High Risk Eosinophils/100 WBC (Bld) 2.7 % 0-5 [facility] Glucose [Mass/Vol] 87 mg/dL 74-106 [facility] Hemoglobin (Bld) [Mass/Vol] 15.6 g/dL 13.0-16.5 [facility] Monocytes/100 WBC (Bld) 12.6 % 0-10 [facility] Neutrophils (Bld) [#/Vol] 4.8 10*3/uL 2.0-7.7 [facility] Neutrophils/100 WBC (Bld) 64.8 % 47-70 [facility] Potassium [Moles/Vol] 4.5 mmol/L 3.5-5.1 [facility] Protein [Mass/Vol] 6.7 g/dL 6.4-8.2 [facility] Sodium [Moles/Vol] 140 mmol/L 136-145 [facility] Triglyceride [Mass/Vol] 182 mg/dL <199 [facility] Comment on above: The drugs N-Acetylcy steine and Metamizole may falsely depress this assay.Serum Triglycerides Reference Interval Normal <150 mg/dL Borderline high 150 - 199 mg/dL High 200 - 499 mg/dL Very High > or = 500 mg/dL WBC (Bld) [#/Vol] 7.3 10*3/uL 4.4-11.0 [facility] Determination of erythrocyte mean corpuscular volume (MCV)Ordered By: [facility] on 09-26-2023 MCV (RBC) [Entitic vol] 94.2 fL 80-94 [facility] Erythrocyte distribution wid th ratioOrdered By: [facility] on 09-26-2023 Erythrocyte distribution width (RBC) [Ratio] 12.6 % 11.6-14.6 [facility] Erythrocyte distribution wid th standard deviationOrdered By: [facility] on 09-26-2023 Erythrocyte distribution width (RBC) [Entitic vol] 43.4 fL 35.1-43.9 [facility] Hematocrit Auto (Bld) [Volum e fraction]Ordered By: [facility] on 09-26-2023 Hematocrit (Bld) [Volume fraction] 47.0 % 40-54 [facility] Immature granulocytes/100 WB C Auto (Bld)Ordered By: [facility] on 09-26-2023 Immature granulocytes/100 WBC (Bld) 0.500 % 0.0-0.9 [facility] Comment on above: IG% - Immature Granu locytes (promyelocytes, myelocytes and metamyelocytes) > 1% indicates that a LEFT SHIFT is Present. Laboratory - Chemistry and C hemistry - challengeOrdered By: [facility] on 09-26-2023 Albumin/Globulin [Mass ratio] 1.2 {ratio} 0.9-2.4 [facility] ALP [Catalytic activity/Vol] 60 U/L 45-117 [facility] ALT [Catalytic activity/Vol] 40 U/L 16-61 [facility] Cholesterol in HDL [Mass/Vol] 47 mg/dL >40 [facility] Comment on above: The drugs N-Acetylcy steine and Metamizole may falsely depress this assay. Reference Range HDL <40 mg/dL Low HDL Cholesterol HDL >or= 60 mg/dL High HDL Cholesterol Cholesterol in LDL [Mass/Vol] 54 mg/dL 0-130 [facility] CO2 [Moles/Vol] 28.0 mmol/L 21.0-32.0 [facility] Globulin (S) [Mass/Vol] 3.0 g/dL 2.2-4.2 [facility] Urea nitrogen/Creatinine [Mass ratio] 16.7 mg/mg 10-20 [facility] - Hematology and Cell countsOrdered By: Elmer Arnett on 09-26-2023 MCH (RBC) [Entitic mass] 31.3 pg 27.0-32.0 [facility] MCHC (RBC) [Mass/Vol] 33.2 g/dL 32-36 [facility] Nucleated RBC/100 WBC (Bld) [Ratio] 0 % 0-5 [facility] Platelet mean volume (Bld) [Entitic vol] 9.6 fL 6.2-12.0 [facility] Platelets (Bld) [#/Vol] 194 10*3/uL 150-450 [facility] No Panel InformationOrdered By: Elmer Arnett on 09-26-2023 Estimated GFR (MDRD) Amer 80 mL/min >60 [facility] Comment on above: GFR Calc Estimated GFR (MDRD) Non-Af Amer 66 mL/min >60 [facility] Comment on above: Non- GFR Calc Vitamin D 25-Hydroxy 28.5 ng/mL [facility] Comment on above: Vitamin D 25(OH) Sta tus Range Deficiency <20 ng/mL (50nmol/L) Insufficiency 20 - 30 ng/mL (50 - 75 nmol/L) Sufficiency 30 - 100 ng/mL (75 - 250 nmol/L) Toxicity >100 ng/mL (>250 nmol/L) VLDL Cholesterol 36 mg/dL 5-40 [facility] RBC Auto (Bld) [#/Vol]Ordere d By: Elmer Arnett on 09-26-2023 RBC (Bld) [#/Vol] 4.99 10*6/uL 4.6-6.2 [facility] Serum or plasma calcium keesha urement (mass/volume)Ordered By: Elmer Arnett on 09-26-2023 Calcium [Mass/Vol] 11.2 mg/dL 8.5-10.1 [facility] Serum or plasma creatinine m easurement (mass/volume)Ordered By: Elmer Arnett on 09-26-2023 Creatinine [Mass/Vol] 1.14 mg/dL 0.70-1.30 [facility] Comment on above: The validity of the calculated GFR & GFRAA in patients over 70 years has not been determined. Clinical correlation is essential. Serum or plasma thyroid stim ulating hormone (TSH) measurement (units/volume)Ordered By: Elmer Arnett on 09-26-2023 TSH Qn 2.98 uIU/mL 0.358-3.74 [facility] Serum or plasma urea nitroge n measurement (mass/volume)Ordered By: Elmer Arnett on 09-26-2023 Urea nitrogen [Mass/Vol] 19 mg/dL 7-18 [facility] Thin prep Papanicolaou smear with manual screeningOrdered By: Elmer Arnett on 09-26-2023 Thin prep Papanicolaou smear with manual screening 3.7 g/dL 3.2-5.0 [facility] Thin prep Papanicolaou smear with manual screening 22 U/L 15-37 [facility] Thin prep Papanicolaou smear with manual screening 2 5-15 [facility] No Panel InformationOrdered By: Jared Padilla on 09-24-2023 Miscellaneous Test See comment [facility] Comment on above: TEST RESULTS LIMITSL [...] High mg/g creat 34-196 TESTING PERFORMED AT [facility]. ORIGINAL REPORT ON FILE IN LAB CONTAINS [...] Date: 07/02/2023 11:35:30 AM Ordering Provider: ANGELY Greene [facility] ([place]) INR in Blood by Coagulation assayon 02-09-2022 INR Coag (Bld) [Relative time] 1.0 {INR} [facility] Work Phone: Laboratory - Coagulationon 0 02-09-2022 aPTT Coag (Bld) [Time] 30.4 s 24.1-36.2 [facility] Work Phone: PT Coag (PPP) [Time] 13.2 s 11.7-14.9 [facility] Work Phone: No Panel Informationon 02-09 D-Dimer Quantitative (PE/DVT) < 0.27 FEU/ug/m 0.27-0.49 [facility] Work Phone: Comment on above: NORMAL D-Dimer level (<0.50) indicates no DVT or PE. Absolute lymphocyte counton 12-10-2021 Lymphocytes Auto (Unsp spec) [#/Vol] 1.22 10*3/uL 0.83-4.51 [facility] Work Phone: Basophil percentageon 2021 Basophils/100 WBC (Bld) 0.6 % 0-1 [facility] Work Phone: Chloride [Moles/Vol] 103 mmol/L 98-107 [facility] Work Phone: Eosinophils/100 WBC (Bld) 0.8 % 0-5 [facility] Work Phone: Glucose [Mass/Vol] 106 mg/dL 74-106 [facility] Work Phone: Comment on above: Fasting Glucose resu lt from 100 to 125 mg/dL suggests IMPAIRED HOMEOSTASIS per A.D.A. criteria. Neutrophils (Bld) [#/Vol] 9.5 10*3/uL 2.0-7.7 [facility] Work Phone: Neutrophils/100 WBC (Bld) 72.8 % 47-70 [facility] Work Phone: Potassium [Moles/Vol] 4.4 mmol/L 3.5-5.1 [facility] Work Phone: Sodium [Moles/Vol] 133 mmol/L 136-145 [facility] Work Phone: WBC (Bld) [#/Vol] 13.0 10*3/uL 4.4-11.0 [facility] Work Phone: Basophil percentage 0-5 SEEN /hpf 0-5 [facility] Work Phone: Bilirubin Test strip Ql (U)o n 12-10-2021 Bilirubin Ql (U) Negative Negative [facility] Work Phone: [phone] Blood erythrocytes count (nu mber/volume)on 12-10-2021 RBC (Bld) [#/Vol] 5.17 10*6/uL 4.6-6.2 [facility] Work Phone: [phone] Blood hemoglobin measurement (mass/volume)on 12-10-2021 Hemoglobin (Bld) [Mass/Vol] 16.8 g/dL 13.0-16.5 [facility] Work Phone: Blood lymphocytes/100 leukoc yteson 12-10-2021 Lymphocytes/100 WBC (Bld) 9.4 % 19-41 [facility] Work Phone: Blood manual differential co mment interpretation (narrative result)on 12-10-2021 Manual differential comment Andrew (Bld) [Interp] SCANNED [facility] Work Phone: Blood monocytes/100 leukocyt eson 12-10-2021 Monocytes/100 WBC (Bld) 15.9 % 0-10 [facility] Work Phone: Blood platelet adequacy dete ction by light microscopyon 12-10-2021 Platelets LM Ql (Bld) ADEQUATE ADEQ [facility] Work Phone: Blood platelet mean volumeon 12-10-2021 Platelet mean volume (Bld) [Entitic vol] 9.1 fL 6.2-12.0 [facility] Work Phone: [phone] Determination of erythrocyte mean corpuscular volume (MCV)on 12-10-2021 MCV (RBC) [Entitic vol] 94.6 fL 80-94 [facility] Work Phone: [phone] Hematocrit Auto (Bld) [Volum e fraction]on 12-10-2021 Hematocrit (Bld) [Volume fraction] 48.9 % 40-54 [facility] Work Phone: [phone] Ketones Test strip Ql (U)on 12-10-2021 Ketones Ql (U) Negative Negative [facility] Work Phone: [phone] Laboratory - Chemistry and C hemistry - challengeon 12-10-2021 CO2 [Moles/Vol] 25.0 mmol/L 21.0-32.0 [facility] Work Phone: [phone] Urea nitrogen/Creatinine [Mass ratio] 17.8 mg/mg 10-20 [facility] Work Phone: [phone] Laboratory - Hematology and Cell countson 12-10-2021 Erythrocyte distribution width (RBC) [Entitic vol] 43.1 fL 35.1-43.9 [facility] Work Phone: [phone] Erythrocyte distribution width (RBC) [Ratio] 12.3 % 11.6-14.6 [facility] Work Phone: [phone] Immature granulocytes/100 WBC (Bld) 0.500 % 0.0-0.9 [facility] Work Phone: [phone] Comment on above: IG% - Immature Granu locytes (promyelocytes, myelocytes and metamyelocytes) > 1% indicates that a LEFT SHIFT is Present. MCH (RBC) [Entitic mass] 32.5 pg 27.0-32.0 [facility] Work Phone: [phone] Nucleated RBC/100 WBC (Bld) [Ratio] 0 % 0-5 [facility] Work Phone: [phone] MCHC Auto (RBC) [Mass/Vol]on 12-10-2021 MCHC (RBC) [Mass/Vol] 34.4 g/dL 32-36 [facility] Work Phone: Mucus LM Ql (Urine sed)on Mucus Ql (Urine sed) 0 SEEN /hpf [facility] Work Phone: Nitrite Test strip Ql (U)on 12-10-2021 Nitrite Ql (U) Negative Negative [facility] [facility] Work Phone: No Panel Informationon 12-10 Estimated Creatinine Clearance Calc 43.72 ml/min [facility] Work Phone: Estimated GFR (MDRD) Amer 60 mL/min >60 [facility] Work Phone: Comment on above: GFR Calc Estimated GFR (MDRD) Non-Af Amer 50 mL/min >60 [facility] Work Phone: Comment on above: Non- GFR Calc Platelets bldon 12-10-2021 Platelets (Bld) [#/Vol] 208 10*3/uL 150-450 [facility] Work Phone: Protein Test strip Ql (U)on 12-10-2021 Protein Ql (U) 500 mg/dl Negative [facility] Work Phone: RBC morphologyon 12-10-2021 RBC morphology finding Nom (Bld) NORM C+C NORMAL NORM C&C [facility] Work Phone: Review by pathologiston Pathologist review Andrew (Unsp spec) [Interp] Cloleen lazcano [facility] Work Phone: Pathologist review Andrew (Unsp spec) [Interp] Reviewed [facility] Work Phone: Comment on above: Previous reported re sult: Colleen lazcano Edited by: RGOOD on 12/12/21:1322Neutrophilic leukocytosis.Polycythemia Clinical correlation necessary.Jay Olivera M.D. 12/12/21 AMENDED REPORT 12/12/21 1322 PATH REV previously reported as: Colleen lazcano Serum or plasma calcium keesha urement (mass/volume)on 12-10-2021 Calcium [Mass/Vol] 11.0 mg/dL 8.5-10.1 [facility] Work Phone: Serum or plasma creatinine m easurement (mass/volume)on 12-10-2021 Creatinine [Mass/Vol] 1.46 mg/dL 0.70-1.30 [facility] Work Phone: Comment on above: The validity of the calculated GFR & GFRAA in patients over 70 years has not been determined. Clinical correlation is essential. Serum or plasma urea nitroge n measurement (mass/volume)on 12-10-2021 Urea nitrogen [Mass/Vol] 26 mg/dL 7-18 [facility] Work Phone: Squamous epithelial cells de tection in urine sediment by light microscopyon 12-10-2021 Epithelial cells.squamous LM Ql (Urine sed) 0 SEEN /hpf 0-5 [facility] Work Phone: Thin prep Papanicolaou smear with manual screeningon 12-10-2021 Thin prep Papanicolaou smear with manual screening 5 5-15 [facility] Work Phone: Urine blood detectionon RBC Ql (U) 250 /ul Negative [facility] Work Phone: RBC Ql (U) 50-100 SEEN /hpf 0-5 [facility] Work Phone: Urine clarityon 12-10-2021 Clarity (U) Sl. Cloudy Clear [facility] Work Phone: Urine color determinationon 12-10-2021 Color (U) Yellow Yellow [facility] Work Phone: Urine glucose detectionon Glucose Ql (U) Normal mg/dl Normal [facility] Work Phone: Urine leukocyte esterase det ection by dipstickon 12-10-2021 Leukocyte esterase Test strip Ql (U) 25 /ul Negative [facility] Work Phone: Urine pHon 12-10-2021 pH (U) 6.0 [pH] 5.0 - 8.0 [facility] Work Phone: Urine sediment bacteria coun t by microscopy (number/high power field)on 12-10-2021 Bacteria LM.HPF (Urine sed) [#/Area] Not Reportable [facility] Work Phone: Urine specific gravity measu rementon 12-10-2021 Specific gravity (U) [Rel density] 1.025 1.002-1.030 [facility] Work Phone: Urobilinogen Auto test strip Ql (U)on 12-10-2021 Urobilinogen Ql (U) Normal mg/dl Normal [facility] Work Phone: Absolute lymphocyte counton 12-01-2021 Lymphocytes Auto (Unsp spec) [#/Vol] 1.19 10*3/uL 0.83-4.51 [facility] Work Phone: Basophil percentageon 2021 Basophil percentage 0 SEEN /hpf 0-5 [facility] Work Phone: Basophils/100 WBC (Bld) 0.8 % 0-1 [facility] Work Phone: Chloride [Moles/Vol] 109 mmol/L 98-107 [facility] Work Phone: Eosinophils/100 WBC (Bld) 3.8 % 0-5 [facility] Work Phone: Glucose [Mass/Vol] 98 mg/dL 74-106 [facility] Work Phone: Neutrophils (Bld) [#/Vol] 2.6 10*3/uL 2.0-7.7 [facility] Work Phone: Neutrophils/100 WBC (Bld) 53.3 % 47-70 [facility] Work Phone: Potassium [Moles/Vol] 4.6 mmol/L 3.5-5.1 [facility] Work Phone: Sodium [Moles/Vol] 139 mmol/L 136-145 [facility] Work Phone: WBC (Bld) [#/Vol] 4.8 10*3/uL 4.4-11.0 [facility] Work Phone: Bilirubin Test strip Ql (U)o n 12-01-2021 Bilirubin Ql (U) Negative Negative [facility] Work Phone: Blood erythrocytes count (nu mber/volume)on 12-01-2021 RBC (Bld) [#/Vol] 4.74 10*6/uL 4.6-6.2 [facility] Work Phone: Blood hemoglobin measurement (mass/volume)on 12-01-2021 Hemoglobin (Bld) [Mass/Vol] 15.3 g/dL 13.0-16.5 [facility] Work Phone: [phone] Blood lymphocytes/100 leukoc yteson 12-01-2021 Lymphocytes/100 WBC (Bld) 24.8 % 19-41 [facility] Work Phone: [phone] Blood monocytes/100 leukocyt eson 12-01-2021 Monocytes/100 WBC (Bld) 16.7 % 0-10 [facility] Work Phone: Blood platelet mean volumeon 12-01-2021 Platelet mean volume (Bld) [Entitic vol] 9.5 fL 6.2-12.0 [facility] Work Phone: Determination of erythrocyte mean corpuscular volume (MCV)on 12-01-2021 MCV (RBC) [Entitic vol] 95.8 fL 80-94 [facility] Work Phone: Hematocrit Auto (Bld) [Volum e fraction]on 12-01-2021 Hematocrit (Bld) [Volume fraction] 45.4 % 40-54 [facility] Work Phone: Ketones Test strip Ql (U)on 12-01-2021 Ketones Ql (U) Negative Negative [facility] Work Phone: Laboratory - Chemistry and C hemistry - challengeon 12-01-2021 CO2 [Moles/Vol] 25.0 mmol/L 21.0-32.0 [facility] Work Phone: [phone] Urea nitrogen/Creatinine [Mass ratio] 17.6 mg/mg 10-20 [facility] Work Phone: [phone] Laboratory - Hematology and Cell countson 12-01-2021 Erythrocyte distribution width (RBC) [Entitic vol] 45.4 fL 35.1-43.9 [facility] Work Phone: [phone] distribution width (RBC) [Ratio] 12.8 % 11.6-14.6 [facility] Work Phone: [phone] Immature granulocytes/100 WBC (Bld) 0.600 % 0.0-0.9 [facility] Work Phone: [phone] Comment on above: IG% - Immature Granu locytes (promyelocytes, myelocytes and metamyelocytes) > 1% indicates that a LEFT SHIFT is Present. MCH (RBC) [Entitic mass] 32.3 pg 27.0-32.0 [facility] Work Phone: [phone] Nucleated RBC/100 WBC (Bld) [Ratio] 0 % 0-5 [facility] Work Phone: [phone] MCHC Auto (RBC) [Mass/Vol]on 12-01-2021 MCHC (RBC) [Mass/Vol] 33.7 g/dL 32-36 [facility] Work Phone: [phone] Mucus LM Ql (Urine sed)on Mucus Ql (Urine sed) 0 SEEN /hpf [facility] Work Phone: [phone] Nitrite Test strip Ql (U)on 12-01-2021 Nitrite Ql (U) Negative Negative [facility] Work Phone: [phone] Panel Informationon 12-01 Estimated Creatinine Clearance Calc 53.64 ml/min [facility] Work Phone: [phone] Estimated GFR (MDRD) Amer 76 mL/min >60 [facility] Work Phone: [phone] Comment on above: GFR Calc Estimated GFR (MDRD) Non-Af Amer 63 mL/min >60 [facility] Work Phone: Comment on above: Non- GFR Calc Platelets bldon 12-01-2021 Platelets (Bld) [#/Vol] 181 10*3/uL 150-450 [facility] Work Phone: Protein Test strip Ql (U)on 12-01-2021 Protein Ql (U) 15 mg/dl Negative [facility] Work Phone: [phone] Serum or plasma calcium keesha urement (mass/volume)on 12-01-2021 Calcium [Mass/Vol] 10.2 mg/dL 8.5-10.1 [facility] Work Phone: Serum or plasma creatinine m easurement (mass/volume)on 12-01-2021 Creatinine [Mass/Vol] 1.19 mg/dL 0.70-1.30 [facility] Work Phone: Comment on above: The validity of the calculated GFR & GFRAA in patients over 70 years has not been determined. Clinical correlation is essential. Serum or plasma urea nitroge n measurement (mass/volume)on 12-01-2021 Urea nitrogen [Mass/Vol] 21 mg/dL 7-18 [facility] Work Phone: Squamous epithelial cells de tection in urine sediment by light microscopyon 12-01-2021 Epithelial cells.squamous LM Ql (Urine sed) 0 SEEN /hpf 0-5 [facility] Work Phone: Thin prep Papanicolaou smear with manual screeningon 12-01-2021 Thin prep Papanicolaou smear with manual screening 5 5-15 [facility] Work Phone: Urine blood detectionon 11-05 RBC Ql (U) 10 /ul Negative [facility] Work Phone: [phone] RBC Ql (U) 0-5 SEEN /hpf 0-5 [facility] Work Phone: [phone] Urine clarityon 12-01-2021 Clarity (U) Clear Clear [facility] Work Phone: [phone] Urine color determinationon 12-01-2021 Color (U) Yellow Yellow [facility] Work Phone: Urine glucose detectionon Glucose Ql (U) Normal mg/dl Normal [facility] Work Phone: Urine leukocyte esterase det ection by dipstickon 12-01-2021 Leukocyte esterase Test strip Ql (U) Negative Negative [facility] Work Phone: Urine pHon 12-01-2021 pH (U) 6.0 [pH] 5.0 - 8.0 [facility] Work Phone: Urine sediment bacteria coun t by microscopy (number/high power field)on 12-01-2021 Bacteria LM.HPF (Urine sed) [#/Area] 1 /[HPF] None Seen [facility] Work Phone: Urine specific gravity measu rementon 12-01-2021 Specific gravity (U) [Rel density] 1.020 1.002-1.030 [facility] Work Phone: Urobilinogen Auto test strip Ql (U)on 12-01-2021 Urobilinogen Ql (U) Normal mg/dl Normal [facility] Work Phone: CT FACIAL WITHOUT CONTRASTon 02-02-2018 [...] posttraumatic. Correlate with direct visual inspection. Normal [facility] ([place] HEAD WITHOUT CONTRASTon 0 01-29-2018 CT [...] or softtissues.IMPRESSION :No acute intracranial abnormality. Normal [facility] [place] NOTEon 01-29-2018 [facility] NOTES Normal [facility] [place] [facility] [place] Normal [facility] [place] PROVIDERon 01-29-2018 [facility] NOTES Normal [facility] [place] [facility] 2017 [facility] CAC Coding OP/ED Report Normal [facility] [place] OSUHIMCACENCSUM[facility] 01-29-2018 [facility] CAC Encounter Summary Report Normal [facility] [place] Vital Signs Date Time Vital Sign Value Performing Clinician Karon canales 04-01-2025 07:52-0400 Body temperature 99.4 [degF] Dr. Elmer Arnett MD Work Phone: [facility] 04-01-2025 07:52-0400 Diastolic blood pressure 63 mm[Hg] Dr. Elmer Arnett MD Work Phone: [facility] 04-01-2025 07:52-0400 Heart rate 80 /min Dr. Elmer Arnett MD Work Phone: [facility] 04-01-2025 07:52-0400 Respiratory rate 15 /min Dr. Elmer Arnett MD Work Phone: [facility] 04-01-2025 07:52-0400 SaO2% (BldA) [Mass fraction] 100 % Dr. Elmer Arnett MD Work Phone: [facility] 04-01-2025 07:52-0400 Systolic blood pressure 98 mm[Hg] Dr. Elmer Arnett MD Work Phone: [facility] 04-01-2025 04:21-0400 Body height 175.[address] Elmer Arnett MD Work Phone: [facility] 04-01-2025 04:21-0400 Body mass index (BMI) [Ratio] 29 kg/m2 Dr. Elmer Arnett MD Work Phone: [facility] 04-01-2025 04:21-0400 Body weight 89.[address] Elmer Arnett MD Work Phone: [facility] 03-05-2025 08:21-0400 Diastolic blood pressure 79 mm[Hg] Dr. Elmer Arnett MD Work Phone: [facility] 03-05-2025 08:21-0400 Heart rate 70 /min Dr. Elmer Arnett MD Work Phone: [facility] 03-05-2025 08:21-0400 SaO2% (BldA) [Mass fraction] 96 % Dr. Elmer Arnett MD Work Phone: [facility] 03-05-2025 08:21-0400 Systolic blood pressure 131 mm[Hg] Dr. Elmer Arnett MD Work Phone: 2(244)281-548346 [place] [address] 03-05-2025 08:06-0400 Body height 175.[address] Elmer Arnett MD Work Phone: 4(542)956-880146 [place] [address] 03-05-2025 08:06-0400 Body mass index (BMI) [Ratio] 29.2 kg/m2 Dr. Elmer Arnett MD Work Phone: [phone])000-514946 [place] [address] 03-05-2025 08:06-0400 Body weight 89.[address] Elmer Arnett MD Work Phone: 4(111)850-737546 [place] [address] 03-05-2025 08:06-0400 Respiratory rate 16 /min Dr. Elmer Arnett MD Work Phone: 4(502)757-405505 [place] [address] 11-11-2024 07:54-0400 Body height 175.[address] Elmer Arnett MD Work Phone: 8(061)570-864705 [place] [address] 11-11-2024 07:54-0400 Body mass index (BMI) [Ratio] 29.4 kg/m2 Dr. Elmer Arnett MD Work Phone: 7(338)654-157805 [place] [address] 11-11-2024 07:54-0400 Body weight 90.[address] Elmer Arnett MD Work Phone: 6(760)578-713405 [place] [address] 11-11-2024 07:54-0400 Diastolic blood pressure 76 mm[Hg] Dr. Elmer Arnett MD Work Phone: 4(437)249-489228 [address] 11-11-2024 07:54-0400 Heart rate 70 /min Dr. Elmer Arnett MD Work Phone: 3(075)865-588405 [place] [address] 11-11-2024 07:54-0400 SaO2% (BldA) [Mass fraction] 95 % Dr. Elmer Arnett MD Work Phone: 9(520)213-019346 [place] [address] 11-11-2024 07:54-0400 Systolic blood pressure 163 mm[Hg] Dr. Elmer Arnett MD Work Phone: 8(619)288-022105 [place] [address] 08-22-2024 15:27-0500 Body temperature 98.2 [degF] Dr. Elmer Arnett MD Work Phone: 6(763)325-670005 [place] [address] 08-22-2024 15:27-0500 Diastolic blood pressure 88 mm[Hg] Dr. Elmer Arnett MD Work Phone: 6(795)522-848505 [place] [address] 08-22-2024 15:27-0500 Heart rate 107 /min Dr. Elmer Arnett MD Work Phone: 2(280)412-950105 [place] [address] 08-22-2024 15:27-0500 Respiratory rate 20 /min Dr. Elmer Arnett MD Work Phone: 9(283)686-586205 [place] [address] 08-22-2024 15:27-0500 SaO2% (BldA) [Mass fraction] 98 % Dr. Elmer Arnett MD Work Phone: 7(352)263-106405 [place] [address] 08-22-2024 15:27-0500 Systolic blood pressure 137 mm[Hg] Dr. Elmer Arnett MD Work Phone: 9(082)416-470205 [place] [address] 08-22-2024 06:35-0500 Body height 175.[address] Elmer Arnett MD Work Phone: 5(842)096-526105 [place] [address] 08-22-2024 06:35-0500 Body mass index (BMI) [Ratio] 29 kg/m2 Dr. Elmer Arnett MD Work Phone: 8(447)990-210105 [place] [address] 08-22-2024 06:35-0500 Body weight 89.[address] Elmer Arnett MD Work Phone: 2(534)981-466505 [place] [address] 08-01-2024 08:11-0500 Body mass index (BMI) [Ratio] 28.5 kg/m2 Dr. Elmer Arnett MD Work Phone: 2(436)432-851905 [place] [address] 08-01-2024 08:11-0500 Body weight 87.[address] Elmer Arnett MD Work Phone: 6(832)218-691105 [place] [address] 08-01-2024 08:11-0500 Diastolic blood pressure 69 mm[Hg] Dr. Elmer Arnett MD Work Phone: 9(844)824-591305 [place] [address] 08-01-2024 08:11-0500 Respiratory rate 16 /min Dr. Elmer Arnett MD Work Phone: [facility] 08-01-2024 08:11-0500 Systolic blood pressure 162 mm[Hg] Dr. Elmer Arnett MD Work Phone: [facility] 11-14-2023 14:35-0400 Diastolic blood pressure 69 mm[Hg] [facility] 11-14-2023 14:35-0400 Heart rate 77 /min [facility] 11-14-2023 14:35-0400 Systolic blood pressure 145 mm[Hg] [facility] 11-14-2023 13:56-0400 Body height 175.26 cm [facility] 11-14-2023 13:56-0400 Body mass index (BMI) [Ratio] 28.8 kg/m2 [facility] 11-14-2023 13:56-0400 Body temperature 96 [degF] [facility] 11-14-2023 13:56-0400 Body weight 88.45 kg [facility] 11-14-2023 13:56-0400 Respiratory rate 16 /min [facility] 11-14-2023 13:56-0400 SaO2% (BldA) [Mass fraction] 98 % [facility] 09-13-2023 08:20-0500 Body height 175.26 cm [facility] 09-13-2023 08:20-0500 Body mass index (BMI) [Ratio] 29.1 kg/m2 [facility] 09-13-2023 08:20-0500 Body temperature 98.6 [degF] [facility] 09-13-2023 08:20-0500 Body weight 89.58 kg [facility] 09-13-2023 08:20-0500 Diastolic blood pressure 88 mm[Hg] [facility] 09-13-2023 08:20-0500 Heart rate 70 /min [facility] 09-13-2023 08:20-0500 Respiratory rate 16 /min [facility] 09-13-2023 08:20-0500 SaO2% (BldA) [Mass fraction] 97 % [facility] 09-13-2023 08:20-0500 Systolic blood pressure 156 mm[Hg] [facility] 02-09-2022 11:03-0400 Body height 175.26 cm [facility] Work Phone: 02-09-2022 10:55-0400 Body mass index (BMI) [Ratio] 29 kg/m2 [facility] Work Phone: 02-09-2022 10:55-0400 Body temperature 98.8 [degF] [facility] Work Phone: 02-09-2022 10:55-0400 Body weight 89.1 kg [facility] Work Phone: 02-09-2022 10:55-0400 Diastolic blood pressure 80 mm[Hg] [facility] Work Phone: 02-09-2022 10:55-0400 Heart rate 71 /min [facility] Work Phone: 02-09-2022 10:55-0400 Respiratory rate 15 /min [facility] Work Phone: 02-09-2022 10:55-0400 SaO2% (BldA) [Mass fraction] 96 % [facility] Work Phone: 02-09-2022 10:55-0400 Systolic blood pressure 151 mm[Hg] [facility] Work Phone: 12-10-2021 17:11-0400 Diastolic blood pressure 61 mm[Hg] [facility] Work Phone: 12-10-2021 17:11-0400 Heart rate 68 /min [facility] Work Phone: 12-10-2021 17:11-0400 Systolic blood pressure 128 mm[Hg] [facility] Work Phone: 12-10-2021 13:35-0400 Body height 175.26 cm [facility] Work Phone: 12-10-2021 13:35-0400 Body mass index (BMI) [Ratio] 29.5 kg/m2 [facility] Work Phone: 12-10-2021 13:35-0400 Body temperature 97.4 [degF] [facility] Work Phone: 12-10-2021 13:35-0400 Body weight 90.71 kg [facility] Work Phone: 12-10-2021 13:35-0400 Respiratory rate 16 /min [facility] Work Phone: 12-10-2021 13:35-0400 SaO2% (BldA) [Mass fraction] 99 % [facility] Work Phone: 12-06-2021 16:56-0400 Body temperature 98.1 [degF] [facility] Work Phone: 12-06-2021 16:56-0400 Diastolic blood pressure 63 mm[Hg] [facility] Work Phone: 12-06-2021 16:56-0400 Heart rate 72 /min [facility] Work Phone: 12-06-2021 16:56-0400 Respiratory rate 16 /min [facility] Work Phone: 12-06-2021 16:56-0400 SaO2% (BldA) [Mass fraction] 96 % [facility] Work Phone: 12-06-2021 16:56-0400 Systolic blood pressure 135 mm[Hg] [facility] Work Phone: 12-06-2021 14:57-0400 Body mass index (BMI) [Ratio] 29.7 kg/m2 [facility] Work Phone: 12-06-2021 14:57-0400 Body weight 91.17 kg [facility] Work Phone: 12-01-2021 02:25-0400 Diastolic blood pressure 81 mm[Hg] [facility] Work Phone: 12-01-2021 02:25-0400 Heart rate 61 /min [facility] Work Phone: 12-01-2021 02:25-0400 Respiratory rate 18 /min [facility] Work Phone: 12-01-2021 02:25-0400 SaO2% (BldA) [Mass fraction] 100 % [facility] Work Phone: 12-01-2021 02:25-0400 Systolic blood pressure 127 mm[Hg] [facility] Work Phone: 12-01-2021 00:49-0400 Body height 175.26 cm [facility] Work Phone: 12-01-2021 00:49-0400 Body mass index (BMI) [Ratio] 30.1 kg/m2 [facility] Work Phone: 12-01-2021 00:49-0400 Body temperature 97.8 [degF] [facility] Work Phone: 12-01-2021 00:49-0400 Body weight 92.5 kg [facility] Work Phone: Encounters Encounter Date Encounter Type Care Provider Facility Start: 04-28-2025 ambulatory Elmer Arnett Facility:[facility] Start: 04-01-2025 Non-patient / Non-visit Dr. Michelle Romano MD -[facility] Start: 04-01-2025 Evaluation and management of inpatient Dr. Finn Romano MD -[facility] 3 Work Phone: Start: 04-01-[address] Elmer Arnett MD Work Phone: -[facility] Start: 03-31-2025 ambulatory Huseyin West ART SPECIALIST Facility :[facility] Start: 03-31-2025 Non-patient / Non-visit Dr. Rick LAWRENCE -[facility] Start: 03-31-2025 Patient encounter procedure Huseyin Yogesh West ART SPECIALIST-C -Cardiovascular Services Work Phone: Start: 03-31-2025 ambulatory Huseyin West ART SPECIALIST Facility :[facility] Start: 03-05-2025 End: 03-05-2025 Patient encounter procedure Huseyin West ART SPECIALIST-C -[facility] Work Phone: Start: 03-05-2025 End: 03-05-[address] Elmer Arnett MD Work Phone: -[facility] Start: 02-18-2025 End: 02-18-2025 Non-patient / Non-visit Dr. Kamaljit Hendricks MD -[facility] Work Phone: Start: 02-18-2025 End: 02-18-[address] Elmer Arnett MD Work Phone: -Pulmonary Services/Neurology Start: 02-18-2025 End: 02-18-[address] Elmer Arnett MD -Pulmonary Services/Neurology Work Phone: Start: 02-18-2025 End: 02-18-2025 ambulatory Elmer Arnett Facility:[facility] Start: 02-16-2025 End: 02-16-[address] Elmer Arnett MD Work Phone: -Laboratory Phy Office 3rd Flr Start: 02-16-2025 End: 02-16-[address] Elmer Arnett MD -Laboratory Phy Office 3rd Flr Start: 02-16-2025 End: 02-16-2025 ambulatory Elmer Arnett Facility:[facility] Start: 11-11-2024 End: 11-11-[address] Jared Padilla MD -[facility] Work Phone: Start: 11-11-2024 End: 11-11-2024 ambulatory Elmer Arnett Facility:[facility] Start: 11-10-2024 End: 11-10-[address] Elmer Arnett MD Work Phone: [facility] Work Phone: Start: 11-10-2024 End: 11-10-[address] Elmer Arnett MD -Ultrasound, [facility] Work Phone: Start: 11-10-2024 End: 11-10-2024 ambulatory [facility] Rangel Arnett Facility:[facility] Start: 10-03-2024 End: 10-03-[address] Elmer Arnett MD Work Phone: [facility] Work Phone: Start: 10-03-2024 End: 10-03-[address] Elmer Arnett MD -Ultrasound, [facility] Work Phone: Start: 10-03-2024 End: 10-03-2024 ambulatory Elmer Rangel Arnett Facility:[facility] Start: 09-29-2024 End: 09-29-[address] Elmer Arnett MD Work Phone: [facility] Work Phone: Start: 09-29-2024 End: 09-29-2024 Patient encounter procedure Jared Padilla MD -Laboratory Work Phone: Start: 09-29-2024 End: 09-29-2024 ambulatory [facility] Melquiades Facility:[facility] Start: 09-19-2024 Encounter for other [facility] Start: 09-15-2024 End: 09-15-[address] Kamaljit Koehler MD -Laboratory Work Phone: Start: 09-15-2024 End: 09-15-2024 ambulatory Kamaljit Koehler Facility:[facility] Start: 09-10-2024 End: 09-10-2024 Patient encounter procedure Migdalia Dunlap PA-C -Laboratory Work Phone: Start: 09-10-2024 End: 09-10-2024 ambulatory [place] Facility:[facility] Start: 09-03-2024 End: 09-03-[address] Kamaljit Koehler MD -Laboratory Work Phone: Start: 09-03-2024 End: 09-03-[address] Kamaljit Koehler MD -[facility] Work Phone: Start: 09-03-2024 End: 09-03-2024 ambulatory Kamaljit Koehler Facility:[facility] Start: 09-03-2024 End: 09-03-2024 ambulatory Kamaljit Koehler Facility:[facility] Start: 08-22-2024 Non-patient / Non-visit Dr. Kamaljit Koehler MD -[facility] Start: 08-22-2024 End: 08-22-2024 Admission to same day surgery center Dr. Kamaljit Koehler MD -[facility] Start: 08-22-2024 End: 08-22-2024 ambulatory Kamaljit Koehler Facility:[facility] Start: 08-15-2024 End: 08-15-2024 ambulatory Kamaljit Hendricks Facility:[facility] Start: 08-15-2024 End: 08-15-2024 Non-patient / Non-visit Dr. Kamaljit Hendricks MD -[facility] Work Phone: Start: 08-01-2024 End: 08-01-[address] Kamaljit Koehler MD -[facility] Work Phone: Start: 08-01-2024 End: 08-01-2024 ambulatory Kamaljit Koehler Facility:[facility] Start: 07-17-2024 End: 07-17-[address] Kamaljit Koehler MD -Nuclear Medicine, [facility] Work Phone: Start: 07-17-2024 End: 07-17-2024 ambulatory Kamaljit Koehler Facility:[facility] Start: 06-13-2024 End: 06-13-[address] Elmer Arnett MD -Laboratory, Phy Office 3rd Flr Start: 06-13-2024 End: 06-13-2024 ambulatory Elmer Arnett Facility:[facility] Start: 06-10-2024 End: 06-10-2024 ambulatory [place] [facility] Facility:[facility] Start: 05-29-2024 End: 05-29-2024 ambulatory Elmer Rangel Melquiades Facility:[facility] Start: 05-13-2024 End: 05-13-2024 ambulatory Elmer Chi Melquiades [facility] Start: 11-14-2023 End: 11-14-2023 ambulatory [facility] Work Phone: Start: 11-14-2023 End: 11-14-2023 Patient encounter procedure [facility]Medical Out Work Phone: Start: 10-25-2023 End: 10-25-2023 ambulatory [facility] Work Phone: Start: 10-25-2023 End: 10-25-2023 Patient encounter procedure [facility]-Outpatient Bone Densitometry Work Phone: Start: 09-26-2023 End: 09-26-2023 Patient encounter procedure [facility]-Laboratory, Phy Office 3rd Flr Start: 09-24-2023 End: 09-24-2023 ambulatory [facility] Work Phone: Start: 09-24-2023 End: 09-24-2023 Patient encounter procedure [facility]Laboratory, Specimen Work Phone: Start: 09-13-2023 End: 09-13-2023 Patient encounter procedure [facility] Work Phone: Start: 07-02-2023 End: 07-03-2023 ambulatory ANGELY HALL MD Facility:[facility] Start: 07-02-2023 End: 07-02-2023 Patient encounter procedure ANGELY HALL MD [facility] Start: 03-03-2022 Non-patient / Non-visit [facility] Start: 03-03-2022 End: 03-03-2022 Patient encounter procedure [facility]Cardiovascular Services Start: 02-09-2022 Registered [facility] Start: 02-09-2022 End: 02-09-2022 Patient encounter procedure [facility] Start: 12-10-2021 End: 12-10-2021 Emergency department patient visit [facility]gency [facility] Start: 12-08-2021 End: 12-08-2021 Patient encounter procedure [facility]Pulmonary Services/Neurology Start: 12-08-2021 Non-patient / Non-visit [facility] Start: 12-06-2021 End: 12-06-2021 Admission to same day surgery center [facility] Day [facility] Start: 12-01-2021 End: 12-01-2021 Emergency department patient visit [facility] Start: 01-29-2018 [facility] Date Procedure Procedure Detail Performing Clinician Start: 04-01-2025 Urnls dip stick/tabl et reagent auto microscopy Dr. Elmer Arnett MD Work Phone: Start: 04-01-2025 Plain chest X-ray Dr. Jenifer Arnett MD Work Phone: Start: 04-01-2025 Computed tomography of abdomen and pelvis with intravenous contrast Dr. Elmer Arnett MD Work Phone: Start: 04-01-[address] Elmer Arnett MD Work Phone: Start: 03-31-2025 Cardiovascular stres s test using pharmacologic stress agent Dr. Elmer Arnett MD Work Phone: Start: 02-16-2025 X-ray of chest, PA a nd lateral views Dr. Elmer Arnett MD Work Phone: Start: 02-16-2025 D-dimer assay, quantitative Dr. Elmer Arnett MD Work Phone: Comment on above: NORMAL D-Dimer level (<0.50) indicates no DVT or PE. Start: 02-16-2025 Urnls dip stick/tabl et reagent auto microscopy Dr. Elmer Arnett MD Work Phone: Start: 02-16-[address] Elmer klein MD Work Phone: Start: 11-10-[address] Elmer Arnett MD Work Phone: Start: 10-03-[address] Elmer Arnett MD Work Phone: Start: 07-17-2024 Single photon emissi on computed tomography of parathyroid Dr. Elmer Arnett MD Work Phone: Start: 06-13-2024 SARS-CoV-2, Influenz a & RSV (PCR) Dr. Elmer Arnett MD Work Phone: Start: 10-25-2023 Dual energy X-ray absorptiometry [facility] Start: 12-10-2021 CT of abdomen and pe lvis without contrast Start: 12-06-2021 Fluoroscopic guidance Start: 12-01-2021 CT of abdomen and pe lvis without contrast Start: 04-22-2003 History of placement of stent for coronary artery disease History of coronary artery stent placement [facility] Comment on above: 3 stents to RCA 04/22 Plan of Treatment Date Care Activity Detail Author Start: 04-01-2025 Bacteria identified in Blood by Culture Blood Culture [facility] Start: 04-01-2025 Bacteria identified in Urine by Culture Urine Culture [facility] Start: 04-01-2025 Laparoscopic appendectomy Laparoscopic, Appendectomy (Not Applicable) [facility] Start: 04-01-2025 Hospital admission, emergency, from emergency room, medical nature [facility] Start: 04-01-2025 Ambulation without limitation [facility] Start: 04-01-2025 Following clinical pathway protocol [facility] Start: 04-01-2025 Measuring intake and output [facility] Start: 04-01-2025 Taking patient vital signs [facility] Start: 04-01-2025 [facility] Start: 04-01-2025 Admission procedure [facility] Start: 04-01-2025 [facility] Start: 04-01-2025 End: 04-01-2025 [facility] Start: 11-10-2024 Liver elastography w/o imag w/i&r LIVER ELASTOGRAPHY [facility] Start: 08-22-2024 Anes esoph thyrd larynx trach & lymph neck 1yr ANESTH NECK ORGAN 1YR/> [facility] Start: 08-22-2024 Parathyroidectomy/exploration parathyroids EXPLORE PARATHYROID GLANDS [facility] Start: 08-22-2024 Patient discharge [facility] Start: 12-06-2021 Patient discharge [facility] Work Phone: Start: 12-06-2021 End: 12-06-2021 [facility] Work Phone: Start: 12-06-2021 Ambulation without limitation [facility] Work Phone: Start: 12-06-2021 Medication education [facility] Work Phone: Start: 12-06-2021 Taking patient vital signs [facility] Work Phone: Start: 12-06-2021 Anes transurethral w/urethrocystoscopy nos ANESTH BLADDER SURGERY [facility] Work Phone: Start: 12-06-2021 Cysto w/insert ureteral stent CYSTOSCOPY AND TREATMENT [facility] Work Phone: Anion gap in Serum or Plasma [facility] BUN/Creatinine ratio [facility] Calcium [Mass/volume ] in Serum or Plasma [facility] Carbon dioxide, tota l [Moles/volume] in Central venous blood [facility] Creatinine [Mass/vol ume] in Serum or Plasma [facility] DXA Bone [Mass/Area] Bone density [facility] Electrocardiographic procedure [facility] Erythrocyte mean cor puscular volume determination [facility] Glucose [Mass/volume ] in Serum or Plasma [facility] Hematocrit [Volume F raction] of Blood [facility] Hemoglobin [Mass/vol ume] in Blood [facility] Leukocytes [#/volume] in Blood [facility] Mean corpuscular hem oglobin concentration determination [facility] Mean corpuscular hem oglobin determination [facility] Measurement of renal function [facility] Neutrophil count [facility] Neutrophil percent differential count [facility] NM Heart Views W str ess and W radionuclide IV [facility] Patient Education ED Kidney Ston e w/ Colic [facility] Work Phone: Patient referral [facility] Work Phone: Platelets [#/volume] in Blood [facility] Potassium measurement [facility] Red blood cell count [facility] Red cell distributio n width determination [facility] Serum chloride measurement [facility] Sodium measurement [facility] Troponin T.cardiac [Mass/volume] in Serum or Plasma by High sensitivity method [facility] Urea nitrogen [Mass/ volume] in Serum or Plasma [facility] Urine culture [facility] Immunizations Immunization Date Immunization Notes Care Provider Fa jasminaty 05-04-2014 tetanus and diphther ia toxoids, adsorbed, preservative free, for adult use (2 Lf of tetanus toxoid and 2 Lf of diphtheria toxoid) [facility] Payers Date Payer Category Payer Self-pay [id number] 2023 Medicare [id number] 2023 Unknown [id number] 2011 Medicare [id number] 1945 Unknown [id number] 2.16.8 40.1.116860.3.579.2.627 Unknown [id number] 2.16.8 40.1.581146.3.579.2.462 Unknown [id number] 2.16.8 40.1.210730.3.579.2.462 Unknown [id number] 2.16.8 40.1.462184.3.579.2.462 Unknown [id number] 2.16.8 40.1.426541.3.579.2.462 Unknown [id number] 2.16.8 40.1.931748.3.579.2.462 Unknown [id number] 2.16.8 40.1.621412.3.579.2.462 Unknown [id number] 2.16.8 40.1.697858.3.579.2.462 Unknown [id number] 2.16.8 40.1.702484.3.579.2.462 Unknown [id number] 2.16.8 40.1.078077.3.579.2.462 Unknown [id number] 2.16.8 40.1.721774.3.579.2.462 Unknown [id number] 2.16.8 40.1.775152.3.579.2.462 Unknown [id number] 2.16.8 40.1.012976.3.579.2.462 Unknown [id number] 2.16.8 40.1.961369.3.579.2.462 Unknown [id number] 2.16.8 40.1.371795.3.579.2.462 Unknown [id number] 2.16.8 40.1.661321.3.579.2.462 Unknown [id number] 2.16.8 40.1.871524.3.579.2.462 Unknown [id number] 2.16.8 40.1.625539.3.579.2.462 Unknown [id number] 2.16.8 40.1.128529.3.579.2.462 Unknown [id number] 2.16.8 40.1.118238.3.579.2.462 Unknown [id number] 2.16.8 40.1.567935.3.579.2.462 Unknown [id number] 2.16.8 40.1.500979.3.579.2.462 Unknown [id number] 2.16.8 40.1.282544.3.579.2.462 Unknown [id number] 2.16.8 40.1.482514.3.579.2.462 Unknown [id number] 2.16.8 40.1.377926.3.579.2.462 Social History Date Type Detail Facility Start: 12-01-2021 End: 09-13-2023 Tobacco smoking status NHIS Unknown if ever smoked [facility] Start: 04-18-2015 None [facility] Start: 04-18-2015 Spouse/ Signif icant Other [facility] Start: 05-26-2020 Non-smoker [facility] Start: 1945 Sex Assigned At Male A [facility] Tobacco smoking status No Smoking Status Entered [facility] Start: 08-14-2024 End: 04-01-2025 Tobacco smoking status NHIS Never smoked tobacco (finding) [facility] Start: 10-11-2024 End: 11-13-2024 Sex Male (finding) [facility] Medical Equipment Procedure Code Equipment Code Equipment Original Text Equipment Identifier Dates Parathyroidectomy DRESSING,SURGI CE L 4x8 FDA Start: 08-22-2024 Parathyroidectomy Ligation clip, metallic ()[id number] [id number] FDA Start: 08-22-2024 Parathyroidectomy Ligation clip, metallic ()[id number] [id number] FDA Start: 08-22-2024 Parathyroidectomy DRESSING,SURGI CE [...] Assessment Result Facility 08-22-2024 Cognitive function Voice/Name [facility] Work Phone: 11-14-2023 Cognitive function Awake;Alert;A ppropriate;Fol lows Commands [facility] Work Phone: 12-06-2021 Cognitive function Voice/Name [facility] Work Phone: Clinical Notes 07-02-2023 to 04-01-2025 Note Date & Type Note Facility 04-01-2025 History and physi carlos eduardo note [facility] 04-01-2025 Discharge summary [facility] 04-01-2025 Radiology Diagnostic study note [facility] Imaging Services [address] [place] [address] Chest 1 View (Portable) MR#: [id number] Acct: [id number] Name: YAHAIRA PÉREZ Rep #: [id number] : 1945 M 79 From: Krysten Montero MD PCP: Dr. Elmer Arnett MD Status: REG E R Study:Chest 1 View (Portable) Date of Exam: 04/01/25 Exam# [id number] Ordering Dr: Nasir Crook MD PROCEDURE: CHEST 1 VIEW (PORTABLE) 04/01/2025 REASON FOR EXAM: FEVER TECHNIQUE: Frontal view of the chest. COMPARISON: February 16, 2025 FINDINGS: Heart size is upper normal. Central vascularity appears normal. There is no focal infiltrate or consolidation. There is no pneumothorax or effusion. There is no acute bony abnormality. Aortic calcifications are visible. RAD/Chest 1 View (Portable) IMPRESSION: No acute process is identified in the chest. Reading Location: [facility] CC: Dr. Joseph Crook MD; Dr. Elmer Arnett MD ~ Java Developer Consultant: Signed [facility] 04-01-2025 Radiology Diagnostic study note [facility] Imaging Services [address] [place], [place] [address] Abdomen/Pelvis W IV Cont ONLY MR#: [id number] Acct: [id number] Name: YAHAIRA PÉREZ Rep #: [id number] : 1945 M 79 From: Krysten Montero MD PCP: Dr. Elmer Arnett MD Status: REG E R Study:Abdomen/Pelvis W IV Cont ONLY Date of E xam: 04/01/25 Exam# [id number] Ordering Dr: Nasir Crook MD PROCEDURE: ABDOMEN/PELVIS W IV CONT ONLY 04/01/2025 REASON FOR EXAM: DIFFUSE PAIN, FEVER TECHNIQUE: ABDOMEN/PELVIS W IV CONT ONLY Coronal and Sagittal reconstruction series were provided. CONTRAST: 97 cc Isovue 370 One or more dose reduction techniques were used (e.g., Automated exposure control, adjustment of the mA and/or kV according to patient size, use of iterative reconstruction technique. RADIATION DOSE SUMMARY: DLP: 1098 mGycm COMPARISON: December 11, 2019 FINDINGS: Lung bases: Clear Liver: There is a 1.5 x 1.0 cm cyst in the left hepatic lobe, unchanged. Gallbladder: There is a 0.3 cm calcified stone in the dependent portion of the gallbladder. There is no gallbladder wall thickening or pericholecystic inflammation. Spleen: Unremarkable Pancreas: Unremarkable Adrenals: The right adrenal is normal. There is a 0.8 cm nodule in the left adrenal, Hounsfield units = 71, unchanged. Kidneys: There is a 1 cm cyst in the midpole of the right kidney. There is a 1.4 cm cyst at the upper pole of the left kidney. There is a 0.25 cm nonobstructing stone in the midpole of the right kidney. There is a 0.4 cm nonobstructing stone in the midpole of the left kidney. Bladder: Unremarkable Reproductive Organs: The prostate is heterogeneously enlarged, with calcifications noted. Bowel: Gas and stool is noted in the colon. There is diverticulosis of the sigmoid colon with no visible acute diverticulitis. The small bowel loops are not distended. Appendix: The appendix is dilated to 0.9 cm in diameter, with periappendiceal inflammation. Lymph nodes: There is no pathologic adenopathy by size criteria. Vasculature: Atherosclerotic calcifications are noted. Peritoneum / Retroperitoneum: There is no free air or free fluid. Bones: There is no acute bony abnormality. CT/Abdomen/Pelvis W IV Cont ONLY IMPRESSION: There is a 0.8 cm nodule in the left adrenal, Hounsfield units = 71, unchanged. Cholelithiasis. There is a 0.25 cm nonobstructing stone in the midpole of the right kidney. There is a 0.4 cm nonobstructing stone in the midpole of the left kidney. The prostate is heterogeneously enlarged, with calcifications noted. The appendix is dilated to 0.9 cm in diameter, with periappendiceal inflammation, acute appendicitis. Critical results were discussed with Dr. Crook by Dr. Montero at the time ofdictation. Reading Location: [facility] CC: Dr. Joseph Crook MD; Dr. Elmer Arnett MD ~ Java Developer Consultant: Signed [facility] 03-05-2025 Evaluation note Diagnosis Onset Date Resolution Dyspnea on exertion acute March 05, 2025 7:57am History of coronary artery stent placement April 22, 2003 chronic March 05, 2025 7:57am Hyperlipidemia chronic March 05, 2025 7:57am Hypertension chronic March 05, 025 7:57am Acute appendicitis acute April 01, 2025 7:18am Sepsis acute April 01, 2025 7:18am [facility] Work Phone: 1(286) 185-747807-15-2025 Radiology Diagnostic study note [facility] Imaging Services [address] [place] [address] Chest PA and Lateral MR#: [id number] Acct: [id number] Name: YAHAIRA PÉREZ Rep #: [id number] : 1945 M 79 From: Pau Metcalf MD PCP: Dr. Elmer Arnett MD Status: [facility] Study:Chest PA and Lateral Date of Exam: 02/16/25 Exam# [id number] Ordering Dr: Elmer Arnett MD PROCEDURE: CHEST PA AND LATERAL 02/16/2025 REASON FOR EXAM: CHEST PAIN TECHNIQUE: CHEST PA AND LATERAL COMPARISON: No FINDINGS: Normal heart size. Well inflated lungs. No consolidation, effusion, or pneumothorax. RAD/Chest PA and Lateral IMPRESSION: No acute findings Reading Location: [place] [address] CC: Dr. Elmer Arnett MD ~ Java Developer Consultant: Signed [facility]04-08-2025 Evaluation note* Diagnosis Onset Date Resolution Status Admit Date Osteoporosis chronic November 11, 025 7:49am Status post parathyroidectomy chroni c November 11, 2024 7:49am [facility] Work Phone: 1(319) 815-675204-08-2025 Evaluation note* Diagnosis Onset Date Resolution Status Admit Date Osteoporosis chronic November 11, 2 025 7:49am Status post parathyroidectomy inacti ve November 11, 2024 7:49am Dyspnea on exertion acute March 05, 2025 7:57am History of coronary artery stent placement April 22, 2003 chronic March 05, 2025 7:57am Hyperlipidemia chronic March 05, 2025 7:57am Hypertension chronic March 05 025 7:57am [facility] Work Phone: 1(821) 873-132504-07-2025 Radiology Diagnostic study note [facility] Imaging Services [address] [place] [address] Elastography Parenchyma/Organ MR#: [id number] Acct: [id number] Name: YAHAIRA PÉREZ Rep #: [id number] : 1945 M 78 From: Radha Moore MD PCP: Dr. Elmer Arnett MD Status: REG C LI Study:Elastography Parenchyma/Organ Date of E xam: 11/10/24 Exam# [id number] Ordering Dr: Elmer Arnett MD PROCEDURE: ELASTOGRAPHY PARENCHYMA/ORGAN (USELPAROG), 11/10/2024 REASON FOR EXAM: ELEVATED LIVER ENZYMES COMPARISON: 10/03/2024 TECHNIQUE: [employer] S-shear wave elastography was performed for non-invasive [...] (15kPa): Significant fibrosis / cirrhosis Reading Location: [id number] CC: Dr. Elmer Arnett MD ~ Java Developer Consultant: Signed [facility]02-28-2025 Radiology Diagnostic study note [facility] Imaging Services [address] [place] [address] Abdomen Limited MR#: [id number] Acct: [id number] Name: YAHAIRA PÉREZ Rep #: [id number] : 1945 M 78 From: Sancho Ayers MD PCP: Dr. Elmer Arnett MD Status: [facility] Study:Abdomen Limited Date of Exam: 09/07 03/30 Exam# [id number] Ordering Dr: Elmer Arnett MD PROCEDURE: ABDOMEN LIMITED REASON FOR EXAM: [...] and nonobstructive right intrarenal calculus. Reading Location: [id number] CC: Dr. Elmer Arnett MD ~ Java Developer Consultant: Signed [facility]01-17-2025 [facility] Medical Records Department [address] [place] [address] History Physical Exam 08/22/24 0648 MR#: [id number] Acct: [id number] Name: YAHAIRA PÉREZ Rep #: [id number] : 1945 78 From: Kamaljit Koehler MD PCP: Dr. Elmer Arnett MD Status:[facility] Location: [place] [address] History and Physical Date of Admission: 08/22/24 Date of Service: 08/01/24 MR#: [id number] Acct: [id number] Name: BETOYAHAIRA Mena Rep #: [id number] : 1945 Provider: Dr. Kamaljit Koehler MD Age/Sex: 78/M Location: [facility] Status: Signed Intake Vital Signs 06/10/2412:58 08/01/2408:11 Height 5 ft 9 in 5 ft 9 in Weight: 195 lb 193 lb BMI 28.8 28.5 BP 143/74 H 162/69 H Blood Pressure Location Rt brachial Rt brachial Position Sitting Sitting Respiration 18 16 Intake Visit Reasons: DISCUSS SURGERY Chief Complaint: discuss results and surgery Radiology Manager Required: No Is patient in pain?: No [...] 08/01/24 History mcg (1,000 unit) tablet omega 4-pfd-ypg-fish oil 1,200 mg cap PO BID 05/13/24 08/01/24 History (144 mg-216 mg) capsule (Fish Oil) Have you fallen in the past year?: No PFSH Medical History COVID-19 ( 09/2022) MARLYS on CPAP Vitamin D deficiency Atherosclerosis of coronary artery of [place] heart without angina pectoris Primary hyperparathyroidism History [...] the interim since his last visit Mr. Pérez completed a SPECT-CT with sestamibi 07/17/2024 with the following result: 1. ABNORMAL 99m Tc SESTAMIBI [id number] PARATHYROID IMAGING DUAL PHASE EXAMINATION. 2. 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, no muscle weakness, and no memory or concentration difficulty (more content not included)...[facility]12-27-2024 Evaluation note* Diagnosis Onset Date Resolution Status Admit Date Primary hyperparathyroidism chronic August 01, 2024 8:06am Hypoparathyroidism after procedure acute September 03 10:02am Status post parathyroidectomy acute September 03, 2024 10:02am [facility] Work Phone: 1([phone]) 628-252912-27-2024 Evaluation note* Diagnosis Onset Date Resolution Status Admit Date Primary hyperparathyroidism chronic August 01, 2024 8:06am Hypoparathyroidism after procedure acute September 03 10:02am Status post parathyroidectomy chroni c September 03, 2024 10:02am Osteoporosis chronic November 11, 025 7:49am Status post parathyroidectomy chroni c November 11, 2024 7:49am [facility] Work Phone: 1(909) 517-680211-27-2023 Note ORIGINAL EXAMINATION: RIGHT UPPER QUADRANT ULTRASOUND [...] Sign Date: 07/02/2023 11:35:30 AM Ordering Provider: [facility] summary Author Joseph Crook [facility] Note Date/Time April 01, 2025 7: 26am [facility] Medical Records Department [address] [place] [address] Emergency Department Summary 04/01/25 MR#: [id number] Acct: [id number] Name: YAHAIRA PÉREZ Rep #:[id number] : 1945 79 From: Joseph Crook MD PCP: Dr. Elmer Arnett MD Status:REG E R Location: ED [facility] HPI - GI History of Present Illness Chief Complaint: Abd Pain Informant: patient and EMS Narrative Narrative: 79-year-old male presenting with severe mid abdominal pain. He states this started yesterday while he was in the rest. Just after receiving his nuclear stress test here at the hospital. Pain has been gradually worsening all day andnight and presents here at 4:30 AM because of the severe pain now. Nausea but no vomiting. Has not had a bowel movement this morning. No problems urinating. Pain does not go into his back or chest. He denies dyspnea. [facility] Medical History Osteoporosis Wears hearing aid Wears dentures Wears glasses High cholesterol Non-smoker CPAP (continuous positive airway pressure) dependence Sleep apnea Cardiology follow-up encounter COVID-19 (~09/2022) MARLYS on CPAP Vitamin D deficiency Atherosclerosis of coronary artery of [place] heart without angina pectoris Primary hyperparathyroidism History of deep vein thrombosis of lower extremity Kidney stones Condyloma acuminata Hyperlipidemia Hyperparathyroidism RLS (restless legs syndrome) Sleep apnea Dog bite DVT (deep venous thrombosis) Home Medications ?Medication ?Instructions ?Recorded ?Last Taken ?Type metoprolol tartrate 25 mg tablet 25 mg PO BID ##0 04/0608/21/24 Rx aspirin 81 mg tablet,delayed 81 mg PO DAILY 09/03/23 0 08/21/24 History release rosuvastatin 40 mg tablet 40 mg PO DAILY 09/03/2308/06 History ascorbic acid (vitamin C) 500 mg 500 mg PO DAILY 12/1008/21/24 History capsule amlodipine 5 mg tablet 5 mg PO DAILY 12/27/2308/21 History cholecalciferol (vitamin D3) 25 50 mcg PO DAILY 08/21/24 History mcg (1,000 unit) tablet multivitamin (Daily Multi-Vitamin 1 tab PO DAILY 08/1408/21/24 History tablet) omega-3 fatty acids 1,000 mg 1,000 mg PO BID 03/05/25 Unknown History capsule pantoprazole 40 mg tablet,delayed 40 mg PO QDAY Unknown History release Allergy/AdvReac Type Severity Reaction Status Date / Time No Known Allergies Allergy Verified 04/01/25 04:27 Family History Mother Breast cancer Alzheimer disease Sister Breast cancer Myocardial infarction Father Myocardial infarction Alcohol abuse Surgical History Status post parathyroidectomy History of colonoscopy (06/02/20) History of coronary artery stent placement (04/22/03) s/p shrapnel removal S/P hernia repair Status post hemorrhoidectomy Social History Smoking Status: Never smoker alcohol intake: never substance use type: does not use caffeine: Yes Type: coffee Number of servings: 2 ROS ROS ED Constitutional Constitutional ED: Denies chills or fever(s) Eyes Eyes: Denies change in vision or diplopia ENT ENT ED: Denies rhinorrhea or sore throat Cardiovascular Cardiovascular: Denies chest pain or palpitations Respiratory/Chest Respiratory/Chest: Denies cough or dyspnea Gastrointestinal Gastrointestinal: Reports abdominal pain and nausea; Denies diarrhea or vomiting Genitourinary Genitourinary ED: Denies dysuria or hematuria Musculoskeletal Musculoskeletal: Denies back pain or neck pain Integumentary Denies abscess or rash Neurologic Neurologic: Denies headache(s), paresthesias or weakness Psychiatric Psychiatric: Denies suicidal thoughts EXAM Physical Exam Const Vital Signs: 04/01/25 04:21 04/01/25 04:23 04/01/25 04:31 Temperature 100 F H 100 F H Temperature Source Oral Oral Pulse Rate 125 H 125 H Respiratory Rate 18 19 H Blood Pressure 144/90 H 144/90 H Blood Pressure Mean 108 108 Pulse Ox 97 97 99 Oxygen Delivery Method Room Air Room Air Room Air 04/01/25 05:00 04/01/25 06:21 Temperature 100 F H 99.8 F H Temperature Source Oral Oral Pulse Rate 107 H 103 H Respiratory Rate 18 22 H Blood Pressure 116/70 103/70 Blood Pressure Mean 85 81 Pulse Ox 94 94 Oxygen Delivery Method Room Air Room Air Positive well nourished and well developed Constitutional Narrative: Uncomfortable appears to be in pain General Appearance ED: well developed and NAD HEENT Reports moist mucous membranes normocephalic and atraumatic Eyes PERRL and EOMs intact bilaterally Neck full ROM and supple Resp normal respiratory effort and clear to auscultation bilaterally Cardio regular rate, regular rhythm and no murmurs Rate: tachycardic GI GI Narrative: Distended. Diffuse abdominal tenderness without guarding or rebound. When he coughs he holds his abdomen wincing in pain. Auscultation: normoactive bowel sounds Palpation: soft and rebound tenderness present Back/Spine no CVA tenderness General Back: other FROM Extremity normal to inspection General Extremety ED: Negative for edema, pulses abnormal or tenderness General Extremity: Negative for edema or pulses abnormal Neuro oriented x3, CN's II-XII intact bilaterally and no sensory deficits noted Sensorium / Orientation: awake and alert Motor Exam: strength 5/5 throughout Psych mental status grossly normal and thought process normal Skin no rashes or lesions noted and no wounds Sepsis Attestation Sepsis Alert: Yes Sepsis Attestation: Agree w/Sepsis Date exam was performed: 04/01/25 Time exam was performed: 06:00 Possible Source of Sepsis: Pulmonary, GI tract/intra-abdominal and Genitourinary Sepsis Organ Dysfunction Criteria Present: Lactic Acid > 2 mmol/L and Serum CO2 < 20 mmol/L (on BMP) Supportive Findings: temp 100F Fluid Resuscitation Fluid resuscitation indicated?: Yes Fluid Resuscitation ordered: Lesser volume fluid bolus ordered Amount of fluid ordered: 1,000 Reason for lesser fluid bolus:: BP Responded to a lesser volume Sepsis Note Date exam was performed: 04/01/25 Time exam was performed: 06:30 Sepsis Attestation: Sepsis re-evaluation was performed (BP remains stable, HR improved; no episodes of hypotension) MDM MDM MDM Narrative Medical decision making narrative: During the initial vital sign acquisition it is noted that the patient is febrile with a temperature of 100, he is very tachycardic. His blood pressure is good and his pulse ox is 97 on room air, he is conversive in full sentences. For this reason I agree with the nurses plan to do a septic workup with blood cultures, lactic acid, and we are getting a chest x-ray stat to evaluate for both pneumonia and free air and at the diaphragm, and see no free air, he will then go to CT after we get IV fluids, morphine, Zofran going. Indeed, the 1 view chest x-ray my interpretation is normal and shows no evidenceof free air under the diaphragm. Patient feeling much better after IV fluids, morphine, Zofran. I received a call from the radiologist confirming that his abdominal/pelvis CT is consistent with acute nonperforated appendicitis. I reexamined the patient. He has mildly tender McBurney's point, he has some mildrebound tenderness, but he is comfortable. He has a lactic acidosis. Discussedwith surgery Dr. Romano who evaluated the patient in the ED and will have ptbe admitted initially and surgery a little later this AM. Although patient is meeting criteria for sepsis, he is not in shock, his vital signs are stable and improved as above, I am comfortable with him going to medical surgical floor n.p.o. with IV fluids. Lab Data Attestation: I reviewed the patient's lab results. Labs: Laboratory Results - last 24 hr 04/01/25 04/01/25 04:30 05:34 WBC 4.2 L RBC 5.14 Hgb 16.8 H Hct 47.4 MCV 92.2 MCH 32.7 H MCHC 35.4 RDW Std Deviation 42.7 RDW Coeff of Tommie 12.6 Plt Count 164 MPV 9.3 Immature Gran % (Auto) 0.200 Neut % (Auto) 88.9 H Lymph % (Auto) 8.0 L Guthrie % (Auto) 0.7 Eos % (Auto) 1.7 Baso % (Auto) 0.5 Absolute Neuts (auto) 3.8 Absolute Lymphs (auto) 0.34 L Nucleated RBC % 0 PT 14.4 INR 1.1 APTT 27.0 Sodium 139 Potassium 4.1 Chloride 102 Carbon Dioxide 18.7 L Anion Gap 18 H BUN 16 Creatinine 1.32 H Estim Creat Clear Calc 50.10 Est GFR (MDRD) Non-Af 55 L BUN/Creatinine Ratio 12.1 Glucose 117 H Lactic Acid 4.2 H* Calcium 9.7 Total Bilirubin 1.10 AST 23 ALT 26 Alkaline Phosphatase 68 Troponin T High Sens 9 D Total Protein 7.0 Albumin 4.3 Globulin 2.7 Albumin/Globulin Ratio 1.6 Lipase 32 Urine Color Yellow Urine Clarity Clear Urine pH 6.5 Ur Specific Mcintosh 1.010 Urine Protein 30 H Urine Glucose (UA) Normal Urine Ketones 5 H Urine Occult Blood Negative Urine Nitrite Negative Urine Bilirubin Negative Urine Urobilinogen Normal Ur Leukocyte Esterase Negative Urine RBC 0 SEEN Urine WBC 0 SEEN Ur Squamous Epith Cells 0 SEEN Urine Bacteria 0 SEEN Hyaline Casts 0-5 SEEN Urine Mucus 0 SEEN Radiography Diagnostic Testing: Clinical Impression(s) from Imaging Studies Abdomen/Pelvis CT 04/01/25 05:00 IMPRESSION: There is a 0.8 cm nodule in the left adrenal, Hounsfield units = 71, unchanged. Cholelithiasis. There is a 0.25 cm nonobstructing stone in the midpole of the right kidney. There is a 0.4 cm nonobstructing stone in the midpole of the left kidney. The prostate is heterogeneously enlarged, with calcifications noted. The appendix is dilated to 0.9 cm in diameter, with periappendiceal inflammation, acute appendicitis. Critical results were discussed with Dr. Crook by Dr. Montero at the time ofdictation. Reading Location: [facility] Chest X-Ray 04/01/25 05:05 IMPRESSION: No acute process is identified in the chest. Reading Location: [facility] Rhythm Strip Rhythm Strip: Sinus Tach Rate: 120 Ectopy: None EKG Initial EKG: Attestation: I personally reviewed and interpreted this EKG as follows: Interpretation: No Acute Injury Pattern and Sinus Tachycardia Comments: Tachycardia, prolonged QTc, other intervals are normal, normal axis. No acute injury. Some nonspecific ST-T wave abnormalities diffusely. Management Discussion w/another healthcare provider: It Security Administrator (gus romano) and Radiologist Critical Care Time Critical Care Time: Yes Critical care time (excluding procedures): 30-74 minutes (36 min), Including time spent:, Discussing w/Patient &/or Family/Clay Structure Builder And Servicer, Discussing w/Consultants, Arranging Admission or Transfer and Performing Direct Patient Care at Bedside Discharge Plan Dx/Rx/DC Orders Clinical Impression: Acute appendicitis, Sepsis Disposition Disposition: Acute Care Hospital [facility] What to do if you have Problems For any increased pain, shortness of breath, bleeding, nausea or vomiting, chestpain, or any unexpected problems, contact your Primary Care Provider. Call [facility] ([phone]) or report to the closest Emergency Room. Call 911 if necessary. 04/01/25 07 <Electronically signed by Joseph Crook MD> Cosigner Signature (if applicable): CC: Dr. Elmer Arnett MD ~ Signed [facility] Work Phone: Evaluation + Plan note No data available for this section [facility] Evaluation noteNo assessment information available [facility] Work Phone: Evaluation note* Diagnosis Onset Date Resolution Status History of deep vein thrombosis of lower extremity chronic [facility] Work Phone: Evaluation note* Diagnosis Onset Date Resolution Status Kidney stones chronic Primary hyperparathyroidism chronic [facility] Work Phone: History and physical note Author Finn Romano [facility] Note Date/Time April 01, 2025 7: 27am [facility] Medical Records Department [address] [place] [address] H&P Exam - Surgical 04/01/25720 MR#: [id number] Acct: [id number] Name: YAHAIRA PÉREZ Rep #:[id number] : 1945 79 From: Finn alcaraz MD PCP: Dr. Elmer Arnett MD Status:REG E R Location: ED HPI - General HPI Narrative YAHAIRA PÉREZ, is a 79 M who presents with abdominal pain that started yesterday. He reports that the pain started all over and now it is in his lower abdomen. He reports he does feel dehydrated. He reports nausea but no vomiting. He had a stress test yesterday which is when the pain started. He does have a low-grade fever. [facility] Medical History Osteoporosis Wears hearing aid Wears dentures Wears glasses High cholesterol Non-smoker CPAP (continuous positive airway pressure) dependence Sleep apnea Cardiology follow-up encounter COVID-19 (~09/2022) MARLYS on CPAP Vitamin D deficiency Atherosclerosis of coronary artery of [place] without angina pectoris Primary hyperparathyroidism History of deep vein thrombosis of lower extremity Kidney stones Condyloma acuminata Hyperlipidemia Hyperparathyroidism RLS (restless legs syndrome) Sleep apnea Dog bite DVT (deep venous thrombosis) Home Medications ?Medication ?Instructions ?Recorded ?Last Taken ?Type metoprolol tartrate 25 mg tablet 25 mg PO BID ##0 04/0608/21/24 Rx aspirin 81 mg tablet,delayed 81 mg PO DAILY 09/03/23 0 08/21/24 History release rosuvastatin 40 mg tablet 40 mg PO DAILY 09/03/2308/06 History ascorbic acid (vitamin C) 500 mg 500 mg PO DAILY 12/1008/21/24 History capsule amlodipine 5 mg tablet 5 mg PO DAILY 12/27/2308/21 History cholecalciferol (vitamin D3) 25 50 mcg PO DAILY 08/21/24 History mcg (1,000 unit) tablet multivitamin (Daily Multi-Vitamin 1 tab PO DAILY 08/1408/21/24 History tablet) omega-3 fatty acids 1,000 mg 1,000 mg PO BID 03/05/25 Unknown History capsule pantoprazole 40 mg tablet,delayed 40 mg PO QDAY Unknown History release Allergy/AdvReac Type Severity Reaction Status Date / Time No Known Allergies Allergy Verified 04/01/25 04:27 Family History Mother Breast cancer Alzheimer disease Sister Breast cancer Myocardial infarction Father Myocardial infarction Alcohol abuse Surgical History Status post parathyroidectomy History of colonoscopy (06/02/20) History of coronary artery stent placement (04/22/03) s/p shrapnel removal S/P hernia repair Status post hemorrhoidectomy Social History Smoking Status: Never smoker alcohol intake: never substance use type: does not use caffeine: Yes Type: coffee Number of servings: 2 Vital Signs Vital Signs Vital Signs: 04/01/25 04:21 04/01/25 04:23 04/01/25 04:31 Temperature 100 F H 100 F H Temperature Source Oral Oral Pulse Rate 125 H 125 H Respiratory Rate 18 19 H Blood Pressure 144/90 H 144/90 H Blood Pressure Mean 108 108 Pulse Ox 97 97 99 Oxygen Delivery Method Room Air Room Air Room Air 04/01/25 05:00 04/01/25 06:21 Temperature 100 F H 99.8 F H Temperature Source Oral Oral Pulse Rate 107 H 103 H Respiratory Rate 18 22 H Blood Pressure 116/70 103/70 Blood Pressure Mean 85 81 Pulse Ox 94 94 Oxygen Delivery Method Room Air Room Air Weight Weight: 196 lb 6.91 oz Body Mass Index (BMI) 29.0 Physical Exam Const oriented x3 and no apparent distress Resp normal respiratory effort GI soft to palpation Palpation: tender RLQ Extremity normal to inspection Results Lab / Micro Data 04/01/25 04:30 04/01/25 04:30 Labs: Laboratory Results - last 24 hr 04/01/25 04:30: WBC 4.2 L, RBC 5.14, Hgb 16.8 H, Hct 47.4, MCV 92.2, MCH 32.7 H,MCHC 35.4, RDW Std Deviation 42.7, RDW Coeff of Tommie 12.6, Plt Count 164, MPV 9.3, Immature Gran % (Auto) 0.200, Neut % (Auto) 88.9 H, Lymph % (Auto) 8.0 L, Guthrie % (Auto) 0.7, Eos % (Auto) 1.7, Baso % (Auto) 0.5, Absolute Neuts (auto) 3.8, Absolute Lymphs (auto) 0.34 L, Nucleated RBC % 0, PT 14.4, INR 1.1, APTT 27.0, Sodium 139, Potassium 4.1, Chloride 102, Carbon Dioxide 18.7 L, Anion Gap 18 H, BUN 16, Creatinine 1.32 H, Estim Creat Clear Calc 50.10, Est GFR (MDRD) Non-Af 55 L, BUN/Creatinine Ratio 12.1, Glucose 117 H, Lactic Acid 4.2 H*, Calcium 9.7, Total Bilirubin 1.10, AST 23, ALT 26, Alkaline Phosphatase 68, Troponin T High Sens 9 D, Total Protein 7.0, Albumin 4.3, Globulin 2.7, Albumin/Globulin Ratio 1.6, Lipase 32 04/01/25 05:34: Urine Color Yellow, Urine Clarity Clear, Urine pH 6.5, Ur Specific Mcintosh 1.010, Urine Protein 30 H, Urine Glucose (UA) Normal, Urine Ketones 5 H, Urine Occult Blood Negative, Urine Nitrite Negative, Urine Bilirubin Negative, Urine Urobilinogen Normal, Ur Leukocyte Esterase Negative, Urine RBC 0 SEEN, Urine WBC 0 SEEN, Ur Squamous Epith Cells 0 SEEN, Urine Bacteria 0 SEEN, Hyaline Casts 0-5 SEEN, Urine Mucus 0 SEEN Rhythm Strip Rhythm Strip: Sinus Tach Rate: 120 Ectopy: None Imaging Radiology Impression Abdomen/Pelvis CT 04/01/25 05:00 IMPRESSION: There is a 0.8 cm nodule in the left adrenal, Hounsfield units = 71, unchanged. Cholelithiasis. There is a 0.25 cm nonobstructing stone in the midpole of the right kidney. There is a 0.4 cm nonobstructing stone in the midpole of the left kidney. The prostate is heterogeneously enlarged, with calcifications noted. The appendix is dilated to 0.9 cm in diameter, with periappendiceal inflammation, acute appendicitis. Critical results were discussed with Dr. Crook by Dr. Montero at the time ofdictation. Reading Location: [facility] Chest X-Ray 04/01/25 05:05 IMPRESSION: No acute process is identified in the chest. Reading Location: [facility] Assessment & Plan Assessment/Plan (1) Acute appendicitis: QUALIFIERS: Acute appendicitis type: unspecified acute appendicitis type Qualified Code(s): K35.80 - Unspecified acute appendicitis PLAN: The patient has lower abdominal pain. CT scan revealed inflammation around the appendix which is dilated. The patient has been started on antibiotics. I discussed laparoscopic appendectomy with the patient and his . I discussed the procedure in detail and answered all questions. I discussed the risks including but not limited to bleeding, infection, injury to other organs such as the bladder, bowel, ureter. Patient understands all the risks and is willing to proceed. I will admit the patient to the floor until OR. (2) Sepsis: PLAN: Patient has elevated lactate, leukopenia, elevated creatinine. Blood cultures are pending. Continue antibiotics after surgery. Finn Romano MD Pager: [facility] [address] [place] [address], [address] [place] [address] Office: 04/01/25 [phone] <Electronically signed by Finn Romano MD> Cosigner Signature (if applicable): CC: Dr. Finn Romano MD; Dr. Elmer Arnett MD~ Signed [facility] Work Phone: Hospital Discharge instructions Additional Instructions Please follow-up with urology to discuss need for possible stent placement secondary to your kidney stone. Please return to the ER should you develop a fever over 100.4 or your pain is not controlled with [facility]WC[facility] Work Phone: [facility] instructionsWC[facility] Work Phone: Hospital Dis[facility] instructionsWC[facility] Work Phone: [facility] Dis[facility] instructionsWC[facility] Work Phone: Hospital Discharge instructions No data available for this section [facility] Progress note No data available for this section [facility] Reason for referral (narrative)No reason for referral information availableWCleveland Clinic [facility] Work Phone: Summary Purpose Family History Relationship Condition Age at Onset Recorded Date/T noy mother Malignant neoplasm of breast Unknown sister Malignant neoplasm of breast Unknown Relationship Condition Age at Onset Recorded Date/T noy mother Malignant neoplasm of breast Unknown Alzheimer's disease Unknown sister Malignant neoplasm of breast Unknown Myocardial infarction Unknown father Myocardial infarction Unknown Alcohol abuse Unknown Advance Directives Advance Directive Response Recorded Date/ Time Advance Directives Yes April 12:42am Living Will Yes December 01, 2021 12:52am Power of Caretaker Grounds No December 01 12:52am Advance Directive Response Recorded Date/ Time Advance Directives Yes April 12:42am Living Will No December 06, 2021 2: 57pm Power of Caretaker Grounds No December 06, 2021 2:57pm Advance Directive Response Recorded Date/ Time Advance Directives Yes April 11:42pm Living Will No December 06, 2021 1: 57pm Power of Caretaker Grounds No December 06, 2021 1:57pm Advance Directive Response Recorded Date/ Time Living Will Yes August 14 1:38pm Power of Caretaker Grounds Yes August 14, 2 025 1:38pm Name of Medical Power of Caretaker Grounds DTR August 14, 2024 1:38pm Advance Directives Yes April 11:42pm Advance Directive Response Recorded Date/ Time Living Will Yes August 14 2:38pm Power of Caretaker Grounds Yes August 14, 2 025 2:38pm Name of Medical Power of Caretaker Grounds DTR August 14, 2024 2:38pm Advance Directives Yes April 12:42am Advance Directive Response Recorded Date/ Time Living Will No December 06, 2021 2: 57pm Do you have a Healthcare Power of Caretaker Grounds? No December 06, 2021 2:57pm Living Will Yes August 14 2:38pm Do you have a Healthcare Power of Caretaker Grounds? Yes August 14, 2024 2:38pm Name of Medical Power of Caretaker Grounds DTR August 14, 2024 2:38pm Advance Directives Yes April 12:42am Advance Directive Response Recorded Date/ Time Living Will No December 06, 2021 2: 57pm Do you have a Healthcare Power of Caretaker Grounds? No December 06, 2021 2:57pm Advance Directives Yes April 12:42am Advance Directive Response Recorded Date/ Time Do you have a Healthcare Power of Caretaker Grounds? No April 01, 2025 4:24am Advance Directives Yes April 12:42am Chief Complaint [...] am Hypertension March 05, 2025 7:57 am Chief Complaint Admit Date chest pain February 18, 2025 6:52 am chest pain February 18, 2025 7:02 am 1 Y FU March 05, 2025 7:57 am CP March 31, 2025 6: 14am CP March 31, 2025 2: 26pm ACUTE APPENDICITIS April 01, 2025 7: 18am ABD PAIN April 01, 2025 7: 21am Reason for Visit Admit Date Dyspnea on exertion March 05, 2025 7:57 am History of coronary artery stent placeme nt March 05, 2025 7:57am Hyperlipidemia March 05, 2025 7:57 am Hypertension March 05, 2025 7:57 am Acute appendicitis April 01, 2025 7: 18am Sepsis April 01, 2025 7: 18am Additional Source Comments (unrecognized sect ion and content) No Status Records FoundNo Status Records FoundNo Status Records Found INFORMATION SOURCE (unrecogn ized section and content) DATE CREATED AUTHOR 02/02/2018 [facility] ([place]) DATE CREATED AUTHOR AUTHOR'S ORGANIZ ATION 07/04/2023 [facility] ([place]) DATE CREATED AUTHOR AUTHOR'S ORGANIZ ATION 03/31/2025 [facility] Goals (unrecognized section and content) Goals may [...] Active Member Role/Relationship Status Dates Dr. Elmer Arnett MD Primary Care Provider Active Team Status: Inactive Member Role/Relationship Status Dates Dr. Elmer Arnett MD Primary Care Provider Active Start: November 10, 2024 End: November 10, 2024 Dr. Elmer Arnett MD Attending Provider Active Start: November 10, 2024 End: November 10, 2024 Dr. Elmer Arnett MD Referring Provider Active Start: November 10, 2024 End: November 10, 2024 Team Status: Inactive Member Role/Relationship Status Dates Dr. Elmer Arnett MD Primary Care Provider Active Start: November 11, 2024 End: November 11, 2024 Dr. Elmer Arnett MD Referring Provider Active Start: November 11, 2024 End: November 11, 2024 Dr. Jared Padilla MD Attending Provider Active Sta rt: November 11, 2024 End: November 11, 2024 Team Status: Inactive Member Role/Relationship Status Dates Dr. Elmer Arnett MD Primary Care Provider Active Start: February 16, 2025 End: February 16, 2025 Dr. Elmer Arnett MD Attending Provider Active Start: February 16, 2025 End: February 16, 2025 Dr. Elmer Arnett MD Referring Provider Active Start: February 16, 2025 End: February 16, 2025 Team Status: Active Member Role/Relationship Status Dates Dr. Elmer Arnett MD Primary Care Provider Active Start: February 18, 2025 Dr. Elmer Arnett MD Attending Provider Active Start: February 18, 2025 Dr. Elmer Arnett MD Referring Provider Active Start: February 18, 2025 Team Status: Active Member Role Status Dates Dr. Elmer Arnett MD Primary Care Provider Active Team Status: Inactive Member Role Status Dates Dr. Elmer Arnett MD Primary Care Provider Active Start: June 13, 2024 End: June 13, 2024 Dr. Elmer Arnett MD Attending Provider Active Start: June 13, 2024 End: June 13, 2024 Team Status: Inactive Member Role Status Dates Dr. Elmer Arnett MD Primary Care Provider Active Start: July 17, 2024 End: July 17, 2024 Dr. Kamaljit Koehler MD Attending Provider Active Start: July 17, 2024 End: July 17, 2024 Dr. Kamaljit Koehler MD Referring Provider Active Start: July 17, 2024 End: July 17, 2024 Team Status: Inactive Member Role Status Dates Dr. Elmer Arnett MD Primary Care Provider Active Start: August 01, 2024 End: August 01, 2024 Dr. Elmer Arnett MD Referring Provider Active Start: August 01, 2024 End: August 01, 2024 Dr. Kamaljit Koehler MD Attending Provider Active Start: August 01, 2024 End: August 01, 2024 Team Status: Active Member Role Status Dates Dr. Elmer Arnett MD Primary Care Provider Active Start: August 15, 2024 End: August 15, 2024 Dr. Kamaljit Hendricks MD Attending Provider Active Start: August 15, 2024 End: August 15, 2024 Dr. Live Muñoz MD Referring Provider Active St art: August 15, 2024 End: August 15, 2024 Team Status: Inactive Member Role Status Dates Dr. Elmer Arnett MD Primary Care Provider Active Start: August [...] Active Member Role Status Dates Dr. Elmer Arnett MD Primary Care Provider Active Start: August 22, 2024 Dr. Kamaljit Koehler MD Attending Provider Active Start: August 22, 2024 Dr. Kamaljit Koehler MD Referring Provider Active Start: August 22, 2024 Dr. Kamaljit Koehler MD Other Provider Active Sta rt: August 22, 2024 Dr. Live Muñoz MD Other Provider Active Start: August 22, 2024 Team Status: Inactive Member Role Status Dates Dr. Elmer Arnett MD Primary Care Provider Active Start: September 03, 2024 End: September 03, 2024 Dr. Elmer Arnett MD Referring Provider Active Start: September 03, 2024 End: September 03, 2024 Dr. Kamaljit Koehler MD Attending Provider Active Start: September 03, 2024 End: September 03, 2024 Team Status: Inactive Member Role Status Dates Dr. Elmer Arnett MD Primary Care Provider Active Start: September 03, 2024 End: September 03, 2024 Dr. Kamaljit Koehler MD Attending Provider Active Start: September 03, 2024 End: September 03, 2024 Dr. Kamaljit Koehler MD Referring Provider Active Start: September 03, 2024 End: September 03, 2024 Team Status: Inactive Member Role Status Dates Dr. Elmer Arnett MD Primary Care Provider Active Start: September 10, 2024 End: September 10, 2024 Migdalia MORALES PA-C Attending Provider Active Start: September 10, 2024 End: September 10, 2024 Migdalia MORALES PA-C Referring Provider Active Start: September 10, 2024 End: September 10, 2024 Team Status: Inactive Member Role Status Dates Dr. Elmer Arnett MD Primary Care Provider Active Start: September 15, 2024 End: September 15, 2024 Dr. Kamaljit Koehler MD Attending Provider Active Start: September 15, 2024 End: September 15, 2024 Dr. Kamaljit Koehler MD Referring Provider Active Start: September 15, 2024 End: September 15, 2024 Team Status: Inactive Member Role Status Dates Dr. Elmer Arnett MD Primary Care Provider Active Start: September 29, 2024 End: September 29, 2024 Dr. Jared Padilla MD Attending Provider Active Sta rt: September 29, 2024 End: September 29, 2024 Dr. Jared Padilla MD Referring Provider Active Sta rt: September 29, 2024 End: September 29, 2024 Team Status: Active Member Role Status Dates Dr. Elmer Arnett MD Primary Care Provider Active Start: October 03, 2024 Dr. Elmer Arnett MD Attending Provider Active Start: October 03, 2024 Dr. Elmer Arnett MD Referring Provider Active Start: October 03, 2024 Team Status: Active Member Role Status Dates [place] Hospital Family Provider Active Dr. Elmer Arnett MD Primary Care Provider Active Team Status: Inactive Member Role Status Dates [facility] Referring Provider Active Dr. Jared Padilla MD Attending Provider Active Dr. Elmer Arnett MD Primary Care Provider Active Team Status: Inactive Member Role Status Dates Dr. Jared Padilla MD Attending Provider Active Team Status: Inactive Member Role Status Dates Dr. Elmer Arnett MD Primary Care Provider, Attending Provider Active [...] BE BASED ON THE PRIMARY CLINICAL RECORDS. [employer] provides no warranty or guarantee of the accuracy or completeness of information in this document.
[2025-04-01 08:40] LABS: Reflex Lactate? Y
[2025-04-01] MEDS: 0.9% Normal Saline (1000mL) 1,000 ML 100 ML IV ×2 (09:47→16:32)
[2025-04-01 10:25] LABS: Troponin T High Sens 4 HR 22 ng/L (<=22)
[2025-04-01] MEDS: 0.9% Normal Saline (1000mL) 1,000 ML 15 ML IV (12:25)
--- NOTE | 2025-04-01 12:28 | PRE.ANES_ITS ---
ASA Classification* ASA Classification ASA Classification: 3 Assessment & Plan Anesthesia* Anesthesia Assessment Anesthesia Assessment: Discussed sedation and/or anesthesia options, risks, benefits, and alternatives with patient/parents/legal guardian/POA. Questions invited. The patient/parents/legal guardian/POA seems to understand and agrees to proceed with anesthesia plan. Reviewed the physical assessment, medical history, allergy history and patient home medications list prior to surgery/procedure/anesthetic and documented any changes. Performed airway and anesthesia risk assessments. Anesthesia Type Anesthesia Type: General History Source History Obtained from:: Patient and Chart Anesthesia Focused Assessment* Temperature: 98.4 F Pulse Rate: 94 Blood Pressure: 107/71 Respiratory Rate: 17 Pulse Ox: 96 Oxygen Delivery Method: Room Air Airway Assessment Mouth opens: 2 cm Mallampati Score: II Teeth Condition: Missing Neck Range of motion (ROM): Full ROM Labs Anesthesia Preop lab: CBC WBC 4.2 K/mm3 (4.4-11.0) L 04/01/25 04:04/01/25 RBC 5.14 M/mm3 (4.6-6.2) 04/01/25 04:30 04/01/25 Hgb 16.8 g/dL (13.0-16.5) H 04/01/25 04:30 5 Hct 47.4 % (40-54) 04/01/25 04:30 04/01/25 Plt Count 164 K/mm3 (150-450) 04/01/25 04:30 04/01/25 CHEMISTRY Potassium 4.1 mmol/L (3.3-5.1) 04/01/25 04:30 04/01/25 Sodium 139 mmol/L (133-145) 04/01/25 04:30 04/01/25 Magnesium 2.4 mg/dL (1.6-2.6) 09/15/24 14:43 09/15/24 BUN 16 mg/dL (4-19) 04/01/25 04:30 04/01/25 Creatinine 1.32 mg/dL (0.70-1.20) H 04/01/25 04:30 Glucose 117 mg/dL (70-99) H 04/01/25 04:30 04/01/25 TSH 1.930 uIU/mL (0.300-4.200) 04/01/25 09:14 08/2 02/27 COAG PT 14.4 SECONDS (11.7-14.9) 04/01/25 04:30 Pre-Assessment Diagnosis/Proposed Procedure Planned Operative Procedure(s): Laparoscopic appendectomy Anesthesia History Anesthesia History - district service manager: Anesthesia History - district service manager Hx Hospitalization No 08/14/24 13:38 Any Problems With Anesthesia No 04/01/25 08:27 Cholinesterase deficiency No 04/01/25 08:27 You/Your Family Experience No 04/01/25 08:27 fever (hyperthermia) with Relationship Recent Exposure to Contagious No 04/01/25 08:27 Disease Does patient have nerve No 04/01/25 08:27 stimulator Patient instructed to have No 04/01/25 08:27 device shut off --Does patient have Pacemaker or ICD? When Was Last Pacemaker Check QUESTION #4 FULL TEXT: You/Your Family Experience fever (hyperthermia) with Anesthesia Last Oral Intake Last Oral intake: Last Oral Intake NPO since Meds taken in AM with sips of water? Meds patient instructed to take am of surgery PONV PONV - district service manager: PONV - district service manager Female HX of Motion Sickness HX of N/V After Surgery Non-Smoker Duration of Surgery greater than 60 minutes Number of Risk Factors PONV Score Height & Weight Height & Weight: Anesthesia: Height & Weight Height 5 ft 9 in 04/01/25 08:19 Weight: 88.451 kg 04/01/25 11:33 Body Mass Index (BMI) 28.8 04/01/25 08:19 Respiratory Assessment Respiratory Assessment - district service manager: Respiratory Tract Infection Hx - district service manager Hx Respiratory Tract Infection No 04/01/25 08:27 STOP Sleep Apnea STOP Sleep Apnea - district service manager: STOP Sleep Apnea - district service manager Hx Hypertension Yes 04/01/25 08:19 Hx Sleep Apnea Yes 04/01/25 08:19 CPAP Yes 04/01/25 08:19 BIPAP No 04/01/25 08:19 Do you snore loudly (louder than talking or can be heard Do you often feel tired/ fatigued/ sleepy during daytime? Has anyone observed you stop breathing during sleep? STOP Results Positive 04/01/25 08:19 QUESTION #5 FULL TEXT : Do you snore loudly (louder than talking or can be heard through closed doors)? 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 Specify any problems Hx of Preganancy in last 3 N/A 04/01/25 08:19 Months Nurse Filling Out Transfusion TWOLF 04/01/25 08:19 & Questions: Date: 04/01/25 04/01/25 08:19 Time: 08:21 04/01/25 08:19 Patient unable to answer at this time (ie. confused, unrespo /Reproduction History /Reproductive History - district service manager: /Reproductive Hx- district service manager Hx Now No 04/01/25 08:27 Gestational Age (in weeks): EDC: Hx Hx Para Hx Section SAB No 04/01/25 08:27 Active Medications Active Medications: Current Medications Generic Name Dose Route Start Last Admin Trade Name Freq PRN Reason Stop Dose Admin Acetaminophen 650 mg 04/01/25 07:18 Acetaminophen 325 Mg Tablet PO Q4H PRN PRN Pain 1-10 or Fever Sodium Chloride 1,000 mls @ 100 mls/hr 04/01/25 07:20 04/01/25 09:47 IV 100 mls/hr .Q10H FAYE Administration Piperacillin Sod/Tazobactam 50 mls @ 12.5 mls/hr 04/01/25 14:00 Sod 3.375 gm/ Sodium Chloride IV Q8 FAYE Sodium Chloride 250 mls @ 15 mls/hr 04/01/25 08:25 IV .[id number] PRN Saline Flush Sodium Chloride 250 mls @ 15 mls/hr 04/01/25 08:25 IV .[id number] PRN Additional IVPB Infusion Sodium Chloride 1,000 mls @ 15 mls/hr 04/01/25 12:25 04/01/25 12:25 IV 15 mls/hr .Q48H FAYE Administration Morphine Sulfate 2 - 4 mg 04/01/25 07:18 Morphine 2 Mg/Ml Syringe IV Q2H PRN PRN Pain Score 4-10 Morphine Sulfate 2 - 4 mg 04/01/25 07:47 Morphine 4 Mg/Ml Syringe IV Q2H PRN PRN Pain Score 4-10 Ondansetron HCl 4 mg 04/01/25 07:18 Ondansetron 4 Mg/2 Ml Vial IV Q6H PRN PRN NAUSEA/VOMITING Sodium Chloride 10 - 40 ml 04/01/25 07:18 0.9% Saline Lock 10 Ml Syringe IV UD PRN SALINE FLUSH Sodium Chloride 10 - 40 ml 04/01/25 07:18 0.9% Saline Lock 10 Ml Syringe IV UD PRN SALINE FLUSH Sodium Chloride 10 - 40 ml 04/01/25 08:25 0.9% Saline Lock 10 Ml Syringe IV UD PRN SALINE FLUSH PFSH Medical History Osteoporosis Wears hearing aid Wears dentures Wears glasses High cholesterol Non-smoker CPAP (continuous positive airway pressure) dependence Sleep apnea Cardiology follow-up encounter COVID-19 (~09/2022) MARLYS on CPAP Vitamin D deficiency Atherosclerosis of coronary artery of [place] heart without angina pectoris Primary hyperparathyroidism History of deep vein thrombosis of lower extremity Kidney stones Condyloma acuminata Hyperlipidemia Hyperparathyroidism RLS (restless legs syndrome) Sleep apnea Dog bite DVT (deep venous thrombosis) Home Medications ?Medication ?Instructions ?Recorded ?Last Taken ?Type metoprolol tartrate 25 mg tablet 25 mg PO BID ##0 04/0608/21/24 Rx aspirin 81 mg tablet,delayed 81 mg PO DAILY 09/03/23 0 08/21/24 History release rosuvastatin 40 mg tablet 40 mg PO DAILY 09/03/2308/06 History ascorbic acid (vitamin C) 500 mg 500 mg PO DAILY 12/1008/21/24 History capsule amlodipine 5 mg tablet 5 mg PO DAILY 12/27/2308/21 History cholecalciferol (vitamin D3) 25 50 mcg PO DAILY 08/21/24 History mcg (1,000 unit) tablet multivitamin (Daily Multi-Vitamin 1 tab PO DAILY 08/1408/21/24 History tablet) omega-3 fatty acids 1,000 mg 1,000 mg PO BID 03/05/25 Unknown History capsule pantoprazole 40 mg tablet,delayed 40 mg PO QDAY Unknown History release Allergy/AdvReac Type Severity Reaction Status Date / Time No Known Allergies Allergy Verified 04/01/25 04:27 Family History Mother Breast cancer Alzheimer disease Sister Breast cancer Myocardial infarction Father Myocardial infarction Alcohol abuse Surgical History Status post parathyroidectomy History of colonoscopy (06/02/20) History of coronary artery stent placement (04/22/03) s/p shrapnel removal S/P hernia repair Status post hemorrhoidectomy Social History Smoking Status: Never smoker alcohol intake: never substance use type: does not use caffeine: Yes Type: coffee Number of servings: 2 Review of Systems (Anesthesia) ROS Narrative System reviewed and no additional complaints, except as documented.
[2025-04-01] MEDS: 0.9% Normal Saline (1000mL) 600 ML IV (12:34)
[2025-04-01] MEDS: Lidocaine 1% (5 ml sdv) 5 ML Vial 10 ML IV (12:42)
--- NOTE | 2025-04-01 13:00 | APP_PTH ---
PATIENT: YAHAIRA PÉREZ LOC: [facility] U#:[id number] AGE/SX: 79/M ROOM: [place] RE04/01/[address]: Dr. Finn Romano MD : 1945 BED: 1 DIS: 04/02/2025 SPEC #: [id number] RECD: 04/02/25 07:54 STATUS: KENDRA REJenny #: [id number] SKYE: 04/01/25 13:[address]: Finn Romano DEPT: SURGICAL PATHOLOGY RECD BY: Zan Navarro ENTERED: 04/02/25 10:30 SP TYPE: APPENDIX OTHR DR: Dr. Elmer Arnett MD Tissues: A - Appendix, NOS Procedures: Surgery Specimen Level III HEADER OPERATION: Laparoscopic appendectomy PRE-OP DIAGNOSIS: Acute appendicitis, sepsis TISSUE SUBMITTED: A- Appendix MICROSCOPIC DIAGNOSIS A. Appendix, laparoscopic appendectomy: - Acute appendicitis. MICROSCOPIC DESCRIPTION Slides are reviewed. GROSS DESCRIPTION A. Received in formalin labeled with the patient's name and date of . Designated as appendix is a 6.8 x 0.8 cm crockett-pink to red, congested patchy serosal adhesions. The margin is inked black and shaved. Sectioning reveals a crockett-pink to red, congested wall with semisolid fecal material within the lumen to include a possible fecalith. The distal tip is slightly irregular and fibrotic however, no definitive lesions are grossly identified. Railroad Signal Operator sections are submitted in 2 cassettes as follows: A1: Distal tipA2: Margin, cross-sections TN 04/02/2025 CPT:03494
[2025-04-01] MEDS: fentaNYL 100 MCG/2 ML Ampul IV (13:06)
--- NOTE | 2025-04-01 13:41 | OP.PCM_ITS ---
Operative Report (Standard) Operative Information Date of Procedure: 04/01/25 Pre-Operative Diagnosis: Acute appendicitis Post-Operative Diagnosis: Acute appendicitis Surgery/Procedure Performed: Laparoscopic appendectomy bander and cellophaner machine: No Type of Anesthesia: General/Regional RN Documented Start/Stop Times: Operation Date: 04/01/25 13:00 Case Time Into Pre-Op 04/01/25 12:10 Out of Pre-Op 04/01/25 12:27 Anesthesia Start 04/01/25 12:34 Into Room 04/01/25 12:34 Procedure Start 04/01/25 12:51 Procedure End 04/01/25 13:39 Procedure Start Time: 12:51 Procedure Stop Time: 13:39 Select all DRAINS/GRAFTS/IMPLANTS that apply: None Estimated Blood Loss: 5 Specimen collected: Yes Description of specimen(s) removed: Appendix Description of surgery: The patient was brought into the operating room and general anesthesia was induced. The left arm was tucked and the abdomen was prepped and draped in usual sterile fashion. A small midline incision was made superior to the umbilicus and deepened to the level of the fascia. The fascia was elevated and incised. The peritoneum was also elevated and incised. A finger sweep was pe rformed and a balloon trocar was placed into the abdomen and inflated. The abdomen was insufflated to 15 mmHg and the camera was inserted and the abdomen was inspected for any injuries upon entering the abdomen. There were none. The patient was placed in Trendelenburg position and a 5 mm ports placed in the left lower quadrant and suprapubic areas under direct visualization. Next using atraumatic bowel graspers the appendix was identified. The appendix was grasped and elevated and Enseal was used to take down the mesoappendix. A stapler was used to come across the base of the appendix. The appendix was then placed in Endo Catch bag and removed through the umbilical incision. The staple line was inspected and found to be hemostatic and intact. The 2 5 mm ports are removed under direct visualization. The balloon trocar was deflated and removed and all the air was removed from the abdomen. The umbilical incision fascia was closed with an 0 Vicryl [id number] suture. The incisions were then irrigated with saline and dried. Local anesthetic was injected into the incision sites. The skin incisions were then closed with interrupted 4-0 Monocryl suture and Steri- Strips. Bandages were applied and the patient was awoken and taken to PACU in stable condition. Patient tolerated the procedure well. Surgical Findings: Retrocecal appendix Complications Complications: No Admit VTE Documentation VTE Mechan Device Prophylaxis: SCD's
--- NOTE | 2025-04-01 13:52 | PCM.POST.ANE ---
Anesthesia: Postop Eval I Current Vital Signs Temperature: 97.6 F Pulse Rate: 74 Blood Pressure: 139/70 Respiratory Rate: 16 Pulse Ox: 100 Oxygen Delivery Method: Simple Mask Oxygen Flow Rate (L/min): 6 Assessment Airway patent: Yes Spontaneous unlabored respirations: Yes Mental status: Awake and Calm nausea: No Vomiting: No Anesthesia Complication: No Fluid Hydration Crystalloid volume administer (ml): 600 Total IV fluid infused: 600 Progress Note Anesthesia document: Postop Eval 1 completed: Yes
--- NOTE | 2025-04-01 14:40 | POSTOPAN2_ITS ---
Anesthesia Postop Eval I Sum Postop Eval Completion status Anesthesia document: Postop Eval 1 completed: Yes Anesthesia Postop Eval I Summary Anesthesia Postop Eval I Summary: Anesthesia Postop Eval I: Assessment Summary Airway patent Yes 04/01/25 13:53 CAREER DEVELOPMENT ENGINEER.SKOBY Spontaneous unlabored Yes 04/01/25 13:53 CAREER DEVELOPMENT ENGINEER.MICHELET respirations Mental status Awake,Calm 04/01/25 13:53 CAREER DEVELOPMENT ENGINEER.ANUJOBFelecia nausea No 04/01/25 13:53 CAREER DEVELOPMENT ENGINEER.ANUJOBFelecia Vomiting No 04/01/25 13:53 CAREER DEVELOPMENT ENGINEER.MICHELET Anesthesia Postop Eval I: Fluid Summary Crystalloid volume administer 600 04/01/25 13:53 CAREER DEVELOPMENT ENGINEER.ANUJOBY (ml) Colloids volume administered ( ml) Blood Product volume administered (ml) Total IV fluid infused 600 04/01/25 13:53 CAREER DEVELOPMENT ENGINEER.MICHELET Anesthesia Postop Eval I: Summary Notes Anesthesia Complication No 04/01/25 13:53 CAREER DEVELOPMENT ENGINEER.MICHELET Anesthesia Complication Comment: Post-operative progress note Anesthesia: Postop Eval II Evaluation Mental status: Awake Pain Level: 0 nausea: No Vomiting: No Complications Anesthesia Complication: No
--- NOTE | 2025-04-01 14:40 | PCM.POSTANE2 ---
Anesthesia Postop Eval I Sum Postop Eval Completion status Anesthesia document: Postop Eval 1 completed: Yes Anesthesia Postop Eval I Summary Anesthesia Postop Eval I Summary: Anesthesia Postop Eval I: Assessment Summary Airway patent Yes 04/01/25 13:53 ECONOMIC ANALYST.SKOBY Spontaneous unlabored Yes 04/01/25 13:53 ECONOMIC ANALYST.MICHELET respirations Mental status Awake,Calm 04/01/25 13:53 ECONOMIC ANALYST.ANUJOBFelecia nausea No 04/01/25 13:53 ECONOMIC ANALYST.ANUJOBFelecia Vomiting No 04/01/25 13:53 ECONOMIC ANALYST.MICHELET Anesthesia Postop Eval I: Fluid Summary Crystalloid volume administer 600 04/01/25 13:53 ECONOMIC ANALYST.ANUJOBY (ml) Colloids volume administered ( ml) Blood Product volume administered (ml) Total IV fluid infused 600 04/01/25 13:53 ECONOMIC ANALYST.MICHELET Anesthesia Postop Eval I: Summary Notes Anesthesia Complication No 04/01/25 13:53 ECONOMIC ANALYST.MICHELET Anesthesia Complication Comment: Post-operative progress note Anesthesia: Postop Eval II Evaluation Mental status: Awake Pain Level: 0 nausea: No Vomiting: No Complications Anesthesia Complication: No
--- NOTE | 2025-04-01 16:12 | CASEMGMT ---
Met with patient to review GALINDO form. GALINDO form and its content were verbally explained and patient?s questions were answered to the best of my ability. Patient voiced understanding and signed GALINDO form. Patient provided a copy of signed GALINDO form and original placed in patient?s chart. Patient had no further questions or concerns.
[2025-04-01] MEDS: Piperacil/Tazobactam 3.375 GM in 0.9% Normal Saline (50mL MB+) 50 ML IV ×2 (16:33→22:17)
[2025-04-02 03:01] VITALS: BP 96/62; PULSE 67; RESP 16; TEMP 36.6; O2SAT 94
[2025-04-02] MEDS: 0.9% Normal Saline (1000mL) 1,000 ML 100 ML IV (03:37)
[2025-04-02] MEDS: Piperacil/Tazobactam 3.375 GM in 0.9% Normal Saline (50mL MB+) 50 ML IV (05:54)
[2025-04-02 07:28] LABS: Hematocrit 37.4 % (40-54); Hemoglobin 12.8 g/dL (13.0-16.5); Immature Granulocytes Count 0.100 X10^3/uL (0.0-0.0); Mean Corp Hgb Conc 34.2 g/dL (32-36); Mean Corpuscular Volume 94.7 fL (80-94); Mean Platelet Vol. 9.8 fl (6.2-12.0); NRBC Flagged by Analyzer 0 % (0-5); Platelet Count 151 K/mm3 (150-450); RBC Distribution Width CV 13.2 % (11.6-14.6); RBC Distribution Width SD 45.8 fl (35.1-43.9); Red Blood Count 3.95 M/mm3 (4.6-6.2); White Blood Count 11.9 K/mm3 (4.4-11.0)
[2025-04-02 08:07] LABS: Anion Gap 9 (5-15); BUN 16 mg/dL (4-19); BUN/Creat Ratio 14.1 RATIO (10-20); Calcium,Total 7.8 mg/dL (7.6-11.0); Carbon Dioxide 20.8 mmol/L (21.0-32.0); Chloride 109 mmol/L (98-108); Estimated Creatinine Clearance 59.38 ml/min (50-250); Glucose 110 mg/dL (70-99); Potassium 4.2 mmol/L (3.3-5.1)
[2025-04-02 08:37] VITALS: BP 111/62; PULSE 67; RESP 18; TEMP 36.3; O2SAT 95
--- NOTE | 2025-04-02 09:33 | CASEMGMT ---
Social Work SW spoke with patient in his room. Patient reported he has a completed LW and POA, and he will provide the hospital a copy. TASHI Roman
--- NOTE | 2025-04-02 09:57 | PCM.PN.SRG ---
Subjective Subjective Patient reports tolerating clear liquid diet. He says he is doing well with no abdominal pain and his passing flatus. Objective Data Objective Data Vital Signs: Vital Signs Temp Pulse Resp BP Pulse Ox O2 Del Method O2 Flow Rate 97.4 F L 67 18 111/62 95 Room Air 6 04/02/25 08:37 04/02/25 08:37 04/02/25 08:37 04/02/25 08:37 04/02/25 08:37 04/02/25 08:37 04/01/25 13:53 Oxygen Flow Rate (L/min) 6 Oxygen Delivery Method Room Air Weight: 195 lb Body Mass Index (BMI) 28.8 Intake & Output: Intake and Output for Last 24 Hours 03/31/25 04/01/25 04/02/25 23:59 23:59 23:59 Intake Total 2417.25 / 2417.25 1050 / 1050 Output Total / Balance 2412.25 / 2412.25 1050 / 1050 Lab / Micro Data 04/02/25 06:20 04/02/25 06:20 Labs: Laboratory Results - last 24 hr 04/01/25 09:14: Lactic Acid 1.4, Troponin T Hi Sens 4Hr 22, TSH 1.930 04/02/25 06:20: WBC 11.9 H, RBC 3.95 L, Hgb 12.8 L, Hct 37.4 L, MCV 94.7 H, MCH 32.4 H, MCHC 34.2, RDW Std Deviation 45.8 H, RDW Coeff of Tommie 13.2, Plt Count 151, MPV 9.8, Immature Gran % (Auto) 0.800, Neut % (Auto) 84.9 H, Lymph % (Auto) 5.4 L, Davison % (Auto) 8.7, Eos % (Auto) 0.0, Baso % (Auto) 0.2, Absolute Neuts (auto) 10.1 H, Absolute Lymphs (auto) 0.64 L, Nucleated RBC % 0, Sodium 139, Potassium 4.2, Chloride 109 H, Carbon Dioxide 20.8 L, Anion Gap 9, BUN 16, Creatinine 1.11, Estim Creat Clear Calc 59.38, Est GFR (MDRD) Non-Af 68, BUN/Creatinine Ratio 14.1, Glucose 110 H, Calcium 7.8 Micro: Microbiology 08/27/25 05:34 Urine, Clean Catch Urine Culture - Preliminary Culture exhibits no growth. 04/01/25 05:24 Blood Culture (Wb) - Anticubital Left Blood Culture - Preliminary 04/01/25 04:30 Blood Culture (Wb) - Anticubital Left Blood Culture - Preliminary Rhythm Strip Rhythm Strip: Sinus Tach Rate: 120 Ectopy: None Physical Exam Const oriented x3 and no apparent distress Resp normal respiratory effort GI soft to palpation and non-tender Assessment & Plan Assessment/Plan (1) Acute appendicitis: QUALIFIERS: Acute appendicitis type: unspecified acute appendicitis type Qualified Code(s): K35.80 - Unspecified acute appendicitis PLAN: Patient is doing well after laparoscopic appendectomy. His blood cultures did show gram-negative rods so I will send him home on oral antibiotics. He is tolerating clear liquids I will advance him to a regular diet as long as he tolerates this I will discharge him home. Finn Romano MD Pager: [facility] [address] [place] [address] [address] [place] [address] Office:
--- NOTE | 2025-04-02 09:57 | PCM.DC.SUM ---
Providers Date of Admission: 04/01/25 Primary Care Physician: Dr. Elmer Arnett MD Reason For Visit: ACUTE APPENDICITIS Diagnosis Discharge Diagnosis (1) Acute appendicitis: Status: Acute Code(s): K35.80 - Unspecified acute appendicitis Qualifiers: Acute appendicitis type: unspecified acute appendicitis type Qualified Code(s): K35.80 - Unspecified acute appendicitis Plan: Patient is doing well after laparoscopic appendectomy. His blood cultures did show gram-negative rods so I will send him home on oral antibiotics. He is tolerating clear liquids I will advance him to a regular diet as long as he tolerates this I will discharge him home. Finn Romano MD Pager: [facility] [address] [place] [address], [address] [place] [address] Office: Medications at Discharge Home Medications metoprolol tartrate 25 mg tablet 25 mg PO BID ##0 04/19/15 aspirin 81 mg tablet,delayed release 81 mg PO DAILY 09/03/23 rosuvastatin 40 mg tablet 40 mg PO DAILY 09/03/23 ascorbic acid (vitamin C) 500 mg capsule 500 mg PO DAILY 12/11/23 amlodipine 5 mg tablet 5 mg PO DAILY 12/27/23 cholecalciferol (vitamin D3) 25 mcg (1,000 unit) tablet 50 mcg PO DAILY 05/13/24 multivitamin (Daily Multi-Vitamin tablet) 1 tab PO DAILY 08/14/24 omega-3 fatty acids 1,000 mg capsule 1,000 mg PO BID 03/05/25 pantoprazole 40 mg tablet,delayed release 40 mg PO QDAY 03/05/25 ciprofloxacin HCl 500 mg tablet (Cipro) 500 mg PO BID #14 tabs 04/02/25 oxycodone 5 mg tablet 5 - 10 mg (1 - 2 x 5 mg) PO Q4H PRN PRN Pain Score 4-10 5 days #7 tabs 04/02/25 Hospital Course Operations appendectomy Summary of Care Provided Hospital Course: The patient came in with fevers and tachycardia consistent with sepsis. CT revealed acute appendicitis. He was taken for surgery and laparoscopic appendectomy was performed. The patient's blood cultures did show bacteremia. He will be sent home on oral antibiotics. Weight / BMI Weight Weight: 195 lb Body Mass Index (BMI) 28.8 ABG / Lab / Microbiology Data 04/02/25 06:20 04/02/25 06:20 Laboratory: Laboratory Results - last 24 hr 04/01/25 09:14: Lactic Acid 1.4, Troponin T Hi Sens 4Hr 22, TSH 1.930 04/02/25 06:20: WBC 11.9 H, RBC 3.95 L, Hgb 12.8 L, Hct 37.4 L, MCV 94.7 H, MCH 32.4 H, MCHC 34.2, RDW Std Deviation 45.8 H, RDW Coeff of Tommie 13.2, Plt Count 151, MPV 9.8, Immature Gran % (Auto) 0.800, Neut % (Auto) 84.9 H, Lymph % (Auto) 5.4 L, [place] % (Auto) 8.7, Eos % (Auto) 0.0, Baso % (Auto) 0.2, Absolute Neuts (auto) 10.1 H, Absolute Lymphs (auto) 0.64 L, Nucleated RBC % 0, Sodium 139, Potassium 4.2, Chloride 109 H, Carbon Dioxide 20.8 L, Anion Gap 9, BUN 16, Creatinine 1.11, Estim Creat Clear Calc 59.38, Est GFR (MDRD) Non-Af 68, BUN/Creatinine Ratio 14.1, Glucose 110 H, Calcium 7.8 Microbiology: Microbiology 04/01/25 05:34 Urine, Clean Catch Urine Culture - Preliminary Culture exhibits no growth. 04/01/25 05:24 Blood Culture (Wb) - Anticubital Left Blood Culture - Preliminary 04/01/25 04:30 Blood Culture (Wb) - Anticubital Left Blood Culture - Preliminary D/C Instructions Discharge Activity: May Not Drive (for 2-3 days or while taking narcotic pain medications) and May Shower Lifting Restrictions: 15 pounds for 2 weeks Call your doctor if your incision/area has: Continuous Slow Oozing, Sudden Increased Bleeding, Increased Pain/ Swelling, Increased Redness and Foul Smelling Discharge Call your doctor if you observe: Fever of 101 or Higher Suture Line Care: Avoid Pulling/Pushing and Avoid Pinching/Bending Remove Dressing in: 2 days Cleanse incision/area with: Soap & Water DC O2, CPAP, BIPAP Needs Home O2 Discharge instructions: No Additional Instructions: Keep dressing clean and dry. Change or remove dressing in 2 days. Leave steri strips for 1 week. May protect with a gauze bandaid. Please Follow Up With: Finn Romano MD When: Please call to schedule 2 week follow up appointment at [phone] Meaningful Use Info Meaningful Use Meaningful Use Diagnoses (Choose all that apply): None applicable Discharge Plan Admission Admit Date/Time: 04/01/25 07:18 Attending Provider: Finn Romano Primary Care Provider: Elmer Arnett Chi Discharge Orders/Prescriptions Prescriptions: New oxycodone 5 mg Tablet 5 - 10 mg PO Q4H PRN PRN (Reason: Pain Score 4-10) 5 Days Qty: 7 0RF ciprofloxacin HCl [Cipro] 500 mg tablet 500 mg PO BID Qty: 14 0RF Continued rosuvastatin 40 mg tablet 40 mg PO DAILY aspirin 81 mg tablet,delayed release (DR/EC) 81 mg PO DAILY ascorbic acid (vitamin C) 500 mg capsule 500 mg PO DAILY amlodipine 5 mg tablet 5 mg PO DAILY cholecalciferol (vitamin D3) 25 mcg (1,000 unit) tablet 50 mcg PO DAILY pantoprazole 40 mg tablet,delayed release (DR/EC) 40 mg PO QDAY omega-3 fatty acids 1,000 mg capsule 1,000 mg PO BID metoprolol tartrate 25 MG tablet 25 mg PO BID Qty: 0 0RF multivitamin [Daily Multi-Vitamin] Tablet 1 tab PO DAILY Referrals / Follow Up: Elmer Arnett Chi, MD [Primary Care Provider] - Disposition Disposition (needs filled in before D/C Order can be placed): Home, Self Care
== END 2025-04-02 11:00 | disposition home or self-care (01) ==
LOC: ED 07:47 → MS3 07:51
PROVIDERS: Anesthesiology; Admitting Provider Surgery; Emergency Provider Emergency Medicine; PCP Family Medicine Geriatric Medicine; Visit Provider Surgery
PROC: 0DTJ4ZZ Resection of Appendix, Percutaneous Endoscopic Approach (ICD-10-PCS; CPT 44970; principal; 2025-04-01 12:40)
DX: A41.9 Sepsis, unspecified organism (principal); K35.80 Unspecified acute appendicitis; E87.20 Acidosis, unspecified; E78.00 Pure hypercholesterolemia, unspecified; Z79.82 Long term (current) use of aspirin; I25.10 Atherosclerotic heart disease of native coronary artery without angina pectoris; Z86.718 Personal history of other venous thrombosis and embolism; Z79.899 Other long term (current) drug therapy
CPT/HCPCS: 44970; 00840; 36415; 71045; 74177; 80048; 80053; 81001; 83605; 83690; 84443; 84484; 85025; 85610; 85730; 87040; 87077; 87086; 87186; 88304; 93005; 96361; 96365; 96366; 96375; 99221; 99285; Q9967; A4216; G0378; J2405

== ENCOUNTER → 2025-04-28 | Outpatient (CLI) | payer MEDICARE, SELFPAY ==
--- NOTE | 2025-04-28 08:04 | ECHOD_ITS ---
Reason For Study Reason For Study: Chest Pain Procedure This was a 2D Doppler, Color Flow transthoracic echocardiogram. Exam performed in department. Left Ventricle Normal LV size. Left ventricular systolic function is normal. The left ventricular ejection fraction is 60 %. No regional wall motion abnormalities noted. Right Ventricle Normal RV size. Normal systolic function. Atria Normal left atrium. Normal right atrium. Mitral Valve Normal mitral valve. Tricuspid Valve Normal tricuspid valve. Trivial tricuspid valve insufficiency. Pulmonary artery systolic pressure is 22 mmHg. Aortic Valve Trisinus/trileaflet aortic valve. Mild focal aortic valve calcification. Trivial aortic valve insufficiency. Pulmonic Valve Normal pulmonic valve. Mild (1+) pulmonic valve insufficiency. Great Vessels Normal aortic root. The pulmonary artery is normal size. Normal inferior vena cava. Pericardium/Pleural No pericardial effusion. MMode/2D Measurements & Calculations LVIDd: 4.3 cm IVSd: 1.1 cm Ao root diam: 3.1 cm LVIDs: 2.9 cm LVPWd: 1.0 cm RVDd: 3.1 cm FS: 33.0 % LAV(MOD-bp): 46.9 ml LVAd ap4: 24.2 cm2 SV(MOD-sp4): 42.2 ml LAV(MOD-bp) Indexed: 23.2 ml/m2 LVLd ap4: 7.0 cm SI(MOD-sp4): 20.9 ml/m2 LAV(MOD-sp2): 53.1 ml EDV(MOD-sp4): 69.1 ml LAV(MOD-sp4): 41.3 ml EDV(sp4-el): 71.1 ml LVAs ap4: 13.6 cm2 LVLs ap4: 5.9 cm ESV(MOD-sp4): 26.9 ml ESV(sp4-el): 26.6 ml EF(MOD-sp4): 61.1 % EF(sp4-el): 62.6 % SV(sp4-el): 44.5 ml LA A4 area: 16.4 cm2 LA dimension(2D): 4.1 cm RA A4 area: 13.9 cm2 TAPSE: 1.7 cm Time Measurements MV dec time: 0.21 sec Doppler Measurements & Calculations MV E max minh: 70.0 cm/sec Lat Peak E' Minh: 7.9 cm/sec Med Peak E' Minh: 6.4 cm/sec MV A max minh: 58.5 cm/sec E/E' lat: 8.8 E/E' med: 11.0 MV E/A: 1.2 Ao V2 max: 119.1 cm/sec AI max minh: 300.5 cm/sec MV dec slope: 328.5 cm/sec2 Ao max P.7 mmHg AI max P.2 mmHg Ao V2 mean: 83.8 cm/sec Ao mean P.2 mmHg AI dec slope: 122.6 cm/sec2 Ao V2 VTI: 29.3 cm AI P1/2t: 717.8 msec AV (velocity ratio): 0.69 LV V1 max: 89.4 cm/sec PA V2 max: 96.9 cm/sec PI end-d minh: 104.2 cm/sec LV V1 max P.2 mmHg LV V1 mean P.7 mmHg LV V1 mean: 61.1 cm/sec LV V1 VTI: 20.3 cm TR max minh: 213.2 cm/sec TR max P.2 mmHg ECHO/Echo Complete Interpretation Summary Normal LV size. Left ventricular systolic function is normal. Trivial tricuspid valve insufficiency. The left ventricular ejection fraction is 60 %. Trivial aortic valve insufficiency. Ordering Physician: Elmer Arnett Chi Referring Physician: Elmer Arnett Chi Performed By: Billie West RDCS, RVT
== END | disposition home or self-care (01) ==
PROVIDERS: PCP Family Medicine Geriatric Medicine; Referring Provider Family Medicine Geriatric Medicine; Visit Provider Family Medicine Geriatric Medicine
DX: R07.9 Chest pain, unspecified (principal)
CPT/HCPCS: 93306